=== PATIENT | female | born 1975 | race Caucasian/White ===

== ENCOUNTER 2017-02-05 19:28 | Emergency (ER) | payer MEDICAID ==
[~2017-02-05] VITALS: Ht 175.3 cm; Wt 129.3 kg
[~2017-02-05 19:28] MED LIST: ACET1TAB43; ALPR.25T PO; ALPR1TAB72 PO; AMIT25TA9 PO; ASP325TEC; AZIT250T5 PO; AZTH250C PO; BACL20TA PO; CETI10TA17; CHLO500T4 PO; CLIN150C2 PO; CLN150C PO; CYCL10TA9 PO; DICL75TA2 PO; DOXY100C2 PO; ESTR1TAB24 PO; FLUO20CA25 PO; FLUO40CA PO; FLUO40CA12 PO; FLUT16SP22 NSEACH; FURO-125 PO; FURO20TA4 PO; GBPN600T PO; HCT25T PO; HYDR-757 PO; IPRA4AER IH; KCL10CCR PO; LEVO150T6 PO; LEVO175T2 PO; LEVO200T30 PO; LEVO500T80 PO; MELO-198 PO; MULT1TAB63 PO; NAPR-243 PO; ONDA8TAB13 PO; OSLT75C PO; OXYC-12 PO; OXYC-197 PO; OXYC-309 PO; OXYC1TAB25 PO; POTA10TA10 PO; PRD10T; PRD10T PO; PRD20T PO; PREG50CA2 PO; PREG75CA PO; QTP100T PO; RT-ALBUINH IH; SULF-222 PO; SULF1TAB35 PO; SULF1TAB38 PO; TIZA4TAB3 PO; TIZA4TAB55 PO; TRAZ100T92 PO; TRAZ150T42 PO; VORT10TA PO; [UNRECOGNIZED DRUG - REMARK]; [UNRECOGNIZED DRUG - REMARK]; [UNRECOGNIZED DRUG - REMARK]; vitamin d
--- OUTSIDE RECORDS SUMMARY | 2017-02-05 19:33 | XMS REPORT | Clinical Summary ---
Author Author [facility] Organization [facility] Address Unknown Phone Unavailable Care Team Providers Care Cinder Man Name Role Phone PCP Unavailable Source Comments Some departments are not documenting in the electronic medical record. If you do not see the information that you expected, contact Release of Information in the Health Information Management department at [phone] for further assistance in locating additional records.[facility] Allergies Not on File Current Medications Not on file Active Problems Not on file Social History Tobacco Use Types Packs/Day Years Used Date Never Assessed Sex Assigned at Date Recorded Not on file Last Filed Vital Signs Not on file Plan of Treatment Health Maintenance Due Date Last Done Comments PHYSICAL (COMPREHENSIVE) 12/09/1982 EXAM PERTUSSIS VACCINE 12/09/1986 TETANUS VACCINE 12/09/1992 CERVICAL CANCER SCREENING 12/09/2005 BREAST CANCER SCREENING 2015 INFLUENZA VACCINE 02/09/2017 Results Not on filefrom Last 3 Months
--- OUTSIDE RECORDS SUMMARY | 2017-02-05 19:33 | XMS REPORT ---
Author Author BRENDA WHITEHEAD Organization [employer] Address Unknown Phone Unavailable Care Team Providers Care Bartacker Name Role Phone BRENDA WHITEHEAD CP Unavailable Allergies No Known Allergies Problems Problem Type Condition Code Onset Dates Condition Status Problem Major depressive disorder, single episode, unspecified F32.9 Active Problem Personality disorder, unspecified F60.9 Active Problem Acquired hypothyroidism E03.9 Active Problem History of long-term use of multiple prescription drugs Z92.29 Active Problem Low back pain M54.5 Active Problem Unspecified arthropathy, site unspecified 716.90 Active Problem Anxiety disorder, unspecified F41.9 Active Problem Sinusitis J32.9 Active Problem Edema, unspecified R60.9 Active Medications Medication Code System Code Instructions Start Date End Date Status Dosage Trazodone HCl [facility] [address]-40 100 MG Orally Once a day Dec 23, 2014 1 tablet at bedtime Prozac [facility] [address]-39 40 MG Orally Once a day Apr 03, 2015 2 capsule in the morning Results No Known Results Summary Purpose [employer] Submission
--- OUTSIDE RECORDS SUMMARY | 2017-02-05 19:33 | XMS REPORT ---
Author Author RICARDO ROGERS [facility] Address [address] [place] [address] Care Team Providers Care Tub Mender Name Role Phone RICARDO ROGERS Unavailable PROBLEMS Type Condition ICD9-CM Code LCA20-XE Code Onset Dates Condition Status SNOMED Code Problem Sacral nerve root compression G54.8 Active 054302507 Problem Major depressive disorder F32.9 Active 689608447 Problem Anxiety F41.9 Active 00287449 Problem New daily persistent headache G44.52 Active 510164544 Problem Compression of lumbar nerve root M54.16 Active 837629421 Problem Borderline personality disorder F60.3 Active 45706499 Problem Generalized anxiety disorder F41.1 Active 50308239 Problem Moderate episode of recurrent major depressive disorder F33.1 Active 233309350 Problem Tobacco use disorder F17.200 Active 864675987 Problem Personality disorder, unspecified F60.9 Active 59785824 Problem Mixed hyperlipidemia E78.2 Active 568924535 Problem Controlled type 2 diabetes mellitus without complication, without long -term current use of insulin E11.9 Active 013038647 Problem History of long-term use of multiple prescription drugs Z92.29 Active 214860451 Problem Acquired hypothyroidism E03.9 Active 976318894 Problem Controlled substance agreement terminated Z92.89 Active 948135081 Problem Low back pain M54.5 Active 468593597 Problem Edema, unspecified R60.9 Active 468529485 Problem Bowel incontinence R15.9 Active 87205390 ALLERGIES Substance Reaction Event Type Date Status Robaxin Unknown Drug Allergy Apr, Active Fentanyl Unknown Drug Allergy Apr, Active SOCIAL HISTORY No smoking Hx information available PLAN OF CARE Activity Details Follow Up 3 Months or pending lab Reason:lyrica/thyroid VITAL SIGNS Height 69 in 2016-04-24 Weight 283.0 lbs 2016-04-24 Temperature 98.0 degrees Fahrenheit 2016-04-24 Heart Rate 86 bpm 2016-04-24 Respiratory Rate 20 2016-04-24 BMI 41.79 kg/m2 2016-04-24 Blood pressure systolic 130 mmHg 2016-04-24 Blood pressure diastolic 70 mmHg 2016-04-24 MEDICATIONS Medication Instructions Dosage Frequency Start Date End Date Duration Status Klor-Con M10 10 MEQ Orally Once a day prn 1 tablet Active Trintellix 10 MG Orally Once a day 1 tablet 24h Feb, 30 days Active Levothyroxine Sodium 150 MCG orally daily 1 tablet 24h 30 Active Flonase 50 MCG/ACT Nasally Once a day 1 spray in each nostril 24h Nov, 30 day(s) Active Albuterol Sulfate HFA 108 (90 Base) MCG/ACT Inhalation every 2-4 hrs PRN 2 puffs as needed May, Active Trazodone HCl 100 MG Orally Once a day 1 tablet at bedtime 24h 30 days Active Diclofenac Sodium 75 MG Orally Twice a day 1 tab 12h Active Lyrica 75 MG Orally 2 times a day 1 capsule 12h Active Levaquin 500 MG Orally Once a day 1 tablet 24h Apr, Apr, 10 day(s) Active Xanax 1 MG Orally Three times a day 1.5 tablets 8h Mar, 30 days Active Combivent Respimat 20-100 MCG/ACT Inhalation Four times a day 1 puff 6h Apr, Apr, Active Lasix 20 MG Orally Once a day prn 1 tablet Active RESULTS Name Result Date Reference Range TSH 2016-04-24 TSH 1.380 0.450-4.500 CBC 2016-04-24 WBC 14.5 3.4-10.8 RBC 4.24 3.77-5.28 Hemoglobin 13.3 11.1-15.9 Hematocrit 39.8 34.0-46.6 MCV 94 79-97 MCH 31.4 26.6-33.0 MCHC 33.4 31.5-35.7 RDW 14.2 12.3-15.4 Platelets 456 150-379 Neutrophils 60 Lymphs 30 Monocytes 5 Eos 3 Basos 1 Immature Cells Neutrophils (Absolute) 8.8 1.4-7.0 Lymphs (Absolute) 4.4 0.7-3.1 Monocytes(Absolute) 0.7 0.1-0.9 Eos (Absolute) 0.4 0.0-0.4 Baso (Absolute) 0.1 0.0-0.2 Immature Granulocytes 1 Immature Grans (Abs) 0.1 0.0-0.1 NR Hematology Comments: LIPID PANEL 2016-04-24 Cholesterol, Total 285 100-199 Triglycerides 184 0-149 HDL Cholesterol 52 >39 VLDL Cholesterol James 37 5-40 LDL Cholesterol Calc 196 0-99 Comment: CMP 2016-04-24 Glucose, Serum 141 65-99 BUN 15 6-24 Creatinine, Serum 0.81 0.57-1.00 eGFR If NonAfricn Am 91 >59 eGFR If Africn Am 105 >59 BUN/Creatinine Ratio 19 9-23 Sodium, Serum 141 134-144 Potassium, Serum 3.7 3.5-5.2 Chloride, Serum 99 96-106 Carbon Dioxide, Total 27 18-29 Calcium, Serum 9.1 8.7-10.2 Protein, Total, Serum 6.9 6.0-8.5 Albumin, Serum 4.4 3.5-5.5 Globulin, Total 2.5 1.5-4.5 A/G Ratio 1.8 1.1-2.5 Bilirubin, Total 0.5 0.0-1.2 Alkaline Phosphatase, S 74 39-117 AST (SGOT) 38 0-40 ALT (SGPT) 57 0-32 PROCEDURES Procedure Date Ordered Related Diagnosis Body [facility], 2016 Office Visit, Est Pt., Level 4 Apr 24, 2016 VENIPUNCT, ROUTINE* Apr 24, 2016 IMMUNIZATIONS No Known Immunizations
--- OUTSIDE RECORDS SUMMARY | 2017-02-05 19:33 | XMS REPORT ---
Author Author RICARDO ROGERS [facility] Address [address] [place] [address] Care Team Providers Care Forestry Extension Specialist Name Role Phone RICARDO ROGERS Unavailable PROBLEMS Type Condition ICD9-CM Code MFX20-QF Code Onset Dates Condition Status SNOMED Code Problem Sacral nerve root compression G54.8 Active 904947735 Problem Major depressive disorder F32.9 Active 500097676 Problem Anxiety F41.9 Active 60808525 Problem New daily persistent headache G44.52 Active 145237574 Problem Compression of lumbar nerve root M54.16 Active 642605753 Problem Borderline personality disorder F60.3 Active 20785448 Problem Generalized anxiety disorder F41.1 Active 10737737 Problem Moderate episode of recurrent major depressive disorder F33.1 Active 713465761 Problem Tobacco use disorder F17.200 Active 965660379 Problem Personality disorder, unspecified F60.9 Active 47168867 Problem Mixed hyperlipidemia E78.2 Active 852293196 Problem Controlled type 2 diabetes mellitus without complication, without long -term current use of insulin E11.9 Active 555520725 Problem History of long-term use of multiple prescription drugs Z92.29 Active 348600445 Problem Acquired hypothyroidism E03.9 Active 113396563 Problem Controlled substance agreement terminated Z92.89 Active 501793588 Problem Low back pain M54.5 Active 284443309 Problem Edema, unspecified R60.9 Active 041280986 Problem Bowel incontinence R15.9 Active 58469850 ALLERGIES Unknown Allergies SOCIAL HISTORY No smoking Hx information available PLAN OF CARE VITAL SIGNS MEDICATIONS Unknown Medications RESULTS No Results PROCEDURES No Known procedures IMMUNIZATIONS No Known Immunizations
--- OUTSIDE RECORDS SUMMARY | 2017-02-05 19:34 | XMS REPORT ---
Author Author BRENDA WHITEHEAD [facility] [employer] Address Unknown Phone Unavailable Care Team Providers Care Supervisor Agency Appointments Name Role Phone BRENDA WHITEHEAD CP Unavailable Allergies, Adverse Reactions, Alerts Substance Reaction Event Type Robaxin Info Not Available Drug Allergy Fentanyl Info Not Available Drug Allergy Problems Problem Type Condition Code Onset Dates Condition Status Problem Controlled substance agreement terminated Z92.89 Active Problem History of long-term use of multiple prescription drugs Z92.29 Active Problem Edema, unspecified R60.9 Active Problem Major depressive disorder F32.9 Active Problem Anxiety F41.9 Active Problem Generalized anxiety disorder F41.1 Active Problem Low back pain M54.5 Active Problem Acquired hypothyroidism E03.9 Active Problem Sacral nerve root compression G54.8 Active Problem Bowel incontinence R15.9 Active Assessment Major depressive disorder F32.9 Active Assessment Generalized anxiety disorder F41.1 Active Problem Personality disorder, unspecified F60.9 Active Problem Major depressive disorder, single episode, unspecified F32.9 Active Medications Medication Code System Code Instructions Start Date End Date Status Dosage Lasix [facility] [address]-06 20 MG Orally Once a day prn 1 tablet Klor-Con M10 [facility] [address]-72 10 MEQ Orally Once a day prn 1 tablet Lyrica [facility] [address]-07 75 MG Orally 2 times a day 1 capsule Flonase [facility] [address]-28 50 MCG/ACT Nasally Once a day December 07, 2015 1 spray in each nostril Levothyroxine Sodium [facility] [address]-09 150 MCG TAKE ONE TABLET BY MOUTH ONCE DAILY Trazodone HCl [facility] [address]-38 100 MG Orally Once a day 1 tablet at bedtime Albuterol Sulfate HFA [facility] [address]-11 108 (90 Base) MCG/ACT Inhalation 2 times a day, prn wheezing May 26, 2015 2 puffs as needed Trintellix [facility] [address]-85 10 MG Orally Once a day Feb 21, 2016 1 tablet Diclofenac Sodium [facility] [address]-77 75 MG Orally Twice a day 1 tab Xanax [facility] [address]-76 1 MG Orally three times per day Apr 03, 2015 1 1/2 tablets Procedures Procedure Coding System Code Date Office Visit, Est Pt., Level 3 CPT-4 40553 Feb 21, 2016 Vital Signs Date/Time: Feb 21, 2016 Cardiac Monitoring Heart Rate 80 bpm Weight 283.4 lbs Height 69 in BMI 41.85 Index Blood Pressure Diastolic 81 mmHg Blood Pressure Systolic 127 mmHg Results No Known Results Summary Purpose [employer] Submission
--- OUTSIDE RECORDS SUMMARY | 2017-02-05 19:34 | XMS REPORT ---
Author Author RICARDO ROGERS Organization [employer] Address Unknown Phone Unavailable Care Team Providers Care Sales Applications Engineer Name Role Phone RICARDO ROGERS CP Unavailable Allergies No Known Allergies Problems [...] Instructions Start Date End Date Status Dosage Oxycodone-Acetaminophen [facility] [address]-24 5-325 MG Orally every 6 hrs prn- must last 28 days 1-2 tablet as needed Results No Known Results Summary Purpose [employer] Submission
--- OUTSIDE RECORDS SUMMARY | 2017-02-05 19:34 | XMS REPORT ---
Author Author ASH FREEDMAN Organization [facility] Address [address] [place] [address] Care Team Providers Care Loom Winder Tender Name Role Phone ASH FREEDMAN Unavailable PROBLEMS Type Condition ICD9-CM Code MUH54-YH Code Onset Dates Condition Status SNOMED Code Problem Edema, unspecified R60.9 Active 621238026 Problem Acquired hypothyroidism E03.9 Active 001165677 Problem History of long-term use of multiple prescription drugs Z92.29 Active 956011042 Problem Personality disorder, unspecified F60.9 Active 35675029 Problem Major depressive disorder, single episode, unspecified F32.9 Active 22217375 Problem Controlled substance agreement terminated Z92.89 Active 181921042 Problem Generalized anxiety disorder F41.1 Active 91214207 Problem Major depressive disorder F32.9 Active 213027276 Problem Bowel incontinence R15.9 Active 37998381 Problem Low back pain M54.5 Active 689407944 Problem Anxiety F41.9 Active 08374913 Problem Sacral nerve root compression G54.8 Active 160321268 ALLERGIES Unknown Allergies SOCIAL HISTORY No smoking Hx information available PLAN OF CARE VITAL SIGNS MEDICATIONS Unknown Medications RESULTS No Results PROCEDURES No Known procedures IMMUNIZATIONS No Known Immunizations
--- OUTSIDE RECORDS SUMMARY | 2017-02-05 19:34 | XMS REPORT ---
Author Author BRENDA WHITEHEAD Organization [facility] Address Unknown Care Team Providers Care Dining Room Maid Name Role Phone BRENDA WHITEHEAD Unavailable PROBLEMS Type Condition ICD9-CM Code [id number] Code Onset Dates Condition Status SNOMED Code Problem Edema, unspecified R60.9 Active 665082180 Problem Acquired hypothyroidism E03.9 Active 158986588 Problem History of long-term use of multiple prescription drugs Z92.29 Active 126150339 Problem Personality disorder, unspecified F60.9 Active 77742144 Problem Major depressive disorder, single episode, unspecified F32.9 Active 97827319 Problem Controlled substance agreement terminated Z92.89 Active 639989581 Problem Generalized anxiety disorder F41.1 Active 04499044 Problem Major depressive disorder F32.9 Active 499586942 Problem Bowel incontinence R15.9 Active 53128635 Problem Low back pain M54.5 Active 615206741 Problem Anxiety F41.9 Active 07187482 Problem Sacral nerve root compression G54.8 Active 513087205 ALLERGIES Unknown Allergies SOCIAL HISTORY No smoking Hx information available PLAN OF CARE VITAL SIGNS MEDICATIONS Medication Instructions Dosage Frequency Start Date End Date Duration Status Xanax 1 MG Orally three times per day 1 1/2 tablets Mar, Active RESULTS No Results PROCEDURES No Known procedures IMMUNIZATIONS No Known Immunizations
--- OUTSIDE RECORDS SUMMARY | 2017-02-05 19:34 | XMS REPORT ---
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 Active 525153892 Problem Borderline personality disorder F60.3 Active 75489868 Problem Generalized anxiety disorder F41.1 Active 15896466 Problem Tobacco use disorder F17.200 Active 040109011 Problem Moderate episode of recurrent major depressive disorder F33.1 Active 051014451 Problem Mixed hyperlipidemia E78.2 Active 921708096 Problem Controlled type 2 diabetes mellitus without complication, without long -term current use of insulin E11.9 Active 181924983 Problem Personality disorder, unspecified F60.9 Active 84364951 Problem Edema, unspecified R60.9 Active 939302460 Problem Low back pain M54.5 Active 899531194 Problem Controlled substance agreement terminated Z92.89 Active 226999967 Problem Acquired hypothyroidism E03.9 Active 697341715 Problem History of long-term use of multiple prescription drugs Z92.29 Active 625121968 Problem Anxiety F41.9 Active 21975324 ALLERGIES Substance Reaction Event Type Date Status Robaxin Unknown Drug Allergy Jun, Active Fentanyl Unknown Drug Allergy Jun, Active SOCIAL HISTORY Never Assessed PLAN OF CARE Activity Details Follow Up as needed and 6 months Reason:thyroid VITAL SIGNS Height 69 in 2016-07-02 Weight 289 lbs 2016-07-02 Temperature 98.2 degrees Fahrenheit 2016-07-02 Heart Rate 86 bpm 2016-07-02 Respiratory Rate 2016-07-02 BMI 42.67 kg/m2 2016-07-02 Blood pressure systolic 124 mmHg 2016-07-02 Blood pressure diastolic 86 mmHg 2016-07-02 MEDICATIONS Medication Instructions Dosage Frequency Start Date End Date Duration Status Lovastatin 20 mg Orally Once a day 1 tablet with a meal 24h Apr, 30 day(s) Active Trazodone HCl 100 MG Orally Once a day 1 tablet at bedtime 24h 30 days Active Trintellix 10 MG Orally Once a day 1 tablet 24h 12 Feb, 2016 30 days Active Diclofenac Sodium 75 MG Orally Twice a day 1 tab 12h Active Klor-Con M10 10 MEQ Orally Once a day prn 1 tablet Active Levothyroxine Sodium 150 MCG orally daily 1 tablet 24h 30 Active Albuterol Sulfate HFA 108 (90 Base) MCG/ACT Inhalation every 2-4 hrs PRN 2 puffs as needed May, Active Flonase 50 MCG/ACT Nasally Once a day 1 spray in each nostril 24h Nov, 30 day(s) Active Xanax 1 MG Orally Three times a day 1.5 tablets 8h Mar, 30 days Active Lyrica 25 MG Orally 2 times a day 1 capsule 12h Active Chantix 1 MG Take 1/2 tablet for 3 days; 1/2 tablet twice a day for 3 days ; then 1 tablet twice a day thereafter Jun, Jul, 30 day(s ) Active Lasix 20 MG Orally Once a day prn 1 tablet Active RESULTS Name Result Date Reference Range UA LONG DIP (IN HOUSE) 2016-07-11 Lot # [id number] Exp date 05/2017 Clarity clear Color yellow Odor no GLU neg HIMANSHU neg KET neg SG 1.020 BLO neg pH 5.5 Protein neg URO 0.2 NIT neg GILBERT neg Lot # Exp date PROCEDURES Procedure Date Ordered Result Body Site URINALYSIS, AUTO, W/O SCOPE Jul 02, 2016 IMMUNIZATIONS No Known Immunizations MEDICAL (GENERAL) HISTORY Type Description Date Medical History cardiovascular disease- edema Medical History Hypothyroidism Medical History chronic low back pain Medical History depression Medical History panic disorder Medical History vitamin D deficiency Medical History Right lung biopsy 01/1996 Medical History Unspecified vitamin D deficiency Medical History Controlled substance agreement terminated Medical History spinal stenosis, arthritis, bulging disc's Surgical History wisdom teeth extraction Surgical History hysterectomy 2004 Surgical History orthopedic surgery broken right arm 2003 Surgical History Birthmark removed from left lower leg [address] Head at [facility] 07/2014 Surgical History spinal stimulator - dr. vi [place] mo 2016 Hospitalization History pneumonia Hospitalization History x1 night for observation after spinal stimulator.
--- OUTSIDE RECORDS SUMMARY | 2017-02-05 19:34 | XMS REPORT ---
Author Author RICARDO ROGERS Organization [employer] Address Unknown Phone Unavailable Care Team Providers Care Processing Technician Name Role Phone RICARDO ROGERS CP Unavailable [...] Instructions Start Date End Date Status Dosage Levothyroxine Sodium [facility] [address]-95 175 MCG Orally Once a day Apr 10, 2015 1 tablet Levothyroxine Sodium [facility] [address]-52 150 MCG Orally Once a day TAKE ONE TABLET BY MOUTH DAILY Results No Known Results Summary Purpose [employer] Submission
--- OUTSIDE RECORDS SUMMARY | 2017-02-05 19:34 | XMS REPORT ---
Author Author RICARDO ROGERS [facility] Address [address] [place] [address] Care Team Providers Care Pants Busheler Name Role Phone RICARDO ROGERS Unavailable PROBLEMS Type Condition ICD9-CM Code AVD89-CL Code Onset Dates Condition Status SNOMED Code Problem Sacral nerve root compression G54.8 Active 274376714 Problem Major depressive disorder F32.9 Active 576854738 Problem Anxiety F41.9 Active 84695747 Problem New daily persistent headache G44.52 Active 584337987 Problem Compression of lumbar nerve root M54.16 Active 671837671 Problem Borderline personality disorder F60.3 Active 96633242 Problem Generalized anxiety disorder F41.1 Active 60197212 Problem Moderate episode of recurrent major depressive disorder F33.1 Active 570832702 Problem Tobacco use disorder F17.200 Active 594656846 Problem Personality disorder, unspecified F60.9 Active 48036558 Problem Mixed hyperlipidemia E78.2 Active 710495051 Problem Controlled type 2 diabetes mellitus without complication, without long -term current use of insulin E11.9 Active 785317457 Problem History of long-term use of multiple prescription drugs Z92.29 Active 265195697 Problem Acquired hypothyroidism E03.9 Active 973523820 Problem Controlled substance agreement terminated Z92.89 Active 802226584 Problem Low back pain M54.5 Active 159601978 Problem Edema, unspecified R60.9 Active 818459421 Problem Bowel incontinence R15.9 Active 04284330 ALLERGIES Unknown Allergies SOCIAL HISTORY No smoking Hx information available PLAN OF CARE VITAL SIGNS MEDICATIONS Medication Instructions Dosage Frequency Start Date End Date Duration Status Lovastatin 20 mg Orally Once a day 1 tablet with a meal 24h Apr, 30 day(s) Active RESULTS No Results PROCEDURES No Known procedures IMMUNIZATIONS No Known Immunizations
--- OUTSIDE RECORDS SUMMARY | 2017-02-05 19:34 | XMS REPORT ---
Author Author RICARDO ROGERS [facility] eClinicalWorks Address Unknown Phone Unavailable Care Team Providers Care Director Client Name Role Phone RICARDO ROGERS CP Unavailable Allergies, Adverse Reactions, Alerts Substance Reaction Event Type Tylenol Info Not Available Drug Allergy Fentanyl Info Not Available Drug Allergy Problems Problem Type Condition ICD-9 Code Onset Dates Condition Status Problem Major depressive disorder, recurrent episode, severe, without mention of psychotic behavior 296.33 Active Problem Unspecified arthropathy, site unspecified 716.90 Active Problem Borderline personality disorder 301.83 Active Problem Unspecified personality disorder 301.9 Active Problem Lumbago 724.2 Active Problem Generalized anxiety disorder 300.02 Active Problem Unspecified vitamin D deficiency 268.9 Active Problem Unspecified hypothyroidism 244.9 Active Problem Major depressive disorder, recurrent episode, severe, specified as with psychotic behavior 296.34 Active Problem Panic disorder without agoraphobia 300.01 Active Assessment Bulging lumbar disc 722.10 Active Assessment Spinal cord compression 336.9 Active Assessment Lumbago 724.2 Active Assessment Obesity 278.00 Active Problem Bipolar disorder, unspecified 296.80 Active Medications Medication Code System Code Instructions Start Date End Date Status Dosage tizanidine NDC 0 4 mg 3 times a day May 19, 2014 2 tabs Diclofenac Sodium [facility] [address]-15 75 MG Orally Twice a day May 19, 2014 1 tab Oxycodone-Acetaminophen [facility] [address]-32 5-325 MG Orally every 6 hrs prn 1-2 tablet as needed Xanax [facility] [address]-62 1 MG Orally Twice a day qAM and 1500 and 1 tablet po qHS PRN sleep November 04, 2014 1 1/2 tablets Levothyroxine Sodium [facility] [address]-19 150 MCG Orally Once a day TAKE ONE TABLET BY MOUTH DAILY Diethylpropion HCl ER [facility] [address]-41 75 MG Orally Once a day Feb 01, 2015 Feb 15, 2015 1 tablet Lasix [facility] [address]-68 20 MG Orally Once a day 1 tablet Alprazolam [facility] 39348761109 1 MG TAKE ONE-HALF TABLET BY MOUTH IN THE MORNING, ONE-HALF TABLET AT 3:00PM AND ONE TABLET AT BEDTIME FOR SLEEP NEEDED (MUST KEEP BEHAVIORAL Prozac [facility] [address]-03 20 MG Orally Once a day 3 capsule in the morning Gabapentin [facility] [address]-74 600 MG Orally Three times a day 1 capsule Trazodone HCl [facility] [address]-62 100 MG Orally Once a day Dec 23, 2014 1 tablet at bedtime Klor-Con M10 [facility] [address]-68 10 MEQ Orally Once a day 1 tablet Procedures Procedure Coding System Code Date Office Visit, Est Pt., Level 3 CPT-4 93547 Feb 01, 2015 Vital Signs Date/Time: Feb 01, 2015 Temperature 99.0 F Weight 282.0 lbs Height 69 in BMI 41.64 Index Blood Pressure Diastolic 68 mmHg Blood Pressure Systolic 114 mmHg Cardiac Monitoring Heart Rate 80 bpm Results No Known Results Summary Purpose eClinicalWorks Submission
--- OUTSIDE RECORDS SUMMARY | 2017-02-05 19:35 | XMS REPORT ---
Author Author BRENDA WHITEHEAD Organization eClinical[employer] Address Unknown Phone Unavailable Care Team Providers Care Promotions Manager Name Role Phone BRENDA WHITEHEAD CP Unavailable Allergies No Known Allergies Problems Problem Type Condition Code Onset Dates Condition Status Problem Personality disorder, unspecified F60.9 Active Problem Controlled substance agreement terminated Z92.89 Active Problem Major depressive disorder, single episode, unspecified F32.9 Active Problem Sacral nerve root compression G54.8 Active Problem Bowel incontinence R15.9 Active Problem Anxiety F41.9 Active Problem History of long-term use of multiple prescription drugs Z92.29 Active Problem Edema, unspecified R60.9 Active Problem Low back pain M54.5 Active Problem Acquired hypothyroidism E03.9 Active Medications Medication Code System Code Instructions Start Date End Date Status Dosage Xanax [facility] [address]-90 1 MG Orally three times per day Apr 03, 2015 1 1/2 tablets Results No Known Results Summary Purpose eClinicalWorks Submission
--- OUTSIDE RECORDS SUMMARY | 2017-02-05 19:35 | XMS REPORT ---
Author Author RICARDO ROGERS Organization eClinicalWorks Address Unknown Phone Unavailable Care Team Providers Care Supervisor Electronic Coils Name Role Phone RICARDO ROGERS CP Unavailable Allergies No Known Allergies Problems Problem Type Condition Code Onset Dates Condition Status Problem Personality disorder, unspecified F60.9 Active Problem Anxiety disorder, unspecified F41.9 Active Problem Major depressive disorder, single episode, unspecified F32.9 Active Problem Low back pain M54.5 Active Problem Acquired hypothyroidism E03.9 Active Problem Fatigue R53.83 Active Problem Edema, unspecified R60.9 Active Problem Unspecified arthropathy, site unspecified 716.90 Active Problem History of long-term use of multiple prescription drugs Z92.29 Active Problem Sinusitis J32.9 Active Medications Medication Code System Code Instructions Start Date End Date Status Dosage Oxycodone-Acetaminophen [facility] [address]-81 5-325 MG Orally every 6 hrs prn 1-2 tablet as needed Results No Known Results Summary Purpose eClinicalWorks Submission
--- OUTSIDE RECORDS SUMMARY | 2017-02-05 19:35 | XMS REPORT ---
Author Author ELEUTERIO DUARTE eClinicalWorks Address Unknown Phone Unavailable Care Team Providers Care Banana Handler Name Role Phone ELEUTERIO DUARTE CP Unavailable Allergies, Adverse Reactions, Alerts Substance Reaction Event Type Tylenol Info Not Available Drug Allergy Fentanyl Info Not Available Drug Allergy Problems Problem Type Condition Code Onset Dates Condition Status Assessment Bronchitis J40 Active Problem Major depressive disorder, single episode, [...] Start Date End Date Status Dosage Oxycodone-Acetaminophen [facility] [address]-80 5-325 MG Orally every 6 hrs prn- must last 28 days 1-2 tablet as needed Cough Drops [facility] [address]38 Mouth/Throat not defined Prozac [facility] [address]-91 40 MG Orally Once a day Apr 03, 2015 2 capsule in the morning Klor-Con M10 [facility] [address]-15 10 MEQ Orally Once a day prn 1 tablet Trazodone HCl [facility] [address]-43 100 MG Orally Once a day Dec 23, 2014 1 tablet at bedtime Albuterol Sulfate HFA [facility] [address]-79 108 (90 Base) MCG/ACT Inhalation 2 times a day, prn wheezing May 26, 2015 2 puffs as needed Levothyroxine Sodium [facility] [address]-16 175 MCG Orally Once a day Apr 10, 2015 1 tablet tizanidine [facility] 0 4 mg 3 times a day May 19, 2014 2 tabs Diclofenac Sodium [facility] [address]-11 75 MG Orally Twice a day May 19, 2014 1 tab Gabapentin [facility] [address]-72 600 MG Orally Three times a day 1 capsule PredniSONE [facility] [address]-77 10 MG Orally Once a day May 26, 2015 May 29, 2015 as directed Lasix [facility] [address]-68 20 MG Orally Once a day prn 1 tablet Zyrtec Allergy [facility] [address]-19 10 MG Orally Once a day May 26, 2015 Jun 25, 2015 as directed Mucinex [facility] [address]-96 600 MG Orally every 12 hrs May 26, 2015 May 31, 2015 1 tablet as needed Mucinex Sinus-Max [facility] [address]-13 4-17-981-325 MG Orally not defined Xanax [facility] [address]-78 1 MG Orally 1 1/2 tablets three times per day Apr 03, 2015 as directed Procedures Procedure Coding System Code Date Office Visit, Est Pt., Level 3 CPT-4 98119 May 26, 2015 Vital Signs Date/Time: May 26, 2015 Temperature 98 F Weight 282.4 lbs Height 69 in BMI 41.70 Index Blood Pressure Diastolic 76 mmHg Blood Pressure Systolic 114 mmHg Cardiac Monitoring Heart Rate 84 bpm Results No Known Results Summary Purpose eClinicalWorks Submission
--- OUTSIDE RECORDS SUMMARY | 2017-02-05 19:35 | XMS REPORT ---
Author Author RICARDO ROGERS [employer]ClinicalWorks Address Unknown Phone Unavailable Care Team Providers Care Information Developer Name Role Phone RICARDO ROGERS CP Unavailable [...] Panic disorder without agoraphobia 300.01 Active Assessment Morbid (severe) obesity due to excess calories E66.01 Active Assessment Upper respiratory tract infectious disease J06.9 Active Problem Bipolar disorder, unspecified 296.80 Active Medications Medication Code System Code Instructions Start Date End Date Status Dosage Diethylpropion HCl ER [facility] [address]-18 75 MG Orally Once a day Feb 01, 2015 Feb 15, 2015 1 tablet Klor-Con M10 [facility] [address]-41 10 MEQ Orally Once a day 1 tablet Diclofenac Sodium [facility] [address]-38 75 MG Orally Twice a day May 19, 2014 1 tab PredniSONE [facility] [address]-45 10 MG Orally Once a day Feb 14, 2015 Feb 19, 2015 1 tablet with food or milk Gabapentin [facility] [address]-70 600 MG Orally Three times a day 1 capsule Trazodone HCl [facility] [address]-27 100 MG Orally Once a day Dec 23, 2014 1 tablet at bedtime tizanidine ND 0 4 mg 3 times a day May 19, 2014 2 tabs Lasix [facility] [address]-81 20 MG Orally Once a day 1 tablet Levothyroxine Sodium [facility] [address]-52 150 MCG Orally Once a day TAKE ONE TABLET BY MOUTH DAILY Alprazolam [facility] 88981945657 1 MG TAKE ONE-HALF TABLET BY MOUTH IN THE MORNING, ONE-HALF TABLET AT 3:00PM AND ONE TABLET AT BEDTIME FOR SLEEP NEEDED (MUST KEEP BEHAVIORAL Oxycodone-Acetaminophen [facility] [address]-51 5-325 MG Orally every 6 hrs prn 1-2 tablet as needed Prozac [facility] [address]-06 20 MG Orally Once a day 3 capsule in the morning Procedures Procedure Coding System Code Date Office Visit, Est Pt., Level 3 CPT-4 77951 Feb 14, 2015 Vital Signs Date/Time: Feb 14, 2015 Temperature 97.0 F Weight 282.9 lbs Height 69 in BMI 41.77 Index Blood Pressure Diastolic 72 mmHg Blood Pressure Systolic 122 mmHg Cardiac Monitoring Heart Rate 78 bpm Results No Known Results Summary Purpose eClinicalWorks Submission
--- OUTSIDE RECORDS SUMMARY | 2017-02-05 19:35 | XMS REPORT ---
Author Author RICARDO ROGERS [facility] eClinicalWorks Address Unknown Phone Unavailable Care Team Providers Care Nitric Acid Concentrator Operator Name Role Phone RICARDO ROGERS CP Unavailable Allergies, Adverse Reactions, Alerts Substance Reaction Event Type Robaxin Info Not Available Drug Allergy Fentanyl Info Not Available Drug Allergy Problems Problem Type Condition Code Onset Dates Condition Status Problem Personality disorder, unspecified F60.9 Active Problem Controlled substance agreement terminated Z92.89 Active Problem Major depressive disorder, single episode, unspecified F32.9 Active Assessment Acute non-recurrent maxillary sinusitis J01.00 Active Problem Sacral nerve root compression G54.8 Active Problem Bowel incontinence R15.9 Active Problem Anxiety F41.9 Active Problem History of long-term use of multiple prescription drugs Z92.29 Active Problem Edema, unspecified R60.9 Active Problem Low back pain M54.5 Active Problem Acquired hypothyroidism E03.9 Active Medications Medication Code System Code Instructions Start Date End Date Status Dosage Lyrica [facility] [address]-66 25 MG Orally 2 times a day 1 capsule Flonase [facility] [address]-86 50 MCG/ACT Nasally Once a day December 07, 2015 1 spray in each nostril Chlorzoxazone [facility] [address]-40 500 MG Orally Three times a day 1 tablet as needed Klor-Con M10 [facility] [address]-76 10 MEQ Orally Once a day prn 1 tablet Albuterol Sulfate HFA [facility] [address]-23 108 (90 Base) MCG/ACT Inhalation 2 times a day, prn wheezing May 26, 2015 2 puffs as needed Diclofenac Sodium [facility] [address]-38 75 MG Orally Twice a day 1 tab Xanax [facility] [address]-10 1 MG Orally three times per day Apr 03, 2015 1 1/2 tablets Azithromycin [facility] [address]-61 250 MG Orally Once a day December 07, 2015 Dec 15, 2015 2 tablets on the first day, then 1 tablet daily for 7 days Prozac [facility] [address]-49 40 MG TAKE TWO CAPSULES BY MOUTH IN THE MORNING Lasix [facility] [address]-90 20 MG Orally Once a day prn 1 tablet Levothyroxine Sodium [facility] [address]-27 150 MCG Orally Once a day August 14, 2015 1 tablet Trazodone HCl [facility] [address]-94 100 MG TAKE ONE TABLET BY MOUTH AT BEDTIME Procedures Procedure Coding System Code Date Office Visit, Est Pt., Level 3 CPT-4 97018 December 07, 2015 Vital Signs Date/Time: December 07, 2015 Cardiac Monitoring Heart Rate 80 bpm Weight 273.5 lbs Height 69 in BMI 40.38 Index Blood Pressure Diastolic 82 mmHg Blood Pressure Systolic 124 mmHg Results No Known Results Summary Purpose eClinicalWorks Submission
--- OUTSIDE RECORDS SUMMARY | 2017-02-05 19:35 | XMS REPORT ---
Author Author RICARDO ROGERS [facility] eClinicalWorks Address Unknown Phone Unavailable Care Team Providers Care Screw Remover Name Role Phone RICARDO ROGERS CP Unavailable Allergies, Adverse Reactions, Alerts Substance Reaction Event Type Robaxin Info Not Available Drug Allergy Fentanyl Info Not Available Drug Allergy Problems Problem Type Condition Code Onset Dates Condition Status Problem Personality disorder, unspecified F60.9 Active Problem Controlled substance agreement terminated Z92.89 Active Problem Major depressive disorder, single episode, unspecified F32.9 Active Assessment Lipoma of right lower extremity D17.23 Active Problem Sacral nerve root compression G54.8 Active Problem Bowel incontinence R15.9 Active Problem Anxiety F41.9 Active Problem History of long-term use of multiple prescription drugs Z92.29 Active Problem Edema, unspecified R60.9 Active Problem Low back pain M54.5 Active Problem Acquired hypothyroidism E03.9 Active Medications Medication Code System Code Instructions Start Date End Date Status Dosage Klor-Con M10 [facility] [address]-93 10 MEQ Orally Once a day prn 1 tablet Albuterol Sulfate HFA [facility] [address]-20 108 (90 Base) MCG/ACT Inhalation 2 times a day, prn wheezing May 26, 2015 2 puffs as needed Chlorzoxazone [facility] [address]-55 500 MG Orally Three times a day 1 tablet as needed Diclofenac Sodium [facility] [address]-28 75 MG Orally Twice a day 1 tab Xanax [facility] [address]-24 1 MG Orally three times per day Apr 03, 2015 1 1/2 tablets Lasix [facility] [address]-92 20 MG Orally Once a day prn 1 tablet Lyrica [facility] [address]-03 25 MG Orally 2 times a day 1 capsule Trazodone HCl [facility] [address]-81 100 MG TAKE ONE TABLET BY MOUTH AT BEDTIME Prozac [facility] [address]-17 40 MG TAKE TWO CAPSULES BY MOUTH IN THE MORNING Flonase [facility] [address]-63 50 MCG/ACT Nasally Once a day December 07, 2015 1 spray in each nostril Levothyroxine Sodium [facility] [address]-65 150 MCG TAKE ONE TABLET BY MOUTH ONCE DAILY Procedures Procedure Coding System Code Date Office Visit, Est Pt., Level 3 CPT-4 65657 Dec 20, 2015 Vital Signs Date/Time: Dec 20, 2015 Cardiac Monitoring Heart Rate 74 bpm Weight 282.8 lbs Height 69 in BMI 41.76 Index Blood Pressure Diastolic 80 mmHg Blood Pressure Systolic 110 mmHg Results No Known Results Summary Purpose eClinicalWorks Submission
--- OUTSIDE RECORDS SUMMARY | 2017-02-05 19:36 | XMS REPORT ---
Author Author RICARDO ROGERS Organization eClinicalWorks Address Unknown Phone Unavailable Care Team Providers Care Sales Representative Aircraft Name Role Phone RICARDO ROGERS CP Unavailable Allergies No Known Allergies Problems Problem Type Condition ICD-9 Code Onset Dates Condition Status Problem Major depressive disorder, recurrent episode, severe, without mention of psychotic behavior 296.33 Active Problem Unspecified arthropathy, site unspecified 716.90 Active Problem Borderline personality disorder 301.83 Active Problem Bipolar disorder, unspecified 296.80 Active Problem Unspecified personality disorder 301.9 Active Problem Lumbago 724.2 Active Problem Generalized anxiety disorder 300.02 Active Problem Unspecified vitamin D deficiency 268.9 Active Problem Unspecified hypothyroidism 244.9 Active Problem Major depressive disorder, recurrent episode, severe, specified as with psychotic behavior 296.34 Active Problem Panic disorder without agoraphobia 300.01 Active Medications Medication Code System Code Instructions Start Date End Date Status Dosage Oxycodone-Acetaminophen [facility] [address]-86 5-325 MG Orally every 6 hrs as needed prn must last 30 days. 1-2 tablet as needed Alprazolam [facility] [address]-23 1 MG TAKE ONE-HALF TABLET BY MOUTH IN THE MORNING, ONE-HALF TABLET AT 3:00PM AND ONE TABLET AT BEDTIME FOR SLEEP NEEDED Xanax [facility] [address]-28 1 MG Orally Twice a day qAM and 1500 and 1 tablet po qHS PRN sleep November 04, 2014 1 1/2 tablets Results No Known Results Summary Purpose eClinicalWorks Submission
--- OUTSIDE RECORDS SUMMARY | 2017-02-05 19:36 | XMS REPORT ---
Author Author RICARDO ROGERS [facility] eClinicalWorks Address Unknown Phone Unavailable Care Team Providers Care Wagon Driller Name Role Phone RICARDO ROGERS CP Unavailable Allergies, Adverse Reactions, Alerts Substance Reaction Event Type Tylenol Info Not Available Drug Allergy Fentanyl Info Not Available Drug Allergy Problems Problem Type Condition Code Onset Dates Condition Status Assessment Low back pain M54.5 Active Problem Major depressive disorder, single episode, unspecified F32.9 Active Problem Personality disorder, unspecified F60.9 Active Problem Acquired hypothyroidism E03.9 Active Problem History of long-term use of multiple prescription drugs Z92.29 Active Problem Low back pain M54.5 Active Problem Unspecified arthropathy, site unspecified 716.90 Active Problem Anxiety disorder, unspecified F41.9 Active Problem Sinusitis J32.9 Active Problem Edema, unspecified R60.9 Active Assessment Edema, unspecified R60.9 Active Assessment Sinusitis J32.9 Active Assessment History of long-term use of multiple prescription drugs Z92.29 Active Assessment Acquired hypothyroidism E03.9 Active Medications Medication Code System Code Instructions Start Date End Date Status Dosage tizanidine ND 0 4 mg 3 times a day May 19, 2014 2 tabs Oxycodone-Acetaminophen [facility] [address]-87 5-325 MG Orally every 6 hrs prn- must last 30 days 1-2 tablet as needed Xanax [facility] [address]-50 1 MG Orally 1 1/2 tablets three times per day Apr 03, 2015 as directed Klor-Con M10 [facility] [address]-45 10 MEQ Orally Once a day prn 1 tablet Trazodone HCl [facility] [address]-46 100 MG Orally Once a day Dec 23, 2014 1 tablet at bedtime Diclofenac Sodium [facility] [address]-66 75 MG Orally Twice a day May 19, 2014 1 tab Levothyroxine Sodium [facility] [address]-17 150 MCG Orally Once a day TAKE ONE TABLET BY MOUTH DAILY Prozac [facility] [address]-54 40 MG Orally Once a day Apr 03, 2015 2 capsule in the morning Gabapentin [facility] [address]-90 600 MG Orally Three times a day 1 capsule Azithromycin [facility] [address]-69 250 MG Orally Once a day Apr 04, 2015 Apr 09, 2015 2 tablets on the first day, then 1 tablet daily for 4 days Lasix [facility] [address]-19 20 MG Orally Once a day prn 1 tablet Procedures Procedure Coding System Code Date No Charge CPT-4 73388 Apr 04, 2015 COMPREHEN METABOLIC PANEL CPT-4 14923 Apr 04, 2015 URINALYSIS, AUTO, W/O SCOPE CPT-4 10216 Apr 04, 2015 Comprehensive CPT-4 69039 Apr 04, 2015 ASSAY THYROID STIM HORMONE CPT-4 96925 Apr 04, 2015 VENIPUNCT, ROUTINE* CPT-4 60299 Apr 04, 2015 Vital Signs Date/Time: Apr 04, 2015 Temperature 97.2 F Weight 283.3 lbs Height 69 in BMI 41.83 Index Blood Pressure Diastolic 82 mmHg Blood Pressure Systolic 134 mmHg Cardiac Monitoring Heart Rate 78 bpm Results Name Result Date Reference Range Unit Abnormality Flag UA LONG DIP (IN HOUSE) ----GILBERT negative 20150404 ----BLO negative 20150404 ----SG 1.020 20150404 ----KET negative [id number] ----HIMANSHU negative [id number] ----GLU negative [id number] ----Protein negative 20150404 ----pH 5.5 20150404 ----NIT negative 20150404 ----URO 0.2 20150404 ----Lot # [id number] ----Exp date [id number] ----Clarity cloudy [id number] ----Color dark yellow [id number] ROUTINE VENIPUNCTURE Summary Purpose eClinicalWorks Submission
--- OUTSIDE RECORDS SUMMARY | 2017-02-05 19:36 | XMS REPORT ---
Author Author BRENDA WHITEHEAD Organization eClinicalWorks Address Unknown Phone Unavailable Care Team Providers Care Robotics Systems Engineer Name Role Phone BRENDA WHITEHEAD CP Unavailable [...] Start Date End Date Status Dosage Xanax [facility] [address]-49 1 MG Orally 1 1/2 tablets three times per day Apr 03, 2015 as directed Results No Known Results Summary Purpose eClinicalWorks Submission
--- OUTSIDE RECORDS SUMMARY | 2017-02-05 19:36 | XMS REPORT ---
Author Author BRENDA WHITEHEAD [facility] Address Unknown Care Team Providers Care Playroom Attendant Name Role Phone VENTURABRENDA Unavailable PROBLEMS Type Condition ICD9-CM Code [id number] Code Onset Dates Condition Status SNOMED Code Problem Sacral nerve root compression G54.8 Active 241586165 Problem Major depressive disorder F32.9 Active 493649553 Problem Anxiety F41.9 Active 85324278 Problem New daily persistent headache G44.52 Active 209397151 Problem Compression of lumbar nerve root M54.16 Active 537187069 Problem Borderline personality disorder F60.3 Active 33373967 Problem Generalized anxiety disorder F41.1 Active 40038352 Problem Moderate episode of recurrent major depressive disorder F33.1 Active 212905626 Problem Tobacco use disorder F17.200 Active 583478121 Problem Personality disorder, unspecified F60.9 Active 49568161 Problem Mixed hyperlipidemia E78.2 Active 660908554 Problem Controlled type 2 diabetes mellitus without complication, without long -term current use of insulin E11.9 Active 730048482 Problem History of long-term use of multiple prescription drugs Z92.29 Active 753756778 Problem Acquired hypothyroidism E03.9 Active 016553992 Problem Controlled substance agreement terminated Z92.89 Active 124734549 Problem Low back pain M54.5 Active 316814247 Problem Edema, unspecified R60.9 Active 774455163 Problem Bowel incontinence R15.9 Active 16888712 ALLERGIES Substance Reaction Event Type Date Status Robaxin Unknown Drug Allergy Apr, Active Fentanyl Unknown Drug Allergy Apr, Active SOCIAL HISTORY No smoking Hx information available PLAN OF CARE Activity Details Follow Up 3 Months Reason: VITAL SIGNS Height 69 in 2016-04-22 Weight 283.1 lbs 2016-04-22 Heart Rate 92 bpm 2016-04-22 Respiratory Rate 20 2016-04-22 BMI 41.80 kg/m2 2016-04-22 Blood pressure systolic 138 mmHg 2016-04-22 Blood pressure diastolic 95 mmHg 2016-04-22 MEDICATIONS Medication Instructions Dosage Frequency Start Date End Date Duration Status PredniSONE 10 mg Orally twice a day 1 tablet 12h Apr, 5 days Active Lyrica 75 MG Orally 2 times a day 1 capsule 12h Active Klor-Con M10 10 MEQ Orally Once a day prn 1 tablet Active Diclofenac Sodium 75 MG Orally Twice a day 1 tab 12h Active Lasix 20 MG Orally Once a day prn 1 tablet Active Xanax 1 MG Orally Three times a day 1.5 tablets 8h Mar, 30 days Active Flonase 50 MCG/ACT Nasally Once a day 1 spray in each nostril 24h Nov, 30 day(s) Active Levothyroxine Sodium 150 MCG TAKE ONE TABLET BY MOUTH ONCE DAILY 30 Active Combivent Respimat 20-100 MCG/ACT Inhalation Four times a day 1 puff 6h Apr, Active Trazodone HCl 100 MG Orally Once a day 1 tablet at bedtime 24h 30 days Active Albuterol Sulfate HFA 108 (90 Base) MCG/ACT Inhalation every 2-4 hrs PRN 2 puffs as needed May, Active Levaquin 500 MG Orally Once a day 1 tablet 24h Apr, Apr, 10 day(s) Active Trintellix 10 MG Orally Once a day 1 tablet 24h Feb, 30 days Active RESULTS Name Result Date Reference Range URINE DRUG SCREEN (IN HOUSE) 2016-04-22 Lot # [id number] Exp date Control + COCAINE Negative AMPH Negative MTD Negative THC Negative OPIATE Negative BENZO Positive PCP Negative BAR Negative OXY Negative MAMP Negative TCA Negative BUP Negative MDMA Negative PROCEDURES Procedure Date Ordered Related Diagnosis Body Site MH Office Visit, Est Pt., Level 2 Apr 22, 2016 DRUG SCREEN NON TLC DEVICES Apr 22, 2016 IMMUNIZATIONS No Known Immunizations
--- OUTSIDE RECORDS SUMMARY | 2017-02-05 19:37 | XMS REPORT ---
Author Author BRENDA WHITEHEAD Organization [employer] Address Unknown Phone Unavailable Care Team Providers Care Cryogenics Engineer Name Role Phone BRENDA WHITEHEAD CP [...] Start Date End Date Status Dosage Xanax [facility] [address]-69 1 MG Orally three times per day Apr 03, 2015 1 1/2 tablets Results No Known Results Summary Purpose [employer] Submission
--- OUTSIDE RECORDS SUMMARY | 2017-02-05 19:38 | XMS REPORT ---
Author Author RICARDO ROGERS [facility] e[employer] Address Unknown Phone Unavailable Care Team Providers Care Wool Hat Forming Machine Tender Name Role Phone RICARDO ROGERS CP Unavailable Allergies No Known Allergies Problems Problem Type Condition Code Onset Dates Condition Status Problem Borderline personality disorder 301.83 Active Problem Unspecified hypothyroidism 244.9 Active Problem Unspecified arthropathy, site unspecified 716.90 Active Problem Bipolar disorder, unspecified 296.80 Active Problem Major depressive disorder, recurrent episode, severe, without mention of psychotic behavior 296.33 Active Problem Generalized anxiety disorder 300.02 Active Problem Unspecified personality disorder 301.9 Active Problem Encounter for dental examination Z01.20 Active Problem Panic disorder without agoraphobia 300.01 Active Problem Unspecified vitamin D deficiency 268.9 Active Problem Lumbago 724.2 Active Problem Major depressive disorder, recurrent episode, severe, specified as with psychotic behavior 296.34 Active Medications Medication Code System Code Instructions Start Date End Date Status Dosage Oxycodone-Acetaminophen [facility] [address]-87 5-325 MG Orally every 6 hrs prn- must last 30 days 1-2 tablet as needed Results No Known Results Summary Purpose [employer] Submission
--- OUTSIDE RECORDS SUMMARY | 2017-02-05 19:38 | XMS REPORT ---
Author Author RICARDO ROGERS [facility] Address [address] [place] [address] Care Team Providers Care Zone Manager Name Role Phone RICARDO ROGERS Unavailable PROBLEMS Type Condition ICD9-CM Code LSD88-CG Code Onset Dates Condition Status SNOMED Code Problem Sacral nerve root compression G54.8 Active 682164423 Problem Major depressive disorder F32.9 Active 079530774 Problem Anxiety F41.9 Active 65442038 Problem New daily persistent headache G44.52 Active 058585436 Problem Compression of lumbar nerve root M54.16 Active 195973932 Problem Borderline personality disorder F60.3 Active 31071227 Problem Generalized anxiety disorder F41.1 Active 10449353 Problem Moderate episode of recurrent major depressive disorder F33.1 Active 134070474 Problem Tobacco use disorder F17.200 Active 191102543 Problem Personality disorder, unspecified F60.9 Active 64267387 Problem Mixed hyperlipidemia E78.2 Active 208736044 Problem Controlled type 2 diabetes mellitus without complication, without long -term current use of insulin E11.9 Active 187626131 Problem History of long-term use of multiple prescription drugs Z92.29 Active 446082458 Problem Acquired hypothyroidism E03.9 Active 438608020 Problem Controlled substance agreement terminated Z92.89 Active 862389303 Problem Low back pain M54.5 Active 875517909 Problem Edema, unspecified R60.9 Active 247933417 Problem Bowel incontinence R15.9 Active 97359781 ALLERGIES Unknown Allergies SOCIAL HISTORY No smoking Hx information available PLAN OF CARE VITAL SIGNS MEDICATIONS Unknown Medications RESULTS Name Result Date Reference Range [facility] 2016-05-07 Glucose, Serum 99 65-99 BUN 9 6-24 Creatinine, Serum 0.61 0.57-1.00 eGFR If NonAfricn Am 114 >59 eGFR If Africn Am 131 >59 BUN/Creatinine Ratio 15 9-23 Sodium, Serum 142 134-144 Potassium, Serum 4.3 3.5-5.2 Chloride, Serum 101 96-106 Carbon Dioxide, Total 24 18-29 Calcium, Serum 8.9 8.7-10.2 Protein, Total, Serum 6.5 6.0-8.5 Albumin, Serum 4.1 3.5-5.5 Globulin, Total 2.4 1.5-4.5 A/G Ratio 1.7 1.1-2.5 Bilirubin, Total 0.3 0.0-1.2 Alkaline Phosphatase, S 73 39-117 AST (SGOT) 24 0-40 ALT (SGPT) 35 0-32 PROCEDURES Procedure Date Ordered Related Diagnosis [facility] May 07, [facility] VENIPUNCT, ROUTINE* May 07, 2016 IMMUNIZATIONS No Known Immunizations
--- OUTSIDE RECORDS SUMMARY | 2017-02-05 19:38 | XMS REPORT ---
Author Author CHRISTIANO CARRERA [facility] [employer] Address Unknown Phone Unavailable Care Team Providers Care History Professor Name Role Phone CHRISTIANO CARRERA CP Unavailable Allergies No Known Allergies Problems Problem Type Condition Code Onset Dates Condition Status Problem Personality disorder, unspecified F60.9 Active Problem Controlled substance agreement terminated Z92.89 Active Problem Major depressive disorder, single episode, unspecified F32.9 Active Assessment Borderline personality disorder 301.83 Active Assessment Generalized anxiety disorder 300.02 Active Problem Sacral nerve root compression G54.8 Active Problem Bowel incontinence R15.9 Active Problem Anxiety F41.9 Active Problem History of long-term use of multiple prescription drugs Z92.29 Active Problem Edema, unspecified R60.9 Active Problem Low back pain M54.5 Active Problem Acquired hypothyroidism E03.9 Active Medications No Known Medications Procedures Procedure Coding System Code Date Psychotherapy, patient &/family, 45 minutes, established patient CPT-4 42100 December 06, 2015 Results No Known Results Summary Purpose [employer] Submission
--- OUTSIDE RECORDS SUMMARY | 2017-02-05 19:38 | XMS REPORT ---
Author Author BRENDA WHITEHEAD Organization [employer] Address Unknown Phone Unavailable Care Team Providers Care Fund Director Name Role Phone BRENDA WHITEHEAD CP Unavailable [...] Start Date End Date Status Dosage Xanax [facility] [address]-42 1 MG Orally 1 1/2 tablets three times per day Apr 03, 2015 as directed Results No Known Results Summary Purpose [employer] Submission
--- OUTSIDE RECORDS SUMMARY | 2017-02-05 19:38 | XMS REPORT ---
Author Author BRENDA WHITEHEAD [facility] [employer] Address Unknown Phone Unavailable Care Team Providers Care Bank Clerk Name Role Phone BRENDA WHITEHEAD CP Unavailable Allergies, Adverse Reactions, Alerts Substance Reaction Event Type Tylenol Info Not Available Drug Allergy Fentanyl Info Not Available Drug Allergy Problems Problem Type Condition Code Onset Dates Condition Status Assessment Major depressive disorder F32.9 Active Problem Unspecified arthropathy, site unspecified 716.90 Active Assessment Generalized anxiety disorder F41.1 Active Problem Anxiety disorder, unspecified F41.9 Active Problem Major depressive disorder, single episode, unspecified F32.9 Active Problem Encounter for dental examination Z01.20 Active Problem Unspecified vitamin D deficiency 268.9 Active Problem Unspecified hypothyroidism 244.9 Active Problem Personality disorder, unspecified F60.9 Active Problem Lumbago 724.2 Active Medications Medication Code System Code Instructions Start Date End Date Status Dosage Diclofenac Sodium [facility] [address]-10 75 MG Orally Twice a day May 19, 2014 1 tab Levothyroxine Sodium [facility] [address]-65 150 MCG Orally Once a day TAKE ONE TABLET BY MOUTH DAILY tizanidine [facility] 0 4 mg 3 times a day May 19, 2014 2 tabs Trazodone HCl [facility] [address]-54 100 MG Orally Once a day Dec 23, 2014 1 tablet at bedtime Klor-Con M10 [facility] [address]-01 10 MEQ Orally Once a day 1 tablet Oxycodone-Acetaminophen [facility] [address]-35 5-325 MG Orally every 6 hrs prn- must last 30 days 1-2 tablet as needed Xanax [facility] [address]-17 1 MG Orally 1 1/2 tablets three times per day Apr 03, 2015 as directed Prozac [facility] [address]-05 40 MG Orally Once a day Apr 03, 2015 2 capsule in the morning Gabapentin [facility] [address]-23 600 MG Orally Three times a day 1 capsule Lasix [facility] [address]-25 20 MG Orally Once a day 1 tablet Procedures Procedure Coding System Code Date Office Visit, Est Pt., Level 3 CPT-4 22517 Apr 03, 2015 Vital Signs Date/Time: Apr 03, 2015 Cardiac Monitoring Heart Rate 80 bpm Weight 282.0 lbs Height 69 in BMI 41.64 Index Blood Pressure Diastolic 65 mmHg Blood Pressure Systolic 110 mmHg Results No Known Results Summary Purpose [employer]ClinicalWorks Submission
--- OUTSIDE RECORDS SUMMARY | 2017-02-05 19:39 | XMS REPORT ---
Author Author BRENDA WHITEHEAD Organization [employer] Address Unknown Phone Unavailable Care Team Providers Care Infusion Pharmacist Name Role Phone BRENDA WHITEHEAD CP Unavailable Allergies No Known Allergies Problems Problem Type Condition Code Onset Dates Condition Status Problem Controlled substance agreement terminated Z92.89 Active Problem History of long-term use of multiple prescription drugs Z92.29 Active Problem Edema, unspecified R60.9 Active Problem Personality disorder, unspecified F60.9 Active Problem Major depressive disorder, single episode, unspecified F32.9 Active Problem Major depressive disorder F32.9 Active Problem Anxiety F41.9 Active Problem Generalized anxiety disorder F41.1 Active Problem Low back pain M54.5 Active Problem Acquired hypothyroidism E03.9 Active Problem Sacral nerve root compression G54.8 Active Problem Bowel incontinence R15.9 Active Medications Medication Code System Code Instructions Start Date End Date Status Dosage Xanax [facility] [address]-29 1 MG Orally three times per day Apr 03, 2015 1 1/2 tablets Results No Known Results Summary Purpose [employer] Submission
--- OUTSIDE RECORDS SUMMARY | 2017-02-05 19:39 | XMS REPORT ---
Author Author RICARDO ROGERS Organization [employer] Address Unknown Phone Unavailable Care Team Providers Care Project Specialist Name Role Phone RICARDO ROGERS CP Unavailable [...] Date End Date Status Dosage Oxycodone-Acetaminophen [facility] [address]-53 5-325 MG Orally every 6 hrs prn- must last 28 days- appt needed before due for next refill 1-2 tablet as needed Results No Known Results Summary Purpose [employer]Clinical[employer] Submission
--- OUTSIDE RECORDS SUMMARY | 2017-02-05 19:39 | XMS REPORT ---
Author Author ESTHER PARKER [facility] e[employer] Address Unknown Phone Unavailable Care Team Providers Care Engineering Group Leader Name Role Phone ESTHER PARKER CP Unavailable Allergies, Adverse Reactions, Alerts Substance Reaction Event Type Tylenol Info Not Available Drug Allergy Fentanyl Info Not Available Drug Allergy Problems Problem Type Condition Code Onset Dates Condition Status Problem Borderline personality disorder 301.83 Active Problem Unspecified hypothyroidism 244.9 Active Problem Unspecified arthropathy, site unspecified 716.90 Active Problem Generalized anxiety disorder 300.02 Active Problem Unspecified personality disorder 301.9 Active Problem Encounter for dental examination Z01.20 Active Problem Panic disorder without agoraphobia 300.01 Active Problem Unspecified vitamin D deficiency 268.9 Active Problem Lumbago 724.2 Active Problem Major depressive disorder, recurrent episode, severe, specified as with psychotic behavior 296.34 Active Assessment Encounter for dental examination Z01.20 Active Problem Bipolar disorder, unspecified 296.80 Active Problem Major depressive disorder, recurrent episode, severe, without mention of psychotic behavior 296.33 Active Medications Medication Code System Code Instructions Start Date End Date Status Dosage Prozac [facility] [address]-82 20 MG Orally Once a day 3 capsule in the morning tizanidine NDC 0 4 mg 3 times a day May 19, 2014 2 tabs Trazodone HCl [facility] [address]-90 100 MG Orally Once a day Dec 23, 2014 1 tablet at bedtime Gabapentin [facility] [address]-72 600 MG Orally Three times a day 1 capsule Oxycodone-Acetaminophen [facility] [address]-74 5-325 MG Orally every 6 hrs prn 1-2 tablet as needed Xanax [facility] [address]-61 1 MG Orally Twice a day qAM and 1500 and 1 tablet po qHS PRN sleep November 04, 2014 1 1/2 tablets Procedures Procedure Coding System Code Date PROPHYLAXIS - ADULT CPT-4 D1110 Mar 01, 2015 Vital Signs Date/Time: Mar 01, 2015 Blood Pressure Diastolic 63 mmHg Blood Pressure Systolic 120 mmHg Height 69 in Results No Known Results Summary Purpose [employer]ClinicalWorks Submission
--- OUTSIDE RECORDS SUMMARY | 2017-02-05 19:39 | XMS REPORT ---
Author Author BRENDA WHITEHEAD Organization [employer] Address Unknown Phone Unavailable Care Team Providers Care Industrial Gas Fitter Helper Name Role Phone BRENDA WHITEHEAD CP Unavailable [...] Start Date End Date Status Dosage Xanax [facility] [address]-64 1 MG Orally 1 1/2 tablets three times per day Apr 03, 2015 as directed Results No Known Results Summary Purpose [employer]ClinicalWorks Submission
--- NOTE | 2017-02-05 19:57 | ED Lower Extremity ---
General Chief Complaint: Lower Extremity Stated Complaint: LEFT KNEE Nursing Triage Note: PT AMBULATED TO ROOM WITH LITTLE DIFFICULTY. PT C/O LEFT KNEE PAIN. PT STATES SHE HIT HER LEFT KNEE ON HER CAR GLOVEBOX APPROX. 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 PT TOOK IBUPROFEN APPROX. 30 MINUTES AFTER INCIDENT HAPPENED. Nursing Sepsis Screen: No Definite Risk Source: patient Exam Limitations: no limitations History of Present Illness Time seen by provider: 19:57 Initial Comments 41-year-old female patient presents to the emergency department with complaints of left knee pain after hitting her knee on the glove box 3 hours prior to arrival. Patient does report taking ibuprofen approximately 30 minutes after incident happened without improvement in symptoms. Patient states she does have a history of arthritis in the left knee. 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) Pain/Injury Location: left knee Method of Injury: direct blow Modifying Factors: Worse With Movement Allergies and Home Medications Allergies Coded Allergies: methocarbamol (Unverified Allergy, Unknown, 10/13/15) fentanyl (Verified Adverse Reaction, Unknown, 11/19/13) Home Medications Albuterol/Ipratropium 4 Gm Aero, 1 PUFF IH QID, (Reported) Alprazolam 1 Mg Tab.rapdis, 1.5 MG PO TID, (Reported) TAKE 1 1/2 (1MG) TABLET Diclofenac Sodium 75 Mg Tablet.dr, 75 MG PO BID, (Reported) Fluticasone Propionate 16 Gm [place].susp, 1 SPRAY NSEACH DAILY PRN for CONGESTION , (Reported) Furosemide 20 Mg Tablet, 20 MG PO DAILY PRN for swelling, (Reported) Levofloxacin 500 Mg Tablet, 500 MG PO DAILY, (Reported) last dose 04/26/16 Levothyroxine Sodium 150 Mcg Tablet, 150 MCG PO DAILY, (Reported) Oxycodone HCl/Acetaminophen 1 Each Tablet, 1 EACH PO Q4H PRN for PAIN, #14 Prescribed by: QIANA LEWIS on 12/25/15 7797 Potassium Chloride 10 Meq Tablet.er, 10 MEQ PO DAILY PRN for take with lasix, ( Reported) Prednisone 10 Mg Tab, 10 MG PO BID, (Reported) last dose 04/26/16 Pregabalin 75 Mg Capsule, 75 MG PO BID, (Reported) Tizanidine HCl 4 Mg Tablet, 8 TAB PO TID, (Reported) take 2 (4mg) tabs Trazodone HCl 100 Mg Tablet, 100 MG PO HS, (Reported) Vortioxetine Hydrobromide 10 Mg Tablet, 10 MG PO DAILY, (Reported) Constitutional: no symptoms reported Musculoskeletal: see HPI, No back pain, joint pain (left knee), joint swelling (left knee) Skin: No change in color Psychiatric/Neurological: Denies Numbness, Denies Paresthesia, Denies Tingling , Denies Weakness All Other Systems Reviewed Negative Unless Noted: Yes (Negative excepted noted.) Past Vcovsxy-Crrqap-Uuuozw Hx Patient Social History Alcohol Use: Denies Use Recreational Drug Use: No Smoking Status: Current Everyday Smoker Type Used: Cigarettes 2nd Hand Smoke Exposure: Yes Recent Foreign Travel: No Contact w/Someone Who Travel: No Recent Infectious Disease Expo: No Recent Hopitalizations: No Physical Abuse: No Sexual Abuse: No Immunizations Up To Date Tetanus Booster (TDap): Unknown Seasonal Allergies Seasonal Allergies: No Surgeries History of Surgeries: Yes (dahlia & screws right arm, chest tube, tracheostomy, bx right lung, DENTAL) Surgeries: Gallbladder, Hysterectomy, Orthopedic Respiratory History of Respiratory Disorde: Yes (surgical bx for pneumonia/on ventilator 1995) Respiratory Disorders: Pneumonia, Chronic Bronchitis Currently Using CPAP: No Currently Using BIPAP: No Cardiovascular History of Cardiac Disorders: No Neurological History of Neurological Disord: Yes (lumbar neural foraminal stenosis) Reproductive System Hx Reproductive Disorders: Yes 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 Genitourinary History of Genitourinary Disor: No Gastrointestinal History of Gastrointestinal Di: Yes Gastrointestinal Disorders: Gastroesophageal Reflux Musculoskeletal History of Musculoskeletal Dis: Yes (lumbar neuroforaminal stenosis) Musculoskeletal Disorders: Degenerate Disk Disease, Chronic Back Pain Endocrine History of Endocrine Disorders: Yes Endocrine Disorders: Hypothyroidsim, Diabetes, Non-Insulin dep HEENT History of HEENT Disorders: No Cancer History of Cancer: No Psychosocial History of Psychiatric Problem: Yes Behavioral Health Disorders: Anxiety, Depression Suicide Risk Score: 0 Integumentary History of Skin or Integumenta: Yes (h/o mrsa infection ) Blood Transfusions History of Blood Disorders: No Reviewed Nursing Assessment Reviewed/Agree w Nursing PMH: Yes Family Medical History Significant Family History: No Pertinent Family Hx Physical Exam Vital Signs Vital Sign - Last 12Hours 02/05/17 19:35 Temp 97.2 Pulse 97 Resp 20 B/P (MAP) 122/75 Pulse Ox 93 O2 Delivery Room Air Capillary Refill : Less Than 3 Seconds General Appearance: WD/WN, no apparent distress Cardiovascular: normal peripheral pulses, regular rate, rhythm, no edema, no murmur Respiratory: lungs clear, normal breath sounds, no respiratory distress, no accessory muscle use Back: normal inspection Hips: bilateral hip non-tender, bilateral hip normal inspection, bilateral hip normal range of motion, bilateral hip no evidence of injury Legs: bilateral leg non-tender, bilateral leg normal inspection, bilateral leg normal range of motion, bilateral leg no evidence of injury Knees: right knee non-tender, right knee normal inspection, right knee normal range of motion, bilateral knee no evidence of injury, left knee bone tenderness (generalized bony tenderness left knee), left knee joint effusion, left knee pain, left knee soft tissue tenderness (generalized soft tissue tenderness left knee) Ankles: bilateral ankle non-tender, bilateral ankle normal inspection, bilateral ankle normal range of motion, bilateral ankle no evidence of injury Feet: bilateral foot non-tender, bilateral foot normal inspection, bilateral foot normal range of motion, bilateral foot no evidence of injury Neurologic/Tendon: normal sensation, normal motor functions, normal tendon functions, responds to pain, no evidence tendon injury Neurologic/Psychiatric: no motor/sensory deficits, alert, normal mood/affect, oriented x 3 Skin: normal color, warm/dry, No ecchymosis (no evidence of trauma visualized to the left knee) Progress/Results/Core Measures Results/Orders My Orders Orders - SHAISTA CHACKO Knee, Left, 3 Views (02/05/17 19:57) Hydrocodone/Apap 5/325 Tablet (Lortab 5 (02/05/17 20:55) Vital Signs/I&O Vital Sign - Last 12Hours 02/05/17 19:35 Temp 97.2 Pulse 97 Resp 20 B/P (MAP) 122/75 Pulse Ox 93 O2 Delivery Room Air Blood Pressure Mean: 91 Diagnostic Imaging Diagonstic Imaging: Xray Plain Films/CT/US/NM/MRI: knee Comments FINDINGS: There is no left knee joint effusion. There is no identified acute fracture. The joint spaces are well preserved. There is no radiopaque foreign body. IMPRESSION: No identified acute bony abnormality of the left knee. Dictated on workstation # [id number] Reviewed: Reviewed by Me (radiology report reviewed by me) Departure Communication (Admissions) Progress Notes Diagnostic findings discussed with the patient. Plan for discharge to home. 4 inch Aakash wrap applied to the left knee. Impression Impression: Primary Impression: Contusion of knee Qualified Codes: S80.02XA - Contusion of left knee, initial encounter Disposition: HOME, SELF-CARE Condition: Improved Departure-Patient Inst. Decision time for Depature: 21:22 Referrals: [facility] (PCP/Family) Primary Care Physician Patient Instructions: Carranza's Cyst (DC) Add. Discharge Instructions: All discharge instructions reviewed with patient and/or family. Voiced understanding. Tylenol extra strength [id number] as directed for pain. Ibuprofen 800 mg by mouth every 8 hours as needed for pain. Elevate the left knee on pillows. Ice pack for 20 minute intervals as needed. Aakash wrap as instructed. Activity as tolerated. Follow-up with your family practitioner if no improvement in symptoms in 7-10 days. Return to the emergency department for worsened symptoms or any other concerns. SHAISTA CHACKO Feb 05, 2017 19:57
[2017-02-05] MEDS ORDERED: HYDROcodone/APAP 5 MG/325 MG (LORTAB) TAB PO STA (20:55)
--- NOTE | 2017-02-05 21:08 | Diagnostic Imaging Report ---
EXAMINATION: Left knee radiographs, 3 views. COMPARISON: None. HISTORY: 41-year-old female, knee pain. Injury. FINDINGS: There is no left knee joint effusion. There is no identified acute fracture. The joint spaces are well preserved. There is no radiopaque foreign body. IMPRESSION: No identified acute bony abnormality of the left knee. Dictated by: Dictated on workstation # [id number]
[2017-02-05 22:02] VITALS: BP 138/82
== END 2017-02-05 22:02 | disposition home or self-care (01) ==
LOC: EDUNIT# 19:28 → ER 19:29
DX: S80.02XA Contusion of left knee, initial encounter (principal); M17.12 Unilateral primary osteoarthritis, left knee; J42 Unspecified chronic bronchitis; K21.9 Gastro-esophageal reflux disease without esophagitis; E03.9 Hypothyroidism, unspecified; E11.9 Type 2 diabetes mellitus without complications; F41.9 Anxiety disorder, unspecified; F32.9 Major depressive disorder, single episode, unspecified; F17.210 Nicotine dependence, cigarettes, uncomplicated; Z90.710 Acquired absence of both cervix and uterus; Z93.0 Tracheostomy status; Z87.01 Personal history of pneumonia (recurrent); W22.09XA Striking against other stationary object, initial encounter
CPT/HCPCS: 73562; 99283

== ENCOUNTER 2017-02-24 23:16 | Emergency (ER) | payer MEDICAID ==
--- OUTSIDE RECORDS SUMMARY | 2017-02-25 06:45 | XMS REPORT | Clinical Summary ---
Author Author [facility] Organization [facility] Address Unknown Phone Unavailable Care Team Providers Care Milk Tanker Driver Name Role Phone PCP Unavailable Source Comments Some departments are not documenting in the electronic medical record. If you do not see the information that you expected, contact Release of Information in the Health Information Management department at [phone] for further assistance in locating additional records.[facility] Allergies Not on File Current Medications Not [...] 12/09/2005 BREAST CANCER SCREENING 2015 INFLUENZA VACCINE 2016 Results Not on filefrom Last 3 Months
--- OUTSIDE RECORDS SUMMARY | 2017-02-25 06:45 | XMS REPORT ---
Author Author RICARDO ROGERS [facility] Address [address] [place] [address] Care Team Providers Care Substitute Crossing Guard Name Role Phone RICARDO ROGERS Unavailable PROBLEMS Type Condition ICD9-CM Code [id number] Code Onset Dates Condition Status SNOMED Code Problem Bowel incontinence R15.9 Active 28317204 Problem Generalized anxiety disorder F41.1 Active 05225618 Problem Major depressive disorder F32.9 Active 434930551 Problem Mononeuropathy due to secondary diabetes E13.41 Active 7287437 Problem Compression of lumbar nerve root M54.16 Active 825371001 Problem Tobacco use disorder F17.200 Active 284950829 Problem Borderline personality disorder F60.3 Active 82363242 Problem New daily persistent headache G44.52 Active 379660376 Problem Moderate episode of recurrent major depressive disorder F33.1 Active 501905079 Problem Controlled type 2 diabetes mellitus without complication, without long -term current use of insulin E11.9 Active 978417731 Problem Controlled substance agreement terminated Z92.89 Active 209098007 Problem Personality disorder, unspecified F60.9 Active 09221160 Problem Mixed hyperlipidemia E78.2 Active 863178620 Problem Low back pain M54.5 Active 897097734 Problem Acquired hypothyroidism E03.9 Active 067782935 Problem History of long-term use of multiple prescription drugs Z92.29 Active 115770085 Problem Anxiety F41.9 Active 04289711 Problem Edema, unspecified R60.9 Active 634432201 Problem Sacral nerve root compression G54.8 Active 870864296 ALLERGIES No Information SOCIAL HISTORY Never Assessed PLAN OF CARE VITAL SIGNS MEDICATIONS Unknown Medications RESULTS No Results PROCEDURES No Known procedures IMMUNIZATIONS No Known Immunizations MEDICAL (GENERAL) HISTORY [...] History Birthmark removed from left lower leg [address] Head at [facility] 07/2014 Surgical History spinal stimulator - dr. vi hodge 2016 Hospitalization History pneumonia Hospitalization History x1 night for observation after spinal stimulator.
--- OUTSIDE RECORDS SUMMARY | 2017-02-25 06:48 | XMS REPORT ---
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 Active 145132183 Problem Tobacco use disorder F17.200 Active 589366756 Problem Borderline personality disorder F60.3 Active 34112437 Problem New daily persistent headache G44.52 Active 447193681 Problem Moderate episode of recurrent major depressive disorder F33.1 Active 910349459 Problem Controlled type 2 diabetes mellitus without complication, without long -term current use of insulin E11.9 Active 207203947 Problem Controlled substance agreement terminated Z92.89 Active 945008883 Problem Personality disorder, unspecified F60.9 Active 15979013 Problem Mixed hyperlipidemia E78.2 Active 791581720 Problem Low back pain M54.5 Active 551450115 Problem Acquired hypothyroidism E03.9 Active 751663803 Problem History of long-term use of multiple prescription drugs Z92.29 Active 701561774 Problem Anxiety F41.9 Active 05286488 Problem Edema, unspecified R60.9 Active 201394503 Problem Sacral nerve root compression G54.8 Active 962163413 ALLERGIES Substance Reaction Event Type Date Status Robaxin Unknown Drug Allergy Jul, Active Fentanyl Unknown Drug Allergy Jul, Active SOCIAL HISTORY Never Assessed PLAN OF CARE Activity Details Follow Up 3 Months Reason: VITAL SIGNS Height 69 in 2016-07-17 Weight 281 lbs 2016-07-17 Heart Rate 88 bpm 2016-07-17 Respiratory Rate 18 2016-07-17 BMI 41.49 kg/m2 2016-07-17 Blood pressure systolic 110 mmHg 2016-07-17 Blood pressure diastolic 84 mmHg 2016-07-17 MEDICATIONS Medication Instructions Dosage Frequency Start Date End Date Duration Status Lyrica 25 MG Orally 2 times a day 1 capsule 12h Active Lovastatin 20 mg Orally Once a day 1 tablet with a meal 24h 16 Apr, 2016 30 day(s) Active Albuterol Sulfate HFA 108 (90 Base) MCG/ACT Inhalation every 2-4 hrs PRN 2 puffs as needed May, Active Levothyroxine Sodium 150 MCG orally daily 1 tablet 24h 30 Active Klor-Con M10 10 MEQ Orally Once a day prn 1 tablet Active Diclofenac Sodium 75 MG Orally Twice a day 1 tab 12h Active Chantix 1 MG Take 1/2 tablet for 3 days; 1/2 tablet twice a day for 3 days ; then 1 tablet twice a day thereafter Jun, Jul, 30 day(s ) Active Xanax 1 MG Orally Three times a day 1.5 tablets 8h Mar, 30 days Active Flonase 50 MCG/ACT Nasally Once a day 1 spray in each nostril 24h Nov, 30 day(s) Active Trintellix 10 MG Orally Once a day 1 tablet 24h 12 Feb, 2016 30 days Active Trazodone HCl 150 MG Orally Once a day 1 tablet at bedtime as needed 24h Jul, 30 day(s) Active Lasix 20 MG Orally Once a day prn 1 tablet Active RESULTS No Results PROCEDURES No Known [...] lower leg [address] Adilene hooper [facility] [place] 07/2014 Surgical History spinal stimulator - dr. vi hodge [place] 2016 Hospitalization History pneumonia Hospitalization History x1 night for observation after spinal stimulator.
[2017-02-25] MEDS ORDERED: PRD20T PO (11:42)
== END 2017-02-25 00:02 | disposition left against medical advice (07) ==
LOC: EDUNIT# 23:16 → ER 23:18
DX: J98.9 Respiratory disorder, unspecified (principal)

== ENCOUNTER 2017-02-25 09:03 | Emergency (ER) | payer MEDICAID ==
[~2017-02-25] VITALS: Ht 175.3 cm; Wt 121.6 kg
[2017-02-25] MEDS ORDERED: RT-ALBUTEROL SULF 2.5 MG/3 ML PRE-MIX VIAL INH STA (09:29)
[2017-02-25] MEDS ORDERED: RT-ALBUTEROL/IPRATROPIUM 3 ML (DUONEB) VIAL INH ONE (09:30)
--- NOTE | 2017-02-25 10:17 | ED Respiratory ---
General Chief Complaint: Respiratory Problems Stated Complaint: BREATHING DIFFICULTIES Nursing Triage Note: PT AMBULATED TO ROOM 6 PT CO OF WHEEZING AND SOA Source: patient Exam Limitations: no limitations History of Present Illness Time seen by provider: 09:30 Initial Comments Here with reports of wheezing and shortness of air that has been increasing over the past couple days. Presented last night but did not stay for this. She did do her albuterol inhaler at home and that helped a little bit. States that she's had history of pneumonia before and episodes of bronchitis. Not currently on antibiotics or steroids. Does note that she's had some increased nasal congestion recently. Timing/Duration: getting worse Severity: moderate Prior Episodes/Possible Cause: occasional episodes Associated Symptoms: No chest pain/soreness, cough, No fever/chills, nasal congestion, nasal drainage, shortness of breath, No sore throat, wheezing Allergies and Home Medications Allergies Coded Allergies: methocarbamol (Unverified Allergy, Unknown, 10/13/15) fentanyl (Verified Adverse Reaction, Unknown, 11/19/13) Home Medications Albuterol/Ipratropium 4 Gm Aero, 1 PUFF IH QID, (Reported) Alprazolam 1 Mg Tab.rapdis, 1.5 MG PO TID, (Reported) TAKE 1 1/2 (1MG) TABLET Diclofenac Sodium 75 Mg Tablet.dr, 75 MG PO BID, (Reported) Fluticasone Propionate 16 Gm [place].susp, 1 SPRAY NSEACH DAILY PRN for CONGESTION , (Reported) Furosemide 20 Mg Tablet, 20 MG PO DAILY PRN for swelling, (Reported) Levothyroxine Sodium 150 Mcg Tablet, 150 MCG PO DAILY, (Reported) Potassium Chloride 10 Meq Tablet.er, 10 MEQ PO DAILY PRN for take with lasix, ( Reported) Prednisone 10 Mg Tab, 10 MG PO BID, (Reported) last dose 04/26/16 Pregabalin 75 Mg Capsule, 75 MG PO BID, (Reported) Tizanidine HCl 4 Mg Tablet, 8 TAB PO TID, (Reported) take 2 (4mg) tabs Trazodone HCl 100 Mg Tablet, 100 MG PO HS, (Reported) Vortioxetine Hydrobromide 10 Mg Tablet, 10 MG PO DAILY, (Reported) Constitutional: see HPI, No chills, No fever EENTM: nose congestion, No throat pain Respiratory: see HPI Cardiovascular: no symptoms reported Gastrointestinal: no symptoms reported Genitourinary: no symptoms reported Musculoskeletal: no symptoms reported All Other Systems Reviewed Negative Unless Noted: Yes Past Ahdtvxw-Tfsiej-Nxdeyy Hx Patient Social History Alcohol Use: Denies Use Recreational Drug Use: No Type Used: Cigarettes 2nd Hand Smoke Exposure: Yes Recent Foreign Travel: No Contact w/Someone Who Travel: No Recent Infectious Disease Expo: No Recent Hopitalizations: No Physical Abuse: No Sexual Abuse: No Immunizations Up To Date Tetanus Booster (TDap): Unknown Seasonal Allergies Seasonal Allergies: No Surgeries History of Surgeries: Yes (dahlia & screws right arm, chest tube, tracheostomy, bx right lung, DENTAL) Surgeries: Gallbladder, Hysterectomy, Orthopedic Respiratory History of Respiratory Disorde: Yes (surgical bx for pneumonia/on ventilator 1995) Respiratory Disorders: Pneumonia, Chronic Bronchitis Currently Using CPAP: No Currently Using BIPAP: No Cardiovascular History of Cardiac Disorders: No Neurological History of Neurological Disord: Yes (lumbar neural foraminal stenosis) Reproductive System Hx Reproductive Disorders: Yes 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 Genitourinary History of Genitourinary Disor: No Gastrointestinal History of Gastrointestinal Di: Yes Gastrointestinal Disorders: Gastroesophageal Reflux Musculoskeletal History of Musculoskeletal Dis: Yes (lumbar neuroforaminal stenosis) Musculoskeletal Disorders: Degenerate Disk Disease, Chronic Back Pain Endocrine History of Endocrine Disorders: Yes Endocrine Disorders: Hypothyroidsim, Diabetes, Non-Insulin dep HEENT History of HEENT Disorders: No Cancer History of Cancer: No Psychosocial History of Psychiatric Problem: Yes Behavioral Health Disorders: Anxiety, Depression Suicide Risk Score: 0 Integumentary History of Skin or Integumenta: Yes (h/o mrsa infection ) Blood Transfusions History of Blood Disorders: No Reviewed Nursing Assessment Reviewed/Agree w Nursing PMH: Yes Family Medical History Significant Family History: No Pertinent Family Hx Physical Exam Vital Signs Vital Sign - Last 12Hours 02/25/17 09:20 Temp 97.7 Pulse 99 Resp 18 B/P (MAP) 127/84 Pulse Ox 92 O2 Delivery Room Air Capillary Refill : Less Than 3 Seconds General Appearance: WD/WN, no apparent distress HEENT: PERRL/EOMI, pharynx normal, other (moderate bilateral nasal congestion with erythema and clear rhinorrhea.) Neck: full range of motion, supple Respiratory: no accessory muscle use, wheezing (bilateral), expiration ( expiratory) Cardiovascular: regular rate, rhythm, no murmur Gastrointestinal: non tender, soft Extremities: non-tender, normal inspection Neurologic/Psychiatric: alert, oriented x 3 Skin: normal color, warm/dry Progress/Results/Core Measures Results/Orders My Orders Orders - JEREMIAS HERNANDEZ MD Albuterol Pre-Mix Nebs (Rt) (Proventil P (02/25/17 09:29) Albuterol/Ipra Inhalation Soln (Duoneb I (02/25/17 09:30) Svn Sm Volume Nebulizer Rt-Rfs (02/25/17 09:29) Svn Sm Volume Nebulizer Rt-Rfs (02/25/17 09:29) Chest Pa/Lat (2 View) (02/25/17 09:40) Medications Given in ED Current Medications Medications Dose Ordered Sig/Bridgette Route Start Time Stop Time Status Last Admin Dose Admin Albuterol/ Ipratropium 3 ml ONCE ONCE INH 02/25/17 09:30 02/25/17 09:31 DC 02/25/17 09:49 3 ML Vital Signs/I&O Vital Sign - Last 12Hours 02/25/17 02/25/17 09:20 09:50 Temp 97.7 Pulse 99 Resp 18 B/P (MAP) 127/84 Pulse Ox 92 96 O2 Delivery Room Air Room Air Blood Pressure Mean: 98 Progress Note : Progress Note Seen and evaluated. Albuterol neb and duo neb ordered. Chest x-ray ordered. Monitor patient. 1140: Improved. No acute findings on x-ray. Discharged home with return precautions. Patient verbalize understanding instructions and agreement with plan. Diagnostic Imaging Diagonstic Imaging: Xray Plain Films/CT/US/NM/MRI: chest Comments NAME: CROW GARC[facility] REC#: [id number] PT STATUS: REG ER : 1975 PHYSICIAN: JEREMIAS HERNANDEZ MD ADMIT DATE: 02/25/17/ER Signed Date of Exam: 02/25/17 CHEST PA/LAT (2 VIEW) PA and lateral views of the chest. INDICATION: Difficulty breathing. FINDINGS: The lungs are clear. The heart size is normal. No effusion or pneumothorax The mediastinum and alexei appear unremarkable. There is an epidural thoracic pulse generator seen in the lower thoracic spine. IMPRESSION: No acute process. Dictated by: Dictated on workstation # [id number] Dict: 02/25/17 1037 Trans: 02/25/17 1111 Interpreted by: WILLIAM ASHFORD MD Electronically signed by: WILLIAM ASHFORD MD 02/25/17 1111 Departure Impression Impression: Primary Impression: Acute bronchitis Qualified Codes: J20.9 - Acute bronchitis, unspecified Disposition: 01 HOME, SELF-CARE Condition: Improved Departure-Patient Inst. Decision time for Depature: 11:42 Referrals: [facility] (PCP/Family) Primary Care Physician Patient Instructions: Acute Bronchitis, Adult (DC) Add. Discharge Instructions: All discharge instructions reviewed with patient and/or family. Voiced understanding. Take medications as directed. You may use your albuterol inhaler 2 puffs every 4 hours as needed for wheezing over the next few days. Keep your doctor's appointment as scheduled. Return for worse pain, fever, vomiting, weakness, breathing problems or other concerns as needed. Scripts Prednisone (Prednisone) 20 Mg Tab 40 MG PO DAILY, #10 TAB 0 Refills Prov: JEREMIAS HERNANDEZ MD 02/25/17 JEREMIAS HERNANDEZ MD Feb 25, 2017 10:17
--- NOTE | 2017-02-25 10:50 | Diagnostic Imaging Report ---
PA and lateral views of the chest. INDICATION: Difficulty breathing. FINDINGS: The lungs are clear. The heart size is normal. No effusion or pneumothorax The mediastinum and alexei appear unremarkable. There is an epidural thoracic pulse generator seen in the lower thoracic spine. IMPRESSION: No acute process. Dictated by: Dictated on workstation # [id number]
[2017-02-25] MEDS ORDERED: PRD20T PO (11:42)
[2017-02-25 11:49] VITALS: BP 127/84
== END 2017-02-25 11:48 | disposition home or self-care (01) ==
LOC: EDUNIT# 09:03 → ER 09:05
DX: J20.9 Acute bronchitis, unspecified (principal); F17.210 Nicotine dependence, cigarettes, uncomplicated; K21.9 Gastro-esophageal reflux disease without esophagitis; E03.9 Hypothyroidism, unspecified; E11.9 Type 2 diabetes mellitus without complications; F32.9 Major depressive disorder, single episode, unspecified; F41.9 Anxiety disorder, unspecified
CPT/HCPCS: 71020; 94640; 99282

== ENCOUNTER → 2017-04-10 | Outpatient (CLI) | payer MEDICAID ==
[~2017-04-10] VITALS: Ht 175.3 cm; Wt 121.6 kg
[~2017-04-10] MED LIST changes: +AZIT250T12 PO; -AZIT250T5 PO; +methylPREDNISolone 80 MG/ML (DEPO MEDROL) VIAL ONE
[2017-04-10 14:02] VITALS: BP 116/67
[2017-04-10 14:21] VITALS: BP 119/77
--- NOTE | 2017-04-14 06:30 | OPERATIVE REPORT ---
DATE OF SERVICE: 04/10/2017 DIAGNOSIS: Lumbar radiculopathy. PROCEDURE: Fluoroscopic-guided interlaminar epidural steroid injection. PROCEDURE IN DETAIL: After obtaining informed consent from the patient, the patient's chart was reviewed. The patient was then brought to the procedure room and placed in the prone position. A timeout was performed. The back was prepped with antiseptic solution and under fluoro guidance, the patient's lumbar spine was identified at the level of L5-S1. The L5-S1 vertebra was identified with fluoro guidance and approximately 2 mL of 1.5% lidocaine solution was used to anesthetize the skin directly down to the pedicle of the L5-S1 and under fluoroscopic guidance, the tract was anesthetized up to the interlaminar space and the ligamentum flavum. This needle was withdrawn. Then, a 20-gauge 3.5 inch Tuohy needle was then directed following the same tract that was anesthetized with the spinal needle. Using loss of resistance, the epidural space was identified and then the syringe was switched for contrast solution which was injected, approximately 1 mL. After secondary confirmation of epidural access, another syringe was placed and 80 mg of Depo-Medrol was injected. The Tuohy needle was then flushed out with approximately 2 mL of the normal saline used from the loss of resistance syringe. Band-Aids were applied to all the procedure sites. The patient tolerated the procedure well and was taken to the recovery room in stable condition. COMPLICATIONS: None. Job ID: [id number] DocumentID: [id number] Dictated Date: 04/13/2017 20:34:46 [employer] Date: 04/14/2017 01:10:31 Dictated By: EKATERINA MADSEN DO
== END ==
LOC: CARD 13:32
PROVIDERS: ATTEND Pain Medicine Interventional Pain Medicine
DX: M54.16 Radiculopathy, lumbar region (principal)
CPT/HCPCS: 62323

== ENCOUNTER → 2017-04-23 | Outpatient (CLI) | payer MEDICAID ==
[~2017-04-23] MED LIST changes: -methylPREDNISolone 80 MG/ML (DEPO MEDROL) VIAL ONE
== END ==
LOC: RAD 11:38
PROVIDERS: ATTEND Nurse Practitioner Family
DX: R55 Syncope and collapse (principal)
CPT/HCPCS: 93306

== ENCOUNTER 2017-05-10 20:10 | Emergency (ER) | payer MEDICAID ==
[~2017-05-10] VITALS: Ht 175.3 cm; Wt 118.8 kg
--- OUTSIDE RECORDS SUMMARY | 2017-05-10 20:16 | XMS REPORT | Clinical Summary ---
Author Author [facility] Organization [facility] Address Unknown Phone Unavailable Care Team Providers Care Security Officer Supervisor Name Role Phone PCP Unavailable Source Comments Some departments are not documenting in the electronic medical record. If you do not see the information that you expected, contact Release of Information in the Health Information Management department at [phone] for further assistance in locating additional records.[facility] Allergies Not on File Current [...]
--- OUTSIDE RECORDS SUMMARY | 2017-05-10 20:24 | XMS REPORT | Continuity of Care Document ---
Author Author [facility]ly [facility] Address Unknown Phone Unavailable Allergies Active Description Code Type Severity Reaction Onset Reported/Identified Relationship to Patient Clinical Status Yes acetaminophen [id number] Drug Allergy Unknown N/A 07/17/2006 Yes Tylenol Drug Allergy 09/02/2011 Yes Tylenol Drug Allergy N/A N/A 09/02/2011 Yes fentanyl 50 mcg/hr Patch 72 hr Drug Allergy N/A N/A 10/13/2012 Yes fentanyl [id number] Drug Allergy Unknown N/A 11/19/2013 Yes acetaminophen [id number] Drug Allergy Mild N/V, CAN TAKE P 07/28/2014 Yes methocarbamol [id number] Drug Allergy Unknown N/A 10/13/2015 Medications There is no data. Problems Date Dx Coded Attending Type Code Diagnosis Diagnosed By 10/02/2011 CHRISTIANO CARRERA PSYD 296.33 MO DEPRESSIVE RECURRENT SEVERE W/O PSYCHOTIC BEHAVIOR 10/02/2011 CHRISTIANO CARRERA PSYD 301.83 PD BORDERLINE 10/02/2011 296.33 MO DEPRESSIVE RECURRENT SEVERE W/O PSYCHOTIC BEHAVIOR 10/02/2011 301.83 PD BORDERLINE 10/02/2011 BON PORTER DO 296.33 MO DEPRESSIVE RECURRENT SEVERE W/O PSYCHOTIC BEHAVIOR 10/02/2011 BON PORTER DO 301.83 PD BORDERLINE 10/02/2011 BON PORTER DO 296.33 MO DEPRESSIVE RECURRENT SEVERE W/O PSYCHOTIC BEHAVIOR 10/02/2011 BON PORTER DO 301.83 PD BORDERLINE 10/02/2011 CHRISTIANO CARRERA PSYD 296.33 MO DEPRESSIVE RECURRENT SEVERE W/O PSYCHOTIC BEHAVIOR 10/02/2011 CHRISTIANO CARRERA PSYD 301.83 PD BORDERLINE 10/02/2011 296.33 MO DEPRESSIVE RECURRENT SEVERE W/O PSYCHOTIC BEHAVIOR 10/02/2011 301.83 PD BORDERLINE 10/02/2011 296.33 MO DEPRESSIVE RECURRENT SEVERE W/O PSYCHOTIC BEHAVIOR 10/02/2011 301.83 PD BORDERLINE 10/02/2011 296.33 MO DEPRESSIVE RECURRENT SEVERE W/O PSYCHOTIC BEHAVIOR 10/02/2011 301.83 PD BORDERLINE 10/02/2011 296.33 MO DEPRESSIVE RECURRENT SEVERE W/O PSYCHOTIC BEHAVIOR 10/02/2011 301.83 PD BORDERLINE 10/02/2011 296.33 MO DEPRESSIVE RECURRENT SEVERE W/O PSYCHOTIC BEHAVIOR 10/02/2011 301.83 PD BORDERLINE 10/02/2011 296.33 MO DEPRESSIVE RECURRENT SEVERE W/O PSYCHOTIC BEHAVIOR 10/02/2011 301.83 PD BORDERLINE 10/02/2011 296.33 MO DEPRESSIVE RECURRENT SEVERE W/O PSYCHOTIC BEHAVIOR 10/02/2011 301.83 PD BORDERLINE 10/02/2011 296.33 MO DEPRESSIVE RECURRENT SEVERE W/O PSYCHOTIC BEHAVIOR 10/02/2011 301.83 PD BORDERLINE 10/02/2011 296.33 MO DEPRESSIVE RECURRENT SEVERE W/O PSYCHOTIC BEHAVIOR 10/02/2011 301.83 PD BORDERLINE 10/02/2011 LIZ JOAQUIN RUBEN WILNER 296.33 MO DEPRESSIVE RECURRENT SEVERE W/O PSYCHOTIC BEHAVIOR 10/02/2011 LIZ JOAQUIN RUBEN WILNER 301.83 PD BORDERLINE 10/02/2011 HEMA CUTLER MD 296.33 MO DEPRESSIVE RECURRENT SEVERE W/O PSYCHOTIC BEHAVIOR 10/02/2011 HEMA CUTLER MD 301.83 PD BORDERLINE 10/02/2011 CHRISTIANO CARRERA PSYD 296.33 MO DEPRESSIVE RECURRENT SEVERE W/O PSYCHOTIC BEHAVIOR 10/02/2011 CHRISTIANO CARRERA PSYD 301.83 PD BORDERLINE 10/02/2011 LIZ JOAQUIN RUBEN WILNER 296.33 MO DEPRESSIVE RECURRENT SEVERE W/O PSYCHOTIC BEHAVIOR 10/02/2011 RUBEN HILL APRN 301.83 PD BORDERLINE 10/02/2011 MEGAN MENCHACA APRN 296.33 MO DEPRESSIVE RECURRENT SEVERE W/O PSYCHOTIC BEHAVIOR 10/02/2011 MEGAN MENCHACA APRN 301.83 PD BORDERLINE 10/02/2011 CHRISTIANO CARRERA PSYD 296.33 MO DEPRESSIVE RECURRENT SEVERE W/O PSYCHOTIC BEHAVIOR 10/02/2011 CHRISTIANO CARRERA PSYD 301.83 PD BORDERLINE 10/02/2011 HEMA CUTLER MD 296.33 MO DEPRESSIVE RECURRENT SEVERE W/O PSYCHOTIC BEHAVIOR 10/02/2011 OMAYRA MD, HEMA M 301.83 PD BORDERLINE 10/02/2011 RUBEN HILL APRN 296.33 MO DEPRESSIVE RECURRENT SEVERE W/O PSYCHOTIC BEHAVIOR 10/02/2011 RUBEN HILL APRN 301.83 PD BORDERLINE 10/02/2011 MADL GENERATION ENGINEER, RICARDO L 296.33 MO DEPRESSIVE RECURRENT SEVERE W/O PSYCHOTIC BEHAVIOR 10/02/2011 MADL GENERATION ENGINEER, RICARDO L 301.83 PD BORDERLINE 10/02/2011 MADL GENERATION ENGINEER, RICARDO L 296.33 MO DEPRESSIVE RECURRENT SEVERE W/O PSYCHOTIC BEHAVIOR 10/02/2011 MADL GENERATION ENGINEER, RICARDO L 301.83 PD BORDERLINE 10/02/2011 MADL GENERATION ENGINEER, RICARDO L 296.33 MO DEPRESSIVE RECURRENT SEVERE W/O PSYCHOTIC BEHAVIOR 10/02/2011 MADL GENERATION ENGINEER, RICARDO L 301.83 PD BORDERLINE 10/02/2011 MADL GENERATION ENGINEER, RICARDO L 296.33 MO DEPRESSIVE RECURRENT SEVERE W/O PSYCHOTIC BEHAVIOR 10/02/2011 MADL GENERATION ENGINEER, RICARDO L 301.83 PD BORDERLINE 10/02/2011 MADL GENERATION ENGINEER, RICARDO L 296.33 MO DEPRESSIVE RECURRENT SEVERE W/O PSYCHOTIC BEHAVIOR 10/02/2011 MADL GENERATION ENGINEER, RICARDO L 301.83 PD BORDERLINE 10/02/2011 MADL GENERATION ENGINEER, RICARDO L 296.33 MO DEPRESSIVE RECURRENT SEVERE W/O PSYCHOTIC BEHAVIOR 10/02/2011 MADL GENERATION ENGINEER, RICARDO L 301.83 PD BORDERLINE 10/02/2011 CHRISTIANO CARRERA PSYD L 296.33 MO DEPRESSIVE RECURRENT SEVERE W/O PSYCHOTIC BEHAVIOR 10/02/2011 CHRISTIANO CARRERA PSYD ANN L 301.83 PD BORDERLINE 10/02/2011 MADL GENERATION ENGINEER, RICARDO L 296.33 MO DEPRESSIVE RECURRENT SEVERE W/O PSYCHOTIC BEHAVIOR 10/02/2011 MADL GENERATION ENGINEER, RICARDO L 301.83 PD BORDERLINE 10/02/2011 MADL GENERATION ENGINEER, RICARDO L 296.33 MO DEPRESSIVE RECURRENT SEVERE W/O PSYCHOTIC BEHAVIOR 10/02/2011 MADL GENERATION ENGINEER, RICARDO L 301.83 PD BORDERLINE 10/02/2011 PORTER DO BON K 296.33 MO DEPRESSIVE RECURRENT SEVERE W/O PSYCHOTIC BEHAVIOR 10/02/2011 PORTER DO BON K 301.83 PD BORDERLINE 10/02/2011 CHRISTIANO CARRERA PSYD L 296.33 MO DEPRESSIVE RECURRENT SEVERE W/O PSYCHOTIC BEHAVIOR 10/02/2011 CHRISTIANO CARRERA PSYD L 301.83 PD BORDERLINE 10/02/2011 MADL GENERATION ENGINEER, RICARDO L 296.33 MO DEPRESSIVE RECURRENT SEVERE W/O PSYCHOTIC BEHAVIOR 10/02/2011 MADL GENERATION ENGINEER, RICARDO L 301.83 PD BORDERLINE 10/02/2011 MADL GENERATION ENGINEER, RICARDO L 296.33 MO DEPRESSIVE RECURRENT SEVERE W/O PSYCHOTIC BEHAVIOR 10/02/2011 MADL GENERATION ENGINEER, RICARDO L 301.83 PD BORDERLINE 10/02/2011 MADL GENERATION ENGINEER, RICARDO L 296.33 MO DEPRESSIVE RECURRENT SEVERE W/O PSYCHOTIC BEHAVIOR 10/02/2011 MADL GENERATION ENGINEER, RICARDO L 301.83 PD BORDERLINE 10/02/2011 CHRISTIANO CARRERA PSYD L 296.33 MO DEPRESSIVE RECURRENT SEVERE W/O PSYCHOTIC BEHAVIOR 10/02/2011 CHRISTIANO CARRERA PSYD L 301.83 PD BORDERLINE 10/02/2011 MADL GENERATION ENGINEER, RICARDO L 296.33 MO DEPRESSIVE RECURRENT SEVERE W/O PSYCHOTIC BEHAVIOR 10/02/2011 MADL GENERATION ENGINEER, RICARDO L 301.83 PD BORDERLINE 10/02/2011 MADL GENERATION ENGINEER, RICARDO L 296.33 MO DEPRESSIVE RECURRENT SEVERE W/O PSYCHOTIC BEHAVIOR 10/02/2011 MADL GENERATION ENGINEER, RICARDO L 301.83 PD BORDERLINE 10/02/2011 MADL GENERATION ENGINEER, RICARDO L 296.33 MO DEPRESSIVE RECURRENT SEVERE W/O PSYCHOTIC BEHAVIOR 10/02/2011 MADL GENERATION ENGINEER, RICARDO L 301.83 PD BORDERLINE 10/02/2011 PORTER DO BON K 296.33 MO DEPRESSIVE RECURRENT SEVERE W/O PSYCHOTIC BEHAVIOR 10/02/2011 PORTER DO BON K 301.83 PD BORDERLINE 10/02/2011 MADL GENERATION ENGINEER, RICARDO L 296.33 MO DEPRESSIVE RECURRENT SEVERE W/O PSYCHOTIC BEHAVIOR 10/02/2011 MADL GENERATION ENGINEER, RICARDO L 301.83 PD BORDERLINE 10/02/2011 CHRISTIANO CARRERA PSYD L 296.33 MO DEPRESSIVE RECURRENT SEVERE W/O PSYCHOTIC BEHAVIOR 10/02/2011 CHRISTIANO CARRERA PSYD 301.83 PD BORDERLINE 10/02/2011 CHRISTIANO CARRERA PSYD L 296.33 MO DEPRESSIVE RECURRENT SEVERE W/O PSYCHOTIC BEHAVIOR 10/02/2011 CHRISTIANO CARRERA PSYD L 301.83 PD BORDERLINE 11/14/2011 CHRISTIANO CARRERA PSYD L 296.32 MO DEPRESSIVE RECURRENT MODERATE 11/14/2011 CHRISTIANO CARRERA PSYD L 301.9 PD PERS DIS NOS 11/14/2011 296.32 MO DEPRESSIVE RECURRENT MODERATE 11/14/2011 301.9 PD PERS DIS NOS 11/14/2011 PORTER DO, BON K 296.32 MO DEPRESSIVE RECURRENT MODERATE 11/14/2011 PORTER DO, BON K 301.9 PD PERS DIS NOS 11/14/2011 PORTER DO, BON K 296.32 MO DEPRESSIVE RECURRENT MODERATE 11/14/2011 PORTER DO, BON K 301.9 PD PERS DIS NOS 11/14/2011 CHRISTIANO CARRERA PSYD L 296.32 MO DEPRESSIVE RECURRENT MODERATE 11/14/2011 CHRISTIANO CARRERA PSYD L 301.9 PD PERS DIS NOS 11/14/2011 296.32 MO DEPRESSIVE RECURRENT MODERATE 11/14/2011 301.9 PD PERS DIS NOS 11/14/2011 296.32 MO DEPRESSIVE RECURRENT MODERATE 11/14/2011 301.9 PD PERS DIS NOS 11/14/2011 296.32 MO DEPRESSIVE RECURRENT MODERATE 11/14/2011 301.9 PD PERS DIS NOS 11/14/2011 296.32 MO DEPRESSIVE RECURRENT MODERATE 11/14/2011 301.9 PD PERS DIS NOS 11/14/2011 296.32 MO DEPRESSIVE RECURRENT MODERATE 11/14/2011 301.9 PD PERS DIS NOS 11/14/2011 296.32 MO DEPRESSIVE RECURRENT MODERATE 11/14/2011 301.9 PD PERS DIS NOS 11/14/2011 296.32 MO DEPRESSIVE RECURRENT MODERATE 11/14/2011 301.9 PD PERS DIS NOS 11/14/2011 296.32 MAJOR DEPRESSION RECURRENT MODERATE 11/14/2011 301.9 PD PERS DIS NOS 11/14/2011 296.32 MAJOR DEPRESSION RECURRENT MODERATE 11/14/2011 301.9 PD PERS DIS NOS 11/14/2011 RUBEN HILL APRN 296.32 MAJOR DEPRESSION RECURRENT MODERATE 11/14/2011 RUBEN HILL APRN 301.9 PD PERS DIS NOS 11/14/2011 HEMA CUTLER MD 296.32 MAJOR DEPRESSION RECURRENT MODERATE 11/14/2011 HEMA CUTLER MD 301.9 PD PERS DIS NOS 11/14/2011 CHRISTIANO CARRERA PSYD ANN L 296.32 MAJOR DEPRESSION RECURRENT MODERATE 11/14/2011 CHRISTIANO CARRERA PSYD ANN L 301.9 PD PERS DIS NOS 11/14/2011 LIZ JOAQUIN RUBEN DARBY 296.32 MAJOR DEPRESSION RECURRENT MODERATE 11/14/2011 LIZ JOAQUIN RUBEN DARBY 301.9 PD PERS DIS NOS 11/14/2011 NIKOLAI JOAQUIN MEGAN T 296.32 MAJOR DEPRESSION RECURRENT MODERATE 11/14/2011 NIKOLAI JOAQUIN MEGAN T 301.9 PD PERS DIS NOS 11/14/2011 CHRISTIANO CARRERA PSYD ANN L 296.32 MAJOR DEPRESSION RECURRENT MODERATE 11/14/2011 CHRISTIANO CARRERA PSYD ANN L 301.9 PD PERS DIS NOS 11/14/2011 HEMA CUTLER MD 296.32 MAJOR DEPRESSION RECURRENT MODERATE 11/14/2011 HEMA CUTLER MD 301.9 PD PERS DIS NOS 11/14/2011 LIZ JOAQUIN RUBEN DARBY 296.32 MAJOR DEPRESSION RECURRENT MODERATE 11/14/2011 LIZ JOAQUIN RUBEN DARBY 301.9 PD PERS DIS NOS 11/14/2011 KEN GENERATION ENGINEER, RICARDO L 296.32 MAJOR DEPRESSION RECURRENT MODERATE 11/14/2011 SONYAL GENERATION ENGINEER, RICARDO L 301.9 PD PERS DIS NOS 11/14/2011 KEN GENERATION ENGINEER, RICARDO L 296.32 MAJOR DEPRESSION RECURRENT MODERATE 11/14/2011 MADL GENERATION ENGINEER, RICARDO L 301.9 PD PERS DIS NOS 11/14/2011 MADL GENERATION ENGINEER, RICARDO L 296.32 MAJOR DEPRESSION RECURRENT MODERATE 11/14/2011 MADL GENERATION ENGINEER, RICARDO L 301.9 PD PERS DIS NOS 11/14/2011 MADL GENERATION ENGINEER, RICARDO L 296.32 MAJOR DEPRESSION RECURRENT MODERATE 11/14/2011 MADL GENERATION ENGINEER, RICARDO L 301.9 PD PERS DIS NOS 11/14/2011 MADL GENERATION ENGINEER, RICARDO L 296.32 MAJOR DEPRESSION RECURRENT MODERATE 11/14/2011 MADL GENERATION ENGINEER, RICARDO L 301.9 PD PERS DIS NOS 11/14/2011 MADL GENERATION ENGINEER, RICARDO L 296.32 MAJOR DEPRESSION RECURRENT MODERATE 11/14/2011 MADL GENERATION ENGINEER, RICARDO L 301.9 PD PERS DIS NOS 11/14/2011 CHRISTIANO CARRERA PSYD ANN L 296.32 MAJOR DEPRESSION RECURRENT MODERATE 11/14/2011 CHRISTIANO CARRERA PSYD ANN L 301.9 PD PERS DIS NOS 11/14/2011 MADL GENERATION ENGINEER, RICARDO L 296.32 MAJOR DEPRESSION RECURRENT MODERATE 11/14/2011 MADL GENERATION ENGINEER, RICARDO L 301.9 PD PERS DIS NOS 11/14/2011 MADL GENERATION ENGINEER, RICARDO L 296.32 MAJOR DEPRESSION RECURRENT MODERATE 11/14/2011 MADL GENERATION ENGINEER, RICARDO L 301.9 PD PERS DIS NOS 11/14/2011 PORTER DO, BON K 296.32 MAJOR DEPRESSION RECURRENT MODERATE 11/14/2011 PORTER DO, BON K 301.9 PD PERS DIS NOS 11/14/2011 CHRISTIANO CARRERA PSYD L 296.32 MAJOR DEPRESSION RECURRENT MODERATE 11/14/2011 CHRISTIANO CARRERA PSYD L 301.9 PD PERS DIS NOS 11/14/2011 MADL GENERATION ENGINEER, RICARDO L 296.32 MAJOR DEPRESSION RECURRENT MODERATE 11/14/2011 MADL GENERATION ENGINEER, RICARDO L 301.9 PD PERS DIS NOS 11/14/2011 MADL GENERATION ENGINEER, RICARDO L 296.32 MAJOR DEPRESSION RECURRENT MODERATE 11/14/2011 MADL GENERATION ENGINEER, RICARDO L 301.9 PD PERS DIS NOS 11/14/2011 MADL GENERATION ENGINEER, RICARDO L 296.32 MAJOR DEPRESSION RECURRENT MODERATE 11/14/2011 MADL GENERATION ENGINEER, RICARDO L 301.9 PD PERS DIS NOS 11/14/2011 CHRISTIANO CARRERA PSYD L 296.32 MAJOR DEPRESSION RECURRENT MODERATE 11/14/2011 CHRISTIANO CARRERA PSYD ANN L 301.9 PD PERS DIS NOS 11/14/2011 MADL GENERATION ENGINEER, RICARDO L 296.32 MAJOR DEPRESSION RECURRENT MODERATE 11/14/2011 MADL GENERATION ENGINEER, RICARDO L 301.9 PD PERS DIS NOS 11/14/2011 MADL GENERATION ENGINEER, RICARDO L 296.32 MAJOR DEPRESSION RECURRENT MODERATE 11/14/2011 MADL GENERATION ENGINEER, RICARDO L 301.9 PD PERS DIS NOS 11/14/2011 MADL GENERATION ENGINEER, RICARDO L 296.32 MAJOR DEPRESSION RECURRENT MODERATE 11/14/2011 MADL GENERATION ENGINEER, RICARDO L 301.9 PD PERS DIS NOS 11/14/2011 BON PORTER DO K 296.32 MAJOR DEPRESSION RECURRENT MODERATE 11/14/2011 BON PORTER DO K 301.9 PD PERS DIS NOS 11/14/2011 MADL GENERATION ENGINEER, RICARDO L 296.32 MAJOR DEPRESSION RECURRENT MODERATE 11/14/2011 MADL GENERATION ENGINEER, RICARDO L 301.9 PD PERS DIS NOS 11/14/2011 CHRISTIANO CARRERA PSYD L 296.32 MAJOR DEPRESSION RECURRENT MODERATE 11/14/2011 CHRISTIANO CARRERA PSYD L 301.9 PD PERS DIS NOS 11/14/2011 CHRISTIANO CARRERA PSYD L 296.32 MO DEPRESSIVE RECURRENT MODERATE 11/14/2011 CHRISTIANO ACRRERA PSYD L 301.9 PD PERS DIS NOS 11/21/2011 CHRISTIANO CARRERA PSYD L 300.01 AN PANIC DIS W/O AGORA 11/21/2011 300.01 AN PANIC DIS W/O AGORA 11/21/2011 BON PORTER DO 300.01 AN PANIC DIS W/O AGORA 11/21/2011 BON PORTER DO 300.01 AN PANIC DIS W/O AGORA 11/21/2011 CHRISTIANO CARRERA PSYD L 300.01 AN PANIC DIS W/O AGORA 11/21/2011 300.01 AN PANIC DIS W/O AGORA 11/21/2011 300.01 AN PANIC DIS W/O AGORA 11/21/2011 300.01 AN PANIC DIS W/O AGORA 11/21/2011 300.01 AN PANIC DIS W/O AGORA 11/21/2011 300.01 AN PANIC DIS W/O AGORA 11/21/2011 300.01 AN PANIC DIS W/O AGORA 11/21/2011 300.01 AN PANIC DIS W/O AGORA 11/21/2011 300.01 AN PANIC DIS W/O AGORA 11/21/2011 300.01 AN PANIC DIS W/O AGORA 11/21/2011 LIZ KUMARNRUBEN 300.01 AN PANIC DIS W/O AGORA 11/21/2011 HEMA CUTLER MD 300.01 AN PANIC DIS W/O AGORA 11/21/2011 CHRISTIANO CARRERA PSYD L 300.01 AN PANIC DIS W/O AGORA 11/21/2011 LIZ KUMARNRUBEN 300.01 AN PANIC DIS W/O AGORA 11/21/2011 MEGAN MENCHACA APRN 300.01 AN PANIC DIS W/O AGORA 11/21/2011 CHRISTIANO CARRERA PSYD L 300.01 AN PANIC DIS W/O AGORA 11/21/2011 HEMA CUTLER MD 300.01 AN PANIC DIS W/O AGORA 11/21/2011 LIZ KUMARRen RUBEN DARBY 300.01 AN PANIC DIS W/O AGORA 11/21/2011 MADL GENERATION ENGINEER, RICARDO L 300.01 AN PANIC DIS W/O AGORA 11/21/2011 MADL GENERATION ENGINEER, RICARDO L 300.01 AN PANIC DIS W/O AGORA 11/21/2011 MADL GENERATION ENGINEER, RICARDO L 300.01 AN PANIC DIS W/O AGORA 11/21/2011 MADL GENERATION ENGINEER, RICARDO L 300.01 AN PANIC DIS W/O AGORA 11/21/2011 MADL GENERATION ENGINEER, RICARDO L 300.01 AN PANIC DIS W/O AGORA 11/21/2011 MADL GENERATION ENGINEER, RICARDO L 300.01 AN PANIC DIS W/O AGORA 11/21/2011 CHRISTIANO CARRERA PSYD L 300.01 AN PANIC DIS W/O AGORA 11/21/2011 MADL GENERATION ENGINEER, RICARDO L 300.01 AN PANIC DIS W/O AGORA 11/21/2011 MADL GENERATION ENGINEER, RICARDO L 300.01 AN PANIC DIS W/O AGORA 11/21/2011 BON PORTER DO 300.01 AN PANIC DIS W/O AGORA 11/21/2011 CHRISTIANO CARRERA PSYD L 300.01 AN PANIC DIS W/O AGORA 11/21/2011 MADL GENERATION ENGINEER, RICARDO L 300.01 AN PANIC DIS W/O AGORA 11/21/2011 MADL GENERATION ENGINEER, RICARDO L 300.01 AN PANIC DIS W/O AGORA 11/21/2011 MADL GENERATION ENGINEER, RICARDO L 300.01 AN PANIC DIS W/O AGORA 11/21/2011 CHRISTIANO CARRERA PSYD L 300.01 AN PANIC DIS W/O AGORA 11/21/2011 MADL GENERATION ENGINEER, RICARDO L 300.01 AN PANIC DIS W/O AGORA 11/21/2011 MADL GENERATION ENGINEER, RICARDO L 300.01 AN PANIC DIS W/O AGORA 11/21/2011 MADL GENERATION ENGINEER, RICARDO L 300.01 AN PANIC DIS W/O AGORA 11/21/2011 BON PORTER DO 300.01 AN PANIC DIS W/O AGORA 11/21/2011 MADL GENERATION ENGINEER, RICARDO L 300.01 AN PANIC DIS W/O AGORA 11/21/2011 CHRISTIANO CARRERA PSYD L 300.01 AN PANIC DIS W/O AGORA 11/21/2011 CHRISTIANO CARRERA PSYD 300.01 AN PANIC DIS W/O AGORA 01/13/2012 Ot 719.45 JOINT PAIN- PELVIS 01/13/2012 Ot 720.2 SACROILIITIS NEC 01/13/2012 Ot 724.2 LUMBAGO 01/13/2012 Ot 724.3 SCIATICA 02/10/2012 CHRISTIANO CARRERA PSYD 300.02 AN GEN ANXIETY 02/10/2012 300.02 AN GEN ANXIETY 02/10/2012 BON PORTER DO 300.02 AN GEN ANXIETY 02/10/2012 BON PORTER DO 300.02 AN GEN ANXIETY 02/10/2012 CHRISTIANO CARRERA PSYD 300.02 AN GEN ANXIETY 02/10/2012 300.02 AN GEN ANXIETY 02/10/2012 300.02 AN GEN ANXIETY 02/10/2012 300.02 AN GEN ANXIETY 02/10/2012 300.02 AN GEN ANXIETY 02/10/2012 300.02 AN GEN ANXIETY 02/10/2012 300.02 AN GEN ANXIETY 02/10/2012 300.02 AN GEN ANXIETY 02/10/2012 300.02 AN GEN ANXIETY 02/10/2012 300.02 AN GEN ANXIETY 02/10/2012 RUBEN HILL APRN 300.02 AN GEN ANXIETY 02/10/2012 HEMA CUTLER MD 300.02 AN GEN ANXIETY 02/10/2012 CHRISTIANO CARRERA PSYD L 300.02 AN GEN ANXIETY 02/10/2012 RUBEN HILL APRN 300.02 AN GEN ANXIETY 02/10/2012 MEGAN MENCHACA APRN 300.02 AN GEN ANXIETY 02/10/2012 CHRISTIANO CARRERA PSYD L 300.02 AN GEN ANXIETY 02/10/2012 HEMA CUTLER MD 300.02 AN GEN ANXIETY 02/10/2012 RUBEN HILL APRN 300.02 AN GEN ANXIETY 02/10/2012 MADL GENERATION ENGINEER, RICARDO L 300.02 AN GEN ANXIETY 02/10/2012 MADL GENERATION ENGINEER, RICARDO L 300.02 AN GEN ANXIETY 02/10/2012 MADL GENERATION ENGINEER, RICARDO L 300.02 AN GEN ANXIETY 02/10/2012 MADL GENERATION ENGINEER, RICARDO L 300.02 AN GEN ANXIETY 02/10/2012 MADL GENERATION ENGINEER, RICARDO L 300.02 AN GEN ANXIETY 02/10/2012 MADL GENERATION ENGINEER, RICARDO L 300.02 AN GEN ANXIETY 02/10/2012 CHRISTIANO CARRERA PSYD L 300.02 AN GEN ANXIETY 02/10/2012 MADL GENERATION ENGINEER, RICARDO L 300.02 AN GEN ANXIETY 02/10/2012 MADL GENERATION ENGINEER, RICARDO L 300.02 AN GEN ANXIETY 02/10/2012 BON PORTER DO 300.02 AN GEN ANXIETY 02/10/2012 CHRISTIANO CARRERA PSYD L 300.02 AN GEN ANXIETY 02/10/2012 MADL GENERATION ENGINEER, RICARDO L 300.02 AN GEN ANXIETY 02/10/2012 MADL GENERATION ENGINEER, RICARDO L 300.02 AN GEN ANXIETY 02/10/2012 MADL GENERATION ENGINEER, RICARDO L 300.02 AN GEN ANXIETY 02/10/2012 CHRISTIANO CARRERA PSYD L 300.02 AN GEN ANXIETY 02/10/2012 MADL GENERATION ENGINEER, RICARDO L 300.02 AN GEN ANXIETY 02/10/2012 MADL GENERATION ENGINEER, RICARDO L 300.02 AN GEN ANXIETY 02/10/2012 KEN JOAQUIN, RICARDO L 300.02 AN GEN ANXIETY 02/10/2012 PORTER BON RUSHING K 300.02 AN GEN ANXIETY 02/10/2012 KEN JOAQUIN, RICARDO L 300.02 AN GEN ANXIETY 02/10/2012 CHRISTIANO CARRERA PSYD L 300.02 AN GEN ANXIETY 02/10/2012 CHRISTIANO CARRERA PSYD L 300.02 AN GEN ANXIETY 03/05/2012 CHRISTIANO CARRERA PSYD L 682.6 CELLULITIS AND ABSCESS OF LEG EXCEPT FOOT 03/05/2012 682.6 CELLULITIS AND ABSCESS OF LEG EXCEPT FOOT 03/05/2012 BON PORTER DO 682.6 CELLULITIS AND ABSCESS OF LEG EXCEPT FOOT 03/05/2012 BON PORTER DO 682.6 CELLULITIS AND ABSCESS OF LEG EXCEPT FOOT 03/05/2012 CHRISTIANO CARRERA PSYD L 682.6 CELLULITIS AND ABSCESS OF LEG EXCEPT FOOT 03/05/2012 682.6 CELLULITIS AND ABSCESS OF LEG EXCEPT FOOT 03/05/2012 682.6 CELLULITIS AND ABSCESS OF LEG EXCEPT FOOT 03/05/2012 682.6 CELLULITIS AND ABSCESS OF LEG EXCEPT FOOT 03/05/2012 682.6 CELLULITIS AND ABSCESS OF LEG EXCEPT FOOT 03/05/2012 682.6 CELLULITIS AND ABSCESS OF LEG EXCEPT FOOT 03/05/2012 682.6 CELLULITIS AND ABSCESS OF LEG EXCEPT FOOT 03/05/2012 682.6 CELLULITIS AND ABSCESS OF LEG EXCEPT FOOT 03/05/2012 682.6 CELLULITIS AND ABSCESS OF LEG EXCEPT FOOT 03/05/2012 682.6 CELLULITIS AND ABSCESS OF LEG EXCEPT FOOT 03/05/2012 RUBEN HILL APRN 682.6 CELLULITIS AND ABSCESS OF LEG EXCEPT FOOT 03/05/2012 HEMA CUTLER MD 682.6 CELLULITIS AND ABSCESS OF LEG EXCEPT FOOT 03/05/2012 CHRISTIANO CARREAR PSYD 682.6 CELLULITIS AND ABSCESS OF LEG EXCEPT FOOT 03/05/2012 RUBEN HILL APRN 682.6 CELLULITIS AND ABSCESS OF LEG EXCEPT FOOT 03/05/2012 MEGAN MENCHACA APRN 682.6 CELLULITIS AND ABSCESS OF LEG EXCEPT FOOT 03/05/2012 CHRISTIANO CARRERA PSYD L 682.6 CELLULITIS AND ABSCESS OF LEG EXCEPT FOOT 03/05/2012 HEMA CUTLER MD 682.6 CELLULITIS AND ABSCESS OF LEG EXCEPT FOOT 03/05/2012 RUBEN HILL APRN 682.6 CELLULITIS AND ABSCESS OF LEG EXCEPT FOOT 03/05/2012 MADL GENERATION ENGINEER, RICARDO L 682.6 CELLULITIS AND ABSCESS OF LEG EXCEPT FOOT 03/05/2012 MADL GENERATION ENGINEER, RICARDO L 682.6 CELLULITIS AND ABSCESS OF LEG EXCEPT FOOT 03/05/2012 MADL GENERATION ENGINEER, RICARDO L 682.6 CELLULITIS AND ABSCESS OF LEG EXCEPT FOOT 03/05/2012 MADL GENERATION ENGINEER, RICARDO L 682.6 CELLULITIS AND ABSCESS OF LEG EXCEPT FOOT 03/05/2012 MADL GENERATION ENGINEER, RICARDO L 682.6 CELLULITIS AND ABSCESS OF LEG EXCEPT FOOT 03/05/2012 MADL GENERATION ENGINEER, RICARDO L 682.6 CELLULITIS AND ABSCESS OF LEG EXCEPT FOOT 03/05/2012 CHRISTIANO CARRERA PSYD L 682.6 CELLULITIS AND ABSCESS OF LEG EXCEPT FOOT 03/05/2012 MADL GENERATION ENGINEER, RICARDO L 682.6 CELLULITIS AND ABSCESS OF LEG EXCEPT FOOT 03/05/2012 MADL GENERATION ENGINEER, RICARDO L 682.6 CELLULITIS AND ABSCESS OF LEG EXCEPT FOOT 03/05/2012 BON PORTER DO 682.6 CELLULITIS AND ABSCESS OF LEG EXCEPT FOOT 03/05/2012 CHRISTIANO CARRERA PSYD L 682.6 CELLULITIS AND ABSCESS OF LEG EXCEPT FOOT 03/05/2012 MADL GENERATION ENGINEER, RICARDO L 682.6 CELLULITIS AND ABSCESS OF LEG EXCEPT FOOT 03/05/2012 MADL GENERATION ENGINEER, RICARDO L 682.6 CELLULITIS AND ABSCESS OF LEG EXCEPT FOOT 03/05/2012 MADL GENERATION ENGINEER, RICARDO L 682.6 CELLULITIS AND ABSCESS OF LEG EXCEPT FOOT 03/05/2012 CHRISTIANO CARRERA PSYD L 682.6 CELLULITIS AND ABSCESS OF LEG EXCEPT FOOT 03/05/2012 MADL GENERATION ENGINEER, RICARDO L 682.6 CELLULITIS AND ABSCESS OF LEG EXCEPT FOOT 03/05/2012 MADL GENERATION ENGINEER, RICARDO L 682.6 CELLULITIS AND ABSCESS OF LEG EXCEPT FOOT 03/05/2012 MADL GENERATION ENGINEER, RICARDO L 682.6 CELLULITIS AND ABSCESS OF LEG EXCEPT FOOT 03/05/2012 PORTER DO, BON K 682.6 CELLULITIS AND ABSCESS OF LEG EXCEPT FOOT 03/05/2012 MADL GENERATION ENGINEER, RICARDO L 682.6 CELLULITIS AND ABSCESS OF LEG EXCEPT FOOT 03/05/2012 CHRISITANO CARRERA PSYD L 682.6 CELLULITIS AND ABSCESS OF LEG EXCEPT FOOT 03/05/2012 CHRISTIANO CARRERA PSYD L 682.6 CELLULITIS AND ABSCESS OF LEG EXCEPT FOOT 03/24/2012 CHRISTIANO CARRERA PSYD L 244.9 HYPOTHYROIDISM 03/24/2012 CHRISTIANO CARRERA PSYD L 268.9 VITAMIN D DEFICIENCY 03/24/2012 CHRISTIANO CARRERA PSYD L 716.90 ARTHRITIS/ ARTHROPATHY, UNSPECIFIED 03/24/2012 244.9 HYPOTHYROIDISM 03/24/2012 268.9 VITAMIN D DEFICIENCY 03/24/2012 716.90 ARTHRITIS/ ARTHROPATHY, UNSPECIFIED 03/24/2012 PORTER DO, BON K 244.9 HYPOTHYROIDISM 03/24/2012 PORTER DO, BON K 268.9 VITAMIN D DEFICIENCY 03/24/2012 PORTER DO, BON K 716.90 ARTHRITIS/ ARTHROPATHY, UNSPECIFIED 03/24/2012 PORTER DO, BON K 244.9 HYPOTHYROIDISM 03/24/2012 PORTER DO, BON K 268.9 VITAMIN D DEFICIENCY 03/24/2012 PORTER DO, BON K 716.90 ARTHRITIS/ ARTHROPATHY, UNSPECIFIED 03/24/2012 CHRISTIANO CARRERA PSYD L 244.9 HYPOTHYROIDISM 03/24/2012 CHRISTIANO CARRERA PSYD L 268.9 VITAMIN D DEFICIENCY 03/24/2012 CHRISTIANO CARRERA PSYD L 716.90 ARTHRITIS/ ARTHROPATHY, UNSPECIFIED 03/24/2012 244.9 HYPOTHYROIDISM 03/24/2012 268.9 VITAMIN D DEFICIENCY 03/24/2012 716.90 ARTHRITIS/ ARTHROPATHY, UNSPECIFIED 03/24/2012 244.9 HYPOTHYROIDISM 03/24/2012 268.9 VITAMIN D DEFICIENCY 03/24/2012 716.90 ARTHRITIS/ ARTHROPATHY, UNSPECIFIED 03/24/2012 244.9 HYPOTHYROIDISM 03/24/2012 268.9 VITAMIN D DEFICIENCY 03/24/2012 716.90 ARTHRITIS/ ARTHROPATHY, UNSPECIFIED 03/24/2012 244.9 HYPOTHYROIDISM 03/24/2012 268.9 VITAMIN D DEFICIENCY 03/24/2012 716.90 ARTHRITIS/ ARTHROPATHY, UNSPECIFIED 03/24/2012 244.9 HYPOTHYROIDISM 03/24/2012 268.9 VITAMIN D DEFICIENCY 03/24/2012 716.90 ARTHRITIS/ ARTHROPATHY, UNSPECIFIED 03/24/2012 244.9 HYPOTHYROIDISM 03/24/2012 268.9 VITAMIN D DEFICIENCY 03/24/2012 716.90 ARTHRITIS/ ARTHROPATHY, UNSPECIFIED 03/24/2012 244.9 HYPOTHYROIDISM 03/24/2012 268.9 VITAMIN D DEFICIENCY 03/24/2012 716.90 ARTHRITIS/ ARTHROPATHY, UNSPECIFIED 03/24/2012 244.9 HYPOTHYROIDISM 03/24/2012 268.9 VITAMIN D DEFICIENCY 03/24/2012 716.90 ARTHRITIS/ ARTHROPATHY, UNSPECIFIED 03/24/2012 244.9 HYPOTHYROIDISM 03/24/2012 268.9 VITAMIN D DEFICIENCY 03/24/2012 716.90 ARTHRITIS/ ARTHROPATHY, UNSPECIFIED 03/24/2012 LIZ JOAQUIN RUBEN WILNER 244.9 HYPOTHYROIDISM 03/24/2012 LIZ JOAQUIN RUBEN WILNER 268.9 VITAMIN D DEFICIENCY 03/24/2012 LIZ JOAQUIN RUBEN WILNER 716.90 ARTHRITIS/ ARTHROPATHY, UNSPECIFIED 03/24/2012 HEMA CUTLER MD 244.9 HYPOTHYROIDISM 03/24/2012 HEMA CUTLER MD 268.9 VITAMIN D DEFICIENCY 03/24/2012 HEMA CUTLER MD 716.90 ARTHRITIS/ ARTHROPATHY, UNSPECIFIED 03/24/2012 CHRISTIANO CARRERA PSYD L 244.9 HYPOTHYROIDISM 03/24/2012 CHRISTIANO CARRERA PSYD ANN L 268.9 VITAMIN D DEFICIENCY 03/24/2012 CHRISTIANO CARRERA PSYD ANN L 716.90 ARTHRITIS/ ARTHROPATHY, UNSPECIFIED 03/24/2012 LIZ JOAQUIN RUBEN WILNER 244.9 HYPOTHYROIDISM 03/24/2012 LIZ JOAQUIN RUBEN WILNER 268.9 VITAMIN D DEFICIENCY 03/24/2012 RUBEN HILL APRN 716.90 ARTHRITIS/ ARTHROPATHY, UNSPECIFIED 03/24/2012 MEGAN MENCHACA APRN T 244.9 HYPOTHYROIDISM 03/24/2012 NIKOLAI GENERATION ENGINEERMEGAN Mcclure T 268.9 VITAMIN D DEFICIENCY 03/24/2012 NIKOLAI GENERATION ENGINEER, MEGAN T 716.90 ARTHRITIS/ ARTHROPATHY, UNSPECIFIED 03/24/2012 DEANDRE FRANCO PITO L 244.9 HYPOTHYROIDISM 03/24/2012 DEANDRE FRANCO PITO L 268.9 VITAMIN D DEFICIENCY 03/24/2012 DEANDRE FRANCO PITO L 716.90 ARTHRITIS/ ARTHROPATHY, UNSPECIFIED 03/24/2012 HEMA CUTLER MD 244.9 HYPOTHYROIDISM 03/24/2012 HEMA CUTLER MD M 268.9 VITAMIN D DEFICIENCY 03/24/2012 HEMA CUTLER MD M 716.90 ARTHRITIS/ ARTHROPATHY, UNSPECIFIED 03/24/2012 LIZ KUMARRen RUBEN DARBY 244.9 HYPOTHYROIDISM 03/24/2012 LIZ KUMARRen RUBEN DARBY 268.9 VITAMIN D DEFICIENCY 03/24/2012 LIZ KUMARRen RUBEN DARBY 716.90 ARTHRITIS/ ARTHROPATHY, UNSPECIFIED 03/24/2012 MADL GENERATION ENGINEER, RICARDO L 244.9 HYPOTHYROIDISM 03/24/2012 MADL GENERATION ENGINEER, RICARDO L 268.9 VITAMIN D DEFICIENCY 03/24/2012 MADL GENERATION ENGINEER, RICARDO L 716.90 ARTHRITIS/ ARTHROPATHY, UNSPECIFIED 03/24/2012 MADL GENERATION ENGINEER, RICARDO L 244.9 HYPOTHYROIDISM 03/24/2012 MADL GENERATION ENGINEER, RICARDO L 268.9 VITAMIN D DEFICIENCY 03/24/2012 MADL GENERATION ENGINEER, RICARDO L 716.90 ARTHRITIS/ ARTHROPATHY, UNSPECIFIED 03/24/2012 MADL GENERATION ENGINEER, RICARDO L 244.9 HYPOTHYROIDISM 03/24/2012 MADL GENERATION ENGINEER, RICARDO L 268.9 VITAMIN D DEFICIENCY 03/24/2012 MADL GENERATION ENGINEER, RICARDO L 716.90 ARTHRITIS/ ARTHROPATHY, UNSPECIFIED 03/24/2012 MADL GENERATION ENGINEER, RICARDO L 244.9 HYPOTHYROIDISM 03/24/2012 MADL GENERATION ENGINEER, RICARDO L 268.9 VITAMIN D DEFICIENCY 03/24/2012 MADL GENERATION ENGINEER, RICARDO L 716.90 ARTHRITIS/ ARTHROPATHY, UNSPECIFIED 03/24/2012 MADL GENERATION ENGINEER, RICARDO L 244.9 HYPOTHYROIDISM 03/24/2012 MADL GENERATION ENGINEER, RICARDO L 268.9 VITAMIN D DEFICIENCY 03/24/2012 MADL GENERATION ENGINEER, RICARDO L 716.90 ARTHRITIS/ ARTHROPATHY, UNSPECIFIED 03/24/2012 MADL GENERATION ENGINEER, RICARDO L 244.9 HYPOTHYROIDISM 03/24/2012 MADL GENERATION ENGINEER, RICARDO L 268.9 VITAMIN D DEFICIENCY 03/24/2012 MADL GENERATION ENGINEER, RICARDO L 716.90 ARTHRITIS/ ARTHROPATHY, UNSPECIFIED 03/24/2012 CHRISTIANO CARRERA PSYD ANN L 244.9 HYPOTHYROIDISM 03/24/2012 CHRISTIANO CARRERA PSYD ANN L 268.9 VITAMIN D DEFICIENCY 03/24/2012 CHRISTIANO CARRERA PSYD ANN L 716.90 ARTHRITIS/ ARTHROPATHY, UNSPECIFIED 03/24/2012 MADL GENERATION ENGINEER, RICARDO L 244.9 HYPOTHYROIDISM 03/24/2012 MADL GENERATION ENGINEER, RICARDO L 268.9 VITAMIN D DEFICIENCY 03/24/2012 MADL GENERATION ENGINEER, RICARDO L 716.90 ARTHRITIS/ ARTHROPATHY, UNSPECIFIED 03/24/2012 MADL GENERATION ENGINEER, RICARDO L 244.9 HYPOTHYROIDISM 03/24/2012 MADL GENERATION ENGINEER, RICARDO L 268.9 VITAMIN D DEFICIENCY 03/24/2012 MADL GENERATION ENGINEER, RICARDO L 716.90 ARTHRITIS/ ARTHROPATHY, UNSPECIFIED 03/24/2012 PORTER DO, BON K 244.9 HYPOTHYROIDISM 03/24/2012 PORTER DO, BON K 268.9 VITAMIN D DEFICIENCY 03/24/2012 PORTER DO, BON K 716.90 ARTHRITIS/ ARTHROPATHY, UNSPECIFIED 03/24/2012 CHRISTIANO CARRERA PSYD ANN L 244.9 HYPOTHYROIDISM 03/24/2012 CHRISTIANO CARRERA PSYD ANN L 268.9 VITAMIN D DEFICIENCY 03/24/2012 CHRISTIANO CARRERA PSYD ANN L 716.90 ARTHRITIS/ ARTHROPATHY, UNSPECIFIED 03/24/2012 MADL GENERATION ENGINEER, RICARDO L 244.9 HYPOTHYROIDISM 03/24/2012 MADL GENERATION ENGINEER, RICARDO L 268.9 VITAMIN D DEFICIENCY 03/24/2012 MADL GENERATION ENGINEER, RICARDO L 716.90 ARTHRITIS/ ARTHROPATHY, UNSPECIFIED 03/24/2012 MADL GENERATION ENGINEER, RICARDO L 244.9 HYPOTHYROIDISM 03/24/2012 MADL GENERATION ENGINEER, RICARDO L 268.9 VITAMIN D DEFICIENCY 03/24/2012 MADL GENERATION ENGINEER, RICARDO L 716.90 ARTHRITIS/ ARTHROPATHY, UNSPECIFIED 03/24/2012 MADL GENERATION ENGINEER, RICARDO L 244.9 HYPOTHYROIDISM 03/24/2012 MADL GENERATION ENGINEER, RICARDO L 268.9 VITAMIN D DEFICIENCY 03/24/2012 MADL GENERATION ENGINEER, RICARDO L 716.90 ARTHRITIS/ ARTHROPATHY, UNSPECIFIED 03/24/2012 CHRISTIANO CARRERA PSYD ANN L 244.9 HYPOTHYROIDISM 03/24/2012 CHRISTIANO CARRERA PSYD ANN L 268.9 VITAMIN D DEFICIENCY 03/24/2012 CHRISTIANO CARRERA PSYD ANN L 716.90 ARTHRITIS/ ARTHROPATHY, UNSPECIFIED 03/24/2012 MADL GENERATION ENGINEER, RICARDO L 244.9 HYPOTHYROIDISM 03/24/2012 MADL GENERATION ENGINEER, RICARDO L 268.9 VITAMIN D DEFICIENCY 03/24/2012 MADL GENERATION ENGINEER, RICARDO L 716.90 ARTHRITIS/ ARTHROPATHY, UNSPECIFIED 03/24/2012 MADL GENERATION ENGINEER, RICARDO L 244.9 HYPOTHYROIDISM 03/24/2012 MADL GENERATION ENGINEER, RICARDO L 268.9 VITAMIN D DEFICIENCY 03/24/2012 MADL GENERATION ENGINEER, RICARDO L 716.90 ARTHRITIS/ ARTHROPATHY, UNSPECIFIED 03/24/2012 MADL GENERATION ENGINEER, RICARDO L 244.9 HYPOTHYROIDISM 03/24/2012 MADL GENERATION ENGINEER, RICARDO L 268.9 VITAMIN D DEFICIENCY 03/24/2012 MADL GENERATION ENGINEER, RICARDO L 716.90 ARTHRITIS/ ARTHROPATHY, UNSPECIFIED 03/24/2012 PORTER DO, BON K 244.9 HYPOTHYROIDISM 03/24/2012 PORTER DO, BON K 268.9 VITAMIN D DEFICIENCY 03/24/2012 PORTER DO, BON K 716.90 ARTHRITIS/ ARTHROPATHY, UNSPECIFIED 03/24/2012 MADL GENERATION ENGINEER, RICARDO L 244.9 HYPOTHYROIDISM 03/24/2012 MADL GENERATION ENGINEER, RICARDO L 268.9 VITAMIN D DEFICIENCY 03/24/2012 MADL GENERATION ENGINEER, RICARDO L 716.90 ARTHRITIS/ ARTHROPATHY, UNSPECIFIED 03/24/2012 CHRISTIANO CARRERA PSYD ANN L 244.9 HYPOTHYROIDISM 03/24/2012 CHRISTIANO CARRERA PSYD ANN L 268.9 VITAMIN D DEFICIENCY 03/24/2012 CHRISTIANO CARRERA PSYD ANN L 716.90 ARTHRITIS/ ARTHROPATHY, UNSPECIFIED 03/24/2012 CHRISTIANO CARRERA PSYD ANN L 244.9 HYPOTHYROIDISM 03/24/2012 CHRISTIANO CARRERA PSYD ANN L 268.9 VITAMIN D DEFICIENCY 03/24/2012 CHRISTIANO CARRERA PSYD ANN L 716.90 ARTHRITIS/ ARTHROPATHY, UNSPECIFIED 06/30/2012 GERMAN RUSHING BON K 466.0 BRONCHITIS, ACUTE 06/30/2012 SHANITA PORTER DOA K 786.2 COUGH 06/30/2012 BON PORTER DO K 466.0 BRONCHITIS, ACUTE 06/30/2012 SHANITA PORTER DOA K 786.2 COUGH 06/30/2012 CHRISTIANO CARRERA PSYD ANN L 466.0 BRONCHITIS, ACUTE 06/30/2012 CHRISTIANO CARRERA PSYD ANN L 786.2 COUGH 06/30/2012 466.0 BRONCHITIS, ACUTE 06/30/2012 786.2 COUGH 06/30/2012 466.0 BRONCHITIS, ACUTE 06/30/2012 786.2 COUGH 06/30/2012 466.0 BRONCHITIS, ACUTE 06/30/2012 786.2 COUGH 06/30/2012 466.0 BRONCHITIS, ACUTE 06/30/2012 786.2 COUGH 06/30/2012 466.0 BRONCHITIS, ACUTE 06/30/2012 786.2 COUGH 06/30/2012 466.0 BRONCHITIS, ACUTE 06/30/2012 786.2 COUGH 06/30/2012 466.0 BRONCHITIS, ACUTE 06/30/2012 786.2 COUGH 06/30/2012 466.0 BRONCHITIS, ACUTE 06/30/2012 786.2 COUGH 06/30/2012 466.0 BRONCHITIS, ACUTE 06/30/2012 786.2 COUGH 06/30/2012 HILL GENERATION ENGINEER, RUBEN WILNER 466.0 BRONCHITIS, ACUTE 06/30/2012 HILL GENERATION ENGINEER, RUBEN DARBY 786.2 COUGH 06/30/2012 OMAYRA ANDERSON, HEMA M 466.0 BRONCHITIS, ACUTE 06/30/2012 OMAYRA ANDERSON, HEMA M 786.2 COUGH 06/30/2012 DEANDRE PSOLU, PITO L 466.0 BRONCHITIS, ACUTE 06/30/2012 DEANDRE FRANCO, PITO L 786.2 COUGH 06/30/2012 HILL GENERATION ENGINEER, RUBEN DARBY 466.0 BRONCHITIS, ACUTE 06/30/2012 HILL GENERATION ENGINEER, RUBEN DARBY 786.2 COUGH 06/30/2012 NIKOLAI GENERATION ENGINEER, MEGAN T 466.0 BRONCHITIS, ACUTE 06/30/2012 NIKOLAI GENERATION ENGINEER, MEGAN T 786.2 COUGH 06/30/2012 DEANDRE FRANCO, PITO L 466.0 BRONCHITIS, ACUTE 06/30/2012 DEANDRE FRANCO, PITO L 786.2 COUGH 06/30/2012 HEMA CUTLER MD M 466.0 BRONCHITIS, ACUTE 06/30/2012 HEMA CUTLER MD 786.2 COUGH 06/30/2012 LIZ JOAQUIN, RUBEN DARBY 466.0 BRONCHITIS, ACUTE 06/30/2012 HILL APRN, RUBEN DARBY 786.2 COUGH 06/30/2012 MADL GENERATION ENGINEER, RICARDO L 466.0 BRONCHITIS, ACUTE 06/30/2012 MADL GENERATION ENGINEER, RICARDO L 786.2 COUGH 06/30/2012 MADL GENERATION ENGINEER, RICARDO L 466.0 BRONCHITIS, ACUTE 06/30/2012 MADL GENERATION ENGINEER, RICARDO L 786.2 COUGH 06/30/2012 MADL GENERATION ENGINEER, RICARDO L 466.0 BRONCHITIS, ACUTE 06/30/2012 MADL GENERATION ENGINEER, RICARDO L 786.2 COUGH 06/30/2012 MADL GENERATION ENGINEER, RICARDO L 466.0 BRONCHITIS, ACUTE 06/30/2012 MADL GENERATION ENGINEER, RICARDO L 786.2 COUGH 06/30/2012 MADL GENERATION ENGINEER, RICARDO L 466.0 BRONCHITIS, ACUTE 06/30/2012 MADL GENERATION ENGINEER, RICARDO L 786.2 COUGH 06/30/2012 MADL GENERATION ENGINEER, RICARDO L 466.0 BRONCHITIS, ACUTE 06/30/2012 MADL GENERATION ENGINEER, RICARDO L 786.2 COUGH 06/30/2012 CHRISTIANO CARRERA PSYD ANN L 466.0 BRONCHITIS, ACUTE 06/30/2012 CHRISTIANO CARRERA PSYD ANN L 786.2 COUGH 06/30/2012 MADL GENERATION ENGINEER, RICARDO L 466.0 BRONCHITIS, ACUTE 06/30/2012 MADL GENERATION ENGINEER, RICARDO L 786.2 COUGH 06/30/2012 MADL GENERATION ENGINEER, RICARDO L 466.0 BRONCHITIS, ACUTE 06/30/2012 MADL GENERATION ENGINEER, RICARDO L 786.2 COUGH 06/30/2012 PORTER DO, BON K 466.0 BRONCHITIS, ACUTE 06/30/2012 PORTER DO, BON K 786.2 COUGH 06/30/2012 CHRISTIANO CARRERA PSYD ANN L 466.0 BRONCHITIS, ACUTE 06/30/2012 CHRISTIANO CARRERA PSYD ANN L 786.2 COUGH 06/30/2012 MADL GENERATION ENGINEER, RICARDO L 466.0 BRONCHITIS, ACUTE 06/30/2012 MADL GENERATION ENGINEER, RICARDO L 786.2 COUGH 06/30/2012 MADL GENERATION ENGINEER, RICARDO L 466.0 BRONCHITIS, ACUTE 06/30/2012 MADL GENERATION ENGINEER, RICARDO L 786.2 COUGH 06/30/2012 MADL GENERATION ENGINEER, RICARDO L 466.0 BRONCHITIS, ACUTE 06/30/2012 MADL GENERATION ENGINEER, RICARDO L 786.2 COUGH 06/30/2012 CHRISTIANO CARRERA PSYD ANN L 466.0 BRONCHITIS, ACUTE 06/30/2012 CHRISTIANO CARRERA PSYD ANN L 786.2 COUGH 06/30/2012 MADL GENERATION ENGINEER, RICARDO L 466.0 BRONCHITIS, ACUTE 06/30/2012 MADL GENERATION ENGINEER, RICARDO L 786.2 COUGH 06/30/2012 MADL GENERATION ENGINEER, RICARDO L 466.0 BRONCHITIS, ACUTE 06/30/2012 MADL GENERATION ENGINEER, RICARDO L 786.2 COUGH 06/30/2012 MADL GENERATION ENGINEER, RICARDO L 466.0 BRONCHITIS, ACUTE 06/30/2012 MADL GENERATION ENGINEER, RICARDO L 786.2 COUGH 06/30/2012 PORTER DO, BON K 466.0 BRONCHITIS, ACUTE 06/30/2012 PORTER DO, BON K 786.2 COUGH 06/30/2012 MADL GENERATION ENGINEER, RICARDO L 466.0 BRONCHITIS, ACUTE 06/30/2012 MADL GENERATION ENGINEER, RICARDO L 786.2 COUGH 06/30/2012 CHRISTIANO CARRERA PSYD L 466.0 BRONCHITIS, ACUTE 06/30/2012 DEANDRE FRANCO, CHRISTIANO NASH L 786.2 COUGH 07/16/2012 PORTER DO, BON K 724.2 LUMBAGO/ LOW BACK PAIN 07/16/2012 DEANDRE FRANCO, CHRISTIANO NASH L 724.2 LUMBAGO/ LOW BACK PAIN 07/16/2012 724.2 LUMBAGO/ LOW BACK PAIN 07/16/2012 724.2 lower back pain 07/16/2012 724.2 lower back pain 07/16/2012 724.2 lower back pain 07/16/2012 724.2 lower back pain 07/16/2012 724.2 lower back pain 07/16/2012 724.2 lower back pain 07/16/2012 724.2 lower back pain 07/16/2012 724.2 lower back pain 07/16/2012 RUBEN HILL APRN 724.2 lower back pain 07/16/2012 HEMA CUTLER MD 724.2 lower back pain 07/16/2012 CHRISTIANO CARRERA PSYD L 724.2 lower back pain 07/16/2012 RUBEN HILL APRN 724.2 lower back pain 07/16/2012 MEGAN MENCHACA APRN 724.2 lower back pain 07/16/2012 CHRISTIANO CARRERA PSYD L 724.2 lower back pain 07/16/2012 HEMA CUTLER MD 724.2 lower back pain 07/16/2012 RUBEN HILL APRN 724.2 lower back pain 07/16/2012 KEN GENERATION ENGINEER, RICARDO L 724.2 lower back pain 07/16/2012 MADL GENERATION ENGINEER, RICARDO L 724.2 lower back pain 07/16/2012 MADL GENERATION ENGINEER, RICARDO L 724.2 lower back pain 07/16/2012 MADL GENERATION ENGINEER, RICARDO L 724.2 lower back pain 07/16/2012 MADL GENERATION ENGINEER, RICARDO L 724.2 lower back pain 07/16/2012 MADL GENERATION ENGINEER, RICARDO L 724.2 lower back pain 07/16/2012 CHRISTIANO CARRERA PSYD ANN L 724.2 lower back pain 07/16/2012 MADL GENERATION ENGINEER, RICARDO L 724.2 lower back pain 07/16/2012 MADL GENERATION ENGINEER, RICARDO L 724.2 lower back pain 07/16/2012 PORTER DO, BON K 724.2 lower back pain 07/16/2012 CHRISTIANO CARRERA PSYD ANN L 724.2 lower back pain 07/16/2012 MADL GENERATION ENGINEER, RICARDO L 724.2 lower back pain 07/16/2012 MADL GENERATION ENGINEER, RICARDO L 724.2 lower back pain 07/16/2012 MADL GENERATION ENGINEER, RICARDO L 724.2 lower back pain 07/16/2012 CHRISTIANO CARRERA PSYD ANN L 724.2 lower back pain 07/16/2012 MADL GENERATION ENGINEER, RICARDO L 724.2 lower back pain 07/16/2012 MADL GENERATION ENGINEER, RICARDO L 724.2 lower back pain 07/16/2012 MADL GENERATION ENGINEER, RICARDO L 724.2 lower back pain 07/16/2012 PORTER DO, BON K 724.2 lower back pain 07/16/2012 MADL GENERATION ENGINEER, RICARDO L 724.2 lower back pain 07/16/2012 CHRISTIANO CARRERA PSYD ANN L 724.2 lower back pain 11/03/2012 SHAISTA WILSON Ot 682.6 CELLULITIS OF LEG 11/03/2012 SHAISTA WILSON Ot 787.91 DIARRHEA 11/05/2012 JEREMIAS HERNANDEZ MD Ot 599.0 URIN TRACT INFECTION NOS 11/05/2012 JEREMIAS HERNANDEZ MD Ot 722.52 LUMB/LUMBOSAC DISC DEGEN 11/05/2012 JEREMIAS HERNANDEZ MD Ot 724.2 LUMBAGO 11/05/2012 JEREMIAS HERNANDEZ MD Ot V58.69 OT MED,LT,CURRENT USE 11/06/2012 RITO ANDERSON, EVON Santana Ot 599.0 URIN TRACT INFECTION NOS 11/10/2012 599.0 URINARY TRACT INFECTION 11/10/2012 599.0 URINARY TRACT INFECTION 11/10/2012 599.0 URINARY TRACT INFECTION 11/10/2012 LIZ JOAQUIN, RUBEN DARBY 599.0 URINARY TRACT INFECTION 11/10/2012 OMAYRA ANDERSON, HEMA M 599.0 URINARY TRACT INFECTION 11/10/2012 CHRISTIANO CARRERA PSYD L 599.0 URINARY TRACT INFECTION 11/10/2012 LIZ GENERATION ENGINEER, RUBEN DARBY 599.0 URINARY TRACT INFECTION 11/10/2012 MEGAN MENCHACA APRN 599.0 URINARY TRACT INFECTION 11/10/2012 CHRISTIANO CARRERA PSYD L 599.0 URINARY TRACT INFECTION 11/10/2012 HEMA CUTLER MD M 599.0 URINARY TRACT INFECTION 11/10/2012 LIZ GENERATION ENGINEER, RUBEN DARBY 599.0 URINARY TRACT INFECTION 11/10/2012 MADL GENERATION ENGINEER, RICARDO L 599.0 URINARY TRACT INFECTION 11/10/2012 MADL GENERATION ENGINEER, RICARDO L 599.0 URINARY TRACT INFECTION 11/10/2012 MADL GENERATION ENGINEER, RICARDO L 599.0 URINARY TRACT INFECTION 11/10/2012 MADL GENERATION ENGINEER, RICARDO L 599.0 URINARY TRACT INFECTION 11/10/2012 MADL GENERATION ENGINEER, RICARDO L 599.0 URINARY TRACT INFECTION 11/10/2012 MADL GENERATION ENGINEER, RICARDO L 599.0 URINARY TRACT INFECTION 11/10/2012 CHRISTIANO CARRERA PSYD ANN L 599.0 URINARY TRACT INFECTION 11/10/2012 MADL GENERATION ENGINEER, RICARDO L 599.0 URINARY TRACT INFECTION 11/10/2012 MADL GENERATION ENGINEER, RICARDO L 599.0 URINARY TRACT INFECTION 11/10/2012 BON PORTER DO K 599.0 URINARY TRACT INFECTION 11/10/2012 CHRISTIANO CARRERA PSYD L 599.0 URINARY TRACT INFECTION 11/10/2012 MADL GENERATION ENGINEER, RICARDO L 599.0 URINARY TRACT INFECTION 11/10/2012 MADL GENERATION ENGINEER, RICARDO L 599.0 URINARY TRACT INFECTION 11/10/2012 MADL GENERATION ENGINEER, RICARDO L 599.0 URINARY TRACT INFECTION 11/10/2012 CHRISTIANO CARRERA PSYD L 599.0 URINARY TRACT INFECTION 11/10/2012 MADL GENERATION ENGINEER, RICARDO L 599.0 URINARY TRACT INFECTION 11/10/2012 MADL GENERATION ENGINEER, RICARDO L 599.0 URINARY TRACT INFECTION 11/10/2012 MADL GENERATION ENGINEER, RICARDO L 599.0 URINARY TRACT INFECTION 11/10/2012 GERMAN RUSHING, BON K 599.0 URINARY TRACT INFECTION 11/10/2012 MADL GENERATION ENGINEER, RICARDO L 599.0 URINARY TRACT INFECTION 11/10/2012 CHRISTIANO CARRERA PSYD L 599.0 URINARY TRACT INFECTION 02/07/2013 ARYA ANDERSON, RIANNA A Ot 490 BRONCHITIS NOS 02/07/2013 ARYA ANDERSON, RIANNA A Ot 786.05 SHORTNESS OF BREATH 04/28/2013 MEGAN MENCHACA APRN T 380.10 OTITIS EXTERNA RIGHT 04/28/2013 CHRISTIANO CARRERA PSYD L 380.10 OTITIS EXTERNA RIGHT 04/28/2013 OMAYRA ANDERSON, HEMA Perry 380.10 OTITIS EXTERNA RIGHT 04/28/2013 RUBEN HILL APRN 380.10 OTITIS EXTERNA RIGHT 04/28/2013 KEN GENERATION ENGINEER, RICARDO L 380.10 OTITIS EXTERNA RIGHT 04/28/2013 KEN GENERATION ENGINEER, RICARDO L 380.10 OTITIS EXTERNA RIGHT 04/28/2013 SONYAL GENERATION ENGINEER, RICARDO L 380.10 OTITIS EXTERNA RIGHT 04/28/2013 KEN GENERATION ENGINEER, RICARDO L 380.10 OTITIS EXTERNA RIGHT 04/28/2013 KEN GENERATION ENGINEER, RICARDO L 380.10 OTITIS EXTERNA RIGHT 04/28/2013 KEN GENERATION ENGINEER, RICARDO L 380.10 OTITIS EXTERNA RIGHT 04/28/2013 CHRISTIANO CARRERA PSYD L 380.10 OTITIS EXTERNA RIGHT 04/28/2013 KEN GENERATION ENGINEER, RICARDO L 380.10 OTITIS EXTERNA RIGHT 04/28/2013 SONYAL GENERATION ENGINEER, RICARDO L 380.10 OTITIS EXTERNA RIGHT 04/28/2013 GERMAN RUSHING, BON K 380.10 OTITIS EXTERNA RIGHT 04/28/2013 CHRISTIANO CARRERA PSYD L 380.10 OTITIS EXTERNA RIGHT 04/28/2013 MADL GENERATION ENGINEER, RICARDO L 380.10 OTITIS EXTERNA RIGHT 04/28/2013 MADL GENERATION ENGINEER, RICARDO L 380.10 OTITIS EXTERNA RIGHT 04/28/2013 MADL GENERATION ENGINEER, RICARDO L 380.10 OTITIS EXTERNA RIGHT 04/28/2013 CHRISTIANO CARRERA PSYD L 380.10 OTITIS EXTERNA RIGHT 04/28/2013 MADL GENERATION ENGINEER, RICARDO L 380.10 OTITIS EXTERNA RIGHT 04/28/2013 MADL GENERATION ENGINEER, RICARDO L 380.10 OTITIS EXTERNA RIGHT 04/28/2013 MADL GENERATION ENGINEER, RICARDO L 380.10 OTITIS EXTERNA RIGHT 04/28/2013 GERMAN RUSHING, BON K 380.10 OTITIS EXTERNA RIGHT 04/28/2013 MADL GENERATION ENGINEER, RICARDO L 380.10 OTITIS EXTERNA RIGHT 04/28/2013 CHRISTIANO CARRERA PSYD L 380.10 OTITIS EXTERNA RIGHT 05/22/2013 MARY ANDERSON, JEREMIAS Kemp Ot 079.99 VIRAL INFECTION NOS 05/22/2013 MARY ANDERSON, JEREMIAS Kemp Ot 786.2 COUGH 07/06/2013 HEMA CUTLER MD 296.80 MO BIPOLAR NOS 07/06/2013 HEMA CUTLER MD 382.00 OTITIS MEDIA ACUTE SUPPURATIVE 07/06/2013 RUBEN HILL APRN 296.80 MO BIPOLAR NOS 07/06/2013 RUBEN HILL APRN 382.00 OTITIS MEDIA ACUTE SUPPURATIVE 07/06/2013 MADL GENERATION ENGINEER, RICARDO L 296.80 MO BIPOLAR NOS 07/06/2013 MADL GENERATION ENGINEER, RICARDO L 382.00 OTITIS MEDIA ACUTE SUPPURATIVE 07/06/2013 MADL GENERATION ENGINEER, RICARDO L 296.80 MO BIPOLAR NOS 07/06/2013 MADL GENERATION ENGINEER, RICARDO L 382.00 OTITIS MEDIA ACUTE SUPPURATIVE 07/06/2013 MADL GENERATION ENGINEER, RICARDO L 296.80 MO BIPOLAR NOS 07/06/2013 MADL GENERATION ENGINEER, RICARDO L 382.00 OTITIS MEDIA ACUTE SUPPURATIVE 07/06/2013 MADL GENERATION ENGINEER, RICARDO L 296.80 MO BIPOLAR NOS 07/06/2013 MADL GENERATION ENGINEER, RICARDO L 382.00 OTITIS MEDIA ACUTE SUPPURATIVE 07/06/2013 MADL GENERATION ENGINEER, RICARDO L 296.80 MO BIPOLAR NOS 07/06/2013 MADL GENERATION ENGINEER, RICARDO L 382.00 OTITIS MEDIA ACUTE SUPPURATIVE 07/06/2013 MADL GENERATION ENGINEER, RICARDO L 296.80 MO BIPOLAR NOS 07/06/2013 MADL GENERATION ENGINEER, RICARDO L 382.00 OTITIS MEDIA ACUTE SUPPURATIVE 07/06/2013 CHRISTIANO CARRERA PSYD L 296.80 MO BIPOLAR NOS 07/06/2013 CHRISTIANO CARRERA PSYD ANN L 382.00 OTITIS MEDIA ACUTE SUPPURATIVE 07/06/2013 MADL GENERATION ENGINEER, RICARDO L 296.80 MO BIPOLAR NOS 07/06/2013 MADL GENERATION ENGINEER, RICARDO L 382.00 OTITIS MEDIA ACUTE SUPPURATIVE 07/06/2013 MADL GENERATION ENGINEER, RICARDO L 296.80 MO BIPOLAR NOS 07/06/2013 MADL GENERATION ENGINEER, RICARDO L 382.00 OTITIS MEDIA ACUTE SUPPURATIVE 07/06/2013 PORTER DO, BON K 296.80 MO BIPOLAR NOS 07/06/2013 PORTER DO, BON K 382.00 OTITIS MEDIA ACUTE SUPPURATIVE 07/06/2013 CHRISTIANO CARRERA PSYD L 296.80 MO BIPOLAR NOS 07/06/2013 CHRISTIANO CARRERA PSYD L 382.00 OTITIS MEDIA ACUTE SUPPURATIVE 07/06/2013 MADL GENERATION ENGINEER, RICARDO L 296.80 MO BIPOLAR NOS 07/06/2013 MADL GENERATION ENGINEER, RICARDO L 382.00 OTITIS MEDIA ACUTE SUPPURATIVE 07/06/2013 MADL GENERATION ENGINEER, RICARDO L 296.80 MO BIPOLAR NOS 07/06/2013 MADL GENERATION ENGINEER, RICARDO L 382.00 OTITIS MEDIA ACUTE SUPPURATIVE 07/06/2013 MADL GENERATION ENGINEER, RICARDO L 296.80 MO BIPOLAR NOS 07/06/2013 MADL GENERATION ENGINEER, RICARDO L 382.00 OTITIS MEDIA ACUTE SUPPURATIVE 07/06/2013 CHRISTIANO CARRERA PSYD ANN L 296.80 MO BIPOLAR NOS 07/06/2013 CHRISTIANO CARRERA PSYD ANN L 382.00 OTITIS MEDIA ACUTE SUPPURATIVE 07/06/2013 MADL GENERATION ENGINEER, RICARDO L 296.80 MO BIPOLAR NOS 07/06/2013 MADL GENERATION ENGINEER, RICARDO L 382.00 OTITIS MEDIA ACUTE SUPPURATIVE 07/06/2013 MADL GENERATION ENGINEER, RICARDO L 296.80 MO BIPOLAR NOS 07/06/2013 MADL GENERATION ENGINEER, RICARDO L 382.00 OTITIS MEDIA ACUTE SUPPURATIVE 07/06/2013 MADL GENERATION ENGINEER, RICARDO L 296.80 MO BIPOLAR NOS 07/06/2013 MADL GENERATION ENGINEER, RICARDO L 382.00 OTITIS MEDIA ACUTE SUPPURATIVE 07/06/2013 PORTER DO, BON K 296.80 MO BIPOLAR NOS 07/06/2013 PORTER DO, BON K 382.00 OTITIS MEDIA ACUTE SUPPURATIVE 07/06/2013 MADL GENERATION ENGINEER, RICARDO L 296.80 MO BIPOLAR NOS 07/06/2013 MADL GENERATION ENGINEER, RICARDO L 382.00 OTITIS MEDIA ACUTE SUPPURATIVE 07/06/2013 CHRISTIANO CARRERA PSYD ANN L 296.80 MO BIPOLAR NOS 07/06/2013 CHRISTIANO CARRERA PSYD ANN L 382.00 OTITIS MEDIA ACUTE SUPPURATIVE 07/16/2013 KUSHAL RIOS MD Ot 278.00 OBESITY, NOS 07/16/2013 KUSHAL RIOS MD Ot 721.3 LUMBOSACRAL SPONDYLOSIS 07/16/2013 KUSHAL RIOS MD Ot 722.52 LUMB/LUMBOSAC DISC DEGEN 07/16/2013 KUSHAL RIOS MD Ot 729.1 MYALGIA AND MYOSITIS NOS 07/16/2013 KUSHAL RIOS MD Ot V58.69 OTH MED,LT,CURRENT USE 07/16/2013 KUSHAL RIOS MD Ot V85.39 BODY MASS INDEX 39.0-39.9, ADULT 08/30/2013 KUSHAL RIOS MD Ot 278.00 OBESITY, NOS 08/30/2013 KUSHAL RIOS MD Ot 721.3 LUMBOSACRAL SPONDYLOSIS 08/30/2013 KUSHAL RIOS MD Ot 722.52 LUMB/LUMBOSAC DISC DEGEN 08/30/2013 KUSHAL RIOS MD Ot 729.1 MYALGIA AND MYOSITIS NOS 08/30/2013 KUSHAL RIOS MD Ot V58.69 OTH MED,LT,CURRENT USE 08/30/2013 KUSHAL RIOS MD Ot V85.38 BODY MASS INDEX 38.0-38.9, ADULT 09/27/2013 KUSHAL RIOS MD Ot 278.00 OBESITY, NOS 09/27/2013 KUSHAL RIOS MD Ot 721.3 LUMBOSACRAL SPONDYLOSIS 09/27/2013 KUSHAL RIOS MD, Ot 722.52 LUMB/LUMBOSAC DISC DEGEN 09/27/2013 KUSHAL RIOS MD Ot 724.6 DISORDERS OF SACRUM 09/27/2013 KUSHAL RIOS MD Ot 729.1 MYALGIA AND MYOSITIS NOS 09/27/2013 KUSHAL RIOS MD Ot V85.39 BODY MASS INDEX 39.0-39.9, ADULT 10/06/2013 MADL GENERATION ENGINEER, RICARDO L 461.9 SINUSITIS ACUTE 10/06/2013 MADL GENERATION ENGINEER, RICARDO L 461.9 SINUSITIS ACUTE 10/06/2013 MADL GENERATION ENGINEER, RICARDO L 461.9 SINUSITIS ACUTE 10/06/2013 MADL GENERATION ENGINEER, RICARDO L 461.9 SINUSITIS ACUTE 10/06/2013 MADL GENERATION ENGINEER, RICARDO L 461.9 SINUSITIS ACUTE 10/06/2013 MADL GENERATION ENGINEER, RICARDO L 461.9 SINUSITIS ACUTE 10/06/2013 CHRISTIANO CARRERA PSYD L 461.9 SINUSITIS ACUTE 10/06/2013 MADL GENERATION ENGINEER, RICARDO L 461.9 SINUSITIS ACUTE 10/06/2013 MADL GENERATION ENGINEER, RICARDO L 461.9 SINUSITIS ACUTE 10/06/2013 BON PORTER DO K 461.9 SINUSITIS ACUTE 10/06/2013 CHRISTIANO CARRERA PSYD L 461.9 SINUSITIS ACUTE 10/06/2013 MADL GENERATION ENGINEER, RICARDO L 461.9 SINUSITIS ACUTE 10/06/2013 MADL GENERATION ENGINEER, RICARDO L 461.9 SINUSITIS ACUTE 10/06/2013 MADL GENERATION ENGINEER, RICARDO L 461.9 SINUSITIS ACUTE 10/06/2013 CHRISTIANO CARRERA PSYD L 461.9 SINUSITIS ACUTE 10/06/2013 MADL GENERATION ENGINEER, RICARDO L 461.9 SINUSITIS ACUTE 10/06/2013 MADL GENERATION ENGINEER, RICARDO L 461.9 SINUSITIS ACUTE 10/06/2013 MADL GENERATION ENGINEER, RICARDO L 461.9 SINUSITIS ACUTE 10/06/2013 BON PORTER DO K 461.9 SINUSITIS ACUTE 10/06/2013 MADL GENERATION ENGINEER, RICARDO L 461.9 SINUSITIS ACUTE 10/06/2013 CHRISTIANO CARRERA PSYD L 461.9 SINUSITIS ACUTE 10/12/2013 HECTOR MONSIVAIS GENERATION ENGINEER Ot 682.3 CELLULITIS OF ARM 11/05/2013 MADL GENERATION ENGINEER, RICARDO L 782.3 EDEMA 11/05/2013 MADL GENERATION ENGINEER, RICARDO L 782.3 EDEMA 11/05/2013 MADL GENERATION ENGINEER, RICARDO L 782.3 EDEMA 11/05/2013 MADL GENERATION ENGINEER, RICARDO L 782.3 EDEMA 11/05/2013 MADL GENERATION ENGINEER, RICARDO L 782.3 EDEMA 11/05/2013 CHRISTIANO CARRERA PSYD L 782.3 EDEMA 11/05/2013 MADL GENERATION ENGINEER, RICARDO L 782.3 EDEMA 11/05/2013 MADL GENERATION ENGINEER, RICARDO L 782.3 EDEMA 11/05/2013 BON PORTER DO K 782.3 EDEMA 11/05/2013 CHRISTIANO CARRERA PSYD L 782.3 EDEMA 11/05/2013 MADL GENERATION ENGINEER, RICARDO L 782.3 EDEMA 11/05/2013 MADL GENERATION ENGINEER, RICARDO L 782.3 EDEMA 11/05/2013 MADL GENERATION ENGINEER, RICARDO L 782.3 EDEMA 11/05/2013 CHRISTIANO CARRERA PSYD L 782.3 EDEMA 11/05/2013 MADL GENERATION ENGINEER, RICARDO L 782.3 EDEMA 11/05/2013 MADL GENERATION ENGINEER, RICARDO L 782.3 EDEMA 11/05/2013 MADL GENERATION ENGINEER, RICARDO L 782.3 EDEMA 11/05/2013 PORTER , BON K 782.3 EDEMA 11/05/2013 MADL GENERATION ENGINEER, RICARDO L 782.3 EDEMA 11/05/2013 CHRISTIANO CARRERA PSYD L 782.3 EDEMA 11/20/2013 GERMAN RUSHING, BON K Ot 305.1 TOBACCO USE DISORDER 11/20/2013 GERMAN RUSHING, BON K Ot 682.3 CELLULITIS OF ARM 11/24/2013 MADL GENERATION ENGINEER, RICARDO L 686.8 OTHER SPECIFIED LOCAL INFECTIONS OF SKIN AND SUBCUTANEOUS TISSUE 11/24/2013 MADL GENERATION ENGINEER, RICARDO L 686.8 OTHER SPECIFIED LOCAL INFECTIONS OF SKIN AND SUBCUTANEOUS TISSUE 11/24/2013 CHRISTIANO CARRERA PSYD L 686.8 OTHER SPECIFIED LOCAL INFECTIONS OF SKIN AND SUBCUTANEOUS TISSUE 11/24/2013 MADL GENERATION ENGINEER, RICARDO L 686.8 OTHER SPECIFIED LOCAL INFECTIONS OF SKIN AND SUBCUTANEOUS TISSUE 11/24/2013 MADL GENERATION ENGINEER, RICARDO L 686.8 OTHER SPECIFIED LOCAL INFECTIONS OF SKIN AND SUBCUTANEOUS TISSUE 11/24/2013 PORTER BON K 686.8 OTHER SPECIFIED LOCAL INFECTIONS OF SKIN AND SUBCUTANEOUS TISSUE 11/24/2013 CHRISTIANO CARRERA PSYD L 686.8 OTHER SPECIFIED LOCAL INFECTIONS OF SKIN AND SUBCUTANEOUS TISSUE 11/24/2013 MADL GENERATION ENGINEER, RICARDO L 686.8 OTHER SPECIFIED LOCAL INFECTIONS OF SKIN AND SUBCUTANEOUS TISSUE 11/24/2013 MADL GENERATION ENGINEER, RICARDO L 686.8 OTHER SPECIFIED LOCAL INFECTIONS OF SKIN AND SUBCUTANEOUS TISSUE 11/24/2013 MADL GENERATION ENGINEER, RICARDO L 686.8 OTHER SPECIFIED LOCAL INFECTIONS OF SKIN AND SUBCUTANEOUS TISSUE 11/24/2013 CHRISTIANO CARRERA PSYD L 686.8 OTHER SPECIFIED LOCAL INFECTIONS OF SKIN AND SUBCUTANEOUS TISSUE 11/24/2013 MADL GENERATION ENGINEER, RICARDO L 686.8 OTHER SPECIFIED LOCAL INFECTIONS OF SKIN AND SUBCUTANEOUS TISSUE 11/24/2013 MADL GENERATION ENGINEER, RICARDO L 686.8 OTHER SPECIFIED LOCAL INFECTIONS OF SKIN AND SUBCUTANEOUS TISSUE 11/24/2013 MADL GENERATION ENGINEER, RICARDO L 686.8 OTHER SPECIFIED LOCAL INFECTIONS OF SKIN AND SUBCUTANEOUS TISSUE 11/24/2013 BON PORTER DO 686.8 OTHER SPECIFIED LOCAL INFECTIONS OF SKIN AND SUBCUTANEOUS TISSUE 11/24/2013 MADL GENERATION ENGINEER, RICARDO L 686.8 OTHER SPECIFIED LOCAL INFECTIONS OF SKIN AND SUBCUTANEOUS TISSUE 11/24/2013 CHRISTIANO CARRERA PSYD L 686.8 OTHER SPECIFIED LOCAL INFECTIONS OF SKIN AND SUBCUTANEOUS TISSUE 01/28/2014 KUSHAL RIOS MD Ot 278.00 OBESITY, NOS 01/28/2014 KUSHAL RIOS MD Ot 721.3 LUMBOSACRAL SPONDYLOSIS 01/28/2014 KUSHAL RIOS MD Ot 724.6 DISORDERS OF SACRUM 01/28/2014 KUSHAL RIOS MD Ot 729.1 MYALGIA AND MYOSITIS NOS 01/28/2014 KUSHAL RIOS MD Ot V58.69 OTH MED,LT,CURRENT USE 01/28/2014 KUSHAL RIOS MD Ot V85.41 BODY MASS INDEX 40.0-44.9, ADULT 02/07/2014 MADL GENERATION ENGINEER, RICARDO L 787.02 NAUSEA ALONE 02/07/2014 MADL GENERATION ENGINEER, RICARDO L 787.02 NAUSEA ALONE 02/07/2014 MADL GENERATION ENGINEER, RICARDO L 787.02 NAUSEA ALONE 02/07/2014 CHRISTIANO CARRERA PSYD L 787.02 NAUSEA ALONE 02/07/2014 MADL GENERATION ENGINEER, RICARDO L 787.02 NAUSEA ALONE 02/07/2014 MADL GENERATION ENGINEER, RICARDO L 787.02 NAUSEA ALONE 02/07/2014 MADL GENERATION ENGINEER, RICARDO L 787.02 NAUSEA ALONE 02/07/2014 BON PORTER DO K 787.02 NAUSEA ALONE 02/07/2014 MADL GENERATION ENGINEER, RICARDO L 787.02 NAUSEA ALONE 02/07/2014 CHRISTIANO CARRERA PSYD L 787.02 NAUSEA ALONE 04/18/2014 MADL GENERATION ENGINEER, RICARDO L 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 04/18/2014 MADL GENERATION ENGINEER, RICARDO L 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 04/18/2014 RICARDO ROGERS APRN L 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 04/18/2014 GERMAN RUSHING BON K 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 04/18/2014 ANDREW ROGERS APRNA L 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 04/18/2014 CHRISTIANO CARRERA PSYD L 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 06/01/2014 SHAISTA WILSON Ot 787.02 NAUSEA ALONE 06/01/2014 SHAISTA WILSON L Ot 789.01 ABDOMINAL PAIN, RIGHT UPPER QUADRANT 06/20/2014 ANDREW ROGERS APRNA L 789.01 ABDOMINAL PAIN RIGHT UPPER QUADRANT 06/20/2014 BON PORTER DO K 789.01 ABDOMINAL PAIN RIGHT UPPER QUADRANT 06/20/2014 ANDREW ROGERS APRNA L 789.01 ABDOMINAL PAIN RIGHT UPPER QUADRANT 06/20/2014 CHRISTIANO CARRERA PSYD 789.01 ABDOMINAL PAIN RIGHT UPPER QUADRANT 07/18/2014 BON PORTER DO K 575.8 OTHER SPECIFIED DISORDERS OF GALLBLADDER 07/18/2014 ANDREW ROGERS APRNA L 575.8 OTHER SPECIFIED DISORDERS OF GALLBLADDER 07/18/2014 CHRISTIANO CARRERA PSYD 575.8 OTHER SPECIFIED DISORDERS OF GALLBLADDER 07/28/2014 Ot 575.11 CHRONIC CHOLECYSTITIS 08/08/2014 Ot 575.8 08/08/2014 Ot V72.63 08/08/2014 Ot V74.8 08/23/2014 ANDREW ROGERS APRNA L 460 ACUTE NASOPHARYNGITIS (COMMON COLD) 08/23/2014 CHRISTIANO CARRERA PSYD 460 ACUTE NASOPHARYNGITIS (COMMON COLD) 09/23/2014 Ot 722.52 09/23/2014 OMAYRA ANDERSON, HEMA ePrry Ot 787.60 09/23/2014 KUSHAL RIOS MD Ot 278.00 09/23/2014 KUSHAL RIOS MD Ot 721.3 09/23/2014 KUSHAL RIOS MD Ot 722.52 09/23/2014 KUSHAL RIOS MD Ot 729.1 09/23/2014 KUSHAL RIOS MD Ot V58.69 09/23/2014 KUSHAL RIOS MD Ot V85.36 09/23/2014 KUSHAL RIOS MD Ot 278.00 09/23/2014 KUSHAL RIOS MD Ot 721.3 09/23/2014 KUSHAL RIOS MD Ot 722.52 09/23/2014 KUSHAL RIOS MD Ot 724.6 09/23/2014 KUSHAL RIOS MD Ot 729.1 09/23/2014 KUSHAL RIOS MD Ot V58.69 09/23/2014 KUSHAL RIOS MD Ot V85.38 09/23/2014 KUSHAL RIOS MD Ot 724.6 09/23/2014 KUSHAL RIOS MD Ot V64.1 09/23/2014 Ot 789.01 09/23/2014 Ot 575.8 09/23/2014 Ot V72.63 09/23/2014 Ot V74.8 09/23/2014 KUSHAL RIOS MD Ot 278.00 OBESITY, NOS 09/23/2014 KUSHAL RIOS MD Ot 721.3 LUMBOSACRAL SPONDYLOSIS 09/23/2014 KUSHAL RIOS MD Ot 724.6 DISORDERS OF SACRUM 09/23/2014 KUSHAL RIOS MD Ot V58.69 OTH MED,LT,CURRENT USE 09/23/2014 KUSHAL RIOS MD Ot V85.41 BODY MASS INDEX 40.0-44.9, ADULT 10/13/2014 Ot 722.52 10/13/2014 OMAYRA ANDERSON, HEMA Perry Ot 787.60 10/13/2014 KUSHAL RIOS MD, Ot 278.00 10/13/2014 KUSHAL RIOS MD Ot 721.3 10/13/2014 KUSHAL RIOS MD Ot 722.52 10/13/2014 KUSHAL RIOS MD Ot 729.1 10/13/2014 KUSHAL RIOS MD Ot V58.69 10/13/2014 KUSHAL RIOS MD Ot V85.36 10/13/2014 KUSHAL RIOS MD Ot 278.00 10/13/2014 KUSHAL RIOS MD Ot 721.3 10/13/2014 KUSHAL RIOS MD Ot 722.52 10/13/2014 KUSHAL RIOS MD Ot 724.6 10/13/2014 KUSHAL RIOS MD Ot 729.1 10/13/2014 KUSHAL RIOS MD Ot V58.69 10/13/2014 KUSHAL RIOS MD Ot V85.38 10/13/2014 KUSHAL RIOS MD Ot 724.6 10/13/2014 KUSHAL RIOS MD Ot V64.1 10/13/2014 Ot 789.01 10/13/2014 Ot 575.8 10/13/2014 Ot V72.63 10/13/2014 Ot V74.8 11/09/2014 Ot 722.52 11/09/2014 HEMA CUTLER MD Ot 787.60 11/09/2014 KUSHAL RIOS MD Ot 278.00 11/09/2014 KUSHAL RIOS MD Ot 721.3 11/09/2014 KUSHAL RIOS MD Ot 722.52 11/09/2014 KUSHAL RIOS MD Ot 729.1 11/09/2014 KUSHAL RIOS MD Ot V58.69 11/09/2014 KUSHAL RIOS MD Ot V85.36 11/09/2014 KUSHAL RIOS MD Ot 278.00 11/09/2014 KUSHAL RIOS MD Ot 721.3 11/09/2014 KUSHAL RIOS MD Ot 722.52 11/09/2014 KUSHAL RIOS MD Ot 724.6 11/09/2014 KUSHAL RIOS MD Ot 729.1 11/09/2014 KUSHAL RIOS MD Ot V58.69 11/09/2014 KUSHAL RIOS MD Ot V85.38 11/09/2014 KUSHAL RIOS MD Ot 724.6 11/09/2014 KUSHAL RIOS MD Ot V64.1 11/09/2014 Ot 789.01 11/09/2014 Ot 575.8 11/09/2014 Ot V72.63 11/09/2014 Ot V74.8 11/30/2014 RICARDO ROGERS Ot 724.2 12/14/2014 AURA PEPE APRN Ot 611.71 01/06/2015 AURA PEPE GENERATION ENGINEER Ot 611.71 04/05/2015 Ot 722.52 04/05/2015 HEMA CUTLER MD Ot 787.60 04/05/2015 KUSHAL RIOS MD Ot 278.00 04/05/2015 KUSHAL RIOS MD Ot 721.3 04/05/2015 KUSHAL RIOS MD Ot 722.52 04/05/2015 KUSHAL RIOS MD Ot 729.1 04/05/2015 KUSHAL RIOS MD Ot V58.69 04/05/2015 KUSHAL RIOS MD Ot V85.36 04/05/2015 KUSHAL RIOS MD Ot 278.00 04/05/2015 KUSHAL RIOS MD Ot 721.3 04/05/2015 KUSHAL RIOS MD Ot 722.52 04/05/2015 KUSHAL RIOS MD Ot 724.6 04/05/2015 KUSHAL RIOS MD Ot 729.1 04/05/2015 KUSHAL RIOS MD Ot V58.69 04/05/2015 KUSHAL RIOS MD Ot V85.38 04/05/2015 KUSHAL RIOS MD Ot 724.6 04/05/2015 KUSHAL RIOS MD Ot V64.1 04/05/2015 Ot 789.01 04/05/2015 Ot 575.8 04/05/2015 Ot V72.63 04/05/2015 Ot V74.8 04/05/2015 RICARDO ROGERS Ot 724.2 04/05/2015 AURA PEPE APRN Ot 611.71 05/31/2015 Ot F17.210 NICOTINE DEPENDENCE, CIGARETTES, UNCOMPL 05/31/2015 Ot J40 BRONCHITIS, NOT SPECIFIED ACUTE OR CH 09/06/2015 RIO CASE DO Ot R19.4 CHANGE IN BOWEL HABIT 09/06/2015 RIO CASE DO Ot Z01.818 ENCOUNTER FOR OTHER PREPROCEDURAL EXAMIN 09/07/2015 RIO CASE DO Ot R19.4 CHANGE IN BOWEL HABIT 09/07/2015 RIO CASE DO Ot Z01.818 ENCOUNTER FOR OTHER PREPROCEDURAL EXAMIN 09/14/2015 RIO CASE DO Ot K92.1 MELENA 09/14/2015 RIO CASE DO Ot R19.4 CHANGE IN BOWEL HABIT 09/15/2015 RIO CASE DO Ot K92.1 MELENA 09/15/2015 CASE RIO D Ot R19.4 CHANGE IN BOWEL HABIT 10/13/2015 ARYA ANDERSON, RIANAN Clay Ot F17.210 NICOTINE DEPENDENCE, CIGARETTES, UNCOMPL 10/13/2015 RIANNA KOENIG MD Ot G89.29 OTHER CHRONIC PAIN 10/13/2015 RIANNA KOENIG MD Ot M54.5 LOW BACK PAIN 10/16/2015 RIANNA KOENIG MD Ot F17.210 NICOTINE DEPENDENCE, CIGARETTES, UNCOMPL 10/16/2015 RIANNA KOENIG MD A Ot G89.29 OTHER CHRONIC PAIN 10/16/2015 RIANNA KOENIG MD Ot M54.5 LOW BACK PAIN 10/17/2015 SHAISTA WILSON Ot F17.210 NICOTINE DEPENDENCE, CIGARETTES, UNCOMPL 10/17/2015 SHAISTA WILSON Ot G89.29 OTHER CHRONIC PAIN 10/17/2015 SHAISTA WILSON Ot M54.16 RADICULOPATHY, LUMBAR REGION 10/18/2015 SHAISTA WILSON Ot F17.210 NICOTINE DEPENDENCE, CIGARETTES, UNCOMPL 10/18/2015 SHAISTA WILSON Ot G89.29 OTHER CHRONIC PAIN 10/18/2015 SHAISTA WILSON Ot M54.16 RADICULOPATHY, LUMBAR REGION 10/23/2015 HECTOR MONSIVAIS GENERATION ENGINEER Ot F17.210 NICOTINE DEPENDENCE, CIGARETTES, UNCOMPL 10/23/2015 HECTOR MONSIVAIS GENERATION ENGINEER Ot G89.29 OTHER CHRONIC PAIN 10/23/2015 HECTOR MONSIVAIS GENERATION ENGINEER Ot M54.5 LOW BACK PAIN 10/23/2015 HECTOR MONSIVAIS GENERATION ENGINEER Ot N39.0 URINARY TRACT INFECTION, SITE NOT SPECIF 10/24/2015 HECTOR MONSIVAIS GENERATION ENGINEER Ot G89.29 OTHER CHRONIC PAIN 10/24/2015 HECTOR MONSIVAIS GENERATION ENGINEER Ot M54.5 LOW BACK PAIN 10/24/2015 HECTOR MONSIVAIS GENERATION ENGINEER Ot N39.0 URINARY TRACT INFECTION, SITE NOT SPECIF 10/24/2015 HECTOR MONSIVAIS GENERATION ENGINEER Ot F17.210 NICOTINE DEPENDENCE, CIGARETTES, UNCOMPL 10/24/2015 HECTOR MONSIVAIS GENERATION ENGINEER Ot G89.29 OTHER CHRONIC PAIN 10/24/2015 HECTOR MONSIVAIS GENERATION ENGINEER Ot M54.5 LOW BACK PAIN 10/24/2015 HECTOR MONSIVAIS GENERATION ENGINEER Ot N39.0 URINARY TRACT INFECTION, SITE NOT SPECIF 11/03/2015 SHAISTA WILSON Ot F17.210 NICOTINE DEPENDENCE, CIGARETTES, UNCOMPL 11/03/2015 SHAISTA WILSON Ot G89.29 OTHER CHRONIC PAIN 11/03/2015 SHAISTA WILSON Ot M54.16 RADICULOPATHY, LUMBAR REGION 11/03/2015 SHAISTA WILSON Ot F17.210 NICOTINE DEPENDENCE, CIGARETTES, UNCOMPL 11/03/2015 SHAISTA WILSON Ot S01.01XA LACERATION WITHOUT FOREIGN BODY OF SCALP 11/03/2015 SHAISTA WILSON Ot W22.09XA STRIKING AGAINST OTHER STATIONARY OBJECT 11/03/2015 SHAISTA WILSON Ot Y92.000 [facility] OF [facility] NON-INSTITUT (PRIVATE) R 11/03/2015 SHAISTA WILSON Ot Y93.83 ACTIVITY, ROUGH HOUSING AND HORSEPLAY 11/03/2015 SHAISTA WILSON Ot Y99.8 OTHER EXTERNAL CAUSE STATUS 11/03/2015 SHAISTA WILSON Ot Z23 ENCOUNTER FOR IMMUNIZATION 11/06/2015 SHAISTA WILSON Ot F17.210 NICOTINE DEPENDENCE, CIGARETTES, UNCOMPL 11/06/2015 SHAISTA WILSON Ot S01.01XA LACERATION WITHOUT FOREIGN BODY OF SCALP 11/06/2015 SHAISTA WILSON Ot W22.09XA STRIKING AGAINST OTHER STATIONARY OBJECT 11/06/2015 SHAISTA WILSON Ot Y92.000 [facility] OF [facility] NON-INSTITUT (PRIVATE) R 11/06/2015 SHAISTA WILSON Ot Y93.83 ACTIVITY, ROUGH HOUSING AND HORSEPLAY 11/06/2015 SHAISTA WILSON Ot Y99.8 OTHER EXTERNAL CAUSE STATUS 11/06/2015 SHAISTA WILSON Ot Z23 ENCOUNTER FOR IMMUNIZATION 11/10/2015 MARY ANDERSON, JEREMIAS Kemp Ot S01.01XD LACERATION WITHOUT FOREIGN BODY OF SCALP 11/14/2015 QIANA MARTINEZ MD Ot F17.210 NICOTINE DEPENDENCE, CIGARETTES, UNCOMPL 11/14/2015 BRUEGGEMANN MD, QIANA T Ot G89.29 OTHER CHRONIC PAIN 11/14/2015 JUAN ANDERSON, QIANA T Ot M54.5 LOW BACK PAIN 11/15/2015 MARY ANDERSON, JEREMIAS Kemp Ot S01.01XD LACERATION WITHOUT FOREIGN BODY OF SCALP 11/15/2015 BLANCA ANDERSON, KUSHAL He Ot M54.5 LOW BACK PAIN 11/16/2015 JUAN ANDERSON, QIANA T Ot F17.210 NICOTINE DEPENDENCE, CIGARETTES, UNCOMPL 11/16/2015 JUAN ANDERSON, QIANA T Ot G89.29 OTHER CHRONIC PAIN 11/16/2015 JUAN ANDERSON, QIANA Snell Ot M54.5 LOW BACK PAIN 11/17/2015 KUSHAL RIOS MD Ot M54.5 LOW BACK PAIN 12/04/2015 KUSHAL RIOS MD Ot M54.5 LOW BACK PAIN 12/12/2015 JUAN ANDERSON, QIANA Snell Ot F17.210 NICOTINE DEPENDENCE, CIGARETTES, UNCOMPL 12/12/2015 JUAN ANDERSON, QIANA T Ot G89.29 OTHER CHRONIC PAIN 12/12/2015 JUAN ANDERSON, QIANA T Ot M54.5 LOW BACK PAIN 12/13/2015 JUAN ANDERSON, QIANA T Ot F17.210 NICOTINE DEPENDENCE, CIGARETTES, UNCOMPL 12/13/2015 JUAN ANDERSON, QIANA T Ot G89.29 OTHER CHRONIC PAIN 12/13/2015 JUAN ANDERSON, QIANA Snell Ot M54.5 LOW BACK PAIN 12/25/2015 JUAN ANDERSON, QIANA T Ot F17.210 NICOTINE DEPENDENCE, CIGARETTES, UNCOMPL 12/25/2015 JUAN ANDERSON, QIANA T Ot G89.29 OTHER CHRONIC PAIN 12/25/2015 JUAN ANDERSON, QIANA T Ot M54.5 LOW BACK PAIN 12/27/2015 JUAN ANDERSON, QIANA T Ot F17.210 NICOTINE DEPENDENCE, CIGARETTES, UNCOMPL 12/27/2015 JUAN ANDERSON, QIANA T Ot G89.29 OTHER CHRONIC PAIN 12/27/2015 JUAN ANDERSON, QIANA T Ot M54.5 LOW BACK PAIN 04/16/2016 SHAISTA WILSON Ot F17.210 NICOTINE DEPENDENCE, CIGARETTES, UNCOMPL 04/16/2016 SHAISTA WILSON Ot J20.9 ACUTE BRONCHITIS, UNSPECIFIED 04/16/2016 SHAISTA WILSON Ot R05 COUGH 04/16/2016 Ot 722.52 LUMB/ LUMBOSAC DISC DEGEN 04/16/2016 HEMA CUTLER MD Ot 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 04/16/2016 KUSHAL RIOS MD Ot 278.00 OBESITY, NOS 04/16/2016 KUSHAL RIOS MD Ot 721.3 LUMBOSACRAL SPONDYLOSIS 04/16/2016 KUSHAL RIOS MD, Ot 722.52 LUMB/LUMBOSAC DISC DEGEN 04/16/2016 KUSHAL RIOS MD, Ot 729.1 MYALGIA AND MYOSITIS NOS 04/16/2016 KUSHAL RIOS MD, Ot V58.69 OTH MED,LT,CURRENT USE 04/16/2016 KUSHAL RIOS MD Ot V85.36 BODY MASS INDEX 36.0-36.9, ADULT 04/16/2016 KUSHAL RIOS MD Ot 278.00 OBESITY, NOS 04/16/2016 KUSHAL RIOS MD Ot 721.3 LUMBOSACRAL SPONDYLOSIS 04/16/2016 KUSHAL RIOS MD Ot 722.52 LUMB/LUMBOSAC DISC DEGEN 04/16/2016 KUSHAL RIOS MD Ot 724.6 DISORDERS OF SACRUM 04/16/2016 KUSHAL RIOS MD Ot 729.1 MYALGIA AND MYOSITIS NOS 04/16/2016 KUSHAL RIOS MD, Ot V58.69 OTH MED,LT,CURRENT USE 04/16/2016 KUSHAL RIOS MD Ot V85.38 BODY MASS INDEX 38.0-38.9, ADULT 04/16/2016 KUSHAL RIOS MD Ot 724.6 DISORDERS OF SACRUM 04/16/2016 KUSHAL RIOS MD Ot V64.1 NO PROC/CONTRAINDICATION 04/16/2016 Ot 789.01 ABDOMINAL PAIN, RIGHT UPPER QUADRANT 04/16/2016 Ot 575.8 DIS OF GALLBLADDER NEC 04/16/2016 Ot V72.63 PRE- PROCEDURAL LABORATORY EXAMINATION 04/16/2016 Ot V74.8 SCREEN- BACTERIAL DIS NEC 04/16/2016 RICARDO ROGERS NEEDLE VALVE OPERATOR Ot 724.2 LUMBAGO 04/16/2016 AURA PEPE GENERATION ENGINEER Ot 611.71 MASTODYNIA 04/16/2016 KUSHAL RIOS MD, Ot M54.5 LOW BACK PAIN 04/17/2016 SHAISTA WILSON Ot F17.210 NICOTINE DEPENDENCE, CIGARETTES, UNCOMPL 04/17/2016 SHAISTA WILSON Ot J20.9 ACUTE BRONCHITIS, UNSPECIFIED 04/17/2016 SHAISTA WILSON Ot R05 COUGH 04/23/2016 KUSHAL RIOS MD Ot G89.4 CHRONIC PAIN SYNDROME 04/23/2016 KUSHAL RIOS MD Ot M54.5 LOW BACK PAIN 04/23/2016 KUSHAL RIOS MD Ot Z01.818 ENCOUNTER FOR OTHER PREPROCEDURAL EXAMIN 04/23/2016 KUSHAL RIOS MD Ot Z11.2 ENCOUNTER FOR SCREENING FOR OTHER BACTER 04/24/2016 KUSHAL RIOS MD Ot G89.4 CHRONIC PAIN SYNDROME 04/24/2016 KUSHAL RIOS MD Ot M54.5 LOW BACK PAIN 04/24/2016 KUSHAL RIOS MD Ot Z01.818 ENCOUNTER FOR OTHER PREPROCEDURAL EXAMIN 04/24/2016 KUSHAL RIOS MD Ot Z11.2 ENCOUNTER FOR SCREENING FOR OTHER BACTER 04/26/2016 KUSHAL RIOS MD Ot G89.4 CHRONIC PAIN SYNDROME 04/26/2016 KUSAHL RIOS MD Ot M51.36 OTHER INTERVERTEBRAL DISC DEGENERATION, 04/26/2016 KUSHAL RIOS MD Ot M54.5 LOW BACK PAIN 04/29/2016 KUSHAL RIOS MD Ot G89.4 CHRONIC PAIN SYNDROME 04/29/2016 KUSHAL RIOS MD Ot M51.36 OTHER INTERVERTEBRAL DISC DEGENERATION, 04/29/2016 KUSHAL RIOS MD Ot M54.5 LOW BACK PAIN 05/02/2016 KUSHAL RIOS MD Ot G89.4 CHRONIC PAIN SYNDROME 05/02/2016 KUSHAL RIOS MD Ot M51.36 OTHER INTERVERTEBRAL DISC DEGENERATION, 05/02/2016 KUSHAL RIOS MD Ot M54.5 LOW BACK PAIN 02/05/2017 SHAISTA WILSON Ot E03.9 HYPOTHYROIDISM, UNSPECIFIED 02/05/2017 SHAISTA WILSON Ot E11.9 TYPE 2 DIABETES MELLITUS WITHOUT COMPLIC 02/05/2017 SHAISTA WILSON Ot F17.210 NICOTINE DEPENDENCE, CIGARETTES, UNCOMPL 02/05/2017 SHAISTA WILSON Ot F32.9 MAJOR DEPRESSIVE DISORDER, SINGLE EPISOD 02/05/2017 SHAISTA WILSON Ot F41.9 ANXIETY DISORDER, UNSPECIFIED 02/05/2017 SHAISTA WILSON Ot J42 UNSPECIFIED CHRONIC BRONCHITIS 02/05/2017 SHAISTA WILSON Ot K21.9 GASTRO-ESOPHAGEAL REFLUX DISEASE WITHOUT 02/05/2017 SHAISTA WILSON Ot M17.12 UNILATERAL PRIMARY OSTEOARTHRITIS, LEFT 02/05/2017 SHAISTA WILSON Ot M25.562 PAIN IN LEFT KNEE 02/05/2017 SHAISTA WILSON Ot S80.02XA CONTUSION OF LEFT KNEE, INITIAL ENCOUNTE 02/05/2017 SHAISTA WILSON Ot W22.09XA STRIKING AGAINST OTHER STATIONARY OBJECT 02/05/2017 SHAISTA WILSON Ot Z87.01 PERSONAL HISTORY OF PNEUMONIA (RECURRENT 02/05/2017 SHAISTA WILSON Ot Z90.710 ACQUIRED ABSENCE OF BOTH CERVIX AND UTER 02/05/2017 SHAISTA WILSON Ot Z93.0 TRACHEOSTOMY STATUS 02/25/2017 GILLIAN ANDERSON, RICHAR He Ot J98.9 RESPIRATORY DISORDER, UNSPECIFIED 02/25/2017 JEREMIAS HERNANDEZ MD Ot E03.9 HYPOTHYROIDISM, UNSPECIFIED 02/25/2017 JEREMIAS HERNANDEZ MD Ot E11.9 TYPE 2 DIABETES MELLITUS WITHOUT COMPLIC 02/25/2017 JEREMIAS HERNANDEZ MD Ot F17.210 NICOTINE DEPENDENCE, CIGARETTES, UNCOMPL 02/25/2017 JEREMIAS HERNANDEZ MD Ot F32.9 MAJOR DEPRESSIVE DISORDER, SINGLE EPISOD 02/25/2017 JEREMIAS HERNANDEZ MD Ot F41.9 ANXIETY DISORDER, UNSPECIFIED 02/25/2017 JEREMIAS HERNANDEZ MD Ot J20.9 ACUTE BRONCHITIS, UNSPECIFIED 02/25/2017 JEREMIAS HERNANDEZ MD Ot K21.9 GASTRO-ESOPHAGEAL REFLUX DISEASE WITHOUT 02/25/2017 JEREMIAS HERNANDEZ MD Ot R06.02 SHORTNESS OF BREATH 02/26/2017 RICHAR FRENCH MD Ot J98.9 RESPIRATORY DISORDER, UNSPECIFIED 02/26/2017 JEREMIAS HERNANDEZ MD Ot E03.9 HYPOTHYROIDISM, UNSPECIFIED 02/26/2017 JEREMIAS HERNANDEZ MD Ot E11.9 TYPE 2 DIABETES MELLITUS WITHOUT COMPLIC 02/26/2017 JEREMIAS HERNANDEZ MD Ot F17.210 NICOTINE DEPENDENCE, CIGARETTES, UNCOMPL 02/26/2017 JEREMIAS HERNANDEZ MD Ot F32.9 MAJOR DEPRESSIVE DISORDER, SINGLE EPISOD 02/26/2017 JEREMIAS HERNANDEZ MD Ot F41.9 ANXIETY DISORDER, UNSPECIFIED 02/26/2017 JEREMIAS HERNANDEZ MD, Ot J20.9 ACUTE BRONCHITIS, UNSPECIFIED 02/26/2017 JEREMIAS HERNANDEZ MD, Ot K21.9 GASTRO-ESOPHAGEAL REFLUX DISEASE WITHOUT 02/26/2017 JEREMIAS HERNANDEZ MD Ot R06.02 SHORTNESS OF BREATH 03/12/2017 Ot 722.52 LUMB/ LUMBOSAC DISC DEGEN 03/12/2017 OMAYRA ANDERSON, HEMA Perry Ot 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 03/12/2017 KUSHAL RIOS MD Ot 278.00 OBESITY, NOS 03/12/2017 KUSHAL RIOS MD Ot 721.3 LUMBOSACRAL SPONDYLOSIS 03/12/2017 KUSHAL RIOS MD Ot 722.52 LUMB/LUMBOSAC DISC DEGEN 03/12/2017 KUSHAL RIOS MD Ot 729.1 MYALGIA AND MYOSITIS NOS 03/12/2017 KUSHAL RIOS MD, Ot V58.69 OTH MED,LT,CURRENT USE 03/12/2017 KUSHAL RIOS MD Ot V85.36 BODY MASS INDEX 36.0-36.9, ADULT 03/12/2017 KUSHAL RIOS MD Ot 278.00 OBESITY, NOS 03/12/2017 KUSHAL RIOS MD Ot 721.3 LUMBOSACRAL SPONDYLOSIS 03/12/2017 KUSHAL RIOS MD, Ot 722.52 LUMB/LUMBOSAC DISC DEGEN 03/12/2017 KUSHAL RIOS MD Ot 724.6 DISORDERS OF SACRUM 03/12/2017 KUSHAL RIOS MD Ot 729.1 MYALGIA AND MYOSITIS NOS 03/12/2017 KUSHAL RIOS MD, Ot V58.69 OTH MED,LT,CURRENT USE 03/12/2017 KUSHAL RIOS MD Ot V85.38 BODY MASS INDEX 38.0-38.9, ADULT 03/12/2017 KUSHAL RIOS MD Ot 724.6 DISORDERS OF SACRUM 03/12/2017 KUSHAL RIOS MD Ot V64.1 NO PROC/CONTRAINDICATION 03/12/2017 Ot 789.01 ABDOMINAL PAIN, RIGHT UPPER QUADRANT 03/12/2017 Ot 575.8 DIS OF GALLBLADDER NEC 03/12/2017 Ot V72.63 PRE- PROCEDURAL LABORATORY EXAMINATION 03/12/2017 Ot V74.8 SCREEN- BACTERIAL DIS NEC 03/12/2017 MADL, RICARDO L NEEDLE VALVE OPERATOR Ot 724.2 LUMBAGO 03/12/2017 AURA PEPE APRN Ot 611.71 MASTODYNIA 03/12/2017 KUSHAL RISO MD Ot M54.5 LOW BACK PAIN 03/27/2017 MADL, RICARDO L NEEDLE VALVE OPERATOR Ot J32.8 OTHER CHRONIC SINUSITIS 03/27/2017 MADL, RICARDO L NEEDLE VALVE OPERATOR Ot R42 DIZZINESS AND GIDDINESS 04/08/2017 MADL, RICARDO L NEEDLE VALVE OPERATOR Ot J32.8 OTHER CHRONIC SINUSITIS 04/08/2017 MADL, RICARDO L NEEDLE VALVE OPERATOR Ot R42 DIZZINESS AND GIDDINESS 04/08/2017 EKATERINA MADSEN DO Ot M51.36 OTHER INTERVERTEBRAL DISC DEGENERATION, 04/08/2017 EKATERINA MADSEN DO Ot Z96.89 PRESENCE OF OTHER SPECIFIED FUNCTIONAL I 04/10/2017 Ot 722.52 LUMB/ LUMBOSAC DISC DEGEN 04/10/2017 HEMA CUTLER MD Ot 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 04/10/2017 KUSHAL RIOS MD Ot 278.00 OBESITY, NOS 04/10/2017 KUSHAL RIOS MD Ot 721.3 LUMBOSACRAL SPONDYLOSIS 04/10/2017 KUSHAL RIOS MD Ot 722.52 LUMB/LUMBOSAC DISC DEGEN 04/10/2017 KUSHAL RIOS MD Ot 729.1 MYALGIA AND MYOSITIS NOS 04/10/2017 KUSHAL RIOS MD Ot V58.69 OTH MED,LT,CURRENT USE 04/10/2017 KUSHAL RIOS MD Ot V85.36 BODY MASS INDEX 36.0-36.9, ADULT 04/10/2017 KUSHAL RIOS MD Ot 278.00 OBESITY, NOS 04/10/2017 KUSHAL RIOS MD Ot 721.3 LUMBOSACRAL SPONDYLOSIS 04/10/2017 KUSHAL RIOS MD Ot 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/LUMBOSAC DISC DEGEN 04/10/2017 KUSHAL RIOS MD Ot 724.6 DISORDERS OF SACRUM 04/10/2017 KUSHAL RIOS MD Ot 729.1 MYALGIA AND MYOSITIS NOS 04/10/2017 KUSHAL RIOS MD Ot V58.69 OTH MED,LT,CURRENT USE 04/10/2017 KUSHAL RIOS MD Ot V85.38 BODY MASS INDEX 38.0-38.9, ADULT 04/10/2017 KUSHAL RIOS MD Ot 724.6 DISORDERS OF SACRUM 04/10/2017 KUSHAL RIOS MD Ot V64.1 NO PROC/CONTRAINDICATION 04/10/2017 Ot 789.01 ABDOMINAL PAIN, RIGHT UPPER QUADRANT 04/10/2017 Ot 575.8 DIS OF GALLBLADDER NEC 04/10/2017 Ot V72.63 PRE- PROCEDURAL LABORATORY EXAMINATION 04/10/2017 Ot V74.8 SCREEN- BACTERIAL DIS NEC 04/10/2017 RICARDO ROGERS NEEDLE VALVE OPERATOR Ot 724.2 LUMBAGO 04/10/2017 AURA PEPE APRN Ot 611.71 MASTODYNIA 04/10/2017 KUSHAL RIOS MD Ot M54.5 LOW BACK PAIN 04/10/2017 RICARDO ROGERSP Ot J32.8 OTHER CHRONIC SINUSITIS 04/10/2017 RICARDO ROGERSP Ot R42 DIZZINESS AND GIDDINESS 04/10/2017 EKATERINA MADSEN DO Ot M51.36 OTHER INTERVERTEBRAL DISC DEGENERATION, 04/10/2017 EKATERINA MADSEN DO Ot Z96.89 PRESENCE OF OTHER SPECIFIED FUNCTIONAL I 04/15/2017 EKATERINA MADSEN DO Ot M54.16 RADICULOPATHY, LUMBAR REGION 04/17/2017 EKATERINA MADSEN DO Ot M54.16 RADICULOPATHY, LUMBAR REGION 04/25/2017 EKATERINA MADSEN DO Ot M54.16 RADICULOPATHY, LUMBAR REGION Procedures Code Description [place] [address] INDIV PSYTX 45/50 MIN 03/12/2012 51863 CULTURE WOUND (AEROBIC) 03/12/2012 23360 ROUTINE VENIPUNCTURE 03/25/2012 09760 ESR/SED RATE 03/25/2012 23736 CBC 03/25/2012 93891 CMP 03/25/2012 39009 LIPID PANEL 03/25/2012 1541030 GFR CALC (RESULT ONLY) 03/25/2012 66883 CRP 03/26/2012 44262 VITAMIN D 25-HYDROXY (D2,D3 , TOTAL) 03/26/2012 27451 TSH 03/26/2012 12317 URIC ACID 03/26/2012 56088 ASO 03/26/2012 37760 RA FACTOR 03/26/2012 ANAANA SANFORD ANALYZER (SCREEN) 03/26/2012 06125 INDIV PSYTX 45/50 MIN 03/27/2012 01521 INDIV PSYTX 45/50 MIN 04/08/2012 74218 INDIV PSYTX 45/50 MIN 04/22/2012 87368 XRAY CHEST 2 VIEW 06/30/2012 77714 XRAY LUMBAR SPINE 2 OR 3 VIEWS 07/16/2012 19509 MRI SPINE (LUMBAR) W & W/O CONTRAST 07/16/2012 04737 PSYCH PHARM MGMT 07/17/2012 89143 PSYTX PT&/FAMILY 45 MINUTES 07/28/2012 69764 ROUTINE VENIPUNCTURE 08/26/2012 97405 URINE DRUG SCREEN (IN-HOUSE ) 08/26/2012 46927 LIVER PANEL (LFT) 08/26/2012 41017 T4 FREE 08/27/2012 14426 TSH 08/27/2012 71142 HEPATITIS PROFILE 08/27/2012 29516 ROUTINE VENIPUNCTURE 10/13/2012 52241 URINE DRUG SCREEN (IN-HOUSE ) 10/13/2012 13254 VITAMIN D 25-HYDROXY (D2,D3 , TOTAL) 10/13/2012 74334 TSH 10/13/2012 84723 T4 FREE 10/13/2012 60403 URINE DRUG SCREEN (IN-HOUSE ) 11/10/2012 73516 MRI SPINE (LUMBAR) W/O CONTRAST 11/13/2012 56458 PSYTX PT&/FAMILY 45 MINUTES 12/31/2012 75392 ROUTINE VENIPUNCTURE 02/12/2013 22783 TSH 02/12/2013 86112 T4 FREE 02/12/2013 70999 PSYTX PT&/FAMILY 45 MINUTES 03/16/2013 91839 URINE DRUG SCREEN (IN-HOUSE ) 03/16/2013 75448 PSYTX PT&/FAMILY 45 MINUTES 05/27/2013 35761 ROUTINE VENIPUNCTURE 07/06/2013 60589 URINE DRUG SCREEN (IN-HOUSE ) 07/06/2013 35535 T4 FREE 07/06/2013 61534 TSH 07/06/2013 23866 ROUTINE VENIPUNCTURE 10/06/2013 [id number] GFR CALC (RESULT ONLY) 10/06/2013 02483 CMP 10/06/2013 90334 TSH 10/06/2013 24476 ROUTINE VENIPUNCTURE 11/22/2013 16548 CBC 11/22/2013 57609 I/D SIMPLE ABSCESS 11/24/2013 33173 PSYTX PT&/FAMILY 45 MINUTES 12/02/2013 16742 ROUTINE VENIPUNCTURE 01/05/2014 [id number] GFR CALC (RESULT ONLY) 01/05/2014 40214 BMP 01/05/2014 56301 TSH 01/05/2014 56906 PSYTX PT&/FAMILY 45 MINUTES 02/03/2014 21288 PSYTX PT&/FAMILY 45 MINUTES 04/05/2014 06285 ROUTINE VENIPUNCTURE 06/20/2014 [id number] GFR CALC (RESULT ONLY) 06/20/2014 04510 CMP 06/20/2014 05422 TSH 06/20/2014 79280 HIDA SCAN 06/21/2014 00234 PSYTX PT&/FAMILY 45 MINUTES 09/02/2014 Results Test Result Range Complete blood count (CBC) with automated white blood cell (WBC) differential - 04/16/16 12:20 Blood leukocytes automated count (number/volume) 9.0 10*3/uL 4.3-11.0 Blood erythrocytes automated count (number/volume) 4.26 10*6/uL 4.35-5.85 Venous blood hemoglobin measurement (mass/volume) 13.4 g/dL 11.5-16.0 Blood hematocrit (volume fraction) 40 % 35-52 Automated erythrocyte mean corpuscular volume 94 [foz_us] 80-99 Automated erythrocyte mean corpuscular hemoglobin (mass per erythrocyte) 32 pg 25-34 Automated erythrocyte mean corpuscular hemoglobin concentration measurement ( mass/volume) 34 g/dL 32-36 Automated erythrocyte distribution width ratio 13.7 % 10.0-14.5 Automated blood platelet count (count/volume) 312 10*3/uL 130-400 Automated blood platelet mean volume measurement 9.7 [foz_us] 7.4-10.4 Automated blood neutrophils/100 leukocytes 63 % 42-75 Automated blood lymphocytes/100 leukocytes 21 % 12-44 Blood monocytes/100 leukocytes 9 % 0-12 Automated blood eosinophils/100 leukocytes 6 % 0-10 Automated blood basophils/100 leukocytes 1 % 0-10 Blood neutrophils automated count (number/volume) 5.7 10*3 1.8-7.8 Blood lymphocytes automated count (number/volume) 1.9 10*3 1.0-4.0 Blood monocytes automated count (number/volume) 0.8 10*3 0.0-1.0 Automated eosinophil count 0.5 10*3/uL 0.0-0.3 Automated blood basophil count (count/volume) 0.1 10*3/uL 0.0-0.1 Comprehensive metabolic panel - 04/16/16 12:20 Serum or plasma sodium measurement (moles/volume) 137 mmol/L 135-145 Serum or plasma potassium measurement (moles/volume) 4.3 mmol/L 3.6-5.0 Serum or plasma chloride measurement (moles/volume) 101 mmol/L 98-107 Carbon dioxide 25 mmol/L 21-32 Serum or plasma anion gap determination (moles/volume) 11 mmol/L 5-14 Serum or plasma urea nitrogen measurement (mass/volume) 7 mg/dL 7-18 Serum or plasma creatinine measurement (mass/volume) 0.73 mg/dL 0.60-1.30 Serum or plasma urea nitrogen/creatinine mass ratio 10 NRG Serum or plasma creatinine measurement with calculation of estimated glomerular filtration rate > NRG Serum or plasma glucose measurement (mass/volume) 102 mg/dL 70-105 Serum or plasma calcium measurement (mass/volume) 9.6 mg/dL 8.5-10.1 Serum or plasma total bilirubin measurement (mass/volume) 0.5 mg/dL 0.1-1.0 Serum or plasma alkaline phosphatase measurement (enzymatic activity/volume) 89 U/L 40-136 Serum or plasma aspartate aminotransferase measurement (enzymatic activity/ volume) 65 U/L 5-34 Serum or plasma alanine aminotransferase measurement (enzymatic activity/volume ) 95 U/L 0-55 Serum or plasma protein measurement (mass/volume) 7.3 g/dL 6.4-8.2 Serum or plasma albumin measurement (mass/volume) 4.4 g/dL 3.2-4.5 Serum or plasma C reactive protein measurement (mass/volume) - 04/16/16 12:20 Serum or plasma C reactive protein measurement (mass/volume) 2.24 mg /dL 0.00-0.50 Methicillin resistant Staphylococcus aureus (MRSA) screening culture - 12:45 Methicillin resistant Staphylococcus aureus (MRSA) screening culture NEG NRG Encounters ACCT No. Visit Date/Time Discharge Status Pt. Type Provider Facility Loc./Unit Complaint [id number] 09/02/2014 12:56:00 09/02/2014 23:59:59 CLS Outpatient CHRISTIANO CARRERA PSYD [id number] 08/23/2014 11:03:00 08/23/2014 23:59:59 CLS Outpatient MADL GENERATION ENGINEERNOEMYRICARDO L [id number] 07/18/2014 13:57:00 07/18/2014 23:59:59 CLS Outpatient BON PORTER DO [id number] 06/20/2014 13:39:00 06/20/2014 23:59:59 CLS Outpatient MADL GENERATION ENGINEER, RICARDO L [id number] 05/19/2014 10:54:00 05/19/2014 23:59:59 CLS Outpatient MADL GENERATION ENGINEER, RICARDO L [id number] 04/19/2014 13:18:00 04/19/2014 23:59:59 CLS Outpatient MADL GENERATION ENGINEER, RICARDO L [id number] 04/05/2014 12:43:00 04/05/2014 23:59:59 CLS Outpatient CHRISTIANO CARRERA PSYD [id number] 03/09/2014 10:36:00 03/09/2014 23:59:59 CLS Outpatient MADL GENERATION ENGINEERNOEMY McclureRICARDO L [id number] 02/07/2014 13:08:00 02/07/2014 23:59:59 CLS Outpatient MADL GENERATION ENGINEER, RICARDO L [id number] 02/03/2014 12:38:00 02/03/2014 23:59:59 CLS Outpatient CHRISTIANO CARRERA PSYD [id number] 01/11/2014 17:20:00 01/11/2014 23:59:59 CLS Outpatient BON PORTER DO [id number] 01/05/2014 13:39:00 01/05/2014 23:59:59 CLS Outpatient MADL GENERATION ENGINEER, RICARDO L [id number] 12/08/2013 10:37:00 12/08/2013 23:59:59 CLS Outpatient MADL GENERATION ENGINEER, RICARDO L [id number] 12/02/2013 14:47:00 12/02/2013 23:59:59 CLS Outpatient CHRISTIANO CARRERA PSYD [id number] 11/26/2013 10:08:00 11/26/2013 23:59:59 CLS Outpatient MADL GENERATION ENGINEER, RICARDO L [id number] 11/24/2013 11:20:00 11/24/2013 23:59:59 CLS Outpatient MADL GENERATION ENGINEER, RICARDO L [id number] 11/22/2013 10:08:00 11/22/2013 23:59:59 CLS Outpatient MADL GENERATION ENGINEER, RICARDO L [id number] 11/22/2013 10:08:00 11/22/2013 23:59:59 CLS Outpatient MADL GENERATION ENGINEER, RICARDO L [id number] 11/17/2013 15:27:00 11/17/2013 23:59:59 CLS Outpatient MADL GENERATION ENGINEER, RICARDO L [id number] 11/05/2013 08:48:00 11/05/2013 23:59:59 CLS Outpatient MADL GENERATION ENGINEER, RICARDO L [id number] 10/06/2013 10:59:00 10/06/2013 23:59:59 CLS Outpatient MADL GENERATION ENGINEER, RICARDO L [id number] 09/06/2013 11:01:00 09/06/2013 23:59:59 CLS Outpatient RUBEN HILL APRN [id number] 07/06/2013 10:37:00 07/06/2013 23:59:59 CLS Outpatient HEMA CUTLER MD [id number] 05/24/2013 12:37:00 05/24/2013 23:59:59 CLS Outpatient CHRISTIANO CARRERA PSYD [id number] 04/28/2013 13:39:00 04/28/2013 23:59:59 CLS Outpatient MEGAN MENCHACA APRN [id number] 04/05/2013 08:48:00 04/05/2013 23:59:59 CLS Outpatient RUBEN HILL APRN [id number] 03/15/2013 13:49:00 03/15/2013 23:59:59 CLS Outpatient CHRISTIANO CARRERA PSYD [id number] 02/12/2013 14:55:00 02/12/2013 23:59:59 CLS Outpatient HEMA CUTLER MD [id number] 02/01/2013 10:24:00 02/01/2013 23:59:59 CLS Outpatient RUBEN HILL APRN [id number] 07/27/2012 10:48:00 07/27/2012 23:59:59 CLS Outpatient CHRISTIANO CARRERA PSYD [id number] 07/16/2012 11:37:00 07/16/2012 23:59:59 CLS Outpatient BON PORTER DO [id number] 06/30/2012 15:34:00 06/30/2012 23:59:59 CLS Outpatient BON PORTER DO [id number] 06/16/2012 09:22:00 06/16/2012 23:59:59 CLS Outpatient [id number] 04/22/2012 09:05:00 04/22/2012 23:59:59 CLS Outpatient CHRISTIANO CARRERA PSYD [id number] 03/12/2012 13:41:00 03/12/2012 23:59:59 CLS Outpatient CHRISTIANO CARRERA PSYD [id number] 12/31/2012 12:35:00 Document Registration [id number] 11/19/2012 00:00:00 Document Registration [id number] 11/10/2012 10:04:00 Document Registration [id number] 10/13/2012 14:49:00 Document Registration [id number] 10/05/2012 00:00:00 Document Registration [id number] 09/09/2012 00:00:00 Document Registration [id number] 09/07/2012 00:00:00 Document Registration [id number] 08/26/2012 13:34:00 Document Registration [id number] 08/20/2012 11:06:00 Document Registration [id number] 04/23/2017 11:38:00 04/23/2017 23:59:59 CLS Outpatient RICARDO ROGERS NEEDLE VALVE OPERATOR [facility] RAD NEAR SYNCOPE [id number] 04/10/2017 13:32:00 04/10/2017 23:59:59 CLS Outpatient EKATERINA MADSEN DO [facility] CARD M54.16 LUMBAR RADICULOPATHY [id number] 03/21/2017 10:45:00 03/21/2017 23:59:59 CLS Outpatient EKATERINA MADSEN DO [facility] RAD M54.16 [id number] 03/21/2017 10:41:00 03/21/2017 23:59:59 CLS Outpatient RICARDO ROGERS NEEDLE VALVE OPERATOR [facility] RAD DIZZINESS [id number] 02/25/2017 09:05:00 02/25/2017 11:48:00 DIS Emergency JEREMIAS HERNANDEZ MD [facility] ER BREATHING DIFFICULTIES [id number] 02/24/2017 23:18:00 02/25/2017 00:02:00 DIS Emergency RICHAR FRENCH MD [facility] ER POSS BRONCHITIS [id number] 02/05/2017 19:29:00 02/05/2017 22:02:00 DIS Emergency SHAISTA WILSON [facility] ER LEFT KNEE INJ [id number] 04/26/2016 06:00:00 04/26/2016 11:00:00 DIS Outpatient KUSHAL RIOS MD [facility] SDC CPS [id number] 04/23/2016 12:25:00 04/23/2016 12:58:00 DIS Outpatient KUSHAL RIOS MD [facility] PREOP CPS [id number] 04/16/2016 12:04:00 04/16/2016 15:07:00 DIS Emergency SHAISTA WILSON [facility] ER COUGH/CHEST CONGESTION [id number] 12/25/2015 22:30:00 12/25/2015 22:56:00 DIS Emergency QIANA MARTINEZ MD [facility] ER BACK PAIN,LEG PAIN [id number] 12/12/2015 15:19:00 12/12/2015 16:39:00 DIS Emergency JUAN ANDERSON, QIANA Snell [facility] ER BACK PAIN [id number] 11/14/2015 09:03:00 11/14/2015 23:59:59 CLS Outpatient KUSHAL RIOS MD [facility] RAD LOW BACK PAIN [id number] 11/14/2015 00:13:00 11/14/2015 01:47:00 DIS Emergency QIANA MARTINEZ MD [facility] ER PAIN IN LOWER BACK [id number] 11/10/2015 08:32:00 11/10/2015 08:40:00 DIS Emergency JEREMIAS HERNANDEZ MD [facility] ER STAPLE REMOVAL [id number] 11/03/2015 19:34:00 11/03/2015 22:01:00 DIS Emergency SHAISTA WILSON [facility] ER HEAD INJ/BLEEDING [id number] 10/23/2015 13:49:00 10/23/2015 15:00:00 DIS Emergency HECTOR MONSIVAIS GENERATION ENGINEER [facility] ER BACK PAIN [id number] 10/17/2015 18:58:00 10/17/2015 20:51:00 DIS Emergency SHAISTA WILSON [facility] ER LEG WEAKNESS [id number] 10/13/2015 21:56:00 10/13/2015 23:38:00 DIS Emergency RIANNA KOENIG MD [facility] ER MID-LOWER BACK PAIN,BILAT HIP PAIN [id number] 09/14/2015 11:40:00 09/14/2015 15:50:00 DIS Outpatient RIO CASE DO [facility] SDC CHANGE IN BOWEL MOVEMENTS [id number] 09/06/2015 05:37:00 09/06/2015 10:28:00 DIS Outpatient RIO CASE DO [facility] PREOP CHANGE IN BOWEL MOVEMENTS [id number] 12/12/2014 08:52:00 12/12/2014 23:59:59 CLS Outpatient AURA PEPE GENERATION ENGINEER [facility] RAD BI BREAST PAIN [id number] 11/09/2014 10:08:00 11/09/2014 23:59:59 CLS Outpatient RICARDO ROGERS [facility] RAD LUMBAGO [id number] 09/23/2014 09:17:00 09/23/2014 10:53:00 DIS Outpatient KUSHAL RIOS MD [facility] CARD SIJD [id number] 06/01/2014 12:46:00 06/01/2014 16:52:00 DIS Emergency SHAISTA WILSON [facility] ER RIGHT SIDE PAIN [id number] 05/09/2014 15:45:00 05/09/2014 23:59:59 CLS Preadmit KUSHAL RIOS MD [facility] CARD SIJD [id number] 01/28/2014 09:31:00 01/28/2014 11:23:00 DIS Outpatient KUSHAL RIOS MD [facility] CARD SIJD [id number] 11/19/2013 12:56:00 11/20/2013 12:30:00 DIS Inpatient PORTER BON Santana [facility] 4TH ABSCESS AND CELLULITIS OF LEFT AXILLA [id number] 11/19/2013 09:14:00 11/19/2013 23:59:59 CLS Outpatient KUSHAL RIOS MD [facility] CARD SACROILLIAC JOINT DISFUNCTION [id number] 10/25/2013 12:13:00 10/25/2013 23:59:59 CLS Outpatient KUSHAL RIOS MD [facility] CARD SIJ DSYFUNCTION [id number] 10/12/2013 18:38:00 10/12/2013 19:15:00 DIS Emergency HECTOR MONSIVAIS APRN [facility] ER POSS ABSCESS [id number] 09/27/2013 12:53:00 09/27/2013 14:08:00 DIS Outpatient KUSHAL RIOS MD [facility] CARD SACROILLIAC JOINT DSYFUNCTION [id number] 08/30/2013 13:43:00 08/30/2013 14:54:00 DIS Outpatient KUSHAL RIOS MD [facility] CARD DDD LUMBAR [id number] 07/23/2013 06:47:00 07/23/2013 23:59:59 CLS Outpatient KUSHAL RIOS MD [facility] CARD LUMBAR SPONDYLOSIS [id number] 07/16/2013 08:24:00 07/16/2013 09:16:00 DIS Outpatient KUSHAL RIOS MD [facility] CARD LUMBAR SPONDYLOSIS [id number] 05/22/2013 09:31:00 05/22/2013 11:27:00 DIS Emergency MARY ANDERSON, JEREMIAS Kemp [facility] ER FLU LIKE SYM [id number] 02/07/2013 15:16:00 02/07/2013 18:55:00 DIS Emergency ARYA ANDERSON, RIANNA Clay [facility] ER SOA [id number] 11/17/2012 10:22:00 11/17/2012 23:59:59 CLS Outpatient OMAYRA ANDERSON, HEMA Perry [facility] RAD ACUTE STOOL INCONTINENCE [id number] 11/06/2012 10:09:00 11/06/2012 15:59:00 DIS Emergency EVON VERAS MD [facility] ER UTI SYMPTOMS [id number] 11/05/2012 13:11:00 11/05/2012 15:54:00 DIS Emergency MARY ANDERSON, JEREMIAS Kemp [facility] ER LEAKING STOOL AND URINE BACK PAIN [id number] 11/03/2012 12:35:00 11/03/2012 15:10:00 DIS Emergency SHAISTA WILSON [facility] ER RIGHT LEG SPIDER BITE/ ABSCESS DIARRHEA [id number] 05/31/2015 18:03:00 Document Registration [id number] 09/23/2014 09:18:00 Document Registration [id number] 09/23/2014 09:17:00 Document Registration [id number] 08/01/2014 08:02:00 Document Registration [id number] 07/22/2014 11:24:00 Document Registration [id number] 01/13/2012 19:06:00 Document Registration
[2017-05-10] MEDS ORDERED: HYDR-700 (21:05)
[2017-05-10] MEDS ORDERED: BREX2TAB (21:05)
[2017-05-10] MEDS ORDERED: NABU500T (21:05)
[2017-05-10] MEDS ORDERED: LISI2.5T (21:05)
[2017-05-10] MEDS ORDERED: VORT20TA (21:05)
[2017-05-10] MEDS ORDERED: METF500T8 (21:05)
[2017-05-10] MEDS ORDERED: NS IV 1000 ML 1,000 ML IV ONE (21:42)
[2017-05-10] MEDS ORDERED: FAMOTIDINE 20MG/2ML IV (PEPCID) IVP ONE (21:45)
[2017-05-10] MEDS ORDERED: LIDOCAINE 2% VISCOUS 15 ML UDC PO ONE (21:45)
[2017-05-10] MEDS ORDERED: ANTACID SUSP 30 ML UDC (MYLANTA) PO ONE (21:45)
[2017-05-10] MEDS ORDERED: ONDANSETRON 4 MG/2 ML (SDV) Z0FRAN IVP ONE (21:45)
[2017-05-10 22:03] LABS: BASOPHILS # (AUTO) 0.1 10^3/uL (0.0-0.1); BASOPHILS % (AUTO) 1 % (0-10); BILIRUBIN,URINE NEGATIVE (NEGATIVE); CLARITY,URINE SLIGHTLY CLOUDY; COLOR,URINE YELLOW; EOSINOPHILS # (AUTO) 0.4 10^3/uL (0.0-0.3); EOSINOPHILS % (AUTO) 3 % (0-10); GLUCOSE, URINE (UA) NEGATIVE (NEGATIVE); HEMATOCRIT 38 % (35-52); HEMOGLOBIN 12.9 G/DL (11.5-16.0); KETONES,URINE NEGATIVE (NEGATIVE); LEUKOCYTE ESTERASE ,URINE 1+ (NEGATIVE); LYMPHOCYTES # (AUTO) 3.4 X 10^3 (1.0-4.0); LYMPHOCYTES % (AUTO) 30 % (12-44); MEAN CORPUSCULAR HEMOGLOBIN 31 PG (25-34); MEAN CORPUSCULAR HGB CONC 34 G/DL (32-36); MEAN CORPUSCULAR VOLUME 93 FL (80-99); MEAN PLATELET VOLUME 9.4 FL (7.4-10.4); MONOCYTES % (AUTO) 8 % (0-12); NEUTROPHILS # (AUTO) 6.8 X 10^3 (1.8-7.8); NEUTROPHILS % (AUTO) 58 % (42-75); NITRITE,URINE NEGATIVE (NEGATIVE); PH,URINE 8 (5-9); PLATELET COUNT 330 10^3/uL (130-400); PROTEIN,URINE NEGATIVE (NEGATIVE); RED BLOOD COUNT 4.11 10^6/uL (4.35-5.85); UROBILINOGEN,URINE 4 MG/DL (NORMAL); WHITE BLOOD COUNT 11.6 10^3/uL (4.3-11.0)
[2017-05-10 22:10] LABS: BACTERIA,URINE MODERATE /HPF; WBC,URINE 0-2 /HPF
[2017-05-10 22:23] LABS: ALANINE AMINOTRANSFERASE 31 U/L (0-55); ALBUMIN 4.2 GM/DL (3.2-4.5); ALKALINE PHOSPHATASE 69 U/L (40-136); BILIRUBIN,TOTAL 0.6 MG/DL (0.1-1.0); BUN/CREATININE RATIO 13; CALCIUM 9.5 MG/DL (8.5-10.1); CARBON DIOXIDE 26 MMOL/L (21-32); CHLORIDE 103 MMOL/L (98-107); CREATININE SERUM 0.84 MG/DL (0.60-1.30); GFR ESTIMATED > 60; GLUCOSE 99 MG/DL (70-105); LIPASE 42 U/L (8-78); POTASSIUM 3.6 MMOL/L (3.6-5.0); SODIUM 141 MMOL/L (135-145); TOTAL PROTEIN 7.4 GM/DL (6.4-8.2)
[2017-05-10] MEDS ORDERED: RX-ONDANSETRON 4 MG ODT (ZOFRAN) PPK #4 SL STA (22:42)
[2017-05-10] MEDS ORDERED: KETOROLAC 30 MG/ML VIAL IVP ONE (22:45)
--- NOTE | 2017-05-10 22:46 | ED Abdominal Pain ---
General Chief Complaint: Abdominal/GI Problems Stated Complaint: STOMACH PAIN UPPER RIGHT SIDE Nursing Triage Note: RUQ ABDOMINAL PAIN, NAUSEA, CONSTIPATION, DIARRHEA X1 WEEK Sepsis Screen: No Definite Risk Source of Information: Patient Exam Limitations: No Limitations History of Present Illness Time Seen By Provider: 21:36 Initial Comments This 41-year-old woman presents to the emergency room with right upper quadrant pain. It's been constant in the same location for one week. She has had nausea without vomiting. She alternates between diarrhea and constipation. She is status post cholecystectomy. Pain was more positional before today but now has become more constant. She states her sinuses have been draining and she feels dry. She is afebrile. Allergies and Home Medications Allergies Coded Allergies: methocarbamol (Unverified Allergy, Unknown, 10/13/15) fentanyl (Verified Adverse Reaction, Unknown, 11/19/13) Home Medications Albuterol/Ipratropium 4 Gm Aero, 1 PUFF IH QID, (Reported) Alprazolam 1 Mg Tab.rapdis, 1.5 MG PO TID, (Reported) TAKE 1 1/2 (1MG) TABLET Brexpiprazole 2 Mg Tablet, (Reported) Diclofenac Sodium 75 Mg Tablet.dr, 75 MG PO BID, (Reported) Furosemide 20 Mg Tablet, 20 MG PO DAILY PRN for swelling, (Reported) Hydroxyzine HCl 25 Mg Tablet, (Reported) Levothyroxine Sodium 150 Mcg Tablet, 150 MCG PO DAILY, (Reported) Lisinopril 2.5 Mg Tablet, (Reported) Metformin HCl 500 Mg Tab.er.24h, (Reported) Nabumetone 500 Mg Tablet, (Reported) Potassium Chloride 10 Meq Tablet.er, 10 MEQ PO DAILY PRN for take with lasix, ( Reported) Prednisone 20 Mg Tab, 40 MG PO DAILY, #10 Ref 0 Prescribed by: JEREMIAS HERNANDEZ on 02/25/17 1142 Pregabalin 75 Mg Capsule, 75 MG PO BID, (Reported) Tizanidine HCl 4 Mg Tablet, 8 TAB PO TID, (Reported) take 2 (4mg) tabs Trazodone HCl 100 Mg Tablet, 100 MG PO HS, (Reported) Vortioxetine Hydrobromide 10 Mg Tablet, 10 MG PO DAILY, (Reported) Vortioxetine Hydrobromide 20 Mg Tablet, (Reported) Review of Systems Constitutional: no symptoms reported EENTM: No Symptoms Reported Respiratory: No Symptoms Reported Cardiovascular: No Symptoms Reported Gastrointestinal: See HPI Genitourinary: No Symptoms Reported Musculoskeletal: no symptoms reported Skin: no symptoms reported Psychiatric/Neurological: No Symptoms Reported Endocrine: No Symptoms Reported Hematologic/Lymphatic: No Symptoms Reported Past Vatuunk-Byhttv-Dfussc Hx Patient Social History Alcohol Use: Denies Use Recreational Drug Use: No Smoking Status: Current Everyday Smoker Type Used: Cigarettes 2nd Hand Smoke Exposure: Yes Recent Foreign Travel: No Contact w/Someone Who Travel: No Recent Infectious Disease Expo: No Recent Hopitalizations: No Immunizations Up To Date Tetanus Booster (TDap): Unknown Seasonal Allergies Seasonal Allergies: No Surgeries History of Surgeries: Yes (dahlia & screws right arm, chest tube, tracheostomy, bx right lung, DENTAL) Surgeries: Gallbladder, Hysterectomy, Orthopedic, Tracheostomy (and removal) Respiratory History of Respiratory Disorde: Yes (surgical bx for pneumonia/on ventilator 1995) Respiratory Disorders: Pneumonia, Chronic Bronchitis Currently Using CPAP: No Currently Using BIPAP: No Cardiovascular History of Cardiac Disorders: Yes Cardiac Disorders: High Cholesterol Neurological History of Neurological Disord: Yes (lumbar neural foraminal stenosis) Reproductive System : No Hx Reproductive Disorders: Yes SURGICAL ELASTIC KNITTER History: Hysterectomy Genitourinary History of Genitourinary Disor: No Gastrointestinal History of Gastrointestinal Di: Yes Gastrointestinal Disorders: Gastroesophageal Reflux Musculoskeletal History of Musculoskeletal Dis: Yes (lumbar neuroforaminal stenosis) Musculoskeletal Disorders: Degenerate Disk Disease, Chronic Back Pain Endocrine History of Endocrine Disorders: Yes Endocrine Disorders: Hypothyroidsim, Diabetes, Non-Insulin dep HEENT History of HEENT Disorders: No Cancer History of Cancer: No Psychosocial History of Psychiatric Problem: Yes Behavioral Health Disorders: Anxiety, Depression Integumentary History of Skin or Integumenta: Yes (h/o mrsa infection ) Blood Transfusions History of Blood Disorders: No Family Medical History Significant Family History: No Pertinent Family Hx Physical Exam Vital Signs VS - Last 72 Hours, by Label 05/10/17 05/10/17 21:06 22:53 Temp 97.6 97.6 Pulse 101 69 Resp 18 18 B/P (MAP) 142/70 (94) Pulse Ox 94 96 O2 Delivery Room Air Room Air Capillary Refill : Less Than 3 Seconds General Appearance: WD/WN, no apparent distress HEENT: normal ENT inspection, pharynx normal Neck: normal inspection Respiratory: lungs clear, normal breath sounds, no respiratory distress, no accessory muscle use Cardiovascular: regular rate, rhythm, no edema, no murmur Gastrointestinal: normal bowel sounds, soft, tenderness (right upper quadrant) Extremities: normal inspection, no pedal edema Neurologic/Psychiatric: signals officer II-XII nml as tested, no motor/sensory deficits, alert, normal mood/affect, oriented x 3 Skin: normal color, warm/dry Progress/Results/Core Measures Results/Orders Lab Results Laboratory Tests Test 05/10/17 21:50 Range/Units White Blood Count 11.6 H 4.3-11.0 10^3/uL Red Blood Count 4.11 L 4.35-5.85 10^6/uL Hemoglobin 12.9 11.5-16.0 G/DL Hematocrit 38 35-52 % Mean Corpuscular Volume 93 80-99 FL Mean Corpuscular Hemoglobin 31 25-34 PG Mean Corpuscular Hemoglobin Concent 34 32-36 G/DL Red Cell Distribution Width 14.0 10.0-14.5 % Platelet Count 330 130-400 10^3/uL Mean Platelet Volume 9.4 7.4-10.4 FL Neutrophils (%) (Auto) 58 42-75 % Lymphocytes (%) (Auto) 30 12-44 % Monocytes (%) (Auto) 8 0-12 % Eosinophils (%) (Auto) 3 0-10 % Basophils (%) (Auto) 1 0-10 % Neutrophils # (Auto) 6.8 1.8-7.8 X 10^3 Lymphocytes # (Auto) 3.4 1.0-4.0 X 10^3 Monocytes # (Auto) 1.0 0.0-1.0 X 10^3 Eosinophils # (Auto) 0.4 H 0.0-0.3 10^3/uL Basophils # (Auto) 0.1 0.0-0.1 10^3/uL Urine Color YELLOW Urine Clarity SLIGHTLY CLOUDY Urine pH 8 5-9 Urine Specific [place] 1.010 L 1.016-1.022 Urine Protein NEGATIVE NEGATIVE Urine Glucose (UA) NEGATIVE NEGATIVE Urine Ketones NEGATIVE NEGATIVE Urine Nitrite NEGATIVE NEGATIVE Urine Bilirubin NEGATIVE NEGATIVE Urine Urobilinogen 4 H NORMAL MG/DL Urine Leukocyte Esterase 1+ H NEGATIVE Urine RBC (Auto) NEGATIVE NEGATIVE Urine RBC NONE /HPF Urine WBC 0-2 /HPF Urine Squamous Epithelial Cells 10-25 H /HPF Urine Crystals NONE /LPF Urine Bacteria MODERATE H /HPF Urine Casts NONE /LPF Urine Mucus MODERATE H /LPF Urine Culture Indicated NO Sodium Level 141 135-145 MMOL/L Potassium Level 3.6 3.6-5.0 MMOL/L Chloride Level 103 98-107 MMOL/L Carbon Dioxide Level 26 21-32 MMOL/L Anion Gap 12 5-14 MMOL/L Blood Urea Nitrogen 11 7-18 MG/DL Creatinine 0.84 0.60-1.30 MG/DL Estimat Glomerular Filtration Rate > 60 BUN/Creatinine Ratio 13 Glucose Level 99 70-105 MG/DL Calcium Level 9.5 8.5-10.1 MG/DL Total Bilirubin 0.6 0.1-1.0 MG/DL Aspartate Amino Transf (AST/SGOT) 20 5-34 U/L Alanine Aminotransferase (ALT/SGPT) 31 0-55 U/L Alkaline Phosphatase 69 40-136 U/L Total Protein 7.4 6.4-8.2 GM/DL Albumin 4.2 3.2-4.5 GM/DL Lipase 42 8-78 U/L My Orders Orders - QIANA MARTINEZ MD Ua Culture If Indicated (05/10/17 21:24) Saline Lock/Iv-Start (05/10/17 21:42) Ns Iv 1000 Ml (Sodium Chloride 0.9%) (05/10/17 21:42) Cbc With Automated Diff (05/10/17 21:42) Comprehensive Metabolic Panel (05/10/17 21:42) Lipase (05/10/17 21:42) Ondansetron Injection (Zofran Injectio (05/10/17 21:45) Lidocaine 2% Viscous 15 Ml (Xylocaine Vi (05/10/17 21:45) Antacid Suspension (Mylanta Suspension (05/10/17 21:45) Famotidine Injection (Pepcid Injection) (05/10/17 21:45) Abdomen, Flat & Upright/Decub (05/10/17 21:42) Rx-Ondansetron Po (Rx-Zofran Po) (05/10/17 22:42) Ketorolac Injection (Toradol Injection) (05/10/17 22:45) Medications Given in ED Current Medications Medications Dose Ordered Sig/Bridgette Route Start Time Stop Time Status Last Admin Dose Admin Al Hydrox/Mg Hydrox/Simethicone 30 ml ONCE ONCE PO 05/10/17 21:45 05/10/17 21:46 DC 05/10/17 21:51 30 ML Famotidine 20 mg ONCE ONCE IVP 05/10/17 21:45 05/10/17 21:46 DC 05/10/17 21:51 20 MG Ketorolac Tromethamine 30 mg ONCE ONCE IVP 05/10/17 22:45 05/10/17 22:46 DC 05/10/17 22:51 30 MG Lidocaine HCl 15 ml ONCE ONCE PO 05/10/17 21:45 05/10/17 21:46 DC 05/10/17 21:51 15 ML Ondansetron HCl 8 mg ONCE ONCE IVP 05/10/17 21:45 05/10/17 21:46 DC 05/10/17 21:51 8 MG Sodium Chloride 1,000 ml @ 0 mls/hr Q0M ONCE IV 05/10/17 21:42 05/10/17 21:45 DC 05/10/17 21:52 0 MLS/HR Vital Signs/I&O Vital Sign - Last 12Hours 05/10/17 05/10/17 21:06 22:53 Temp 97.6 97.6 Pulse 101 69 Resp 18 18 B/P (MAP) 142/70 (94) Pulse Ox 94 96 O2 Delivery Room Air Room Air Intake and Output 05/11/17 00:00 Intake Total 1000 ml Balance 1000 ml Blood Pressure Mean: 94 Diagnostic Imaging Diagonstic Imaging: Xray Plain Films/CT/US/NM/MRI: abdomen, pelvis Comments Abdominal x-ray viewed by me. Report not yet available. There is a significant amount of stool in the colon especially in the rectum. This is suggestive of constipation. Departure Impression Impression: Primary Impression: Upper abdominal pain Additional Impressions: Nausea and vomiting Qualified Codes: R11.2 - Nausea with vomiting, unspecified Constipation Qualified Codes: K59.00 - Constipation, unspecified Disposition: 01 HOME, SELF-CARE Condition: Improved Departure-Patient Inst. Decision time for Depature: 22:44 Referrals: BON PORTER DO (PCP) Primary Care Physician RICARDO ROGERS (Family) Primary Care Physician Patient Instructions: Acute Abdomen (Belly Pain), Adult (DC) Add. Discharge Instructions: Drink plenty of clear liquids. Consume primarily a clear liquid diet and telemetry produce a couple of good bowel movements. Try to stick with just Tylenol for pain. For pain uncontrolled by Tylenol, you may add ibuprofen up to 600 mg every 6 hours as needed for additional pain relief. An over-the- counter enema or Dulcolax suppositories may also be helpful and producing a good bowel movement. Your x-ray shows some significant stool in the rectal area. Follow-up with your primary care provider soon as possible. Return to emergency room if symptoms worsen. Use MiraLAX, one capful dissolved in 8-12 ounces of water or juice 2 or 3 times a day until some good bowel movements are produced. All discharge instructions reviewed with patient and/or family. Voiced understanding. QIANA MARTINEZ MD May 10, 2017 22:46
[2017-05-10 22:53] VITALS: BP 123/74
--- NOTE | 2017-05-11 06:50 | Diagnostic Imaging Report ---
EXAMINATION: Abdomen at 1021PM INDICATION: Abdominal pain Supine and erect views were obtained. There is gas in both the large and small bowel in a nonspecific fashion. The bowel gas pattern is similar to the mixing plant dumper film from the CT abdomen/pelvis exam 06/01/2014. There is no evidence for bowel obstruction. There does appear to be a fair amount of fecal material throughout the colon, particularly the rectosigmoid and descending colon. There is no mass, organomegaly or pathological calcification evident. There are surgical coils overlying each superior pubic ramus. Most likely is related to prior hernia repair. There are also surgical clips in the right upper quadrant consistent with a prior cholecystectomy. In addition, there is a dorsal stimulator device in place with the leads overlying the T11-T12 junction. IMPRESSION: The bowel gas pattern is nonspecific. There is no evidence for an acute abnormality. Dictated by: Dictated on workstation # [id number]
== END 2017-05-10 22:53 | disposition home or self-care (01) ==
LOC: EDUNIT# 20:10 → ER 20:12
DX: K59.00 Constipation, unspecified (principal); R11.2 Nausea with vomiting, unspecified; E78.00 Pure hypercholesterolemia, unspecified; K21.9 Gastro-esophageal reflux disease without esophagitis; E03.9 Hypothyroidism, unspecified; E11.9 Type 2 diabetes mellitus without complications; F41.9 Anxiety disorder, unspecified; F32.9 Major depressive disorder, single episode, unspecified; F17.210 Nicotine dependence, cigarettes, uncomplicated; Z87.01 Personal history of pneumonia (recurrent); Z90.49 Acquired absence of other specified parts of digestive tract; Z93.0 Tracheostomy status; Z90.710 Acquired absence of both cervix and uterus; Z79.84 Long term (current) use of oral hypoglycemic drugs; Z86.14 Personal history of Methicillin resistant Staphylococcus aureus infection
CPT/HCPCS: 36415; 74020; 80053; 81000; 83690; 85025

== ENCOUNTER 2017-06-17 10:26 | Outpatient (RCR) | payer MEDICAID ==
[~2017-06-17 10:26] MED LIST changes: +BREX2TAB PO; +HYDR-700; +LISI2.5T PO; +METF500T8 PO; +NABU500T PO; +VORT20TA PO
[2017-07-14] MEDS ORDERED: AZIT500T PO (23:53)
[2017-07-14] MEDS ORDERED: BENZ-13 PO (23:53)
[2017-07-14] MEDS ORDERED: METH4TAB PO (23:53)
[2017-07-14] MEDS ORDERED: GUAI1TBM19 PO (23:53)
[2017-07-14] MEDS ORDERED: BUDE90AE2 IH (23:53)
[2017-07-14] MEDS ORDERED: CEFD300C3 PO (23:53)
[2017-07-16] MEDS ORDERED: OMG1KC PO (08:12)
[2017-07-16] MEDS ORDERED: ASCO-262 PO (08:12)
[2017-07-16] MEDS ORDERED: LOVA20TA2 PO (08:12)
[2017-07-16] MEDS ORDERED: ALPR0.5T7 PO (08:12)
[2017-07-16] MEDS ORDERED: BUSP5TAB59 PO (08:12)
[2017-07-16] MEDS ORDERED: TRAZ150T72 PO (08:12)
[2017-07-17] MEDS ORDERED: PRED10TA22 PO (08:41)
[2017-07-17] MEDS ORDERED: IPRA3AMP IH (09:02)
[2017-07-17] MEDS ORDERED: NEBU1KIT3 MC ×2 (09:02→12:34)
[2017-08-01] MEDS ORDERED: LEVO750T9 PO (04:27)
[2017-08-16] MEDS ORDERED: NITR-65 PO (02:35)
== END 2017-09-15 | disposition home or self-care (01) ==
LOC: CARD 10:26
PROVIDERS: ATTEND Internal Medicine Cardiovascular Disease
DX: G89.4 Chronic pain syndrome (principal); R42 Dizziness and giddiness; R00.2 Palpitations; E13.9 Other specified diabetes mellitus without complications; F32.9 Major depressive disorder, single episode, unspecified; E78.2 Mixed hyperlipidemia; E66.9 Obesity, unspecified
CPT/HCPCS: 93225; 93226

== ENCOUNTER 2017-07-14 22:59 | Emergency (ER) | payer MEDICAID ==
[~2017-07-14] VITALS: Ht 175.3 cm; Wt 122.9 kg
--- OUTSIDE RECORDS SUMMARY | 2017-07-14 23:04 | XMS REPORT | Clinical Summary ---
Author Author [facility] Organization [facility] Address Unknown Phone Unavailable Care Team Providers Care Director Of Supply Chain Name Role Phone ThomasSusy sullivan ARABELLA PCP Source Comments Some departments are not documenting in the electronic medical record. If you do not see the information that you expected, contact Release of Information in the Health Information Management department at [phone] for further assistance in locating additional records.[facility] Allergies Not on File Current [...] 12/09/2005 BREAST CANCER SCREENING 2015 INFLUENZA VACCINE 2017 Results Not on filefrom Last 3 Months
--- OUTSIDE RECORDS SUMMARY | 2017-07-14 23:10 | XMS REPORT | Continuity of Care Document ---
Author Author [facility] Address Unknown Phone Unavailable Allergies Active Description Code Type Severity Reaction Onset Reported/Identified Relationship to Patient Clinical Status Yes acetaminophen [id number] Drug Allergy Unknown N/A 07/17/2006 Yes Tylenol Drug Allergy 09/02/2011 Yes Tylenol Drug Allergy N/A N/A 09/02/2011 Yes fentanyl 50 mcg/hr Patch 72 hr Drug Allergy N/A N/A 10/13/2012 Yes fentanyl [id number] Drug Allergy Unknown N/A 11/19/2013 Yes acetaminophen [id number] Drug Allergy Mild N/V, CAN TAKE P 07/28/2014 Yes methocarbamol [id number] Drug Allergy Unknown N/A 10/13/2015 Medications There [...] DEPRESSIVE RECURRENT SEVERE W/O PSYCHOTIC BEHAVIOR 10/02/2011 OBN PORTER DO 301.83 PD BORDERLINE 10/02/2011 BON [...] HILL APRN 301.83 PD BORDERLINE 10/02/2011 MADL [employer], RICARDO L 296.33 MO DEPRESSIVE RECURRENT SEVERE W/O PSYCHOTIC BEHAVIOR 10/02/2011 MADL [employer] OPERATOR, RICARDO L 301.83 PD BORDERLINE 10/02/2011 MADL [employer] OPERATOR, RICARDO L 296.33 MO DEPRESSIVE RECURRENT SEVERE W/O PSYCHOTIC BEHAVIOR 10/02/2011 MADL [employer] OPERATOR, RICARDO L 301.83 PD BORDERLINE 10/02/2011 MADL [employer] OPERATOR, RICARDO L 296.33 MO DEPRESSIVE RECURRENT SEVERE W/O PSYCHOTIC BEHAVIOR 10/02/2011 MADL [employer] OPERATOR, RICARDO L 301.83 PD BORDERLINE 10/02/2011 MADL [employer] OPERATOR, RICARDO L 296.33 MO DEPRESSIVE RECURRENT SEVERE W/O PSYCHOTIC BEHAVIOR 10/02/2011 MADL [employer] OPERATOR, RICARDO L 301.83 PD BORDERLINE 10/02/2011 MADL [employer] OPERATOR, RICARDO L 296.33 MO DEPRESSIVE RECURRENT SEVERE W/O PSYCHOTIC BEHAVIOR 10/02/2011 MADL [employer] OPERATOR, RICARDO L 301.83 PD BORDERLINE 10/02/2011 MADL [employer] OPERATOR, RICARDO L 296.33 MO DEPRESSIVE RECURRENT SEVERE W/O PSYCHOTIC BEHAVIOR 10/02/2011 MADL [employer] OPERATOR, RICARDO L 301.83 PD BORDERLINE 10/02/2011 CHRISTIANO CARRERA PSYD L 296.33 MO DEPRESSIVE RECURRENT SEVERE W/O PSYCHOTIC BEHAVIOR 10/02/2011 CHRISTIANO CARRERA PSYD ANN L 301.83 PD BORDERLINE 10/02/2011 MADL [employer] OPERATOR, RICARDO L 296.33 MO DEPRESSIVE RECURRENT SEVERE W/O PSYCHOTIC BEHAVIOR 10/02/2011 MADL [employer] OPERATOR, RICARDO L 301.83 PD BORDERLINE 10/02/2011 MADL [employer] OPERATOR, RICARDO L 296.33 MO DEPRESSIVE RECURRENT SEVERE W/O PSYCHOTIC BEHAVIOR 10/02/2011 MADL [employer] OPERATOR, RICARDO L 301.83 PD BORDERLINE 10/02/2011 PORTER DO BON K 296.33 MO DEPRESSIVE RECURRENT SEVERE W/O PSYCHOTIC BEHAVIOR 10/02/2011 PORTER DO BON K 301.83 PD BORDERLINE 10/02/2011 CHRISTIANO CARRERA PSYD L 296.33 MO DEPRESSIVE RECURRENT SEVERE W/O PSYCHOTIC BEHAVIOR 10/02/2011 CHRISTIANO CARRERA PSYD L 301.83 PD BORDERLINE 10/02/2011 MADL [employer]PERATOR, RICARDO L 296.33 MO DEPRESSIVE RECURRENT SEVERE W/O PSYCHOTIC BEHAVIOR 10/02/2011 MADL [employer] OPERATOR, RICARDO L 301.83 PD BORDERLINE 10/02/2011 MADL [employer] OPERATOR, RICARDO L 296.33 MO DEPRESSIVE RECURRENT SEVERE W/O PSYCHOTIC BEHAVIOR 10/02/2011 MADL [employer] OPERATOR, RICARDO L 301.83 PD BORDERLINE 10/02/2011 MADL [employer] OPERATOR, RICARDO L 296.33 MO DEPRESSIVE RECURRENT SEVERE W/O PSYCHOTIC BEHAVIOR 10/02/2011 MADL [employer] OPERATOR, RICARDO L 301.83 PD BORDERLINE 10/02/2011 CHRISTIANO CARRERA PSYD L 296.33 MO DEPRESSIVE RECURRENT SEVERE W/O PSYCHOTIC BEHAVIOR 10/02/2011 CHRISTIANO CARRERA PSYD L 301.83 PD BORDERLINE 10/02/2011 MADL [employer] OPERATOR, RICARDO L 296.33 MO DEPRESSIVE RECURRENT SEVERE W/O PSYCHOTIC BEHAVIOR 10/02/2011 MADL [employer] OPERATOR, RICARDO L 301.83 PD BORDERLINE 10/02/2011 MADL [employer] OPERATOR, RICARDO L 296.33 MO DEPRESSIVE RECURRENT SEVERE W/O PSYCHOTIC BEHAVIOR 10/02/2011 MADL [employer] OPERATOR, RICARDO L 301.83 PD BORDERLINE 10/02/2011 MADL [employer] OPERATOR, RICARDO L 296.33 MO DEPRESSIVE RECURRENT SEVERE W/O PSYCHOTIC BEHAVIOR 10/02/2011 MADL [employer] OPERATOR, RICARDO L 301.83 PD BORDERLINE 10/02/2011 PORTER DO BON K 296.33 MO DEPRESSIVE RECURRENT SEVERE W/O PSYCHOTIC BEHAVIOR 10/02/2011 PORTER DO BON K 301.83 PD BORDERLINE 10/02/2011 MADL [employer] OPERATOR, RICARDO L 296.33 MO DEPRESSIVE RECURRENT SEVERE W/O PSYCHOTIC BEHAVIOR 10/02/2011 MADL [employer] OPERATOR, RICARDO L 301.83 PD BORDERLINE 10/02/2011 CHRISTIANO [...] PD PERS DIS NOS 11/14/2011 LIZ JOAQUIN RUBNE DARBY 296.32 MAJOR DEPRESSION RECURRENT MODERATE 11/14/2011 [...] 301.9 PD PERS DIS NOS 11/14/2011 KEN [employer], RICARDO L 296.32 MAJOR DEPRESSION RECURRENT MODERATE 11/14/2011 SONYAL [employer]ATOR, RICARDO L 301.9 PD PERS DIS NOS 11/14/2011 KEN [employer] OPERATOR, RICARDO L 296.32 MAJOR DEPRESSION RECURRENT MODERATE 11/14/2011 MADL [employer] OPERATOR, RICARDO L 301.9 PD PERS DIS NOS 11/14/2011 MADL [employer] OPERATOR, RICARDO L 296.32 MAJOR DEPRESSION RECURRENT MODERATE 11/14/2011 MADL [employer] OPERATOR, RICARDO L 301.9 PD PERS DIS NOS 11/14/2011 MADL [employer] OPERATOR, RICARDO L 296.32 MAJOR DEPRESSION RECURRENT MODERATE 11/14/2011 MADL [employer] OPERATOR, RICARDO L 301.9 PD PERS DIS NOS 11/14/2011 MADL [employer] OPERATOR, RICARDO L 296.32 MAJOR DEPRESSION RECURRENT MODERATE 11/14/2011 MADL [employer] OPERATOR, RICARDO L 301.9 PD PERS DIS NOS 11/14/2011 MADL [employer] OPERATOR, RICARDO L 296.32 MAJOR DEPRESSION RECURRENT MODERATE 11/14/2011 MADL [employer] OPERATOR, RICARDO L 301.9 PD PERS DIS NOS 11/14/2011 CHRISTIANO CARRERA PSYD ANN L 296.32 MAJOR DEPRESSION RECURRENT MODERATE 11/14/2011 CHRISTIANO CARRERA PSYD ANN L 301.9 PD PERS DIS NOS 11/14/2011 MADL [employer] OPERATOR, RICARDO L 296.32 MAJOR DEPRESSION RECURRENT MODERATE 11/14/2011 MADL [employer] OPERATOR, RICARDO L 301.9 PD PERS DIS NOS 11/14/2011 MADL [employer] OPERATOR, RICARDO L 296.32 MAJOR DEPRESSION RECURRENT MODERATE 11/14/2011 MADL [employer] OPERATOR, RICARDO L 301.9 PD PERS DIS NOS 11/14/2011 PORTER DO, BON K 296.32 MAJOR DEPRESSION RECURRENT MODERATE 11/14/2011 PORTER DO, BON K 301.9 PD PERS DIS NOS 11/14/2011 CHRISTIANO CARRERA PSYD L 296.32 MAJOR DEPRESSION RECURRENT MODERATE 11/14/2011 CHRISTIANO CARRERA PSYD L 301.9 PD PERS DIS NOS 11/14/2011 MADL [employer] OPERATOR, RICARDO L 296.32 MAJOR DEPRESSION RECURRENT MODERATE 11/14/2011 MADL [employer] OPERATOR, RICARDO L 301.9 PD PERS DIS NOS 11/14/2011 MADL [employer] OPERATOR, RICARDO L 296.32 MAJOR DEPRESSION RECURRENT MODERATE 11/14/2011 MADL [employer] OPERATOR, RICARDO L 301.9 PD PERS DIS NOS 11/14/2011 MADL [employer] OPERATOR, RICARDO L 296.32 MAJOR DEPRESSION RECURRENT MODERATE 11/14/2011 MADL [employer] OPERATOR, RICARDO L 301.9 PD PERS DIS NOS 11/14/2011 CHRISTIANO CARRERA PSYD L 296.32 MAJOR DEPRESSION RECURRENT MODERATE 11/14/2011 CHRISTIANO CARRERA PSYD ANN L 301.9 PD PERS DIS NOS 11/14/2011 MADL [employer] OPERATOR, RICARDO L 296.32 MAJOR DEPRESSION RECURRENT MODERATE 11/14/2011 MADL [employer] OPERATOR, RICARDO L 301.9 PD PERS DIS NOS 11/14/2011 MADL [employer] OPERATOR, RICARDO L 296.32 MAJOR DEPRESSION RECURRENT MODERATE 11/14/2011 MADL [employer] OPERATOR, RICARDO L 301.9 PD PERS DIS NOS 11/14/2011 MADL [employer] OPERATOR, RICARDO L 296.32 MAJOR DEPRESSION RECURRENT MODERATE 11/14/2011 MADL [employer] OPERATOR, RICARDO L 301.9 PD PERS DIS NOS 11/14/2011 BON PORTER DO K 296.32 MAJOR DEPRESSION RECURRENT MODERATE 11/14/2011 BON PORTER DO K 301.9 PD PERS DIS NOS 11/14/2011 MADL [employer] OPERATOR, RICARDO L 296.32 MAJOR DEPRESSION RECURRENT MODERATE 11/14/2011 MADL [employer] OPERATOR, RICARDO L 301.9 PD PERS DIS NOS [...] AN PANIC DIS W/O AGORA 11/21/2011 MADL [employer] OPERATOR, RICARDO L 300.01 AN PANIC DIS W/O AGORA 11/21/2011 MADL [employer] OPERATOR, RICARDO L 300.01 AN PANIC DIS W/O AGORA 11/21/2011 MADL [employer] OPERATOR, RICARDO L 300.01 AN PANIC DIS W/O AGORA 11/21/2011 MADL [employer] OPERATOR, RICARDO L 300.01 AN PANIC DIS W/O AGORA 11/21/2011 MADL [employer] OPERATOR, RICARDO L 300.01 AN PANIC DIS W/O AGORA 11/21/2011 MADL [employer] OPERATOR, RICARDO L 300.01 AN PANIC DIS W/O AGORA 11/21/2011 CHRISTIANO CARRERA PSYD L 300.01 AN PANIC DIS W/O AGORA 11/21/2011 MADL [employer] OPERATOR, RICARDO L 300.01 AN PANIC DIS W/O AGORA 11/21/2011 MADL [employer] OPERATOR, RICARDO L 300.01 AN PANIC DIS W/O AGORA 11/21/2011 BON PORTER DO 300.01 AN PANIC DIS W/O AGORA 11/21/2011 CHRISTIANO CARRERA PSYD L 300.01 AN PANIC DIS W/O AGORA 11/21/2011 MADL [employer] OPERATOR, RICARDO L 300.01 AN PANIC DIS W/O AGORA 11/21/2011 MADL [employer] OPERATOR, RICARDO L 300.01 AN PANIC DIS W/O AGORA 11/21/2011 MADL [employer] OPERATOR, RICARDO L 300.01 AN PANIC DIS W/O AGORA 11/21/2011 CHRISTIANO CARRERA PSYD L 300.01 AN PANIC DIS W/O AGORA 11/21/2011 MADL [employer] OPERATOR, RICARDO L 300.01 AN PANIC DIS W/O AGORA 11/21/2011 MADL [employer] OPERATOR, RICARDO L 300.01 AN PANIC DIS W/O AGORA 11/21/2011 MADL [employer] OPERATOR, RICARDO L 300.01 AN PANIC DIS W/O AGORA 11/21/2011 BON PORTER DO 300.01 AN PANIC DIS W/O AGORA 11/21/2011 MADL [employer] OPERATOR, RICARDO L 300.01 AN PANIC DIS W/O [...] APRN 300.02 AN GEN ANXIETY 02/10/2012 MADL [employer] OPERATOR, RICARDO L 300.02 AN GEN ANXIETY 02/10/2012 MADL [employer] OPERATOR, RICARDO L 300.02 AN GEN ANXIETY 02/10/2012 MADL [employer] OPERATOR, RICARDO L 300.02 AN GEN ANXIETY 02/10/2012 MADL [employer] OPERATOR, RICARDO L 300.02 AN GEN ANXIETY 02/10/2012 MADL [employer] OPERATOR, RICARDO L 300.02 AN GEN ANXIETY 02/10/2012 MADL [employer] OPERATOR, RICARDO L 300.02 AN GEN ANXIETY 02/10/2012 CHRISTIANO CARRERA PSYD L 300.02 AN GEN ANXIETY 02/10/2012 MADL [employer] OPERATOR, RICARDO L 300.02 AN GEN ANXIETY 02/10/2012 MADL [employer] OPERATOR, RICARDO L 300.02 AN GEN ANXIETY 02/10/2012 BON PORTER DO 300.02 AN GEN ANXIETY 02/10/2012 CHRISTIANO CARRERA PSYD L 300.02 AN GEN ANXIETY 02/10/2012 MADL [employer] OPERATOR, RICARDO L 300.02 AN GEN ANXIETY 02/10/2012 MADL [employer] OPERATOR, RICARDO L 300.02 AN GEN ANXIETY 02/10/2012 MADL [employer] OPERATOR, RICARDO L 300.02 AN GEN ANXIETY 02/10/2012 CHRISTIANO CARRERA PSYD L 300.02 AN GEN ANXIETY 02/10/2012 MADL [employer] OPERATOR, RICARDO L 300.02 AN GEN ANXIETY 02/10/2012 MADL [employer] OPERATOR, RICARDO L 300.02 AN GEN ANXIETY 02/10/2012 [...] AND ABSCESS OF LEG EXCEPT FOOT 03/05/2012 EHMA CUTLER MD 682.6 CELLULITIS AND ABSCESS OF LEG EXCEPT FOOT 03/05/2012 CHRISTIANO CARRERA PSYD 682.6 CELLULITIS AND ABSCESS OF LEG [...] ABSCESS OF LEG EXCEPT FOOT 03/05/2012 MADL [employer] OPERATOR, RICARDO L 682.6 CELLULITIS AND ABSCESS OF LEG EXCEPT FOOT 03/05/2012 MADL [employer] OPERATOR, RICARDO L 682.6 CELLULITIS AND ABSCESS OF LEG EXCEPT FOOT 03/05/2012 MADL [employer] OPERATOR, RICARDO L 682.6 CELLULITIS AND ABSCESS OF LEG EXCEPT FOOT 03/05/2012 MADL [employer] OPERATOR, RICARDO L 682.6 CELLULITIS AND ABSCESS OF LEG EXCEPT FOOT 03/05/2012 MADL [employer] OPERATOR, RICARDO L 682.6 CELLULITIS AND ABSCESS OF LEG EXCEPT FOOT 03/05/2012 MADL [employer] OPERATOR, RICARDO L 682.6 CELLULITIS AND ABSCESS OF LEG EXCEPT FOOT 03/05/2012 CHRISTIANO CARRERA PSYD L 682.6 CELLULITIS AND ABSCESS OF LEG EXCEPT FOOT 03/05/2012 MADL [employer] OPERATOR, RICARDO L 682.6 CELLULITIS AND ABSCESS OF LEG EXCEPT FOOT 03/05/2012 MADL [employer] OPERATOR, RICARDO L 682.6 CELLULITIS AND ABSCESS OF LEG EXCEPT FOOT 03/05/2012 BON PORTER DO 682.6 CELLULITIS AND ABSCESS OF LEG EXCEPT FOOT 03/05/2012 CHRISTIANO CARRERA PSYD L 682.6 CELLULITIS AND ABSCESS OF LEG EXCEPT FOOT 03/05/2012 MADL [employer] OPERATOR, RICARDO L 682.6 CELLULITIS AND ABSCESS OF LEG EXCEPT FOOT 03/05/2012 MADL [employer] OPERATOR, RICARDO L 682.6 CELLULITIS AND ABSCESS OF LEG EXCEPT FOOT 03/05/2012 MADL [employer] OPERATOR, RICARDO L 682.6 CELLULITIS AND ABSCESS OF LEG EXCEPT FOOT 03/05/2012 CHRISTIANO CARRERA PSYD L 682.6 CELLULITIS AND ABSCESS OF LEG EXCEPT FOOT 03/05/2012 MADL [employer] OPERATOR, RICARDO L 682.6 CELLULITIS AND ABSCESS OF LEG EXCEPT FOOT 03/05/2012 MADL [employer] OPERATOR, RICARDO L 682.6 CELLULITIS AND ABSCESS OF LEG EXCEPT FOOT 03/05/2012 MADL [employer] OPERATOR, RICARDO L 682.6 CELLULITIS AND ABSCESS OF LEG EXCEPT FOOT 03/05/2012 PORTER DO, BON K 682.6 CELLULITIS AND ABSCESS OF LEG EXCEPT FOOT 03/05/2012 MADL [employer] OPERATOR, RICARDO L 682.6 CELLULITIS AND ABSCESS OF [...] MENCHACA APRN T 244.9 HYPOTHYROIDISM 03/24/2012 NIKOLAI [employer] OPERATORMEGAN Mcclure T 268.9 VITAMIN D DEFICIENCY 03/24/2012 NIKOLAI [employer] OPERATOR, MEGAN T 716.90 ARTHRITIS/ ARTHROPATHY, UNSPECIFIED 03/24/2012 [...] DARBY 716.90 ARTHRITIS/ ARTHROPATHY, UNSPECIFIED 03/24/2012 MADL [employer] OPERATOR, RICARDO L 244.9 HYPOTHYROIDISM 03/24/2012 MADL [employer] OPERATOR, RICARDO L 268.9 VITAMIN D DEFICIENCY 03/24/2012 MADL [employer] OPERATOR, RICARDO L 716.90 ARTHRITIS/ ARTHROPATHY, UNSPECIFIED 03/24/2012 MADL [employer] OPERATOR, RICARDO L 244.9 HYPOTHYROIDISM 03/24/2012 MADL [employer] OPERATOR, RICARDO L 268.9 VITAMIN D DEFICIENCY 03/24/2012 MADL [employer] OPERATOR, RICARDO L 716.90 ARTHRITIS/ ARTHROPATHY, UNSPECIFIED 03/24/2012 MADL [employer] OPERATOR, RICARDO L 244.9 HYPOTHYROIDISM 03/24/2012 MADL [employer] OPERATOR, RICARDO L 268.9 VITAMIN D DEFICIENCY 03/24/2012 MADL [employer] OPERATOR, RICARDO L 716.90 ARTHRITIS/ ARTHROPATHY, UNSPECIFIED 03/24/2012 MADL [employer] OPERATOR, RICARDO L 244.9 HYPOTHYROIDISM 03/24/2012 MADL [employer] OPERATOR, RICARDO L 268.9 VITAMIN D DEFICIENCY 03/24/2012 MADL [employer] OPERATOR, RICARDO L 716.90 ARTHRITIS/ ARTHROPATHY, UNSPECIFIED 03/24/2012 MADL [employer] OPERATOR, RICARDO L 244.9 HYPOTHYROIDISM 03/24/2012 MADL [employer] OPERATOR, RICARDO L 268.9 VITAMIN D DEFICIENCY 03/24/2012 MADL [employer] OPERATOR, RICARDO L 716.90 ARTHRITIS/ ARTHROPATHY, UNSPECIFIED 03/24/2012 MADL [employer] OPERATOR, RICARDO L 244.9 HYPOTHYROIDISM 03/24/2012 MADL [employer] OPERATOR, RICARDO L 268.9 VITAMIN D DEFICIENCY 03/24/2012 MADL [employer] OPERATOR, RICARDO L 716.90 ARTHRITIS/ ARTHROPATHY, UNSPECIFIED 03/24/2012 CHRISTIANO CARRERA PSYD ANN L 244.9 HYPOTHYROIDISM 03/24/2012 CHRISTIANO CARRERA PSYD ANN L 268.9 VITAMIN D DEFICIENCY 03/24/2012 CHRISTIANO CARRERA PSYD ANN L 716.90 ARTHRITIS/ ARTHROPATHY, UNSPECIFIED 03/24/2012 MADL [employer] OPERATOR, RICARDO L 244.9 HYPOTHYROIDISM 03/24/2012 MADL [employer] OPERATOR, RICARDO L 268.9 VITAMIN D DEFICIENCY 03/24/2012 MADL [employer] OPERATOR, RICARDO L 716.90 ARTHRITIS/ ARTHROPATHY, UNSPECIFIED 03/24/2012 MADL [employer] OPERATOR, RICARDO L 244.9 HYPOTHYROIDISM 03/24/2012 MADL [employer] OPERATOR, RICARDO L 268.9 VITAMIN D DEFICIENCY 03/24/2012 MADL [employer] OPERATOR, RICARDO L 716.90 ARTHRITIS/ ARTHROPATHY, UNSPECIFIED 03/24/2012 PORTER DO, BON K 244.9 HYPOTHYROIDISM 03/24/2012 PORTER DO, BON K 268.9 VITAMIN D DEFICIENCY 03/24/2012 PORTER DO, BON K 716.90 ARTHRITIS/ ARTHROPATHY, UNSPECIFIED 03/24/2012 CHRISTIANO CARRERA PSYD ANN L 244.9 HYPOTHYROIDISM 03/24/2012 CHRISTIANO CARRERA PSYD ANN L 268.9 VITAMIN D DEFICIENCY 03/24/2012 CHRISTIANO CARRERA PSYD ANN L 716.90 ARTHRITIS/ ARTHROPATHY, UNSPECIFIED 03/24/2012 MADL [employer] OPERATOR, RICARDO L 244.9 HYPOTHYROIDISM 03/24/2012 MADL [employer] OPERATOR, RICARDO L 268.9 VITAMIN D DEFICIENCY 03/24/2012 MADL [employer] OPERATOR, RICARDO L 716.90 ARTHRITIS/ ARTHROPATHY, UNSPECIFIED 03/24/2012 MADL [employer] OPERATOR, RICARDO L 244.9 HYPOTHYROIDISM 03/24/2012 MADL [employer] OPERATOR, RICARDO L 268.9 VITAMIN D DEFICIENCY 03/24/2012 MADL [employer] OPERATOR, RICARDO L 716.90 ARTHRITIS/ ARTHROPATHY, UNSPECIFIED 03/24/2012 MADL [employer] OPERATOR, RICARDO L 244.9 HYPOTHYROIDISM 03/24/2012 MADL [employer] OPERATOR, RICARDO L 268.9 VITAMIN D DEFICIENCY 03/24/2012 MADL [employer] OPERATOR, RICARDO L 716.90 ARTHRITIS/ ARTHROPATHY, UNSPECIFIED 03/24/2012 CHRISTIANO CARRERA PSYD ANN L 244.9 HYPOTHYROIDISM 03/24/2012 CHRISTIANO CARRERA PSYD ANN L 268.9 VITAMIN D DEFICIENCY 03/24/2012 CHRISTIANO CARRERA PSYD ANN L 716.90 ARTHRITIS/ ARTHROPATHY, UNSPECIFIED 03/24/2012 MADL [employer] OPERATOR, RICARDO L 244.9 HYPOTHYROIDISM 03/24/2012 MADL [employer] OPERATOR, RICARDO L 268.9 VITAMIN D DEFICIENCY 03/24/2012 MADL [employer] OPERATOR, RICARDO L 716.90 ARTHRITIS/ ARTHROPATHY, UNSPECIFIED 03/24/2012 MADL [employer] OPERATOR, RICARDO L 244.9 HYPOTHYROIDISM 03/24/2012 MADL [employer] OPERATOR, RICARDO L 268.9 VITAMIN D DEFICIENCY 03/24/2012 MADL [employer] OPERATOR, RICARDO L 716.90 ARTHRITIS/ ARTHROPATHY, UNSPECIFIED 03/24/2012 MADL [employer] OPERATOR, RICARDO L 244.9 HYPOTHYROIDISM 03/24/2012 MADL [employer] OPERATOR, RICARDO L 268.9 VITAMIN D DEFICIENCY 03/24/2012 MADL [employer] OPERATOR, RICARDO L 716.90 ARTHRITIS/ ARTHROPATHY, UNSPECIFIED 03/24/2012 PORTER DO, BON K 244.9 HYPOTHYROIDISM 03/24/2012 PORTER DO, BON K 268.9 VITAMIN D DEFICIENCY 03/24/2012 PORTER DO, BON K 716.90 ARTHRITIS/ ARTHROPATHY, UNSPECIFIED 03/24/2012 MADL [employer] OPERATOR, RICARDO L 244.9 HYPOTHYROIDISM 03/24/2012 MADL [employer] OPERATOR, RICARDO L 268.9 VITAMIN D DEFICIENCY 03/24/2012 MADL [employer] OPERATOR, RICARDO L 716.90 ARTHRITIS/ ARTHROPATHY, UNSPECIFIED 03/24/2012 CHRISTIANO CARRERA PSYD ANN L 244.9 HYPOTHYROIDISM 03/24/2012 CHRISTIANO CARRREA PSYD ANN L 268.9 VITAMIN D DEFICIENCY [...] BRONCHITIS, ACUTE 06/30/2012 786.2 COUGH 06/30/2012 HILL [employer], RUBEN WILNER 466.0 BRONCHITIS, ACUTE 06/30/2012 [employer]ILL [employer], RUBEN DARBY 786.2 COUGH 06/30/2012 OMAYRA ANDERSON, HEMA M 466.0 BRONCHITIS, ACUTE 06/30/2012 OMAYRA ANDERSON, HEMA M 786.2 COUGH 06/30/2012 DEANDRE PSOLU, PITO L 466.0 BRONCHITIS, ACUTE 06/30/2012 DEANDRE FRANCO, PITO L 786.2 COUGH 06/30/2012 HILL [employer], RUBEN DARBY 466.0 BRONCHITIS, ACUTE 06/30/2012 HILL [employer], RUBEN DARBY 786.2 COUGH 06/30/2012 NIKOLAI [employer], MEGAN T 466.0 BRONCHITIS, ACUTE 06/30/2012 NIKOLAI [employer], MEGAN T 786.2 COUGH 06/30/2012 DEANDRE FRANCO, PITO L 466.0 BRONCHITIS, ACUTE 06/30/2012 DEANDRE FRANCO, PITO L 786.2 COUGH 06/30/2012 HEMA CUTLER MD M 466.0 BRONCHITIS, ACUTE 06/30/2012 HEMA CUTLER MD 786.2 COUGH 06/30/2012 LIZ JOAQUIN, RUBEN DARBY 466.0 BRONCHITIS, ACUTE 06/30/2012 HILL APRN, RUBEN DARBY 786.2 COUGH 06/30/2012 [employer], RICARDO L 466.0 BRONCHITIS, ACUTE 06/30/2012 [employer], RICARDO L 786.2 COUGH 06/30/2012 MAD[employer], RICARDO L 466.0 BRONCHITIS, ACUTE 06/30/2012 [employer], RICARDO L 786.2 COUGH 06/30/2012 [employer], RICARDO L 466.0 BRONCHITIS, ACUTE 06/30/2012 [employer], RICARDO L 786.2 COUGH 06/30/2012 [employer], RICARDO L 466.0 BRONCHITIS, ACUTE 06/30/2012 [employer], RICARDO L 786.2 COUGH 06/30/2012 [employer], RICARDO L 466.0 BRONCHITIS, ACUTE 06/30/2012 [employer], RICARDO L 786.2 COUGH 06/30/2012 MAD[employer], RICARDO L 466.0 BRONCHITIS, ACUTE 06/30/2012 [employer], RICARDO L 786.2 COUGH 06/30/2012 CHRISTIANO CARRERA PSYD ANN L 466.0 BRONCHITIS, ACUTE 06/30/2012 CHRISTIANO CARRERA PSYD ANN L 786.2 COUGH 06/30/2012 [employer], RICARDO L 466.0 BRONCHITIS, ACUTE 06/30/2012 M[employer], RICARDO L 786.2 COUGH 06/30/2012 [employer], RICARDO L 466.0 BRONCHITIS, ACUTE 06/30/2012 [employer], RICARDO L 786.2 COUGH 06/30/2012 PORTER DO, BON K 466.0 BRONCHITIS, ACUTE 06/30/2012 PORTER DO, BON K 786.2 COUGH 06/30/2012 CHRISTIANO CARRERA PSYD ANN L 466.0 BRONCHITIS, ACUTE 06/30/2012 CHRISTIANO CARRERA PSYD ANN L 786.2 COUGH 06/30/2012 M[employer], RICARDO L 466.0 BRONCHITIS, ACUTE 06/30/2012 [employer], RICARDO L 786.2 COUGH 06/30/2012 MAD[employer], RICARDO L 466.0 BRONCHITIS, ACUTE 06/30/2012 M[employer], RICARDO L 786.2 COUGH 06/30/2012 MAD[employer], RICARDO L 466.0 BRONCHITIS, ACUTE 06/30/2012 M[employer], RICARDO L 786.2 COUGH 06/30/2012 CHRISTIANO CARRERA PSYD ANN L 466.0 BRONCHITIS, ACUTE 06/30/2012 CHRISTIANO CARRERA PSYD ANN L 786.2 COUGH 06/30/2012 MAD[employer], RICARDO L 466.0 BRONCHITIS, ACUTE 06/30/2012 MAD[employer], RICARDO L 786.2 COUGH 06/30/2012 MAD[employer], RICARDO L 466.0 BRONCHITIS, ACUTE 06/30/2012 [employer], RICARDO L 786.2 COUGH 06/30/2012 MAD[employer], RICARDO L 466.0 BRONCHITIS, ACUTE 06/30/2012 [employer], RICARDO L 786.2 COUGH 06/30/2012 PORTER DO, BON K 466.0 BRONCHITIS, ACUTE 06/30/2012 PORTER DO, BON K 786.2 COUGH 06/30/2012 M[employer], RICARDO L 466.0 BRONCHITIS, ACUTE 06/30/2012 [employer], RICARDO L 786.2 COUGH 06/30/2012 CHRISTIANO CARRERA [...] APRN 724.2 lower back pain 07/16/2012 KEN [employer], RICARDO L 724.2 lower back pain 07/16/2012 [employer], RICARDO L 724.2 lower back pain 07/16/2012 [employer], RICARDO L 724.2 lower back pain 07/16/2012 [employer], RICARDO L 724.2 lower back pain 07/16/2012 [employer], RICARDO L 724.2 lower back pain 07/16/2012 [employer], RICARDO L 724.2 lower back pain 07/16/2012 CHRISTIANO CARRERA PSYD ANN L 724.2 lower back pain 07/16/2012 [employer], RICARDO L 724.2 lower back pain 07/16/2012 [employer], RICARDO L 724.2 lower back pain 07/16/2012 PORTER DO, BON K 724.2 lower back pain 07/16/2012 CHRISTIANO CARRERA PSYD ANN L 724.2 lower back pain 07/16/2012 MADL [employer]ATOR, RICARDO L 724.2 lower back pain 07/16/2012 MADL [employer] OPERATOR, RICARDO L 724.2 lower back pain 07/16/2012 MADL [employer] OPERATOR, RICARDO L 724.2 lower back pain 07/16/2012 CHRISTIANO CARRERA PSYD ANN L 724.2 lower back pain 07/16/2012 MADL [employer] OPERATOR, RICARDO L 724.2 lower back pain 07/16/2012 MADL [employer] OPERATOR, RICARDO L 724.2 lower back pain 07/16/2012 MADL [employer] OPERATOR, RICARDO L 724.2 lower back pain 07/16/2012 PORTER DO, BON K 724.2 lower back pain 07/16/2012 MADL [employer]ATOR, RICARDO L 724.2 lower back pain 07/16/2012 [...] L 599.0 URINARY TRACT INFECTION 11/10/2012 LIZ [employer] O[employer]ATOR, RUBEN DARBY 599.0 URINARY TRACT INFECTION 11/10/2012 MEGAN MENCHACA APRN 599.0 URINARY TRACT INFECTION 11/10/2012 CHRISTIANO CARRERA PSYD L 599.0 URINARY TRACT INFECTION 11/10/2012 HEMA CUTLER MD M 599.0 URINARY TRACT INFECTION 11/10/2012 LIZ [employer]ATOR, RBUEN DARBY 599.0 URINARY TRACT INFECTION 11/10/2012 MADL [employer] OPERATOR, RICARDO L 599.0 URINARY TRACT INFECTION 11/10/2012 MADL [employer] OPERATOR, RICARDO L 599.0 URINARY TRACT INFECTION 11/10/2012 MADL [employer] OPERATOR, RICARDO L 599.0 URINARY TRACT INFECTION 11/10/2012 MADL [employer] OPERATOR, RICARDO L 599.0 URINARY TRACT INFECTION 11/10/2012 MADL [employer] OPERATOR, RICARDO L 599.0 URINARY TRACT INFECTION 11/10/2012 MADL [employer] OPERATOR, RICARDO L 599.0 URINARY TRACT INFECTION 11/10/2012 CHRISTIANO CARRERA PSYD ANN L 599.0 URINARY TRACT INFECTION 11/10/2012 MADL [employer] OPERATOR, RICARDO L 599.0 URINARY TRACT INFECTION 11/10/2012 MADL [employer] OPERATOR, RICARDO L 599.0 URINARY TRACT INFECTION 11/10/2012 BON PORTER DO K 599.0 URINARY TRACT INFECTION 11/10/2012 CHRISTIANO CARRERA PSYD L 599.0 URINARY TRACT INFECTION 11/10/2012 MADL [employer] OPERATOR, RICARDO L 599.0 URINARY TRACT INFECTION 11/10/2012 MADL [employer] OPERATOR, RICARDO L 599.0 URINARY TRACT INFECTION 11/10/2012 MADL [employer] OPERATOR, RICARDO L 599.0 URINARY TRACT INFECTION 11/10/2012 CHRISTIANO CARRERA PSYD L 599.0 URINARY TRACT INFECTION 11/10/2012 MADL [employer] OPERATOR, RICARDO L 599.0 URINARY TRACT INFECTION 11/10/2012 MADL [employer] OPERATOR, RICARDO L 599.0 URINARY TRACT INFECTION 11/10/2012 MADL [employer] OPERATOR, RICARDO L 599.0 URINARY TRACT INFECTION 11/10/2012 GERMAN RUSHING, BON K 599.0 URINARY TRACT INFECTION 11/10/2012 MADL [employer]PERATOR, RICARDO L 599.0 URINARY TRACT INFECTION 11/10/2012 [...] APRN 380.10 OTITIS EXTERNA RIGHT 04/28/2013 KEN [employer]ATOR, RICARDO L 380.10 OTITIS EXTERNA RIGHT 04/28/2013 KEN [employer] OPERATOR, RICARDO L 380.10 OTITIS EXTERNA RIGHT 04/28/2013 SONYAL [employer] O[employer]ATOR, RICARDO L 380.10 OTITIS EXTERNA RIGHT 04/28/2013 KEN [employer] OPERATOR, RICARDO L 380.10 OTITIS EXTERNA RIGHT 04/28/2013 KEN [employer] OPERATOR, RICARDO L 380.10 OTITIS EXTERNA RIGHT 04/28/2013 KEN [employer] OPERATOR, RICARDO L 380.10 OTITIS EXTERNA RIGHT 04/28/2013 CHRISTIANO CARRERA PSYD L 380.10 OTITIS EXTERNA RIGHT 04/28/2013 EKN [employer] O[employer]ATOR, RICARDO L 380.10 OTITIS EXTERNA RIGHT 04/28/2013 SONYAL [employer] OPERATOR, RICARDO L 380.10 OTITIS EXTERNA RIGHT 04/28/2013 GERMAN RUSHING, BON K 380.10 OTITIS EXTERNA RIGHT 04/28/2013 CHRISTIANO CARRERA PSYD L 380.10 OTITIS EXTERNA RIGHT 04/28/2013 MADL [employer] OPERATOR, RICARDO L 380.10 OTITIS EXTERNA RIGHT 04/28/2013 MADL [employer] OPERATOR, RICARDO L 380.10 OTITIS EXTERNA RIGHT 04/28/2013 MADL [employer] OPERATOR, RICARDO L 380.10 OTITIS EXTERNA RIGHT 04/28/2013 CHRISTIANO CARRERA PSYD L 380.10 OTITIS EXTERNA RIGHT 04/28/2013 MADL [employer] OPERATOR, RICARDO L 380.10 OTITIS EXTERNA RIGHT 04/28/2013 MADL [employer] OPERATOR, RICARDO L 380.10 OTITIS EXTERNA RIGHT 04/28/2013 MADL [employer] OPERATOR, RICARDO L 380.10 OTITIS EXTERNA RIGHT 04/28/2013 GERMAN RUSHING, BON K 380.10 OTITIS EXTERNA RIGHT 04/28/2013 MADL [employer] OPERATOR, RICARDO L 380.10 OTITIS EXTERNA RIGHT 04/28/2013 [...] 382.00 OTITIS MEDIA ACUTE SUPPURATIVE 07/06/2013 MADL [employer], RICARDO L 296.80 MO BIPOLAR NOS 07/06/2013 MADL [employer] OPERATOR, RICARDO L 382.00 OTITIS MEDIA ACUTE SUPPURATIVE 07/06/2013 MADL [employer] OPERATOR, RICARDO L 296.80 MO BIPOLAR NOS 07/06/2013 MADL [employer] OPERATOR, RICARDO L 382.00 OTITIS MEDIA ACUTE SUPPURATIVE 07/06/2013 MADL [employer] OPERATOR, RICARDO L 296.80 MO BIPOLAR NOS 07/06/2013 MADL [employer] OPERATOR, RICARDO L 382.00 OTITIS MEDIA ACUTE SUPPURATIVE 07/06/2013 MADL [employer] OPERATOR, RICARDO L 296.80 MO BIPOLAR NOS 07/06/2013 MADL [employer] OPERATOR, RICARDO L 382.00 OTITIS MEDIA ACUTE SUPPURATIVE 07/06/2013 MADL [employer] OPERATOR, RICARDO L 296.80 MO BIPOLAR NOS 07/06/2013 MADL [employer] OPERATOR, RICARDO L 382.00 OTITIS MEDIA ACUTE SUPPURATIVE 07/06/2013 MADL [employer] OPERATOR, RICARDO L 296.80 MO BIPOLAR NOS 07/06/2013 MADL [employer] OPERATOR, RICARDO L 382.00 OTITIS MEDIA ACUTE SUPPURATIVE 07/06/2013 CHRISTIANO CARRERA PSYD L 296.80 MO BIPOLAR NOS 07/06/2013 CHRISTIANO CARRERA PSYD ANN L 382.00 OTITIS MEDIA ACUTE SUPPURATIVE 07/06/2013 MADL [employer] OPERATOR, RICARDO L 296.80 MO BIPOLAR NOS 07/06/2013 MADL [employer] OPERATOR, RICARDO L 382.00 OTITIS MEDIA ACUTE SUPPURATIVE 07/06/2013 MADL [employer] OPERATOR, RICARDO L 296.80 MO BIPOLAR NOS 07/06/2013 MADL [employer] OPERATOR, RICARDO L 382.00 OTITIS MEDIA ACUTE SUPPURATIVE 07/06/2013 PORTER DO, BON K 296.80 MO BIPOLAR NOS 07/06/2013 PORTER DO, BON K 382.00 OTITIS MEDIA ACUTE SUPPURATIVE 07/06/2013 CHRISTIANO CARRERA PSYD L 296.80 MO BIPOLAR NOS 07/06/2013 CHRISTIANO CARRERA PSYD L 382.00 OTITIS MEDIA ACUTE SUPPURATIVE 07/06/2013 MADL [employer] OPERATOR, RICARDO L 296.80 MO BIPOLAR NOS 07/06/2013 MADL [employer] OPERATOR, RICARDO L 382.00 OTITIS MEDIA ACUTE SUPPURATIVE 07/06/2013 MADL [employer] OPERATOR, RICARDO L 296.80 MO BIPOLAR NOS 07/06/2013 MADL [employer] OPERATOR, RICARDO L 382.00 OTITIS MEDIA ACUTE SUPPURATIVE 07/06/2013 MADL [employer] OPERATOR, RICARDO L 296.80 MO BIPOLAR NOS 07/06/2013 MADL [employer] OPERATOR, RICARDO L 382.00 OTITIS MEDIA ACUTE SUPPURATIVE 07/06/2013 CHRISTIANO CARRERA PSYD ANN L 296.80 MO BIPOLAR NOS 07/06/2013 CHRISTIANO CARRERA PSYD ANN L 382.00 OTITIS MEDIA ACUTE SUPPURATIVE 07/06/2013 MADL [employer] OPERATOR, RICARDO L 296.80 MO BIPOLAR NOS 07/06/2013 MADL [employer] OPERATOR, RICARDO L 382.00 OTITIS MEDIA ACUTE SUPPURATIVE 07/06/2013 MADL [employer] OPERATOR, RICARDO L 296.80 MO BIPOLAR NOS 07/06/2013 MADL [employer] OPERATOR, RICARDO L 382.00 OTITIS MEDIA ACUTE SUPPURATIVE 07/06/2013 MADL [employer] OPERATOR, RICARDO L 296.80 MO BIPOLAR NOS 07/06/2013 MADL [employer] OPERATOR, RICARDO L 382.00 OTITIS MEDIA ACUTE SUPPURATIVE 07/06/2013 PORTER DO, BON K 296.80 MO BIPOLAR NOS 07/06/2013 PORTER DO, BON K 382.00 OTITIS MEDIA ACUTE SUPPURATIVE 07/06/2013 MADL [employer] OPERATOR, RICARDO L 296.80 MO BIPOLAR NOS 07/06/2013 MADL [employer] OPERATOR, RICARDO L 382.00 OTITIS MEDIA ACUTE SUPPURATIVE [...] BODY MASS INDEX 39.0-39.9, ADULT 10/06/2013 MADL [employer] OPERATOR, RICARDO L 461.9 SINUSITIS ACUTE 10/06/2013 MADL [employer] OPERATOR, RICARDO L 461.9 SINUSITIS ACUTE 10/06/2013 MADL [employer] OPERATOR, RICARDO L 461.9 SINUSITIS ACUTE 10/06/2013 MADL [employer] OPERATOR, RICARDO L 461.9 SINUSITIS ACUTE 10/06/2013 MADL [employer] OPERATOR, RICARDO L 461.9 SINUSITIS ACUTE 10/06/2013 MADL [employer] OPERATOR, RICARDO L 461.9 SINUSITIS ACUTE 10/06/2013 CHRISTIANO CARRERA PSYD L 461.9 SINUSITIS ACUTE 10/06/2013 MADL [employer] OPERATOR, RICARDO L 461.9 SINUSITIS ACUTE 10/06/2013 MADL [employer] OPERATOR, RICARDO L 461.9 SINUSITIS ACUTE 10/06/2013 BON PORTER DO K 461.9 SINUSITIS ACUTE 10/06/2013 CHRISTIANO CARRERA PSYD L 461.9 SINUSITIS ACUTE 10/06/2013 MADL [employer] OPERATOR, RICARDO L 461.9 SINUSITIS ACUTE 10/06/2013 MADL [employer] OPERATOR, RICARDO L 461.9 SINUSITIS ACUTE 10/06/2013 MADL [employer] OPERATOR, RICARDO L 461.9 SINUSITIS ACUTE 10/06/2013 CHRISTIANO CARRERA PSYD L 461.9 SINUSITIS ACUTE 10/06/2013 MADL [employer] OPERATOR, RICARDO L 461.9 SINUSITIS ACUTE 10/06/2013 MADL [employer] OPERATOR, RICARDO L 461.9 SINUSITIS ACUTE 10/06/2013 MADL [employer] OPERATOR, RICARDO L 461.9 SINUSITIS ACUTE 10/06/2013 BON PORTER DO K 461.9 SINUSITIS ACUTE 10/06/2013 MADL [employer] OPERATOR, RICARDO L 461.9 SINUSITIS ACUTE 10/06/2013 CHRISTIANO CARRERA PSYD L 461.9 SINUSITIS ACUTE 10/12/2013 HECTOR MONSIVAIS [employer] OPERATOR Ot 682.3 CELLULITIS OF ARM 11/05/2013 MADL [employer] OPERATOR, RICARDO L 782.3 EDEMA 11/05/2013 MADL [employer] OPERATOR, RICARDO L 782.3 EDEMA 11/05/2013 MADL [employer] OPERATOR, RICARDO L 782.3 EDEMA 11/05/2013 MADL [employer] OPERATOR, RICARDO L 782.3 EDEMA 11/05/2013 MADL [employer] OPERATOR, RICARDO L 782.3 EDEMA 11/05/2013 CHRISTIANO CARRERA PSYD L 782.3 EDEMA 11/05/2013 MADL [employer] OPERATOR, RICARDO L 782.3 EDEMA 11/05/2013 MADL [employer] OPERATOR, RICARDO L 782.3 EDEMA 11/05/2013 BON PORTER DO K 782.3 EDEMA 11/05/2013 CHRISTIANO CARRERA PSYD L 782.3 EDEMA 11/05/2013 MADL [employer] OPERATOR, IRCARDO L 782.3 EDEMA 11/05/2013 MADL [employer] OPERATOR, RICARDO L 782.3 EDEMA 11/05/2013 MADL [employer] OPERATOR, RICARDO L 782.3 EDEMA 11/05/2013 CHRISTIANO CARRERA PSYD L 782.3 EDEMA 11/05/2013 MADL [employer] OPERATOR, RICARDO L 782.3 EDEMA 11/05/2013 MADL [employer] OPERATOR, RICARDO L 782.3 EDEMA 11/05/2013 MADL [employer] OPERATOR, RICARDO L 782.3 EDEMA 11/05/2013 PORTER , BON K 782.3 EDEMA 11/05/2013 MADL [employer] OPERATOR, RICARDO L 782.3 EDEMA 11/05/2013 CHRISTIANO CARRERA PSYD L 782.3 EDEMA 11/20/2013 GERMAN RUSHING, BON K Ot 305.1 TOBACCO USE DISORDER 11/20/2013 GERMAN RUSHING, BON K Ot 682.3 CELLULITIS OF ARM 11/24/2013 MADL [employer] OPERATOR, RICARDO L 686.8 OTHER SPECIFIED LOCAL INFECTIONS OF SKIN AND SUBCUTANEOUS TISSUE 11/24/2013 MADL [employer] OPERATOR, RICARDO L 686.8 OTHER SPECIFIED LOCAL INFECTIONS OF SKIN AND SUBCUTANEOUS TISSUE 11/24/2013 CHRISTIANO CARRERA PSYD L 686.8 OTHER SPECIFIED LOCAL INFECTIONS OF SKIN AND SUBCUTANEOUS TISSUE 11/24/2013 MADL [employer] OPERATOR, RICARDO L 686.8 OTHER SPECIFIED LOCAL INFECTIONS OF SKIN AND SUBCUTANEOUS TISSUE 11/24/2013 MADL [employer] OPERATOR, RICARDO L 686.8 OTHER SPECIFIED LOCAL INFECTIONS OF SKIN AND SUBCUTANEOUS TISSUE 11/24/2013 PORTER BON K 686.8 OTHER SPECIFIED LOCAL INFECTIONS OF SKIN AND SUBCUTANEOUS TISSUE 11/24/2013 CHRISTIANO CARRERA PSYD L 686.8 OTHER SPECIFIED LOCAL INFECTIONS OF SKIN AND SUBCUTANEOUS TISSUE 11/24/2013 MADL [employer] OPERATOR, RICARDO L 686.8 OTHER SPECIFIED LOCAL INFECTIONS OF SKIN AND SUBCUTANEOUS TISSUE 11/24/2013 MADL [employer] OPERATOR, RICARDO L 686.8 OTHER SPECIFIED LOCAL INFECTIONS OF SKIN AND SUBCUTANEOUS TISSUE 11/24/2013 MADL [employer] OPERATOR, RICARDO L 686.8 OTHER SPECIFIED LOCAL INFECTIONS OF SKIN AND SUBCUTANEOUS TISSUE 11/24/2013 CHRISTIANO CARRERA PSYD L 686.8 OTHER SPECIFIED LOCAL INFECTIONS OF SKIN AND SUBCUTANEOUS TISSUE 11/24/2013 MADL [employer] OPERATOR, RICARDO L 686.8 OTHER SPECIFIED LOCAL INFECTIONS OF SKIN AND SUBCUTANEOUS TISSUE 11/24/2013 MADL [employer] OPERATOR, RICARDO L 686.8 OTHER SPECIFIED LOCAL INFECTIONS OF SKIN AND SUBCUTANEOUS TISSUE 11/24/2013 MADL [employer] OPERATOR, RICARDO L 686.8 OTHER SPECIFIED LOCAL INFECTIONS OF SKIN AND SUBCUTANEOUS TISSUE 11/24/2013 BON PORTER DO 686.8 OTHER SPECIFIED LOCAL INFECTIONS OF SKIN AND SUBCUTANEOUS TISSUE 11/24/2013 MADL [employer] OPERATOR, RICARDO L 686.8 OTHER SPECIFIED LOCAL INFECTIONS [...] BODY MASS INDEX 40.0-44.9, ADULT 02/07/2014 MADL [employer] OPERATOR, RICARDO L 787.02 NAUSEA ALONE 02/07/2014 MADL [employer] OPERATOR, RICARDO L 787.02 NAUSEA ALONE 02/07/2014 MADL [employer] OPERATOR, RICARDO L 787.02 NAUSEA ALONE 02/07/2014 CHRISTIANO CARRERA PSYD L 787.02 NAUSEA ALONE 02/07/2014 MADL [employer] OPERATOR, RICARDO L 787.02 NAUSEA ALONE 02/07/2014 MADL [employer] OPERATOR, RICARDO L 787.02 NAUSEA ALONE 02/07/2014 MADL [employer] OPERATOR, RICARDO L 787.02 NAUSEA ALONE 02/07/2014 BON PORTER DO K 787.02 NAUSEA ALONE 02/07/2014 MADL [employer] OPERATOR, RICARDO L 787.02 NAUSEA ALONE 02/07/2014 CHRISTIANO CARRERA PSYD L 787.02 NAUSEA ALONE 04/18/2014 MADL [employer] OPERATOR, RICARDO L 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 04/18/2014 MADL [employer] OPERATOR, RICARDO L 296.34 MO DEPRESSIVE RECURRENT SEVERE [...] 09/23/2014 Ot 722.52 09/23/2014 OMAYRA ANDERSON, HEMA Perry Ot 787.60 09/23/2014 KUSHAL RIOS MD Ot [...] KUSHAL RIOS MD Ot 722.52 11/09/2014 KUSHAL IROS MD Ot 724.6 11/09/2014 KUSHAL RIOS MD Ot 729.1 11/09/2014 KUSHAL RIOS MD Ot V58.69 11/09/2014 KUSHAL RIOS MD Ot V85.38 11/09/2014 KUSHAL RIOS MD Ot 724.6 11/09/2014 KUSHAL RIOS MD Ot V64.1 11/09/2014 Ot 789.01 11/09/2014 Ot 575.8 11/09/2014 Ot V72.63 11/09/2014 Ot V74.8 11/30/2014 RICARDO ROGERS Ot 724.2 12/14/2014 AURA PEPE APRN Ot 611.71 01/06/2015 AURA PEPE [employer] OPERATOR Ot 611.71 04/05/2015 Ot 722.52 04/05/2015 HEMA [...] R19.4 CHANGE IN BOWEL HABIT 09/15/2015 RIO CAES DO Ot K92.1 MELENA 09/15/2015 CASE RIO D Ot R19.4 CHANGE IN BOWEL HABIT 10/13/2015 ARYA ANDERSON, RIANNA Clay Ot F17.210 NICOTINE DEPENDENCE, CIGARETTES, UNCOMPL [...] M54.16 RADICULOPATHY, LUMBAR REGION 10/23/2015 HECTOR MONSIVAIS [employer] OPERATOR Ot F17.210 NICOTINE DEPENDENCE, CIGARETTES, UNCOMPL 10/23/2015 HECTOR MONSIVAIS [employer] OPERATOR Ot G89.29 OTHER CHRONIC PAIN 10/23/2015 HECTOR MONSIVAIS [employer] OPERATOR Ot M54.5 LOW BACK PAIN 10/23/2015 HECTOR MONSIVAIS [employer] OPERATOR Ot N39.0 URINARY TRACT INFECTION, SITE NOT SPECIF 10/24/2015 HECTOR MONSIVAIS [employer] OPERATOR Ot G89.29 OTHER CHRONIC PAIN 10/24/2015 HECTOR MONSIVAIS [employer] OPERATOR Ot M54.5 LOW BACK PAIN 10/24/2015 HECTOR MONSIVAIS [employer] OPERATOR Ot N39.0 URINARY TRACT INFECTION, SITE NOT SPECIF 10/24/2015 HECTOR MONSIVAIS [employer] OPERATOR Ot F17.210 NICOTINE DEPENDENCE, CIGARETTES, UNCOMPL 10/24/2015 HECTOR MONSIVAIS [employer] OPERATOR Ot G89.29 OTHER CHRONIC PAIN 10/24/2015 HECTOR MONSIVAIS [employer] OPERATOR Ot M54.5 LOW BACK PAIN 10/24/2015 HECTOR MONSIVAIS [employer] OPERATOR Ot N39.0 URINARY TRACT INFECTION, SITE NOT [...] 11/03/2015 SHAISTA WILSON Ot Y92.000 [facility] OF [facility] NON-INSTITUT (PRIVATE) R 11/03/2015 SHAISTA WILSON [...] 11/06/2015 SHAISTA WILSON Ot Y92.000 [facility] OF [facility] NON-INSTITUT (PRIVATE) R 11/06/2015 SHAISTA WILSON [...] SCREEN- BACTERIAL DIS NEC 04/16/2016 RICARDO ROGERS MOUNTAIN GUIDE Ot 724.2 LUMBAGO 04/16/2016 AURA PEPE [employer] OPERATOR Ot 611.71 MASTODYNIA 04/16/2016 KUSHAL RIOS MD, [...] MD Ot G89.4 CHRONIC PAIN SYNDROME 04/26/2016 KUSHAL RIOS MD Ot M51.36 OTHER INTERVERTEBRAL DISC DEGENERATION, 04/26/2016 KUSHAL RIOS MD Ot M54.5 LOW BACK PAIN 04/29/2016 KUSHAL RIOS MD Ot G89.4 CHRONIC PAIN SYNDROME 04/29/2016 KUSHAL RIOS MD Ot M51.36 OTHER INTERVERTEBRAL DISC DEGENERATION, 04/29/2016 KUSHAL RIOS MD Ot M54.5 LOW BACK PAIN 05/02/2016 KUSHAL ROIS MD Ot G89.4 CHRONIC PAIN SYNDROME 05/02/2016 [...] BACTERIAL DIS NEC 03/12/2017 MADL, RICARDO L [employer] GUIDE Ot 724.2 LUMBAGO 03/12/2017 AURA PEPE APRN Ot 611.71 MASTODYNIA 03/12/2017 KUSHAL RIOS MD Ot M54.5 LOW BACK PAIN 03/27/2017 MADL, RICARDO L [employer] GUIDE Ot J32.8 OTHER CHRONIC SINUSITIS 03/27/2017 MADL, RICARDO L MOUNTAIN GUIDE Ot R42 DIZZINESS AND GIDDINESS 04/08/2017 MADL, RICARDO L MOUNTAIN GUIDE Ot J32.8 OTHER CHRONIC SINUSITIS 04/08/2017 MADL, RICARDO L MOUNTAIN GUIDE Ot R42 DIZZINESS AND GIDDINESS 04/08/2017 EKATERINA [...] SCREEN- BACTERIAL DIS NEC 04/10/2017 RICARDO ROGERS MOUNT[employer] GUIDE Ot 724.2 LUMBAGO 04/10/2017 AURA PEPE APRN Ot 611.71 MASTODYNIA 04/10/2017 KUSHAL RIOS MD Ot M54.5 LOW BACK PAIN 04/10/2017 RICARDO ROGERSP Ot J32.8 OTHER CHRONIC SINUSITIS 04/10/2017 RICARDO ROGERS MOUNT[employer] GUIDE Ot R42 DIZZINESS AND GIDDINESS 04/10/2017 EKATERINA MADSEN DO Ot M51.36 OTHER INTERVERTEBRAL DISC DEGENERATION, 04/10/2017 EKATERINA MADSEN DO Ot Z96.89 PRESENCE OF OTHER SPECIFIED FUNCTIONAL I 04/15/2017 EKATERINA MADSEN DO Ot M54.16 RADICULOPATHY, LUMBAR REGION 04/17/2017 EKATERINA MADSEN DO Ot M54.16 RADICULOPATHY, LUMBAR REGION 04/25/2017 EKATERINA MADSEN DO Ot M54.16 RADICULOPATHY, LUMBAR REGION 05/10/2017 QIANA MARTINEZ MD, Ot E03.9 HYPOTHYROIDISM, UNSPECIFIED 05/10/2017 QIANA MARTINEZ MD, Ot E11.9 TYPE 2 DIABETES MELLITUS WITHOUT COMPLIC 05/10/2017 QIANA MARTINEZ MD Ot E78.00 PURE HYPERCHOLESTEROLEMIA, UNSPECIFIED 05/10/2017 QIANA MARTINEZ MD Ot F17.210 NICOTINE DEPENDENCE, CIGARETTES, UNCOMPL 05/10/2017 QIANA MARTINEZ MD, Ot F32.9 MAJOR DEPRESSIVE DISORDER, SINGLE EPISOD 05/10/2017 QIANA MARTINEZ MD, Ot F41.9 ANXIETY DISORDER, UNSPECIFIED 05/10/2017 QIANA MARTINEZ MD, Ot K21.9 GASTRO-ESOPHAGEAL REFLUX DISEASE WITHOUT 05/10/2017 QIANA MARTINEZ MD, Ot K59.00 CONSTIPATION, UNSPECIFIED 05/10/2017 QIANA MARTINEZ MD Ot R10.11 RIGHT UPPER QUADRANT PAIN 05/10/2017 QIANA MARTINEZ MD, Ot R11.2 NAUSEA WITH VOMITING, UNSPECIFIED 05/10/2017 QIANA MARTINEZ MD Ot Z79.84 CORRECTION (CURRENT) USE OF ORAL HYPOGLYC 05/10/2017 QIANA MARTINEZ MD, Ot Z86.14 PERSONAL HISTORY OF METHICILLIN RESIS ST 05/10/2017 QIANA MARTINEZ MD, Ot Z87.01 PERSONAL HISTORY OF PNEUMONIA (RECURRENT 05/10/2017 QIANA MARTINEZ MD, Ot Z90.49 ACQUIRED ABSENCE OF OTHER SPECIFIED PART 05/10/2017 QIANA MARTINEZ MD, Ot Z90.710 ACQUIRED ABSENCE OF BOTH CERVIX AND UTER 05/10/2017 QIANA MARTINEZ MD, Ot Z93.0 TRACHEOSTOMY STATUS 05/13/2017 RICARDO ROGERS Ot R55 SYNCOPE AND COLLAPSE Procedures Code Description [place] [address] INDIV PSYTX 45/50 MIN 03/12/2012 18019 CULTURE WOUND (AEROBIC) 03/12/2012 86985 ROUTINE VENIPUNCTURE 03/25/2012 55918 ESR/SED RATE 03/25/2012 51786 CBC 03/25/2012 55635 CMP 03/25/2012 56749 LIPID PANEL 03/25/2012 1205340 GFR CALC (RESULT ONLY) 03/25/2012 11999 CRP 03/26/2012 26643 VITAMIN D 25-HYDROXY (D2,D3 , TOTAL) 03/26/2012 50352 TSH 03/26/2012 76173 URIC ACID 03/26/2012 38692 ASO 03/26/2012 21990 RA FACTOR 03/26/2012 ANAANA SANFORD ANALYZER (SCREEN) 03/26/2012 06333 INDIV PSYTX 45/50 MIN 03/27/2012 75682 INDIV PSYTX 45/50 MIN 04/08/2012 38648 INDIV PSYTX 45/50 MIN 04/22/2012 18903 XRAY CHEST 2 VIEW 06/30/2012 72229 XRAY LUMBAR SPINE 2 OR 3 VIEWS 07/16/2012 64185 MRI SPINE (LUMBAR) W & W/O CONTRAST 07/16/2012 60799 PSYCH PHARM MGMT 07/17/2012 42115 PSYTX PT&/FAMILY 45 MINUTES 07/28/2012 64359 ROUTINE VENIPUNCTURE 08/26/2012 31686 URINE DRUG SCREEN (IN-HOUSE ) 08/26/2012 77481 LIVER PANEL (LFT) 08/26/2012 35437 T4 FREE 08/27/2012 80197 TSH 08/27/2012 61221 HEPATITIS PROFILE 08/27/2012 88619 ROUTINE VENIPUNCTURE 10/13/2012 79727 URINE DRUG SCREEN (IN-HOUSE ) 10/13/2012 71857 VITAMIN D 25-HYDROXY (D2,D3 , TOTAL) 10/13/2012 60398 TSH 10/13/2012 19032 T4 FREE 10/13/2012 81650 URINE DRUG SCREEN (IN-HOUSE ) 11/10/2012 01423 MRI SPINE (LUMBAR) W/O CONTRAST 11/13/2012 37780 PSYTX PT&/FAMILY 45 MINUTES 12/31/2012 91582 ROUTINE VENIPUNCTURE 02/12/2013 38412 TSH 02/12/2013 52721 T4 FREE 02/12/2013 43814 PSYTX PT&/FAMILY 45 MINUTES 03/16/2013 71450 URINE DRUG SCREEN (IN-HOUSE ) 03/16/2013 95312 PSYTX PT&/FAMILY 45 MINUTES 05/27/2013 90303 ROUTINE VENIPUNCTURE 07/06/2013 61364 URINE DRUG SCREEN (IN-HOUSE ) 07/06/2013 23073 T4 FREE 07/06/2013 22830 TSH 07/06/2013 82463 ROUTINE VENIPUNCTURE 10/06/2013 8863889 GFR CALC (RESULT ONLY) 10/06/2013 06036 CMP 10/06/2013 91664 TSH 10/06/2013 27919 ROUTINE VENIPUNCTURE 11/22/2013 41930 CBC 11/22/2013 02315 I/D SIMPLE ABSCESS 11/24/2013 19766 PSYTX PT&/FAMILY 45 MINUTES 12/02/2013 06920 ROUTINE VENIPUNCTURE 01/05/2014 0372765 GFR CALC (RESULT ONLY) 01/05/2014 66232 BMP 01/05/2014 80965 TSH 01/05/2014 04213 PSYTX PT&/FAMILY 45 MINUTES 02/03/2014 89147 PSYTX PT&/FAMILY 45 MINUTES 04/05/2014 49010 ROUTINE VENIPUNCTURE 06/20/2014 7050082 GFR CALC (RESULT ONLY) 06/20/2014 65462 CMP 06/20/2014 22839 TSH 06/20/2014 85582 HIDA SCAN 06/21/2014 42516 PSYTX PT&/FAMILY 45 MINUTES 09/02/2014 Results Test [...] Staphylococcus aureus (MRSA) screening culture NEG NRG Complete blood count (CBC) with automated white blood cell (WBC) differential - 05/10/17 21:50 Blood leukocytes automated count (number/volume) 11.6 10*3/uL 4.3-11.0 Blood erythrocytes automated count (number/volume) 4.11 10*6/uL 4.35-5.85 Venous blood hemoglobin measurement (mass/volume) 12.9 g/dL 11.5-16.0 Blood hematocrit (volume fraction) 38 % 35-52 Automated erythrocyte mean corpuscular volume 93 [foz_us] 80-99 Automated erythrocyte mean corpuscular hemoglobin (mass per erythrocyte) 31 pg 25-34 Automated erythrocyte mean corpuscular hemoglobin concentration measurement ( mass/volume) 34 g/dL 32-36 Automated erythrocyte distribution width ratio 14.0 % 10.0-14.5 Automated blood platelet count (count/volume) 330 10*3/uL 130-400 Automated blood platelet mean volume measurement 9.4 [foz_us] 7.4-10.4 Automated blood neutrophils/100 leukocytes 58 % 42-75 Automated blood lymphocytes/100 leukocytes 30 % 12-44 Blood monocytes/100 leukocytes 8 % 0-12 Automated blood eosinophils/100 leukocytes 3 % 0-10 Automated blood basophils/100 leukocytes 1 % 0-10 Blood neutrophils automated count (number/volume) 6.8 10*3 1.8-7.8 Blood lymphocytes automated count (number/volume) 3.4 10*3 1.0-4.0 Blood monocytes automated count (number/volume) 1.0 10*3 0.0-1.0 Automated eosinophil count 0.4 10*3/uL 0.0-0.3 Automated blood basophil count (count/volume) 0.1 10*3/uL 0.0-0.1 Complete urinalysis with reflex to culture - 05/10/17 21:50 Urine color determination YELLOW NRG Urine clarity determination SLIGHTLY CLOUDY NRG Urine pH measurement by test strip 8 5-9 Specific gravity of urine by test strip 1.010 1.016- 1.022 Urine protein assay by test strip, semi-quantitative NEGATIVE NEGATIVE Urine glucose detection by automated test strip NEGATIVE NEGATIVE Erythrocytes detection in urine sediment by light microscopy NEGATIVE NEGATIVE Urine ketones detection by automated test strip NEGATIVE NEGATIVE Urine nitrite detection by test strip NEGATIVE NEGATIVE Urine total bilirubin detection by test strip NEGATIVE NEGATIVE Urine urobilinogen measurement by automated test strip (mass/volume) 4 mg/dL NORMAL Urine leukocyte esterase detection by dipstick 1+ NEGATIVE Automated urine sediment erythrocyte count by microscopy (number/high power field) NONE NRG Automated urine sediment leukocyte count by microscopy (number/high power field ) [HPF] NRG Bacteria detection in urine sediment by light microscopy MODERATE NRG Squamous epithelial cells detection in urine sediment by light microscopy 10-25 NRG Crystals detection in urine sediment by light microscopy NONE NRG Casts detection in urine sediment by light microscopy NONE NRG Mucus detection in urine sediment by light microscopy MODERATE NRG Complete urinalysis with reflex to culture NO NRG Comprehensive metabolic panel - 05/10/17 21:50 Serum or plasma sodium measurement (moles/volume) 141 mmol/L 135-145 Serum or plasma potassium measurement (moles/volume) 3.6 mmol/L 3.6-5.0 Serum or plasma chloride measurement (moles/volume) 103 mmol/L 98-107 Carbon dioxide 26 mmol/L 21-32 Serum or plasma anion gap determination (moles/volume) 12 mmol/L 5-14 Serum or plasma urea nitrogen measurement (mass/volume) 11 mg/dL 7-18 Serum or plasma creatinine measurement (mass/volume) 0.84 mg/dL 0.60-1.30 Serum or plasma urea nitrogen/creatinine mass ratio 13 NRG Serum or plasma creatinine measurement with calculation of estimated glomerular filtration rate > NRG Serum or plasma glucose measurement (mass/volume) 99 mg/dL 70-105 Serum or plasma calcium measurement (mass/volume) 9.5 mg/dL 8.5-10.1 Serum or plasma total bilirubin measurement (mass/volume) 0.6 mg/dL 0.1-1.0 Serum or plasma alkaline phosphatase measurement (enzymatic activity/volume) 69 U/L 40-136 Serum or plasma aspartate aminotransferase measurement (enzymatic activity/ volume) 20 U/L 5-34 Serum or plasma alanine aminotransferase measurement (enzymatic activity/volume ) 31 U/L 0-55 Serum or plasma protein measurement (mass/volume) 7.4 g/dL 6.4-8.2 Serum or plasma albumin measurement (mass/volume) 4.2 g/dL 3.2-4.5 Lipase - 05/10/17 21:50 Lipase 42 U/L 8-78 Encounters ACCT No. Visit Date/Time Discharge Status Pt. Type Provider Facility Loc./Unit Complaint [id number] 09/02/2014 12:56:00 09/02/2014 23:59:59 CLS Outpatient CHRISTIANO CARRERA PSYD [id number] 08/23/2014 11:03:00 08/23/2014 23:59:59 CLS Outpatient MADL [employer]RO[employer], RICARDO L [id number] 07/18/2014 13:57:00 07/18/2014 23:59:59 CLS Outpatient BON PORTER DO [id number] 06/20/2014 13:39:00 06/20/2014 23:59:59 CLS Outpatient MADL [employer], RICARDO L [id number] 05/19/2014 10:54:00 05/19/2014 23:59:59 CLS Outpatient MADL [employer], RICARDO L [id number] 04/19/2014 13:18:00 04/19/2014 23:59:59 CLS Outpatient MADL [employer], RICARDO L [id number] 04/05/2014 12:43:00 04/05/2014 23:59:59 CLS Outpatient CHRISTIANO CARRERA PSYD [id number] 03/09/2014 10:36:00 03/09/2014 23:59:59 CLS Outpatient MADL [employer], RICARDO L [id number] 02/07/2014 13:08:00 02/07/2014 23:59:59 CLS Outpatient MADL [employer], RICARDO L [id number] 02/03/2014 12:38:00 02/03/2014 23:59:59 CLS Outpatient CHRISTIANO CARRERA PSYD [id number] 01/11/2014 17:20:00 01/11/2014 23:59:59 CLS Outpatient BON PORTER DO [id number] 01/05/2014 13:39:00 01/05/2014 23:59:59 CLS Outpatient MADL [employer], RICARDO L [id number] 12/08/2013 10:37:00 12/08/2013 23:59:59 CLS Outpatient MADL [employer] OPERATORRICARDO L [id number] 12/02/2013 14:47:00 12/02/2013 23:59:59 CLS Outpatient CHRISTIANO CARRERA PSYD [id number] 11/26/2013 10:08:00 11/26/2013 23:59:59 CLS Outpatient MADL [employer], RICARDO L [id number] 11/24/2013 11:20:00 11/24/2013 23:59:59 CLS Outpatient MADL [employer]PER[employer], RICARDO L [id number] 11/22/2013 10:08:00 11/22/2013 23:59:59 CLS Outpatient MADL [employer]PER[employer], RICARDO L [id number] 11/22/2013 10:08:00 11/22/2013 23:59:59 CLS Outpatient MADL [employer] O[employer], RICARDO L [id number] 11/17/2013 15:27:00 11/17/2013 23:59:59 CLS Outpatient MADL [employer] OPER[employer], RICARDO L [id number] 11/05/2013 08:48:00 11/05/2013 23:59:59 CLS Outpatient MADL [employer] OPERATOR, RICARDO L [id number] 10/06/2013 10:59:00 10/06/2013 23:59:59 CLS Outpatient MADL [employer], RICARDO L [id number] 09/06/2013 11:01:00 09/06/2013 23:59:59 CLS Outpatient LIZ KUMARRen RUBEN DARBY [id number] 07/06/2013 10:37:00 07/06/2013 23:59:59 CLS Outpatient HEMA CUTLER MD [id number] 05/24/2013 12:37:00 05/24/2013 23:59:59 CLS Outpatient CHRISTIANO CARRERA PSYD [id number] 04/28/2013 13:39:00 04/28/2013 23:59:59 CLS Outpatient MEGAN MENCHACA APRN [id number] 04/05/2013 08:48:00 04/05/2013 23:59:59 CLS Outpatient HILL [employer] OPERATORRUBEN [id number] 03/15/2013 13:49:00 03/15/2013 23:59:59 CLS Outpatient CHRISTIANO CARRERA PSYD [id number] 02/12/2013 14:55:00 02/12/2013 23:59:59 CLS Outpatient OMAYRA ANDERSON, HEMA Perry [id number] 02/01/2013 10:24:00 02/01/2013 23:59:59 CLS Outpatient RUBEN HILL APRN [id number] 07/27/2012 10:48:00 07/27/2012 23:59:59 CLS Outpatient CHRISTIANO CARRERA PSYD [id number] 07/16/2012 11:37:00 07/16/2012 23:59:59 CLS Outpatient BON PORTER DO [id number] 06/30/2012 15:34:00 06/30/2012 23:59:59 CLS Outpatient BON PORTER DO [id number] 06/16/2012 09:22:00 06/16/2012 23:59:59 CLS Outpatient [id number] 04/22/2012 09:05:00 04/22/2012 23:59:59 CLS Outpatient CHRISTIANO CARRERA PSYD [id number] 03/12/2012 13:41:00 03/12/2012 23:59:59 CLS Outpatient CHRISTIANO CARRERA PSYD [id number] 12/31/2012 12:35:00 Document Registration [id number] 11/19/2012 00:00:00 Document Registration [id number] 11/10/2012 10:04:00 Document Registration [id number] 10/13/2012 14:49:00 Document Registration [id number] 10/05/2012 00:00:00 Document Registration [id number] 09/09/2012 00:00:00 Document Registration [id number] 09/07/2012 00:00:00 Document Registration [id number] 08/26/2012 13:34:00 Document Registration [id number] 08/20/2012 11:06:00 Document Registration [id number] 06/17/2017 10:26:00 06/17/2017 23:59:59 CLS Outpatient STEFANIE ANDERSON, KINZA He [facility] CARD R00.2 HEART PALPITATIONS [id number] 05/10/2017 20:12:00 05/10/2017 22:53:00 DIS Emergency JUAN ANDERSON, QIANA Snell [facility] ER STOMACH PAIN UPPER RIGHT SIDE [id number] 04/23/2017 11:38:00 04/23/2017 23:59:59 CLS Outpatient RICARDO ORGERS [employer] [facility] RAD NEAR SYNCOPE [id number] 04/10/2017 13:32:00 04/10/2017 23:59:59 CLS Outpatient EKATERINA MADSEN DO [facility] CARD M54.16 LUMBAR RADICULOPATHY [id number] 03/21/2017 10:45:00 03/21/2017 23:59:59 CLS Outpatient EKATERINA MADSEN DO [facility] RAD M54.16 [id number] 03/21/2017 10:41:00 03/21/2017 23:59:59 CLS Outpatient RICARDO ROGERS [employer] [facility] RAD DIZZINESS [id number] 02/25/2017 09:05:00 02/25/2017 11:48:00 DIS Emergency JEREMIAS HERNANDEZ MD [facility] ER BREATHING DIFFICULTIES [id number] 02/24/2017 23:18:00 02/25/2017 00:02:00 DIS Emergency RICHAR FRENCH MD [facility] ER POSS BRONCHITIS [id number] 02/05/2017 19:29:00 02/05/2017 22:02:00 DIS Emergency SHAISTA WILSON [facility] ER LEFT KNEE INJ [id number] 04/26/2016 06:00:00 04/26/2016 11:00:00 DIS Outpatient KUSHAL RIOS MD [facility] SDC CPS [id number] 04/23/2016 12:25:00 04/23/2016 12:58:00 DIS Outpatient KUSHAL RIOS MD [facility] PREOP CPS [id number] 04/16/2016 12:04:00 04/16/2016 15:07:00 DIS Emergency SHAISTA WILSON [facility] ER COUGH/CHEST CONGESTION [id number] 12/25/2015 22:30:00 12/25/2015 22:56:00 DIS Emergency QIANA MARTINEZ MD [facility] ER BACK PAIN,LEG PAIN [id number] 12/12/2015 15:19:00 12/12/2015 16:39:00 DIS Emergency JUAN ANDERSON, QIANA Snell [facility] ER BACK PAIN [id number] 11/14/2015 09:03:00 11/14/2015 23:59:59 CLS Outpatient KUSHAL RIOS MD [facility] RAD LOW BACK PAIN [id number] 11/14/2015 00:13:00 11/14/2015 01:47:00 DIS Emergency JUAN ANDERSON, QIANA Snell [facility] ER PAIN IN LOWER BACK [id number] 11/10/2015 08:32:00 11/10/2015 08:40:00 DIS Emergency JEREMIAS HERNANDEZ MD [facility] ER STAPLE REMOVAL [id number] 11/03/2015 19:34:00 11/03/2015 22:01:00 DIS Emergency SHAISTA WILSON [facility] ER HEAD INJ/BLEEDING [id number] 10/23/2015 13:49:00 10/23/2015 15:00:00 DIS Emergency HECTOR MONSIVAIS [employer] [facility] ER BACK PAIN [id number] 10/17/2015 18:58:00 10/17/2015 20:51:00 DIS Emergency SHAISTA WILSON [facility] ER LEG WEAKNESS [id number] 10/13/2015 21:56:00 10/13/2015 23:38:00 DIS Emergency RIANNA KOENIG MD [facility] ER MID-LOWER BACK PAIN,BILAT HIP PAIN [id number] 09/14/2015 11:40:00 09/14/2015 15:50:00 DIS Outpatient RIO CASE DO [facility] CHANGE IN BOWEL MOVEMENTS [id number] 09/06/2015 05:37:00 09/06/2015 10:28:00 DIS Outpatient RIO CASE DO [facility] PREOP CHANGE IN BOWEL MOVEMENTS [id number] 12/12/2014 08:52:00 12/12/2014 23:59:59 CLS Outpatient AURA PEPE [employer] [facility] RAD BI BREAST PAIN [id number] 11/09/2014 10:08:00 11/09/2014 23:59:59 CLS Outpatient RICARDO ROGERS [employer] [facility] RAD LUMBAGO [id number] 09/23/2014 09:17:00 09/23/2014 10:53:00 DIS Outpatient KUSHAL RIOS MD [facility] CARD SIJD [id number] 06/01/2014 12:46:00 06/01/2014 16:52:00 DIS Emergency SHAISTA WILSON [facility] ER RIGHT SIDE PAIN [id number] 05/09/2014 15:45:00 05/09/2014 23:59:59 CLS Preadmit KUSHAL RIOS MD [facility] CARD SIJD [id number] 01/28/2014 09:31:00 01/28/2014 11:23:00 DIS Outpatient KUSHAL RIOS MD [facility] CARD SIJD [id number] 11/19/2013 12:56:00 11/20/2013 12:30:00 DIS Inpatient GERMAN RUSHING BON K [facility] 4TH ABSCESS AND CELLULITIS OF LEFT AXILLA [id number] 11/19/2013 09:14:00 11/19/2013 23:59:59 CLS Outpatient KUSHAL RIOS MD [facility] CARD SACROILLIAC JOINT DISFUNCTION [id number] 10/25/2013 12:13:00 10/25/2013 23:59:59 CLS Outpatient KUSHAL RIOS MD [facility] CARD SIJ DSYFUNCTION [id number] 10/12/2013 18:38:00 10/12/2013 19:15:00 DIS Emergency HECTOR MONSIVAIS APRN [facility] ER POSS ABSCESS [id number] 09/27/2013 12:53:00 09/27/2013 14:08:00 DIS Outpatient KUSHAL RIOS MD [facility] CARD SACROILLIAC JOINT DSYFUNCTION [id number] 08/30/2013 13:43:00 08/30/2013 14:54:00 DIS Outpatient KUSHAL RIOS MD [facility] CARD DDD LUMBAR [id number] 07/23/2013 06:47:00 07/23/2013 23:59:59 CLS Outpatient KUSHAL RIOS MD [facility] CARD LUMBAR SPONDYLOSIS [id number] 07/16/2013 08:24:00 07/16/2013 09:16:00 DIS Outpatient KUSHAL RIOS MD [facility] CARD LUMBAR SPONDYLOSIS [id number] 05/22/2013 09:31:00 05/22/2013 11:27:00 DIS Emergency JEREMIAS HERNANDEZ MD [facility] ER FLU LIKE SYM [id number] 02/07/2013 15:16:00 02/07/2013 18:55:00 DIS Emergency RIANNA KOENIG MD [facility] ER SOA [id number] 11/17/2012 10:22:00 11/17/2012 23:59:59 CLS Outpatient HEMA CUTLER MD [facility] RAD ACUTE STOOL INCONTINENCE [id number] 11/06/2012 10:09:00 11/06/2012 15:59:00 DIS Emergency EVON VERAS MD [facility] ER UTI SYMPTOMS [id number] 11/05/2012 13:11:00 11/05/2012 15:54:00 DIS Emergency JEREMIAS HERNANDEZ MD [facility] ER LEAKING STOOL AND URINE BACK PAIN [id number] 11/03/2012 12:35:00 11/03/2012 15:10:00 DIS Emergency SHAISTA WILSON [facility] ER RIGHT LEG SPIDER BITE/ ABSCESS DIARRHEA [id number] 07/14/2017 23:00:00 ACT Emergency VIDAL GALEANA DO [facility] ER TROUBLE BREATHING [id number] 05/31/2015 18:03:00 Document Registration [id number] 09/23/2014 09:18:00 Document Registration [id number] 09/23/2014 09:17:00 Document Registration [id number] 08/01/2014 08:02:00 Document Registration [id number] 07/22/2014 11:24:00 Document Registration [id number] 01/13/2012 19:06:00 Document Registration
--- NOTE | 2017-07-14 23:25 | ED Cough/URI ---
General Chief Complaint: Cough/Cold/Flu Symptoms Stated Complaint: TROUBLE BREATHING Source: patient History of Present Illness Date Seen by Provider: Jul 14, 2017 Time Seen by Provider: 22:59 Initial Comments PT ARRIVES VIA POV FROM HOME C/O "FLU SYMPTOMS" X 1 WEEK--STATES SHE HAD NAUSEA/VOMITING/DIARRHEA LAST WEEK, NONE SINCE MALE WITH PT WAS SEEN LAST WEEK AND WAS TOLD HE HAD "THE FLU" BUT NO TESTS WERE DONE PT STATES SHE HAS HAD A PRODUCTIVE COUGH X 1 WEEK--YELLOW/BROWN SPUTUM C/O SHORTNESS OF BREATH SINCE LAST PM--PT HAS ASTHMA/COPD AND HAS COMBIVENT INHALER THAT SHE USES ONCE A DAY EVERY DAY--USED AT 10:30 AM TODAY. C/O NASAL CONGESTION C/O HEADACHE HAD FEVER OF 101.4 LAST WEEK, HAS NOT CHECKED TEMP SINCE THEN BUT STATES SHE IS STILL HAVING MILD SWEATS AND CHILLS AT TIMES HAS NOT SOUGHT CARE UNTIL TODAY HAS NOT TAKEN ANYTHING ELSE FOR SYMPTOMS PT IS DIABETIC, STATES BLOOD SUGARS HAVE BEEN RUNNING IN 110'S TO 120--WAS 119 EARLIER TODAY PCP: DOUG, SARA ROGERS Allergies and Home Medications Allergies Coded Allergies: methocarbamol (Unverified Allergy, Unknown, 10/13/15) fentanyl (Verified Adverse Reaction, Unknown, 11/19/13) Home Medications Albuterol/Ipratropium 4 Gm Aero, 1 PUFF IH QID, (Reported) Alprazolam 1 Mg Tab.rapdis, 1.5 MG PO TID, (Reported) TAKE 1 1/2 (1MG) TABLET Azithromycin 500 Mg Tablet, 500 MG PO DAILY FOR INFECTION Prescribed by: VIDAL GALEANA on 07/14/172352 Benzonatate 100 Mg Capsule, 1-2 TAB PO TID Prescribed by: VIDAL GALEANA on 07/14/172352 Budesonide 90 Mcg Aer.pow.ba, 90 MCG IH BID Prescribed by: VIDAL GALEANA on 07/14/172352 Cefdinir 300 Mg Capsule, 300 MG PO BID Prescribed by: VIDAL GALEANA on 07/14/172352 Diclofenac Sodium 75 Mg Tablet.dr, 75 MG PO BID, (Reported) Furosemide 20 Mg Tablet, 20 MG PO DAILY PRN for swelling, (Reported) Guaifenesin/Dextromethorphan 1 Each Tbmp.12hr, 1 EACH PO BID Prescribed by: VIDAL GALEANA on 07/14/172352 Levothyroxine Sodium 150 Mcg Tablet, 150 MCG PO DAILY, (Reported) Methylprednisolone 4 Mg Tab.ds.pk, 4 MG PO UD Prescribed by: VIDAL GALEANA on 07/14/172352 Potassium Chloride 10 Meq Tablet.er, 10 MEQ PO DAILY PRN for take with lasix, ( Reported) Prednisone 20 Mg Tab, 40 MG PO DAILY Prescribed by: JEREMIAS HERNANDEZ on 02/25/17 114 Pregabalin 75 Mg Capsule, 75 MG PO BID, (Reported) Tizanidine HCl 4 Mg Tablet, 8 TAB PO TID, (Reported) take 2 (4mg) tabs Trazodone HCl 100 Mg Tablet, 100 MG PO HS, (Reported) Vortioxetine Hydrobromide 10 Mg Tablet, 10 MG PO DAILY, (Reported) Patient Home Medication List Home Medication List Reviewed: Yes Constitutional: see HPI EENTM: see HPI, nose congestion Respiratory: see HPI, cough, short of breath Cardiovascular: no symptoms reported Gastrointestinal: no symptoms reported Genitourinary: no symptoms reported Musculoskeletal: no symptoms reported Skin: no symptoms reported Psychiatric/Neurological: No Symptoms Reported Hematologic/Lymphatic: No Symptoms Reported Immunological/Allergic: no symptoms reported Past Dhcsvtn-Tdvkbe-Cdlyzx Hx Patient Social History Alcohol Use: Denies Use Recreational Drug Use: No Smoking Status: Current Everyday Smoker (1 PPD) Type Used: Cigarettes (1 PPD) 2nd Hand Smoke Exposure: Yes Recent Foreign Travel: No Contact w/Someone Who Travel: No Recent Hopitalizations: No Immunizations Up To Date Tetanus Booster (TDap): Unknown Seasonal Allergies Seasonal Allergies: No Surgeries History of Surgeries: Yes (dahlia & screws right arm, chest tube, tracheostomy, bx right lung, DENTAL; [employer]INAL CORD STIMULATOR 2015) Surgeries: Gallbladder, Hysterectomy, Orthopedic, Tracheostomy Respiratory History of Respiratory Disorde: Yes (surgical bx for pneumonia/on ventilator 1995) Respiratory Disorders: Asthma, Pneumonia, Chronic Bronchitis, COPD Currently Using CPAP: No Currently Using BIPAP: No Cardiovascular History of Cardiac Disorders: Yes Cardiac Disorders: High Cholesterol Neurological History of Neurological Disord: Yes (lumbar neural foraminal stenosis) Reproductive System Hx Reproductive Disorders: Yes 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 Genitourinary History of Genitourinary Disor: No Gastrointestinal History of Gastrointestinal Di: Yes Gastrointestinal Disorders: Gastroesophageal Reflux Musculoskeletal History of Musculoskeletal Dis: Yes (lumbar neuroforaminal stenosis;SPINAL CORD STIMULATOR 2016) Musculoskeletal Disorders: Degenerate Disk Disease, Chronic Back Pain, Fractures Endocrine History of Endocrine Disorders: Yes Endocrine Disorders: Hypothyroidsim, Diabetes, Non-Insulin dep HEENT History of HEENT Disorders: No Cancer History of Cancer: No Psychosocial History of Psychiatric Problem: Yes Behavioral Health Disorders: Anxiety, Depression Integumentary History of Skin or Integumenta: Yes (h/o mrsa infection ) Blood Transfusions History of Blood Disorders: No Family Medical History Significant Family History: No Pertinent Family Hx Physical Exam Vital Signs Vital Signs - First Documented Capillary Refill : General Appearance: no apparent distress (SITTING GUATEMALAN-STYLE, CALMLY. DOES NOT APPEAR TO BE IN ANY DISCOMFORT OR DISTRESS WHATSOEVER. ), obese, other ( MALODOROUS, REEKS OF SMOKE) HEENT: PERRL/EOMI Neck: normal inspection Respiratory: no respiratory distress, no accessory muscle use, expiration ( DIFFUSE BILATERAL EXPIRATORY WHEEZING) Cardiovascular: regular rate, rhythm, no edema, no JVD, no murmur Gastrointestinal: normal bowel sounds, non tender, soft Extremities: normal inspection, no pedal edema, no calf tenderness, normal capillary refill Neurologic/Psychiatric: job coach II-XII nml as tested, no motor/sensory deficits, alert, normal mood/affect, oriented x 3 Skin: normal color, warm/dry Progress/Results/Core Measures Suspected Sepsis SIRS Temperature: Pulse: Respiratory Rate: Blood Pressure / Mean: Results/Orders My Orders Orders - VIDAL GALEANA DO Chest Pa/Lat (2 View) (07/14/17 23:06) Albuterol/Ipra Inhalation Soln (Duoneb I (07/14/17 23:30) Rt Request For Service (07/14/17 23:17) Svn Sm Volume Nebulizer Rt-Rfs (07/14/17 23:17) Albuterol/Ipra Inhalation Soln (Duoneb I (07/15/17 00:00) Rt Request For Service (07/14/17 23:49) Svn Sm Volume Nebulizer Rt-Rfs (07/14/17 23:49) Ceftriaxone Injection (Rocephin Injectio (07/15/17 00:00) Methylprednisolone Sod Succ (Solu-Medrol (07/14/17 23:49) Lidocaine 1% Injection (Xylocaine 1% Inj (07/15/17 00:00) Benzonatate Capsule (Tessalon Perles) (07/15/17 00:00) Azithromycin Tablet (Zithromax Tablet) (07/15/17 00:00) Albuterol/Ipra Inhalation Soln (Duoneb I (07/15/17 00:15) Svn Sm Volume Nebulizer Rt-Rfs (07/15/17 00:05) Lidocaine 1% (Xylocaine 1%) (07/15/17 00:03) Ceftriaxone Injection (Rocephin Injectio (07/15/17 00:03) Methylprednisolone Sod Succ (Solu-Medrol (07/15/17 00:02) Methylprednisolone Sod Succ (Solu-Medrol (07/15/17 00:14) Benzonatate Capsule (Tessalon Perles) (07/15/17 00:03) Azithromycin Tablet (Zithromax Tablet) (07/15/17 00:02) Medications Given in ED Current Medications Medications Dose Ordered Sig/Bridgette Route Start Time Stop Time Status Last Admin Dose Admin Albuterol/ Ipratropium 3 ml ONCE ONCE INH 07/14/17 23:30 07/14/17 23:31 DC 07/14/17 23:33 3 ML Albuterol/ Ipratropium 3 ml ONCE ONCE INH 07/15/17 00:00 07/15/17 00:53 DC 07/14/17 23:58 3 ML Albuterol/ Ipratropium 3 ml ONCE ONCE INH 07/15/17 00:15 07/15/17 00:16 DC 07/15/17 00:08 3 ML Ceftriaxone Sodium 1,000 mg ONCE ONCE IM 07/15/17 00:00 07/15/17 00:53 DC 07/15/17 00:11 1,000 MG Lidocaine HCl 2.1 ml ONCE ONCE INJ 07/15/17 00:00 07/15/17 00:53 DC 07/15/17 00:13 2.1 ML Vital Signs/I&O Vital Sign - Last 12Hours 07/14/17 07/14/17 07/14/17 07/14/17 23:00 23:00 23:33 23:58 Temp 97.8 Pulse 84 Resp 20 B/P (MAP) 125/68 (87) Pulse Ox 94 92 93 O2 Delivery Room Air Room Air Room Air Room Air 07/15/17 07/15/17 07/15/17 07/15/17 00:08 00:11 00:11 00:13 Temp 97.8 97.8 97.8 Pulse Ox 92 O2 Delivery Room Air 07/15/17 00:53 Temp 97.2 Pulse 120 Resp 20 B/P (MAP) 91/37 Pulse Ox 98 O2 Delivery Room Air Capillary Refill : Progress Note : Progress Note LUNGS CLEAR AFTER DUO NEB TREATMENTS X3 O2 SATS REMAINED IN MID 90'S ON ROOM THROUGHOUT ER STAY Diagnostic Imaging Comments CXR--? RML INFILTRATE? PENDING RADIOLOGIST REVIEW Reviewed: Reviewed by Me Departure Impression Impression: Primary Impression: COPD (chronic obstructive pulmonary disease) with acute bronchitis Additional Impressions: POSSIBLE PNEUMONIA Smoker Disposition: HOME, SELF-CARE Condition: Improved Departure-Patient Inst. Referrals: BON PORTER DO (PCP) Primary Care Physician RICARDO ROGERS (Family) Primary Care Physician Patient Instructions: Acute Bronchitis, Adult (DC), COPD Including Emphysema ( DC), Pneumonia, Adult (DC), Quitting Smoking, Smoking: Not Just Harmful to Your Lungs and Heart Add. Discharge Instructions: USE YOUR COMBIVENT INHALER WITH SPACER EVERY 4 HOURS NEEDED FOR BREATHING NO SMOKING LOTS OF CLEAR LIQUIDS TYLENOL AND MOTRIN NEEDED FOR PAIN FOLLOW UP WITH [facility] IN 3-4 DAYS FOR FURTHER CARE RETURN TO ER IF SYMPTOMS WORSEN All discharge instructions reviewed with patient and/or family. Voiced understanding. Scripts Budesonide (Pulmicort Flexhaler) 90 Mcg Aer.pow.ba 90 MCG IH BID, #1 GM Prov: VIDAL GALEANA DO 07/14/17 Methylprednisolone (Medrol) 4 Mg Tab.ds.pk 4 MG PO UD, #1 PKG Prov: VIDAL GALEANA DO 07/14/17 Guaifenesin/Dextromethorphan (Mucinex Dm ER 1,200-60 mg Tab) 1 Each Tbmp.12hr 1 EACH PO BID for 10 Days, #20 EA Prov: VIDAL GALEANA DO 07/14/17 Benzonatate (Tessalon Perle) 100 Mg Capsule 1-2 TAB PO TID for Cough, #30 CAP Prov: VIDAL GALEANA DO 07/14/17 Azithromycin (Zithromax) 500 Mg Tablet 500 MG PO DAILY, #5 TAB FOR INFECTION Prov: VIDAL GALEANA DO 07/14/17 Cefdinir (Cefdinir) 300 Mg Capsule 300 MG PO BID for FOR INFECTION, #20 CAP Prov: VIDAL GALEANA DO 07/14/17 VIDAL GALEANA DO Jul 14, 2017 23:24
[2017-07-14] MEDS ORDERED: RT-ALBUTEROL/IPRATROPIUM 3 ML (DUONEB) VIAL INH ONE (23:30)
[2017-07-14] MEDS ORDERED: methylPREDNISolone 125 MG (Solu-MEDROL) VIAL IM STA (23:49)
[2017-07-14] MEDS ORDERED: BUDE90AE2 IH (23:53)
[2017-07-14] MEDS ORDERED: BENZ-13 PO (23:53)
[2017-07-14] MEDS ORDERED: GUAI1TBM19 PO (23:53)
[2017-07-14] MEDS ORDERED: AZIT500T PO (23:53)
[2017-07-14] MEDS ORDERED: CEFD300C3 PO (23:53)
[2017-07-14] MEDS ORDERED: METH4TAB PO (23:53)
[2017-07-15] MEDS ORDERED: cefTRIAXone 1 GM (ROCEPHIN) VIAL IM ONE
[2017-07-15] MEDS ORDERED: LIDOCAINE 1% INJ 20 ML (XYLOCAINE) VIAL INJ ONE
[2017-07-15] MEDS ORDERED: BENZONATATE 100 MG (TESSALON) CAPSULE PO SCH
[2017-07-15] MEDS ORDERED: AZITHROMYCIN 250 MG TAB (ZITHROMAX) PO SCH
[2017-07-15] MEDS ORDERED: methylPREDNISolone 125 MG (Solu-MEDROL) VIAL ONE ×2 (00:02→00:14)
[2017-07-15] MEDS ORDERED: AZITHROMYCIN 250 MG TAB (ZITHROMAX) PO ONE (00:02)
[2017-07-15] MEDS ORDERED: LIDOCAINE 1% INJ 50 ML (XYLOCAINE) VIAL ONE (00:03)
[2017-07-15] MEDS ORDERED: BENZONATATE 100 MG (TESSALON) CAPSULE PO ONE (00:03)
[2017-07-15] MEDS ORDERED: cefTRIAXone 1 GM (ROCEPHIN) VIAL ONE (00:03)
[2017-07-15] MEDS ORDERED: RT-ALBUTEROL/IPRATROPIUM 3 ML (DUONEB) VIAL INH ONE ×2 (00:15)
[2017-07-15 00:53] VITALS: BP 91/37
--- NOTE | 2017-07-15 06:39 | Diagnostic Imaging Report ---
INDICATION: Cough and congestion. FINDINGS: Heart size is normal. The mediastinum is unremarkable. There is no pleural effusion or pneumothorax. Patchy infiltrate in the right middle lobe. IMPRESSION: Patchy infiltrate in the right middle lobe suspect for early pneumonia. Dictated by: Dictated on workstation # [id number]
[2017-07-16] MEDS ORDERED: TRAZ150T72 PO (08:12)
[2017-07-16] MEDS ORDERED: BUSP5TAB59 PO (08:12)
[2017-07-16] MEDS ORDERED: ASCO-262 PO (08:12)
[2017-07-16] MEDS ORDERED: OMG1KC PO (08:12)
[2017-07-16] MEDS ORDERED: ALPR0.5T7 PO (08:12)
[2017-07-16] MEDS ORDERED: LOVA20TA2 PO (08:12)
== END 2017-07-15 00:53 | disposition home or self-care (01) ==
LOC: EDUNIT# 22:59 → ER 23:00
DX: J44.0 Chronic obstructive pulmonary disease with (acute) lower respiratory infection (principal); J20.9 Acute bronchitis, unspecified; F41.9 Anxiety disorder, unspecified; F32.9 Major depressive disorder, single episode, unspecified; E03.9 Hypothyroidism, unspecified; E11.9 Type 2 diabetes mellitus without complications; M47.9 Spondylosis, unspecified; K21.9 Gastro-esophageal reflux disease without esophagitis; E78.00 Pure hypercholesterolemia, unspecified; F17.210 Nicotine dependence, cigarettes, uncomplicated; Z90.89 Acquired absence of other organs; Z90.710 Acquired absence of both cervix and uterus; Z87.01 Personal history of pneumonia (recurrent); Z79.52 Long term (current) use of systemic steroids; Z88.8 Allergy status to other drugs, medicaments and biological substances; Z88.6 Allergy status to analgesic agent
CPT/HCPCS: 71046; 94640; 94664

== ENCOUNTER 2017-07-15 18:13 | Inpatient (IN) | payer MEDICAID ==
[~2017-07-15] VITALS: Ht 175.3 cm; Wt 122.9 kg
[~2017-07-15 18:13] MED LIST changes: +AZIT500T PO; +BENZ-13 PO; +BUDE90AE2 IH; +CEFD300C3 PO; +GUAI1TBM19 PO; +METH4TAB PO
--- OUTSIDE RECORDS SUMMARY | 2017-07-15 18:18 | XMS REPORT | Clinical Summary ---
Author Author [facility] Organization [facility] Address Unknown Phone Unavailable Care Team Providers Care Detacker Name Role Phone ThomasSusy sullivan ARABELLA PCP Source Comments Some departments are not documenting in the electronic medical record. If you do not see the information that you expected, contact Release of Information in the Health Information Management department at [phone] for further assistance in locating additional records.[facility] Allergies Not on File Current Medications [...]
[2017-07-15] MEDS ORDERED: methylPREDNISolone 125 MG (Solu-MEDROL) VIAL IV STA (18:26)
[2017-07-15] MEDS ORDERED: DEXAMETHASONE 4 MG/ML SDV (DECADRON) IH ONE (18:30)
[2017-07-15] MEDS ORDERED: RT-ALBUTEROL/IPRATROPIUM 3 ML (DUONEB) VIAL INH ONE ×2 (18:30→20:15)
[2017-07-15 18:51] LABS: BASOPHILS % (AUTO) 0 % (0-10); EOSINOPHILS % (AUTO) 0 % (0-10); HEMATOCRIT 37 % (35-52); HEMOGLOBIN 12.7 G/DL (11.5-16.0); LYMPHOCYTES # (AUTO) 1.5 X 10^3 (1.0-4.0); LYMPHOCYTES % (AUTO) 7 % (12-44); MEAN CORPUSCULAR HEMOGLOBIN 32 PG (25-34); MEAN CORPUSCULAR HGB CONC 34 G/DL (32-36); MEAN CORPUSCULAR VOLUME 92 FL (80-99); MEAN PLATELET VOLUME 9.4 FL (7.4-10.4); MONOCYTES # (AUTO) 0.9 X 10^3 (0.0-1.0); MONOCYTES % (AUTO) 4 % (0-12); NEUTROPHILS # (AUTO) 19.8 X 10^3 (1.8-7.8); NEUTROPHILS % (AUTO) 89 % (42-75); PLATELET COUNT 371 10^3/uL (130-400); RED BLOOD COUNT 4.03 10^6/uL (4.35-5.85); RED CELL DISTRIBUTION WIDTH 13.9 % (10.0-14.5); WHITE BLOOD COUNT 22.3 10^3/uL (4.3-11.0)
--- NOTE | 2017-07-15 18:57 | ED Respiratory ---
General Chief Complaint: Respiratory Problems Stated Complaint: TROUBLE BREATHING Source: patient, old records History of Present Illness Date Seen by Provider: Jul 15, 2017 Time Seen by Provider: 18:28 Initial Comments PT ARRIVES VIA POV FROM HOME C/O SHORTNESS OF BREATH PT SEEN IN ER LAST PM FOR SAME PT HAS HAD SYMPTOMS X 1 WEEK--HAD NAUSEA/VOMITING/DIARRHEA AND FEVER OF 101.4 LAST WEEK, IN ADDITION TO A PRODUCTIVE COUGH WITH YELLOW/BROWN SPUTUM PT HAS NOT HAD FEVER SINCE SHE WAS HERE LAST PM BEGAN HAVING SHORTNESS OF BREATH 2 NIGHTS AGO. PT HAS COMBIVENT INHALER AT HOME ( HAS COPD/ASHTMA. WAS SENT HOME WITH SPACER LAST PM. PT STATES SHE USED IT ONE TIME, THIS AM. PT STATES SHE USES IT ONCE A DAY EVERY DAY--STATES SHE HAS NEVER BEEN PRESCRIBED A SPACER OR A MAINTENANCE / PREVENTATIVE INHALER SUCH A STEROID INHALER, BEFORE I PRESCRIBED THEM LAST NIGHT) PT WAS INSTRUCTED LAST PM TO USE IT EVERY 4 HOURS, WHICH SHE DID NOT DO-- DID NOT USE IT AT ALL LAST PM PT FILLED RX'S TODAY, BUT PHARMACY WAS OUT OF PULMICORT INHALER, SO WAS NOT ABLE TO PICK THAT MEDICATION UP. PT CONTINUES TO SMOKE 1 PPD DID NOT ATTEMPT TO CONTACT OR FOLLOW UP AT [facility] TODAY PT WITH MULTIPLE VISITS, MANY FOR BRONCHITIS/RESPIRATORY COMPLAINTS. OTHERS FOR VARIOUS PAIN COMPLAINTS. [facility] Allergies and Home Medications Allergies Coded Allergies: methocarbamol (Unverified Allergy, Unknown, 10/13/15) fentanyl (Verified Adverse Reaction, Unknown, 11/19/13) Home Medications Albuterol/Ipratropium 4 Gm Aero, 1 PUFF IH QID, (Reported) Alprazolam 1 Mg Tab.rapdis, 1.5 MG PO TID, (Reported) TAKE 1 1/2 (1MG) TABLET Azithromycin 500 Mg Tablet, 500 MG PO DAILY FOR INFECTION Prescribed by: VIDAL GALEANA on 07/14/172352 Benzonatate 100 Mg Capsule, 1-2 TAB PO TID Prescribed by: VIDAL GALEANA on 07/14/172352 Budesonide 90 Mcg Aer.pow.ba, 90 MCG IH BID Prescribed by: VIDAL GALEANA on 07/14/172352 Cefdinir 300 Mg Capsule, 300 MG PO BID Prescribed by: VIDAL GALEANA on 07/14/172352 Diclofenac Sodium 75 Mg Tablet.dr, 75 MG PO BID, (Reported) Furosemide 20 Mg Tablet, 20 MG PO DAILY PRN for swelling, (Reported) Guaifenesin/Dextromethorphan 1 Each Tbmp.12hr, 1 EACH PO BID Prescribed by: VIDAL GALEANA on 07/14/172352 Levothyroxine Sodium 150 Mcg Tablet, 150 MCG PO DAILY, (Reported) Methylprednisolone 4 Mg Tab.ds.pk, 4 MG PO UD Prescribed by: VIDAL GALEANA on 07/14/172352 Potassium Chloride 10 Meq Tablet.er, 10 MEQ PO DAILY PRN for take with lasix, ( Reported) Prednisone 20 Mg Tab, 40 MG PO DAILY Prescribed by: JEREMIAS HERNANDEZ on 02/25/17 114 Pregabalin 75 Mg Capsule, 75 MG PO BID, (Reported) Tizanidine HCl 4 Mg Tablet, 8 TAB PO TID, (Reported) take 2 (4mg) tabs Trazodone HCl 100 Mg Tablet, 100 MG PO HS, (Reported) Vortioxetine Hydrobromide 10 Mg Tablet, 10 MG PO DAILY, (Reported) Patient Home Medication List Home Medication List Reviewed: Yes Constitutional: no symptoms reported EENTM: see HPI, nose congestion Respiratory: see HPI, cough Cardiovascular: no symptoms reported Gastrointestinal: no symptoms reported Genitourinary: no symptoms reported Musculoskeletal: no symptoms reported Skin: no symptoms reported Psychiatric/Neurological: No Symptoms Reported Hematologic/Lymphatic: No Symptoms Reported Immunological/Allergic: no symptoms reported Past Odyrsst-Zanjxg-Exaplr Hx Patient Social History Alcohol Use: Occasionally Uses Recreational Drug Use: No Smoking Status: Current Everyday Smoker (1 PPD) Type Used: Cigarettes (1 PPD) 2nd Hand Smoke Exposure: Yes Recent Foreign Travel: No Contact w/Someone Who Travel: No Recent Hopitalizations: No Immunizations Up To Date Tetanus Booster (TDap): Unknown Date of Influenza Vaccine: Feb 08, 2017 Seasonal Allergies Seasonal Allergies: Yes Surgeries History of Surgeries: Yes (RIGHT ARM FX/ORIF-RODS/SCREWS; BILATERAL CHEST TUBES AND TRACHESOSTOMY FOR PNEUMONIA; RIGHT LUNG BIOPSY; DENTAL SURGERY; SPINAL CORD STIMULATOR 2015; HYST/LSO) Surgeries: Gallbladder, Hysterectomy, Oophorectomy, Orthopedic, Tracheostomy Respiratory History of Respiratory Disorde: Yes (surgical bx for pneumonia/on ventilator WITH TRACH 1996) Respiratory Disorders: Asthma, Pneumonia, Chronic Bronchitis, COPD Currently Using CPAP: No Currently Using BIPAP: No Cardiovascular History of Cardiac Disorders: Yes Cardiac Disorders: High Cholesterol Neurological History of Neurological Disord: Yes (lumbar neural foraminal stenosis) Reproductive System Hx Reproductive Disorders: Yes 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 Genitourinary History of Genitourinary Disor: No Gastrointestinal History of Gastrointestinal Di: Yes Gastrointestinal Disorders: Gastroesophageal Reflux Musculoskeletal History of Musculoskeletal Dis: Yes (lumbar neuroforaminal stenosis;SPINAL CORD STIMULATOR 2016; RIGHT HIP PAIN ) Musculoskeletal Disorders: Degenerate Disk Disease, Chronic Back Pain, Fractures Endocrine History of Endocrine Disorders: Yes Endocrine Disorders: Hypothyroidsim, Diabetes, Non-Insulin dep HEENT History of HEENT Disorders: No Cancer History of Cancer: No Psychosocial History of Psychiatric Problem: Yes Behavioral Health Disorders: Anxiety, Depression Integumentary History of Skin or Integumenta: Yes (h/o mrsa infection ) Blood Transfusions History of Blood Disorders: No Family Medical History Significant Family History: No Pertinent Family Hx Physical Exam Vital Signs Vital Signs - First Documented 07/15/17 07/15/17 18:20 20:49 Temp 99.6 Pulse 70 Resp 16 B/P (MAP) 131/89 (103) Pulse Ox 88 O2 Delivery Room Air O2 Flow Rate 2.50 Capillary Refill : General Appearance: no apparent distress (PT SITTING GRENADIAN-STYLE. VERY CALM AND DOES NOT APPEAR TO BE IN ANY DISCOMFORT OR DISTRESS WHATSOEVER. MALODOROUS AND REEKS OF CIGARETTES, COVERED IN ANIMAL HAIR. ), obese, other (DOES NOT APPEAR ILL; REEKS OF CIGARETTES, MALODOROUS, COVERED IN ANIMAL HAIR. ) HEENT: PERRL/EOMI, other (NASAL MUCOSAL EDEMA. NO SINUS TENDERNESS, CLEAR POST NASAL DRAINAGE) Neck: normal inspection Respiratory: no respiratory distress, no accessory muscle use, wheezing ( COARSE EXPIRATORY WHEEZING BILATERALLY) Cardiovascular: normal peripheral pulses, regular rate, rhythm, no murmur Gastrointestinal: non tender, soft Extremities: normal inspection, no pedal edema, normal capillary refill Neurologic/Psychiatric: front end architect II-XII nml as tested, no motor/sensory deficits, alert, normal mood/affect, oriented x 3 Skin: normal color, warm/dry, tattoos/piercings (TATTOOS) Focused Exam Evaluation Lactate Level Laboratory Tests 07/15/17 18:40: Lactic Acid Level 3.78*H Lactic Acid Level Laboratory Tests Test 07/15/17 18:40 Lactic Acid Level 3.78 MMOL/L (0.50-2.00) *H Progress/Results/Core Measures Suspected Sepsis SIRS Temperature: Pulse: Respiratory Rate: Laboratory Tests 07/15/17 18:46: White Blood Count 22.3H Blood Pressure / Mean: Laboratory Tests 07/15/17 18:40: Lactic Acid Level 3.78*H Laboratory Tests 07/15/17 18:46: Creatinine 0.69, Platelet Count 371, Total Bilirubin 0.4 Results/Orders Lab Results Laboratory Tests Test 07/15/17 18:40 07/15/17 18:46 Range/Units Lactic Acid Level 3.78 *H 0.50-2.00 MMOL/L White Blood Count 22.3 H 4.3-11.0 10^3/uL Red Blood Count 4.03 L 4.35-5.85 10^6/uL Hemoglobin 12.7 11.5-16.0 G/DL Hematocrit 37 35-52 % Mean Corpuscular Volume 92 80-99 FL Mean Corpuscular Hemoglobin 32 25-34 PG Mean Corpuscular Hemoglobin Concent 34 32-36 G/DL Red Cell Distribution Width 13.9 10.0-14.5 % Platelet Count 371 130-400 10^3/uL Mean Platelet Volume 9.4 7.4-10.4 FL Neutrophils (%) (Auto) 89 H 42-75 % Lymphocytes (%) (Auto) 7 L 12-44 % Monocytes (%) (Auto) 4 0-12 % Eosinophils (%) (Auto) 0 0-10 % Basophils (%) (Auto) 0 0-10 % Neutrophils # (Auto) 19.8 H 1.8-7.8 X 10^3 Lymphocytes # (Auto) 1.5 1.0-4.0 X 10^3 Monocytes # (Auto) 0.9 0.0-1.0 X 10^3 Eosinophils # (Auto) 0.0 0.0-0.3 10^3/uL Basophils # (Auto) 0.0 0.0-0.1 10^3/uL Neutrophils % (Manual) 76 % Lymphocytes % (Manual) 11 % Monocytes % (Manual) 3 % Eosinophils % (Manual) 0 % Basophils % (Manual) 0 % Band Neutrophils 10 % Blood Morphology Comment NORMAL Sodium Level 140 135-145 MMOL/L Potassium Level 4.3 3.6-5.0 MMOL/L Chloride Level 105 98-107 MMOL/L Carbon Dioxide Level 20 L 21-32 MMOL/L Anion Gap 15 H 5-14 MMOL/L Blood Urea Nitrogen 6 L 7-18 MG/DL Creatinine 0.69 0.60-1.30 MG/DL Estimat Glomerular Filtration Rate > 60 BUN/Creatinine Ratio 9 Glucose Level 131 H 70-105 MG/DL Calcium Level 9.6 8.5-10.1 MG/DL Magnesium Level 1.9 1.8-2.4 MG/DL Total Bilirubin 0.4 0.1-1.0 MG/DL Aspartate Amino Transf (AST/SGOT) 15 5-34 U/L Alanine Aminotransferase (ALT/SGPT) 28 0-55 U/L Alkaline Phosphatase 60 40-136 U/L B-Type Natriuretic Peptide 165.5 H <100.0 PG/ML Total Protein 7.5 6.4-8.2 GM/DL Albumin 4.3 3.2-4.5 GM/DL Serum Test, Qualitative NEGATIVE NEGATIVE Micro Results Microbiology 07/15/17 Influenza Types A,B Antigen (ULISES) - Final, Complete My Orders Orders - VIDAL GALEANA DO Saline Lock/Iv-Start (07/15/17 18:) O2 (07/15/17 18:) Monitor-Rhythm Ecg Trace Only (07/15/17 18:) BNP (07/15/17 18:) Cbc With Automated Diff (07/15/17:) Comprehensive Metabolic Panel (07/15/17 18:) Drug Screen Stat (Urine) (07/15/17 18:) Blood Culture (07/15/17 18:) Chest Pa/Lat (2 View) (07/15/17 18:) Albuterol/Ipra Inhalation Soln (Duoneb I (07/15/17 18:30) Dexamethasone Injection (Decadron Inject (07/15/17 18:30) Rt Request For Service (07/15/17 18:) Methylprednisolone Sod Succ (Solu-Medrol (07/15/17 18:) Svn Sm Volume Nebulizer Rt-Rfs (07/15/17 18:26) Hcg,Qualitative Serum (07/15/17 18:26) Magnesium (07/15/17 18:26) Ua Culture If Indicated (07/15/17 18:26) Influenza A And B Antigens (07/15/17 18:26) Manual Differential (07/15/17 18:46) Ceftriaxone Injection (Rocephin Injectio (07/15/17 19:30) Ct Chest W (07/15/17 19:22) Iohexol Injection (Omnipaque 350 Mg/Ml 1 (07/15/17 19:30) Ns (Ivpb) (Sodium Chloride 0.9% Ivpb Bag (07/15/17 19:30) Albuterol/Ipra Inhalation Soln (Duoneb I (07/15/17 20:15) Svn Sm Volume Nebulizer Rt-Rfs (07/15/17 20:02) Lactic Acid Analyzer (07/15/17 20:32) Medications Given in ED Current Medications Medications Dose Ordered Sig/Bridgette Route Start Time Stop Time Status Last Admin Dose Admin Albuterol/ Ipratropium 3 ml ONCE ONCE INH 07/15/17 18:30 07/15/17 18:31 DC 07/15/17 18:43 3 ML Albuterol/ Ipratropium 3 ml ONCE ONCE INH 07/15/17 20:15 07/15/17 20:16 DC 07/15/17 20:41 3 ML Ceftriaxone Sodium 1000 mg/ Sodium Chloride 100 ml @ 200 mls/hr ONCE ONCE IV 07/15/17 19:30 07/15/17 19:59 DC 07/15/17 08:27 200 MLS/HR Dexamethasone Sodium Phosphate 20 mg ONCE ONCE IH 07/15/17 18:30 07/15/17 18:31 DC 07/15/17 18:43 20 MG Iohexol 100 ml ONCE ONCE IV 07/15/17 19:30 07/15/17 19:31 DC 07/15/17 19:48 100 ML Sodium Chloride 100 ml ONCE ONCE IV 07/15/17 19:30 07/15/17 19:31 DC 07/15/17 19:48 100 ML Vital Signs/I&O Vital Sign - Last 12Hours 07/15/17 07/15/17 18:20 20:49 Temp 99.6 Pulse 70 Resp 16 B/P (MAP) 131/89 (103) Pulse Ox 88 O2 Delivery Room Air Nasal Cannula O2 Flow Rate 2.50 Capillary Refill : Progress Note : Progress Note O2 SAT 88% ON ROOM AIR ON ARRIVAL-UP TO MID 90'S ON 2L/NC LUNGS CLEAR AFTER NEB TREATMENT X 2 NO DETERIORATION IN PT'S CONDITION DURING ER STAY Diagnostic Imaging Comments CXR--RML/RIGHT LUNG BASE INFILTRATE, UNCHANGED FROM PREVIOUS--PER RADIOLOGIST REPORT @ 1924 CT HEST--STABLE PATCHY INFILTRATES IN MIDDLE LOBE, MILD PATCHY OPACITIES IN LEFT UPPER LOBE--PER RADIOLOGIST REPORT @ 2024 Reviewed: Reviewed by Me Departure Communication (Admissions) Progress Notes 2032--SPOKE WITH DR. Kimi MANCILLA, ACCEPTS PT FOR ADMIT. Impression Impression: Primary Impression: RLL/RML/[place] PNEUMONIA WITH HYPOXIA, SEPSIS, INFLUENZA B Additional Impression: Smoker Disposition: ADMITTED INPATIENT Condition: Improved Admissions Decision to Admit Reason: Admit from ER (General) Decision to Admit/Date: Jul 15, 2017 Time/Decision to Admit Time: 20:30 Departure-Patient Inst. Referrals: BON PORTER DO (PCP) Primary Care Physician RICARDO ROGERS (Family) Primary Care Physician VIDAL GALEANA DO Jul 15, 2017 18:57
[2017-07-15 19:15] LABS: BAND NEUTROPHILS 10 %; BASOPHILS % (MANUAL) 0 %; EOSINOPHILS % (MANUAL) 0 %; LYMPHOCYTES % (MANUAL) 11 %; MONOCYTES % (MANUAL) 3 %; NEUTROPHILS % (MANUAL) 76 %; RBC MORPH NORMAL
[2017-07-15 19:18] LABS: ALANINE AMINOTRANSFERASE 28 U/L (0-55); ALBUMIN 4.3 GM/DL (3.2-4.5); ALKALINE PHOSPHATASE 60 U/L (40-136); BILIRUBIN,TOTAL 0.4 MG/DL (0.1-1.0); BUN/CREATININE RATIO 9; CALCIUM 9.6 MG/DL (8.5-10.1); CARBON DIOXIDE 20 MMOL/L (21-32); CHLORIDE 105 MMOL/L (98-107); CREATININE SERUM 0.69 MG/DL (0.60-1.30); GFR ESTIMATED > 60; GLUCOSE 131 MG/DL (70-105); MAGNESIUM 1.9 MG/DL (1.8-2.4); POTASSIUM 4.3 MMOL/L (3.6-5.0); SODIUM 140 MMOL/L (135-145); TOTAL PROTEIN 7.5 GM/DL (6.4-8.2)
--- NOTE | 2017-07-15 19:23 | Diagnostic Imaging Report ---
Clinical indication: Patient with progressive shortness of air. The patient was evaluated and treated in the ER last night but states she is worse. Patient has a back stimulator. Exam: Chest x-ray, PA and lateral views. Comparison: Chest x-ray dated 07/14/2017. Findings: There is no significant change to the patchy infiltrate in the middle lobe/right lung base region. The remainder of the lungs are clear. There is no pleural effusion or pneumothorax. Pulmonary vasculature and cardiac silhouette are within normal limits. The remainder of this exam shows no significant interval change compared to the prior study of comparison. Impression: Stable chest x-ray exam with middle lobe/right lung base infiltrate/pneumonia. Dictated by: Dictated on workstation # [id number]
[2017-07-15] MEDS ORDERED: NS 100 ML (IVPB) BAG IV ONE (19:30)
[2017-07-15] MEDS ORDERED: cefTRIAXone INJECTION 1,000 MG in NS (IVPB) 100 ML IV ONE (19:30)
[2017-07-15] MEDS ORDERED: IOHEXOL 350 MG/ML 100 ML (OMNIPAQUE 350) VIAL IV ONE (19:30)
--- NOTE | 2017-07-15 20:18 | Diagnostic Imaging Report ---
Clinical indication: Patient with trouble breathing and shortness of air. Exam: CT scan of the chest performed with 100 cc of Omnipaque 300 IV contrast. Coronal and sagittal reformatted images were created. Comparison: CT scan of the chest with contrast dated 07/17/2006. Findings: There is relatively stable appearing amorphous patchy infiltrates and curvilinear opacities in the middle lobe and is predominantly seen anteriorly with some pleural thickening/pleural reaction seen. There is a small parenchymal band involving the posterior aspect of left lower lobe concerning for atelectasis. There are subtle patchy infiltrates involving the left upper lobe which may represent infiltrate. The remainder of the lungs are clear. There is no pleural effusion pneumothorax. Pulmonary bronchi are unremarkable. Again seen are surgical clips in the low paratracheal region just inferior to the thyroid gland. Mediastinal structures are unremarkable with no lymphadenopathy. Stable bilateral axillary lymph nodes which are a subcentimeter in short axis. Limited visualization of the upper abdominal structures show no significant abnormality. There are degenerative spurs involving the thoracic spine. Impression: 1: There is development of mild patchy opacities in the left upper lobe which may represent infiltrate, infectious or inflammatory process. 2: Stable scarring in the middle lobe. 3: The remainder of the exam shows no other significant interval abnormality. Dictated by: Dictated on workstation # [id number]
[2017-07-15 21:10] VITALS: BP 138/66
[2017-07-15] MEDS ORDERED: RX-OSELTAMIVIR 75 MG (TAMIFLU) BOX OF 10 PO ONE (21:18)
[2017-07-15] MEDS ORDERED: AZITHROMYCIN 500 MG/NS 250 ML IVPB IV ONE ×2 (21:30)
[2017-07-15] MEDS ORDERED: CATHETER FLUSH 10 ML SYR IV PRN (21:30)
[2017-07-15] MEDS ORDERED: BENZONATATE 100 MG (TESSALON) CAPSULE PO PRN (21:30)
[2017-07-15] MEDS: OSELTAMIVIR 75 MG (TAMIFLU) BOX OF 10 PO SCH (21:38)
[2017-07-15] MEDS: CATHETER FLUSH 10 ML SYR IV SCH (21:46)
[2017-07-15] MEDS ORDERED: busPIRone 10 MG (BUSPAR) TAB ONE (22:04)
[2017-07-15] MEDS: traZODone 150 MG (DESYREL) TABLET PO SCH (22:19)
[2017-07-15] MEDS: busPIRone 5 MG (BUSPAR) TAB PO SCH (22:19)
[2017-07-15] MEDS: methylPREDNISolone 125 MG (Solu-MEDROL) VIAL IV SCH (23:10)
[2017-07-16] VITALS (8 sets, daily range): BP systolic 114–138; BP diastolic 56–71
[2017-07-16 05:24] LABS: BASOPHILS % (AUTO) 0 % (0-10); EOSINOPHILS % (AUTO) 0 % (0-10); HEMATOCRIT 36 % (35-52); LYMPHOCYTES # (AUTO) 1.5 X 10^3 (1.0-4.0); LYMPHOCYTES % (AUTO) 7 % (12-44); MEAN CORPUSCULAR HEMOGLOBIN 32 PG (25-34); MEAN CORPUSCULAR HGB CONC 34 G/DL (32-36); MEAN CORPUSCULAR VOLUME 94 FL (80-99); MEAN PLATELET VOLUME 9.5 FL (7.4-10.4); MONOCYTES # (AUTO) 0.6 X 10^3 (0.0-1.0); MONOCYTES % (AUTO) 3 % (0-12); NEUTROPHILS # (AUTO) 21.1 X 10^3 (1.8-7.8); NEUTROPHILS % (AUTO) 91 % (42-75); PLATELET COUNT 333 10^3/uL (130-400); RED BLOOD COUNT 3.81 10^6/uL (4.35-5.85); RED CELL DISTRIBUTION WIDTH 14.1 % (10.0-14.5); WHITE BLOOD COUNT 23.2 10^3/uL (4.3-11.0)
[2017-07-16 05:58] LABS: ALANINE AMINOTRANSFERASE 27 U/L (0-55); ALBUMIN 4.1 GM/DL (3.2-4.5); ALKALINE PHOSPHATASE 57 U/L (40-136); BILIRUBIN,TOTAL 0.3 MG/DL (0.1-1.0); BUN/CREATININE RATIO 11; CALCIUM 9.6 MG/DL (8.5-10.1); CARBON DIOXIDE 25 MMOL/L (21-32); CHLORIDE 106 MMOL/L (98-107); CREATININE SERUM 0.71 MG/DL (0.60-1.30); GFR ESTIMATED > 60; GLUCOSE 178 MG/DL (70-105); POTASSIUM 4.3 MMOL/L (3.6-5.0); SODIUM 140 MMOL/L (135-145); TOTAL PROTEIN 7.1 GM/DL (6.4-8.2)
[2017-07-16] MEDS: inSUlin (REGULAR) HUMAN 1 UNIT/0.01 ML (CHARGE PER UNIT) SC SCH ×4 (06:20→20:41)
[2017-07-16] MEDS: methylPREDNISolone 125 MG (Solu-MEDROL) VIAL IV SCH ×2 (06:38→11:40)
[2017-07-16] MEDS: CATHETER FLUSH 10 ML SYR IV SCH ×3 (06:38→23:01)
[2017-07-16] MEDS: RT-BUDESONIDE NEBS 0.5 MG/2ML (PULMICORT) AMP INH SCH ×2 (06:41→19:00)
[2017-07-16] MEDS: RT-ALBUTEROL/IPRATROPIUM 3 ML (DUONEB) VIAL INH SCH ×5 (06:41→22:07)
[2017-07-16] MEDS ORDERED: guaiFENesin (MUCINEX) 600 MG TAB PO PRN (07:45)
[2017-07-16] MEDS ORDERED: TRAZ150T72 PO (08:12)
[2017-07-16] MEDS ORDERED: BUSP5TAB59 PO (08:12)
[2017-07-16] MEDS ORDERED: ALPR0.5T7 PO (08:12)
[2017-07-16] MEDS ORDERED: OMG1KC PO (08:12)
[2017-07-16] MEDS ORDERED: ASCO-262 PO (08:12)
[2017-07-16] MEDS ORDERED: LOVA20TA2 PO (08:12)
[2017-07-16] MEDS: AZITHROMYCIN 250 MG TAB (ZITHROMAX) PO SCH (08:35)
[2017-07-16] MEDS: busPIRone 5 MG (BUSPAR) TAB PO SCH ×2 (08:35→20:40)
[2017-07-16] MEDS: PATCH REMOVAL TP SCH (08:35)
[2017-07-16] MEDS: NICOTINE 21 MG (NICODERM) PATCH TD SCH (08:35)
--- NOTE | 2017-07-16 14:42 | History & Physicial (CHS) ---
HPI History of Present Illness: Pleasant 41yo woman presented to hospital with complaints of shortness of breath. Patient states her fiance was sick a week ago on Friday, they on Friday, and she has worsened steadily since that time. She believes her fiance has given her the flu. She has been very weak since becoming sick. She has a deep cough which is sometimes productive of sputum. Tactile fevers at home. She has a history of COPD and tobacco use. Source: patient Exam Limitations: no limitations Date seen by provider: Jul 16, 2017 Time Seen by Provider: 09:00 Attending Physician Nando Floyd MD PCP Modesta De Jesus DO Consult Date of Admission Jul 15, 2017 at 20:52 Home Medications Home Medications Reviewed patient Home Medication Reconciliation Form Allergies Coded Allergies: methocarbamol (Unverified Allergy, Unknown, 10/13/15) fentanyl (Verified Adverse Reaction, Unknown, 11/19/13) SHJ-Pvvylh-Khzhuw Hx Patient Social History Marrital Status: Alcohol Use: Occasionally Uses Recreational Drug Use: No Smoking Status: Current Everyday Smoker Type Used: Cigarettes 2nd Hand Smoke Exposure: Yes Recent Foreign Travel: No Contact w/other who traveled: No Recent Hopitalizations: No Recent Infectious Disease Expo: No Physical Abuse Screen: No Sexual Abuse: No Immunizations Up To Date Tetanus Booster (TDap): Unknown Date of Influenza Vaccine: Feb 08, 2017 Family Medical History Significant Family History: No Pertinent Family Hx Family History: Patient reports no known family medical history. Review of Systems (CHC) Constitutional: no symptoms reported All Other Systems Reviewed Negative Unless Noted: Yes Reviewed Test Results Reviewed Test Results Lab Laboratory Tests Test 07/15/17 18:40 07/15/17 18:46 07/15/17 21:00 07/16/17 05:05 Range/Units Lactic Acid Level 3.78 *H 2.22 *H 0.50-2.00 MMOL/L White Blood Count 22.3 H 23.2 H 4.3-11.0 10^3/uL Red Blood Count 4.03 L 3.81 L 4.35-5.85 10^6/uL Hemoglobin 12.7 12.0 11.5-16.0 G/DL Hematocrit 37 36 35-52 % Mean Corpuscular Volume 92 94 80-99 FL Mean Corpuscular Hemoglobin 32 32 25-34 PG Mean Corpuscular Hemoglobin Concent 34 34 32-36 G/DL Red Cell Distribution Width 13.9 14.1 10.0-14.5 % Platelet Count 371 333 130-400 10^3/uL Mean Platelet Volume 9.4 9.5 7.4-10.4 FL Neutrophils (%) (Auto) 89 H 91 H 42-75 % Lymphocytes (%) (Auto) 7 L 7 L 12-44 % Monocytes (%) (Auto) 4 3 0-12 % Eosinophils (%) (Auto) 0 0 0-10 % Basophils (%) (Auto) 0 0 0-10 % Neutrophils # (Auto) 19.8 H 21.1 H 1.8-7.8 X 10^3 Lymphocytes # (Auto) 1.5 1.5 1.0-4.0 X 10^3 Monocytes # (Auto) 0.9 0.6 0.0-1.0 X 10^3 Eosinophils # (Auto) 0.0 0.0 0.0-0.3 10^3/uL Basophils # (Auto) 0.0 0.0 0.0-0.1 10^3/uL Neutrophils % (Manual) 76 % Lymphocytes % (Manual) 11 % Monocytes % (Manual) 3 % Eosinophils % (Manual) 0 % Basophils % (Manual) 0 % Band Neutrophils 10 % Blood Morphology Comment NORMAL Sodium Level 140 140 135-145 MMOL/L Potassium Level 4.3 4.3 3.6-5.0 MMOL/L Chloride Level 105 106 98-107 MMOL/L Carbon Dioxide Level 20 L 25 21-32 MMOL/L Anion Gap 15 H 9 5-14 MMOL/L Blood Urea Nitrogen 6 L 8 7-18 MG/DL Creatinine 0.69 0.71 0.60-1.30 MG/DL Estimat Glomerular Filtration Rate > 60 > 60 BUN/Creatinine Ratio 9 11 Glucose Level 131 H 178 H 70-105 MG/DL Calcium Level 9.6 9.6 8.5-10.1 MG/DL Magnesium Level 1.9 1.8-2.4 MG/DL Total Bilirubin 0.4 0.3 0.1-1.0 MG/DL Aspartate Amino Transf (AST/SGOT) 15 13 5-34 U/L Alanine Aminotransferase (ALT/SGPT) 28 27 0-55 U/L Alkaline Phosphatase 60 57 40-136 U/L B-Type Natriuretic Peptide 165.5 H <100.0 PG/ML Total Protein 7.5 7.1 6.4-8.2 GM/DL Albumin 4.3 4.1 3.2-4.5 GM/DL Serum Test, Qualitative NEGATIVE NEGATIVE Test 07/16/17 05:54 07/16/17 11:08 07/16/17 16:28 07/16/17 20:31 Range/Units Glucometer 209 H 255 H 159 H 248 H 70-110 MG/DL Test 07/17/17 05:35 07/17/17 06:30 07/17/17 12:06 Range/Units Glucometer 167 H 189 H 70-110 MG/DL White Blood Count 22.4 H 4.3-11.0 10^3/uL Red Blood Count 3.83 L 4.35-5.85 10^6/uL Hemoglobin 12.2 11.5-16.0 G/DL Hematocrit 36 35-52 % Mean Corpuscular Volume 94 80-99 FL Mean Corpuscular Hemoglobin 32 25-34 PG Mean Corpuscular Hemoglobin Concent 34 32-36 G/DL Red Cell Distribution Width 14.3 10.0-14.5 % Platelet Count 404 H 130-400 10^3/uL Mean Platelet Volume 9.3 7.4-10.4 FL Neutrophils (%) (Auto) 87 H 42-75 % Lymphocytes (%) (Auto) 8 L 12-44 % Monocytes (%) (Auto) 5 0-12 % Eosinophils (%) (Auto) 0 0-10 % Basophils (%) (Auto) 0 0-10 % Neutrophils # (Auto) 19.4 H 1.8-7.8 X 10^3 Lymphocytes # (Auto) 1.9 1.0-4.0 X 10^3 Monocytes # (Auto) 1.1 H 0.0-1.0 X 10^3 Eosinophils # (Auto) 0.0 0.0-0.3 10^3/uL Basophils # (Auto) 0.0 0.0-0.1 10^3/uL Sodium Level 139 135-145 MMOL/L Potassium Level 4.2 3.6-5.0 MMOL/L Chloride Level 102 98-107 MMOL/L Carbon Dioxide Level 26 21-32 MMOL/L Anion Gap 11 5-14 MMOL/L Blood Urea Nitrogen 10 7-18 MG/DL Creatinine 0.69 0.60-1.30 MG/DL Estimat Glomerular Filtration Rate > 60 BUN/Creatinine Ratio 14 Glucose Level 167 H 70-105 MG/DL Calcium Level 9.5 8.5-10.1 MG/DL Physical Exam-(CHC) Physical Exam Vital Signs VS - Last 72 Hours, by Label 07/15/17 07/15/17 07/15/17 07/15/17 18:20 20:49 21:10 21:30 Temp 99.6 98.2 Pulse 70 77 Resp 16 20 B/P (MAP) 131/89 (103) 138/66 (90) Pulse Ox 88 95 O2 Delivery Room Air Nasal Cannula Room Air Nasal Cannula O2 Flow Rate 2.50 07/15/17 07/15/17 07/16/17 07/16/17 23:05 23:18 00:15 00:23 Temp 98.3 Pulse 73 74 66 Resp 20 18 B/P (MAP) 131/89 114/58 (76) Pulse Ox 95 92 95 O2 Delivery Room Air Nasal Cannula Nasal Cannula O2 Flow Rate 2.50 3.00 07/16/17 07/16/17 07/16/17 07/16/17 02:18 02:38 04:15 06:41 Temp 97.6 97.6 Pulse 80 70 Resp 18 17 B/P (MAP) 126/63 (84) 135/71 (92) Pulse Ox 95 94 93 92 O2 Delivery Nasal Cannula Nasal Cannula Nasal Cannula Nasal Cannula O2 Flow Rate 2.50 3.00 3.00 2.50 07/16/17 07/16/17 07/16/17 07/16/17 06:50 08:00 08:35 10:25 Temp 97.2 Pulse 92 Resp 18 B/P (MAP) 134/56 (82) Pulse Ox 97 93 97 94 O2 Delivery Nasal Cannula Nasal Cannula Nasal Cannula Nasal Cannula O2 Flow Rate 2.50 3.00 2.50 2.50 07/16/17 07/16/17 07/16/17 07/16/17 11:41 12:00 13:50 16:00 Temp 97.2 98.1 99.1 Pulse 72 79 Resp 18 20 B/P (MAP) 128/65 (86) 131/64 (86) Pulse Ox 94 96 94 O2 Delivery Nasal Cannula Nasal Cannula Nasal Cannula O2 Flow Rate 3.00 2.00 3.00 07/16/17 07/16/17 07/16/17 07/16/17 19:01 19:06 20:00 20:40 Temp 97.8 Pulse 92 Resp 20 B/P (MAP) 135/61 (85) Pulse Ox 90 92 92 O2 Delivery Room Air Room Air Nasal Cannula Nasal Cannula O2 Flow Rate 3.00 2.50 07/16/17 07/17/17 07/17/17 07/17/17 22:07 00:00 02:10 04:00 Temp 97.8 98.3 Pulse 76 67 Resp 18 18 B/P (MAP) 116/59 (78) 110/55 (73) Pulse Ox 90 95 90 94 O2 Delivery Room Air Nasal Cannula Nasal Cannula Nasal Cannula O2 Flow Rate 2.00 2.00 2.00 07/17/17 07/17/17 07/17/17 07/17/17 06:16 06:21 08:00 08:20 Temp 97.5 Pulse 80 Resp 22 B/P (MAP) 119/58 (78) Pulse Ox 96 96 94 O2 Delivery Nasal Cannula Room Air Nasal Cannula Room Air O2 Flow Rate 3.00 2.00 07/17/17 07/17/17 07/17/17 12:00 12:06 13:40 Temp 98.1 Pulse 75 Resp 20 B/P (MAP) 132/62 (85) Pulse Ox 94 O2 Delivery Nasal Cannula Room Air O2 Flow Rate 2.00 Capillary Refill : Less Than 3 Seconds General Appearance: WD/WN, no apparent distress HEENT: PERRL/EOMI, normal ENT inspection, pharynx normal Neck: non-tender, full range of motion, supple, normal inspection Respiratory: decreased breath sounds, accessory muscle use, wheezing Cardiovascular: regular rate, rhythm, no edema, no gallop, no JVD, no murmur Gastrointestinal: normal bowel sounds, non tender, soft, no organomegaly, no pulsatile mass Back: normal inspection, no CVA tenderness, no vertebral tenderness Extremities: normal range of motion, non-tender, normal inspection, no pedal edema, no calf tenderness, normal capillary refill Neurologic/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 Assessment & Plan INFLUENZA B LEFT UPPER LOBE PNEUMONIA COPD W EXACERBATION TOBACCO ABUSE MORBID OBESITY ADMISSION: We will treat patient aggressively with steroids, IV antibiotics and supplemental oxgyen. We have started Tamiflu due to the secondary pneumonia and to reduce risk for further complications. DVT PROPH: ambulate TID Clinical Quality Measures DVT/VTE Risk/Contraindication: Risk Factor Score Per Nursin RFS Level Per Nursing on Admit: 3=High Copy Copies To 1: NANDO WALSH APRN, MD Jul 16, 2017 2:42 pm
[2017-07-16] MEDS: methylPREDNISolone 40 MG/ML (Solu-MEDROL) VIAL IV SCH ×2 (15:12→23:01)
[2017-07-16] MEDS ORDERED: cefTRIAXone 1 GM/NS 100 ML IVPB IV SCH ×2 (19:00)
[2017-07-16] MEDS: OSELTAMIVIR 75 MG (TAMIFLU) BOX OF 10 PO SCH (20:40)
[2017-07-16] MEDS: traZODone 150 MG (DESYREL) TABLET PO SCH (20:40)
[2017-07-17] VITALS: BP 116/59
[2017-07-17] MEDS: RT-ALBUTEROL/IPRATROPIUM 3 ML (DUONEB) VIAL INH SCH ×3 (02:10→12:06)
[2017-07-17 04:00] VITALS: BP 110/55
[2017-07-17] MEDS: inSUlin (REGULAR) HUMAN 1 UNIT/0.01 ML (CHARGE PER UNIT) SC SCH ×2 (05:52→12:16)
[2017-07-17] MEDS: methylPREDNISolone 40 MG/ML (Solu-MEDROL) VIAL IV SCH (05:52)
[2017-07-17] MEDS: CATHETER FLUSH 10 ML SYR IV SCH (05:52)
[2017-07-17] MEDS: RT-BUDESONIDE NEBS 0.5 MG/2ML (PULMICORT) AMP INH SCH (06:13)
[2017-07-17 06:39] LABS: BASOPHILS % (AUTO) 0 % (0-10); EOSINOPHILS % (AUTO) 0 % (0-10); HEMATOCRIT 36 % (35-52); HEMOGLOBIN 12.2 G/DL (11.5-16.0); LYMPHOCYTES # (AUTO) 1.9 X 10^3 (1.0-4.0); LYMPHOCYTES % (AUTO) 8 % (12-44); MEAN CORPUSCULAR HEMOGLOBIN 32 PG (25-34); MEAN CORPUSCULAR HGB CONC 34 G/DL (32-36); MEAN CORPUSCULAR VOLUME 94 FL (80-99); MEAN PLATELET VOLUME 9.3 FL (7.4-10.4); MONOCYTES # (AUTO) 1.1 X 10^3 (0.0-1.0); MONOCYTES % (AUTO) 5 % (0-12); NEUTROPHILS # (AUTO) 19.4 X 10^3 (1.8-7.8); NEUTROPHILS % (AUTO) 87 % (42-75); PLATELET COUNT 404 10^3/uL (130-400); RED BLOOD COUNT 3.83 10^6/uL (4.35-5.85); RED CELL DISTRIBUTION WIDTH 14.3 % (10.0-14.5); WHITE BLOOD COUNT 22.4 10^3/uL (4.3-11.0)
[2017-07-17 06:58] LABS: BUN/CREATININE RATIO 14; CALCIUM 9.5 MG/DL (8.5-10.1); CARBON DIOXIDE 26 MMOL/L (21-32); CHLORIDE 102 MMOL/L (98-107); CREATININE SERUM 0.69 MG/DL (0.60-1.30); GFR ESTIMATED > 60; GLUCOSE 167 MG/DL (70-105); POTASSIUM 4.2 MMOL/L (3.6-5.0); SODIUM 139 MMOL/L (135-145)
[2017-07-17 08:00] VITALS: BP 119/58
[2017-07-17] MEDS ORDERED: PRED10TA22 PO (08:41)
--- NOTE | 2017-07-17 08:49 | Discharge Summary ---
Diagnosis/Chief Complaint Date of Admission Jul 15, 2017 at 20:52 Date of Discharge July 17, 2017 Admission Diagnosis Admission Diagnosis KINDLY SEE BELOW Discharge Diagnosis INFLUENZA B LEFT UPPER LOBE PNEUMONIA COPD W EXACERBATION TOBACCO ABUSE MORBID OBESITY ADMISSION: We will treat patient aggressively with steroids, IV antibiotics and supplemental oxgyen. We have started Tamiflu due to the secondary pneumonia and to reduce risk for further complications. DISCHARGE: Patient improved considerably fast while in hospital. She no longer had an oxygen requirement on day of discharge. She will finish the azithromycin, cefpodoxime, and tamiflu at home as well as a prolonged steroid taper as an outpatient. We also discussed the risks that tobacco and obesity pose to her health. She will follow up with her PCP next week and call us sooner if she has any questions. Chief Complaint/HPI Chief Complaint/HPI Pleasant 41yo woman presented to hospital with complaints of shortness of breath. Patient states her fiance was sick a week ago on Friday, they on Friday, and she has worsened steadily since that time. She believes her fiance has given her the flu. She has been very weak since becoming sick. She has a deep cough which is sometimes productive of sputum. Tactile fevers at home. She has a history of COPD and tobacco use. Discharge Summary-Simple/Stand Consultations Discharge Physical Examination Allergies: Coded Allergies: methocarbamol (Unverified Allergy, Unknown, 10/13/15) fentanyl (Verified Adverse Reaction, Unknown, 11/19/13) Vitals & I&Os Vital Sign - Last 12Hours Date Time Temp Pulse Resp B/P (MAP) Pulse Ox O2 Delivery O2 Flow Rate FiO2 07/17/17 08:00 97.5 80 22 119/58 (78) 94 Nasal Cannula 2.00 Intake and Output 07/17/17 00:00 Intake Total 1430 ml Output Total 1350 ml Balance 80 ml General Appearance: Alert, Oriented X3, Cooperative, No Acute Distress Respiratory: Clear to Auscultation, Normal Air Movement Cardiovascular: Regular Rate, Normal S1, Normal S2, No Murmurs, Gallops, Rubs Abdominal: Normal Bowel Sounds, Soft, No Tenderness, No Hepatosplenomegaly, No Masses Extremities: No Clubbing, No Cyanosis, No Edema Neuro: Normal Gait, Normal Speech, Strength at 5/5 X4 Ext, Normal Tone, Sensation Intact, Cranial Nerves 3-12 NL Psych/Mental Status: Mental Status NL, Mood NL Hospital Course See final discharge diagnosis. Labs Laboratory Tests Test 07/15/17 18:40 07/15/17 18:46 07/15/17 21:00 07/16/17 05:05 Range/Units Lactic Acid Level 3.78 *H 2.22 *H 0.50-2.00 MMOL/L White Blood Count 22.3 H 23.2 H 4.3-11.0 10^3/uL Red Blood Count 4.03 L 3.81 L 4.35-5.85 10^6/uL Hemoglobin 12.7 12.0 11.5-16.0 G/DL Hematocrit 37 36 35-52 % Mean Corpuscular Volume 92 94 80-99 FL Mean Corpuscular Hemoglobin 32 32 25-34 PG Mean Corpuscular Hemoglobin Concent 34 34 32-36 G/DL Red Cell Distribution Width 13.9 14.1 10.0-14.5 % Platelet Count 371 333 130-400 10^3/uL Mean Platelet Volume 9.4 9.5 7.4-10.4 FL Neutrophils (%) (Auto) 89 H 91 H 42-75 % Lymphocytes (%) (Auto) 7 L 7 L 12-44 % Monocytes (%) (Auto) 4 3 0-12 % Eosinophils (%) (Auto) 0 0 0-10 % Basophils (%) (Auto) 0 0 0-10 % Neutrophils # (Auto) 19.8 H 21.1 H 1.8-7.8 X 10^3 Lymphocytes # (Auto) 1.5 1.5 1.0-4.0 X 10^3 Monocytes # (Auto) 0.9 0.6 0.0-1.0 X 10^3 Eosinophils # (Auto) 0.0 0.0 0.0-0.3 10^3/uL Basophils # (Auto) 0.0 0.0 0.0-0.1 10^3/uL Neutrophils % (Manual) 76 % Lymphocytes % (Manual) 11 % Monocytes % (Manual) 3 % Eosinophils % (Manual) 0 % Basophils % (Manual) 0 % Band Neutrophils 10 % Blood Morphology Comment NORMAL Sodium Level 140 140 135-145 MMOL/L Potassium Level 4.3 4.3 3.6-5.0 MMOL/L Chloride Level 105 106 98-107 MMOL/L Carbon Dioxide Level 20 L 25 21-32 MMOL/L Anion Gap 15 H 9 5-14 MMOL/L Blood Urea Nitrogen 6 L 8 7-18 MG/DL Creatinine 0.69 0.71 0.60-1.30 MG/DL Estimat Glomerular Filtration Rate > 60 > 60 BUN/Creatinine Ratio 9 11 Glucose Level 131 H 178 H 70-105 MG/DL Calcium Level 9.6 9.6 8.5-10.1 MG/DL Magnesium Level 1.9 1.8-2.4 MG/DL Total Bilirubin 0.4 0.3 0.1-1.0 MG/DL Aspartate Amino Transf (AST/SGOT) 15 13 5-34 U/L Alanine Aminotransferase (ALT/SGPT) 28 27 0-55 U/L Alkaline Phosphatase 60 57 40-136 U/L B-Type Natriuretic Peptide 165.5 H <100.0 PG/ML Total Protein 7.5 7.1 6.4-8.2 GM/DL Albumin 4.3 4.1 3.2-4.5 GM/DL Serum Test, Qualitative NEGATIVE NEGATIVE Test 07/16/17 05:54 07/16/17 11:08 07/16/17 16:28 07/16/17 20:31 Range/Units Glucometer 209 H 255 H 159 H 248 H 70-110 MG/DL Test 07/17/17 05:35 07/17/17 06:30 07/17/17 12:06 Range/Units Glucometer 167 H 189 H 70-110 MG/DL White Blood Count 22.4 H 4.3-11.0 10^3/uL Red Blood Count 3.83 L 4.35-5.85 10^6/uL Hemoglobin 12.2 11.5-16.0 G/DL Hematocrit 36 35-52 % Mean Corpuscular Volume 94 80-99 FL Mean Corpuscular Hemoglobin 32 25-34 PG Mean Corpuscular Hemoglobin Concent 34 32-36 G/DL Red Cell Distribution Width 14.3 10.0-14.5 % Platelet Count 404 H 130-400 10^3/uL Mean Platelet Volume 9.3 7.4-10.4 FL Neutrophils (%) (Auto) 87 H 42-75 % Lymphocytes (%) (Auto) 8 L 12-44 % Monocytes (%) (Auto) 5 0-12 % Eosinophils (%) (Auto) 0 0-10 % Basophils (%) (Auto) 0 0-10 % Neutrophils # (Auto) 19.4 H 1.8-7.8 X 10^3 Lymphocytes # (Auto) 1.9 1.0-4.0 X 10^3 Monocytes # (Auto) 1.1 H 0.0-1.0 X 10^3 Eosinophils # (Auto) 0.0 0.0-0.3 10^3/uL Basophils # (Auto) 0.0 0.0-0.1 10^3/uL Sodium Level 139 135-145 MMOL/L Potassium Level 4.2 3.6-5.0 MMOL/L Chloride Level 102 98-107 MMOL/L Carbon Dioxide Level 26 21-32 MMOL/L Anion Gap 11 5-14 MMOL/L Blood Urea Nitrogen 10 7-18 MG/DL Creatinine 0.69 0.60-1.30 MG/DL Estimat Glomerular Filtration Rate > 60 BUN/Creatinine Ratio 14 Glucose Level 167 H 70-105 MG/DL Calcium Level 9.5 8.5-10.1 MG/DL Discharge Instructions to patient/family Please see electronic discharge instructions given to patient. Discharge Medications Reviewed and agree with Discharge Medication list on patient's Discharge Instruction sheet Clinical Quality Measures DVT/VTE Risk/Contraindication: Risk Factor Score Per Nursin RFS Level Per Nursing on Admit: 3=High Copy Copies To 1: NANDO WALSH APRN, MD Jul 17, 2017 8:49 am
--- NOTE | 2017-07-17 08:57 | Discharge Instructions ---
Discharge [facility] Discharge Medications New, Converted or Re-Newed RX: Transmitted to Pharmacy New Medications: Prednisone (Prednisone) 10 Mg Tab.ds.pk 10 MG PO DAILY, #42 PKG 0 Refills Take 6 tabs(60mg)daily,decrease by 1 tab(10mg)every other day. Continued Medications: Albuterol/Ipratropium (Combivent Respimat Inhal Mars) 4 Gm Aero 1 PUFF IH QID PRN for SHORTNESS OF BREATH, INH Alprazolam (Alprazolam) 0.5 Mg Tablet 0.5 MG PO BID PRN for ANXIETY, TAB Ascorbate Calcium (Vitamin C) 500 Mg Tablet 500 MG PO DAILY, TAB Azithromycin (Zithromax) 500 Mg Tablet 500 MG PO DAILY, #5 TAB FOR INFECTION Benzonatate (Tessalon Perle) 100 Mg Capsule 1-2 TAB PO TID for Cough, #30 CAP Brexpiprazole (Rexulti) 2 Mg Tablet 2 MG PO HS, TAB Budesonide (Pulmicort Flexhaler) 90 Mcg Aer.pow.ba 90 MCG IH BID, #1 GM Buspirone HCl (Buspirone HCl) 5 Mg Tablet 5 MG PO BID, TAB Cefdinir (Cefdinir) 300 Mg Capsule 300 MG PO BID for FOR INFECTION, #20 CAP Furosemide (Lasix) 20 Mg Tablet 20 MG PO DAILY PRN for SWELLING, TAB Levothyroxine Sodium (Levothyroxine Sodium) 150 Mcg Tablet 150 MCG PO DAILY, TAB Lisinopril (Lisinopril) 2.5 Mg Tablet 2.5 MG PO DAILY, TAB Lovastatin (Lovastatin) 20 Mg Tablet 20 MG PO DAILY, TAB Metformin HCl (Metformin HCl ER) 500 Mg Tab.er.24h 500 MG PO BID WITH MEALS, TAB Nabumetone (Nabumetone) 500 Mg Tablet 500 MG PO BID WITH MEALS, TAB [place] 3 Polyunsat Fatty Acids (Fish Oil 1,000 mg Capsule) 1,000 Mg Cap 1000 MG PO DAILY, CAP Potassium Chloride (Potassium Chloride) 10 Meq Tablet.er 10 MEQ PO DAILY PRN for WHEN TAKING FUROSEMIDE, TAB Tizanidine HCl (Tizanidine HCl) 4 Mg Tablet 8 TAB PO TID, TAB TAKES 2 (4MG) TABLETS Trazodone HCl (Trazodone HCl) 150 Mg Tablet 150-300 MG PO HS, TAB Vortioxetine Hydrobromide (Trintellix) 20 Mg Tablet 20 MG PO HS, TAB Discontinued Medications: Methylprednisolone (Medrol) 4 Mg Tab.ds.pk 4 MG PO UD, #1 PKG Patient Instructions Goal/Follow Up Appt: RICARDO ROGERS APRN JULY 23 AT 2PM Patient Instructions: PLEASE TAKE THE CEFDINIR AND AZITHROMYCIN PRESCRIBED. DO NOT TAKE THE MEDROL DOSE PACK; YOU SHOULD TAKE THE PREDNISONE TAPER THAT I HAVE PRESCRIBED TODAY. YOU SHOULD USE THE DUONEBS (INSTEAD OF THE INHALER) WHILE YOU ARE ILL. YOU SHOULD DO THEM 4 TIMES PER DAY AND IF YOU WAKE UP COUGHING. PLEASE FINISH THE BOX OF TAMIFLU (OSELTAMIVIR). Return to The Hospital For: INCREASING SHORTNESS OF BREATH, FEVER Activity & Diet Discharge Diet: No Restrictions Activity as Tolerated: Yes Orders-Post D/C & Referrals Pneu Vac Indicated: Yes Copy Copies To 1: NANDO WALSH APRN, MD Jul 17, 2017 8:46 am
[2017-07-17] MEDS ORDERED: NEBU1KIT3 MC ×2 (09:02→12:34)
[2017-07-17] MEDS ORDERED: IPRA3AMP IH (09:02)
[2017-07-17] MEDS ORDERED: RELABEL FOR HOME USE MC SCH (09:15)
[2017-07-17] MEDS: busPIRone 5 MG (BUSPAR) TAB PO SCH (10:15)
[2017-07-17] MEDS: OSELTAMIVIR 75 MG (TAMIFLU) BOX OF 10 PO SCH (10:15)
[2017-07-17] MEDS: AZITHROMYCIN 250 MG TAB (ZITHROMAX) PO SCH (10:15)
[2017-07-17] MEDS: PATCH REMOVAL TP SCH (10:15)
[2017-07-17] MEDS: NICOTINE 21 MG (NICODERM) PATCH TD SCH (10:15)
[2017-07-17] MEDS ORDERED: OSELTAMIVIR 75 MG (TAMIFLU) BOX OF 10 PO SCH (10:30)
[2017-07-17 12:00] VITALS: BP 132/62
== END 2017-07-17 13:40 | disposition home or self-care (01) | DRG 194 ==
LOC: EDUNIT# 18:13 → ER 18:14 → 4TH 20:52
PROVIDERS: ADMIT Pediatrics; ATTEND Pediatrics
DX: J10.00 Influenza due to other identified influenza virus with unspecified type of pneumonia (principal); J18.9 Pneumonia, unspecified organism; J44.0 Chronic obstructive pulmonary disease with (acute) lower respiratory infection; J44.1 Chronic obstructive pulmonary disease with (acute) exacerbation; F17.210 Nicotine dependence, cigarettes, uncomplicated; E66.01 Morbid (severe) obesity due to excess calories; K21.9 Gastro-esophageal reflux disease without esophagitis; E03.9 Hypothyroidism, unspecified; E11.9 Type 2 diabetes mellitus without complications; E78.00 Pure hypercholesterolemia, unspecified; F41.9 Anxiety disorder, unspecified; F32.9 Major depressive disorder, single episode, unspecified
CPT/HCPCS: 36415; 71046; 71260; 80048; 80053; 82962; 83605; 83735; 83880; 84145; 84703; 85007; 85025; 85027; 87040; 87804; 93041; 94640; 94664; 94760; 96365; 96375

== ENCOUNTER 2017-07-31 22:11 | Emergency (ER) | payer MEDICAID ==
[~2017-07-31] VITALS: Ht 175.3 cm; Wt 121.6 kg
[~2017-07-31 22:11] MED LIST changes: +ALPR0.5T7 PO; +ASCO-262 PO; +BUSP5TAB59 PO; +IPRA3AMP IH; +LOVA20TA2 PO; +NEBU1KIT3 MC; +OMG1KC PO; +PRED10TA22 PO; +TRAZ150T72 PO
--- OUTSIDE RECORDS SUMMARY | 2017-07-31 22:16 | XMS REPORT | Clinical Summary ---
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 If you do not see the information that you expected, contact Release of Information in the Health Information Management department at [phone] for further assistance in locating additional records.[facility] Allergies Not on File Current Medications Not on file Active Problems Not on file Social History Tobacco Use Types Packs/Day Years Used Date Never Assessed Sex Assigned at Date Recorded Not on file Last Filed Vital Signs Not on file Plan of Treatment Health Maintenance Due Date Last Done Comments PHYSICAL (COMPREHENSIVE) 12/09/1982 EXAM PERTUSSIS VACCINE 12/09/1986 HIV SCREENING 12/09/1990 TETANUS VACCINE 12/09/1992 CERVICAL CANCER SCREENING 12/09/2005 BREAST CANCER SCREENING 2015 INFLUENZA VACCINE 02/09/2018 Results Not on filefrom Last 3 Months
[2017-07-31 23:37] LABS: BILIRUBIN,URINE NEGATIVE (NEGATIVE); CLARITY,URINE CLEAR; COLOR,URINE YELLOW; GLUCOSE, URINE (UA) NEGATIVE (NEGATIVE); KETONES,URINE NEGATIVE (NEGATIVE); LEUKOCYTE ESTERASE ,URINE 1+ (NEGATIVE); NITRITE,URINE NEGATIVE (NEGATIVE); PH,URINE 6 (5-9); PROTEIN,URINE NEGATIVE (NEGATIVE); UROBILINOGEN,URINE 1 MG/DL (NORMAL)
[2017-07-31 23:57] LABS: BACTERIA,URINE MODERATE /HPF; WBC,URINE 0-2 /HPF
[2017-08-01] MEDS ORDERED: CEPHALEXIN 250 MG (KEFLEX) CAP PO ONE (02:45)
[2017-08-01] MEDS ORDERED: HYDROcodone/APAP 10 MG/325 MG (LORTAB) TAB PO ONE (02:45)
--- NOTE | 2017-08-01 02:50 | ED GU-Female ---
General Chief Complaint: Abdominal/GI Problems Stated Complaint: FEVER;COUGH Nursing Triage Note: pt c/o vomiting starting today. runny nose et cough since being treated for pneumonia 2 weeks ago. she c/o increased low back pain et abd cramping x 2 days, concerned for UTI. Nursing Sepsis Screen: Possible Sepsis Risk Source: patient, family Exam Limitations: no limitations History of Present Illness Date Seen by Provider: Jul 31, 2017 Time Seen by Provider: 23:30 Initial Comments Patient presents with a chief complaint of burning urination times one day and bilateral back pain. She has no history of kidney stones and she has not seen blood in her urine. Her pain is dissimilar from her typical back pain in her left is a little bit worse than the right. She's not had any fevers or chills that she did have some nausea and almost vomited times one. She is not having any problems with her bowels. She has taken ibuprofen at home with minimal effect. No fevers or chills. Allergies and Home Medications Allergies Coded Allergies: methocarbamol (Unverified Allergy, Unknown, 10/13/15) fentanyl (Verified Adverse Reaction, Unknown, 11/19/13) Home Medications Albuterol/Ipratropium 4 Gm Aero, 1 PUFF IH QID PRN for SHORTNESS OF BREATH, ( Reported) Alprazolam 0.5 Mg Tablet, 0.5 MG PO BID PRN for ANXIETY, (Reported) Ascorbate Calcium 500 Mg Tablet, 500 MG PO DAILY, (Reported) Azithromycin 500 Mg Tablet, 500 MG PO DAILY FOR INFECTION Prescribed by: VIDAL GALEANA on 07/14/172352 Benzonatate 100 Mg Capsule, 1-2 TAB PO TID Prescribed by: VIDAL GALEANA on 07/14/172352 Brexpiprazole 2 Mg Tablet, 2 MG PO HS, (Reported) Budesonide 90 Mcg Aer.pow.ba, 90 MCG IH BID Prescribed by: VIDAL GALEANA on 07/14/172352 Buspirone HCl 5 Mg Tablet, 5 MG PO BID, (Reported) Cefdinir 300 Mg Capsule, 300 MG PO BID Prescribed by: VIDAL GALEANA on 07/14/172352 Furosemide 20 Mg Tablet, 20 MG PO DAILY PRN for SWELLING, (Reported) Ipratropium/Albuterol Sulfate 3 Ml Ampul.neb, 3 ML IH Q4H PRN for SHORTNESS OF BREATH Prescribed by: NANDO MANCILLA on 07/17/17 0902 Levothyroxine Sodium 150 Mcg Tablet, 150 MCG PO DAILY, (Reported) Lisinopril 2.5 Mg Tablet, 2.5 MG PO DAILY, (Reported) Lovastatin 20 Mg Tablet, 20 MG PO DAILY, (Reported) Metformin HCl 500 Mg Tab.er.24h, 500 MG PO BID WITH MEALS, (Reported) Nabumetone 500 Mg Tablet, 500 MG PO BID WITH MEALS, (Reported) [place] 3 Polyunsat Fatty Acids 1,000 Mg Cap, 1,000 MG PO DAILY, (Reported) Potassium Chloride 10 Meq Tablet.er, 10 MEQ PO DAILY PRN for WHEN TAKING FUROSEMIDE, (Reported) Prednisone 10 Mg Tab.ds.pk, 10 MG PO DAILY Take 6 tabs(60mg)daily,decrease by 1 tab(10mg)every other day. Prescribed by: NANDO MANCILLA on 07/17/17 0841 Tizanidine HCl 4 Mg Tablet, 8 TAB PO TID, (Reported) TAKES 2 (4MG) TABLETS Trazodone HCl 150 Mg Tablet, 150-300 MG PO HS, (Reported) Vortioxetine Hydrobromide 20 Mg Tablet, 20 MG PO HS, (Reported) Patient Home Medication List Home Medication List Reviewed: Yes Constitutional: No chills, No diaphoresis EENTM: No ear discharge, No ear pain Respiratory: cough, phlegm, No short of breath, wheezing (occ) Cardiovascular: No chest pain, No palpitations Gastrointestinal: No abdominal pain, No constipation, No diarrhea, No nausea, No vomiting Genitourinary: burning, dysuria : No (hyst) Musculoskeletal: No back pain, No joint pain, No joint swelling Skin: No pruritus, No rash Psychiatric/Neurological: Denies Headache, Denies Numbness Past Fyunwji-Natiul-Ukxnad Hx Patient Social History Alcohol Use: Denies Use Recreational Drug Use: No Smoking Status: Current Everyday Smoker Type Used: Cigarettes 2nd Hand Smoke Exposure: Yes Recent Foreign Travel: No Contact w/Someone Who Travel: No Recent Infectious Disease Expo: No Recent Hopitalizations: No Immunizations Up To Date Tetanus Booster (TDap): Unknown Date of Influenza Vaccine: Feb 08, 2017 Seasonal Allergies Seasonal Allergies: Yes Surgeries History of Surgeries: Yes Surgeries: Gallbladder, Hysterectomy, Oophorectomy, Orthopedic, Tracheostomy Respiratory History of Respiratory Disorde: Yes (surgical bx for pneumonia/on ventilator WITH TRACH 1996) Respiratory Disorders: Asthma, Pneumonia, Chronic Bronchitis, COPD Currently Using CPAP: No Currently Using BIPAP: No Cardiovascular History of Cardiac Disorders: Yes Cardiac Disorders: High Cholesterol Neurological History of Neurological Disord: Yes (lumbar neural foraminal stenosis) Reproductive System Hx Reproductive Disorders: Yes 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 Genitourinary History of Genitourinary Disor: No Gastrointestinal History of Gastrointestinal Di: Yes Gastrointestinal Disorders: Gastroesophageal Reflux Musculoskeletal History of Musculoskeletal Dis: Yes (lumbar neuroforaminal stenosis;SPINAL CORD STIMULATOR 2016; RIGHT HIP PAIN ) Musculoskeletal Disorders: Degenerate Disk Disease, Chronic Back Pain, Fractures Endocrine History of Endocrine Disorders: Yes Endocrine Disorders: Hypothyroidsim, Diabetes, Non-Insulin dep HEENT History of HEENT Disorders: No Cancer History of Cancer: No Psychosocial History of Psychiatric Problem: Yes Behavioral Health Disorders: Anxiety, Depression Integumentary History of Skin or Integumenta: Yes (h/o mrsa infection -CANNOT REMEMBER WHERE LOCATED) Blood Transfusions History of Blood Disorders: No Family Medical History Significant Family History: No Pertinent Family Hx Family Medial History: Patient reports no known family medical history. Physical Exam Vital Signs Vital Signs - First Documented 07/31/17 23:15 Temp 99.1 Pulse 104 Resp 16 B/P (MAP) 121/76 (91) Pulse Ox 96 O2 Delivery Room Air Capillary Refill : Less Than 3 Seconds General Appearance: WD/WN, no apparent distress HEENT: PERRL/EOMI, pharynx normal Neck: non-tender, supple, normal inspection Cardiovascular: normal peripheral pulses, regular rate, rhythm Respiratory: chest non-tender, lungs clear, normal breath sounds, no respiratory distress, no accessory muscle use Gastrointestinal: normal bowel sounds, non tender, soft Back: normal inspection, no vertebral tenderness, CVA tenderness (R), CVA tenderness (L) Extremities: normal range of motion, non-tender, no pedal edema, no calf tenderness, normal capillary refill Neurologic/Psychiatric: alert, normal mood/affect, oriented x 3 Skin: normal color, warm/dry Progress/Results/Core Measures Suspected Sepsis Recent Fever Within 48 Hours: Yes Infection Criteria Present: Suspected New Infection New/Unexplained Altered Menta: No Sepsis Screen: Possible Sepsis Risk Sepsis Diagnosis: SIRS Temperature:99.1 Pulse: 104 Respiratory Rate: 16 Blood Pressure 121 /76 Mean: 91 Results/Orders Lab Results Laboratory Tests Test 07/31/17 23:20 Range/Units Urine Color YELLOW Urine Clarity CLEAR Urine pH 6 5-9 Urine Specific [place] 1.020 1.016-1.022 Urine Protein NEGATIVE NEGATIVE Urine Glucose (UA) NEGATIVE NEGATIVE Urine Ketones NEGATIVE NEGATIVE Urine Nitrite NEGATIVE NEGATIVE Urine Bilirubin NEGATIVE NEGATIVE Urine Urobilinogen 1 NORMAL MG/DL Urine Leukocyte Esterase 1+ H NEGATIVE Urine RBC (Auto) NEGATIVE NEGATIVE Urine RBC NONE /HPF Urine WBC 0-2 /HPF Urine Squamous Epithelial Cells 2-5 /HPF Urine Crystals NONE /LPF Urine Bacteria MODERATE H /HPF Urine Casts NONE /LPF Urine Mucus LARGE H /LPF Urine Culture Indicated YES My Orders Orders - RICHAR FRENCH Ua Culture If Indicated (07/31/17 23:32) Urine Culture (07/31/17 23:20) Hydrocodone/Apap 10/325 Tablet (Lortab 1 (08/01/17 02:45) Ct Abd/Pelvis Wo(Kidney Stone) (08/01/17 02:45) Cephalexin Capsule (Keflex Capsule) (08/01/17 02:45) Medications Given in ED Current Medications Medications Dose Ordered Sig/Bridgette Route Start Time Stop Time Status Last Admin Dose Admin Acetaminophen/ Hydrocodone Bitart 1 ea ONCE ONCE PO 08/01/17 02:45 08/01/17 02:46 DC 08/01/17 02:51 1 EA Cephalexin HCl 500 mg ONCE ONCE PO 08/01/17 02:45 08/01/17 02:47 DC 08/01/17 02:50 500 MG Vital Signs/I&O Vital Sign - Last 12Hours 07/31/17 23:15 Temp 99.1 Pulse 104 Resp 16 B/P (MAP) 121/76 (91) Pulse Ox 96 O2 Delivery Room Air Capillary Refill : Less Than 3 Seconds Blood Pressure Mean: 91 Progress Note #1: Time: 02:49 Progress Note Concern for kidney stone is normal white blood cells are that there is some bacteria. We'll go ahead and get a CT scan after discussing it with the patient and start her on some Keflex and pain medicine. Progress Note #2: Time: 04:22 Progress Note It's possible that the right lower basal infiltrate is a remnant of her ammonia that she had treated 2 weeks ago however we can give her Levaquin which would cover her urinary tract infection as well so we'll just do unit coverage and have her follow up next week with her primary care physician. She says she does have an increased amount of cough. No fevers or chills. Diagnostic Imaging Diagonstic Imaging: CT (without contrast) Plain Films/CT/US/NM/MRI: abdomen, pelvis Comments Right lower lung mild infiltrates. No hydronephrosis or ureteral calculus. Reviewed: Reviewed by Me Departure Impression Impression: Primary Impression: Urinary tract infection Qualified Codes: N30.00 - Acute cystitis without hematuria Additional Impression: Pneumonia Qualified Codes: J18.1 - Lobar pneumonia, unspecified organism Disposition: HOME, SELF-CARE Condition: Stable Departure-Patient Inst. Decision time for Depature: 04:24 Referrals: BON PORTER DO (PCP/Family) Primary Care Physician Patient Instructions: Acute Cystitis (DC) Add. Discharge Instructions: If you're having shortness of breath, wheezing, coughing fits take when he her breathing treatments. Use the Levaquin one capsule every day for 5 days. Plan to follow up with your primary care physician within a week. Return to the ER if you have worsening shortness of breath fevers or other worrisome symptoms. All discharge instructions reviewed with patient and/or family. Voiced understanding. Scripts Levofloxacin (Levaquin) 750 Mg Tablet 750 MG PO DAILY for 5 Days, #5 TAB 0 Refills Prov: RICHAR FRENCH 08/01/17 Work/School Note: Work Release Form Date Seen in the Emergency Department: Aug 01, 2017 Return to Work: Aug 02, 2017 Restrictions: No Restrictions Copy Copies To 1: BON PORTER TITUS J Aug 01, 2017 02:50
[2017-08-01] MEDS ORDERED: LEVO750T9 PO (04:27)
[2017-08-01 04:35] VITALS: BP 121/76
--- NOTE | 2017-08-01 07:03 | Diagnostic Imaging Report ---
PROCEDURE: CT urinary tract, rule out kidney stone. TECHNIQUE: Multiple contiguous axial images were obtained through the abdomen and pelvis without the use of intravenous contrast. INDICATION: Lower back pain. History of kidney stones. COMPARISON: 06/01/2014. FINDINGS: There is some chronic interstitial and fibrotic changes in the right lung base. There is some new minimal nodular infiltrate within the right lower lobe, however. The left lung base is clear. The liver appears unremarkable. The gallbladder is absent. There is no biliary dilatation. The pancreas, spleen and adrenal glands appear unremarkable. The kidneys, ureters and bladder appear unremarkable. No urinary tract stone or obstructive changes are seen. The appendix appears normal. The uterus appears absent. There is a 2.7 cm cystic lesion in the right adnexa. There is no evidence of diverticulitis other focal inflammatory process. There is no free air, free fluid or adenopathy. Abdominal aorta appears normal in caliber. No acute osseous abnormality is seen. IMPRESSION: 1. No evidence of an acute abnormality in the abdomen and pelvis. 2. Mild right lower lobe infiltrate. 3. 2 cm right adnexal cyst. Agree with [facility] interpretation. Dictated by: Dictated on workstation # [id number]
== END 2017-08-01 04:35 | disposition home or self-care (01) ==
LOC: EDUNIT# 22:11 → ER 22:12
DX: N39.0 Urinary tract infection, site not specified (principal); J18.9 Pneumonia, unspecified organism; J44.9 Chronic obstructive pulmonary disease, unspecified; E78.00 Pure hypercholesterolemia, unspecified; K21.9 Gastro-esophageal reflux disease without esophagitis; E03.9 Hypothyroidism, unspecified; E11.9 Type 2 diabetes mellitus without complications; F41.9 Anxiety disorder, unspecified; F32.9 Major depressive disorder, single episode, unspecified; F17.210 Nicotine dependence, cigarettes, uncomplicated; Z88.8 Allergy status to other drugs, medicaments and biological substances; Z87.01 Personal history of pneumonia (recurrent); Z86.14 Personal history of Methicillin resistant Staphylococcus aureus infection; Z99.11 Dependence on respirator [ventilator] status; Z88.6 Allergy status to analgesic agent; Z79.52 Long term (current) use of systemic steroids; Z90.710 Acquired absence of both cervix and uterus; Z93.0 Tracheostomy status; Z79.84 Long term (current) use of oral hypoglycemic drugs
CPT/HCPCS: 74176; 81000; 87077; 87088; 87186

== ENCOUNTER → 2017-08-04 | Outpatient (CLI) | payer MEDICAID ==
[~2017-08-04] MED LIST changes: +LEVO750T9 PO
== END ==
LOC: PREOP 05:38
PROVIDERS: ATTEND Orthopaedic Surgery Orthopaedic Surgery of the Spine
DX: Z01.818 Encounter for other preprocedural examination (principal); T85.112A Breakdown (mechanical) of implanted electronic neurostimulator of spinal cord electrode (lead), initial encounter; I10 Essential (primary) hypertension

== ENCOUNTER 2017-08-16 00:32 | Emergency (ER) | payer MEDICAID ==
[~2017-08-16] VITALS: Ht 175.3 cm; Wt 114.8 kg
--- OUTSIDE RECORDS SUMMARY | 2017-08-16 00:39 | XMS REPORT | Clinical Summary ---
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 If you do not see the information that you expected, contact Release of Information in the Health Information Management department at [phone] for further assistance in locating additional records.[facility] Allergies Not on File Current Medications [...]
[2017-08-16] MEDS ORDERED: NS IV 1000 ML 1,000 ML IV ONE (00:42)
[2017-08-16] MEDS ORDERED: ONDANSETRON 4 MG/2 ML (SDV) Z0FRAN IVP ONE (00:45)
[2017-08-16 00:52] LABS: BASOPHILS # (AUTO) 0.1 10^3/uL (0.0-0.1); BASOPHILS % (AUTO) 1 % (0-10); EOSINOPHILS # (AUTO) 0.3 10^3/uL (0.0-0.3); EOSINOPHILS % (AUTO) 4 % (0-10); HEMATOCRIT 35 % (35-52); HEMOGLOBIN 12.2 G/DL (11.5-16.0); LYMPHOCYTES # (AUTO) 3.6 X 10^3 (1.0-4.0); LYMPHOCYTES % (AUTO) 40 % (12-44); MEAN CORPUSCULAR HEMOGLOBIN 32 PG (25-34); MEAN CORPUSCULAR HGB CONC 35 G/DL (32-36); MEAN CORPUSCULAR VOLUME 92 FL (80-99); MEAN PLATELET VOLUME 9.5 FL (7.4-10.4); MONOCYTES # (AUTO) 0.7 X 10^3 (0.0-1.0); MONOCYTES % (AUTO) 8 % (0-12); NEUTROPHILS # (AUTO) 4.1 X 10^3 (1.8-7.8); NEUTROPHILS % (AUTO) 47 % (42-75); PLATELET COUNT 339 10^3/uL (130-400); RED BLOOD COUNT 3.82 10^6/uL (4.35-5.85); RED CELL DISTRIBUTION WIDTH 14.6 % (10.0-14.5); WHITE BLOOD COUNT 8.8 10^3/uL (4.3-11.0)
[2017-08-16 01:02] LABS: PROTHROMBIN TIME PATIENT 13.4 SEC (12.2-14.7)
--- NOTE | 2017-08-16 01:06 | ED General ---
General Chief Complaint: Dizziness/Syncope Stated Complaint: SYNCOPE Nursing Triage Note: syncopal episode Nursing Sepsis Screen: No Definite Risk Source of Information: Patient, EMS History of Present Illness Date Seen by Provider: Aug 16, 2017 Time Seen by Provider: 00:32 Initial Comments PT ARRIVES VIA EMS FROM HOME PT WAS LAYING IN BED, BUT WAS NOT ASLEEP, AND HAD A SYNCOPAL EPISODE VS QUESTIONABLE SEIZURE ACTIVITY WAS LAYING BESIDE HER, AND HE REPORTED TO EMS THAT SHE POSSIBLY WAS SHAKING A LITTLE, AND WOULD NOT RESPOND. ARRIVES SHORTLY AFTER PT ARRIVES, AND HE REPORTS THAT HE THOUGHT PT HAD GONE TO SLEEP, BECAUSE SHE WAS SNORING, BUT STATES IT WAS NOT LIKE NORMAL SNORING-- AND HE COULD NOT WAKE HER UP. EPISODE LASTED 3-5 MINUTES. HE WAS ABLE TO WAKE HER UP WITH A COLD RAG ON HER FACE. HE REPORTS SHE HAD SLIGHTLY SLURRED SPEECH SOON SHE WOKE UP BUT ONLY LASTED A FEW SECONDS. NO SIGNIFICANT POST ICTAL SYMPTOMS NO INCONTINENCE PT REMEMBERS EVERYTHING IMMEDIATELY BEFORE AND AFTER THE EPISODE FEELS SLIGHTLY NAUSEATED NOW, AND AFTER ARRIVAL TO ER STATES SHE THINKS SHE MIGHT HAVE A SLIGHT HEADACHE STATES OTHER THAN FEELING "VERY AGITATED AND IRRITABLE" ALL DAY, SHE HAS OTHERWISE FELT FINE DENIES ANY MISSED OR EXTRA DOSES OF MEDICATIONS DENIES ANY UNUSUAL STRESSORS, FIGHTING, ETC. PT WAS ADMITTED 07/15-07/17 FOR COPD/PNEUMONIA PT SEEN IN ER 07/31 FOR UTI HAS FINISHED ALL ANTIBIOTICS AND ALL THOSE SYMPTOMS HAVE RESOLVED PT WITH MULTIPLE VISITS--VARIOUS COMPLAINTS, BUT MANY FOR RESPIRATORY ILLNESSES. PCP: DOUG ROGERS Allergies and Home Medications Allergies Coded Allergies: methocarbamol (Unverified Allergy, Unknown, 10/13/15) fentanyl (Verified Adverse Reaction, Unknown, 11/19/13) Home Medications Albuterol/Ipratropium 4 Gm Aero, 1 PUFF IH QID PRN for SHORTNESS OF BREATH, ( Reported) Alprazolam 0.5 Mg Tablet, 0.5 MG PO BID PRN for ANXIETY, (Reported) Ascorbate Calcium 500 Mg Tablet, 500 MG PO DAILY, (Reported) Azithromycin 500 Mg Tablet, 500 MG PO DAILY FOR INFECTION Prescribed by: VIDAL GALEANA on 07/14/172352 Benzonatate 100 Mg Capsule, 1-2 TAB PO TID Prescribed by: VIDAL GALEANA on 07/14/172352 Brexpiprazole 2 Mg Tablet, 2 MG PO HS, (Reported) Budesonide 90 Mcg Aer.pow.ba, 90 MCG IH BID Prescribed by: VIDAL GALEANA on 07/14/172352 Buspirone HCl 5 Mg Tablet, 5 MG PO BID, (Reported) Cefdinir 300 Mg Capsule, 300 MG PO BID Prescribed by: VIDAL GALEANA on 07/14/172352 Furosemide 20 Mg Tablet, 20 MG PO DAILY PRN for SWELLING, (Reported) Ipratropium/Albuterol Sulfate 3 Ml Ampul.neb, 3 ML IH Q4H PRN for SHORTNESS OF BREATH Prescribed by: NANDO MANCILLA on 07/17/17 09 Levofloxacin 750 Mg Tablet, 750 MG PO DAILY Prescribed by: RICHAR FRENCH on 08/01/17426 Levothyroxine Sodium 150 Mcg Tablet, 150 MCG PO DAILY, (Reported) Lisinopril 2.5 Mg Tablet, 2.5 MG PO DAILY, (Reported) Lovastatin 20 Mg Tablet, 20 MG PO DAILY, (Reported) Metformin HCl 500 Mg Tab.er.24h, 500 MG PO BID WITH MEALS, (Reported) Nabumetone 500 Mg Tablet, 500 MG PO BID WITH MEALS, (Reported) Nitrofurantoin Monohyd/M-Cryst 100 Mg Capsule, 100 MG PO BID Prescribed by: VIDAL GALEANA on 08/16/17234 [place] 3 Polyunsat Fatty Acids 1,000 Mg Cap, 1,000 MG PO DAILY, (Reported) Potassium Chloride 10 Meq Tablet.er, 10 MEQ PO DAILY PRN for WHEN TAKING FUROSEMIDE, (Reported) Prednisone 10 Mg Tab.ds.pk, 10 MG PO DAILY Take 6 tabs(60mg)daily,decrease by 1 tab(10mg)every other day. Prescribed by: NANDO MANCILLA on 07/17/17 0841 Tizanidine HCl 4 Mg Tablet, 8 TAB PO TID, (Reported) TAKES 2 (4MG) TABLETS Trazodone HCl 150 Mg Tablet, 150-300 MG PO HS, (Reported) Vortioxetine Hydrobromide 20 Mg Tablet, 20 MG PO HS, (Reported) Patient Home Medication List Home Medication List Reviewed: Yes Review of Systems Constitutional: no symptoms reported EENTM: no symptoms reported Respiratory: no symptoms reported Cardiovascular: No chest pain, No edema, No palpitations, syncope, No vascular heart diseas Gastrointestinal: see HPI, No abdominal pain, nausea Genitourinary: no symptoms reported Musculoskeletal: no symptoms reported Skin: no symptoms reported Psychiatric/Neurological: See HPI Hematologic/Lymphatic: No Symptoms Reported Immunological/Allergic: no symptoms reported Past Cumxaje-Ygoroe-Qklofg Hx Patient Social History Alcohol Use: Occasionally Uses Recreational Drug Use: No Smoking Status: Current Everyday Smoker (1 PPD) Type Used: Cigarettes (1 PPD) 2nd Hand Smoke Exposure: Yes Recent Foreign Travel: No Contact w/Someone Who Travel: No Recent Infectious Disease Expo: No Recent Hopitalizations: No Immunizations Up To Date Tetanus Booster (TDap): Unknown Date of Influenza Vaccine: Feb 08, 2017 Seasonal Allergies Seasonal Allergies: Yes Past Medical History Surgeries: Yes (RIGHT ARM FX/ORIF-RODS/SCREWS; BILATERAL CHEST TUBES AND TRACHEOSTOMY FOR PNEUMONIA; RIGHT LUNG BIOPSY; DENTAL SURGERY; SPINAL CORD STIMULATOR 2015; HYST/LSO) Gallbladder, Hysterectomy, Oophorectomy, Orthopedic, Tracheostomy Respiratory: Yes (surgical bx for pneumonia/on ventilator WITH TRACH 1996) Asthma, Pneumonia, Chronic Bronchitis, COPD Currently Using CPAP: No Currently Using BIPAP: No Cardiac: Yes High Cholesterol, Hypertension Neurological: Yes (lumbar neural foraminal stenosis) Headaches /Migraines : No Reproductive Disorders: Yes WELDER PLASTIC History: Hysterectomy Genitourinary: No Gastrointestinal: Yes Gastroesophageal Reflux Musculoskeletal: Yes (lumbar neuroforaminal stenosis;SPINAL CORD STIMULATOR 2015; RIGHT HIP PAIN ) Degenerate Disk Disease, Chronic Back Pain, Fractures Endocrine: Yes Hypothyroidsim, Diabetes, Non-Insulin dep HEENT: No Cancer: No Psychosocial: Yes Anxiety, Depression Integumentary: Yes (MRSA) Blood Disorders: No Family Medical History Patient reports no known family medical history. No Pertinent Family Hx Physical Exam Vital Signs Vital Signs - First Documented 08/16/17 00:32 Temp 97.8 Pulse 59 Resp 21 B/P (MAP) 101/60 (74) Pulse Ox 93 O2 Delivery Room Air Capillary Refill : Less Than 3 Seconds General Appearance: No Apparent Distress, WD/WN, Other (REEKS OF CIGARETTES; PT SMILING AND TALKATIVE. ) HEENT: PERRL/EOMI, Normal ENT Inspection Neck: Full Range of Motion, Normal Inspection, Non Tender, Supple, No Carotid Bruit Respiratory: Normal Breath Sounds, No Accessory Muscle Use, No Respiratory Distress Cardiovascular: Regular Rate, Rhythm, No Edema, No JVD, No Murmur, Normal Peripheral Pulses Gastrointestinal: Normal Bowel Sounds, No Organomegaly, No Pulsatile Mass, Non Tender, Soft Back: Normal Inspection Extremity: Normal Capillary Refill, Normal Inspection, No Pedal Edema Neurologic/Psychiatric: Alert, Oriented x3, No Motor/Sensory Deficits, Normal Mood/Affect, loading inspector II-XII Norm as Tested, No Abnormal Cerebellar Tests Skin: Normal Color, Warm/Dry Progress/Results/Core Measures Suspected Sepsis Recent Fever Within 48 Hours: No Infection Criteria Present: None New/Unexplained Altered Menta: No Sepsis Screen: No Definite Risk Sepsis Diagnosis: SIRS Temperature:97.8 Pulse: 59 Respiratory Rate: 21 Laboratory Tests 08/16/17 00:40: White Blood Count 8.8 Blood Pressure 101 /60 Mean: 74 Laboratory Tests 08/16/17 00:40: Creatinine 0.70, INR Comment 1.0, Platelet Count 339, Total Bilirubin 0.4 Results/Orders Lab Results Laboratory Tests Test 08/16/17 00:40 08/16/17 02:05 Range/Units White Blood Count 8.8 4.3-11.0 10^3/uL Red Blood Count 3.82 L 4.35-5.85 10^6/uL Hemoglobin 12.2 11.5-16.0 G/DL Hematocrit 35 35-52 % Mean Corpuscular Volume 92 80-99 FL Mean Corpuscular Hemoglobin 32 25-34 PG Mean Corpuscular Hemoglobin Concent 35 32-36 G/DL Red Cell Distribution Width 14.6 H 10.0-14.5 % Platelet Count 339 130-400 10^3/uL Mean Platelet Volume 9.5 7.4-10.4 FL Neutrophils (%) (Auto) 47 42-75 % Lymphocytes (%) (Auto) 40 12-44 % Monocytes (%) (Auto) 8 0-12 % Eosinophils (%) (Auto) 4 0-10 % Basophils (%) (Auto) 1 0-10 % Neutrophils # (Auto) 4.1 1.8-7.8 X 10^3 Lymphocytes # (Auto) 3.6 1.0-4.0 X 10^3 Monocytes # (Auto) 0.7 0.0-1.0 X 10^3 Eosinophils # (Auto) 0.3 0.0-0.3 10^3/uL Basophils # (Auto) 0.1 0.0-0.1 10^3/uL Prothrombin Time 13.4 12.2-14.7 SEC INR Comment 1.0 0.8-1.4 Activated Partial Thromboplast Time 27 24-35 SEC Sodium Level 140 135-145 MMOL/L Potassium Level 3.0 L 3.6-5.0 MMOL/L Chloride Level 105 98-107 MMOL/L Carbon Dioxide Level 22 21-32 MMOL/L Anion Gap 13 5-14 MMOL/L Blood Urea Nitrogen 9 7-18 MG/DL Creatinine 0.70 0.60-1.30 MG/DL Estimat Glomerular Filtration Rate > 60 BUN/Creatinine Ratio 13 Glucose Level 123 H 70-105 MG/DL Calcium Level 9.1 8.5-10.1 MG/DL Magnesium Level 1.9 1.8-2.4 MG/DL Total Bilirubin 0.4 0.1-1.0 MG/DL Aspartate Amino Transf (AST/SGOT) 42 H 5-34 U/L Alanine Aminotransferase (ALT/SGPT) 40 0-55 U/L Alkaline Phosphatase 61 40-136 U/L Total Creatine Kinase 52 29-168 U/L Creatine Kinase MB 0.2 <6.6 NG/ML Troponin I < 0.30 <0.30 NG/ML B-Type Natriuretic Peptide 86.6 <100.0 PG/ML Total Protein 6.3 L 6.4-8.2 GM/DL Albumin 3.9 3.2-4.5 GM/DL TSH [place] Testing 1.44 0.35-4.94 UIU/ML Acetaminophen Level < 10 L 10-30 UG/ML Serum Alcohol < 10 <10 MG/DL Urine Color YELLOW Urine Clarity CLEAR Urine pH 5 5-9 Urine Specific [place] 1.025 H 1.016-1.022 Urine Protein 4+ NEGATIVE Urine Glucose (UA) NEGATIVE NEGATIVE Urine Ketones 1+ H NEGATIVE Urine Nitrite NEGATIVE NEGATIVE Urine Bilirubin NEGATIVE NEGATIVE Urine Urobilinogen 1 NORMAL MG/DL Urine Leukocyte Esterase 1+ H NEGATIVE Urine RBC (Auto) NEGATIVE NEGATIVE Urine RBC 0-2 /HPF Urine WBC 5-10 H /HPF Urine Squamous Epithelial Cells 5-10 /HPF Urine Crystals PRESENT H /LPF Urine Calcium Oxalate Crystals FEW H /LPF Urine Amorphous Sediment FEW JIN URATES H /LPF Urine Bacteria MODERATE H /HPF Urine Casts PRESENT /LPF Urine Hyaline Casts 25-50 H /LPF Urine Granular Casts 10-25 H /LPF Urine Mucus NEGATIVE /LPF Urine Yeast FEW H /HPF Urine Culture Indicated YES Urine Opiates Screen NEGATIVE NEGATIVE Urine Oxycodone Screen NEGATIVE NEGATIVE Urine Methadone Screen NEGATIVE NEGATIVE Urine Propoxyphene Screen NEGATIVE NEGATIVE Urine Barbiturates Screen NEGATIVE NEGATIVE Ur Tricyclic Antidepressants Screen NEGATIVE NEGATIVE Urine Phencyclidine Screen NEGATIVE NEGATIVE Urine Amphetamines Screen NEGATIVE NEGATIVE Urine Methamphetamines Screen NEGATIVE NEGATIVE Urine Benzodiazepines Screen NEGATIVE NEGATIVE Urine Cocaine Screen NEGATIVE NEGATIVE Urine Cannabinoids Screen NEGATIVE NEGATIVE My Orders Orders - VIDAL GALEANA DO Saline Lock/Iv-Start (08/16/17 00:42) Ekg Tracing (08/16/17 00:42) O2 (08/16/17 00:42) Monitor-Rhythm Ecg Trace Only (08/16/17 00:42) Ct Head Wo-R/O Stroke (08/16/17 00:42) Acetaminophen (08/16/17 00:42) Alcohol (08/16/17 00:42) BNP (08/16/17 00:42) Cbc With Automated Diff (08/16/17 00:42) Comprehensive Metabolic Panel (08/16/17 00:42) Creatine Kinase (08/16/17 00:42) Creatine Kinase Mb (08/16/17 00:42) Drug Screen Stat (Urine) (08/16/17 00:42) Magnesium (08/16/17 00:42) Protime With Inr (08/16/17 00:42) Partial Thromboplastin Time (08/16/17 00:42) Thyroid Analyzer (08/16/17 00:42) Troponin I (08/16/17 00:42) Ua Culture If Indicated (08/16/17 00:42) Chest 1 View, Ap/Pa Only (08/16/17 00:42) Saline Lock/Iv-Start (08/16/17 00:42) Ns Iv 1000 Ml (Sodium Chloride 0.9%) (08/16/17 00:42) Ondansetron Injection (Zofran Injectio (08/16/17 00:45) Potassium Chloride (Tablet) (Klor Con Ta (08/16/17 02:00) Urine Culture (08/16/17 02:05) Rx-Nitrofurantoin [place] (Rx-Macrobid) (08/16/17 02:35) Potassium Chloride (Tablet) (Klor Con Ta (08/16/17 02:04) Rx-Nitrofurantoin [place] (Rx-Macrobid) (08/16/17 02:36) Medications Given in ED Current Medications Medications Dose Ordered Sig/Bridgette Route Start Time Stop Time Status Last Admin Dose Admin Ondansetron HCl 4 mg ONCE ONCE IVP 08/16/17 00:45 08/16/17 00:46 DC 08/16/17 01:03 4 MG Potassium Chloride 40 meq ONCE ONCE PO 08/16/17 02:00 08/16/17 02:40 DC 08/16/17 02:09 40 MEQ Sodium Chloride 1,000 ml @ 0 mls/hr Q0M ONCE IV 08/16/17 00:42 08/16/17 00:44 DC 08/16/17 01:03 0 MLS/HR Vital Signs/I&O 08/16/17 08/16/17 08/16/17 00:32 00:35 02:43 Temp 97.8 98.2 Pulse 59 68 Resp 21 20 B/P (MAP) 101/60 (74) 97/62 (74) Pulse Ox 93 93 97 O2 Delivery Room Air Room Air Room Air Capillary Refill : Less Than 3 Seconds Blood Pressure Mean: 74 Progress Note : Progress Note UNEVENTFUL ER STAY ECG Initial ECG Impression Date: Aug 16, 2017 Initial ECG Impression Time: 01:06 Initial ECG Rate: 58 Initial ECG Rhythm: Normal Sinus Initial ECG Impression: Nonspecific Changes Initial ECG Comparisson: Unchanged Diagnostic Imaging Comments CT HEAD--NO ACUTE PROCESS, MILD PARANASAL SINUS DISEASE, PER RADIOLOGIST VIA PHONE AT [phone], AND VIA FAX AT 0105 CXR--CHRONIC CHANGES RIGHT BASE, OTHERWISE NO ACUTE PROCESS, PENDING RADIOLOGIST REVIEW Reviewed: Reviewed by Me Departure Communication (Admissions) 0205--SPOKE WITH DR. PORTER, ADVISES THAT PT CAN BE FURTHER EVALUATED AN OUTPATIENT AND DOES NOT NEED TO BE ADMITTED AT THIS TIME Impression Primary Impression: Episode of syncope Additional Impressions: QUESTIONABLE SEIZURE Hypokalemia Urinary tract infection Disposition: 01 HOME, SELF-CARE Condition: Stable Departure-Patient Inst. Referrals: BON PORTER DO (PCP) Primary Care Physician RICARDO ROGERS (Family) Primary Care Physician Patient Instructions: Hypokalemia (DC), Syncope (Fainting) (DC), Urinary Tract Infection, Adult (DC) Add. Discharge Instructions: LOTS OF CLEAR LIQUIDS--NO COFFEE, POP OR TEA CONTINUE YOUR REGULAR MEDICATIONS PRESCRIBED NO DRIVING UNTIL CLEARED BY DR. RETURN TO ER IF SYMPTOMS WORSEN OR ANY INJURIES FOLLOW UP WITH [facility] IN 2-3 DAYS FOR FURTHER CARE All discharge instructions reviewed with patient and/or family. Voiced understanding. Scripts Nitrofurantoin Monohyd/M-Cryst (Macrobid 100 mg Capsule) 100 Mg Capsule 100 MG PO BID, #30 CAP Prov: VIDAL GALEANA DO 08/16/17 Work/School Note: Family Work Note Patient Received Medical Care In the Emergency Department On: Aug 16, 2017 Patient Restrictions: PT NEEDS CONSTANT SUPERVISION UNTIL RE-EVALUATED BY VIDAL MCGRATH DO Aug 16, 2017 01:06
[2017-08-16 01:13] LABS: ALANINE AMINOTRANSFERASE 40 U/L (0-55); ALBUMIN 3.9 GM/DL (3.2-4.5); ALKALINE PHOSPHATASE 61 U/L (40-136); BILIRUBIN,TOTAL 0.4 MG/DL (0.1-1.0); BUN/CREATININE RATIO 13; CALCIUM 9.1 MG/DL (8.5-10.1); CARBON DIOXIDE 22 MMOL/L (21-32); CHLORIDE 105 MMOL/L (98-107); CREATINE KINASE 52 U/L (29-168); GFR ESTIMATED > 60; GLUCOSE 123 MG/DL (70-105); MAGNESIUM 1.9 MG/DL (1.8-2.4); SODIUM 140 MMOL/L (135-145); TOTAL PROTEIN 6.3 GM/DL (6.4-8.2)
[2017-08-16 01:14] LABS: ACETAMINOPHEN < 10 UG/ML (10-30)
[2017-08-16 01:39] LABS: CREATINE KINASE MB 0.2 NG/ML (<6.6); TSH (THYROID ANALYZER) 1.44 UIU/ML (0.35-4.94)
[2017-08-16] MEDS ORDERED: KCL 10 MEQ TAB (MICRO K) PO ONE ×2 (02:00→02:04)
[2017-08-16 02:17] LABS: BILIRUBIN,URINE NEGATIVE (NEGATIVE); CLARITY,URINE CLEAR; COLOR,URINE YELLOW; GLUCOSE, URINE (UA) NEGATIVE (NEGATIVE); KETONES,URINE 1+ (NEGATIVE); LEUKOCYTE ESTERASE ,URINE 1+ (NEGATIVE); NITRITE,URINE NEGATIVE (NEGATIVE); PH,URINE 5 (5-9); PROTEIN,URINE 4+ (NEGATIVE); UROBILINOGEN,URINE 1 MG/DL (NORMAL)
[2017-08-16 02:29] LABS: AMORPHOUS SEDIMENT,UR FEW AMOR URATES /LPF; BACTERIA,URINE MODERATE /HPF; CALCIUM OXALATE CRYSTALS,UR FEW /LPF; RBC,URINE 0-2 /HPF
[2017-08-16 02:30] LABS: AMPHETAMINE SCREEN, URINE NEGATIVE (NEGATIVE); BARBITURATE SCREEN URINE NEGATIVE (NEGATIVE); BENZODIAZEPINES SCREEN URINE NEGATIVE (NEGATIVE); CANNABINOID SCREEN, URINE NEGATIVE (NEGATIVE); COCAINE SCREEN URINE NEGATIVE (NEGATIVE); HYALINE CASTS, URINE 25-50 /LPF; METHADONE STAT NEGATIVE (NEGATIVE); METHAMPHETAMINE SCREEN URINE S NEGATIVE (NEGATIVE); OPIATE SCREEN URINE NEGATIVE (NEGATIVE); OXYCODONE STAT NEGATIVE (NEGATIVE); PROPOXYPHENE STAT NEGATIVE (NEGATIVE); TRICYCLIC ANTIDEPRESSANTS SCRE NEGATIVE (NEGATIVE); YEAST,URINE FEW /HPF
[2017-08-16] MEDS ORDERED: RX-NITROFURANTOIN 100 MG (MACROBID) CAP PPK#2 PO STA (02:35)
[2017-08-16] MEDS ORDERED: NITR-65 PO (02:35)
[2017-08-16] MEDS ORDERED: RX-NITROFURANTOIN 100 MG (MACROBID) CAP PPK#2 PO ONE (02:36)
[2017-08-16 02:43] VITALS: BP 97/62
--- NOTE | 2017-08-16 06:47 | Diagnostic Imaging Report ---
Indication: Syncope. TECHNIQUE: Multiple noncontrast CT axial images were obtained from the base of the skull through the vertex. COMPARISON: None FINDINGS: There is no midline shift or mass effect. The ventricles and sulci are unremarkable. No evidence for acute intracranial hemorrhage, abnormal extra-axial fluid collections or cerebral edema is present. The basilar cisterns are unremarkable. The bony calvarium is intact. Scattered areas of mucosal thickening as well as air-fluid levels are present. IMPRESSION: Negative appearing noncontrast CT of the head. Sinusitis. A preliminary report was provided by [facility]. Dictated by: Dictated on workstation # [id number]
--- NOTE | 2017-08-16 07:05 | Diagnostic Imaging Report ---
INDICATION: Syncope. TECHNIQUE: Single view chest 1:25 AM. CORRELATION STUDY: 07/15/2017 FINDINGS: There is continued opacity of the right lung base. Likely generally stable given differences in the technique. Remaining lung cowart are clear. Heart size and mediastinum are stable. Thoracic stimulator lead present. IMPRESSION: 1. Continued density of the right lung base corresponding to scarring noted on prior imaging. No new infiltrate. Dictated by: Dictated on workstation # [id number]
== END 2017-08-16 02:39 | disposition home or self-care (01) ==
LOC: EDUNIT# 00:32 → ER 00:36
DX: R55 Syncope and collapse (principal); E87.6 Hypokalemia; N39.0 Urinary tract infection, site not specified; F41.9 Anxiety disorder, unspecified; F32.9 Major depressive disorder, single episode, unspecified; E03.9 Hypothyroidism, unspecified; J45.909 Unspecified asthma, uncomplicated; E78.00 Pure hypercholesterolemia, unspecified; I10 Essential (primary) hypertension; G43.909 Migraine, unspecified, not intractable, without status migrainosus; J44.9 Chronic obstructive pulmonary disease, unspecified; K21.9 Gastro-esophageal reflux disease without esophagitis; E11.9 Type 2 diabetes mellitus without complications; F17.210 Nicotine dependence, cigarettes, uncomplicated; Z90.710 Acquired absence of both cervix and uterus; Z87.81 Personal history of (healed) traumatic fracture; Z86.14 Personal history of Methicillin resistant Staphylococcus aureus infection; Z87.01 Personal history of pneumonia (recurrent); Z87.39 Personal history of other diseases of the musculoskeletal system and connective tissue; Z93.0 Tracheostomy status; Z98.890 Other specified postprocedural states; Z79.52 Long term (current) use of systemic steroids; Z79.84 Long term (current) use of oral hypoglycemic drugs; Z88.8 Allergy status to other drugs, medicaments and biological substances; Z88.6 Allergy status to analgesic agent
CPT/HCPCS: 36415; 70450; 71045; 80053; 80306; 80320; 80329; 81000; 82550; 82553; 83735; 83880; 84443; 84484; 85025; 85610; 85730; 87077; 87088; 93005; 93041; 96361; 96374

== ENCOUNTER 2017-12-27 22:42 | Emergency (ER) | payer MEDICAID ==
[~2017-12-27] VITALS: Ht 175.3 cm; Wt 117.5 kg
[~2017-12-27 22:42] MED LIST changes: -IPRA3AMP IH; +IPRA3AMP31 IH; +NITR-65 PO; +TRAZ-190 PO; -TRAZ100T92 PO
--- OUTSIDE RECORDS SUMMARY | 2017-12-27 22:46 | XMS REPORT | Clinical Summary ---
Author Author [facility] Organization [facility] Address Unknown Phone Unavailable Care Team Providers Care [employer]able [employer] Broker Name Role Phone ThomasSusy sullivan ARABELLA PCP Source Comments Some departments are not documenting in the electronic medical record. If you do not see the information that you expected, contact Release of Information in the Health Information Management department at [phone] for further assistance in locating additional records.[facility] Allergies Not on File Current [...]
--- NOTE | 2017-12-27 23:37 | ED General ---
General Chief Complaint: Dizziness/Syncope Stated Complaint: DIZZY SPELLS ALL DAY Source of Information: Patient, Spouse Exam Limitations: No Limitations History of Present Illness Date Seen by Provider: Dec 27, 2017 Time Seen by Provider: 23:22 Initial Comments The patient presents to the ER by private conveyance with a chief complaint that since August she's been feeling dizzy. Dizziness to her means that the room is spinning and she being pulled and multiple different directions. She has not followed up with her primary care doctor because she says Mee Rogers who was her PCP, is no longer available at the clinic. She has not followed up with anyone else yet. There is nothing about her symptoms tonight that is different. She says she since August has been experiencing these dizzy spells upwards of for even 5 times a day. She's had no fevers chills or vomiting. She's had no sweats or chest pain. She is not short of breath. She says for the past week she has had a sore throat. She's never been to a specialist or been told she might have Mnire's disease. She says she does hear a buzzing tinnitus tone like after going to the [employer] [place] and hearing loud motors. 2 weeks ago she was diagnosed with an otitis externa on one of her ears and was given eardrops by urgent care. She took them and her symptoms resolved. Allergies and Home Medications Allergies Coded Allergies: methocarbamol (Unverified Allergy, Unknown, 10/13/15) fentanyl (Verified Adverse Reaction, Unknown, 11/19/13) Home Medications Albuterol/Ipratropium 4 Gm Aero, 1 PUFF IH QID PRN for SHORTNESS OF BREATH, ( Reported) Alprazolam 0.5 Mg Tablet, 0.5 MG PO BID PRN for ANXIETY, (Reported) Ascorbate Calcium 500 Mg Tablet, 500 MG PO DAILY, (Reported) Azithromycin 500 Mg Tablet, 500 MG PO DAILY FOR INFECTION Prescribed by: VIDAL GALEANA on 07/14/172352 Benzonatate 100 Mg Capsule, 1-2 TAB PO TID Prescribed by: VIDAL GALEANA on 07/14/172352 Brexpiprazole 2 Mg Tablet, 2 MG PO HS, (Reported) Budesonide 90 Mcg Aer.pow.ba, 90 MCG IH BID Prescribed by: VIDAL GALEANA on 07/14/172352 Buspirone HCl 5 Mg Tablet, 5 MG PO BID, (Reported) Cefdinir 300 Mg Capsule, 300 MG PO BID Prescribed by: VIDAL GALEANA on 07/14/172352 Furosemide 20 Mg Tablet, 20 MG PO DAILY PRN for SWELLING, (Reported) Ipratropium/Albuterol Sulfate 3 Ml Ampul.neb, 3 ML IH Q4H PRN for SHORTNESS OF BREATH Prescribed by: NANDO MANCILLA on 07/17/17 09 Levofloxacin 750 Mg Tablet, 750 MG PO DAILY Prescribed by: RICHAR FRENCH on 08/01/17 042 Levothyroxine Sodium 150 Mcg Tablet, 150 MCG PO DAILY, (Reported) Lisinopril 2.5 Mg Tablet, 2.5 MG PO DAILY, (Reported) Lovastatin 20 Mg Tablet, 20 MG PO DAILY, (Reported) Metformin HCl 500 Mg Tab.er.24h, 500 MG PO BID WITH MEALS, (Reported) Nabumetone 500 Mg Tablet, 500 MG PO BID WITH MEALS, (Reported) Nitrofurantoin Monohyd/M-Cryst 100 Mg Capsule, 100 MG PO BID Prescribed by: VIDAL GALEANA on 08/16/17 0235 [place] 3 Polyunsat Fatty Acids 1,000 Mg Cap, 1,000 MG PO DAILY, (Reported) Potassium Chloride 10 Meq Tablet.er, 10 MEQ PO DAILY PRN for WHEN TAKING FUROSEMIDE, (Reported) Prednisone 10 Mg Tab.ds.pk, 10 MG PO DAILY Take 6 tabs(60mg)daily,decrease by 1 tab(10mg)every other day. Prescribed by: NANDO MANCILLA on 07/17/17 0841 Tizanidine HCl 4 Mg Tablet, 8 TAB PO TID, (Reported) TAKES 2 (4MG) TABLETS Trazodone HCl 150 Mg Tablet, 150-300 MG PO HS, (Reported) Vortioxetine Hydrobromide 20 Mg Tablet, 20 MG PO HS, (Reported) Patient Home Medication List Home Medication List Reviewed: Yes Review of Systems Constitutional: No chills, No diaphoresis EENTM: No hearing loss, No ear pain Respiratory: No cough, No short of breath Cardiovascular: No chest pain, No edema Gastrointestinal: No abdominal pain, No constipation, No diarrhea, No nausea Genitourinary: No discharge, No dysuria : No (status post hysterectomy) Musculoskeletal: No back pain, No joint pain Past Jkweuch-Vxcaaf-Eyjzmk Hx Patient Social History Alcohol Use: Denies Use Recreational Drug Use: No Smoking Status: Current Everyday Smoker Type Used: Cigarettes 2nd Hand Smoke Exposure: Yes Recent Foreign Travel: No Contact w/Someone Who Travel: No Recent Hopitalizations: No Immunizations Up To Date Tetanus Booster (TDap): Unknown Date of Influenza Vaccine: Feb 08, 2017 Seasonal Allergies Seasonal Allergies: Yes Past Medical History Surgeries: Yes Gallbladder, Hysterectomy, Oophorectomy, Orthopedic, Tracheostomy Respiratory: Yes (surgical bx for pneumonia/on ventilator WITH TRACH 1996) Asthma, Pneumonia, Chronic Bronchitis, COPD Currently Using CPAP: No Currently Using BIPAP: No Cardiac: Yes High Cholesterol, Hypertension Neurological: Yes (lumbar neural foraminal stenosis) Headaches /Migraines 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 No Pertinent Family Hx Physical Exam Vital Signs Vital Signs - First Documented 12/28/17 00:01 Pulse 69 76 B/P (MAP) 108/70 (83) 117/77 (90) Capillary Refill : Height, Weight, BMI Height: 5'9.00" Weight: 253lbs. 0.0oz. 114.289272js; 40.0 BMI Method:Stated General Appearance: No Apparent Distress, WD/WN Eyes: Bilateral Eye Normal Inspection, Bilateral Eye PERRL, Bilateral Eye EOMI HEENT: PERRL/EOMI, TMs Normal, Normal ENT Inspection, Pharynx Normal, Moist Mucous Membranes, Other (bilateral canals are clear.) Neck: Full Range of Motion, Normal Inspection, Non Tender, Supple Respiratory: Chest Non Tender, Lungs Clear, Normal Breath Sounds, No Accessory Muscle Use, No Respiratory Distress Cardiovascular: Regular Rate, Rhythm, No Edema, Normal Peripheral Pulses Gastrointestinal: Normal Bowel Sounds, Non Tender, Soft Neurologic/Psychiatric: Alert, Oriented x3, No Motor/Sensory Deficits, Normal Mood/Affect, personal assistant II-XII Norm as Tested Progress/Results/Core Measures Suspected Sepsis SIRS Temperature: Pulse: Respiratory Rate: Laboratory Tests 12/27/17 23:56: White Blood Count 9.5 Blood Pressure / Mean: Laboratory Tests 12/27/17 23:56: Creatinine 0.68, Platelet Count 352, Total Bilirubin 0.4 Results/Orders Lab Results Laboratory Tests Test 12/27/17 23:56 Range/Units White Blood Count 9.5 4.3-11.0 10^3/uL Red Blood Count 3.85 L 4.35-5.85 10^6/uL Hemoglobin 12.2 11.5-16.0 G/DL Hematocrit 36 35-52 % Mean Corpuscular Volume 93 80-99 FL Mean Corpuscular Hemoglobin 32 25-34 PG Mean Corpuscular Hemoglobin Concent 34 32-36 G/DL Red Cell Distribution Width 14.1 10.0-14.5 % Platelet Count 352 130-400 10^3/uL Mean Platelet Volume 9.7 7.4-10.4 FL Neutrophils (%) (Auto) 54 42-75 % Lymphocytes (%) (Auto) 33 12-44 % Monocytes (%) (Auto) 9 0-12 % Eosinophils (%) (Auto) 4 0-10 % Basophils (%) (Auto) 1 0-10 % Neutrophils # (Auto) 5.2 1.8-7.8 X 10^3 Lymphocytes # (Auto) 3.1 1.0-4.0 X 10^3 Monocytes # (Auto) 0.9 0.0-1.0 X 10^3 Eosinophils # (Auto) 0.3 0.0-0.3 10^3/uL Basophils # (Auto) 0.1 0.0-0.1 10^3/uL Sodium Level 138 135-145 MMOL/L Potassium Level 3.4 L 3.6-5.0 MMOL/L Chloride Level 105 98-107 MMOL/L Carbon Dioxide Level 23 21-32 MMOL/L Anion Gap 10 5-14 MMOL/L Blood Urea Nitrogen 8 7-18 MG/DL Creatinine 0.68 0.60-1.30 MG/DL Estimat Glomerular Filtration Rate > 60 BUN/Creatinine Ratio 12 Glucose Level 116 H 70-105 MG/DL Calcium Level 9.0 8.5-10.1 MG/DL Corrected Calcium 8.8 8.5-10.1 MG/DL Total Bilirubin 0.4 0.1-1.0 MG/DL Aspartate Amino Transf (AST/SGOT) 19 5-34 U/L Alanine Aminotransferase (ALT/SGPT) 27 0-55 U/L Alkaline Phosphatase 69 40-136 U/L Troponin I < 0.30 <0.30 NG/ML Total Protein 6.8 6.4-8.2 GM/DL Albumin 4.3 3.2-4.5 GM/DL Thyroid Stimulating Hormone (TSH) 0.37 0.35-4.94 UIU/ML Group A Streptococcus Screen NEGATIVE NEGATIVE My Orders Orders - RICHAR FRENCH Orthostatic Vital Signs (Adult (12/27/17 23:30) Ekg Tracing (12/27/17 23:30) Continuous Ekg Monitoring (12/27/17 23:30) Cbc With Automated Diff (12/27/17 23:30) Comprehensive Metabolic Panel (12/27/17 23:30) Rapid Strep A Screen (12/27/17 23:30) Thyroid Stimulating Hormone (12/27/17 23:30) Troponin I (12/27/17 23:30) Chest Pa/Lat (2 View) (12/28/17 00:01) Ondansetron Injection (Zofran Injectio (12/28/17 01:00) Ondansetron Oral Dissolve Tab (Zofran (12/28/17 01:00) Medications Given in ED Current Medications Medications Dose Ordered Sig/Bridgette Route Start Time Stop Time Status Last Admin Dose Admin Ondansetron HCl 4 mg STK-MED ONCE .ROUTE 12/28/17 01:00 12/28/17 01:03 DC 12/28/17 01:10 4 MG Vital Signs/I&O 12/28/17 00:01 Pulse 69 76 B/P (MAP) 108/70 (83) 117/77 (90) Capillary Refill : Progress Note #1: Time: 23:39 Progress Note Sounds like Mnire's disease with a tinnitus, being pulled to the side and vertigo. We will check a set of orthostatics EKG basic labs and if all these things are unremarkable to include a TSH and will refer her back to her primary care doctor or ENT. As far as her sore throat and difficulty swallowing goes for the past week. It is similar timing to her outer ear infection so we'll just check a strep swab and basic chest x-ray. Progress Note #2: Time: 01:59 Progress Note Will make recommendations she follow up with her primary care doctor or refer to ENT for what could possibly be Mnire's disease. ECG Initial ECG Impression Date: Dec 27, 2017 Initial ECG Impression Time: 23:42 Initial ECG Rate: 70 Initial ECG Rhythm: Normal Sinus Initial ECG Intervals: QT (514) Initial ECG Impression: Normal, Nonspecific Changes Comment No ST elevation or depression. Diagnostic Imaging Diagonstic Imaging: Xray Plain Films/CT/US/NM/MRI: chest (2v) Comments Spinal stimulator noted. No acute cardiopulmonary processes. Reviewed: Reviewed by Me Departure Impression Primary Impression: Vertigo Disposition: HOME, SELF-CARE Condition: Stable Departure-Patient Inst. Decision time for Depature: 02:00 Referrals: BON PORTER DO (PCP) Primary Care Physician RICARDO ROGERS (Family) Primary Care Physician EKATERINA CARRANZA MD Patient Instructions: Vertigo (a Type of Dizziness) (DC) Add. Discharge Instructions: Follow-up with either your primary care doctor or you can call Dr. Carranza for an appointment for evaluation for your vertigo. If you have nausea you can take one tablet of Zofran every 6 hours. You May also try the meclizine 1 tablet every 6 hours. All discharge instructions reviewed with patient and/or family. Voiced understanding. Scripts Ondansetron (Ondansetron Odt) 4 Mg Tab.rapdis 4 MG PO Q6H PRN for NAUSEA/VOMITING, #8 TAB 0 Refills Prov: RICHAR FRENCH 12/28/17 Meclizine HCl (Meclizine HCl) 12.5 Mg Tablet 12.5 MG PO Q6H PRN for DIZZINESS for 14 Days, #20 TAB 0 Refills Prov: RICHAR FRENCH 12/28/17 Copy Copies To 1: EKATERINA CARRANZA MD, TITUS J Dec 27, 2017 23:37
[2017-12-28 00:01] VITALS: BP_SYST 108; BP_SYST 117; BP_DIAS 70; BP_DIAS 77
[2017-12-28 00:16] LABS: BASOPHILS # (AUTO) 0.1 10^3/uL (0.0-0.1); BASOPHILS % (AUTO) 1 % (0-10); EOSINOPHILS # (AUTO) 0.3 10^3/uL (0.0-0.3); EOSINOPHILS % (AUTO) 4 % (0-10); HEMATOCRIT 36 % (35-52); HEMOGLOBIN 12.2 G/DL (11.5-16.0); LYMPHOCYTES # (AUTO) 3.1 X 10^3 (1.0-4.0); LYMPHOCYTES % (AUTO) 33 % (12-44); MEAN CORPUSCULAR HEMOGLOBIN 32 PG (25-34); MEAN CORPUSCULAR HGB CONC 34 G/DL (32-36); MEAN CORPUSCULAR VOLUME 93 FL (80-99); MEAN PLATELET VOLUME 9.7 FL (7.4-10.4); MONOCYTES # (AUTO) 0.9 X 10^3 (0.0-1.0); MONOCYTES % (AUTO) 9 % (0-12); NEUTROPHILS # (AUTO) 5.2 X 10^3 (1.8-7.8); NEUTROPHILS % (AUTO) 54 % (42-75); PLATELET COUNT 352 10^3/uL (130-400); RED BLOOD COUNT 3.85 10^6/uL (4.35-5.85); RED CELL DISTRIBUTION WIDTH 14.1 % (10.0-14.5); WHITE BLOOD COUNT 9.5 10^3/uL (4.3-11.0)
[2017-12-28 00:31] LABS: ALANINE AMINOTRANSFERASE 27 U/L (0-55); ALBUMIN 4.3 GM/DL (3.2-4.5); ALKALINE PHOSPHATASE 69 U/L (40-136); BILIRUBIN,TOTAL 0.4 MG/DL (0.1-1.0); BUN/CREATININE RATIO 12; CARBON DIOXIDE 23 MMOL/L (21-32); CHLORIDE 105 MMOL/L (98-107); CREATININE SERUM 0.68 MG/DL (0.60-1.30); GFR ESTIMATED > 60; GLUCOSE 116 MG/DL (70-105); POTASSIUM 3.4 MMOL/L (3.6-5.0); SODIUM 138 MMOL/L (135-145); TOTAL PROTEIN 6.8 GM/DL (6.4-8.2)
[2017-12-28] MEDS ORDERED: ONDANSETRON 4 MG (ZOFRAN) ORAL DISSOLVE TAB ONE (01:00)
[2017-12-28] MEDS ORDERED: ONDANSETRON 4 MG/2 ML (SDV) Z0FRAN IVP ONE (01:00)
[2017-12-28] MEDS ORDERED: ONDA4TAB11 PO (02:02)
[2017-12-28] MEDS ORDERED: MECL12.579 PO (02:02)
[2017-12-28 02:29] VITALS: BP 112/70
--- NOTE | 2017-12-28 07:48 | Diagnostic Imaging Report ---
INDICATION: Dizziness and tremor PA and lateral views of the chest are obtained with comparison made to study of 08/16/2017. FINDINGS: Heart size and pulmonary vascularity are within normal limits, and the lungs are clear, bilaterally. No significant change is identified. IMPRESSION: Unremarkable chest. Dictated by: Dictated on workstation # [id number]
== END 2017-12-28 02:29 | disposition home or self-care (01) ==
LOC: EDUNIT# 22:42 → ER 22:43
DX: R42 Dizziness and giddiness (principal); J44.9 Chronic obstructive pulmonary disease, unspecified; I10 Essential (primary) hypertension; E78.00 Pure hypercholesterolemia, unspecified; G43.909 Migraine, unspecified, not intractable, without status migrainosus; K21.9 Gastro-esophageal reflux disease without esophagitis; E03.9 Hypothyroidism, unspecified; E11.9 Type 2 diabetes mellitus without complications; F41.9 Anxiety disorder, unspecified; F32.9 Major depressive disorder, single episode, unspecified; F17.210 Nicotine dependence, cigarettes, uncomplicated; Z90.710 Acquired absence of both cervix and uterus; Z93.0 Tracheostomy status; Z88.8 Allergy status to other drugs, medicaments and biological substances; Z88.5 Allergy status to narcotic agent; Z79.84 Long term (current) use of oral hypoglycemic drugs
CPT/HCPCS: 36415; 71046; 80053; 84443; 84484; 85025; 87430; 93005

== ENCOUNTER 2018-02-12 21:12 | Emergency (ER) | payer MEDICAID ==
[~2018-02-12] VITALS: Ht 175.3 cm; Wt 114.8 kg
[~2018-02-12 21:12] MED LIST changes: -BENZ-13 PO; +BENZ100C18 PO; +MECL12.579 PO; +ONDA4TAB11 PO; -OXYC-197 PO; +OXYC1TAB87 PO
--- OUTSIDE RECORDS SUMMARY | 2018-02-12 21:19 | XMS REPORT | Clinical Summary ---
Author Author [facility] Organization [facility] Address Unknown Phone Unavailable Care Team Providers Care Title Assistant Name Role Phone ThomasSusy sullivan ARABELLA PCP Source Comments Some departments are not documenting in the electronic medical record. If you do not see the information that you expected, contact Release of Information in the Health Information Management department at [phone] for further assistance in locating additional records.[facility] Allergies Not on File Current Medications [...]
[2018-02-12] MEDS ORDERED: KETOROLAC 60 MG/2 ML VIAL IM ONE (21:45)
[2018-02-12] MEDS ORDERED: morphine INJ 10 MG/ML 1ML (SYR OR VIAL) IJ ONE (21:45)
--- NOTE | 2018-02-12 21:49 | ED Lower Extremity ---
General Chief Complaint: Lower Extremity Stated Complaint: LEGS GOING NUMB COUPLE OF WEEKS,WORSE TODAY Nursing Triage Note: BILATERAL INTERMITTANT LOWER EXT NUMBNESS. WORSE TODAY. Nursing Sepsis Screen: No Definite Risk Source: patient Exam Limitations: no limitations History of Present Illness Date Seen by Provider: Feb 12, 2018 Time Seen by Provider: 21:50 Initial Comments To ER with midline low back pain. This radiates down the posterior right thigh to the mid thigh. This radiates down the posterior and lateral left thigh terminating at the knee. She's had this issue for several months has been getting progressively worse. She does report intermittent numbness between her legs and intermittent urinary incontinence. She denies any fevers or chills. Denies any history of IV drug use. Denies any history of cancer. She does report a history of spinal stenosis. She states that she has a spinal stimulator that was placed by Dr. Bacon about 2 years ago in [place]. At present, she does not have any numbness between her legs. Severity: moderate Pain/Injury Location: bilateral other (midline low back) Method of Injury: unknown Allergies and Home Medications Allergies Coded Allergies: methocarbamol (Unverified Allergy, Unknown, 10/13/15) fentanyl (Verified Adverse Reaction, Unknown, 11/19/13) Home Medications Albuterol/Ipratropium 4 Gm Aero, 1 PUFF IH QID PRN for SHORTNESS OF BREATH, ( Reported) Alprazolam 0.5 Mg Tablet, 0.5 MG PO BID PRN for ANXIETY, (Reported) Brexpiprazole 2 Mg Tablet, 2 MG PO HS, (Reported) Budesonide 90 Mcg Aer.pow.ba, 90 MCG IH BID Prescribed by: VIDAL GALEANA on 07/14/17 8123 Buspirone HCl 5 Mg Tablet, 5 MG PO BID, (Reported) Ipratropium/Albuterol Sulfate 3 Ml Ampul.neb, 3 ML IH Q4H PRN for SHORTNESS OF BREATH Prescribed by: NANDO MANCILLA on 07/17/17 0902 Levothyroxine Sodium 150 Mcg Tablet, 150 MCG PO DAILY, (Reported) Lisinopril 2.5 Mg Tablet, 2.5 MG PO DAILY, (Reported) Lovastatin 20 Mg Tablet, 20 MG PO DAILY, (Reported) Meclizine HCl 12.5 Mg Tablet, 12.5 MG PO Q6H PRN for DIZZINESS Prescribed by: RICHAR FRENCH on 12/28/17201 Metformin HCl 500 Mg Tab.er.24h, 500 MG PO BID WITH MEALS, (Reported) Nabumetone 500 Mg Tablet, 500 MG PO BID WITH MEALS, (Reported) Ondansetron 4 Mg Tab.rapdis, 4 MG PO Q6H PRN for NAUSEA/VOMITING Prescribed by: RICHAR FRENCH on 12/28/17201 Pantoprazole Sodium 40 Mg Tablet.dr, 40 MG PO DAILY Prescribed by: HECTOR MONSIVAIS on 02/12/182221 Prednisone 20 Mg Tab, 40 MG PO DAILY Prescribed by: HECTOR MONSIVAIS on 02/12/182221 Tizanidine HCl 4 Mg Tablet, 8 TAB PO TID, (Reported) TAKES 2 (4MG) TABLETS Trazodone HCl 150 Mg Tablet, 150-300 MG PO HS, (Reported) Vortioxetine Hydrobromide 20 Mg Tablet, 20 MG PO HS, (Reported) Patient Home Medication List Home Medication List Reviewed: Yes Review of Systems Constitutional: see HPI; No chills, No fever EENTM: see HPI Respiratory: no symptoms reported Cardiovascular: no symptoms reported Genitourinary: no symptoms reported Musculoskeletal: see HPI, back pain Skin: no symptoms reported Psychiatric/Neurological: No Symptoms Reported Past Lwcxdta-Uiujmj-Yeiacs Hx Patient Social History Alcohol Use: Denies Use Recreational Drug Use: Yes Drug of Choice: CANNIBUS Smoking Status: Current Everyday Smoker Type Used: Cigarettes 2nd Hand Smoke Exposure: Yes Recent Foreign Travel: No Contact w/Someone Who Travel: No Recent Infectious Disease Expo: No Recent Hopitalizations: No Immunizations Up To Date Tetanus Booster (TDap): Unknown Date of Influenza Vaccine: Feb 08, 2017 Seasonal Allergies Seasonal Allergies: No Past Medical History Surgeries: Yes Gallbladder, Hysterectomy, Oophorectomy, Orthopedic, Tracheostomy Respiratory: Yes (surgical bx for pneumonia/on ventilator WITH TRACH 1996) Asthma, Pneumonia, Chronic Bronchitis, COPD Currently Using CPAP: No Currently Using BIPAP: No Cardiac: Yes High Cholesterol, Hypertension Neurological: Yes (lumbar neural foraminal stenosis) Headaches /Migraines : No 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 No Pertinent Family Hx Physical Exam Vital Signs Vital Signs - First Documented 02/12/18 21:25 Temp 98.4 Pulse 78 Resp 18 B/P (MAP) 108/49 (68) Pulse Ox 96 O2 Delivery Room Air Capillary Refill : Less Than 3 Seconds Height, Weight, BMI Height: 5'9.00" Weight: 253lbs. 0.0oz. 114.543646ba; 40.0 BMI Method:Stated General Appearance: WD/WN, no apparent distress HEENT: PERRL/EOMI, normal ENT inspection Neck: non-tender, full range of motion Gastrointestinal: non tender, soft Hips: bilateral hip non-tender, bilateral hip normal inspection, bilateral hip normal range of motion Legs: bilateral leg non-tender, bilateral leg normal inspection, bilateral leg normal range of motion Knees: bilateral knee non-tender, bilateral knee normal inspection, bilateral knee normal range of motion Ankles: bilateral ankle non-tender, bilateral ankle normal inspection, bilateral ankle normal range of motion Feet: bilateral foot non-tender, bilateral foot normal inspection, bilateral foot normal range of motion Neurologic/Psychiatric: alert, normal mood/affect, oriented x 3 Skin: normal color, warm/dry Progress/Results/Core Measures Results/Orders My Orders Orders - HECTOR MONSIVAIS APRN Ketorolac Injection (Toradol Injection) (02/12/18 21:45) Morphine Injection (Morphine Injection (02/12/18 21:45) Ct Lumbar Spine Wo (02/12/18 21:40) Bladder Scan (02/12/18 21:40) Medications Given in ED Current Medications Medications Dose Ordered Sig/Bridgette Route Start Time Stop Time Status Last Admin Dose Admin Ketorolac Tromethamine 60 mg ONCE ONCE IM 02/12/18 21:45 02/12/18 21:46 DC 02/12/18 22:08 60 MG Morphine Sulfate 10 mg ONCE ONCE IJ 02/12/18 21:45 02/12/18 21:46 DC 02/12/18 22:08 10 MG Vital Signs/I&O 02/12/18 21:25 Temp 98.4 Pulse 78 Resp 18 B/P (MAP) 108/49 (68) Pulse Ox 96 O2 Delivery Room Air Blood Pressure Mean: 68 Departure Communication (Admissions) 2220- postvoid residual bladder scan reveals 53ml urine, 2247- ET report per stat read shows lumbar spondylosis no fracture or subluxation. There is severe spinal stenosis at L4-L5 and severe foraminal stenosis at L5-S1. Findings do not appear significantly changed from prior study of 03/21/2017 Impression Primary Impression: Acute exacerbation of chronic low back pain Disposition: HOME, SELF-CARE Condition: Stable Departure-Patient Inst. Decision time for Depature: 22:20 Referrals: ASH FREEDMAN MD (PCP/Family) Primary Care Physician Patient Instructions: Low Back Pain (DC) Add. Discharge Instructions: 1. Follow-up with [facility] within 1 week. Steroids as directed. Return to ER for any concerns such as complete loss of sensation of your genitals, unable to control bowel or bladder, fevers or chills.. All discharge instructions reviewed with patient and/or family. Voiced understanding. Scripts Pantoprazole Sodium (Protonix) 40 Mg Tablet.dr 40 MG PO DAILY, #10 TAB Prov: HECTOR MONSIVAIS APRN 02/12/18 Prednisone (Prednisone) 20 Mg Tab 40 MG PO DAILY, #8 TAB Prov: HECTOR MONSIVAIS APRN 02/12/18 HECTOR MONSIVAIS APRN Feb 12, 2018 21:49
[2018-02-12] MEDS ORDERED: PANT40TA2 PO (22:22)
[2018-02-12] MEDS ORDERED: PRD20T PO (22:22)
[2018-02-12 22:59] VITALS: BP 108/49
--- NOTE | 2018-02-13 06:00 | Diagnostic Imaging Report ---
PROCEDURE: CT lumbar spine without contrast. TECHNIQUE: Multiple contiguous axial images were obtained through the lumbar spine without the use of intravenous contrast. Sagittal and coronal reformations were then performed. INDICATION: Chronic lower back pain. Bilateral leg numbness. FINDINGS: For the purposes of this exam, last well-formed disc space is noted the L5-S1 level. Static alignment is maintained. There is no significant anterolisthesis or retrolisthesis. There is no evidence of jumped facets. Vertebral body heights are maintained. There is no evidence of acute fracture. No bony fragments are seen within the spinal canal. There are mild multilevel degenerative changes consisting of mild intervertebral disc height loss with multilevel facet arthropathy. Indwelling neurostimulator device is noted with the lead projecting within the posterior epidural space at the T10 and T11 levels. Pre-and paravertebral soft tissue structures are unremarkable. There is mild scattered calcified aortic atherosclerosis. Evaluation of spinal canal contents is suboptimal given CT modality and lack of intrathecal contrast. There does appear to be moderate narrowing of the spinal canal at the L4-L5 level secondary to broad-based posterior disc bulge, ligamentum flavum laxity, and facet arthropathy. IMPRESSION: 1. No CT evidence of acute fracture or dislocation lumbar spine. 2. Multilevel degenerative changes, which appear greatest at the L4-L5 level. If further evaluation of spinal canal or neural foraminal stenosis is desired, correlation with CT myelogram is recommended. 3. Indwelling neurostimulator device as described above. Dictated by: Dictated on workstation # [id number]
== END 2018-02-12 22:59 | disposition home or self-care (01) ==
LOC: EDUNIT# 21:12 → ER 21:13
DX: M54.5 Low back pain (principal); G89.29 Other chronic pain; J44.9 Chronic obstructive pulmonary disease, unspecified; E78.00 Pure hypercholesterolemia, unspecified; I10 Essential (primary) hypertension; E03.9 Hypothyroidism, unspecified; E11.9 Type 2 diabetes mellitus without complications; F41.9 Anxiety disorder, unspecified; F32.9 Major depressive disorder, single episode, unspecified; G43.909 Migraine, unspecified, not intractable, without status migrainosus; K21.9 Gastro-esophageal reflux disease without esophagitis; F12.10 Cannabis abuse, uncomplicated; F17.210 Nicotine dependence, cigarettes, uncomplicated; Z90.710 Acquired absence of both cervix and uterus; Z87.19 Personal history of other diseases of the digestive system; Z86.14 Personal history of Methicillin resistant Staphylococcus aureus infection; Z93.0 Tracheostomy status; Z87.01 Personal history of pneumonia (recurrent); Z88.8 Allergy status to other drugs, medicaments and biological substances; Z79.51 Long term (current) use of inhaled steroids; Z79.52 Long term (current) use of systemic steroids; Z79.84 Long term (current) use of oral hypoglycemic drugs
CPT/HCPCS: 72131

== ENCOUNTER → 2018-04-28 | Outpatient (CLI) | payer MEDICAID ==
[~2018-04-28] MED LIST changes: +GADOBUTROL 15 MMOL/15 ML (GADAVIST) VIAL IV ONE; +PANT40TA2 PO
--- NOTE | 2018-04-28 14:23 | Diagnostic Imaging Report ---
PROCEDURE: MR imaging of the brain with and without contrast. TECHNIQUE: Multiplanar, multisequence MR imaging of the brain was performed with and without contrast. INDICATION: Seizures and dizziness. No prior MRI brain studies are available for comparison. The ventricles and sulci are within normal limits. No diffusion restriction is identified. Normal expected flow-voids within the carotid siphons are seen. No acute intra-axial or extra-axial hemorrhage is detected. There is no abnormal enhancement following contrast administration. Corpus callosum is unremarkable. The sella and parasellar structures are unremarkable. Hippocampal formations demonstrate normal signal and normal volume. IMPRESSION: Unremarkable MRI of the brain with and without contrast. Dictated by: Dictated on workstation # [id number]
== END ==
LOC: RAD 11:50
PROVIDERS: ATTEND Psychiatry & Neurology Neurology
DX: R56.9 Unspecified convulsions (principal); R42 Dizziness and giddiness
CPT/HCPCS: 70553

== ENCOUNTER 2018-06-16 20:21 | Outpatient (CLI) | payer MEDICAID ==
[~2018-06-16 20:21] MED LIST changes: -GADOBUTROL 15 MMOL/15 ML (GADAVIST) VIAL IV ONE
== END 2018-06-17 06:40 | disposition home or self-care (01) ==
LOC: SLEEP 20:21
PROVIDERS: ATTEND Psychiatry & Neurology Neurology
DX: G47.33 Obstructive sleep apnea (adult) (pediatric) (principal); R06.83 Snoring; G47.10 Hypersomnia, unspecified; R55 Syncope and collapse; G40.909 Epilepsy, unspecified, not intractable, without status epilepticus
CPT/HCPCS: 95810

== ENCOUNTER 2018-07-13 11:49 | Emergency (ER) | payer MEDICAID ==
[~2018-07-13] VITALS: Ht 175.3 cm; Wt 112.0 kg
--- OUTSIDE RECORDS SUMMARY | 2018-07-13 11:56 | XMS REPORT | Clinical Summary ---
Author Author [facility] Organization [facility] Address Unknown Phone Unavailable Care Team Providers Care Shrimp Peeling Machine Tender Name Role Phone Susy Butler BACK TENDER FOURDRINIER PCP Source Comments Some departments are not documenting in the electronic medical record. If you do not see the information that you expected, contact Release of Information in the Health Information Management department at [phone] for further assistance in locating additional records.[facility] Allergies Not on File Medications Not on file Active Problems Not on file Social History Date Tobacco Use Types Packs/Day Years Used Never Assessed Sex Assigned at Date Recorded Not on file Industry Job Start Date Occupation Not on file Not on file Not on file Travel End Travel History Travel Start No recent travel history available. Last Filed Vital Signs Not on file Plan of Treatment Health Maintenance Due Date Last Done Comments PHYSICAL (COMPREHENSIVE) 12/09/1982 EXAM HIV SCREENING 12/09/1990 DTAP/TDAP VACCINES ( - 12/09/1993 Tdap) CERVICAL CANCER SCREENING 12/09/2005 BREAST CANCER SCREENING 2015 INFLUENZA VACCINE 2018 Results Not on filefrom Last 3 Months Insurance Payer Benefit Subscriber ID Type Phone Address Plan / Group [facility] MEDICAID [facility] xxxxxxxxxxx Medicaid [employer] [place] Advance Directives Patient has advance care planning documents on file. For more information, please contact: [facility] [address] [place] [address]
[2018-07-13] MEDS ORDERED: RT-ALBUTEROL/IPRATROPIUM 3 ML (DUONEB) VIAL INH ONE (12:15)
--- NOTE | 2018-07-13 12:44 | ED Cough/URI ---
General Chief Complaint: Cough/Cold/Flu Symptoms Stated Complaint: COUGH Nursing Triage Note: PATIENT AMBULATORY TO FT 1 WITH COMPLAINT OF COUGH THAT STARTED FRIDAY. PATIENT STATES SHE BEGAN WITH HEAD CONGESTION AND NOW HAS CHEST CONGESTION. SHE STATES COUGH INITIALLY WAS PRODUCTIVE WITH YELLOW BROWN SPUTUM BUT IS NO LONGER PRODUCTIVE TODAY. SHE STATES SHE IS SHORT OF BREATH TODAY. SHE NORMALLY ONLY WEARS OXYGEN AY NIGHT AT 2 LITERS BUT HAS HAD TO WEAR OXYGEN DURING THE DAY DUE TO THE SHORTNESS OF BREATH. Sepsis Screen: No Definite Risk Source: patient Exam Limitations: no limitations History of Present Illness Date Seen by Provider: Jul 13, 2018 Time Seen by Provider: 11:58 Initial Comments 42-year-old female who presents to the emergency room with complaints of productive cough, shortness of breath, and yellow-brown sputum. She denies fevers but reports that she has had body aches. She has history of COPD and wears oxygen at night but has increasing shortness of breath has been wearing her oxygen today. She was 90% on room air on arrival to the emergency room and martinez has this recurrent expiratory wheezes. No respiratory distress. Reports smoking half pack per day. She does not use inhalers or nebulizer treatments at home. Timing/Duration: other (3 days) Severity/Quality: productive cough, sputum (yellow brown) Associated Symptoms: cough, muscle aches, nasal congestion, shortness of breath Allergies and Home Medications Allergies Coded Allergies: methocarbamol (Unverified Allergy, Unknown, 10/13/15) fentanyl (Verified Adverse Reaction, Unknown, 11/19/13) Home Medications Albuterol/Ipratropium 4 Gm Aero, 1 PUFF IH QID PRN for SHORTNESS OF BREATH, ( Reported) Alprazolam 0.5 Mg Tablet, 0.5 MG PO BID PRN for ANXIETY, (Reported) Azithromycin 250 Mg Tablet, 250 MG PO UD TAKE 2 TABLETS TODAY, THEN TAKE 1 TABLET DAILY FOR 4 MORE DAYS Prescribed by: JONNY SÁNCHEZ on 07/13/18 1311 Brexpiprazole 2 Mg Tablet, 2 MG PO HS, (Reported) Budesonide 90 Mcg Aer.pow.ba, 90 MCG IH BID Prescribed by: VIDAL GALEANA on 07/14/17 2353 Buspirone HCl 5 Mg Tablet, 5 MG PO BID, (Reported) Ipratropium/Albuterol Sulfate 3 Ml Ampul.neb, 3 ML IH Q4H PRN for SHORTNESS OF BREATH Prescribed by: NANDO MANCILLA on 07/17/17 0902 Ipratropium/Albuterol Sulfate 3 Ml Ampul.neb, 3 ML IH Q4H PRN for SHORTNESS OF BREATH Prescribed by: JONNY SÁNCHEZ on 07/13/18 131 Levothyroxine Sodium 150 Mcg Tablet, 150 MCG PO DAILY, (Reported) Lisinopril 2.5 Mg Tablet, 2.5 MG PO DAILY, (Reported) Lovastatin 20 Mg Tablet, 20 MG PO DAILY, (Reported) Meclizine HCl 12.5 Mg Tablet, 12.5 MG PO Q6H PRN for DIZZINESS Prescribed by: RICHRA FRENCH on 12/28/17 020 Metformin HCl 500 Mg Tab.er.24h, 500 MG PO BID WITH MEALS, (Reported) Nabumetone 500 Mg Tablet, 500 MG PO BID WITH MEALS, (Reported) Ondansetron 4 Mg Tab.rapdis, 4 MG PO Q6H PRN for NAUSEA/VOMITING Prescribed by: RICHAR FRENCH on 12/28/17201 Pantoprazole Sodium 40 Mg Tablet.dr, 40 MG PO DAILY Prescribed by: HECTOR MONSIVAIS on 02/12/182221 Prednisone 20 Mg Tab, 40 MG PO DAILY Prescribed by: HECTOR MONSIVAIS on 02/12/182221 Prednisone 20 Mg Tab, 40 MG PO DAILY Prescribed by: JONNY SÁNCHEZ on 07/13/181310 Promethazine/Dextromethorphan 473 Ml Syrup, 5 ML PO Q4H Prescribed by: JONNY SÁNCHEZ on 07/13/18 131 Tizanidine HCl 4 Mg Tablet, 8 TAB PO TID, (Reported) TAKES 2 (4MG) TABLETS Trazodone HCl 150 Mg Tablet, 150-300 MG PO HS, (Reported) Vortioxetine Hydrobromide 20 Mg Tablet, 20 MG PO HS, (Reported) Patient Home Medication List Home Medication List Reviewed: Yes Review of Systems Review of Systems Constitutional: see HPI, malaise Respiratory: see HPI, cough, phlegm, short of breath All Other Systems Reviewed Negative Unless Noted: Yes Past Idhzshp-Ikohpr-Wctnwy Hx Past Med/Social Hx: Reviewed Nursing Past Med/Soc Hx Patient Social History Alcohol Use: Denies Use Recreational Drug Use: No Drug of Choice: CANNIBUS Smoking Status: Current Everyday Smoker Type Used: Cigarettes 2nd Hand Smoke Exposure: Yes Recent Foreign Travel: No Contact w/Someone Who Travel: No Recent Infectious Disease Expo: No Recent Hopitalizations: No Physical Abuse: No Sexual Abuse: No Mistreated: No Fear: No Immunizations Up To Date Tetanus Booster (TDap): Unknown Date of Influenza Vaccine: Feb 08, 2017 Seasonal Allergies Seasonal Allergies: No Past Medical History Surgeries: Yes (RIGHT LUNG BIOPSY) Gallbladder, Hysterectomy, Oophorectomy, Orthopedic, Tracheostomy Respiratory: Yes (surgical bx for pneumonia/on ventilator WITH TRACH 1996, WEARS OXYGEN AT 2 ) Asthma, Pneumonia, Chronic Bronchitis, Sleep Apnea, COPD Currently Using CPAP: No Currently Using BIPAP: No Cardiac: Yes High Cholesterol, Hypertension Neurological: Yes (lumbar neural foraminal stenosis) Headaches /Migraines 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 No Pertinent Family Hx Physical Exam Vital Signs - First Documented 07/13/18 07/13/18 11:55 12:40 Temp 98.4 Pulse 80 Resp 20 B/P (MAP) 105/56 (72) Pulse Ox 90 O2 Delivery Room Air Capillary Refill : Less Than 3 Seconds Height: 5'9.00" Weight: 247lbs. 0.0oz. 112.663258eb; 40.0 BMI Method:Stated General Appearance: WD/WN, no apparent distress Eyes: Bilateral Eye Normal Inspection, Bilateral Eye PERRL, Bilateral Eye EOMI Respiratory: no respiratory distress, no accessory muscle use, wheezing, expiration, inspiration Cardiovascular: normal peripheral pulses, regular rate, rhythm, no edema, no gallop, no JVD, no murmur Extremities: normal capillary refill Neurologic/Psychiatric: alert, normal mood/affect, oriented x 3 Skin: normal color, warm/dry Progress/Results/Core Measures Suspected Sepsis Recent Fever Within 48 Hours: No Infection Criteria Present: None New/Unexplained Altered Menta: No Sepsis Screen: No Definite Risk SIRS Temperature:98.4 Pulse: 80 Respiratory Rate: 20 Blood Pressure 105 /56 Mean: 72 Results/Orders Micro Results Microbiology 07/13/18 Influenza Types A,B Antigen (ULISES) - Final, Complete My Orders Orders - JONNY SÁNCHEZ Influenza A And B Antigens (07/13/18 11:54) Albuterol/Ipra Inhalation Soln (Duoneb I (07/13/18 12:15) Svn Small Volume Nebulizer (07/13/18 12:07) Chest Pa/Lat (2 View) (07/13/18 12:07) Medications Given in ED Current Medications Medications Dose Ordered Sig/Bridgette Route Start Time Stop Time Status Last Admin Dose Admin Albuterol/ Ipratropium 3 ml ONCE ONCE INH 07/13/18 12:15 07/13/18 12:16 DC 07/13/18 12:38 3 ML Vital Signs/I&O 07/13/18 07/13/18 07/13/18 11:55 12:40 13:56 Temp 98.4 98.4 Pulse 80 84 Resp 20 18 B/P (MAP) 105/56 (72) 119/59 (79) Pulse Ox 90 95 92 O2 Delivery Room Air Room Air Capillary Refill : Less Than 3 Seconds Blood Pressure Mean: 72 Progress Note : Time: 13:00 Progress Note I have seen and evaluated the patient. I have informed her of her laboratory and imaging studies. Her lungs have cleared and she has no longer wheezing after a breathing treatment. She will be sent home with a nebulizer treatment as she has a nebulizer machine from one of her children and is familiar how to use the machine. She agrees with plan of care, plans for discharge, return precautions were given. Diagnostic Imaging Diagonstic Imaging: Xray Plain Films/CT/US/NM/MRI: chest Comments [facility]. [place], [place] NAME: CROW HOPKINS Yaneth [facility] REC#: [id number] PT STATUS: REG ER : 1975 PHYSICIAN: JONNY SÁNCHEZ ADMIT DATE: 07/13/18/ER Draft Date of Exam:07/13/18 CHEST PA/LAT (2 VIEW) Indication: Shortness of breath. Comparison made with prior examination from 12/28/2017. Findings: There is a patchy right base infiltrate. Heart size normal. There is no pleural effusion or pneumothorax. The mediastinum is unremarkable. Impression: Patchy right base infiltrate suspect for early pneumonia. Dictated on workstation # [id number] Dict: 07/13/18 1254 Trans: 07/13/18 1258 [facility] [id number] Interpreted by: JASVIR ROMANO MD Electronically signed by: Reviewed: Reviewed by Me Departure Impression Primary Impression: Influenza Additional Impressions: Pneumonia Bronchitis Disposition: HOME, SELF-CARE Condition: Stable/Unchanged Departure-Patient Inst. Decision time for Depature: 13:03 Referrals: [facility]/DARRYN (PCP) Primary Care Physician MILAGROS DIAS APRN (Family) Primary Care Physician Patient Instructions: Pneumonia, Adult (DC), Acute Bronchitis, Adult (DC), Flu , Adult (DC) Add. Discharge Instructions: Take medications as directed. Tylenol and Motrin as directed by the bottle for pain and fever relief. Follow-up with your primary care provider on or Friday of this week call today for an appointment time. Return back to the emergency room for worsening symptoms, shortness of breath, requiring higher level of home O2, or any other concerns as needed. All discharge instructions reviewed with patient and/or family. Voiced understanding. Scripts Promethazine/Dextromethorphan (Promethazine-Dm Syrup) 473 Ml Syrup 5 ML PO Q4H, #60 ML Prov: JONNY SÁNCHEZ 07/13/18 Ipratropium/Albuterol Sulfate (Iprat-Albut 0.5-3(2.5) mg/3 ml) 3 Ml Ampul.neb 3 ML IH Q4H PRN for SHORTNESS OF BREATH, #20 EACH Prov: JONNY SÁNCHEZ 07/13/18 Azithromycin (Zithromax) 250 Mg Tablet 250 MG PO UD, #6 TAB TAKE 2 TABLETS TODAY, THEN TAKE 1 TABLET DAILY FOR 4 MORE DAYS Prov: JONNY SÁNCHEZ 07/13/18 Prednisone (Prednisone) 20 Mg Tab 40 MG PO DAILY for 5 Days, #10 TAB Prov: JONNY SÁNCHEZ 07/13/18 JONNY SÁNCHEZ Jul 13, 2018 12:44
--- NOTE | 2018-07-13 12:58 | Diagnostic Imaging Report ---
Indication: Shortness of breath. Comparison made with prior examination from 12/28/2017. Findings: There is a patchy right base infiltrate. Heart size normal. There is no pleural effusion or pneumothorax. The mediastinum is unremarkable. Impression: Patchy right base infiltrate suspect for early pneumonia. Dictated by: Dictated on workstation # [id number]
--- NOTE | 2018-07-13 13:06 | NUR ---
PATIENT STATES SHE IS FEELING BETTER AFTER BREATHING TREATMENT AND IS NOT SHORT OF BREATH. OXYGEN SATURATION IS NOW 92%. PATIENT STATES THIS LEVEL IS NORMAL FOR HER.
[2018-07-13] MEDS ORDERED: IPRA3AMP31 IH (13:11)
[2018-07-13] MEDS ORDERED: AZIT250T PO (13:11)
[2018-07-13] MEDS ORDERED: D-ME473S38 PO (13:11)
[2018-07-13] MEDS ORDERED: PRD20T PO (13:11)
[2018-07-13 13:56] VITALS: BP 119/59
--- NOTE | 2018-07-13 13:59 | NUR ---
PATIENT DISCHARGED FROM ER. SHE IS CONSCIOUS, ALERT AND ORIENTED X 4 AT TIME OF DISCHARGE WITH STABLE VITAL SIGNS. PATIENT STATES HER SHORTNESS OF BREATH IS IMPROVED AT TIME OF DISCHARGE.
== END 2018-07-13 14:00 | disposition home or self-care (01) ==
LOC: EDUNIT# 11:49 → ER 11:50
DX: J11.1 Influenza due to unidentified influenza virus with other respiratory manifestations (principal); J18.9 Pneumonia, unspecified organism; J44.9 Chronic obstructive pulmonary disease, unspecified; G47.30 Sleep apnea, unspecified; I10 Essential (primary) hypertension; E78.00 Pure hypercholesterolemia, unspecified; G43.909 Migraine, unspecified, not intractable, without status migrainosus; K21.9 Gastro-esophageal reflux disease without esophagitis; E03.9 Hypothyroidism, unspecified; F41.9 Anxiety disorder, unspecified; F32.9 Major depressive disorder, single episode, unspecified; F17.210 Nicotine dependence, cigarettes, uncomplicated; Z90.710 Acquired absence of both cervix and uterus; Z86.14 Personal history of Methicillin resistant Staphylococcus aureus infection; Z96.9 Presence of functional implant, unspecified; Z93.0 Tracheostomy status; Z98.890 Other specified postprocedural states; Z87.01 Personal history of pneumonia (recurrent); Z99.81 Dependence on supplemental oxygen; Z88.8 Allergy status to other drugs, medicaments and biological substances; Z79.51 Long term (current) use of inhaled steroids; Z79.52 Long term (current) use of systemic steroids; Z79.84 Long term (current) use of oral hypoglycemic drugs
CPT/HCPCS: 71046; 87804; 94640

== ENCOUNTER 2018-09-27 19:46 | Emergency (ER) | payer MEDICAID ==
[~2018-09-27] VITALS: Ht 175.3 cm; Wt 112.0 kg
[~2018-09-27 19:46] MED LIST changes: +AZIT250T PO; +D-ME473S38 PO
--- NOTE | 2018-09-27 19:58 | ED Lower Extremity ---
General Chief Complaint: Lower Extremity Stated Complaint: RIGHT KNEE PAIN Source: patient Exam Limitations: no limitations History of Present Illness Date Seen by Provider: September 27, 2018 Time Seen by Provider: 19:56 Initial Comments To ER with right knee pain. This began 2 days ago while she was at a social event, she tripped over an object in the ground landing on her right side. She has right lateral and posterior knee pain. She has been able to bear weight since then, however pain around the entire joint line has persisted since Friday night despite attempting a knee brace at home. Onset: other (48 hours) Severity: moderate Pain/Injury Location: right knee Method of Injury: fell Modifying Factors: Worse With Movement Allergies and Home Medications Allergies Coded Allergies: methocarbamol (Unverified Allergy, Unknown, 10/13/15) fentanyl (Verified Adverse Reaction, Unknown, 11/19/13) Home Medications Albuterol/Ipratropium 4 Gm Aero, 1 PUFF IH QID PRN for SHORTNESS OF BREATH, (Reported) Alprazolam 0.5 Mg Tablet, 0.5 MG PO BID PRN for ANXIETY, (Reported) Azithromycin 250 Mg Tablet, 250 MG PO UD TAKE 2 TABLETS TODAY, THEN TAKE 1 TABLET DAILY FOR 4 MORE DAYS Prescribed by: JONNY SÁNCHEZ on 07/13/18 1311 Brexpiprazole 2 Mg Tablet, 2 MG PO HS, (Reported) Budesonide 90 Mcg Aer.pow.ba, 90 MCG IH BID Prescribed by: VIDAL GALEANA on 07/14/17 2353 Buspirone HCl 5 Mg Tablet, 5 MG PO BID, (Reported) Ipratropium/Albuterol Sulfate 3 Ml Ampul.neb, 3 ML IH Q4H PRN for SHORTNESS OF BREATH Prescribed by: NANDO MANCILLA on 07/17/17 0902 Ipratropium/Albuterol Sulfate 3 Ml Ampul.neb, 3 ML IH Q4H PRN for SHORTNESS OF BREATH Prescribed by: JONNY SÁNCHEZ on 07/13/18 1311 Levothyroxine Sodium 150 Mcg Tablet, 150 MCG PO DAILY, (Reported) Lisinopril 2.5 Mg Tablet, 2.5 MG PO DAILY, (Reported) Lovastatin 20 Mg Tablet, 20 MG PO DAILY, (Reported) Meclizine HCl 12.5 Mg Tablet, 12.5 MG PO Q6H PRN for DIZZINESS Prescribed by: RICHAR FRENCH on 12/28/17201 Metformin HCl 500 Mg Tab.er.24h, 500 MG PO BID WITH MEALS, (Reported) Nabumetone 500 Mg Tablet, 500 MG PO BID WITH MEALS, (Reported) Ondansetron 4 Mg Tab.rapdis, 4 MG PO Q6H PRN for NAUSEA/VOMITING Prescribed by: RICHAR FRENCH on 12/28/17201 Pantoprazole Sodium 40 Mg Tablet.dr, 40 MG PO DAILY Prescribed by: HECTOR MONSIVAIS on 02/12/182221 Prednisone 20 Mg Tab, 40 MG PO DAILY Prescribed by: HECTOR MONSIVAIS on 02/12/182221 Prednisone 20 Mg Tab, 40 MG PO DAILY Prescribed by: JONNY SÁNCHEZ on 07/13/18 131 Promethazine/Dextromethorphan 473 Ml Syrup, 5 ML PO Q4H Prescribed by: JONNY SÁNCHEZ on 07/13/18 131 Tizanidine HCl 4 Mg Tablet, 8 TAB PO TID, (Reported) TAKES 2 (4MG) TABLETS Trazodone HCl 150 Mg Tablet, 150-300 MG PO HS, (Reported) Vortioxetine Hydrobromide 20 Mg Tablet, 20 MG PO HS, (Reported) Patient Home Medication List Home Medication List Reviewed: Yes Review of Systems Constitutional: see HPI EENTM: see HPI Respiratory: no symptoms reported Cardiovascular: no symptoms reported Genitourinary: no symptoms reported Musculoskeletal: see HPI Skin: no symptoms reported Psychiatric/Neurological: No Symptoms Reported Past Nodhxgp-Gxetpx-Cpkbtq Hx Patient Social History Drug of Choice: CANNIBUS Type Used: Cigarettes 2nd Hand Smoke Exposure: Yes Recent Foreign Travel: No Contact w/Someone Who Travel: No Recent Hopitalizations: No Immunizations Up To Date Tetanus Booster (TDap): Unknown Date of Influenza Vaccine: Feb 08, 2017 Seasonal Allergies Seasonal Allergies: No Past Medical History Surgeries: Yes (RIGHT LUNG BIOPSY) Gallbladder, Hysterectomy, Oophorectomy, Orthopedic, Tracheostomy Respiratory: Yes (surgical bx for pneumonia/on ventilator WITH TRACH 1996, WEARS OXYGEN AT 2 ) Asthma, Pneumonia, Chronic Bronchitis, Sleep Apnea, COPD Currently Using CPAP: No Currently Using BIPAP: No Cardiac: Yes High Cholesterol, Hypertension Neurological: Yes (lumbar neural foraminal stenosis) Headaches /Migraines 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 No Pertinent Family Hx Physical Exam Vital Signs Vital Signs - First Documented 09/27/18 19:52 Temp 98.1 Pulse 76 Resp 16 B/P (MAP) 108/73 (85) Capillary Refill : Height, Weight, BMI Height: 5'9.00" Weight: 247lbs. 0.0oz. 112.612427mh; 40.0 BMI Method:Stated General Appearance: WD/WN, no apparent distress Respiratory: no respiratory distress, no accessory muscle use Hips: bilateral hip non-tender, bilateral hip normal inspection, bilateral hip normal range of motion Legs: bilateral leg non-tender, bilateral leg normal inspection, bilateral leg normal range of motion Knees: right knee pain, right knee soft tissue tenderness (around the joint line. No palpable effusion. Og's test is negative. Posterior drawer test is negative. There is no gross knee instability. Lower extremity is warm with intact sensation.) Ankles: bilateral ankle non-tender, bilateral ankle normal inspection, bilateral ankle normal range of motion Feet: bilateral foot non-tender, bilateral foot normal inspection, bilateral foot normal range of motion Neurologic/Psychiatric: alert, normal mood/affect, oriented x 3 Skin: normal color, warm/dry Progress/Results/Core Measures Results/Orders My Orders Orders - HECTOR MONSIVAIS APRN Knee, Right, 3 Views (09/27/18 19:54) Ketorolac Injection (Toradol Injection) (09/27/18 20:00) Medications Given in ED Current Medications Medications Dose Ordered Sig/Bridgette Route Start Time Stop Time Status Last Admin Dose Admin Ketorolac Tromethamine 30 mg ONCE ONCE IM 09/27/18 20:00 09/27/18 20:01 DC 09/27/18 19:59 30 MG Vital Signs/I&O 09/27/18 19:52 Temp 98.1 Pulse 76 Resp 16 B/P (MAP) 108/73 (85) Departure Impression Primary Impression: Internal derangement of right knee Disposition: HOME, SELF-CARE Condition: Stable Departure-Patient Inst. Decision time for Depature: 19:59 Referrals: [facility]/DARRYN (PCP) Primary Care Physician MILAGROS DIAS APRN (Family) Primary Care Physician Patient Instructions: Internal Derangement of the Knee Add. Discharge Instructions: 1. Follow-up with your doctor next week 2. Return to ER for any concerns 3. All discharge instructions reviewed with patient and/or family. Voiced understanding. Scripts Naproxen (Naprosyn) 500 Mg Tablet 500 MG PO BID PRN for PAIN-MODERATE TO SEVERE, #30 TAB 0 Refills Prov: HECTOR MONSIVAIS APRN 09/27/18 HECTOR MONSIVAIS APRN September 27, 2018 19:58
[2018-09-27] MEDS ORDERED: KETOROLAC 30 MG/ML VIAL IM ONE (20:00)
[2018-09-27] MEDS ORDERED: NAPR-1071 PO (20:18)
--- NOTE | 2018-09-27 20:18 | Diagnostic Imaging Report ---
INDICATION: Pain. EXAMINATION: Three views of the right knee were obtained. FINDINGS: The alignment is normal. There is no fracture or dislocation. There are minimal degenerative changes. Soft tissues are unremarkable. IMPRESSION: Minimal degenerative changes, otherwise unremarkable. Dictated by: Dictated on workstation # [id number]
[2018-09-27 20:27] VITALS: BP 110/75
--- OUTSIDE RECORDS SUMMARY | 2018-09-27 20:54 | XMS REPORT | Clinical Summary ---
Author Author [facility] Organization [facility] Address Unknown Phone Unavailable Care Team Providers Care Assembler Brazer Name Role Phone Susy Butler ARABELLA PCP Source Comments Some departments are not documenting in the electronic medical record. If you d o not see the information that you expected, contact Release of Information in [facility] Information Management department at [phone] for further assistan ce in locating additional records.[facility] Allergies Not on File Medications Not [...] 12/09/2005 BREAST CANCER SCREENING 2015 INFLUENZA VACCINE 02/09/2019 Results Not on filefrom Last 3 Months Insurance Type Payer Benefit Subscriber ID Effective Phone Address Plan / Dates Group Medicaid [facility] MEDICAID [facility] xxxxxxxxxxx [id number] COMMUNITY resent PLAN [place] Advance Directives Patient has advance care planning documents on file. For more information, kun garza contact: [address] [address]
== END 2018-09-27 20:27 | disposition home or self-care (01) ==
LOC: EDUNIT# 19:46 → ER 19:48
DX: M23.91 Unspecified internal derangement of right knee (principal); J44.9 Chronic obstructive pulmonary disease, unspecified; E78.00 Pure hypercholesterolemia, unspecified; I10 Essential (primary) hypertension; G43.909 Migraine, unspecified, not intractable, without status migrainosus; E03.9 Hypothyroidism, unspecified; E11.9 Type 2 diabetes mellitus without complications; F41.9 Anxiety disorder, unspecified; F32.9 Major depressive disorder, single episode, unspecified; K21.9 Gastro-esophageal reflux disease without esophagitis; M48.061 Spinal stenosis, lumbar region without neurogenic claudication; Z87.01 Personal history of pneumonia (recurrent); Z88.8 Allergy status to other drugs, medicaments and biological substances; Z99.81 Dependence on supplemental oxygen; Z79.52 Long term (current) use of systemic steroids; Z79.84 Long term (current) use of oral hypoglycemic drugs; Z86.14 Personal history of Methicillin resistant Staphylococcus aureus infection; Z77.22 Contact with and (suspected) exposure to environmental tobacco smoke (acute) (chronic); Z90.710 Acquired absence of both cervix and uterus; Z93.0 Tracheostomy status; Z98.890 Other specified postprocedural states
CPT/HCPCS: 73562

== ENCOUNTER → 2018-11-10 | Emergency (ER) | payer MEDICAID ==
[~2018-11-10] VITALS: Ht 175.3 cm; Wt 112.0 kg
[~2018-11-10] MED LIST changes: +AMOX-358 PO; +NAPR-1071 PO
[2018-11-10 15:34] VITALS: BP 111/71
--- OUTSIDE RECORDS SUMMARY | 2018-11-10 15:35 | XMS REPORT | Clinical Summary ---
Author Author [facility] Organization [facility] Address Unknown Phone Unavailable Care Team Providers Care Fish Checker Name Role Phone Susy Butler SEAL EXTRUSION OPERATOR PCP Source Comments Some departments are not documenting in the electronic medical record. If you d o not see the information that you expected, contact Release of Information in [facility] Information Management department at [phone] for further assistan ce in locating additional records.[facility] Allergies Not on File Medications Not [...] Phone Address Plan / Dates Group Medicaid [facility] MEDICAID [place] [facility] xxxxxxxxxxx 2014-P COMM[place]ITY [place]AN [place] Advance Directives Patient Casing Grader Explanation Type Date Recorded Advance 12/02/2014 12:46 PM Directive/DPOA
--- OUTSIDE RECORDS SUMMARY | 2018-11-10 15:38 | XMS REPORT | Continuity of Care Document ---
Author Organization Unknown Address Unknown Allergies Active Description Code Type Severity Reaction Onset Reported/Identified Relationship to Patient Clinical Status Yes Tylenol Drug Allergy 09/02/2011 Yes Tylenol Drug Allergy N/A N/A 09/02/2011 Yes fentanyl 50 mcg/hr Patch 72 hr Drug Allergy N/A N/A 10/13/2012 Medications There is no data. Problems Date [...] 301.83 PD BORDERLINE 10/02/2011 LIZ JOAQUIN RUBEN DARBY 296.33 MO DEPRESSIVE RECURRENT SEVERE W/O PSYCHOTIC BEHAVIOR 10/02/2011 LIZ JOAQUIN RUBEN WILNER 301.83 PD BORDERLINE 10/02/2011 HEMA CUTLER MD 296.33 MO DEPRESSIVE RECURRENT SEVERE W/O PSYCHOTIC BEHAVIOR 10/02/2011 HEMA CUTLER MD 301.83 PD BORDERLINE 10/02/2011 CHRISTIANO CARRERA PSYD L 296.33 MO DEPRESSIVE RECURRENT SEVERE W/O PSYCHOTIC BEHAVIOR 10/02/2011 CHRISTIANO CARRERA PSYD L 301.83 PD BORDERLINE 10/02/2011 LIZ JOAQUIN RUBEN WILNER 296.33 MO DEPRESSIVE RECURRENT SEVERE W/O PSYCHOTIC BEHAVIOR 10/02/2011 LIZ JOAQUIN RUBEN WILNER 301.83 PD BORDERLINE 10/02/2011 MEGAN MENCHACA APRN T 296.33 MO DEPRESSIVE RECURRENT SEVERE W/O PSYCHOTIC BEHAVIOR 10/02/2011 NIKOLAI JOAQUIN MEGAN T 301.83 PD BORDERLINE 10/02/2011 CHRISTIANO CARRERA PSYD L 296.33 MO DEPRESSIVE RECURRENT SEVERE W/O PSYCHOTIC BEHAVIOR 10/02/2011 CHRISTIANO CARRERA PSYD L 301.83 PD BORDERLINE 10/02/2011 HEMA CUTLER MD 296.33 MO DEPRESSIVE RECURRENT SEVERE W/O PSYCHOTIC BEHAVIOR 10/02/2011 HEMA CUTLER MD 301.83 PD BORDERLINE 10/02/2011 LIZ JOAQUIN RUBEN WILNER 296.33 MO DEPRESSIVE RECURRENT SEVERE W/O PSYCHOTIC BEHAVIOR 10/02/2011 LIZ JOAQUIN RUBEN WILNER 301.83 PD BORDERLINE 10/02/2011 RICARDO ROGERS APRN 296.33 MO DEPRESSIVE RECURRENT SEVERE W/O PSYCHOTIC BEHAVIOR 10/02/2011 MADL CRIMINAL INTELLIGENCE SPECIALIST, RICARDO L 301.83 PD BORDERLINE 10/02/2011 MADL CRIMINAL INTELLIGENCE SPECIALIST, RICARDO L 296.33 MO DEPRESSIVE RECURRENT SEVERE W/O PSYCHOTIC BEHAVIOR 10/02/2011 MADL CRIMINAL INTELLIGENCE SPECIALIST, RICARDO L 301.83 PD BORDERLINE 10/02/2011 MADL CRIMINAL INTELLIGENCE SPECIALIST, RICARDO L 296.33 MO DEPRESSIVE RECURRENT SEVERE W/O PSYCHOTIC BEHAVIOR 10/02/2011 MADL CRIMINAL INTELLIGENCE SPECIALIST, RICARDO L 301.83 PD BORDERLINE 10/02/2011 MADL CRIMINAL INTELLIGENCE SPECIALIST, RICARDO L 296.33 MO DEPRESSIVE RECURRENT SEVERE W/O PSYCHOTIC BEHAVIOR 10/02/2011 MADL CRIMINAL INTELLIGENCE SPECIALIST, RICARDO L 301.83 PD BORDERLINE 10/02/2011 MADL CRIMINAL INTELLIGENCE SPECIALIST, RICARDO L 296.33 MO DEPRESSIVE RECURRENT SEVERE W/O PSYCHOTIC BEHAVIOR 10/02/2011 MADL CRIMINAL INTELLIGENCE SPECIALIST, RICARDO L 301.83 PD BORDERLINE 10/02/2011 MADL CRIMINAL INTELLIGENCE SPECIALIST, RICARDO L 296.33 MO DEPRESSIVE RECURRENT SEVERE W/O PSYCHOTIC BEHAVIOR 10/02/2011 MADL CRIMINAL INTELLIGENCE SPECIALIST, RICARDO L 301.83 PD BORDERLINE 10/02/2011 CHRISTIANO CARRERA PSYD L 296.33 MO DEPRESSIVE RECURRENT SEVERE W/O PSYCHOTIC BEHAVIOR 10/02/2011 CHRISTIANO CARRERA PSYD L 301.83 PD BORDERLINE 10/02/2011 MADL CRIMINAL INTELLIGENCE SPECIALIST, RICARDO L 296.33 MO DEPRESSIVE RECURRENT SEVERE W/O PSYCHOTIC BEHAVIOR 10/02/2011 MADL CRIMINAL INTELLIGENCE SPECIALIST, RICARDO L 301.83 PD BORDERLINE 10/02/2011 MADL CRIMINAL INTELLIGENCE SPECIALIST, RICARDO L 296.33 MO DEPRESSIVE RECURRENT SEVERE W/O PSYCHOTIC BEHAVIOR 10/02/2011 MADL CRIMINAL INTELLIGENCE SPECIALIST, RICARDO L 301.83 PD BORDERLINE 10/02/2011 PORTER DO, BON K 296.33 MO DEPRESSIVE RECURRENT SEVERE W/O PSYCHOTIC BEHAVIOR 10/02/2011 PORTER DO, BON K 301.83 PD BORDERLINE 10/02/2011 CHRISTIANO CARRERA PSYD ANN L 296.33 MO DEPRESSIVE RECURRENT SEVERE W/O PSYCHOTIC BEHAVIOR 10/02/2011 CHRISTIANO CARRERA PSYD ANN L 301.83 PD BORDERLINE 10/02/2011 MADL CRIMINAL INTELLIGENCE SPECIALIST, RICARDO L 296.33 MO DEPRESSIVE RECURRENT SEVERE W/O PSYCHOTIC BEHAVIOR 10/02/2011 MADL CRIMINAL INTELLIGENCE SPECIALIST, RICARDO L 301.83 PD BORDERLINE 10/02/2011 MADL CRIMINAL INTELLIGENCE SPECIALIST, RICARDO L 296.33 MO DEPRESSIVE RECURRENT SEVERE W/O PSYCHOTIC BEHAVIOR 10/02/2011 MADL CRIMINAL INTELLIGENCE SPECIALIST, RICARDO L 301.83 PD BORDERLINE 10/02/2011 MADL CRIMINAL INTELLIGENCE SPECIALIST, RICARDO L 296.33 MO DEPRESSIVE RECURRENT SEVERE W/O PSYCHOTIC BEHAVIOR 10/02/2011 MADL CRIMINAL INTELLIGENCE SPECIALIST, RICARDO L 301.83 PD BORDERLINE 10/02/2011 CHRISTIANO CARRERA PSYD ANN L 296.33 MO DEPRESSIVE RECURRENT SEVERE W/O PSYCHOTIC BEHAVIOR 10/02/2011 CHRISTIANO CARRERA PSYD ANN L 301.83 PD BORDERLINE 10/02/2011 MADL CRIMINAL INTELLIGENCE SPECIALIST, RICARDO L 296.33 MO DEPRESSIVE RECURRENT SEVERE W/O PSYCHOTIC BEHAVIOR 10/02/2011 MADL CRIMINAL INTELLIGENCE SPECIALIST, RICARDO L 301.83 PD BORDERLINE 10/02/2011 MADL CRIMINAL INTELLIGENCE SPECIALIST, RICARDO L 296.33 MO DEPRESSIVE RECURRENT SEVERE W/O PSYCHOTIC BEHAVIOR 10/02/2011 MADL CRIMINAL INTELLIGENCE SPECIALIST, RICARDO L 301.83 PD BORDERLINE 10/02/2011 MADL CRIMINAL INTELLIGENCE SPECIALIST, RICARDO L 296.33 MO DEPRESSIVE RECURRENT SEVERE W/O PSYCHOTIC BEHAVIOR 10/02/2011 MADL CRIMINAL INTELLIGENCE SPECIALIST, RICARDO L 301.83 PD BORDERLINE 10/02/2011 PORTER DO, BON K 296.33 MO DEPRESSIVE RECURRENT SEVERE W/O PSYCHOTIC BEHAVIOR 10/02/2011 PORTER DO, BON K 301.83 PD BORDERLINE 10/02/2011 MADL CRIMINAL INTELLIGENCE SPECIALIST, RICARDO L 296.33 MO DEPRESSIVE RECURRENT SEVERE W/O PSYCHOTIC BEHAVIOR 10/02/2011 MADL CRIMINAL INTELLIGENCE SPECIALIST, RICARDO L 301.83 PD BORDERLINE 10/02/2011 CHRISTIANO CARRERA PSYD ANN L 296.33 MO DEPRESSIVE RECURRENT SEVERE W/O PSYCHOTIC BEHAVIOR 10/02/2011 CHRISTIANO CARRERA PSYD ANN L 301.83 PD BORDERLINE 10/02/2011 CHRISTIANO CARRERA PSYD ANN L 296.33 MO DEPRESSIVE RECURRENT SEVERE W/O PSYCHOTIC BEHAVIOR 10/02/2011 CHRISTIANO CARRERA PSYD ANN L 301.83 PD BORDERLINE 11/14/2011 CHRISTIANO CARRERA PSYD ANN L 296.32 MO DEPRESSIVE RECURRENT MODERATE 11/14/2011 [...] L 301.9 PD PERS DIS NOS 11/14/2011 RUBEN HILL APRN 296.32 MAJOR DEPRESSION RECURRENT MODERATE 11/14/2011 RUBEN HILL APRN 301.9 PD PERS DIS NOS 11/14/2011 MEGAN MENCHACA APRN T 296.32 MAJOR DEPRESSION RECURRENT MODERATE 11/14/2011 MEGAN MENCHACA APRN T 301.9 PD PERS DIS NOS 11/14/2011 CHRISTIANO CARRERA PSYD L 296.32 MAJOR DEPRESSION RECURRENT MODERATE 11/14/2011 CHRISTIANO CARRERA PSYD L 301.9 PD PERS DIS NOS 11/14/2011 HEMA CUTLER MD 296.32 MAJOR DEPRESSION RECURRENT MODERATE 11/14/2011 HEMA CUTLER MD 301.9 PD PERS DIS NOS 11/14/2011 RUBEN HILL APRN 296.32 MAJOR DEPRESSION RECURRENT MODERATE 11/14/2011 RUBEN HILL APRN 301.9 PD PERS DIS NOS 11/14/2011 KEN CRIMINAL INTELLIGENCE SPECIALIST, RICARDO L 296.32 MAJOR DEPRESSION RECURRENT MODERATE 11/14/2011 MADL CRIMINAL INTELLIGENCE SPECIALIST, RICARDO L 301.9 PD PERS DIS NOS 11/14/2011 MADL CRIMINAL INTELLIGENCE SPECIALIST, RICARDO L 296.32 MAJOR DEPRESSION RECURRENT MODERATE 11/14/2011 MADL CRIMINAL INTELLIGENCE SPECIALIST, RICARDO L 301.9 PD PERS DIS NOS 11/14/2011 MADL CRIMINAL INTELLIGENCE SPECIALIST, RICARDO L 296.32 MAJOR DEPRESSION RECURRENT MODERATE 11/14/2011 MADL CRIMINAL INTELLIGENCE SPECIALIST, RICARDO L 301.9 PD PERS DIS NOS 11/14/2011 MADL CRIMINAL INTELLIGENCE SPECIALIST, RICARDO L 296.32 MAJOR DEPRESSION RECURRENT MODERATE 11/14/2011 MADL CRIMINAL INTELLIGENCE SPECIALIST, RICARDO L 301.9 PD PERS DIS NOS 11/14/2011 MADL CRIMINAL INTELLIGENCE SPECIALIST, RICARDO L 296.32 MAJOR DEPRESSION RECURRENT MODERATE 11/14/2011 MADL CRIMINAL INTELLIGENCE SPECIALIST, RICARDO L 301.9 PD PERS DIS NOS 11/14/2011 MADL CRIMINAL INTELLIGENCE SPECIALIST, RICARDO L 296.32 MAJOR DEPRESSION RECURRENT MODERATE 11/14/2011 MADL CRIMINAL INTELLIGENCE SPECIALIST, RICARDO L 301.9 PD PERS DIS NOS 11/14/2011 CHRISTIANO CARRERA PSYD L 296.32 MAJOR DEPRESSION RECURRENT MODERATE 11/14/2011 CHRISTIANO CARRERA PSYD L 301.9 PD PERS DIS NOS 11/14/2011 MADL CRIMINAL INTELLIGENCE SPECIALIST, RICARDO L 296.32 MAJOR DEPRESSION RECURRENT MODERATE 11/14/2011 MADL CRIMINAL INTELLIGENCE SPECIALIST, RICARDO L 301.9 PD PERS DIS NOS 11/14/2011 MADL CRIMINAL INTELLIGENCE SPECIALIST, RICARDO L 296.32 MAJOR DEPRESSION RECURRENT MODERATE 11/14/2011 MADL CRIMINAL INTELLIGENCE SPECIALIST, RICARDO L 301.9 PD PERS DIS NOS 11/14/2011 PORTER DO, BON K 296.32 MAJOR DEPRESSION RECURRENT MODERATE 11/14/2011 PORTER DO, BON K 301.9 PD PERS DIS NOS 11/14/2011 CHRISTIANO CARRERA PSYD L 296.32 MAJOR DEPRESSION RECURRENT MODERATE 11/14/2011 CHRISTIANO CARRERA PSYD L 301.9 PD PERS DIS NOS 11/14/2011 MADL CRIMINAL INTELLIGENCE SPECIALIST, RICARDO L 296.32 MAJOR DEPRESSION RECURRENT MODERATE 11/14/2011 MADL CRIMINAL INTELLIGENCE SPECIALIST, RICARDO L 301.9 PD PERS DIS NOS 11/14/2011 MADL CRIMINAL INTELLIGENCE SPECIALIST, RICARDO L 296.32 MAJOR DEPRESSION RECURRENT MODERATE 11/14/2011 MADL CRIMINAL INTELLIGENCE SPECIALIST, RICARDO L 301.9 PD PERS DIS NOS 11/14/2011 MADL CRIMINAL INTELLIGENCE SPECIALIST, RICARDO L 296.32 MAJOR DEPRESSION RECURRENT MODERATE 11/14/2011 MADL CRIMINAL INTELLIGENCE SPECIALIST, RICARDO L 301.9 PD PERS DIS NOS 11/14/2011 CHRISTIANO CARRERA PSYD L 296.32 MAJOR DEPRESSION RECURRENT MODERATE 11/14/2011 CHRISTIANO CARRERA PSYD L 301.9 PD PERS DIS NOS 11/14/2011 MADL CRIMINAL INTELLIGENCE SPECIALIST, RICARDO L 296.32 MAJOR DEPRESSION RECURRENT MODERATE 11/14/2011 MADL CRIMINAL INTELLIGENCE SPECIALIST, RICARDO L 301.9 PD PERS DIS NOS 11/14/2011 MADL CRIMINAL INTELLIGENCE SPECIALIST, RICARDO L 296.32 MAJOR DEPRESSION RECURRENT MODERATE 11/14/2011 MADL CRIMINAL INTELLIGENCE SPECIALIST, RICARDO L 301.9 PD PERS DIS NOS 11/14/2011 MADL CRIMINAL INTELLIGENCE SPECIALIST, RICARDO L 296.32 MAJOR DEPRESSION RECURRENT MODERATE 11/14/2011 MADL CRIMINAL INTELLIGENCE SPECIALIST, RICARDO L 301.9 PD PERS DIS NOS 11/14/2011 PORTER DO, BON K 296.32 MAJOR DEPRESSION RECURRENT MODERATE 11/14/2011 BON PORTER DO K 301.9 PD PERS DIS NOS 11/14/2011 MADL CRIMINAL INTELLIGENCE SPECIALIST, RICARDO L 296.32 MAJOR DEPRESSION RECURRENT MODERATE 11/14/2011 MADL CRIMINAL INTELLIGENCE SPECIALIST, RICARDO L 301.9 PD PERS DIS NOS 11/14/2011 CHRISTIANO CARRERA PSYD ANN L 296.32 MAJOR DEPRESSION RECURRENT MODERATE 11/14/2011 CHRISTIANO CARRERA PSYD ANN L 301.9 PD PERS DIS NOS 11/14/2011 CHRISTIANO CARRERA PSYD ANN L 296.32 MO DEPRESSIVE RECURRENT MODERATE 11/14/2011 CHRISTIANO CARRERA PSYD ANN L 301.9 PD PERS DIS NOS 11/21/2011 CHRISTIANO CARRERA PSYD L 300.01 AN PANIC DIS W/O AGORA 11/21/2011 300.01 AN PANIC DIS W/O AGORA 11/21/2011 GERMAN RUSHINGBON 300.01 AN PANIC DIS W/O AGORA 11/21/2011 GERMAN RUSHINGBON 300.01 AN PANIC DIS W/O AGORA 11/21/2011 [...] 300.01 AN PANIC DIS W/O AGORA 11/21/2011 RUBEN HILL APRN 300.01 AN PANIC DIS W/O AGORA 11/21/2011 HEMA CUTLER MD 300.01 AN PANIC DIS W/O AGORA 11/21/2011 CHRISTIANO CARRERA PSYD L 300.01 AN PANIC DIS W/O AGORA 11/21/2011 RUBEN HILL APRN 300.01 AN PANIC DIS W/O AGORA 11/21/2011 MEGAN MENCHACA APRN T 300.01 AN PANIC DIS W/O AGORA 11/21/2011 CHRISTIANO CARRERA PSYD 300.01 AN PANIC DIS W/O AGORA 11/21/2011 HEMA CUTLER MD 300.01 AN PANIC DIS W/O AGORA 11/21/2011 RUBEN HILL APRN 300.01 AN PANIC DIS W/O AGORA 11/21/2011 MADL CRIMINAL INTELLIGENCE SPECIALIST, RICARDO L 300.01 AN PANIC DIS W/O AGORA 11/21/2011 MADL CRIMINAL INTELLIGENCE SPECIALIST, RICARDO L 300.01 AN PANIC DIS W/O AGORA 11/21/2011 MADL CRIMINAL INTELLIGENCE SPECIALIST, RICARDO L 300.01 AN PANIC DIS W/O AGORA 11/21/2011 MADL CRIMINAL INTELLIGENCE SPECIALIST, RICARDO L 300.01 AN PANIC DIS W/O AGORA 11/21/2011 MADL CRIMINAL INTELLIGENCE SPECIALIST, RICARDO L 300.01 AN PANIC DIS W/O AGORA 11/21/2011 MADL CRIMINAL INTELLIGENCE SPECIALIST, RICARDO L 300.01 AN PANIC DIS W/O AGORA 11/21/2011 CHRISTIANO CARRERA PSYD L 300.01 AN PANIC DIS W/O AGORA 11/21/2011 MADL CRIMINAL INTELLIGENCE SPECIALIST, RICARDO L 300.01 AN PANIC DIS W/O AGORA 11/21/2011 MADL CRIMINAL INTELLIGENCE SPECIALIST, RICARDO L 300.01 AN PANIC DIS W/O AGORA 11/21/2011 BON PORTER DO 300.01 AN PANIC DIS W/O AGORA 11/21/2011 CHRISTIANO CARRERA PSYD L 300.01 AN PANIC DIS W/O AGORA 11/21/2011 MADL CRIMINAL INTELLIGENCE SPECIALIST, RICARDO L 300.01 AN PANIC DIS W/O AGORA 11/21/2011 MADL CRIMINAL INTELLIGENCE SPECIALIST, RICARDO L 300.01 AN PANIC DIS W/O AGORA 11/21/2011 MADL CRIMINAL INTELLIGENCE SPECIALIST, RICARDO L 300.01 AN PANIC DIS W/O AGORA 11/21/2011 CHRISTIANO CARRERA PSYD L 300.01 AN PANIC DIS W/O AGORA 11/21/2011 MADL CRIMINAL INTELLIGENCE SPECIALIST, RICARDO L 300.01 AN PANIC DIS W/O AGORA 11/21/2011 MADL CRIMINAL INTELLIGENCE SPECIALIST, RICARDO L 300.01 AN PANIC DIS W/O AGORA 11/21/2011 MADL CRIMINAL INTELLIGENCE SPECIALIST, RICARDO L 300.01 AN PANIC DIS W/O AGORA 11/21/2011 PORTER DOBON K 300.01 AN PANIC DIS W/O AGORA 11/21/2011 KEN CRIMINAL INTELLIGENCE SPECIALIST, RICARDO L 300.01 AN PANIC DIS W/O AGORA 11/21/2011 CHRISTIANO CARRERA PSYD L 300.01 AN PANIC DIS W/O AGORA 11/21/2011 CHRISTIANO CARRERA PSYD 300.01 AN PANIC DIS W/O AGORA 02/10/2012 CHRISTIANO CARRERA PSYD 300.02 AN GEN ANXIETY 02/10/2012 300.02 AN GEN ANXIETY 02/10/2012 PORTER BON K 300.02 AN GEN ANXIETY 02/10/2012 GERMAN RUSHING BON K 300.02 AN GEN ANXIETY 02/10/2012 CHRISTIANO CARRERA [...] CARRERA PSYD 300.02 AN GEN ANXIETY 02/10/2012 RUBEN HILL APRN 300.02 AN GEN ANXIETY 02/10/2012 MEGAN MENCHACA APRN 300.02 AN GEN ANXIETY 02/10/2012 CHRISTIANO CARRERA PSYD 300.02 AN GEN ANXIETY 02/10/2012 HEMA CUTLER MD 300.02 AN GEN ANXIETY 02/10/2012 RUBEN HILL APRN 300.02 AN GEN ANXIETY 02/10/2012 MADL CRIMINAL INTELLIGENCE SPECIALIST, RICARDO L 300.02 AN GEN ANXIETY 02/10/2012 MADL CRIMINAL INTELLIGENCE SPECIALIST, RICARDO L 300.02 AN GEN ANXIETY 02/10/2012 MADL CRIMINAL INTELLIGENCE SPECIALIST, RICARDO L 300.02 AN GEN ANXIETY 02/10/2012 MADL CRIMINAL INTELLIGENCE SPECIALIST, RICARDO L 300.02 AN GEN ANXIETY 02/10/2012 MADL CRIMINAL INTELLIGENCE SPECIALIST, RICARDO L 300.02 AN GEN ANXIETY 02/10/2012 MADL CRIMINAL INTELLIGENCE SPECIALIST, RICARDO L 300.02 AN GEN ANXIETY 02/10/2012 CHRISTIANO CARRERA PSYD L 300.02 AN GEN ANXIETY 02/10/2012 MADL CRIMINAL INTELLIGENCE SPECIALIST, RICARDO L 300.02 AN GEN ANXIETY 02/10/2012 MADL CRIMINAL INTELLIGENCE SPECIALIST, RICARDO L 300.02 AN GEN ANXIETY 02/10/2012 PORTER DOSHANITAA K 300.02 AN GEN ANXIETY 02/10/2012 CHRISTIANO CARRERA PSYD L 300.02 AN GEN ANXIETY 02/10/2012 MADL CRIMINAL INTELLIGENCE SPECIALIST, RICARDO L 300.02 AN GEN ANXIETY 02/10/2012 MADL CRIMINAL INTELLIGENCE SPECIALIST, RICARDO L 300.02 AN GEN ANXIETY 02/10/2012 MADL CRIMINAL INTELLIGENCE SPECIALIST, RIACRDO L 300.02 AN GEN ANXIETY 02/10/2012 CHRISTIANO CARRERA PSYD L 300.02 AN GEN ANXIETY 02/10/2012 MADL CRIMINAL INTELLIGENCE SPECIALIST, RICARDO L 300.02 AN GEN ANXIETY 02/10/2012 MADL CRIMINAL INTELLIGENCE SPECIALIST, RICARDO L 300.02 AN GEN ANXIETY 02/10/2012 MADL CRIMINAL INTELLIGENCE SPECIALIST, RICARDO L 300.02 AN GEN ANXIETY 02/10/2012 PORTER DO, BON K 300.02 AN GEN ANXIETY 02/10/2012 MADL CRIMINAL INTELLIGENCE SPECIALIST, RICARDO L 300.02 AN GEN ANXIETY 02/10/2012 CHRISTIANO CARRERA PSYD L 300.02 AN GEN ANXIETY 02/10/2012 CHRISTIANO CARRERA PSYD ANN L 300.02 AN GEN ANXIETY 03/05/2012 CHRISTIANO [...] AND ABSCESS OF LEG EXCEPT FOOT 03/05/2012 RICARDO ROGERS APRN L 682.6 CELLULITIS AND ABSCESS OF LEG EXCEPT FOOT 03/05/2012 ANDREW ROGERS APRNA L 682.6 CELLULITIS AND ABSCESS OF LEG EXCEPT FOOT 03/05/2012 MADL CRIMINAL INTELLIGENCE SPECIALIST, RICARDO L 682.6 CELLULITIS AND ABSCESS OF LEG EXCEPT FOOT 03/05/2012 MADL CRIMINAL INTELLIGENCE SPECIALIST, RICARDO L 682.6 CELLULITIS AND ABSCESS OF LEG EXCEPT FOOT 03/05/2012 MADL CRIMINAL INTELLIGENCE SPECIALIST, RICARDO L 682.6 CELLULITIS AND ABSCESS OF LEG EXCEPT FOOT 03/05/2012 MADL CRIMINAL INTELLIGENCE SPECIALIST, RICARDO L 682.6 CELLULITIS AND ABSCESS OF LEG EXCEPT FOOT 03/05/2012 CHRISTIANO CARRERA PSYD ANN L 682.6 CELLULITIS AND ABSCESS OF LEG EXCEPT FOOT 03/05/2012 MADL CRIMINAL INTELLIGENCE SPECIALIST, RICARDO L 682.6 CELLULITIS AND ABSCESS OF LEG EXCEPT FOOT 03/05/2012 MADL CRIMINAL INTELLIGENCE SPECIALIST, RICARDO L 682.6 CELLULITIS AND ABSCESS OF LEG EXCEPT FOOT 03/05/2012 PORTER DO, BON K 682.6 CELLULITIS AND ABSCESS OF LEG EXCEPT FOOT 03/05/2012 CHRISTIANO CARRERA PSYD ANN L 682.6 CELLULITIS AND ABSCESS OF LEG EXCEPT FOOT 03/05/2012 MADL CRIMINAL INTELLIGENCE SPECIALIST, RICARDO L 682.6 CELLULITIS AND ABSCESS OF LEG EXCEPT FOOT 03/05/2012 MADL CRIMINAL INTELLIGENCE SPECIALIST, RICARDO L 682.6 CELLULITIS AND ABSCESS OF LEG EXCEPT FOOT 03/05/2012 MADL CRIMINAL INTELLIGENCE SPECIALIST, RICARDO L 682.6 CELLULITIS AND ABSCESS OF LEG EXCEPT FOOT 03/05/2012 CHRISTIANO CARRERA PSYD ANN L 682.6 CELLULITIS AND ABSCESS OF LEG EXCEPT FOOT 03/05/2012 MADL CRIMINAL INTELLIGENCE SPECIALIST, RICARDO L 682.6 CELLULITIS AND ABSCESS OF LEG EXCEPT FOOT 03/05/2012 MADL CRIMINAL INTELLIGENCE SPECIALIST, RICARDO L 682.6 CELLULITIS AND ABSCESS OF LEG EXCEPT FOOT 03/05/2012 MADL CRIMINAL INTELLIGENCE SPECIALIST, RICARDO L 682.6 CELLULITIS AND ABSCESS OF LEG EXCEPT FOOT 03/05/2012 PORTER DO, BON K 682.6 CELLULITIS AND ABSCESS OF LEG EXCEPT FOOT 03/05/2012 MADL CRIMINAL INTELLIGENCE SPECIALIST, RICARDO L 682.6 CELLULITIS AND ABSCESS OF LEG EXCEPT FOOT 03/05/2012 CHRISTIANO CARRERA PSYD ANN L 682.6 CELLULITIS AND ABSCESS OF LEG EXCEPT FOOT 03/05/2012 CHRISTIANO CARRERA PSYD L 682.6 CELLULITIS AND ABSCESS OF LEG EXCEPT FOOT 03/24/2012 CHRISTIANO CARRERA PSYD L 244.9 HYPOTHYROIDISM 03/24/2012 CHRISTIANO CARRERA PSYD ANN L 268.9 VITAMIN D DEFICIENCY 03/24/2012 CHRISTIANO CARRERA PSYD ANN L 716.90 ARTHRITIS/ ARTHROPATHY, UNSPECIFIED 03/24/2012 244.9 [...] DEFICIENCY 03/24/2012 716.90 ARTHRITIS/ ARTHROPATHY, UNSPECIFIED 03/24/2012 HILL APRN, RUBEN DARBY 244.9 HYPOTHYROIDISM 03/24/2012 HILLERIKA JOAQUIN RUBEN DARBY 268.9 VITAMIN D DEFICIENCY 03/24/2012 LIZ JOAQUIN RUBEN DARBY 716.90 ARTHRITIS/ ARTHROPATHY, UNSPECIFIED 03/24/2012 HEMA CUTLER MD 244.9 HYPOTHYROIDISM 03/24/2012 HEMA CUTLER MD 268.9 VITAMIN D DEFICIENCY 03/24/2012 HEMA CUTLER MD 716.90 ARTHRITIS/ ARTHROPATHY, UNSPECIFIED 03/24/2012 CHRISTIANO CARRERA PSYD ANN L 244.9 HYPOTHYROIDISM 03/24/2012 CHRISTIANO CARRERA PSYD ANN L 268.9 VITAMIN D DEFICIENCY 03/24/2012 CHRISTIANO CARRERA PSYD ANN L 716.90 ARTHRITIS/ ARTHROPATHY, UNSPECIFIED 03/24/2012 HILL JEMAL RUBEN DARBY 244.9 HYPOTHYROIDISM 03/24/2012 HILL JEMAL RUBEN DARBY 268.9 VITAMIN D DEFICIENCY 03/24/2012 LIZ JOAQUIN RUBEN DARBY 716.90 ARTHRITIS/ ARTHROPATHY, UNSPECIFIED 03/24/2012 MEGAN MENCHACA APRN T 244.9 HYPOTHYROIDISM 03/24/2012 MEGAN MENCHACA APRN T 268.9 VITAMIN D DEFICIENCY 03/24/2012 MEGAN MENCHACA APRN T 716.90 ARTHRITIS/ ARTHROPATHY, UNSPECIFIED 03/24/2012 CHRISTIANO CARRERA PSYD ANN L 244.9 HYPOTHYROIDISM 03/24/2012 CHRISTIANO CARRERA PSYD ANN L 268.9 VITAMIN D DEFICIENCY 03/24/2012 CHRISTIANO CARRERA PSYD ANN L 716.90 ARTHRITIS/ ARTHROPATHY, UNSPECIFIED 03/24/2012 HEMA CUTLER MD 244.9 HYPOTHYROIDISM 03/24/2012 HEMA CUTLER MD 268.9 VITAMIN D DEFICIENCY 03/24/2012 HEMA CUTLER MD 716.90 ARTHRITIS/ ARTHROPATHY, UNSPECIFIED 03/24/2012 HILL CRIMINAL INTELLIGENCE SPECIALIST, RUBEN DARBY 244.9 HYPOTHYROIDISM 03/24/2012 HILL CRIMINAL INTELLIGENCE SPECIALIST, RUBEN DARBY 268.9 VITAMIN D DEFICIENCY 03/24/2012 HILL CRIMINAL INTELLIGENCE SPECIALIST, RUBEN DARBY 716.90 ARTHRITIS/ ARTHROPATHY, UNSPECIFIED 03/24/2012 MADL CRIMINAL INTELLIGENCE SPECIALIST, RICARDO L 244.9 HYPOTHYROIDISM 03/24/2012 MADL CRIMINAL INTELLIGENCE SPECIALIST, RICARDO L 268.9 VITAMIN D DEFICIENCY 03/24/2012 MADL CRIMINAL INTELLIGENCE SPECIALIST, RICARDO L 716.90 ARTHRITIS/ ARTHROPATHY, UNSPECIFIED 03/24/2012 MADL CRIMINAL INTELLIGENCE SPECIALIST, RICARDO L 244.9 HYPOTHYROIDISM 03/24/2012 MADL CRIMINAL INTELL[employer] SPECIALIST, RICARDO L 268.9 VITAMIN D DEFICIENCY 03/24/2012 M[employer] CR[employer] INTELLIGENCE SPECIALIST, RICARDO L 716.90 ARTHRITIS/ ARTHROPATHY, UNSPECIFIED 03/24/2012 [employer] CR[employer] INTELL[employer] SPECIALIST, RICARDO L 244.9 HYPOTHYROIDISM 03/24/2012 M[employer] CR[employer] INTELLIGENCE SPECIALIST, RICARDO L 268.9 VITAMIN D DEFICIENCY 03/24/2012 M[employer] CR[employer] INTELLIGENCE SPECIALIST, RICARDO L 716.90 ARTHRITIS/ ARTHROPATHY, UNSPECIFIED 03/24/2012 M[employer] CR[employer] INTELLIGENCE SPECIALIST, RICARDO L 244.9 HYPOTHYROIDISM 03/24/2012 M[employer] CR[employer] INTELLIGENCE SPECIALIST, RICARDO L 268.9 VITAMIN D DEFICIENCY 03/24/2012 M[employer] CR[employer] INTELLIGENCE SPECIALIST, RICARDO L 716.90 ARTHRITIS/ ARTHROPATHY, UNSPECIFIED 03/24/2012 M[employer] CR[employer] INTELLIGENCE SPECIALIST, RICARDO L 244.9 HYPOTHYROIDISM 03/24/2012 M[employer] CR[employer] INTELLIGENCE SPECIALIST, RICARDO L 268.9 VITAMIN D DEFICIENCY 03/24/2012 M[employer] CR[employer] INTELLIGENCE SPECIALIST, RICARDO L 716.90 ARTHRITIS/ ARTHROPATHY, UNSPECIFIED 03/24/2012 M[employer] CR[employer] INTELLIGENCE SPECIALIST, RICARDO L 244.9 HYPOTHYROIDISM 03/24/2012 M[employer] CR[employer] INTELLIGENCE SPECIALIST, RICARDO L 268.9 VITAMIN D DEFICIENCY 03/24/2012 M[employer] CR[employer] INTELLIGENCE SPECIALIST, RICARDO L 716.90 ARTHRITIS/ ARTHROPATHY, UNSPECIFIED 03/24/2012 CHRISTIANO CARRERA PSYD ANN L 244.9 HYPOTHYROIDISM 03/24/2012 CHRISTIANO CARRERA PSYD ANN L 268.9 VITAMIN D DEFICIENCY 03/24/2012 CHRISTIANO CARRERA PSYD ANN L 716.90 ARTHRITIS/ ARTHROPATHY, UNSPECIFIED 03/24/2012 M[employer] INTELL[employer] SPECIALIST, RICARDO L 244.9 HYPOTHYROIDISM 03/24/2012 M[employer] INTELLIGENCE SPECIALIST, RICARDO L 268.9 VITAMIN D DEFICIENCY 03/24/2012 M[employer] CR[employer] INTELLIGENCE SPECIALIST, RICARDO L 716.90 ARTHRITIS/ ARTHROPATHY, UNSPECIFIED 03/24/2012 M[employer] INTELLIGENCE SPECIALIST, RICARDO L 244.9 HYPOTHYROIDISM 03/24/2012 M[employer] CR[employer] INTELLIGENCE SPECIALIST, RICARDO L 268.9 VITAMIN D DEFICIENCY 03/24/2012 M[employer] CR[employer] INTELLIGENCE SPECIALIST, RICARDO L 716.90 ARTHRITIS/ ARTHROPATHY, UNSPECIFIED 03/24/2012 PORTER DO, BON K 244.9 HYPOTHYROIDISM 03/24/2012 PORTER DO, BON K 268.9 VITAMIN D DEFICIENCY 03/24/2012 PORTER DO, BON K 716.90 ARTHRITIS/ ARTHROPATHY, UNSPECIFIED 03/24/2012 CHRISTIANO CARRERA PSYD ANN L 244.9 HYPOTHYROIDISM 03/24/2012 CHRISTIANO CARRERA PSYD ANN L 268.9 VITAMIN D DEFICIENCY 03/24/2012 CHRISTIANO CARRERA PSYD ANN L 716.90 ARTHRITIS/ ARTHROPATHY, UNSPECIFIED 03/24/2012 M[employer] INTELL[employer] SPECIALIST, RICARDO L 244.9 HYPOTHYROIDISM 03/24/2012 M[employer] CR[employer] INTELLIGENCE SPECIALIST, RICARDO L 268.9 VITAMIN D DEFICIENCY 03/24/2012 M[employer] CR[employer] INTELLIGENCE SPECIALIST, RICARDO L 716.90 ARTHRITIS/ ARTHROPATHY, UNSPECIFIED 03/24/2012 M[employer] CR[employer] INTELLIGENCE SPECIALIST, RICARDO L 244.9 HYPOTHYROIDISM 03/24/2012 M[employer] CR[employer] INTELLIGENCE SPECIALIST, RICARDO L 268.9 VITAMIN D DEFICIENCY 03/24/2012 M[employer] CR[employer] INTELLIGENCE SPECIALIST, RICARDO L 716.90 ARTHRITIS/ ARTHROPATHY, UNSPECIFIED 03/24/2012 M[employer] CR[employer] INTELLIGENCE SPECIALIST, RICARDO L 244.9 HYPOTHYROIDISM 03/24/2012 M[employer] CR[employer] INTELLIGENCE SPECIALIST, RICARDO L 268.9 VITAMIN D DEFICIENCY 03/24/2012 MAD[employer] CR[employer] INTELLIGENCE SPECIALIST, RICARDO L 716.90 ARTHRITIS/ ARTHROPATHY, UNSPECIFIED 03/24/2012 CHRISTIANO CARRERA PSYD ANN L 244.9 HYPOTHYROIDISM 03/24/2012 CHRISTIANO CARRERA PSYD ANN L 268.9 VITAMIN D DEFICIENCY 03/24/2012 CHRISTIANO CARRERA PSYD ANN L 716.90 ARTHRITIS/ ARTHROPATHY, UNSPECIFIED 03/24/2012 M[employer] CR[employer] INTELLIGENCE SPECIALIST, RICARDO L 244.9 HYPOTHYROIDISM 03/24/2012 M[employer] CR[employer] INTELLIGENCE SPECIALIST, RICARDO L 268.9 VITAMIN D DEFICIENCY 03/24/2012 M[employer] CR[employer] INTELLIGENCE SPECIALIST, RICARDO L 716.90 ARTHRITIS/ ARTHROPATHY, UNSPECIFIED 03/24/2012 M[employer] CR[employer] INTELLIGENCE SPECIALIST, RICARDO L 244.9 HYPOTHYROIDISM 03/24/2012 M[employer] CR[employer] INTELLIGENCE SPECIALIST, RICARDO L 268.9 VITAMIN D DEFICIENCY 03/24/2012 M[employer] CR[employer] INTELLIGENCE SPECIALIST, RICARDO L 716.90 ARTHRITIS/ ARTHROPATHY, UNSPECIFIED 03/24/2012 M[employer] CR[employer] INTELLIGENCE SPECIALIST, RICARDO L 244.9 HYPOTHYROIDISM 03/24/2012 M[employer] CR[employer] INTELLIGENCE SPECIALIST, RICARDO L 268.9 VITAMIN D DEFICIENCY 03/24/2012 M[employer] CR[employer] INTELLIGENCE SPECIALIST, RICARDO L 716.90 ARTHRITIS/ ARTHROPATHY, UNSPECIFIED 03/24/2012 PORTER DO, BON K 244.9 HYPOTHYROIDISM 03/24/2012 PORTER DO, BON K 268.9 VITAMIN D DEFICIENCY 03/24/2012 PORTER DO, BON K 716.90 ARTHRITIS/ ARTHROPATHY, UNSPECIFIED 03/24/2012 M[employer] CR[employer] INTELLIGENCE SPECIALIST, RICARDO L 244.9 HYPOTHYROIDISM 03/24/2012 M[employer] CR[employer] INTELLIGENCE SPECIALIST, RICARDO L 268.9 VITAMIN D DEFICIENCY 03/24/2012 MADL CRIMINAL INTELLIGENCE SPECIALIST, RICARDO L 716.90 ARTHRITIS/ ARTHROPATHY, UNSPECIFIED 03/24/2012 CHRISTIANO CARRERA PSYD ANN L 244.9 HYPOTHYROIDISM 03/24/2012 CHRISTIANO CARRERA PSYD ANN L 268.9 VITAMIN D DEFICIENCY 03/24/2012 CHRISTIANO CARRERA PSYD ANN L 716.90 ARTHRITIS/ ARTHROPATHY, UNSPECIFIED 03/24/2012 CHRISTIANO CARRERA PSYD L 244.9 HYPOTHYROIDISM 03/24/2012 CHRISTIANO CARRERA PSYD L 268.9 VITAMIN D DEFICIENCY 03/24/2012 CHRISTIANO CARRERA PSYD L 716.90 ARTHRITIS/ ARTHROPATHY, UNSPECIFIED 06/30/2012 PROTER DO, BON K 466.0 BRONCHITIS, ACUTE 06/30/2012 PORTER DO, BON K 786.2 COUGH 06/30/2012 PORTER DO, BON K 466.0 BRONCHITIS, ACUTE 06/30/2012 PORTER DO, BON K 786.2 COUGH 06/30/2012 CHRISTIANO CARRERA PSYD L 466.0 BRONCHITIS, ACUTE 06/30/2012 CHRISTIANO CARRERA [...] 466.0 BRONCHITIS, ACUTE 06/30/2012 786.2 COUGH 06/30/2012 RUBEN HILL APRN 466.0 BRONCHITIS, ACUTE 06/30/2012 RUBEN HILL APRN 786.2 COUGH 06/30/2012 HEMA CUTLER MD 466.0 BRONCHITIS, ACUTE 06/30/2012 HEMA CUTLER MD 786.2 COUGH 06/30/2012 CHRISTIANO CARRERA PSYD L 466.0 BRONCHITIS, ACUTE 06/30/2012 CHRISTIANO CARRERA PSYD ANN L 786.2 COUGH 06/30/2012 RUBEN HILL APRN 466.0 BRONCHITIS, ACUTE 06/30/2012 RUBEN HILL APRN 786.2 COUGH 06/30/2012 NIKOLAI CRIMINAL INTELLIGENCE SPECIALIST, MEGAN T 466.0 BRONCHITIS, ACUTE 06/30/2012 NIKOLAI CRIMINAL INTELLIGENCE SPECIALIST, MEGAN T 786.2 COUGH 06/30/2012 CHRISTIANO CARRERA PSYD ANN L 466.0 BRONCHITIS, ACUTE 06/30/2012 DEANDRE FRANCO, PITO L 786.2 COUGH 06/30/2012 OMAYRA ANDERSON, HEMA M 466.0 BRONCHITIS, ACUTE 06/30/2012 HEMA CUTLER MD M 786.2 COUGH 06/30/2012 HILL CRIMINAL INTELLIGENCE SPECIALIST, RUBEN DARBY 466.0 BRONCHITIS, ACUTE 06/30/2012 HILL CRIMINAL INTELLIGENCE SPECIALIST, RUBEN DARBY 786.2 COUGH 06/30/2012 MADL CRIMINAL INTELLIGENCE SPECIALIST, RICARDO L 466.0 BRONCHITIS, ACUTE 06/30/2012 MADL CRIMINAL INTELLIGENCE SPECIALIST, RICARDO L 786.2 COUGH 06/30/2012 MADL CRIMINAL INTELLIGENCE SPECIALIST, RICARDO L 466.0 BRONCHITIS, ACUTE 06/30/2012 MADL CRIMINAL INTELLIGENCE SPECIALIST, RICARDO L 786.2 COUGH 06/30/2012 MADL CRIMINAL INTELLIGENCE SPECIALIST, RICARDO L 466.0 BRONCHITIS, ACUTE 06/30/2012 MADL CRIMINAL INTELLIGENCE SPECIALIST, RICARDO L 786.2 COUGH 06/30/2012 MADL CRIMINAL INTELLIGENCE SPECIALIST, RICARDO L 466.0 BRONCHITIS, ACUTE 06/30/2012 MADL CRIMINAL INTELLIGENCE SPECIALIST, RICARDO L 786.2 COUGH 06/30/2012 MADL CRIMINAL INTELLIGENCE SPECIALIST, RICARDO L 466.0 BRONCHITIS, ACUTE 06/30/2012 MADL CRIMINAL INTELLIGENCE SPECIALIST, RICARDO L 786.2 COUGH 06/30/2012 MADL CRIMINAL INTELLIGENCE SPECIALIST, RICARDO L 466.0 BRONCHITIS, ACUTE 06/30/2012 MADL CRIMINAL INTELLIGENCE SPECIALIST, RICARDO L 786.2 COUGH 06/30/2012 CHRISTIANO CARRERA PSYD ANN L 466.0 BRONCHITIS, ACUTE 06/30/2012 CHRISTIANO CARRERA PSYD ANN L 786.2 COUGH 06/30/2012 MADL CRIMINAL INTELLIGENCE SPECIALIST, RICARDO L 466.0 BRONCHITIS, ACUTE 06/30/2012 MADL CRIMINAL INTELLIGENCE SPECIALIST, RICARDO L 786.2 COUGH 06/30/2012 MADL CRIMINAL INTELLIGENCE SPECIALIST, RICARDO L 466.0 BRONCHITIS, ACUTE 06/30/2012 MADL CRIMINAL INTELLIGENCE SPECIALIST, RICARDO L 786.2 COUGH 06/30/2012 PORTER DO, BON K 466.0 BRONCHITIS, ACUTE 06/30/2012 PORTER DO, BON K 786.2 COUGH 06/30/2012 CHRISTIANO CARRERA PSYD ANN L 466.0 BRONCHITIS, ACUTE 06/30/2012 CHRISTIANO CARRERA PSYD ANN L 786.2 COUGH 06/30/2012 MADL CRIMINAL INTELLIGENCE SPECIALIST, RICARDO L 466.0 BRONCHITIS, ACUTE 06/30/2012 MADL CRIMINAL INTELLIGENCE SPECIALIST, RICARDO L 786.2 COUGH 06/30/2012 MADL CRIMINAL INTELLIGENCE SPECIALIST, RICARDO L 466.0 BRONCHITIS, ACUTE 06/30/2012 MADL CRIMINAL INTELLIGENCE SPECIALIST, RICARDO L 786.2 COUGH 06/30/2012 MADL CRIMINAL INTELLIGENCE SPECIALIST, RICARDO L 466.0 BRONCHITIS, ACUTE 06/30/2012 MADL CRIMINAL INTELLIGENCE SPECIALIST, RICARDO L 786.2 COUGH 06/30/2012 CHRISTIANO CARRERA PSYD ANN L 466.0 BRONCHITIS, ACUTE 06/30/2012 CHRISTIAON CARRERA PSYD ANN L 786.2 COUGH 06/30/2012 MADL CRIMINAL INTELLIGENCE SPECIALIST, RICARDO L 466.0 BRONCHITIS, ACUTE 06/30/2012 MADL CRIMINAL INTELLIGENCE SPECIALIST, RICARDO L 786.2 COUGH 06/30/2012 MADL CRIMINAL INTELLIGENCE SPECIALIST, RICARDO L 466.0 BRONCHITIS, ACUTE 06/30/2012 MADL CRIMINAL INTELLIGENCE SPECIALIST, RICARDO L 786.2 COUGH 06/30/2012 MADL CRIMINAL INTELLIGENCE SPECIALIST, RICARDO L 466.0 BRONCHITIS, ACUTE 06/30/2012 MADL CRIMINAL INTELLIGENCE SPECIALIST, RICARDO L 786.2 COUGH 06/30/2012 PORTER DO, BON K 466.0 BRONCHITIS, ACUTE 06/30/2012 PORTER DO, BON K 786.2 COUGH 06/30/2012 MADL CRIMINAL INTELLIGENCE SPECIALIST, RICARDO L 466.0 BRONCHITIS, ACUTE 06/30/2012 MADL CRIMINAL INTELLIGENCE SPECIALIST, RICARDO L 786.2 COUGH 06/30/2012 CHRISTIANO CARRERA PSYD ANN L 466.0 BRONCHITIS, ACUTE 06/30/2012 CHRISTIANO CARRERA PSYD ANN L 786.2 COUGH 07/16/2012 PORTER DO, BON K 724.2 LUMBAGO/ LOW BACK PAIN 07/16/2012 CHRISTIANO CARRERA PSYD L 724.2 LUMBAGO/ LOW BACK PAIN 07/16/2012 724.2 LUMBAGO/ LOW BACK PAIN 07/16/2012 724.2 lower back pain 07/16/2012 724.2 lower back pain 07/16/2012 724.2 lower back pain 07/16/2012 724.2 lower back pain 07/16/2012 724.2 lower back pain 07/16/2012 724.2 lower back pain 07/16/2012 724.2 lower back pain 07/16/2012 724.2 lower back pain 07/16/2012 HILL CRIMINAL INTELLIGENCE SPECIALIST, RUBEN DARBY 724.2 lower back pain 07/16/2012 OMAYRA ANDERSON, HEMA Perry 724.2 lower back pain 07/16/2012 DEANDRE FRANCO, CHRISTIANO NASH L 724.2 lower back pain 07/16/2012 HILL CRIMINAL INTELLIGENCE SPECIALIST, RUBEN LAH 724.2 lower back pain 07/16/2012 MEGAN MENCHACA APRN 724.2 lower back pain 07/16/2012 DEANDRE FRANCO, CHRISTIANO NASH L 724.2 lower back pain 07/16/2012 HEMA CUTLER MD 724.2 lower back pain 07/16/2012 HILL CRIMINAL INTELLIGENCE SPECIALIST, RUBEN DARBY 724.2 lower back pain 07/16/2012 MADL CRIMINAL INTELLIGENCE SPECIALIST, RICARDO L 724.2 lower back pain 07/16/2012 MADL CRIMINAL INTELLIGENCE SPECIALIST, RICARDO L 724.2 lower back pain 07/16/2012 MADL CRIMINAL INTELLIGENCE SPECIALIST, RICARDO L 724.2 lower back pain 07/16/2012 MADL CRIMINAL INTELLIGENCE SPECIALIST, RICARDO L 724.2 lower back pain 07/16/2012 MADL CRIMINAL INTELLIGENCE SPECIALIST, RICARDO L 724.2 lower back pain 07/16/2012 MADL CRIMINAL INTELLIGENCE SPECIALIST, RICARDO L 724.2 lower back pain 07/16/2012 CHRISTIANO CARRERA PSYD L 724.2 lower back pain 07/16/2012 MADL CRIMINAL INTELLIGENCE SPECIALIST, RICARDO L 724.2 lower back pain 07/16/2012 MADL CRIMINAL INTELLIGENCE SPECIALIST, RICARDO L 724.2 lower back pain 07/16/2012 PORTER DO, BON K 724.2 lower back pain 07/16/2012 CHRISTIANO CARRERA PSYD L 724.2 lower back pain 07/16/2012 MADL CRIMINAL INTELLIGENCE SPECIALIST, RICARDO L 724.2 lower back pain 07/16/2012 MADL CRIMINAL INTELLIGENCE SPECIALIST, RICARDO L 724.2 lower back pain 07/16/2012 MADL CRIMINAL INTELLIGENCE SPECIALIST, RICARDO L 724.2 lower back pain 07/16/2012 CHRISTIANO CARRERA PSYD L 724.2 lower back pain 07/16/2012 MADL CRIMINAL INTELLIGENCE SPECIALIST, RICARDO L 724.2 lower back pain 07/16/2012 MADL CRIMINAL INTELLIGENCE SPECIALIST, RICARDO L 724.2 lower back pain 07/16/2012 MADL CRIMINAL INTELLIGENCE SPECIALIST, RICARDO L 724.2 lower back pain 07/16/2012 BON PORTER DO K 724.2 lower back pain 07/16/2012 MADL CRIMINAL INTELLIGENCE SPECIALIST, RICARDO L 724.2 lower back pain 07/16/2012 CHRISTIANO CARRERA PSYD L 724.2 lower back pain 11/10/2012 599.0 URINARY TRACT INFECTION 11/10/2012 599.0 URINARY TRACT INFECTION 11/10/2012 599.0 URINARY TRACT INFECTION 11/10/2012 RUBEN HILL APRN 599.0 URINARY TRACT INFECTION 11/10/2012 HEMA CUTLER MD 599.0 URINARY TRACT INFECTION 11/10/2012 CHRISTIANO CARRERA PSYD L 599.0 URINARY TRACT INFECTION 11/10/2012 RUBEN HILL APRN 599.0 URINARY TRACT INFECTION 11/10/2012 MEGAN MENCHACA APRN 599.0 URINARY TRACT INFECTION 11/10/2012 CHRISTIANO CARRERA PSYD L 599.0 URINARY TRACT INFECTION 11/10/2012 HEMA CUTLER MD 599.0 URINARY TRACT INFECTION 11/10/2012 RUBEN HILL APRN 599.0 URINARY TRACT INFECTION 11/10/2012 MADL CRIMINAL INTELLIGENCE SPECIALIST, RICARDO L 599.0 URINARY TRACT INFECTION 11/10/2012 MADL CRIMINAL INTELLIGENCE SPECIALIST, RICARDO L 599.0 URINARY TRACT INFECTION 11/10/2012 MADL CRIMINAL INTELLIGENCE SPECIALIST, RICARDO L 599.0 URINARY TRACT INFECTION 11/10/2012 MADL CRIMINAL INTELLIGENCE SPECIALIST, RICARDO L 599.0 URINARY TRACT INFECTION 11/10/2012 MADL CRIMINAL INTELLIGENCE SPECIALIST, RICARDO L 599.0 URINARY TRACT INFECTION 11/10/2012 MADL CRIMINAL INTELLIGENCE SPECIALIST, RICARDO L 599.0 URINARY TRACT INFECTION 11/10/2012 CHRISTIANO CARRERA PSYD L 599.0 URINARY TRACT INFECTION 11/10/2012 MADL CRIMINAL INTELLIGENCE SPECIALIST, RICARDO L 599.0 URINARY TRACT INFECTION 11/10/2012 MADL CRIMINAL INTELLIGENCE SPECIALIST, RICARDO L 599.0 URINARY TRACT INFECTION 11/10/2012 PORTER DO, BON K 599.0 URINARY TRACT INFECTION 11/10/2012 CHRISTIANO CARRERA PSYD L 599.0 URINARY TRACT INFECTION 11/10/2012 MADL CRIMINAL INTELLIGENCE SPECIALIST, RICARDO L 599.0 URINARY TRACT INFECTION 11/10/2012 MADL CRIMINAL INTELLIGENCE SPECIALIST, RICARDO L 599.0 URINARY TRACT INFECTION 11/10/2012 MADL CRIMINAL INTELLIGENCE SPECIALIST, RICARDO L 599.0 URINARY TRACT INFECTION 11/10/2012 CHRISTIANO CARRERA PSYD L 599.0 URINARY TRACT INFECTION 11/10/2012 MADL CRIMINAL INTELLIGENCE SPECIALIST, RICARDO L 599.0 URINARY TRACT INFECTION 11/10/2012 MADL CRIMINAL INTELLIGENCE SPECIALIST, RICARDO L 599.0 URINARY TRACT INFECTION 11/10/2012 MADL CRIMINAL INTELLIGENCE SPECIALIST, RICARDO L 599.0 URINARY TRACT INFECTION 11/10/2012 PORTER DO, BON K 599.0 URINARY TRACT INFECTION 11/10/2012 MADL CRIMINAL INTELLIGENCE SPECIALIST, RICARDO L 599.0 URINARY TRACT INFECTION 11/10/2012 CHRISTIANO CARRERA PSYD L 599.0 URINARY TRACT INFECTION 04/28/2013 MEGAN MENCHACA APRN 380.10 OTITIS EXTERNA RIGHT 04/28/2013 CHRISTIANO CARRERA PSYD L 380.10 OTITIS EXTERNA RIGHT 04/28/2013 OMAYRA ANDERSON, HEMA Perry 380.10 OTITIS EXTERNA RIGHT 04/28/2013 RUBEN HILL APRN 380.10 OTITIS EXTERNA RIGHT 04/28/2013 MADL CRIMINAL INTELLIGENCE SPECIALIST, RICARDO L 380.10 OTITIS EXTERNA RIGHT 04/28/2013 MADL CRIMINAL INTELLIGENCE SPECIALIST, RICARDO L 380.10 OTITIS EXTERNA RIGHT 04/28/2013 MADL CRIMINAL INTELLIGENCE SPECIALIST, RICARDO L 380.10 OTITIS EXTERNA RIGHT 04/28/2013 MADL CRIMINAL INTELLIGENCE SPECIALIST, RICARDO L 380.10 OTITIS EXTERNA RIGHT 04/28/2013 MADL CRIMINAL INTELLIGENCE SPECIALIST, RICARDO L 380.10 OTITIS EXTERNA RIGHT 04/28/2013 MADL CRIMINAL INTELLIGENCE SPECIALIST, RICARDO L 380.10 OTITIS EXTERNA RIGHT 04/28/2013 CHRISTIANO CARRERA PSYD L 380.10 OTITIS EXTERNA RIGHT 04/28/2013 MADL CRIMINAL INTELLIGENCE SPECIALIST, RICARDO L 380.10 OTITIS EXTERNA RIGHT 04/28/2013 MADL CRIMINAL INTELLIGENCE SPECIALIST, RICARDO L 380.10 OTITIS EXTERNA RIGHT 04/28/2013 SHANITA PORTER DOA K 380.10 OTITIS EXTERNA RIGHT 04/28/2013 CHRISTIANO CARRERA PSYD L 380.10 OTITIS EXTERNA RIGHT 04/28/2013 MAD CRIMINAL INTELLIGENCE SPECIALIST, RICARDO L 380.10 OTITIS EXTERNA RIGHT 04/28/2013 MAD CRIMINAL INTELLIGENCE SPECIALIST, RICARDO L 380.10 OTITIS EXTERNA RIGHT 04/28/2013 MADL CRIMINAL INTELLIGENCE SPECIALIST, RICARDO L 380.10 OTITIS EXTERNA RIGHT 04/28/2013 CHRISTIANO CARRERA PSYD L 380.10 OTITIS EXTERNA RIGHT 04/28/2013 MADL CRIMINAL INTELLIGENCE SPECIALIST, RICARDO L 380.10 OTITIS EXTERNA RIGHT 04/28/2013 MAD CRIMINAL INTELLIGENCE SPECIALIST, RICARDO L 380.10 OTITIS EXTERNA RIGHT 04/28/2013 MAD CRIMINAL INTELLIGENCE SPECIALIST, RICARDO L 380.10 OTITIS EXTERNA RIGHT 04/28/2013 SHANITA PORTER DOA K 380.10 OTITIS EXTERNA RIGHT 04/28/2013 MAD CRIMINAL INTELLIGENCE SPECIALIST, RICARDO L 380.10 OTITIS EXTERNA RIGHT 04/28/2013 CHRISTIANO CARRERA PSYD L 380.10 OTITIS EXTERNA RIGHT 07/06/2013 HEMA CUTLER MD 296.80 MO BIPOLAR NOS 07/06/2013 HEMA CUTLER MD 382.00 OTITIS MEDIA ACUTE SUPPURATIVE 07/06/2013 RUBEN HILL APRN 296.80 MO BIPOLAR NOS 07/06/2013 RUBEN HILL APRN 382.00 OTITIS MEDIA ACUTE SUPPURATIVE 07/06/2013 MADL CRIMINAL INTELLIGENCE SPECIALIST, RICARDO L 296.80 MO BIPOLAR NOS 07/06/2013 MADL CRIMINAL INTELLIGENCE SPECIALIST, RICARDO L 382.00 OTITIS MEDIA ACUTE SUPPURATIVE 07/06/2013 MADL CRIMINAL INTELLIGENCE SPECIALIST, RICARDO L 296.80 MO BIPOLAR NOS 07/06/2013 MADL CRIMINAL INTELLIGENCE SPECIALIST, RICARDO L 382.00 OTITIS MEDIA ACUTE SUPPURATIVE 07/06/2013 MADL CRIMINAL INTELLIGENCE SPECIALIST, RICARDO L 296.80 MO BIPOLAR NOS 07/06/2013 MADL CRIMINAL INTELLIGENCE SPECIALIST, RICARDO L 382.00 OTITIS MEDIA ACUTE SUPPURATIVE 07/06/2013 MADL CRIMINAL INTELLIGENCE SPECIALIST, RICARDO L 296.80 MO BIPOLAR NOS 07/06/2013 MADL CRIMINAL INTELLIGENCE SPECIALIST, RICARDO L 382.00 OTITIS MEDIA ACUTE SUPPURATIVE 07/06/2013 MADL CRIMINAL INTELLIGENCE SPECIALIST, RICARDO L 296.80 MO BIPOLAR NOS 07/06/2013 MAD CRIMINAL INTELLIGENCE SPECIALIST, RICARDO L 382.00 OTITIS MEDIA ACUTE SUPPURATIVE 07/06/2013 MADL CRIMINAL INTELLIGENCE SPECIALIST, RICARDO L 296.80 MO BIPOLAR NOS 07/06/2013 MADL CRIMINAL INTELLIGENCE SPECIALIST, RICARDO L 382.00 OTITIS MEDIA ACUTE SUPPURATIVE 07/06/2013 CHRISTIANO CARRERA PSYD L 296.80 MO BIPOLAR NOS 07/06/2013 CHRISTIANO CARRERA PSYD ANN L 382.00 OTITIS MEDIA ACUTE SUPPURATIVE 07/06/2013 MAD CRIMINAL INTELLIGENCE SPECIALIST, RCIARDO L 296.80 MO BIPOLAR NOS 07/06/2013 MAD CRIMINAL INTELLIGENCE SPECIALIST, RICARDO L 382.00 OTITIS MEDIA ACUTE SUPPURATIVE 07/06/2013 MADL CRIMINAL INTELLIGENCE SPECIALIST, RICARDO L 296.80 MO BIPOLAR NOS 07/06/2013 MADL CRIMINAL INTELLIGENCE SPECIALIST, RICARDO L 382.00 OTITIS MEDIA ACUTE SUPPURATIVE 07/06/2013 PORTER DO BON K 296.80 MO BIPOLAR NOS 07/06/2013 PORTER DO BON K 382.00 OTITIS MEDIA ACUTE SUPPURATIVE 07/06/2013 CHRISTIANO CARRERA PSYD ANN L 296.80 MO BIPOLAR NOS 07/06/2013 CHRISTIANO CARRERA PSYD ANN L 382.00 OTITIS MEDIA ACUTE SUPPURATIVE 07/06/2013 MADL CRIMINAL INTELLIGENCE SPECIALIST, RICARDO L 296.80 MO BIPOLAR NOS 07/06/2013 MADL CRIMINAL INTELLIGENCE SPECIALIST, RICARDO L 382.00 OTITIS MEDIA ACUTE SUPPURATIVE 07/06/2013 MADL CRIMINAL INTELLIGENCE SPECIALIST, RICARDO L 296.80 MO BIPOLAR NOS 07/06/2013 MADL CRIMINAL INTELLIGENCE SPECIALIST, RICARDO L 382.00 OTITIS MEDIA ACUTE SUPPURATIVE 07/06/2013 MADL CRIMINAL INTELLIGENCE SPECIALIST, RICARDO L 296.80 MO BIPOLAR NOS 07/06/2013 MADL CRIMINAL INTELLIGENCE SPECIALIST, RICARDO L 382.00 OTITIS MEDIA ACUTE SUPPURATIVE 07/06/2013 CHRISTIANO CARRERA PSYD ANN L 296.80 MO BIPOLAR NOS 07/06/2013 CHRISTIANO CARRERA PSYD ANN L 382.00 OTITIS MEDIA ACUTE SUPPURATIVE 07/06/2013 MADL CRIMINAL INTELLIGENCE SPECIALIST, RICARDO L 296.80 MO BIPOLAR NOS 07/06/2013 MADL CRIMINAL INTELLIGENCE SPECIALIST, RICARDO L 382.00 OTITIS MEDIA ACUTE SUPPURATIVE 07/06/2013 MADL CRIMINAL INTELLIGENCE SPECIALIST, RICARDO L 296.80 MO BIPOLAR NOS 07/06/2013 MADL CRIMINAL INTELLIGENCE SPECIALIST, RICARDO L 382.00 OTITIS MEDIA ACUTE SUPPURATIVE 07/06/2013 MADL CRIMINAL INTELLIGENCE SPECIALIST, RICARDO L 296.80 MO BIPOLAR NOS 07/06/2013 MADL CRIMINAL INTELLIGENCE SPECIALIST, RICARDO L 382.00 OTITIS MEDIA ACUTE SUPPURATIVE 07/06/2013 PORTER DO, BON K 296.80 MO BIPOLAR NOS 07/06/2013 PORTER DO, BON K 382.00 OTITIS MEDIA ACUTE SUPPURATIVE 07/06/2013 MADL CRIMINAL INTELLIGENCE SPECIALIST, RICARDO L 296.80 MO BIPOLAR NOS 07/06/2013 MADL CRIMINAL INTELLIGENCE SPECIALIST, RICARDO L 382.00 OTITIS MEDIA ACUTE SUPPURATIVE 07/06/2013 CHRISTIANO CARRERA PSYD ANN L 296.80 MO BIPOLAR NOS 07/06/2013 CHRISTIANO CARRERA PSYD ANN L 382.00 OTITIS MEDIA ACUTE SUPPURATIVE 10/06/2013 MADL CRIMINAL INTELLIGENCE SPECIALIST, RICARDO L 461.9 SINUSITIS ACUTE 10/06/2013 MADL CRIMINAL INTELLIGENCE SPECIALIST, RICARDO L 461.9 SINUSITIS ACUTE 10/06/2013 MADL CRIMINAL INTELLIGENCE SPECIALIST, RICARDO L 461.9 SINUSITIS ACUTE 10/06/2013 MADL CRIMINAL INTELLIGENCE SPECIALIST, RICARDO L 461.9 SINUSITIS ACUTE 10/06/2013 MADL CRIMINAL INTELLIGENCE SPECIALIST, RICARDO L 461.9 SINUSITIS ACUTE 10/06/2013 MADL CRIMINAL INTELLIGENCE SPECIALIST, RICARDO L 461.9 SINUSITIS ACUTE 10/06/2013 CHRISTIANO CARRERA PSYD ANN L 461.9 SINUSITIS ACUTE 10/06/2013 MADL CRIMINAL INTELLIGENCE SPECIALIST, RICARDO L 461.9 SINUSITIS ACUTE 10/06/2013 MADL CRIMINAL INTELLIGENCE SPECIALIST, RICARDO L 461.9 SINUSITIS ACUTE 10/06/2013 PORTER DO, BON K 461.9 SINUSITIS ACUTE 10/06/2013 CHRISTIANO CARRERA PSYD L 461.9 SINUSITIS ACUTE 10/06/2013 MADL CRIMINAL INTELLIGENCE SPECIALIST, RICARDO L 461.9 SINUSITIS ACUTE 10/06/2013 MADL CRIMINAL INTELLIGENCE SPECIALIST, RICARDO L 461.9 SINUSITIS ACUTE 10/06/2013 MADL CRIMINAL INTELLIGENCE SPECIALIST, RICARDO L 461.9 SINUSITIS ACUTE 10/06/2013 CHRISTIANO CARRERA PSYD ANN L 461.9 SINUSITIS ACUTE 10/06/2013 MADL CRIMINAL INTELLIGENCE SPECIALIST, RICARDO L 461.9 SINUSITIS ACUTE 10/06/2013 MADL CRIMINAL INTELLIGENCE SPECIALIST, RICARDO L 461.9 SINUSITIS ACUTE 10/06/2013 MADL CRIMINAL INTELLIGENCE SPECIALIST, RICARDO L 461.9 SINUSITIS ACUTE 10/06/2013 PORTER DO, BON K 461.9 SINUSITIS ACUTE 10/06/2013 MADL CRIMINAL INTELLIGENCE SPECIALIST, RICARDO L 461.9 SINUSITIS ACUTE 10/06/2013 CHRISTIANO CARRERA PSYD ANN L 461.9 SINUSITIS ACUTE 11/05/2013 MADL CRIMINAL INTELLIGENCE SPECIALIST, RICARDO L 782.3 EDEMA 11/05/2013 MADL CRIMINAL INTELLIGENCE SPECIALIST, RICARDO L 782.3 EDEMA 11/05/2013 MADL CRIMINAL INTELLIGENCE SPECIALIST, RICARDO L 782.3 EDEMA 11/05/2013 MADL CRIMINAL INTELLIGENCE SPECIALIST, RICARDO L 782.3 EDEMA 11/05/2013 MADL CRIMINAL INTELLIGENCE SPECIALIST, RICARDO L 782.3 EDEMA 11/05/2013 CHRISTIANO CARRERA PSYD L 782.3 EDEMA 11/05/2013 MADL CRIMINAL INTELLIGENCE SPECIALIST, RICARDO L 782.3 EDEMA 11/05/2013 MADL CRIMINAL INTELLIGENCE SPECIALIST, RICARDO L 782.3 EDEMA 11/05/2013 PORTER DO, BON K 782.3 EDEMA 11/05/2013 CHRISTIANO CARRERA PSYD L 782.3 EDEMA 11/05/2013 MADL CRIMINAL INTELLIGENCE SPECIALIST, RICARDO L 782.3 EDEMA 11/05/2013 MADL CRIMINAL INTELLIGENCE SPECIALIST, RICARDO L 782.3 EDEMA 11/05/2013 MADL CRIMINAL INTELLIGENCE SPECIALIST, RICARDO L 782.3 EDEMA 11/05/2013 CHRISTIANO CARRERA PSYD L 782.3 EDEMA 11/05/2013 MADL CRIMINAL INTELLIGENCE SPECIALIST, RICARDO L 782.3 EDEMA 11/05/2013 MADL CRIMINAL INTELLIGENCE SPECIALIST, RICARDO L 782.3 EDEMA 11/05/2013 MADL CRIMINAL INTELLIGENCE SPECIALIST, RICARDO L 782.3 EDEMA 11/05/2013 PORTER DO, BON K 782.3 EDEMA 11/05/2013 MADL CRIMINAL INTELLIGENCE SPECIALIST, RICARDO L 782.3 EDEMA 11/05/2013 CHRISTIANO CARRERA PSYD L 782.3 EDEMA 11/24/2013 MADL CRIMINAL INTELLIGENCE SPECIALIST, RICARDO L 686.8 OTHER SPECIFIED LOCAL INFECTIONS OF SKIN AND SUBCUTANEOUS TISSUE 11/24/2013 MADL CRIMINAL INTELLIGENCE SPECIALIST, RICARDO L 686.8 OTHER SPECIFIED LOCAL INFECTIONS OF SKIN AND SUBCUTANEOUS TISSUE 11/24/2013 CHRISTIANO CARRERA PSYD L 686.8 OTHER SPECIFIED LOCAL INFECTIONS OF SKIN AND SUBCUTANEOUS TISSUE 11/24/2013 MADL CRIMINAL INTELLIGENCE SPECIALIST, RICARDO L 686.8 OTHER SPECIFIED LOCAL INFECTIONS OF SKIN AND SUBCUTANEOUS TISSUE 11/24/2013 MADL CRIMINAL INTELLIGENCE SPECIALIST, RICARDO L 686.8 OTHER SPECIFIED LOCAL INFECTIONS OF SKIN AND SUBCUTANEOUS TISSUE 11/24/2013 PORTER DOBON K 686.8 OTHER SPECIFIED LOCAL INFECTIONS OF SKIN AND SUBCUTANEOUS TISSUE 11/24/2013 CHRISTIANO CARRERA PSYD L 686.8 OTHER SPECIFIED LOCAL INFECTIONS OF SKIN AND SUBCUTANEOUS TISSUE 11/24/2013 MADL CRIMINAL INTELLIGENCE SPECIALIST, RICARDO L 686.8 OTHER SPECIFIED LOCAL INFECTIONS OF SKIN AND SUBCUTANEOUS TISSUE 11/24/2013 MADL CRIMINAL INTELLIGENCE SPECIALIST, RICARDO L 686.8 OTHER SPECIFIED LOCAL INFECTIONS OF SKIN AND SUBCUTANEOUS TISSUE 11/24/2013 MADL CRIMINAL INTELLIGENCE SPECIALIST, RICARDO L 686.8 OTHER SPECIFIED LOCAL INFECTIONS OF SKIN AND SUBCUTANEOUS TISSUE 11/24/2013 CHRISTIANO CARRERA PSYD L 686.8 OTHER SPECIFIED LOCAL INFECTIONS OF SKIN AND SUBCUTANEOUS TISSUE 11/24/2013 MADL CRIMINAL INTELLIGENCE SPECIALIST, RICARDO L 686.8 OTHER SPECIFIED LOCAL INFECTIONS OF SKIN AND SUBCUTANEOUS TISSUE 11/24/2013 MADL CRIMINAL INTELLIGENCE SPECIALIST, RICARDO L 686.8 OTHER SPECIFIED LOCAL INFECTIONS OF SKIN AND SUBCUTANEOUS TISSUE 11/24/2013 MADL CRIMINAL INTELLIGENCE SPECIALIST, RICARDO L 686.8 OTHER SPECIFIED LOCAL INFECTIONS OF SKIN AND SUBCUTANEOUS TISSUE 11/24/2013 BON PORTER DO 686.8 OTHER SPECIFIED LOCAL INFECTIONS OF SKIN AND SUBCUTANEOUS TISSUE 11/24/2013 MADL CRIMINAL INTELLIGENCE SPECIALIST, RICARDO L 686.8 OTHER SPECIFIED LOCAL INFECTIONS OF SKIN AND SUBCUTANEOUS TISSUE 11/24/2013 CHRISTIANO CARRERA PSYD L 686.8 OTHER SPECIFIED LOCAL INFECTIONS OF SKIN AND SUBCUTANEOUS TISSUE 02/07/2014 MADL CRIMINAL INTELLIGENCE SPECIALIST, RICARDO L 787.02 NAUSEA ALONE 02/07/2014 MADL CRIMINAL INTELLIGENCE SPECIALIST, RICARDO L 787.02 NAUSEA ALONE 02/07/2014 MADL CRIMINAL INTELLIGENCE SPECIALIST, RICARDO L 787.02 NAUSEA ALONE 02/07/2014 CHRISTIANO CARRERA PSYD L 787.02 NAUSEA ALONE 02/07/2014 MADL CRIMINAL INTELLIGENCE SPECIALIST, RICARDO L 787.02 NAUSEA ALONE 02/07/2014 MADL CRIMINAL INTELLIGENCE SPECIALIST, RICARDO L 787.02 NAUSEA ALONE 02/07/2014 MADL CRIMINAL INTELLIGENCE SPECIALIST, RICARDO L 787.02 NAUSEA ALONE 02/07/2014 PORTER SHANITA RUSHINGA K 787.02 NAUSEA ALONE 02/07/2014 MADL CRIMINAL INTELLIGENCE SPECIALIST, RICARDO L 787.02 NAUSEA ALONE 02/07/2014 CHRISTIANO CARRERA PSYD L 787.02 NAUSEA ALONE 04/18/2014 MADL CRIMINAL INTELLIGENCE SPECIALIST, RICARDO L 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 04/18/2014 MADL CRIMINAL INTELLIGENCE SPECIALIST, RICARDO L 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 04/18/2014 ANDREW ROGERS APRNA L 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 04/18/2014 PORTER DO BON K 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 04/18/2014 ANDREW ROGERS APRNA L 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 04/18/2014 CHRISTIANO CARRERA PSYD 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 06/20/2014 KEN KUMARNLYNNRICARDO L 789.01 ABDOMINAL PAIN RIGHT UPPER QUADRANT 06/20/2014 PORTER DOSHANITAA K 789.01 ABDOMINAL PAIN RIGHT UPPER QUADRANT 06/20/2014 LYNN ROGERS APRNNYA L 789.01 ABDOMINAL PAIN RIGHT UPPER QUADRANT 06/20/2014 CHRISTIANO CARRERA PSYD 789.01 ABDOMINAL PAIN RIGHT UPPER QUADRANT 07/18/2014 PORTER SHANITA RUSHINGA K 575.8 OTHER SPECIFIED DISORDERS OF GALLBLADDER 07/18/2014 RICARDO ROGERS APRN L 575.8 OTHER SPECIFIED DISORDERS OF GALLBLADDER 07/18/2014 CHRISTIANO CARRERA PSYD 575.8 OTHER SPECIFIED DISORDERS OF GALLBLADDER 08/23/2014 KEN CRIMINAL INTELLIGENCE SPECIALISTRICARDO Mcclure L 460 ACUTE NASOPHARYNGITIS (COMMON COLD) 08/23/2014 CHRISTIANO CARRERA PSYD 460 ACUTE NASOPHARYNGITIS (COMMON COLD) Procedures Code Description [place] [address] INDIV PSYTX 45/50 MIN 03/12/2012 21106 CULTURE WOUND (AEROBIC) 03/12/2012 03494 ROUTINE VENIPUNCTURE 03/25/2012 01643 ESR/SED RATE 03/25/2012 77574 CBC 03/25/2012 33747 CMP 03/25/2012 16411 LIPID PANEL 03/25/2012 6558749 GFR CALC (RESULT ONLY) 03/25/2012 73985 CRP 03/26/2012 20144 VITAMIN D 25-HYDROXY (D2,D3, TOTAL) 03/26/2012 72433 TSH 03/26/2012 41109 URIC ACID 03/26/2012 58981 ASO 03/26/2012 11549 RA FACTOR 03/26/2012 ANAANA [place] ANALYZER (SCREEN) 03/26/2012 18642 INDIV PSYTX 45/50 MIN 03/27/2012 80189 INDIV PSYTX 45/50 MIN 04/08/2012 47434 INDIV PSYTX 45/50 MIN 04/22/2012 58582 XRAY CHEST 2 VIEW 06/30/2012 07528 XRAY LUMBAR SPINE 2 OR 3 VIEWS 07/16/2012 47885 MRI SPINE (LUMBAR) W & W/O CONTRAST 07/16/2012 48267 PSYCH PHARM MGMT 07/17/2012 62592 PSYTX PT&/FAMILY 45 MINUTES 07/28/2012 89235 ROUTINE VENIPUNCTURE 08/26/2012 70771 URINE DRUG SCREEN (IN-HOUSE) 08/26/2012 91704 LIVER PANEL (LFT) 08/26/2012 13132 T4 FREE 08/27/2012 42359 TSH 08/27/2012 92320 HEPATITIS PROFILE 08/27/2012 41636 ROUTINE VENIPUNCTURE 10/13/2012 35545 URINE DRUG SCREEN (IN-HOUSE) 10/13/2012 33227 VITAMIN D 25-HYDROXY (D2,D3, TOTAL) 10/13/2012 78875 TSH 10/13/2012 40171 T4 FREE 10/13/2012 26234 URINE DRUG SCREEN (IN-HOUSE) 11/10/2012 13560 MRI SPINE (LUMBAR) W/O CONTRAST 11/13/2012 79889 PSYTX PT&/FAMILY 45 MINUTES 12/31/2012 79841 ROUTINE VENIPUNCTURE 02/12/2013 71402 TSH 02/12/2013 60619 T4 FREE 02/12/2013 52084 PSYTX PT&/FAMILY 45 MINUTES 03/16/2013 90685 URINE DRUG SCREEN (IN-HOUSE) 03/16/2013 20774 PSYTX PT&/FAMILY 45 MINUTES 05/27/2013 19116 ROUTINE VENIPUNCTURE 07/06/2013 92793 URINE DRUG SCREEN (IN-HOUSE) 07/06/2013 74928 T4 FREE 07/06/2013 85642 TSH 07/06/2013 56513 ROUTINE VENIPUNCTURE 10/06/2013 [id number] GFR CALC (RESULT ONLY) 10/06/2013 03580 CMP 10/06/2013 78124 TSH 10/06/2013 61105 ROUTINE VENIPUNCTURE 11/22/2013 55207 CBC 11/22/2013 68543 I/D SIMPLE ABSCESS 11/24/2013 21041 PSYTX PT&/FAMILY 45 MINUTES 12/02/2013 03756 ROUTINE VENIPUNCTURE 01/05/2014 [id number] GFR CALC (RESULT ONLY) 01/05/2014 59707 BMP 01/05/2014 78495 TSH 01/05/2014 34544 PSYTX PT&/FAMILY 45 MINUTES 02/03/2014 18830 PSYTX PT&/FAMILY 45 MINUTES 04/05/2014 38901 ROUTINE VENIPUNCTURE 06/20/2014 [id number] GFR CALC (RESULT ONLY) 06/20/2014 80672 CMP 06/20/2014 08255 TSH 06/20/2014 43820 HIDA SCAN 06/21/2014 71701 PSYTX PT&/FAMILY 45 MINUTES 09/02/2014 Results There is no data. Encounters ACCT No. Visit Date/Time Discharge Status Pt. Type Provider Facility Loc./Unit Complaint [id number] 09/02/2014 12:56:00 09/02/2014 23:59:59 CLS Outpatient CHRISTIANO CARRERA PSYD [id number] 08/23/2014 11:03:00 08/23/2014 23:59:59 CLS Outpatient MADL [facility]TELL[facility] SPECIALIST, RICARDO L [id number] 07/18/2014 13:57:00 07/18/2014 23:59:59 CLS Outpatient BON PORTER DO [id number] 06/20/2014 13:39:00 06/20/2014 23:59:59 CLS Outpatient MADL CR[employer]IN[facility] INTELLIGENCE SPECIALIST, RICARDO L [id number] 05/19/2014 10:54:00 05/19/2014 23:59:59 CLS Outpatient MADL CR[facility] INTELLIGENCE SPECIALIST, RICARDO L [id number] 04/19/2014 13:18:00 04/19/2014 23:59:59 CLS Outpatient MADL CR[facility]IN[facility] INTELLIGENCE SPECIALIST, RICARDO L [id number] 04/05/2014 12:43:00 04/05/2014 23:59:59 CLS Outpatient CHRISTIANO CARRERA PSYD [id number] 03/09/2014 10:36:00 03/09/2014 23:59:59 CLS Outpatient MADL CR[facility] INTELLIGENCE SPECIALIST, RICARDO L [id number] 02/07/2014 13:08:00 02/07/2014 23:59:59 CLS Outpatient MADL CRIMIN[facility] INTELLIGENCE SPECIALIST, RICARDO L [id number] 02/03/2014 12:38:00 02/03/2014 23:59:59 CLS Outpatient CHRISTIANO CARRERA PSYD L [id number] 01/11/2014 17:20:00 01/11/2014 23:59:59 CLS Outpatient BON PORTER DO [id number] 01/05/2014 13:39:00 01/05/2014 23:59:59 CLS Outpatient MADL CR[facility]IN[facility] INTELLIGENCE SPECIALIST, RICARDO L [id number] 12/08/2013 10:37:00 12/08/2013 23:59:59 CLS Outpatient MADL CRIMIN[facility] INTELLIGENCE SPECIALIST, RICARDO L [id number] 12/02/2013 14:47:00 12/02/2013 23:59:59 CLS Outpatient CHRISTIANO CARRERA PSYD L [id number] 11/26/2013 10:08:00 11/26/2013 23:59:59 CLS Outpatient MAD[facility] CR[facility] INTELLIGENCE SPECIALIST, RICARDO L [id number] 11/24/2013 11:20:00 11/24/2013 23:59:59 CLS Outpatient MADL CR[facility] INTELLIGENCE SPECIALIST, RICARDO L [id number] 11/22/2013 10:08:00 11/22/2013 23:59:59 CLS Outpatient MADL CRIMIN[facility] INTELLIGENCE SPECIALIST, RICARDO L [id number] 11/22/2013 10:08:00 11/22/2013 23:59:59 CLS Outpatient MADL CRIMIN[facility] INTELLIGENCE SPECIALIST, RICARDO L [id number] 11/17/2013 15:27:00 11/17/2013 23:59:59 CLS Outpatient MADL CR[facility]IN[facility] INTELLIGENCE SPECIALIST, RICARDO L [id number] 11/05/2013 08:48:00 11/05/2013 23:59:59 CLS Outpatient MADL CR[facility] INTELLIGENCE SPECIALIST, RICARDO L [id number] 10/06/2013 10:59:00 10/06/2013 23:59:59 CLS Outpatient MADL CRIMIN[facility] INTELLIGENCE SPECIALIST, RICARDO L [id number] 09/06/2013 11:01:00 09/06/2013 23:59:59 CLS Outpatient HILL [facility]TELLIGENCE SPECIALISTRUBEN Mcclure [id number] 07/06/2013 10:37:00 07/06/2013 23:59:59 CLS Outpatient HEMA CUTLER MD [id number] 05/24/2013 12:37:00 05/24/2013 23:59:59 CLS Outpatient MCCLEEARY PSYD, PITO L [id number] 04/28/2013 13:39:00 04/28/2013 23:59:59 CLS Outpatient MEGAN MENCHACA APRN [id number] 04/05/2013 08:48:00 04/05/2013 23:59:59 CLS Outpatient RUBEN HILL APRN [id number] 03/15/2013 13:49:00 03/15/2013 23:59:59 CLS Outpatient CHRISTIANO CARRERA PSYD [id number] 02/12/2013 14:55:00 02/12/2013 23:59:59 CLS Outpatient HEMA CUTLER MD [id number] 02/01/2013 10:24:00 02/01/2013 23:59:59 CLS Outpatient RUBEN HILL APRN [id number] 07/27/2012 10:48:00 07/27/2012 23:59:59 CLS Outpatient CHRISTIANO CARRERA PSYD [id number] 07/16/2012 11:37:00 07/16/2012 23:59:59 CLS Outpatient GERMAN RUSHING BON Max [id number] 06/30/2012 15:34:00 06/30/2012 23:59:59 CLS Outpatient GERMAN RUSHING BON Max [id number] 06/16/2012 09:22:00 06/16/2012 23:59:59 CLS Outpatient [id number] 04/22/2012 09:05:00 04/22/2012 23:59:59 CLS Outpatient CHRISTIANO CARRERA PSYD [id number] 03/12/2012 13:41:00 03/12/2012 23:59:59 CLS Outpatient CHRISTIANO CARRERA PSYD [id number] 12/31/2012 12:35:00 Document Registration [id number] 11/19/2012 00:00:00 Document Registration [id number] 11/10/2012 10:04:00 Document Registration [id number] 10/13/2012 14:49:00 Document Registration [id number] 10/05/2012 00:00:00 Document Registration [id number] 09/09/2012 00:00:00 Document Registration [id number] 09/07/2012 00:00:00 Document Registration [id number] 08/26/2012 13:34:00 Document Registration [id number] 08/20/2012 11:06:00 Document Registration
--- NOTE | 2018-11-10 16:18 | ED Integumentary General ---
General Chief Complaint: Skin/Wound Problems Stated Complaint: BOTTOM LIP SWELLING Nursing Triage Note: PATIENT STATES THAT SHE HAS BEEN HAVING TROUBLE WITH HER LIP PIERCING SINCE FRIDAY. Source: patient Exam Limitations: no limitations History of Present Illness Date Seen by Provider: Nov 10, 2018 Time Seen by Provider: 16:14 Initial Comments To ER with reports of swelling to the bottom lip the past 2 days. She had a friend Hilton this for her at home on of last week. No fevers or chills. Timing/Duration: constant Severity: moderate Location: face Associated Symptoms: denies symptoms Allergies and Home Medications Allergies Coded Allergies: methocarbamol (Unverified Allergy, Unknown, 10/13/15) fentanyl (Verified Adverse Reaction, Unknown, 11/19/13) Home Medications Albuterol/Ipratropium 4 Gm Aero, 1 PUFF IH QID PRN for SHORTNESS OF BREATH, (Reported) Brexpiprazole 2 Mg Tablet, 2 MG PO HS, (Reported) Buspirone HCl 5 Mg Tablet, 5 MG PO BID, (Reported) Levothyroxine Sodium 150 Mcg Tablet, 150 MCG PO DAILY, (Reported) Lisinopril 2.5 Mg Tablet, 2.5 MG PO DAILY, (Reported) Lovastatin 20 Mg Tablet, 20 MG PO DAILY, (Reported) Metformin HCl 500 Mg Tab.er.24h, 500 MG PO BID WITH MEALS, (Reported) Nabumetone 500 Mg Tablet, 500 MG PO BID WITH MEALS, (Reported) Tizanidine HCl 4 Mg Tablet, 8 TAB PO TID, (Reported) TAKES 2 (4MG) TABLETS Trazodone HCl 150 Mg Tablet, 150-300 MG PO HS, (Reported) Vortioxetine Hydrobromide 20 Mg Tablet, 20 MG PO HS, (Reported) Patient Home Medication List Home Medication List Reviewed: Yes Review of Systems Review of Systems Constitutional: see HPI EENTM: see HPI Respiratory: no symptoms reported Cardiovascular: no symptoms reported Genitourinary: no symptoms reported Musculoskeletal: no symptoms reported Skin: no symptoms reported Psychiatric/Neurological: No Symptoms Reported Endocrine: No Symptoms Reported Past Kmnfolg-Ocxbiq-Trmimn Hx Patient Social History Alcohol Use: Denies Use Recreational Drug Use: Yes Drug of Choice: CANNABIS Smoking Status: Current Everyday Smoker Type Used: Cigarettes 2nd Hand Smoke Exposure: Yes Recent Foreign Travel: No Contact w/Someone Who Travel: No Recent Infectious Disease Expo: No Recent Hopitalizations: No Physical Abuse: No Sexual Abuse: No Immunizations Up To Date Tetanus Booster (TDap): Unknown Date of Influenza Vaccine: Feb 08, 2017 Seasonal Allergies Seasonal Allergies: No Past Medical History Surgeries: Yes (RIGHT LUNG BIOPSY) Gallbladder, Hysterectomy, Oophorectomy, Orthopedic, Tracheostomy Respiratory: Yes (surgical bx for pneumonia/on ventilator WITH TRACH 1996, WEARS OXYGEN AT 2 ) Asthma, Pneumonia, Chronic Bronchitis, Sleep Apnea, COPD Currently Using CPAP: No Currently Using BIPAP: No Cardiac: Yes High Cholesterol, Hypertension Neurological: Yes (lumbar neural foraminal stenosis) Headaches /Migraines 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 No Pertinent Family Hx Physical Exam Vital Signs Vital Signs - First Documented 11/10/18 15:34 Temp 98.4 Pulse 86 Resp 20 B/P (MAP) 111/71 (84) Pulse Ox 97 Capillary Refill : Less Than 3 Seconds General Appearance: WD/WN, no apparent distress HEENT: PERRL/EOMI, normal ENT inspection, other (There is a piercing through the middle of the bottom lip. There is no drainage currently but she reports that she has had some drainage at home. There is about 1/2 cm of swelling and erythema around this) Respiratory: no respiratory distress, no accessory muscle use Extremities: normal range of motion, non-tender Neurologic/Psychiatric: alert, normal mood/affect, oriented x 3 Skin: normal color, warm/dry Skin Problem Character: erythema Progress/Results/Core Measures Results/Orders Vital Signs/I&O 11/10/18 15:34 Temp 98.4 Pulse 86 Resp 20 B/P (MAP) 111/71 (84) Pulse Ox 97 Blood Pressure Mean: 84 Departure Impression Primary Impression: infected piercing bottom lip Disposition: 01 HOME, SELF-CARE Condition: Stable Departure-Patient Inst. Decision time for Depature: 16:16 Referrals: [facility] (PCP) Primary Care Physician PHILIPPE GOINS APRN (Family) Primary Care Physician Patient Instructions: Cellulitis (Skin Infection), Adult (DC) Add. Discharge Instructions: 1. Antibiotics as directed 2. Return to ER for any concerns 3. You should remove the piercing. All discharge instructions reviewed with p atient and/or family. Voiced understanding. Scripts Amoxicillin/Potassium Clav (Augmentin 875-125 Tablet) 1 Each Tablet 1 EACH PO BID, #14 TAB 0 Refills Prov: HECTOR MONSIVAIS APRN 11/10/18 HECTOR MONSIVAIS APRN Nov 10, 2018 16:18
== END | disposition home or self-care (01) ==
LOC: EDUNIT# 15:29 → ER 15:31
DX: S01.531A Puncture wound without foreign body of lip, initial encounter (principal); L08.9 Local infection of the skin and subcutaneous tissue, unspecified; J44.9 Chronic obstructive pulmonary disease, unspecified; G47.30 Sleep apnea, unspecified; I10 Essential (primary) hypertension; E78.00 Pure hypercholesterolemia, unspecified; G43.909 Migraine, unspecified, not intractable, without status migrainosus; K21.9 Gastro-esophageal reflux disease without esophagitis; E03.9 Hypothyroidism, unspecified; E11.9 Type 2 diabetes mellitus without complications; F41.9 Anxiety disorder, unspecified; F32.9 Major depressive disorder, single episode, unspecified; F12.10 Cannabis abuse, uncomplicated; F17.210 Nicotine dependence, cigarettes, uncomplicated; Z87.01 Personal history of pneumonia (recurrent); Z90.710 Acquired absence of both cervix and uterus; Z88.5 Allergy status to narcotic agent; Z79.84 Long term (current) use of oral hypoglycemic drugs; Z93.0 Tracheostomy status; Z99.81 Dependence on supplemental oxygen; X58.XXXA Exposure to other specified factors, initial encounter
CPT/HCPCS: 99282

== ENCOUNTER 2019-04-14 00:46 | Emergency (ER) | payer MEDICAID ==
[~2019-04-14] VITALS: Ht 175 cm; Wt 105.0 kg
[~2019-04-14 00:46] MED LIST changes: +D-ME473S11 PO; -D-ME473S38 PO; +METF500T19 PO; -METF500T8 PO; -TIZA4TAB3 PO; +TIZA4TAB4 PO
[2019-04-14] MEDS ORDERED: RX-ALBUTEROL INHALER (PROAIR) 8.5 GM IH STA (01:44)
--- NOTE | 2019-04-14 02:33 | ED General ---
General Chief Complaint: Cough/Cold/Flu Symptoms Stated Complaint: COUGH/CONGESTION/SOA Nursing Triage Note: Pt ambulates to Rm 5 with c/o SOB, fever/chills, congestion, and productive cough x 1 wk, N/V x 1 day. Pt states she had bronchitis x 2 wks ago, was on doxycycline and prednisone. Pt denies any chest pain at this time. Nursing Sepsis Screen: No Definite Risk Source of Information: Patient Exam Limitations: No Limitations History of Present Illness Date Seen by Provider: Apr 14, 2019 Time Seen by Provider: 01:39 Initial Comments This 43-year-old presents to the emergency room with complaints of cough productive of green sputum. She also vomited once yesterday. She reports being diagnosed with bronchitis about 2 weeks ago. She completed a course of doxycycline for 10 days and prednisone for 5 days. Shortness of breath as rebounded since then. Patient continues to smoke. She is afebrile. She does not use any inhaled medications. Allergies and Home Medications Allergies Coded Allergies: methocarbamol (Unverified Allergy, Unknown, 10/13/15) fentanyl (Verified Adverse Reaction, Unknown, 11/19/13) Home Medications Albuterol/Ipratropium 4 Gm Aero, 1 PUFF IH QID PRN for SHORTNESS OF BREATH, (Reported) Amoxicillin/Potassium Clav 1 Each Tablet, 1 EACH PO BID Prescribed by: HECTOR MONSIVAIS on 11/10/18 1617 Brexpiprazole 2 Mg Tablet, 2 MG PO HS, (Reported) Buspirone HCl 5 Mg Tablet, 5 MG PO BID, (Reported) Levothyroxine Sodium 150 Mcg Tablet, 150 MCG PO DAILY, (Reported) Lisinopril 2.5 Mg Tablet, 2.5 MG PO DAILY, (Reported) Lovastatin 20 Mg Tablet, 20 MG PO DAILY, (Reported) Metformin HCl 500 Mg Tab.er.24h, 500 MG PO BID WITH MEALS, (Reported) Nabumetone 500 Mg Tablet, 500 MG PO BID WITH MEALS, (Reported) Tizanidine HCl 4 Mg Tablet, 8 TAB PO TID, (Reported) TAKES 2 (4MG) TABLETS Trazodone HCl 150 Mg Tablet, 150-300 MG PO HS, (Reported) Vortioxetine Hydrobromide 20 Mg Tablet, 20 MG PO HS, (Reported) Patient Home Medication List Home Medication List Reviewed: Yes Review of Systems Review of Systems Constitutional: no symptoms reported EENTM: no symptoms reported Respiratory: see HPI Cardiovascular: no symptoms reported Gastrointestinal: no symptoms reported Genitourinary: no symptoms reported : No Musculoskeletal: no symptoms reported Skin: no symptoms reported Psychiatric/Neurological: No Symptoms Reported Hematologic/Lymphatic: No Symptoms Reported Past Wrpojml-Vmfdng-Wttjhs Hx Past Med/Social Hx: Reviewed Nursing Past Med/Soc Hx Patient Social History Alcohol Use: Denies Use Recreational Drug Use: Yes Drug of Choice: CANNABIS Smoking Status: Current Everyday Smoker Type Used: Cigarettes 2nd Hand Smoke Exposure: Yes Recent Foreign Travel: No Contact w/Someone Who Travel: No Recent Infectious Disease Expo: No Recent Hopitalizations: No Physical Abuse: No Sexual Abuse: No Mistreated: No Fear: No Immunizations Up To Date Tetanus Booster (TDap): Unknown Date of Influenza Vaccine: Feb 08, 2017 Seasonal Allergies Seasonal Allergies: No Past Medical History Surgeries: Yes (RIGHT LUNG BIOPSY) Gallbladder, Hysterectomy, Oophorectomy, Orthopedic, Tracheostomy Respiratory: Yes (surgical bx for pneumonia/on ventilator WITH TRACH 1996, WEARS OXYGEN AT 2 ) Asthma, Pneumonia, Chronic Bronchitis, Sleep Apnea, COPD Currently Using CPAP: No Currently Using BIPAP: No Cardiac: Yes High Cholesterol, Hypertension Neurological: Yes (lumbar neural foraminal stenosis) Headaches /Migraines 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 No Pertinent Family Hx Physical Exam Vital Signs Vital Signs - First Documented 04/14/19 01:29 Temp 36.6 Pulse 71 Resp 17 B/P (MAP) 113/63 (80) Pulse Ox 96 O2 Delivery Room Air Capillary Refill : Less Than 3 Seconds Height, Weight, BMI Height: 5'9.00" Weight: 247lbs. 0.0oz. 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 Norm as Tested Skin: Normal Color, Warm/Dry Progress/Results/Core Measures Suspected Sepsis Recent Fever Within 48 Hours: No Infection Criteria Present: None New/Unexplained Altered Menta: No Sepsis Screen: No Definite Risk SIRS Temperature: Pulse: 71 Respiratory Rate: 17 Blood Pressure 113 /63 Mean: 80 Results/Orders My Orders Orders - QIANA MARTINEZ MD Chest Pa/Lat (2 View) (04/14/19 01:44) Rx-Albuterol Inhaler (Rx-Proair) (04/14/19 01:44) Vital Signs/I&O 04/14/19 04/14/19 04/14/19 01:29 01:44 02:37 Temp 36.6 36.6 Pulse 71 71 Resp 17 17 B/P (MAP) 113/63 (80) 113/63 (80) Pulse Ox 96 98 O2 Delivery Room Air Room Air Room Air Capillary Refill : Less Than 3 Seconds Blood Pressure Mean: 80 POS Progress Note : Progress Note Vital signs were unremarkable. Chest x-ray was also unremarkable. Albuterol inhaler was dispensed. Patient reports she has another kind of inhaler that she cannot figure out how to use, so she has not been using any inhaled treatments at home. The importance of smoking cessation was stressed. Diagnostic Imaging Diagonstic Imaging: Xray Plain Films/CT/US/NM/MRI: chest Comments Chest x-ray viewed by me. Report not yet available. No acute abnormalities appreciated. Departure Impression Primary Impression: COPD exacerbation Disposition: HOME, SELF-CARE Condition: Improved Departure-Patient Inst. Decision time for Depature: 02:29 Referrals: [facility] (PCP/Family) Primary Care Physician Patient Instructions: Exacerbation of COPD, Quitting Smoking Add. Discharge Instructions: Use your inhaler as prescribed for shortness of breath and wheezing. You may use the nebulizer for more robust treatment at home. Work on quitting smoking quickly and completely. This is the best thing you can do for your overall health and to reduce respiratory symptoms. Please follow-up with your primary care provider as soon as possible. Discuss smoking cessation with your doctor. Bring your previously prescribed inhaler with you to your appointment for instructions on usage. Return to the ER if you have worsening symptoms despite use of your inhaler/nebulizer and smoking reduction. All discharge instructions reviewed with patient and/or family. Voiced understanding. Copy Copies To 1: BON PORTER JOSHUA T MD Apr 14, 2019 02:32 POS
[2019-04-14 02:37] VITALS: BP 113/63
--- NOTE | 2019-04-14 07:04 | Diagnostic Imaging Report ---
INDICATION: Cough x1 month with shortness of breath. Comparison with 07/13/2018. FINDINGS: PA and lateral views. The lungs are well aerated. Patchy infiltrate noted right lung base on the PA view is unchanged. This probably was in the right middle lobe. The lungs are otherwise clear. There is no air-trapping. The heart is not enlarged. There is no pulmonary edema. No hilar adenopathy. No pneumothorax. No bony abnormalities. IMPRESSION: Persistent patchy infiltrate within the right middle lobe. Dictated by: Dictated on workstation # [id number]
== END 2019-04-14 02:37 | disposition home or self-care (01) ==
LOC: EDUNIT# 00:46 → ER 00:48
DX: J44.1 Chronic obstructive pulmonary disease with (acute) exacerbation (principal); I10 Essential (primary) hypertension; E11.9 Type 2 diabetes mellitus without complications; E78.00 Pure hypercholesterolemia, unspecified; J45.909 Unspecified asthma, uncomplicated; F41.9 Anxiety disorder, unspecified; F32.9 Major depressive disorder, single episode, unspecified; G43.909 Migraine, unspecified, not intractable, without status migrainosus; E03.9 Hypothyroidism, unspecified; K21.9 Gastro-esophageal reflux disease without esophagitis; F17.210 Nicotine dependence, cigarettes, uncomplicated; Z93.0 Tracheostomy status; Z90.710 Acquired absence of both cervix and uterus; Z88.5 Allergy status to narcotic agent; Z88.8 Allergy status to other drugs, medicaments and biological substances; Z79.84 Long term (current) use of oral hypoglycemic drugs
CPT/HCPCS: 71046

== ENCOUNTER 2019-09-07 15:12 | Emergency (ER) | payer SELFPAY ==
[~2019-09-07] VITALS: Ht 175 cm; Wt 105.0 kg
[~2019-09-07 15:12] MED LIST changes: +MECL-172 PO; -MECL12.579 PO; -TRAZ-190 PO; +TRAZ-227 PO
--- OUTSIDE RECORDS SUMMARY | 2019-09-07 15:17 | XMS REPORT | Clinical Summary ---
Author Author [facility] Address Unknown Phone Unavailable Care Team Providers Care Personal Banking Advisor Name Role Phone Susy Butler [employer] PCP Source Comments Some departments are not documenting in the electronic medical record. If you d o not see the information that you expected, contact Release of Information in [facility] Health Information Management department at [phone] for further assistan ce in locating additional records.[facility] Allergies Not on File Medications Not [...] Health Maintenance Due Date Last Done Comments HIV SCREENING 12/09/1990 DTAP/TDAP VACCINES ( - 12/09/1993 Tdap) HEPATITIS C SCREENING 12/09/1993 PHYSICAL (COMPREHENSIVE) 12/09/1993 EXAM CERVICAL CANCER SCREENING 12/09/1996 BREAST CANCER SCREENING 2015 INFLUENZA VACCINE 02/10/2020 Results Not on filefrom Last 3 Months Insurance Type Payer Benefit Subscriber ID Effective Phone Address Plan / Dates Group Medicaid [facility] [place]ICAID [place] 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
--- OUTSIDE RECORDS SUMMARY | 2019-09-07 15:19 | XMS REPORT ---
Author Author [employer]. Organization [employer] Address [address] [address] Care Team Providers Care Insulation Supervisor Name Role Phone BRENDA WHITEHEAD Unavailable Unavailable MADL, RICARDO Unavailable Unavailable CHRISTIANO CARRERA Unavailable Unavailable BON PORTER Unavailable [facility] Unavailable [phone] ASH FREEDMAN Unavailable ELEUTERIO DUARTE Unavailable Unavailable ESTHER PARKER Unavailable Unavailable HEMA CUTLER Unavailable [facility] Unavailable BON PORTER Unavailable MADL, RICARDO Unavailable MADL, RICARDO Unavailable MADL, RICARDO Unavailable MADL, RICARDO Unavailable BRENDA Galindo Unavailable [facility] Unavailable [phone] MADL, RICARDO Unavailable MADL, RICARDO Unavailable MADL, RICARDO Unavailable MADL, RICARDO Unavailable MADL, RICARDO Unavailable BON PORTER Unavailable NICKY BRAVO Unavailable MADL, RICARDO Unavailable ANGLETON, HARISH Unavailable SY PÉREZ Unavailable MADL, RICARDO Unavailable ANGLETON, HARISH Unavailable ANGLETON, HARISH Unavailable ANGLETON, HARISH Unavailable ANGLETON, HARISH Unavailable MADL, RICARDO Unavailable MADL, RICARDO Unavailable MADL, RICARDO Unavailable ANGLETON, HARISH Unavailable MADL, RICARDO Unavailable ANGLETON, HARISH Unavailable ANGLETON, HARISH Unavailable NANDO MANCILLA Unavailable NANDO MANCILLA Unavailable MADL, RICARDO Unavailable ANGLETON, HARISH Unavailable MADL, RICARDO Unavailable DIAS, JAIMA Unavailable DIAS, JAIMA Unavailable ANGLETON, HARISH Unavailable MADL, RICARDO Unavailable TACOS WALTERS, SHAISTA Wolfe Unavailable Unavailable EKATERINA MADSEN DO Unavailable Unavailable BLANCA ANDERSON, KUSHAL He Unavailable Unavailable RITO ANDERSON, EVON Santana Unavailable Unavailable MAREN HUDSON INFRASTRUCTURE TECH Unavailable Unavailable ARYA ANDERSON, RIANNA Clay Unavailable Unavailable HECTOR MONSIVAIS INFRASTRUCTURE TECH Unavailable Unavailable MARY ANDERSON, JEREMIAS Kemp Unavailable Unavailable MANPREET RUSHING, RIO Kemp Unavailable Unavailable DIAS, JAIMA Unavailable MICHELLE RUIZ Unavailable ASH FREEDMAN Unavailable LEIDY GALEANA DO Unavailable Unavailable DIAS, JAIMA Unavailable MADL, RICARDO Unavailable ANGLETON, HARISH Unavailable ASH FREEDMAN Unavailable DIAS, JAIMA Unavailable DIAS, JAIMA Unavailable DIAS, JAIMA Unavailable DIAS, JAIMA Unavailable GABRIELA DIASIMA Unavailable [facility] [phone] Migration, Doctor Unavailable Unavailable Migration, Doctor Unavailable Unavailable Migration, Doctor Unavailable Unavailable Migration, Doctor Unavailable Unavailable Migration, Doctor Unavailable Unavailable Migration, Doctor Unavailable Unavailable Migration, Doctor Unavailable Unavailable Migration, Doctor Unavailable Unavailable Migration, Doctor Unavailable Unavailable Migration, Doctor Unavailable Unavailable Migration, Doctor Unavailable Unavailable Migration, Doctor Unavailable Unavailable Migration, Doctor Unavailable Unavailable Migration, Doctor Unavailable Unavailable Migration, Doctor Unavailable Unavailable Migration, Doctor Unavailable Unavailable JUAN ANDERSON, QIANA Snell Unavailable Unavailable HECTOR MONSIVAIS APRN Unavailable Unavailable PHILIPPE GOINS Unavailable Unavailable Migration, Doctor Unavailable Unavailable GERMAN BON Unavailable BRENDA Galindo Unavailable MADL, RICARDO Unavailable MADL, RICARDO Unavailable MADL, RICARDO Unavailable BRENDA Galindo Unavailable CHRISTIANO CARRERA Unavailable CHRISTIANO CARRERA ANN Unavailable CHRISTIANO CARRERA ANN Unavailable CHRISTIANO CARRERA ANN Unavailable MADL, RICARDO Unavailable MADL, RICARDO Unavailable MADL, RICARDO Unavailable MADL, RICARDO Unavailable MADL, RICARDO Unavailable MADL, RICARDO Unavailable CHRISTIANO CARRERA ANN Unavailable MADL, RICARDO Unavailable ANTONIO MIRAMONTES MD Unavailable Unavailable CHRISTIANO CARRERA Unavailable BRENDA Galindo Unavailable MADL, RICARDO Unavailable MADL, RICARDO Unavailable MADL, RICARDO Unavailable MADL, RICARDO Unavailable MADL, RICARDO Unavailable MADL, RICARDO Unavailable MADL, RICARDO Unavailable MADL, RICARDO Unavailable MADL, RICARDO Unavailable MADL, RICARDO Unavailable MADL, RICARDO Unavailable [facility] MADL, RICARDO Unavailable MADL, RICARDO Unavailable MADL, RICARDO Unavailable MADL, RICARDO Unavailable Migration, Doctor Unavailable Unavailable MADL, RICARDO Unavailable MADL, RICARDO Unavailable CHRISTIANO CARRERA Unavailable ROHARISH MADRIGAL Unavailable Migration, Doctor Unavailable Unavailable Migration, Doctor Unavailable Unavailable Migration, Doctor Unavailable Unavailable Migration, Doctor Unavailable Unavailable Migration, Doctor Unavailable Unavailable Migration, Doctor Unavailable Unavailable MADL, RICARDO Unavailable CHRISTIANO CARRERA Unavailable ALAYNA LOZANO Unavailable CHRISTIANO CARRERA Unavailable Migration, Doctor Unavailable Unavailable Migration, Doctor Unavailable Unavailable Migration, Doctor Unavailable Unavailable Migration, Doctor Unavailable Unavailable ALAYNA LOZANO Unavailable Migration, Doctor Unavailable Unavailable Migration, Doctor Unavailable Unavailable MADL, RICARDO Unavailable CHRISTIANO CARRERA Unavailable MADL, RICARDO Unavailable MADL, RICARDO Unavailable Allergies The data below is from unstructured sourcesNo Known Allergies No Known Allergies No Known Allergies No Known Allergies No Known Allergies No Known Allergies No Known Allergies Unknown Allergies Unknown AllergiesNo Known Allergies No Known Allergies No Known Allergies No Known Allergies No Known Allergies No Known Allergies No Known Allergies No Known Allergies No Known Allergies No Known Allergies No Known Allergies No Known Allergies No Known Allergies No Known Allergies No Known Allergies No Known Allergies No Known Allergies No Known Allergies No Known Allergies No Known Allergies No Known Allergies No Known Allergies Unknown Allergies Unknown Allergies Unknown Allergies Unknown Allergies No Information No Information No Information No Information No Information No Information No Information No Information No Information No Information No Information No Information No Information No Information No Information No Information No Information No Information No Information No Information No Information No Information No Information No Information No Information No Information No Information No Information No Information No Information No Information No Information No Information No Information No Information No Information No Information No Information No Information No Information No Information No Information No Information No Information No Information No Information No Information No Information No Information No Information No Information No Information No Information No Information No Information No Information No Information No Information No Information No Information No Information No Information No Information No Information No Information No Information No Information No Information No Information No Information No Information No Information No Information No Information No Information No Information No Information No Information No Information No Information No Information No Information No Information No Information No Information No Information No Information No Information No Information No Information No Information No Information No Information No Information No Information No Information No Information No Information No Information No Information No Information No Information No Information No Information No Information No Information No Information No Information No Information No Information No Information No Information No Information No Information No Information No Information No Information No Information No Information No Information No Information No Information No Information No Information No Information No Information No Information No Information No Information No Information No Information No Information No Information No Information No Information No Information No Information No Information No Information No Information No Information No Information No Information No Information No Information No Information No Information No Information No Information No Information No Information No Information No Information No Information No Information No Information No Information No Information No Information No Information No Information No Information No Information No Information No Information No Information No Information No Information No Information No Information No Information No Information No Information No Information No Information No Information No Information No Information No Information No Information No Information No Information No Information No Information No Information No Information No Information No Information Medications Current Medications Medication Ingredient Drug Dose Dates Status Sig Sig Care Class(es) (Normalized) (Original) Provid er no Blood no 01-09-20 Active no Blood no information Glucose information 17 information Glucose name (1 source.) Monitor Monitor (no System System phone) w/Device w/Device DX- Translation E11.9 s: [ Blood fasting and Glucose 2 hrs after Monitor 1 meal 2-3 System times w/Device] weekly. test blood sugar Dec, Active carbamide carbamide no 5 01-08-20 Active no Debrox 6.5 % no peroxide 65 peroxide information drop(s 18 - information Otic T wice a name mg/ml otic Translation ) 01-12-20 day 5 drops (no solution (1 s: [ Debrox 18 into phone) source.) 6.5 %] affected ear 12h Dec, 2 Jan, 2018 4 day(s) Active hydrocortis hydrocortis Aminoglycos 4 Active no Neomycin -Lucho no one 10 one / aysha drop(s information ymyxin-HC name mg/ml / neomycin / Antibacteri ) [id number] (no neomycin polymyxin b al, Otic Three phone) 3.5 mg/ml / Translation Polymyxin-c times a day polymyxin b s: [ lass 4 drops into [address] Neomycin-Po Antibacteri affected ear unt/ml otic lymyxin-HC al, 8h 10 days suspension [id number] Corticoster Active (1 source.) ] oid levETIRAcet levETIRAcet no 750 mg Active take 1 Keppra 750 no am 750 mg am information tablet by MG Orally name oral tablet Translation mouth twice Twice a day (no (1 source.) s: [ Keppra daily 1 tablet 12h phone) 750 MG] 30 day(s) Active no Nebulizer - no 07-18-19 Active no Nebulizer - no information Translation information 18 information as dir ected name (1 source.) s: [ Jul, (no Nebulizer Active phone) -] no Oxygen no Active no Oxygen no information information information Active name (1 source.) (no phone) Completed/Discontinued Medications Medication Ingredient Drug Dose Dates Status Sig Sig Care Class(es) (Normalized) (Original) Provid er no ?Arthritis no 07-23-19 Complete no ?Arthritis no information Med information 15 d information Med name (1 source.) Discontinued (no NOT phone) APPLICABLE Twice A Day July 22, 2014 no ?Muscle no 07-23-19 Complete no ?Muscle no information Relaxant information 15 d information Relax ant name (1 source.) Discontinued (no NOT phone) APPLICABLE Three Times A Day July 22, 2014 no Albuterol no 6.7 g 04-16-20 Complete take 6.7 g Albu terol Gretch information Sulfate information 16 - d by Sulfate en L (6 (Proventil 04-17-20 inhalation (Proventil [place] sources.) Hfa) 6.7 Gm 16 every four Hfa) 6.7 Gm (no Hfa.aer.ad, hours as Hfa.aer.ad, phone) 2 Puff needed 2 Puff Respiratory Respiratory (Inhalation (Inhalation) ) Every 4HRS as needed for Shortness Of Breath 04/16/16 Discontinued 6.7 g 04-23-2016 Completed take Albutero (no 6.7 g l phone) by Sulfate inhala (Provent tion il Hfa) every 6.7 Gm four Hfa.aer. hours ad, 2 Puff Respirat ory (Inhalat ion) Every 4HRS Disconti nued amoxicillin Amoxicillin Penicillin- 11-11-19 Complete no Alesha xicillin/ no 875 mg / / class 19 - d information Potassium name clavulanate Clavulanate Antibacteri 11-11-19 Clav (no 125 mg oral al 19 - Discontinued phone) tablet (1 11-11-19 1 ORAL Twice source.) 19 A Day 14 November 10, 2018 4:17pm (One-Time) no Ascorbate no 02-13-20 Complete no Ascorbate no information Calcium information 18 d information Calciu m name (1 source.) Discontinued (no 500 ORAL phone) Daily February 12, 2018 no Ascorbate no 500 mg 02-13-20 Complete take 1 Ascorbat e (no information Calcium information 18 d tablet by Calcium phone) (4 (Vitamin C) mouth once (Vitamin C) sources.) 500 Mg daily 500 Mg Tablet, 500 Tablet, 500 Mg Oral Mg Oral Daily Discontinued 12 hr dextrometho Uncompetiti 07-15-19 Complete no Guaifene sin/ no dextrometho rphan / ve 18 - d information Dextromethor name rphan guaiFENesin N-methyl-D- 07-17-19 kimble (no hydrobromid aspartate 18 Discontinued phone) e 60 mg / Receptor 1 ORAL Twice guaiFENesin Antagonist, A Day 20 10 1200 mg Sigma-1 July 14, extended Agonist 2017 11:53pm release July 16, oral tablet 2018 (5 sources.) dextrometho Dextrometho Phenothiazi 3 07-14-19 Complete no Promethazine no rphan rphan / ne, mg/mL 19 - d information /Dextrome tho name hydrobromid Promethazin Uncompetiti 11-11-19 rphan (no e 3 mg/ml / e ve 19 Discontinued phone) promethazin N-methyl-D- 5 ORAL Every e aspartate 4HRS 60 hydrochlori Receptor July 13, de 1.25 Antagonist, 2019 1:11pm mg/ml oral Sigma-1 November 10, solution (3 Agonist 2019 sources.) meclizine meclizine Antiemetic 12.5 12-29-19 Complete take 1 M eclizine Rashid hydrochlori Translation mg 18 - d tablet by Hcl 12.5 Mg J de 12.5 mg s: [ 11-11-19 mouth every Tablet 12.5 Nimisha oral tablet Meclizine 19 six hours as Mg ORAL (no (9 HCl 12.5 needed for Every 6 phone) sources.) MG, dizziness Hours as Meclizine needed for HCl 12.5 Dizziness 14 MG] Days 20 Tab 12/28/17 12.5 mg Suspended take 1 Meclizin no name tablet e HCl (no by 12.5 MG phone) mouth Orally 2 twice times a daily day 1 tablet 12h 30 days Not-Taki ng Methylpredn methylpredn Corticoster 07-16-19 Complete no Met hylpredni no isolone (5 isoLONE oid 18 - d information solone name sources.) 07-18-19 Discontinued (no 18 4 ORAL As phone) Directed 1 July 14, 2017 11:53pm July 17, 2017 4 mg 07-14-2017 Completed no Methylpr Leidy K - inform ross Galeana (no 07-17-2017 ation ne phone) (Medrol) 4 Mg Tab.ds.p k, 4 Mg Oral As Directed 07/14/17 Disconti nued nitrofurant NITROFURANT Nitrofuran 25 mg 08-17-19 Complete no Nitrofuranto Leidy K oin, OIN, Antibacteri 18 - d information in [place] macrocrysta MACROCRYSTA al 02-13-20 Monohyd/M-Cr (no ls 25 mg / LS / 18 yst phone) nitrofurant Nitrofurant (Macrobid oin, oin, 100 Mg monohydrate Monohydrate Capsule) 100 75 mg oral Mg Capsule, capsule (4 100 Mg Oral sources.) Twice A Day 08/16/17 Discontinued no Thompson 3 no 02-13-20 Complete no Thompson 3 no information Polyunsat information 18 d information Poly unsat name (1 source.) Fatty Acids Fatty Acids (no Discontinued phone) 1000 ORAL Daily February 12, 2018 no Thompson 3 no 02-13-20 Complete take 3 Thompson 3 (no information Polyunsat information 18 d capsules by Poly unsat phone) (4 Fatty Acids mouth once Fatty Acids sources.) (Fish Oil daily (Fish Oil 1,000 Mg 1,000 Mg Capsule) Capsule) 1,000 Mg 1,000 Mg Cap, 1000 Cap, 1000 Mg Mg Oral Oral Daily Discontinued no Oxycodone no 12-25-19 Complete take 5-325 Oxycodone J oshua information Hcl/Acetami information 16 - d tablets by Hcl /Acetamin T (4 nophen 02-26-20 mouth every ophen Bruegg sources.) (Percocet 17 four hours (Percocet emann 5-325 Mg as needed 5-325 Mg (no Tablet) 1 for pain, Tablet) 1 phone) Each then take 1 Each Tablet, Tablet, 1 tablet by 1 Each Oral Each Oral mouth as Every 4HRS needed for as needed pain for Pain 12/25/15 Discontinued pantoprazol pantoprazol Proton Pump 40 mg 02-13-20 Complete no Pantoprazole no e 40 mg e Inhibitor 18 - d information Sodium name delayed 11-11-19 Discontinued (no release 19 40 ORAL phone) oral tablet Daily 10 (February 12, sources.) 2017 10:22pm November 10, 2018 Problems Active Problems Problem Normalized Date of Normalized Normalized Provider Fac ility Classification Problem(s) Problem Problem Problem Sta tus Onset/Resoluti Duration on Residual Acquired Episodic Active QIANA Not Available codes; absence of JUAN , (93095) unclassified both cervix MD (12 sources.) and uterus Residual Acquired Episodic Active LEIDY KERVIN , DO Not Avai lable codes; absence of (83502) unclassified other organs (2 sources.) Allergic Allergy status Episodic Active LEIDY KERVIN , DO No t Available reactions (20 to other (02624) sources.) drugs, medicaments and biological substances status Translations: [ ALLERGY STATUS TO ANALGESIC AGENT STATUS, ALLERGY STATUS TO NARCOTIC AGENT STATUS, DIARRHEA, ALLERGY STATUS TO OTH DRUG/MEDS/BIOL SUB] Other Body Mass Chronic Active KUSHAL RIOS , Not Елена ilable nutritional; Index MD (79925) endocrine; and 36.0-36.9, metabolic adult disorders (3 sources.) Other Body Mass Chronic Active KUSHAL RIOS , Not Елена ilable nutritional; Index MD (01484) endocrine; and 38.0-38.9, metabolic adult disorders (5 sources.) Other Body Mass Chronic Active KUSHAL RIOS , Not Елена ilable nutritional; Index MD (02123) endocrine; and 39.0-39.9, metabolic adult disorders (6 sources.) Other Body Mass Chronic Active KUSHAL RIOS , Not Елена ilable nutritional; Index MD (86664) endocrine; and 40.0-44.9, metabolic adult disorders (6 sources.) NEGATED Body Mass Chronic Active no name no informati on no Index information (4 40.0-44.9, sources.) adult Complication Breakdown Episodic Active RASHAUN BORGESDIO , Not A vailable of device; (mechanical) (52092) implant or of implanted graft (4 electronic sources.) neurostimulato r of spinal cord electrode (lead), initial encounter Other Change in Episodic Active RIO CASE , Not Елена ilable gastrointestin bowel habit DO (40704) al disorders Translations: (20 sources.) [ - Change in bowel habits R19.4, - Change in bowel habits R19.4] Biliary tract Chronic Episodic Active RIO CASE , Not Available disease (18 cholecystitis DO (86379) sources.) Translations: [ DIS OF GALLBLADDER NEC] Other nervous Chronic pain Chronic Active KUSHAL RIOS , Not Available system syndrome (15726) disorders (26 sources.) Other Constipation Episodic Active ASH GAULT Via Chr isti gastrointestin Translations: [address] [facility] al disorders [ [place] (6 sources.) Constipation] (30742) Other Constipation, Episodic Active QIANA Not Avai lable gastrointestin unspecified JUAN , (81605) al disorders (7 sources.) Other lower Cough Episodic Active SHAISTA Not Availab le respiratory SELENA CHACKO (50389) disease (14 sources.) Other lower Cough Episodic Active JEREMIAS Not Availab le respiratory MARY , MD (46770) disease (8 sources.) 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 RASHID MARXER Not Available failure; respirator (12750) insufficiency; [ventilator] arrest (12 status sources.) Translations: [ DEPENDENCE ON SUPPLEMENTAL OXYGEN] Joint Derangement of Chronic Active [facility] disorders and right knee [facility] dislocations; [address] Hospital trauma-related (27687) (1 source.) Epilepsy; Epilepsy, Chronic Active ANTONIO FE Not Avai lable convulsions (6 unspecified, , (43778) sources.) not intractable, without status epilepticus Essential Essential Chronic Active RASHAUN PHILLIPS , Not Avai lable hypertension (primary) (21111) (20 sources.) hypertension Esophageal Gastro-esophag Chronic Active LEIDY KERVIN , DO N ot Available disorders (31 eal reflux (11160) sources.) disease without esophagitis Fluid and Hypokalemia Episodic Active LEIDY KERVIN , DO Not A vailable electrolyte Translations: (92615) disorders (10 [ Hypokalemia] sources.) Open wounds of Laceration Episodic Active SHAISTA Not Av ailable head; neck; without SELENA CHACKO (77825) and trunk (24 foreign body sources.) of scalp, initial encounter Translations: [ LACERATION WITHOUT FOREIGN BODY OF SCALP, PUNCTURE WOUND WITHOUT FOREIGN BODY OF L, Laceration of scalp] Other USP Episodic Active HECTOR MONSIVAIS Not Availa ble aftercare (7 (current) use (32029) sources.) of inhaled steroids 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 Episodic Active HECTOR MONSIVAIS [facility] Via aftercare (3 (current) use Traci sources.) of oral Hospital - hypoglycemic [place] drugs (46804) 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 Episodic Active LEIDY DELGADOO , DO Not Елена ilable aftercare (23 (current) use (56172) sources.) of systemic steroids Other Long-term Episodic Active KUSHAL RIOS , Not Елена ilable aftercare (24 (current) use (72234) sources.) of other medications Gastrointestin Melena Episodic Active RIO CASE , Not Available al hemorrhage DO (01955) (9 sources.) Other Morbid Chronic Active NANDO MANCILLA Not Avail able nutritional; (severe) , (10356) endocrine; and obesity due to metabolic excess disorders (20 calories sources.) Translations: [ - Morbid (severe) obesity due to excess calories E66.01, - Morbid (severe) obesity due to excess calories E66.01] Other Myalgia and Episodic Active KUSHAL RIOS , Not A vailable connective myositis, (51898) tissue disease unspecified (24 sources.) Substance-rela Nicotine Chronic Active LEIDY GALEANA , DO Not Available yoselin disorders dependence, (04618) (24 sources.) cigarettes, uncomplicated Translations: [ - Tobacco use disorder F17.200, TOBACCO USE DISORDER, - Tobacco use disorder F17.200, CANNABIS ABUSE, UNCOMPLICATED, CANNABIS ABUSE, UNCOMPLICATED, Current smoker] Other Obesity, Chronic Active KINZA AWTTS , Not Avai lable nutritional; unspecified (26136) endocrine; and metabolic disorders (12 sources.) Residual Obstructive Chronic Active ANTONIOPRISCILLA MIRAMONTES Not Av ailable codes; sleep apnea , (20028) unclassified (adult) (6 sources.) (pediatric) Other nervous Other chronic Chronic Active RIANNA KOENIG , Not Available system pain (56639) disorders (26 sources.) Spondylosis; Other no information Active KUSHAL RIOS , Not Available intervertebral intervertebral (93000) disc disc disorders; degeneration, other back lumbar region problems (31 Translations: sources.) [ LOW BACK PAIN, DISORDERS OF SACRUM, LUMBOSACRAL SPONDYLOSIS, LUMB/LUMBOSAC DISC DEGEN, LUMBAGO, SCIATICA, SACROILIITIS NEC] Other upper Other seasonal Chronic Active [facility] respiratory allergic [facility] disease (20 rhinitis of [place] sources.) Translations: [place] (37511) [ - Acute seasonal allergic rhinitis, unspecified trigger J30.2, - Acute seasonal allergic rhinitis, unspecified trigger J30.2, - Seasonal allergies J30.2] Other Pain in left Episodic Active SHAISTA Not Avail able non-traumatic knee SELENA CHACKO (25320) joint disorders (9 sources.) Other injuries Personal Episodic Active LEIDY GALEANA , DO Not Available and conditions history of (07217) due to (healed) external traumatic causes (3 fracture sources.) Bacterial Personal Episodic Active QIANA Not Available infection (21 history of BRUEGGEMANN , (10045) sources.) Methicillin MD resistant Staphylococcus aureus infection Other Personal Episodic Active HECTOR MONSIVAIS Not Availab le gastrointestin history of (00478) al disorders other diseases (3 sources.) of the digestive system Other Personal Episodic Active LEIDY KERVIN , DO Not Avai lable connective history of (32527) tissue disease other diseases (10 sources.) of the musculoskeleta l system and connective tissue Translations: [ MYALGIA AND MYOSITIS NOS] Pneumonia (5 Pneumonia no information Active ASH FREEDMAN Vi a Traci sources.) [address] [place] [address] (69054) Pneumonia (23 Pneumonia, Episodic Active NANDO MANCILLA Not Available sources.) unspecified , (47333) organism Translations: [ Pneumonia, Right upper lobe pneumonia] Residual Presence of Chronic Active JONNY BERNOT Not Av ailable codes; functional (47135) unclassified implant, (4 sources.) unspecified Other lower Respiratory Episodic Active RASHID NIMISHA Not A vailable respiratory disorder, (38819) disease (14 unspecified sources.) Septicemia (5 Septicemia no information Active ASH FREEDMAN Via Traci sources.) [address] [place] [address] (92066) Other lower Shortness of Episodic Active JEREMIAS Not Елена ilable respiratory breath MD MARY (43909) disease (18 sources.) Other lower Shortness of Episodic Active RIANNAHEIDI KOENIG No t Available respiratory breath (02621) disease (8 sources.) Other lower Snoring Episodic Active ANTONIO FE Not Елена ilable respiratory , (63112) disease (6 sources.) Other Synovial cyst Episodic Active [facility]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 department no information no name (no sameera ne) no organization name - patient visit (no phone) 11-10-2018 09-27-2018 Emergency department no information HECTOR He APRN BA SHUN no organization name - patient visit Work Phone: (no phone) 09-27-2018 07-13-2018 Emergency department no information JONNY SÁNCHEZ ( no no organization name - patient visit phone) (no phone) 07-13-2018 02-12-2018 Emergency department no information HECTOR He APRN BA SHUN no organization name - patient visit Work Phone: (no phone) 02-12-2018 12-27-2017 Emergency department no information no name (no sameera ne) no organization name - patient visit (no phone) 12-28-2017 08-16-2017 Emergency department no information no name (no sameera ne) no organization name - patient visit (no phone) 08-16-2017 07-31-2017 Emergency department no information no name (no sameera ne) no organization name - patient visit (no phone) 08-01-2017 07-14-2017 Emergency department no information no name (no sameera ne) no organization name - patient visit (no phone) 07-15-2017 05-10-2017 Emergency department no information no name (no sameera ne) no organization name - patient visit (no phone) 05-10-2017 10-12-2013 Emergency department no information no name (no sameera ne) no organization name - patient visit (no phone) 10-12-2013 05-22-2013 Emergency department no information no name (no sameera ne) no organization name - patient visit (no phone) 05-22-2013 01-13-2012 Emergency department no information no name (no sameera ne) no organization name - patient visit (no phone) 01-13-2012 07-15-2017 Evaluation and no information no name (no phone) n o organization name - management of (no phone) 07-17-2017 inpatient 11-19-2013 Evaluation and no information no name (no phone) n o organization name - management of (no phone) 11-20-2013 inpatient 12-27-2017 Patient encounter no information no name (no phone) no organization name (no phone) 12-08-2017 Patient encounter no information no name (no phone) no organization name (no phone) 10-29-2017 Patient encounter no information no name (no phone) no organization name (no phone) 10-14-2017 Patient encounter no information no name (no phone) no organization name (no phone) 09-16-2017 Patient encounter no information no name (no phone) no organization name (no phone) 08-18-2017 Patient encounter no information no name (no phone) no organization name (no phone) 08-16-2017 Patient encounter no information no name (no phone) no organization name (no phone) 08-04-2017 Patient encounter no information no name (no phone) no organization name (no phone) 07-31-2017 Patient encounter no information no name (no phone) no organization name (no phone) 07-22-2017 Patient encounter no information no name (no phone) no organization name (no phone) 07-15-2017 Patient encounter no information no name (no phone) no organization name - (no phone) 07-17-2017 07-14-2017 Patient encounter no information no name (no phone) no organization name (no phone) 07-14-2017 Patient encounter no information no name (no phone) no organization name (no phone) 06-17-2017 Patient encounter no information no name (no phone) no organization name - (no phone) 09-15-2017 06-12-2017 Patient encounter no information no name (no phone) no organization name (no phone) 04-23-2017 Patient encounter no information no name (no phone) no organization name (no phone) 04-10-2017 Patient encounter no information no name (no phone) no organization name (no phone) 03-21-2017 Patient encounter no information no name (no phone) no organization name (no phone) 03-11-2017 Patient encounter no information no name (no phone) no organization name (no phone) 02-25-2017 Patient encounter no information no name (no phone) no organization name (no phone) 04-26-2016 Patient encounter no information no name (no phone) no organization name - (no phone) 04-26-2016 09-14-2015 Patient encounter no information no name (no phone) no organization name - (no phone) 09-14-2015 12-12-2014 Patient encounter no information no name (no phone) no organization name (no phone) 11-09-2014 Patient encounter no information no name (no phone) no organization name (no phone) 07-28-2014 Patient encounter no information no name (no phone) no organization name - (no phone) 07-28-2014 11-19-2013 Patient encounter no information no name (no phone) no organization name (no phone) 10-25-2013 Patient encounter no information no name (no phone) no organization name (no phone) 09-27-2013 Patient encounter no information no name (no phone) no organization name - (no phone) 09-27-2013 08-30-2013 Patient encounter no information no name (no phone) no organization name - (no phone) 08-30-2013 07-23-2013 Patient encounter no information no name (no phone) no organization name (no phone) 07-16-2013 Patient encounter no information no name (no phone) no organization name - (no phone) 07-16-2013 11-17-2012 Patient encounter no information no name (no phone) no organization name (no phone) 07-20-2012 Patient encounter no information no name (no phone) no organization name (no phone) Patient encounter no information no name (no phone) no organ ization name (no phone) 08-04-2019 Patient encounter no information [facility] D BRISE[facility] (no [facility] phone) [facility] (no phone) 07-22-2019 Patient encounter no information PHILIPPE D BRISEIDA (no [facility] procedure phone) [facility] (no phone) 05-10-2019 Patient encounter no information no name (no phone) no organization name procedure (no phone) 04-16-2019 Patient encounter no information no name (no phone) no organization name procedure (no phone) 04-13-2019 Patient encounter no information no name (no phone) no organization name procedure (no phone) 03-29-2019 Patient encounter no information no name (no phone) no organization name procedure (no phone) 02-23-2019 Patient encounter no information no name (no phone) no organization name - procedure (no phone) 02-24-2019 02-16-2019 Patient encounter no information no name (no phone) no organization name procedure (no phone) 01-26-2019 Patient encounter no information no name (no phone) no organization name procedure (no phone) 01-26-2019 Patient encounter no information no name (no phone) no organization name procedure (no phone) 12-24-2018 Patient encounter no information no name (no phone) no organization name procedure (no phone) 11-19-2018 Patient encounter no information no name (no phone) no organization name procedure (no phone) 11-10-2018 Patient encounter no information no name (no phone) no organization name procedure (no phone) 11-09-2018 Patient encounter no information no name (no phone) no organization name procedure (no phone) 10-22-2018 Patient encounter no information no name (no phone) no organization name - procedure (no phone) 10-23-2018 10-20-2018 Patient encounter no information no name (no phone) no organization name procedure (no phone) 10-14-2018 Patient encounter no information no name (no phone) no organization name procedure (no phone) 09-30-2018 Patient encounter no information no name (no phone) no organization name procedure (no phone) 08-26-2018 Patient encounter no information no name (no phone) no organization name procedure (no phone) 07-29-2018 Patient encounter no information no name (no phone) no organization name procedure (no phone) 07-23-2018 Patient encounter no information no name (no phone) no organization name - procedure (no phone) 07-24-2018 07-13-2018 Patient encounter no information no name (no phone) no organization name procedure (no phone) 06-16-2018 Patient encounter no information ANTONIO MIRAMONTES Wo rk no organization name - procedure (no phone ) 06-17-2018 ANTONIO MIRAMONTES 04-28-2018 Patient encounter no information no name (no phone) no organization name procedure (no phone) 04-22-2018 Patient encounter no information no name (no phone) no organization name - procedure (no phone) 04-22-2018 03-31-2018 Patient encounter no information no name (no phone) no organization name - procedure (no phone) 04-01-2018 03-21-2017 Patient encounter no information no name (no phone) no organization name procedure (no phone) 02-25-2017 Patient encounter no information no name (no phone) no organization name procedure (no phone) no information Encounter for dental no name (no phone) no or ganization name examination and (no phone) cleaning without abnormal findings no information Encounter for other no name (no phone) no org anization name preprocedural (no phone) examination no information Pre-procedural no name (no phone) no organiza tion name laboratory examination (no phone) Medical Equipment The data below is from unstructured sourcesNo Medical Equipment Information available Payers Normalized Payer Value Unknown no information ([id number]) Private Health Insurance no information Evaluation note Note Type Note Facility Evaluation No Assessments Information Available A [facility] note [facility] ([id number]) History general Narrative - Reported Note Type Note Facility History general Narrative - Reported Type Medical cardiovascular disease- liseth ma History Medical Hypothyroidism History Medical chronic low back pain History Medical depression History Medical panic disorder History Medical vitamin D deficiency History Medical Right lung biopsy 01/1996 History Medical Unspecified vitamin D defic iency History Medical Controlled substance agreem ent terminated History Medical spinal stenosis, arthritis, bulging disc's History Medical COPD History Medical sleep as History Medical Seizures History Surgical wisdom teeth extraction History Surgical hysterectomy 2004 History Surgical orthopedic surgery broken right arm 29 08 History Surgical Birthmark removed from left lower leg [address] Case at [facility] 07/2014 History Surgical spinal stimulator - dr. vi vasquez 2016 History Surgical spinal stimulator removal 1 05/2017 History Hospitaliz pneumonia ation History Hospitaliz x1 night for observation af ter spinal stimulator. ation History Hospitaliz Pneumonia 07/2017 ation History [facility] ([id number]) Summary Purpose eClinicalWorks SubmissioneClinicalWorks SubmissioneClinicalWorks SubmissioneClinicalWorks SubmissioneClinicalWorks SubmissioneClinicalWorks SubmissioneClinicalWorks SubmissioneClinicalWorks SubmissioneClinicalWorks SubmissioneClinicalWorks SubmissioneClinicalWorks SubmissioneClinicalWorks SubmissioneClinicalWorks SubmissioneClinicalWorks SubmissioneClinicalWorks SubmissioneClinicalWorks SubmissioneClinicalWorks SubmissioneClinicalWorks SubmissioneClinicalWorks SubmissioneClinicalWorks SubmissioneClinicalWorks SubmissioneClinicalWorks Submission Advance Directives Directive Response Recor ded Date/Time Advance Directives No 3:36pm Health Care Power of Fagot Maker No 12/12/15 3:36pm Organ Donor Yes 12/12/15 3:36pm Resuscitation Status Full Code 12/12/15 3:36pm Directive Response Recor ded Date/Time Advance Directives No 10:47pm Health Care Power of Fagot Maker No 12/25/15 10:47pm Organ Donor Yes 12/25/15 10:47pm Resuscitation Status Full Code 12/25/15 10:47pm Directive Response Recor ded Date/Time Advance Directives No 12:07pm Health Care Power of Fagot Maker No 04/16/16 12:07pm Organ Donor Yes 04/16/16 12:07pm Resuscitation Status Full Code 04/16/16 12:07pm Directive Response Recor ded Date/Time Advance Directives No 6:15am Health Care Power of Fagot Maker No 04/26/16 6:15am Organ Donor Yes 04/26/16 6:15am Resuscitation Status Full Code 04/26/16 6:15am Directive Response Recor ded Date/Time Advance Directives No 2:11pm Health Care Power of Fagot Maker No 10/23/15 2:11pm Organ Donor Yes 10/23/15 2:11pm Resuscitation Status Full Code 10/23/15 2:11pm Directive Response Recor ded Date/Time Advance Directives No 6:11pm Health Care Power of Fagot Maker No 05/31/15 6:11pm Organ Donor Yes 05/31/15 6:11pm Resuscitation Status Full Code 05/31/15 6:11pm Directive Response Recor ded Date/Time Advance Directives No 10:12pm Health Care Power of Fagot Maker No 10/13/15 10:12pm Organ Donor Yes 10/13/15 10:12pm Resuscitation Status Full Code 10/13/15 10:12pm Directive Response Recor ded Date/Time Advance Directives No 7:47pm Health Care Power of Fagot Maker No 11/03/15 7:47pm Organ Donor Yes 11/03/15 7:47pm Directive Response Recor ded Date/Time Advance Directives No 7:16pm Health Care Power of Fagot Maker No 10/17/15 7:16pm Organ Donor Yes 10/17/15 7:16pm Resuscitation Status Full Code 10/17/15 7:16pm Directive Response Recor ded Date/Time Advance Directives No 10:14am Health Care Power of Fagot Maker No 09/06/15 10:14am Organ Donor Yes 09/06/15 10:14am Resuscitation Status Full Code 09/06/15 10:14am Directive Response Recor ded Date/Time Advance Directives No 12:59am Health Care Power of Fagot Maker No 11/14/15 12:59am Organ Donor Yes 11/14/15 12:59am Resuscitation Status Full Code 11/14/15 12:59am Directive Response Recor ded Date/Time Advance Directives No 12:06pm Health Care Power of Fagot Maker No 09/14/15 12:06pm Organ Donor Yes 09/14/15 12:06pm Resuscitation Status Full Code 09/14/15 12:06pm Directive Response Recor ded Date/Time Advance Directives No 7:47pm Health Care Power of Fagot Maker No 11/03/15 7:47pm Organ Donor Yes 11/03/15 7:47pm Resuscitation Status Full Code 11/03/15 7:47pm Directive Response Recor ded Date Advance Directives N 3:48pm Health Care Power of Fagot Maker N 02/07/13 3:48pm Organ Donor N 02/07/13 3 :48pm Directive Response Recor ded Date/Time Advance Directives No 12:59pm Health Care Power of Fagot Maker No 06/01/14 12:59pm Organ Donor No 06/01/14 12:59pm Resuscitation Status Full Code 06/01/14 12:59pm Directive Response Recor ded Date/Time Advance Directives No 8:04am Health Care Power of Fagot Maker No 07/28/14 8:04am Organ Donor Yes 07/28/14 8:04am Resuscitation Status Full Code 07/28/14 8:04am Directive Response Recor ded Date Advance Directives N 10:15am Health Care Power of Fagot Maker N 11/06/12 10:15am Organ Donor N 11/06/12 1 0:15am Directive Response Recor ded Date Advance Directives N 12:43pm Directive Response Recor ded Date/Time Advance Directives No 9:56am Health Care Power of Fagot Maker No 09/23/14 9:56am Organ Donor Yes 09/23/14 9:56am Resuscitation Status Full Code 09/23/14 9:56am Directive Response Recor ded Date/Time Advance Directives No 10:45am Health Care Power of Fagot Maker No 01/28/14 10:45am Organ Donor No 01/28/14 10:45am Resuscitation Status Full Code 01/28/14 10:45am Directive Response Recor ded Date Advance Directives N 1:25pm Health Care Power of Fagot Maker N 11/05/12 1:25pm Organ Donor N 11/05/12 1 :25pm Directive Response Recor ded Date/Time Advance Directives No 9:35am Health Care Power of Fagot Maker No 02/25/17 9:35am Organ Donor Yes 02/25/17 9:35am Resuscitation Status Full Code 02/25/17 9:35am Directive Response Recor ded Date/Time Advance Directives No 9:25pm Health Care Power of Fagot Maker No 02/12/18 9:25pm Organ Donor Yes 02/12/18 9:25pm Resuscitation Status Full Code 02/12/18 9:25pm Directive Response Recor ded Date/Time Advance Directives No 9:25pm Health Care Power of Fagot Maker No 02/12/18 9:25pm Organ Donor Yes 02/12/18 9:25pm Directive Response Recor ded Date/Time Advance Directives No 11:55am Health Care Power of Fagot Maker No 07/13/18 11:55am Organ Donor Yes 07/13/18 11:55am Resuscitation Status Full Code 07/13/18 11:55am Directive Response Recor ded Date/Time Advance Directives No 7:52pm Health Care Power of Fagot Maker No 09/27/18 7:52pm Organ Donor Yes 09/27/18 7:52pm Resuscitation Status Full Code 09/27/18 7:52pm Directive Response Recor ded Date/Time Advance Directives No 3:37pm Health Care Power of Fagot Maker No 11/10/18 3:37pm Organ Donor Yes 11/10/18 3:37pm Advance Directive Response Recorded Date/Time Advance Directives No 2018 1:44am Health Care Power of Fagot Maker No April 14, 2019 1:44am Organ Donor Yes April 14, 2019 1:44am Resuscitation Status Full Code April 14, 2019 1:44am Discharge Instructions No hospital discharge instructions.No hospital discharge instructions.No hospital discharge instructions. Patient Instructions Physician Instructions Plan of Care/Instructions/FU: Call clinic for any fevers, chills or bleeding/drainage from surgical site. Do not remove the dressings. No showers or bathing for 7 days. Turn off the spinal cord stimulator when driving. Follow up in clinic on 04/29/16 at 10:00 am Call the spinal cord st/imulator bottling equipment sales representative or pain clinic for any questions or concerns. Activity as Tolerated: Yes Discharge Diet: No Restrictions Care Plan Patient Instructions:: Call clinic for any fevers, chills or bleeding/drainage from surgical site.Do not remove the dressings.No showers or bathing for 7 days. Turn off the spinal cord stimulator when driving.Follow up in clinic on 04/29/16 at 10:[address]/imulator bottling equipment sales representative or pain clinic for anyquestions or concerns. No hospital discharge instructions.No hospital discharge instructions.No hospital discharge instructions.No hospital discharge instructions.No hospital discharge instructions.No hospital discharge instructions.No hospital discharge instructions. Patient Instructions Physician Instructions Plan of Care/Instructions/FU: Follow up with Dr. Case as needed. Also follow up with PCP. High fiber diet. Activity as Tolerated: Yes Discharge Diet: No Restrictions Care Plan Patient Instructions:: Follow up with Dr. Case as needed. Also follow up with PCP.High fiber diet. No hospital discharge instructions.No hospital discharge instructions.No hospital discharge instructions.No hospital discharge instructions.No hospital discharge instructions.No hospital discharge instructions.No hospital discharge instruction information available.No hospital discharge instruction information available.No hospital discharge instruction information available.No hospital discharge instruction information available.No hospital discharge instruction information available.No hospital discharge instruction information available. Chief Complaint and Reason for Visit Chief Complaint Lower Extremity Reason for Visit Acute exacerbation of chronic low back pain Chief Complaint Cough/Cold/Flu Sympt oms Reason for Visit Bronchitis Influenza Pneumonia Chief Complaint Lower Extremity Reason for Visit Internal derangemen t of right knee Chief Complaint Cough/Cold/Flu Sympt oms Reason for Visit [id number] Additional Source Comments This clinical document has been generated using [employer] software that has been certified by the Office of the National Coordinator for Health Information Technology (ONC 15.99.04.3023.Diam.31.00.0.308436) and the National Committee for Sales Activity Manager (NCQA, as an eMeasure certified technology). FOR RECORDS PERTAINING TO PATIENTS WHO ARE OR HAVE BEEN ENROLLED IN A CHEMICAL D EPENDENCY/SUBSTANCE ABUSE PROGRAM, SOME INFORMATION MAY BE OMITTED. This clinica l summary was aggregated from multiple sources. Caution should be exercised in using it in the provision of clinical care. This summary normalizes information from multiple sources, and as a consequence, information in this document may ma terially change the coding, format and clinical context of patient data. In juliano tion, data may be omitted in some cases. CLINICAL DECISIONS SHOULD BE BASED ON T HE PRIMARY CLINICAL RECORDS. [employer] provides no warranty or guara ntee of the accuracy or completeness of information in this document.The followi ng information is based on time limited clinical information UNRECOGNIZED CONTENT PROVIDED BELOW FOR UNRECOGNIZED SECTION MEDICAL (GENERAL) HISTORY Type Description Date Medical History cardiovascular disea se- edema Medical History Hypothyroidism Medical History chronic low back pain Medical History depression Medical History panic disorder Medical History vitamin D deficiency Medical History Right lung biopsy 01/1996 Medical History Unspecified vitamin D deficiency Medical History Controlled substance agreement terminated Medical History spinal stenosis, art hritis, bulging disc's Surgical History wisdom teeth extraction Surgical History hysterectomy 2004 Surgical History orthopedic surgery broken right arm 2003 Surgical History [employer] removed f rom left lower leg [address] Case at [facility] 07/2014 Surgical History spinal stimulator - dr. vi vasquez 2017 Hospitalization History pneumonia Hospitalization History x1 night for observation after spinal stimulator. Type Description Date Medical History cardiovascular disea se- edema Medical History Hypothyroidism Medical History chronic low back pain Medical History depression Medical History panic disorder Medical History vitamin D deficiency Medical History Right lung biopsy 01/1996 Medical History Unspecified vitamin D deficiency Medical History Controlled substance agreement terminated Medical History spinal stenosis, art hritis, bulging disc's Surgical History wisdom teeth extraction Surgical History hysterectomy 2005 Surgical History orthopedic surgery broken right arm 2003 Surgical History [employer] removed f rom left lower leg [address] Case at [facility] 07/2014 Surgical History spinal stimulator - dr. vi vasquez 2017 Hospitalization History pneumonia Hospitalization History x1 night for observation after spinal stimulator. Hospitalization History Pneumonia 07/2017 Type Description Date Medical History cardiovascular disea se- edema Medical History Hypothyroidism Medical History chronic low back pain Medical History depression Medical History panic disorder Medical History vitamin D deficiency Medical History Right lung biopsy 01/1996 Medical History Unspecified vitamin D deficiency Medical History Controlled substance agreement terminated Medical History spinal stenosis, art hritis, bulging disc's Medical History COPD Medical History sleep as Surgical History wisdom teeth extraction Surgical History hysterectomy 2005 Surgical History orthopedic surgery broken right arm 2003 Surgical History [employer] removed f rom left lower leg [address] [facility]2014 Surgical History spinal stimulator - dr. vi vasquez 2016 Surgical History spinal stimulator r emoval 03/2018 Hospitalization History pneumonia Hospitalization History x1 night for observation after spinal stimulator. Hospitalization History Pneumonia 07/2017 Type Description Date Medical History cardiovascular disea se- edema Medical History Hypothyroidism Medical History chronic low back pain Medical History depression Medical History panic disorder Medical History vitamin D deficiency Medical History Right lung biopsy 01/1996 Medical History Unspecified vitamin D deficiency Medical History Controlled substance agreement terminated Medical History spinal stenosis, art hritis, bulging disc's Medical History COPD Medical History sleep as Medical History Seizures Surgical History wisdom teeth extraction Surgical History hysterectomy 2005 Surgical History orthopedic surgery broken right arm 2003 Surgical History [employer] removed f rom left lower leg [address] Case [facility]2014 Surgical History spinal stimulator - dr. vi vasquez 2017 Surgical History spinal stimulator r emoval 03/2018 Hospitalization History pneumonia Hospitalization History x1 night for observation after spinal stimulator. Hospitalization History Pneumonia 07/2017 UNRECOGNIZED CONTENT PROVIDED BELOW FOR UNRECOGNIZED SECTION REASON FOR VISIT Refill requestBilat ear pain started about 3 days ago JStrasserRKATHERINE symptoms--t cuppettRN, --cramping and pain with urination and increased frequency x 1 weekVi danna Aviles f/u on 12/27/17 for dizzy spells. Pt states that she is still having di zzy spells. She states that she is having them more now. She also states she fee ls shaky, her vision gets blurry and feels like she can not talk when these spel ls come on. Sangeetha Gonsalez requestBH f/uFollow up on ER visit for dizziness a nd seizure like activity. Pt states that she is "feeling a little bit better but not much" JUHI Gonsalez, needs some meds refilled. Sangeetha Gonsalez requestscriptRefill re lepitFXC-IqbSUE-BotLSG-MshCFE-PuaKWU-ZeyNHV-KvsMXN-XjzQFZ-AckLAG-PnxBGB-HazKSG-Q vlXEI-KjjTIG-VslPDC-YucZPB-RkyUKB-NkeHOK-MigBH f/u Naresh
--- OUTSIDE RECORDS SUMMARY | 2019-09-07 15:20 | XMS REPORT | Continuity of Care Document ---
Demographics Preferred Language Unknown Marital Status Unknown Tenriism Affiliation Unknown Race Unknown Ethnic Group Unknown Author Organization Unknown Address Unknown Phone Unavailable Allergies Active Description [...] RUBEN HILL APRN 301.83 PD BORDERLINE 10/02/2011 NIKOLAI JOAQUIN MEGAN T 296.33 MO DEPRESSIVE RECURRENT SEVERE W/O PSYCHOTIC BEHAVIOR 10/02/2011 NIKOLAI JOAQUIN MEGAN T 301.83 PD BORDERLINE 10/02/2011 CHRISTIANO CARRERA PSYD L 296.33 MO DEPRESSIVE RECURRENT SEVERE W/O PSYCHOTIC BEHAVIOR 10/02/2011 CHRISTIANO CARRERA PSYD ANN L 301.83 PD BORDERLINE 10/02/2011 HEMA CUTLER MD 296.33 MO DEPRESSIVE RECURRENT SEVERE W/O PSYCHOTIC BEHAVIOR 10/02/2011 HEMA CUTLER MD 301.83 PD BORDERLINE 10/02/2011 LIZ JOAQUIN RUBEN WILNER 296.33 MO DEPRESSIVE RECURRENT SEVERE W/O PSYCHOTIC BEHAVIOR 10/02/2011 LIZ JOAQUIN RUBEN WILNER 301.83 PD BORDERLINE 10/02/2011 RICARDO ROGERS APRN L 296 .33 MO DEPRESSIVE RECURRENT SEVERE W/O PSYCHOTIC BEHAVIOR 10/02/2011 ANDREW ROGERS APRNA L 301 .83 PD BORDERLINE 10/02/2011 MADL DOUBLE END PRODUCTION GRINDER, RICARDO L 296 .33 MO DEPRESSIVE RECURRENT SEVERE W/O PSYCHOTIC BEHAVIOR 10/02/2011 MADL DOUBLE END PRODUCTION GRINDER, RICARDO L 301 .83 PD BORDERLINE 10/02/2011 MADL DOUBLE END PRODUCTION GRINDER, RICARDO L 296 .33 MO DEPRESSIVE RECURRENT SEVERE W/O PSYCHOTIC BEHAVIOR 10/02/2011 MADL DOUBLE END PRODUCTION GRINDER, RICARDO L 301 .83 PD BORDERLINE 10/02/2011 MADL DOUBLE END PRODUCTION GRINDER, RICARDO L 296 .33 MO DEPRESSIVE RECURRENT SEVERE W/O PSYCHOTIC BEHAVIOR 10/02/2011 MADL DOUBLE END PRODUCTION GRINDER, RICARDO L 301 .83 PD BORDERLINE 10/02/2011 MADL DOUBLE END PRODUCTION GRINDER, RICARDO L 296 .33 MO DEPRESSIVE RECURRENT SEVERE W/O PSYCHOTIC BEHAVIOR 10/02/2011 MADL DOUBLE END PRODUCTION GRINDER, RICARDO L 301 .83 PD BORDERLINE 10/02/2011 MADL DOUBLE END PRODUCTION GRINDER, RICARDO L 296 .33 MO DEPRESSIVE RECURRENT SEVERE W/O PSYCHOTIC BEHAVIOR 10/02/2011 MADL DOUBLE END PRODUCTION GRINDER, RICARDO L 301 .83 PD BORDERLINE 10/02/2011 CHRISTIANO CARRERA PSYD ANN L 296.33 MO DEPRESSIVE RECURRENT SEVERE W/O PSYCHOTIC BEHAVIOR 10/02/2011 CHRISTIANO CARRERA PSYD ANN L 301.83 PD BORDERLINE 10/02/2011 MADL DOUBLE END PRODUCTION GRINDER, RICARDO L 296 .33 MO DEPRESSIVE RECURRENT SEVERE W/O PSYCHOTIC BEHAVIOR 10/02/2011 MADL DOUBLE END PRODUCTION GRINDER, RICARDO L 301 .83 PD BORDERLINE 10/02/2011 MADL DOUBLE END PRODUCTION GRINDER, RICARDO L 296 .33 MO DEPRESSIVE RECURRENT SEVERE W/O PSYCHOTIC BEHAVIOR 10/02/2011 MADL DOUBLE END PRODUCTION GRINDER, RICARDO L 301 .83 PD BORDERLINE 10/02/2011 PORTER DO, BON K 296.33 MO DEPRESSIVE RECURRENT SEVERE W/O PSYCHOTIC BEHAVIOR 10/02/2011 PORTER DO, BON K 301.83 PD BORDERLINE 10/02/2011 CHRISTIANO CARRERA PSYD ANN L 296.33 MO DEPRESSIVE RECURRENT SEVERE W/O PSYCHOTIC BEHAVIOR 10/02/2011 CHRISTIANO CARRERA PSYD ANN L 301.83 PD BORDERLINE 10/02/2011 MADL DOUBLE END PRODUCTION GRINDER, RICARDO L 296 .33 MO DEPRESSIVE RECURRENT SEVERE W/O PSYCHOTIC BEHAVIOR 10/02/2011 MADL DOUBLE END PRODUCTION GRINDER, RICARDO L 301 .83 PD BORDERLINE 10/02/2011 MADL DOUBLE END PRODUCTION GRINDER, RICARDO L 296 .33 MO DEPRESSIVE RECURRENT SEVERE W/O PSYCHOTIC BEHAVIOR 10/02/2011 MADYaneth JOAQUIN, RICARDO L 301 .83 PD BORDERLINE 10/02/2011 MADL DOUBLE END PRODUCTION GRINDER, RICARDO L 296 .33 MO DEPRESSIVE RECURRENT SEVERE W/O PSYCHOTIC BEHAVIOR 10/02/2011 MADL JEMAL, RICARDO L 301 .83 PD BORDERLINE 10/02/2011 CHRISTIANO CARRERA PSYD ANN L 296.33 MO DEPRESSIVE RECURRENT SEVERE W/O PSYCHOTIC BEHAVIOR 10/02/2011 CHRISTIANO CARRERA PSYD ANN L 301.83 PD BORDERLINE 10/02/2011 MADYaneth DOUBLE END PRODUCTION GRINDER, RICARDO L 296 .33 MO DEPRESSIVE RECURRENT SEVERE W/O PSYCHOTIC BEHAVIOR 10/02/2011 MADYaneth JOAQUIN, RICARDO L 301 .83 PD BORDERLINE 10/02/2011 MADYaneth JOAQUIN, RICARDO L 296 .33 MO DEPRESSIVE RECURRENT SEVERE W/O PSYCHOTIC BEHAVIOR 10/02/2011 KEN JOAQUIN, RICARDO L 301 .83 PD BORDERLINE 10/02/2011 MADYaneth JOAQUIN, RICARDO L 296 .33 MO DEPRESSIVE RECURRENT SEVERE W/O PSYCHOTIC BEHAVIOR 10/02/2011 KEN JOAQUIN, RICARDO L 301 .83 PD BORDERLINE 10/02/2011 PORTER DO BON K 296.33 MO DEPRESSIVE RECURRENT SEVERE W/O PSYCHOTIC BEHAVIOR 10/02/2011 PORTER DO, BON K 301.83 PD BORDERLINE 10/02/2011 KEN JOAQUIN, RICARDO L 296 .33 MO DEPRESSIVE RECURRENT SEVERE W/O PSYCHOTIC BEHAVIOR 10/02/2011 KEN JOAQUIN, RICARDO L 301 .83 PD BORDERLINE 10/02/2011 CHRISTIANO CARRERA PSYD ANN [...] MO DEPRESSIVE RECURRENT MODERATE 11/14/2011 301.9 PD P ERS DIS NOS 11/14/2011 PORTER DO, BON K 296.32 MO DEPRESSIVE RECURRENT MODERATE 11/14/2011 PORTER DO, BON K 301.9 PD PERS DIS NOS 11/14/2011 PORTER DO, BON K 296.32 MO DEPRESSIVE RECURRENT MODERATE 11/14/2011 PORETR DO, BON K 301.9 PD PERS DIS NOS 11/14/2011 CHRISTIANO CARRERA PSYD ANN L 296.32 MO DEPRESSIVE RECURRENT MODERATE 11/14/2011 CHRISTIANO CARRERA PSYD L 301.9 PD PERS DIS NOS 11/14/2011 296.32 MO DEPRESSIVE RECURRENT MODERATE 11/14/2011 301.9 PD P ERS DIS NOS 11/14/2011 296.32 MO DEPRESSIVE RECURRENT MODERATE 11/14/2011 301.9 PD P ERS DIS NOS 11/14/2011 296.32 MO DEPRESSIVE RECURRENT MODERATE 11/14/2011 301.9 PD P ERS DIS NOS 11/14/2011 296.32 MO DEPRESSIVE RECURRENT MODERATE 11/14/2011 301.9 PD P ERS DIS NOS 11/14/2011 296.32 MO DEPRESSIVE RECURRENT MODERATE 11/14/2011 301.9 PD P ERS DIS NOS 11/14/2011 296.32 MO DEPRESSIVE RECURRENT MODERATE 11/14/2011 301.9 PD P ERS DIS NOS 11/14/2011 296.32 MO DEPRESSIVE RECURRENT MODERATE 11/14/2011 301.9 PD P ERS DIS NOS 11/14/2011 296.32 LU OR DEPRESSION RECURRENT MODERATE 11/14/2011 301.9 PD P ERS DIS NOS 11/14/2011 296.32 LU OR DEPRESSION RECURRENT MODERATE 11/14/2011 301.9 PD P ERS DIS NOS 11/14/2011 RUBEN HILL APRN 296.32 [...] RECURRENT MODERATE 11/14/2011 MEGAN MENCHACA APRN T 30 1.9 PD PERS DIS NOS 11/14/2011 CHRISTIANO CARRERA PSYD ANN L 296.32 MAJOR DEPRESSION RECURRENT MODERATE 11/14/2011 CHRISTIANO CARRERA PSYD ANN L 301.9 PD PERS DIS NOS 11/14/2011 HEMA CUTLER MD 296.32 MAJOR DEPRESSION RECURRENT MODERATE 11/14/2011 HEMA CUTLER MD 301.9 PD PERS DIS NOS 11/14/2011 RUBEN HILL APRN 296.32 MAJOR DEPRESSION RECURRENT MODERATE 11/14/2011 RUBEN HILL APRN 301.9 PD PERS DIS NOS 11/14/2011 SONYAL DOUBLE END PRODUCTION GRINDER, RICARDO L 296 .32 MAJOR DEPRESSION RECURRENT MODERATE 11/14/2011 MADL DOUBLE END PRODUCTION GRINDER, RICARDO L 301 .9 PD PERS DIS NOS 11/14/2011 MADL DOUBLE END PRODUCTION GRINDER, RICARDO L 296 .32 MAJOR DEPRESSION RECURRENT MODERATE 11/14/2011 MADL DOUBLE END PRODUCTION GRINDER, RICARDO L 301 .9 PD PERS DIS NOS 11/14/2011 MADL DOUBLE END PRODUCTION GRINDER, RICARDO L 296 .32 MAJOR DEPRESSION RECURRENT MODERATE 11/14/2011 MADL DOUBLE END PRODUCTION GRINDER, RICARDO L 301 .9 PD PERS DIS NOS 11/14/2011 MADL DOUBLE END PRODUCTION GRINDER, RICARDO L 296 .32 MAJOR DEPRESSION RECURRENT MODERATE 11/14/2011 MADL DOUBLE END PRODUCTION GRINDER, RICARDO L 301 .9 PD PERS DIS NOS 11/14/2011 MADL DOUBLE END PRODUCTION GRINDER, RICARDO L 296 .32 MAJOR DEPRESSION RECURRENT MODERATE 11/14/2011 MADL DOUBLE END PRODUCTION GRINDER, RICARDO L 301 .9 PD PERS DIS NOS 11/14/2011 MADL DOUBLE END PRODUCTION GRINDER, RICARDO L 296 .32 MAJOR DEPRESSION RECURRENT MODERATE 11/14/2011 MADL DOUBLE END PRODUCTION GRINDER, RICARDO L 301 .9 PD PERS DIS NOS 11/14/2011 CHRISTIANO CARRERA PSYD ANN L 296.32 MAJOR DEPRESSION RECURRENT MODERATE 11/14/2011 CHRISTIANO CARRERA PSYD ANN L 301.9 PD PERS DIS NOS 11/14/2011 MADL DOUBLE END PRODUCTION GRINDER, RICARDO L 296 .32 MAJOR DEPRESSION RECURRENT MODERATE 11/14/2011 MADL DOUBLE END PRODUCTION GRINDER, RICARDO L 301 .9 PD PERS DIS NOS 11/14/2011 MADL DOUBLE END PRODUCTION GRINDER, RICARDO L 296 .32 MAJOR DEPRESSION RECURRENT MODERATE 11/14/2011 MADL DOUBLE END PRODUCTION GRINDER, RICARDO L 301 .9 PD PERS DIS NOS 11/14/2011 PORTER DO, BON K 296.32 MAJOR DEPRESSION RECURRENT MODERATE 11/14/2011 PORTER DO, BON K 301.9 PD PERS DIS NOS 11/14/2011 CHRISTIANO CARRERA PSYD ANN L 296.32 MAJOR DEPRESSION RECURRENT MODERATE 11/14/2011 CHRISTIANO CARRERA PSYD ANN L 301.9 PD PERS DIS NOS 11/14/2011 MADL DOUBLE END PRODUCTION GRINDER, RICARDO L 296 .32 MAJOR DEPRESSION RECURRENT MODERATE 11/14/2011 MADL DOUBLE END PRODUCTION GRINDER, RICARDO L 301 .9 PD PERS DIS NOS 11/14/2011 MADL DOUBLE END PRODUCTION GRINDER, RICARDO L 296 .32 MAJOR DEPRESSION RECURRENT MODERATE 11/14/2011 MADL DOUBLE END PRODUCTION GRINDER, RICARDO L 301 .9 PD PERS DIS NOS 11/14/2011 MADL DOUBLE END PRODUCTION GRINDER, RICARDO L 296 .32 MAJOR DEPRESSION RECURRENT MODERATE 11/14/2011 MADL DOUBLE END PRODUCTION GRINDER, RICARDO L 301 .9 PD PERS DIS NOS 11/14/2011 CHRISTIANO CRARERA PSYD ANN L 296.32 MAJOR DEPRESSION RECURRENT MODERATE 11/14/2011 CHRISTIANO CARRERA PSYD ANN L 301.9 PD PERS DIS NOS 11/14/2011 MADL DOUBLE END PRODUCTION GRINDER, RICARDO L 296 .32 MAJOR DEPRESSION RECURRENT MODERATE 11/14/2011 MADL DOUBLE END PRODUCTION GRINDER, RICARDO L 301 .9 PD PERS DIS NOS 11/14/2011 MADL DOUBLE END PRODUCTION GRINDER, RICARDO L 296 .32 MAJOR DEPRESSION RECURRENT MODERATE 11/14/2011 MADL DOUBLE END PRODUCTION GRINDER, RICARDO L 301 .9 PD PERS DIS NOS 11/14/2011 MADL DOUBLE END PRODUCTION GRINDER, RICARDO L 296 .32 MAJOR DEPRESSION RECURRENT MODERATE 11/14/2011 MADL DOUBLE END PRODUCTION GRINDER, RICARDO L 301 .9 PD PERS DIS NOS 11/14/2011 PORTER DO, BON K 296.32 MAJOR DEPRESSION RECURRENT MODERATE 11/14/2011 BON PORTER DO K 301.9 PD PERS DIS NOS 11/14/2011 MADL DOUBLE END PRODUCTION GRINDER, RICARDO L 296 .32 MAJOR DEPRESSION RECURRENT MODERATE 11/14/2011 MADL DOUBLE END PRODUCTION GRINDER, RICARDO L 301 .9 PD PERS DIS NOS 11/14/2011 CHRISTIANO CARRERA PSYD ANN L 296.32 MAJOR DEPRESSION RECURRENT MODERATE 11/14/2011 CHRISTIANO CARRERA PSYD ANN L 301.9 PD PERS DIS NOS 11/14/2011 CHRISTIANO CRARERA PSYD ANN L 296.32 MO DEPRESSIVE RECURRENT MODERATE 11/14/2011 CHRISTIANO CARRERA PSYD ANN L 301.9 PD PERS DIS NOS 11/21/2011 CHRISTIANO CARRERA PSYD L 300.01 AN PANIC DIS W/O AGORA 11/21/2011 300.01 AN PANIC DIS W/O AGORA 11/21/2011 GERMAN RUSHINGBON K 300.01 AN PANIC DIS W/O AGORA [...] 300.01 AN PANIC DIS W/O AGORA 11/21/2011 NIKOLAI DOUBLE END PRODUCTION GRINDER, MEGAN T 300.01 AN PANIC DIS W/O AGORA 11/21/2011 CHRISTIANO CARRERA PSYD 300.01 AN PANIC DIS W/O AGORA 11/21/2011 HEMA CUTLER MD 300.01 AN PANIC DIS W/O AGORA 11/21/2011 HILL JEMAL RUBEN DARBY 300.01 AN PANIC DIS W/O AGORA 11/21/2011 MADL DOUBLE END PRODUCTION GRINDER, RICARDO L 300 .01 AN PANIC DIS W/O AGORA 11/21/2011 MADL DOUBLE END PRODUCTION GRINDER, RICARDO L 300 .01 AN PANIC DIS W/O AGORA 11/21/2011 MADL DOUBLE END PRODUCTION GRINDER, RICARDO L 300 .01 AN PANIC DIS W/O AGORA 11/21/2011 MADL DOUBLE END PRODUCTION GRINDER, RICARDO L 300 .01 AN PANIC DIS W/O AGORA 11/21/2011 MADL DOUBLE END PRODUCTION GRINDER, RICARDO L 300 .01 AN PANIC DIS W/O AGORA 11/21/2011 MADL DOUBLE END PRODUCTION GRINDER, RICARDO L 300 .01 AN PANIC DIS W/O AGORA 11/21/2011 CHRISTIANO CARRERA PSYD L 300.01 AN PANIC DIS W/O AGORA 11/21/2011 MADL DOUBLE END PRODUCTION GRINDER, RICARDO L 300 .01 AN PANIC DIS W/O AGORA 11/21/2011 MADL DOUBLE END PRODUCTION GRINDER, RICARDO L 300 .01 AN PANIC DIS W/O AGORA 11/21/2011 BON PORTER DO K 300.01 AN PANIC DIS W/O AGORA 11/21/2011 CHRISTIANO CARRERA PSYD L 300.01 AN PANIC DIS W/O AGORA 11/21/2011 MADL DOUBLE END PRODUCTION GRINDER, RICARDO L 300 .01 AN PANIC DIS W/O AGORA 11/21/2011 MADL DOUBLE END PRODUCTION GRINDER, RICARDO L 300 .01 AN PANIC DIS W/O AGORA 11/21/2011 MADL DOUBLE END PRODUCTION GRINDER, RICARDO L 300 .01 AN PANIC DIS W/O AGORA 11/21/2011 CHRISTIANO CARRERA PSYD L 300.01 AN PANIC DIS W/O AGORA 11/21/2011 MADL DOUBLE END PRODUCTION GRINDER, RICARDO L 300 .01 AN PANIC DIS W/O AGORA 11/21/2011 SONYAL DOUBLE END PRODUCTION GRINDER, RICARDO L 300 .01 AN PANIC DIS W/O AGORA 11/21/2011 SONYAL DOUBLE END PRODUCTION GRINDER, RICARDO L 300 .01 AN PANIC DIS W/O AGORA 11/21/2011 BON PORTER DO K 300.01 AN PANIC DIS W/O AGORA 11/21/2011 KEN KUMARANDREW McclureA L 300 .01 AN PANIC DIS W/O AGORA 11/21/2011 CHRISTIANO CARRERA PSYD 300.01 AN PANIC DIS W/O AGORA 11/21/2011 CHRISTIANO CARRERA PSYD 300.01 AN PANIC DIS W/O AGORA 02/10/2012 CHRISTIANO CARRERA PSYD 300.02 AN GEN ANXIETY 02/10/2012 300.02 AN GEN ANXIETY 02/10/2012 GERMAN RUSHINGBON K 300.02 AN GEN ANXIETY 02/10/2012 GERMAN [...] APRN 300.02 AN GEN ANXIETY 02/10/2012 MADL DOUBLE END PRODUCTION GRINDER, RICARDO L 300 .02 AN GEN ANXIETY 02/10/2012 MADL DOUBLE END PRODUCTION GRINDER, RICARDO L 300 .02 AN GEN ANXIETY 02/10/2012 MADL DOUBLE END PRODUCTION GRINDER, RICARDO L 300 .02 AN GEN ANXIETY 02/10/2012 MADL DOUBLE END PRODUCTION GRINDER, RICARDO L 300 .02 AN GEN ANXIETY 02/10/2012 MADL DOUBLE END PRODUCTION GRINDER, RICARDO L 300 .02 AN GEN ANXIETY 02/10/2012 MADL DOUBLE END PRODUCTION GRINDER, RICARDO L 300 .02 AN GEN ANXIETY 02/10/2012 CHRISTIANO CARRERA PSYD L 300.02 AN GEN ANXIETY 02/10/2012 MADL DOUBLE END PRODUCTION GRINDER, RICARDO L 300 .02 AN GEN ANXIETY 02/10/2012 MADL DOUBLE END PRODUCTION GRINDER, RICARDO L 300 .02 AN GEN ANXIETY 02/10/2012 PORTER DOSHANITAA K 300.02 AN GEN ANXIETY 02/10/2012 CHRISTIANO CARRERA PSYD L 300.02 AN GEN ANXIETY 02/10/2012 MADL DOUBLE END PRODUCTION GRINDER, RICARDO L 300 .02 AN GEN ANXIETY 02/10/2012 MADL DOUBLE END PRODUCTION GRINDER, RICARDO L 300 .02 AN GEN ANXIETY 02/10/2012 SONYAL DOUBLE END PRODUCTION GRINDER, RICARDO L 300 .02 AN GEN ANXIETY 02/10/2012 CHRISTIANO CARRERA PSYD L 300.02 AN GEN ANXIETY 02/10/2012 MADL DOUBLE END PRODUCTION GRINDER, RICARDO L 300 .02 AN GEN ANXIETY 02/10/2012 MADL DOUBLE END PRODUCTION GRINDER, RICARDO L 300 .02 AN GEN ANXIETY 02/10/2012 MADL DOUBLE END PRODUCTION GRINDER, RICARDO L 300 .02 AN GEN ANXIETY 02/10/2012 PORTER DO BON K 300.02 AN GEN ANXIETY 02/10/2012 MADL DOUBLE END PRODUCTION GRINDER, RICARDO L 300 .02 AN GEN ANXIETY 02/10/2012 CHRISTIANO CARRERA PSYD L 300.02 AN GEN ANXIETY 02/10/2012 CHRISTIANO CARRERA PSYD L 300.02 AN GEN ANXIETY 03/05/2012 CHRISTIANO CARRERA PSYD L 682.6 CELLULITIS AND ABSCESS OF LEG EXCEPT FOOT 03/05/2012 682.6 CELL ULITIS AND ABSCESS OF LEG EXCEPT FOOT 03/05/2012 OBN PORTER DO K 682.6 CELLULITIS AND ABSCESS OF LEG EXCEPT FOOT 03/05/2012 BON PORTER DO K 682.6 CELLULITIS AND ABSCESS OF LEG EXCEPT FOOT 03/05/2012 CHRISTIANO CARRERA PSYD 682.6 CELLULITIS AND ABSCESS OF LEG EXCEPT FOOT 03/05/2012 682.6 CELL ULITIS AND ABSCESS OF LEG EXCEPT FOOT 03/05/2012 682.6 CELL ULITIS AND ABSCESS OF LEG EXCEPT FOOT 03/05/2012 682.6 CELL ULITIS AND ABSCESS OF LEG EXCEPT FOOT 03/05/2012 682.6 CELL ULITIS AND ABSCESS OF LEG EXCEPT FOOT 03/05/2012 682.6 CELL ULITIS AND ABSCESS OF LEG EXCEPT FOOT 03/05/2012 682.6 CELL ULITIS AND ABSCESS OF LEG EXCEPT FOOT 03/05/2012 682.6 CELL ULITIS AND ABSCESS OF LEG EXCEPT FOOT 03/05/2012 682.6 CELL ULITIS AND ABSCESS OF LEG EXCEPT FOOT 03/05/2012 682.6 CELL ULITIS AND ABSCESS OF LEG EXCEPT FOOT 03/05/2012 RUBEN HILL APRN 682.6 CELLULITIS AND ABSCESS OF LEG EXCEPT FOOT 03/05/2012 HEMA CUTLER MD 682.6 CELLULITIS AND ABSCESS OF LEG EXCEPT FOOT 03/05/2012 CHRISTIANO CARRERA PSYD 682.6 CELLULITIS AND ABSCESS OF LEG EXCEPT FOOT 03/05/2012 RUBEN HILL APRN 682.6 CELLULITIS AND ABSCESS OF LEG EXCEPT FOOT 03/05/2012 MEGAN MENCHACA APRN 68 2.6 CELLULITIS AND ABSCESS OF LEG EXCEPT FOOT 03/05/2012 CHRISTIANO CARRERA PSYD 682.6 CELLULITIS AND ABSCESS OF LEG EXCEPT FOOT 03/05/2012 HEMA CUTLER MD 682.6 CELLULITIS AND ABSCESS OF LEG EXCEPT FOOT 03/05/2012 RUBEN HILL APRN 682.6 CELLULITIS AND ABSCESS OF LEG EXCEPT FOOT 03/05/2012 RICARDO ROGERS APRN L 682 .6 CELLULITIS AND ABSCESS OF LEG EXCEPT FOOT 03/05/2012 ANDREW ROGERS APRNA L 682 .6 CELLULITIS AND ABSCESS OF LEG EXCEPT FOOT 03/05/2012 MADL DOUBLE END PRODUCTION GRINDER, RICARDO L 682 .6 CELLULITIS AND ABSCESS OF LEG EXCEPT FOOT 03/05/2012 MADL DOUBLE END PRODUCTION GRINDER, RICARDO L 682 .6 CELLULITIS AND ABSCESS OF LEG EXCEPT FOOT 03/05/2012 MADL DOUBLE END PRODUCTION GRINDER, RICARDO L 682 .6 CELLULITIS AND ABSCESS OF LEG EXCEPT FOOT 03/05/2012 MADL DOUBLE END PRODUCTION GRINDER, RICARDO L 682 .6 CELLULITIS AND ABSCESS OF LEG EXCEPT FOOT 03/05/2012 CHRISTIANO CARRERA PSYD ANN L 682.6 CELLULITIS AND ABSCESS OF LEG EXCEPT FOOT 03/05/2012 MADL DOUBLE END PRODUCTION GRINDER, RICARDO L 682 .6 CELLULITIS AND ABSCESS OF LEG EXCEPT FOOT 03/05/2012 MADL DOUBLE END PRODUCTION GRINDER, RICARDO L 682 .6 CELLULITIS AND ABSCESS OF LEG EXCEPT FOOT 03/05/2012 PORTER DO BON K 682.6 CELLULITIS AND ABSCESS OF LEG EXCEPT FOOT 03/05/2012 CHRISTIANO CARRERA PSYD ANN L 682.6 CELLULITIS AND ABSCESS OF LEG EXCEPT FOOT 03/05/2012 MADL DOUBLE END PRODUCTION GRINDER, RICARDO L 682 .6 CELLULITIS AND ABSCESS OF LEG EXCEPT FOOT 03/05/2012 MADL DOUBLE END PRODUCTION GRINDER, RICARDO L 682 .6 CELLULITIS AND ABSCESS OF LEG EXCEPT FOOT 03/05/2012 MADL DOUBLE END PRODUCTION GRINDER, RICARDO L 682 .6 CELLULITIS AND ABSCESS OF LEG EXCEPT FOOT 03/05/2012 CHRISTIANO CARRERA PSYD ANN L 682.6 CELLULITIS AND ABSCESS OF LEG EXCEPT FOOT 03/05/2012 MADL DOUBLE END PRODUCTION GRINDER, RICARDO L 682 .6 CELLULITIS AND ABSCESS OF LEG EXCEPT FOOT 03/05/2012 MADL DOUBLE END PRODUCTION GRINDER, RICARDO L 682 .6 CELLULITIS AND ABSCESS OF LEG EXCEPT FOOT 03/05/2012 MADL DOUBLE END PRODUCTION GRINDER, RICARDO L 682 .6 CELLULITIS AND ABSCESS OF LEG EXCEPT FOOT 03/05/2012 PORTER DO, BON K 682.6 CELLULITIS AND ABSCESS OF LEG EXCEPT FOOT 03/05/2012 MADL DOUBLE END PRODUCTION GRINDER, RICARDO L 682 .6 CELLULITIS AND ABSCESS OF LEG EXCEPT FOOT 03/05/2012 CHRISTIANO CARRERA PSYD ANN L 682.6 CELLULITIS AND ABSCESS OF LEG EXCEPT FOOT 03/05/2012 CHRISTIANO CARRERA PSYD L 682.6 CELLULITIS AND ABSCESS OF LEG EXCEPT FOOT 03/24/2012 CHRISTIANO CARRERA PSYD L 244.9 HYPOTHYROIDISM 03/24/2012 CHRISTIANO CARRERA PSYD L 268.9 VITAMIN D DEFICIENCY 03/24/2012 CHRISTIANO CARRERA PSYD L 716.90 ARTHRITIS/ ARTHROPATHY, UNSPECIFIED 03/24/2012 244.9 HYPO THYROIDISM 03/24/2012 268.9 WILLOW MIN D DEFICIENCY 03/24/2012 716.90 ART HRITIS/ ARTHROPATHY, UNSPECIFIED 03/24/2012 PORTER DO BON K 244.9 HYPOTHYROIDISM 03/24/2012 PORTER DO BON K 268.9 VITAMIN D DEFICIENCY 03/24/2012 PORTER DO BON K 716.90 ARTHRITIS/ ARTHROPATHY, UNSPECIFIED 03/24/2012 PORTER DO BON K 244.9 HYPOTHYROIDISM 03/24/2012 PORTER DO BON K 268.9 VITAMIN D DEFICIENCY 03/24/2012 PORTER DO BON K 716.90 ARTHRITIS/ ARTHROPATHY, UNSPECIFIED 03/24/2012 CHRISTIANO CARRERA PSYD L 244.9 HYPOTHYROIDISM 03/24/2012 CHRISTIANO CARRERA PSYD L 268.9 VITAMIN D DEFICIENCY 03/24/2012 CHRISTIANO CARRERA PSYD L 716.90 ARTHRITIS/ ARTHROPATHY, UNSPECIFIED 03/24/2012 244.9 HYPO THYROIDISM 03/24/2012 268.9 WILLOW MIN D DEFICIENCY 03/24/2012 716.90 ART HRITIS/ ARTHROPATHY, UNSPECIFIED 03/24/2012 244.9 HYPO THYROIDISM 03/24/2012 268.9 WILLOW MIN D DEFICIENCY 03/24/2012 716.90 ART HRITIS/ ARTHROPATHY, UNSPECIFIED 03/24/2012 244.9 HYPO THYROIDISM 03/24/2012 268.9 WILLOW MIN D DEFICIENCY 03/24/2012 716.90 ART HRITIS/ ARTHROPATHY, UNSPECIFIED 03/24/2012 244.9 HYPO THYROIDISM 03/24/2012 268.9 WILLOW MIN D DEFICIENCY 03/24/2012 716.90 ART HRITIS/ ARTHROPATHY, UNSPECIFIED 03/24/2012 244.9 HYPO THYROIDISM 03/24/2012 268.9 WILLOW MIN D DEFICIENCY 03/24/2012 716.90 ART HRITIS/ ARTHROPATHY, UNSPECIFIED 03/24/2012 244.9 HYPO THYROIDISM 03/24/2012 268.9 WILLOW MIN D DEFICIENCY 03/24/2012 716.90 ART HRITIS/ ARTHROPATHY, UNSPECIFIED 03/24/2012 244.9 HYPO THYROIDISM 03/24/2012 268.9 WILLOW MIN D DEFICIENCY 03/24/2012 716.90 ART HRITIS/ ARTHROPATHY, UNSPECIFIED 03/24/2012 244.9 HYPO THYROIDISM 03/24/2012 268.9 WILLOW MIN D DEFICIENCY 03/24/2012 716.90 ART HRITIS/ ARTHROPATHY, UNSPECIFIED 03/24/2012 244.9 HYPO THYROIDISM 03/24/2012 268.9 WILLOW MIN D DEFICIENCY 03/24/2012 716.90 ART HRITIS/ ARTHROPATHY, UNSPECIFIED 03/24/2012 LIZ JOAQUIN RUBEN WILNER [...] PSYD L 716.90 ARTHRITIS/ ARTHROPATHY, UNSPECIFIED 03/24/2012 LIZ JOAQUIN RUBEN LAH 244.9 HYPOTHYROIDISM 03/24/2012 LIZ JOAQUIN RUBEN DARBY 268.9 VITAMIN D DEFICIENCY 03/24/2012 LIZ JOAQUIN RUBEN WILNER 716.90 ARTHRITIS/ ARTHROPATHY, UNSPECIFIED 03/24/2012 MEGAN MENCHACA APRN 24 4.9 HYPOTHYROIDISM 03/24/2012 MEGAN MENCHACA APRN 26 8.9 VITAMIN D DEFICIENCY 03/24/2012 MEGAN MENCHACA APRN 716.90 ARTHRITIS/ ARTHROPATHY, UNSPECIFIED 03/24/2012 DEANDRE FRANCO, PITO L 244.9 HYPOTHYROIDISM 03/24/2012 DEANDRE FRANCO, PITO L 268.9 VITAMIN D DEFICIENCY 03/24/2012 DEANDRE FRANCO, PITO L 716.90 ARTHRITIS/ ARTHROPATHY, UNSPECIFIED 03/24/2012 HEMA CUTLER MD M 244.9 HYPOTHYROIDISM 03/24/2012 HEMA CUTLER MD 268.9 VITAMIN D DEFICIENCY 03/24/2012 HEMA CUTLER MD 716.90 ARTHRITIS/ ARTHROPATHY, UNSPECIFIED 03/24/2012 [employer], RUBEN WILNER 244.9 HYPOTHYROIDISM 03/24/2012 [employer], RUBEN WILNER 268.9 VITAMIN D DEFICIENCY 03/24/2012 [employer], RUBEN DARBY 716.90 ARTHRITIS/ ARTHROPATHY, UNSPECIFIED 03/24/2012 [employer], RICARDO L 244 .9 HYPOTHYROIDISM 03/24/2012 [employer]AD[employer]ER, RICARDO L 268 .9 VITAMIN D DEFICIENCY 03/24/2012 MAD[employer]INDER, RICARDO L 716 .90 ARTHRITIS/ ARTHROPATHY, UNSPECIFIED 03/24/2012 MAD[employer], RICARDO L 244 .9 HYPOTHYROIDISM 03/24/2012 MAD[employer], RICARDO L 268 .9 VITAMIN D DEFICIENCY 03/24/2012 MAD[employer]ER, RICARDO L 716 .90 ARTHRITIS/ ARTHROPATHY, UNSPECIFIED 03/24/2012 MAD[employer], RICARDO L 244 .9 HYPOTHYROIDISM 03/24/2012 MAD[employer], RICARDO L 268 .9 VITAMIN D DEFICIENCY 03/24/2012 MAD[employer], RICARDO L 716 .90 ARTHRITIS/ ARTHROPATHY, UNSPECIFIED 03/24/2012 MAD[employer], RICARDO L 244 .9 HYPOTHYROIDISM 03/24/2012 [employer]AD[employer], RICARDO L 268 .9 VITAMIN D DEFICIENCY 03/24/2012 MAD[employer], RICARDO L 716 .90 ARTHRITIS/ ARTHROPATHY, UNSPECIFIED 03/24/2012 MAD[employer], RICARDO L 244 .9 HYPOTHYROIDISM 03/24/2012 MAD[employer], RICARDO L 268 .9 VITAMIN D DEFICIENCY 03/24/2012 MADL [employer], RICARDO L 716 .90 ARTHRITIS/ ARTHROPATHY, UNSPECIFIED 03/24/2012 MAD[employer], RICARDO L 244 .9 HYPOTHYROIDISM 03/24/2012 MAD[employer], RICARDO L 268 .9 VITAMIN D DEFICIENCY 03/24/2012 [employer], RICARDO L 716 .90 ARTHRITIS/ ARTHROPATHY, UNSPECIFIED 03/24/2012 CHRISTIANO CARRERA PSYD ANN L 244.9 HYPOTHYROIDISM 03/24/2012 CHRISTIANO CARRERA PSYD ANN L 268.9 VITAMIN D DEFICIENCY 03/24/2012 CHRISTIANO CARRERA PSYD ANN L 716.90 ARTHRITIS/ ARTHROPATHY, UNSPECIFIED 03/24/2012 [employer], RICARDO L 244 .9 HYPOTHYROIDISM 03/24/2012 MAD[employer], RICARDO L 268 .9 VITAMIN D DEFICIENCY 03/24/2012 MAD[employer], RICARDO L 716 .90 ARTHRITIS/ ARTHROPATHY, UNSPECIFIED 03/24/2012 MAD[employer], RICARDO L 244 .9 HYPOTHYROIDISM 03/24/2012 MAD[employer], RICARDO L 268 .9 VITAMIN D DEFICIENCY 03/24/2012 MAD[employer], RICARDO L 716 .90 ARTHRITIS/ ARTHROPATHY, UNSPECIFIED 03/24/2012 PORTER DO, BON K 244.9 HYPOTHYROIDISM 03/24/2012 PORTER DO, BON K 268.9 VITAMIN D DEFICIENCY 03/24/2012 PORTER DO, BON K 716.90 ARTHRITIS/ ARTHROPATHY, UNSPECIFIED 03/24/2012 CHRISTIANO CARRERA PSYD ANN L 244.9 HYPOTHYROIDISM 03/24/2012 CHRISTIANO CARRERA PSYD ANN L 268.9 VITAMIN D DEFICIENCY 03/24/2012 CHRISTIANO CARRERA PSYD ANN L 716.90 ARTHRITIS/ ARTHROPATHY, UNSPECIFIED 03/24/2012 [employer], RICARDO L 244 .9 HYPOTHYROIDISM 03/24/2012 MAD[employer], RICARDO L 268 .9 VITAMIN D DEFICIENCY 03/24/2012 MAD[employer], RICARDO L 716 .90 ARTHRITIS/ ARTHROPATHY, UNSPECIFIED 03/24/2012 MAD[employer], RICARDO L 244 .9 HYPOTHYROIDISM 03/24/2012 MAD[employer], RICARDO L 268 .9 VITAMIN D DEFICIENCY 03/24/2012 MAD[employer], RICARDO L 716 .90 ARTHRITIS/ ARTHROPATHY, UNSPECIFIED 03/24/2012 MADL DOUBLE END PRODUCTION GRINDER, RICARDO L 244 .9 HYPOTHYROIDISM 03/24/2012 MADL DOUBLE END PRODUCTION GRINDER, RICARDO L 268 .9 VITAMIN D DEFICIENCY 03/24/2012 MADL DOUBLE END PRODUCTION GRINDER, RICARDO L 716 .90 ARTHRITIS/ ARTHROPATHY, UNSPECIFIED 03/24/2012 CHRISTIANO CARRERA PSYD ANN L 244.9 HYPOTHYROIDISM 03/24/2012 CHRISTIANO CARRERA PSYD ANN L 268.9 VITAMIN D DEFICIENCY 03/24/2012 CHRISTIANO CARRERA PSYD ANN L 716.90 ARTHRITIS/ ARTHROPATHY, UNSPECIFIED 03/24/2012 MADL DOUBLE END PRODUCTION GRINDER, RICARDO L 244 .9 HYPOTHYROIDISM 03/24/2012 MADL DOUBLE END PRODUCTION GRINDER, RICARDO L 268 .9 VITAMIN D DEFICIENCY 03/24/2012 MADL DOUBLE END PRODUCTION GRINDER, RICARDO L 716 .90 ARTHRITIS/ ARTHROPATHY, UNSPECIFIED 03/24/2012 MADL DOUBLE END PRODUCTION GRINDER, RICARDO L 244 .9 HYPOTHYROIDISM 03/24/2012 MADL DOUBLE END PRODUCTION GRINDER, RICARDO L 268 .9 VITAMIN D DEFICIENCY 03/24/2012 MADL DOUBLE END PRODUCTION GRINDER, RICARDO L 716 .90 ARTHRITIS/ ARTHROPATHY, UNSPECIFIED 03/24/2012 MADL DOUBLE END PRODUCTION GRINDER, RICARDO L 244 .9 HYPOTHYROIDISM 03/24/2012 MADL DOUBLE END PRODUCTION GRINDER, RICARDO L 268 .9 VITAMIN D DEFICIENCY 03/24/2012 MADL DOUBLE END PRODUCTION GRINDER, RICARDO L 716 .90 ARTHRITIS/ ARTHROPATHY, UNSPECIFIED 03/24/2012 PORTER DO, BON K 244.9 HYPOTHYROIDISM 03/24/2012 PORTER DO, BON K 268.9 VITAMIN D DEFICIENCY 03/24/2012 PORTER DO, BON K 716.90 ARTHRITIS/ ARTHROPATHY, UNSPECIFIED 03/24/2012 MADL DOUBLE END PRODUCTION GRINDER, RICARDO L 244 .9 HYPOTHYROIDISM 03/24/2012 MADL DOUBLE END PRODUCTION GRINDER, RICARDO L 268 .9 VITAMIN D DEFICIENCY 03/24/2012 MADL DOUBLE END PRODUCTION GRINDER, RICARDO L 716 .90 ARTHRITIS/ ARTHROPATHY, UNSPECIFIED 03/24/2012 CHRISTIANO CARRERA PSYD ANN L 244.9 HYPOTHYROIDISM 03/24/2012 CHRISTIANO CARRERA PSYD ANN L 268.9 VITAMIN D DEFICIENCY 03/24/2012 CHRISTIANO CARRERA PSYD ANN L 716.90 ARTHRITIS/ ARTHROPATHY, UNSPECIFIED 03/24/2012 CHRISTIANO CARRERA PSYD ANN L 244.9 HYPOTHYROIDISM 03/24/2012 CHRISTIANO CARRERA PSYD ANN L 268.9 VITAMIN D DEFICIENCY 03/24/2012 CHRISTIANO CARRERA PSYD ANN L 716.90 ARTHRITIS/ ARTHROPATHY, UNSPECIFIED 06/30/2012 PORTER DO, BON K 466.0 BRONCHITIS, ACUTE 06/30/2012 PORTER DO, BON K 786.2 COUGH 06/30/2012 PORTER DO, BON K 466.0 BRONCHITIS, ACUTE 06/30/2012 PORTER DO, BON K 786.2 COUGH 06/30/2012 CHRISTIANO CARRERA PSYD ANN L 466.0 BRONCHITIS, ACUTE 06/30/2012 CHRISTIANO CARRERA PSYD ANN L 786.2 COUGH 06/30/2012 466.0 BRON CHITIS, ACUTE 06/30/2012 786.2 COUGH 06/30/2012 466.0 BRON CHITIS, ACUTE 06/30/2012 786.2 COUGH 06/30/2012 466.0 BRON CHITIS, ACUTE 06/30/2012 786.2 COUGH 06/30/2012 466.0 BRON CHITIS, ACUTE 06/30/2012 786.2 COUGH 06/30/2012 466.0 BRON CHITIS, ACUTE 06/30/2012 786.2 COUGH 06/30/2012 466.0 BRON CHITIS, ACUTE 06/30/2012 786.2 COUGH 06/30/2012 466.0 BRON CHITIS, ACUTE 06/30/2012 786.2 COUGH 06/30/2012 466.0 BRON CHITIS, ACUTE 06/30/2012 786.2 COUGH 06/30/2012 466.0 BRON CHITIS, ACUTE 06/30/2012 786.2 COUGH 06/30/2012 URBEN HILL APRN 466.0 BRONCHITIS, ACUTE 06/30/2012 RUBEN HILL APRN 786.2 COUGH 06/30/2012 HEMA CUTLER MD 466.0 BRONCHITIS, ACUTE 06/30/2012 HEMA CUTLER MD 786.2 COUGH 06/30/2012 DEANDRE FRANCO, PITO L 466.0 BRONCHITIS, ACUTE 06/30/2012 DEANDRE FRANCO, PITO L 786.2 COUGH 06/30/2012 LIZ JOAQUIN, RUBEN DARBY 466.0 BRONCHITIS, ACUTE 06/30/2012 LIZ DOUBLE END PRODUCTION GRINDER, RUBEN DARBY 786.2 COUGH 06/30/2012 NIKOLAI DOUBLE END PRODUCTION GRINDER, MEGAN T 46 6.0 BRONCHITIS, ACUTE 06/30/2012 NIKOALI DOUBLE END PRODUCTION GRINDER, MEGAN T 78 6.2 COUGH 06/30/2012 DEANDRE FRANCO, PITO L 466.0 BRONCHITIS, ACUTE 06/30/2012 DEANDRE FRANCO, PITO L 786.2 COUGH 06/30/2012 OMAYRA ANDERSON, HEMA M 466.0 BRONCHITIS, ACUTE 06/30/2012 OMAYRA ANDERSON, HEMA M 786.2 COUGH 06/30/2012 LIZ JOAQUIN, RUBEN DARBY 466.0 BRONCHITIS, ACUTE 06/30/2012 LZI DOUBLE END PRODUCTION GRINDER, RUBEN DARBY 786.2 COUGH 06/30/2012 MADL DOUBLE END PRODUCTION GRINDER, RICARDO L 466 .0 BRONCHITIS, ACUTE 06/30/2012 MADL DOUBLE END PRODUCTION GRINDER, RICARDO L 786 .2 COUGH 06/30/2012 MADL DOUBLE END PRODUCTION GRINDER, RICARDO L 466 .0 BRONCHITIS, ACUTE 06/30/2012 MADL DOUBLE END PRODUCTION GRINDER, RICARDO L 786 .2 COUGH 06/30/2012 MADL DOUBLE END PRODUCTION GRINDER, RICARDO L 466 .0 BRONCHITIS, ACUTE 06/30/2012 MADL DOUBLE END PRODUCTION GRINDER, RICARDO L 786 .2 COUGH 06/30/2012 MADL DOUBLE END PRODUCTION GRINDER, RICARDO L 466 .0 BRONCHITIS, ACUTE 06/30/2012 MADL DOUBLE END PRODUCTION GRINDER, RICARDO L 786 .2 COUGH 06/30/2012 MADL DOUBLE END PRODUCTION GRINDER, RICARDO L 466 .0 BRONCHITIS, ACUTE 06/30/2012 MADL DOUBLE END PRODUCTION GRINDER, RICARDO L 786 .2 COUGH 06/30/2012 MADL DOUBLE END PRODUCTION GRINDER, RICARDO L 466 .0 BRONCHITIS, ACUTE 06/30/2012 MADL DOUBLE END PRODUCTION GRINDER, RICARDO L 786 .2 COUGH 06/30/2012 CHRISTIANO CARRERA PSYD ANN L 466.0 BRONCHITIS, ACUTE 06/30/2012 DEANDRE FRANCO PITO L 786.2 COUGH 06/30/2012 MADL DOUBLE END PRODUCTION GRINDER, RICARDO L 466 .0 BRONCHITIS, ACUTE 06/30/2012 MADL DOUBLE END PRODUCTION GRINDER, RICARDO L 786 .2 COUGH 06/30/2012 MADL DOUBLE END PRODUCTION GRINDER, RICARDO L 466 .0 BRONCHITIS, ACUTE 06/30/2012 MADL DOUBLE END PRODUCTION GRINDER, RICARDO L 786 .2 COUGH 06/30/2012 PORTER DO, BON K 466.0 BRONCHITIS, ACUTE 06/30/2012 PORTER DO, BON K 786.2 COUGH 06/30/2012 CHRISTIANO CARRERA PSYD ANN L 466.0 BRONCHITIS, ACUTE 06/30/2012 CHRISTIANO CARRERA PSYD ANN L 786.2 COUGH 06/30/2012 MADL DOUBLE END PRODUCTION GRINDER, RICARDO L 466 .0 BRONCHITIS, ACUTE 06/30/2012 MADL DOUBLE END PRODUCTION GRINDER, RICARDO L 786 .2 COUGH 06/30/2012 MADL DOUBLE END PRODUCTION GRINDER, RICARDO L 466 .0 BRONCHITIS, ACUTE 06/30/2012 MADL DOUBLE END PRODUCTION GRINDER, RICARDO L 786 .2 COUGH 06/30/2012 MADL DOUBLE END PRODUCTION GRINDER, RICARDO L 466 .0 BRONCHITIS, ACUTE 06/30/2012 MADL DOUBLE END PRODUCTION GRINDER, RICARDO L 786 .2 COUGH 06/30/2012 CHRISTIANO CARRERA PSYD L 466.0 BRONCHITIS, ACUTE 06/30/2012 CHRISTIANO CARRERA PSYD ANN L 786.2 COUGH 06/30/2012 MADL DOUBLE END PRODUCTION GRINDER, RICARDO L 466 .0 BRONCHITIS, ACUTE 06/30/2012 MADL DOUBLE END PRODUCTION GRINDER, RICARDO L 786 .2 COUGH 06/30/2012 MADL DOUBLE END PRODUCTION GRINDER, RICARDO L 466 .0 BRONCHITIS, ACUTE 06/30/2012 MADL DOUBLE END PRODUCTION GRINDER, RICARDO L 786 .2 COUGH 06/30/2012 MADL DOUBLE END PRODUCTION GRINDER, RICARDO L 466 .0 BRONCHITIS, ACUTE 06/30/2012 MADL DOUBLE END PRODUCTION GRINDER, RICARDO L 786 .2 COUGH 06/30/2012 PORTER DO, BON K 466.0 BRONCHITIS, ACUTE 06/30/2012 PORTER DO, BON K 786.2 COUGH 06/30/2012 MADL DOUBLE END PRODUCTION GRINDER, RICARDO L 466 .0 BRONCHITIS, ACUTE 06/30/2012 MADL DOUBLE END PRODUCTION GRINDER, RICARDO L 786 .2 COUGH 06/30/2012 CHRISTIANO CARRERA PSYD L 466.0 BRONCHITIS, ACUTE 06/30/2012 CHRISTIANO CARRERA PSYD L 786.2 COUGH 07/16/2012 PORTER BON RUSHING K 724.2 LUMBAGO/ LOW BACK PAIN 07/16/2012 CHRISTIANO CARRERA PSYD L 724.2 LUMBAGO/ LOW BACK PAIN 07/16/2012 724.2 LUMB AGO/ LOW BACK PAIN 07/16/2012 724.2 lowe r back pain 07/16/2012 724.2 lowe r back pain 07/16/2012 724.2 lowe r back pain 07/16/2012 724.2 lowe r back pain 07/16/2012 724.2 lowe r back pain 07/16/2012 724.2 lowe r back pain 07/16/2012 724.2 lowe r back pain 07/16/2012 724.2 lowe r back pain 07/16/2012 RUBEN HILL APRN 724.2 lower back pain 07/16/2012 HEMA CUTLER MD 724.2 lower back pain 07/16/2012 CHRISTIANO CARRERA PSYD 724.2 lower back pain 07/16/2012 RUBEN HILL APRN 724.2 lower back pain 07/16/2012 MEGAN MENCHACA APRN 72 4.2 lower back pain 07/16/2012 CHRISTIANO CARRERA PSYD 724.2 lower back pain 07/16/2012 HEMA CUTLER MD 724.2 lower back pain 07/16/2012 RUBEN HILL APRN 724.2 lower back pain 07/16/2012 KEN DOUBLE END PRODUCTION GRINDER, RICARDO L 724 .2 lower back pain 07/16/2012 MADL DOUBLE END PRODUCTION GRINDER, RICARDO L 724 .2 lower back pain 07/16/2012 MADL DOUBLE END PRODUCTION GRINDER, RICARDO L 724 .2 lower back pain 07/16/2012 MADL DOUBLE END PRODUCTION GRINDER, RICARDO L 724 .2 lower back pain 07/16/2012 MADL DOUBLE END PRODUCTION GRINDER, RICARDO L 724 .2 lower back pain 07/16/2012 MADL DOUBLE END PRODUCTION GRINDER, RICARDO L 724 .2 lower back pain 07/16/2012 CHRISTIANO CARRERA PSYD L 724.2 lower back pain 07/16/2012 MADL DOUBLE END PRODUCTION GRINDER, RICARDO L 724 .2 lower back pain 07/16/2012 MADL DOUBLE END PRODUCTION GRINDER, RICARDO L 724 .2 lower back pain 07/16/2012 PORTER DO, BON K 724.2 lower back pain 07/16/2012 CHRISTIANO CARRERA PSYD ANN L 724.2 lower back pain 07/16/2012 MADL DOUBLE END PRODUCTION GRINDER, RICARDO L 724 .2 lower back pain 07/16/2012 MADL DOUBLE END PRODUCTION GRINDER, RICARDO L 724 .2 lower back pain 07/16/2012 MADL DOUBLE END PRODUCTION GRINDER, RICARDO L 724 .2 lower back pain 07/16/2012 CHRISTIANO CARRERA PSYD L 724.2 lower back pain 07/16/2012 MADL DOUBLE END PRODUCTION GRINDER, RICARDO L 724 .2 lower back pain 07/16/2012 MADL DOUBLE END PRODUCTION GRINDER, RICARDO L 724 .2 lower back pain 07/16/2012 MADL DOUBLE END PRODUCTION GRINDER, RICARDO L 724 .2 lower back pain 07/16/2012 PORTER DO, BON K 724.2 lower back pain 07/16/2012 MADL DOUBLE END PRODUCTION GRINDER, RICARDO L 724 .2 lower back pain 07/16/2012 CHRISTIANO CARRERA PSYD L 724.2 lower back pain 11/10/2012 599.0 URIN DAMIEN TRACT INFECTION 11/10/2012 599.0 URIN DAMIEN TRACT INFECTION 11/10/2012 599.0 URIN DAMIEN TRACT INFECTION 11/10/2012 RUBEN HILL APRN 599.0 URINARY TRACT INFECTION 11/10/2012 OMAYRA ANDERSON, HEMA Perry 599.0 URINARY TRACT INFECTION 11/10/2012 CHRISTIANO CARRERA PSYD L 599.0 URINARY TRACT INFECTION 11/10/2012 RUBEN HILL APRN 599.0 URINARY TRACT INFECTION 11/10/2012 MEGAN MENCHACA APRN 59 9.0 URINARY TRACT INFECTION 11/10/2012 CHRISTIANO CARRERA PSYD L 599.0 URINARY TRACT INFECTION 11/10/2012 OMAYRA ANDERSON, HEMA M 599.0 URINARY TRACT INFECTION 11/10/2012 RUBEN HILL APRN 599.0 URINARY TRACT INFECTION 11/10/2012 MADL DOUBLE END PRODUCTION GRINDER, RICARDO L 599 .0 URINARY TRACT INFECTION 11/10/2012 MADL DOUBLE END PRODUCTION GRINDER, RICARDO L 599 .0 URINARY TRACT INFECTION 11/10/2012 MADL DOUBLE END PRODUCTION GRINDER, RICARDO L 599 .0 URINARY TRACT INFECTION 11/10/2012 MADL DOUBLE END PRODUCTION GRINDER, RICARDO L 599 .0 URINARY TRACT INFECTION 11/10/2012 MADL DOUBLE END PRODUCTION GRINDER, RICARDO L 599 .0 URINARY TRACT INFECTION 11/10/2012 MADL DOUBLE END PRODUCTION GRINDER, RICARDO L 599 .0 URINARY TRACT INFECTION 11/10/2012 CHRISTIANO CARRERA PSYD L 599.0 URINARY TRACT INFECTION 11/10/2012 MADL DOUBLE END PRODUCTION GRINDER, RICARDO L 599 .0 URINARY TRACT INFECTION 11/10/2012 MADL DOUBLE END PRODUCTION GRINDER, RICARDO L 599 .0 URINARY TRACT INFECTION 11/10/2012 PORTER DO, BON K 599.0 URINARY TRACT INFECTION 11/10/2012 CHRISTIANO CARRERA PSYD L 599.0 URINARY TRACT INFECTION 11/10/2012 MADL DOUBLE END PRODUCTION GRINDER, RICARDO L 599 .0 URINARY TRACT INFECTION 11/10/2012 MADL DOUBLE END PRODUCTION GRINDER, RICARDO L 599 .0 URINARY TRACT INFECTION 11/10/2012 MADL DOUBLE END PRODUCTION GRINDER, RICARDO L 599 .0 URINARY TRACT INFECTION 11/10/2012 CHRISTIANO CARRERA PSYD L 599.0 URINARY TRACT INFECTION 11/10/2012 MADL DOUBLE END PRODUCTION GRINDER, RICARDO L 599 .0 URINARY TRACT INFECTION 11/10/2012 MADL DOUBLE END PRODUCTION GRINDER, RICARDO L 599 .0 URINARY TRACT INFECTION 11/10/2012 MADL DOUBLE END PRODUCTION GRINDER, RICARDO L 599 .0 URINARY TRACT INFECTION 11/10/2012 PORTER DO, BON K 599.0 URINARY TRACT INFECTION 11/10/2012 MADL DOUBLE END PRODUCTION GRINDER, RICARDO L 599 .0 URINARY TRACT INFECTION 11/10/2012 CHRISTIANO CARRERA PSYD L 599.0 URINARY TRACT INFECTION 04/28/2013 NIKOLAI DOUBLE END PRODUCTION GRINDER, MEGAN T 380.10 OTITIS EXTERNA RIGHT 04/28/2013 CHRISTIANO CARRERA PSYD L 380.10 OTITIS EXTERNA RIGHT 04/28/2013 OMAYRA ANDERSON, HEMA Perry 380.10 OTITIS EXTERNA RIGHT 04/28/2013 LIZ DOUBLE END PRODUCTION GRINDER, RUBEN DARBY 380.10 OTITIS EXTERNA RIGHT 04/28/2013 MADL DOUBLE END PRODUCTION GRINDER, RICARDO L 380 .10 OTITIS EXTERNA RIGHT 04/28/2013 MADL DOUBLE END PRODUCTION GRINDER, RICARDO L 380 .10 OTITIS EXTERNA RIGHT 04/28/2013 MADL DOUBLE END PRODUCTION GRINDER, RICARDO L 380 .10 OTITIS EXTERNA RIGHT 04/28/2013 MADL DOUBLE END PRODUCTION GRINDER, RICARDO L 380 .10 OTITIS EXTERNA RIGHT 04/28/2013 MADL DOUBLE END PRODUCTION GRINDER, RICARDO L 380 .10 OTITIS EXTERNA RIGHT 04/28/2013 MADL DOUBLE END PRODUCTION GRINDER, RICARDO L 380 .10 OTITIS EXTERNA RIGHT 04/28/2013 CHRISTIANO CARRERA PSYD L 380.10 OTITIS EXTERNA RIGHT 04/28/2013 MADL DOUBLE END PRODUCTION GRINDER, RICARDO L 380 .10 OTITIS EXTERNA RIGHT 04/28/2013 MADL DOUBLE END PRODUCTION GRINDER, RICARDO L 380 .10 OTITIS EXTERNA RIGHT 04/28/2013 BON PORTER DO 380.10 OTITIS EXTERNA RIGHT 04/28/2013 CHRISTIANO CARRERA PSYD L 380.10 OTITIS EXTERNA RIGHT 04/28/2013 MADL DOUBLE END PRODUCTION GRINDER, RICARDO L 380 .10 OTITIS EXTERNA RIGHT 04/28/2013 MADL DOUBLE END PRODUCTION GRINDER, RICARDO L 380 .10 OTITIS EXTERNA RIGHT 04/28/2013 MADL DOUBLE END PRODUCTION GRINDER, RICARDO L 380 .10 OTITIS EXTERNA RIGHT 04/28/2013 CHRISTIANO CARRERA PSYD L 380.10 OTITIS EXTERNA RIGHT 04/28/2013 MADL DOUBLE END PRODUCTION GRINDER, RICARDO L 380 .10 OTITIS EXTERNA RIGHT 04/28/2013 MADL DOUBLE END PRODUCTION GRINDER, RICARDO L 380 .10 OTITIS EXTERNA RIGHT 04/28/2013 MADL DOUBLE END PRODUCTION GRINDER, RICARDO L 380 .10 OTITIS EXTERNA RIGHT 04/28/2013 BON PORTER DO K 380.10 OTITIS EXTERNA RIGHT 04/28/2013 MADL DOUBLE END PRODUCTION GRINDER, RICARDO L 380 .10 OTITIS EXTERNA RIGHT 04/28/2013 CHRISTIANO CARRERA PSYD L 380.10 OTITIS EXTERNA RIGHT 07/06/2013 HEMA CUTLER MD 296.80 MO BIPOLAR NOS 07/06/2013 HEMA CUTLER MD 382.00 OTITIS MEDIA ACUTE SUPPURATIVE 07/06/2013 HILL DOUBLE END PRODUCTION GRINDERRUBEN 296.80 MO BIPOLAR NOS 07/06/2013 HILL DOUBLE END PRODUCTION GRINDER, RUBEN DARBY 382.00 OTITIS MEDIA ACUTE SUPPURATIVE 07/06/2013 MADL DOUBLE END PRODUCTION GRINDER, RICARDO L 296 .80 MO BIPOLAR NOS 07/06/2013 MADL DOUBLE END PRODUCTION GRINDER, RICARDO L 382 .00 OTITIS MEDIA ACUTE SUPPURATIVE 07/06/2013 MADL DOUBLE END PRODUCTION GRINDER, RICARDO L 296 .80 MO BIPOLAR NOS 07/06/2013 MADL DOUBLE END PRODUCTION GRINDER, RICARDO L 382 .00 OTITIS MEDIA ACUTE SUPPURATIVE 07/06/2013 MADL DOUBLE END PRODUCTION GRINDER, RICARDO L 296 .80 MO BIPOLAR NOS 07/06/2013 MADL DOUBLE END PRODUCTION GRINDER, RICARDO L 382 .00 OTITIS MEDIA ACUTE SUPPURATIVE 07/06/2013 MADL DOUBLE END PRODUCTION GRINDER, RICARDO L 296 .80 MO BIPOLAR NOS 07/06/2013 MADL DOUBLE END PRODUCTION GRINDER, RICARDO L 382 .00 OTITIS MEDIA ACUTE SUPPURATIVE 07/06/2013 MADL DOUBLE END PRODUCTION GRINDER, RICARDO L 296 .80 MO BIPOLAR NOS 07/06/2013 MADL DOUBLE END PRODUCTION GRINDER, RICARDO L 382 .00 OTITIS MEDIA ACUTE SUPPURATIVE 07/06/2013 MADL DOUBLE END PRODUCTION GRINDER, RICARDO L 296 .80 MO BIPOLAR NOS 07/06/2013 MADL DOUBLE END PRODUCTION GRINDER, RICARDO L 382 .00 OTITIS MEDIA ACUTE SUPPURATIVE 07/06/2013 CHRISTIANO CARRERA PSYD ANN L 296.80 MO BIPOLAR NOS 07/06/2013 CHRISTIANO CARRERA PSYD ANN L 382.00 OTITIS MEDIA ACUTE SUPPURATIVE 07/06/2013 MADL DOUBLE END PRODUCTION GRINDER, RICARDO L 296 .80 MO BIPOLAR NOS 07/06/2013 MADL DOUBLE END PRODUCTION GRINDER, RICARDO L 382 .00 OTITIS MEDIA ACUTE SUPPURATIVE 07/06/2013 MADL DOUBLE END PRODUCTION GRINDER, RICARDO L 296 .80 MO BIPOLAR NOS 07/06/2013 MADL DOUBLE END PRODUCTION GRINDER, RICARDO L 382 .00 OTITIS MEDIA ACUTE SUPPURATIVE 07/06/2013 PORTER DO, BON K 296.80 MO BIPOLAR NOS 07/06/2013 PORTER DO, BON K 382.00 OTITIS MEDIA ACUTE SUPPURATIVE 07/06/2013 CHRISTIANO CARRERA PSYD ANN L 296.80 MO BIPOLAR NOS 07/06/2013 CHRISTIANO CARRERA PSYD ANN L 382.00 OTITIS MEDIA ACUTE SUPPURATIVE 07/06/2013 MADL DOUBLE END PRODUCTION GRINDER, RICARDO L 296 .80 MO BIPOLAR NOS 07/06/2013 MADL DOUBLE END PRODUCTION GRINDER, RICARDO L 382 .00 OTITIS MEDIA ACUTE SUPPURATIVE 07/06/2013 MADL DOUBLE END PRODUCTION GRINDER, RICARDO L 296 .80 MO BIPOLAR NOS 07/06/2013 MADL DOUBLE END PRODUCTION GRINDER, RICARDO L 382 .00 OTITIS MEDIA ACUTE SUPPURATIVE 07/06/2013 MADL DOUBLE END PRODUCTION GRINDER, RICARDO L 296 .80 MO BIPOLAR NOS 07/06/2013 MADL DOUBLE END PRODUCTION GRINDER, RICARDO L 382 .00 OTITIS MEDIA ACUTE SUPPURATIVE 07/06/2013 CHRISTIANO CARRERA PSYD ANN L 296.80 MO BIPOLAR NOS 07/06/2013 CHRISTIANO CARRERA PSYD ANN L 382.00 OTITIS MEDIA ACUTE SUPPURATIVE 07/06/2013 MADL DOUBLE END PRODUCTION GRINDER, RICARDO L 296 .80 MO BIPOLAR NOS 07/06/2013 MADL DOUBLE END PRODUCTION GRINDER, RICARDO L 382 .00 OTITIS MEDIA ACUTE SUPPURATIVE 07/06/2013 MADL DOUBLE END PRODUCTION GRINDER, RICARDO L 296 .80 MO BIPOLAR NOS 07/06/2013 MADL DOUBLE END PRODUCTION GRINDER, RICARDO L 382 .00 OTITIS MEDIA ACUTE SUPPURATIVE 07/06/2013 MADL DOUBLE END PRODUCTION GRINDER, RICARDO L 296 .80 MO BIPOLAR NOS 07/06/2013 MADL DOUBLE END PRODUCTION GRINDER, RICARDO L 382 .00 OTITIS MEDIA ACUTE SUPPURATIVE 07/06/2013 PORTER DO, BNO K 296.80 MO BIPOLAR NOS 07/06/2013 PORTER DO, BON K 382.00 OTITIS MEDIA ACUTE SUPPURATIVE 07/06/2013 MADL DOUBLE END PRODUCTION GRINDER, RICARDO L 296 .80 MO BIPOLAR NOS 07/06/2013 MADL DOUBLE END PRODUCTION GRINDER, RICARDO L 382 .00 OTITIS MEDIA ACUTE SUPPURATIVE 07/06/2013 CHRISTIANO CARRERA PSYD L 296.80 MO BIPOLAR NOS 07/06/2013 CHRISTIANO CARRERA PSYD L 382.00 OTITIS MEDIA ACUTE SUPPURATIVE 10/06/2013 MADL DOUBLE END PRODUCTION GRINDER, RICARDO L 461 .9 SINUSITIS ACUTE 10/06/2013 MADL DOUBLE END PRODUCTION GRINDER, RICARDO L 461 .9 SINUSITIS ACUTE 10/06/2013 MADL DOUBLE END PRODUCTION GRINDER, RICARDO L 461 .9 SINUSITIS ACUTE 10/06/2013 MADL DOUBLE END PRODUCTION GRINDER, RICARDO L 461 .9 SINUSITIS ACUTE 10/06/2013 MADL DOUBLE END PRODUCTION GRINDER, RICARDO L 461 .9 SINUSITIS ACUTE 10/06/2013 MADL DOUBLE END PRODUCTION GRINDER, RICARDO L 461 .9 SINUSITIS ACUTE 10/06/2013 CHRISTIANO CARRERA PSYD L 461.9 SINUSITIS ACUTE 10/06/2013 MADL DOUBLE END PRODUCTION GRINDER, RICARDO L 461 .9 SINUSITIS ACUTE 10/06/2013 MADL DOUBLE END PRODUCTION GRINDER, RICARDO L 461 .9 SINUSITIS ACUTE 10/06/2013 PORTER DO, BON K 461.9 SINUSITIS ACUTE 10/06/2013 CHRISTIANO CARRERA PSYD L 461.9 SINUSITIS ACUTE 10/06/2013 MADL DOUBLE END PRODUCTION GRINDER, RICARDO L 461 .9 SINUSITIS ACUTE 10/06/2013 MADL DOUBLE END PRODUCTION GRINDER, RICARDO L 461 .9 SINUSITIS ACUTE 10/06/2013 MADL DOUBLE END PRODUCTION GRINDER, RICARDO L 461 .9 SINUSITIS ACUTE 10/06/2013 CHRISTIANO CARRERA PSYD L 461.9 SINUSITIS ACUTE 10/06/2013 MADL DOUBLE END PRODUCTION GRINDER, RICARDO L 461 .9 SINUSITIS ACUTE 10/06/2013 MADL DOUBLE END PRODUCTION GRINDER, RICARDO L 461 .9 SINUSITIS ACUTE 10/06/2013 MADL DOUBLE END PRODUCTION GRINDER, RICARDO L 461 .9 SINUSITIS ACUTE 10/06/2013 PORTER DO, BON K 461.9 SINUSITIS ACUTE 10/06/2013 MADL DOUBLE END PRODUCTION GRINDER, RICARDO L 461 .9 SINUSITIS ACUTE 10/06/2013 CHRISTIANO CARRERA PSYD L 461.9 SINUSITIS ACUTE 11/05/2013 MADL DOUBLE END PRODUCTION GRINDER, RICARDO L 782 .3 EDEMA 11/05/2013 MADL DOUBLE END PRODUCTION GRINDER, RICARDO L 782 .3 EDEMA 11/05/2013 MADL DOUBLE END PRODUCTION GRINDER, RICARDO L 782 .3 EDEMA 11/05/2013 MADL DOUBLE END PRODUCTION GRINDER, RICARDO L 782 .3 EDEMA 11/05/2013 MADL DOUBLE END PRODUCTION GRINDER, RICARDO L 782 .3 EDEMA 11/05/2013 CHRISTIANO CARRERA PSYD L 782.3 EDEMA 11/05/2013 MADL DOUBLE END PRODUCTION GRINDER, RICARDO L 782 .3 EDEMA 11/05/2013 MADL DOUBLE END PRODUCTION GRINDER, RICARDO L 782 .3 EDEMA 11/05/2013 PORTER DO BON K 782.3 EDEMA 11/05/2013 CHRISTIANO CARRERA PSYD L 782.3 EDEMA 11/05/2013 MADL DOUBLE END PRODUCTION GRINDER, RICARDO L 782 .3 EDEMA 11/05/2013 MADL DOUBLE END PRODUCTION GRINDER, RICARDO L 782 .3 EDEMA 11/05/2013 MADL DOUBLE END PRODUCTION GRINDER, RICARDO L 782 .3 EDEMA 11/05/2013 CHRISTIANO CARRERA PSYD L 782.3 EDEMA 11/05/2013 MADL DOUBLE END PRODUCTION GRINDER, RICARDO L 782 .3 EDEMA 11/05/2013 MADL DOUBLE END PRODUCTION GRINDER, RICARDO L 782 .3 EDEMA 11/05/2013 MADL DOUBLE END PRODUCTION GRINDER, RICARDO L 782 .3 EDEMA 11/05/2013 PORTER DO BON K 782.3 EDEMA 11/05/2013 MADL DOUBLE END PRODUCTION GRINDER, RICARDO L 782 .3 EDEMA 11/05/2013 CHRISTIANO CARRERA PSYD L 782.3 EDEMA 11/24/2013 MADL DOUBLE END PRODUCTION GRINDER, RICARDO L 686 .8 OTHER SPECIFIED LOCAL INFECTIONS OF SKIN AND SUBCUTANEOUS TISSUE 11/24/2013 MADL DOUBLE END PRODUCTION GRINDER, RICARDO L 686 .8 OTHER SPECIFIED LOCAL INFECTIONS OF SKIN AND SUBCUTANEOUS TISSUE 11/24/2013 CHRISTIANO CARRERA PSYD L 686.8 OTHER SPECIFIED LOCAL INFECTIONS OF SKIN AND SUBCUTANE OUS TISSUE 11/24/2013 MADL DOUBLE END PRODUCTION GRINDER, RICARDO L 686 .8 OTHER SPECIFIED LOCAL INFECTIONS OF SKIN AND SUBCUTANEOUS TISSUE 11/24/2013 MADL DOUBLE END PRODUCTION GRINDER, RICARDO L 686 .8 OTHER SPECIFIED LOCAL INFECTIONS OF SKIN AND SUBCUTANEOUS TISSUE 11/24/2013 BON PORTER DO K 686.8 OTHER SPECIFIED LOCAL INFECTIONS OF SKIN AND SUBCUTANEOUS TISSUE 11/24/2013 CHRISTIANO CARRERA PSYD L 686.8 OTHER SPECIFIED LOCAL INFECTIONS OF SKIN AND SUBCUTANE OUS TISSUE 11/24/2013 MADL DOUBLE END PRODUCTION GRINDER, RICARDO L 686 .8 OTHER SPECIFIED LOCAL INFECTIONS OF SKIN AND SUBCUTANEOUS TISSUE 11/24/2013 MADL DOUBLE END PRODUCTION GRINDER, RICARDO L 686 .8 OTHER SPECIFIED LOCAL INFECTIONS OF SKIN AND SUBCUTANEOUS TISSUE 11/24/2013 MADL DOUBLE END PRODUCTION GRINDER, RICARDO L 686 .8 OTHER SPECIFIED LOCAL INFECTIONS OF SKIN AND SUBCUTANEOUS TISSUE 11/24/2013 CHRISTIANO CARRERA PSYD L 686.8 OTHER SPECIFIED LOCAL INFECTIONS OF SKIN AND SUBCUTANE OUS TISSUE 11/24/2013 MADL DOUBLE END PRODUCTION GRINDER, RICARDO L 686 .8 OTHER SPECIFIED LOCAL INFECTIONS OF SKIN AND SUBCUTANEOUS TISSUE 11/24/2013 MADL DOUBLE END PRODUCTION GRINDER, RICARDO L 686 .8 OTHER SPECIFIED LOCAL INFECTIONS OF SKIN AND SUBCUTANEOUS TISSUE 11/24/2013 MADL DOUBLE END PRODUCTION GRINDER, RICARDO L 686 .8 OTHER SPECIFIED LOCAL INFECTIONS OF SKIN AND SUBCUTANEOUS TISSUE 11/24/2013 BON PORTER DO K 686.8 OTHER SPECIFIED LOCAL INFECTIONS OF SKIN AND SUBCUTANEOUS TISSUE 11/24/2013 MADL DOUBLE END PRODUCTION GRINDER, RICARDO L 686 .8 OTHER SPECIFIED LOCAL INFECTIONS OF SKIN AND SUBCUTANEOUS TISSUE 11/24/2013 CHRISTIANO CARRERA PSYD L 686.8 OTHER SPECIFIED LOCAL INFECTIONS OF SKIN AND SUBCUTANE OUS TISSUE 02/07/2014 MADL DOUBLE END PRODUCTION GRINDER, RICARDO L 787 .02 NAUSEA ALONE 02/07/2014 MADL DOUBLE END PRODUCTION GRINDER, RICARDO L 787 .02 NAUSEA ALONE 02/07/2014 MADL DOUBLE END PRODUCTION GRINDER, RICARDO L 787 .02 NAUSEA ALONE 02/07/2014 CHRISTIANO CARRERA PSYD L 787.02 NAUSEA ALONE 02/07/2014 MADL DOUBLE END PRODUCTION GRINDER, RICARDO L 787 .02 NAUSEA ALONE 02/07/2014 MADL DOUBLE END PRODUCTION GRINDER, RICARDO L 787 .02 NAUSEA ALONE 02/07/2014 KEN JOAQUIN, RICARDO L 787 .02 NAUSEA ALONE 02/07/2014 BON PORTER DO K 787.02 NAUSEA ALONE 02/07/2014 KEN JOAQUIN, RICARDO L 787 .02 NAUSEA ALONE 02/07/2014 CHRISTIANO CARRERA PSYD 787.02 NAUSEA ALONE 04/18/2014 LYNN ROGERS APRNNYA L 296 .34 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 04/18/2014 MADL JEMAL, RICARDO L 296 .34 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 04/18/2014 LYNN ROGERS APRNNYA L 296 .34 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 04/18/2014 BON PORTER DO K 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 04/18/2014 LYNN ROGERS APRNNYA L 296 .34 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 04/18/2014 CHRISTIANO CARRERA PSYD 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 06/20/2014 KEN KUMARNANDREWA L 789 .01 ABDOMINAL PAIN RIGHT UPPER QUADRANT 06/20/2014 BON PORTER DO K 789.01 ABDOMINAL PAIN RIGHT UPPER QUADRANT 06/20/2014 KEN KUMARRen RICARDO L 789 .01 ABDOMINAL PAIN RIGHT UPPER QUADRANT 06/20/2014 CHRISTIANO CARRERA PSYD 789.01 ABDOMINAL PAIN RIGHT UPPER QUADRANT 07/18/2014 BON PORTER DO K 575.8 OTHER SPECIFIED DISORDERS OF GALLBLADDER 07/18/2014 RICARDO ROGERS APRN 575 .8 OTHER SPECIFIED DISORDERS OF GALLBLADDER 07/18/2014 CHRISTIANO CARRERA PSYD 575.8 OTHER SPECIFIED DISORDERS OF GALLBLADDER 08/23/2014 RICARDO ROGERS APRN 460 ACUTE NASOPHARYNGITIS (COMMON COLD) 08/23/2014 CHRISTIANO CARRERA PSYD 460 ACUTE NASOPHARYNGITIS (COMMON COLD) Procedures Code Description Performed By [place] [id number] HARRY V PSYTX 45/50 MIN 03/12/2012 39239 CULT URE WOUND (AEROBIC) 03/12/2012 61858 ROUT INE VENIPUNCTURE 03/25/2012 12412 ESR/ SED RATE 03/25/2012 71924 CBC 03/25/2012 89962 CMP 03/25/2012 26268 LIPI D PANEL 03/25/2012 [id number] GF R CALC (RESULT ONLY) 03/25/2012 30541 CRP 03/26/2012 67401 WILLOW MIN D 25-HYDROXY (D2,D3, TOTAL) 03/26/2012 43854 TSH 03/26/2012 75526 URIC ACID 03/26/2012 94925 ASO 03/26/2012 31819 RA FACTOR 03/26/2012 ANAANA [place] ANALYZER (SCREEN) 03/26/2012 34390 HARRY V PSYTX 45/50 MIN 03/27/2012 54141 HARRY V PSYTX 45/50 MIN 04/08/2012 61106 HARRY V PSYTX 45/50 MIN 04/22/2012 88669 XRAY CHEST 2 VIEW 06/30/2012 05398 XRAY LUMBAR SPINE 2 OR 3 VIEWS 07/16/2012 62059 MRI SPINE (LUMBAR) W & W/O CONTRAST 07/16/2012 01174 PSYC H PHARM MGMT 07/17/2012 15767 PSYT X PT&/FAMILY 45 MINUTES 07/28/2012 15736 ROUT INE VENIPUNCTURE 08/26/2012 83318 URIN E DRUG SCREEN (IN-HOUSE) 08/26/2012 97355 LIVE R PANEL (LFT) 08/26/2012 69351 T4 FREE 08/27/2012 50794 TSH 08/27/2012 31098 HEPA TITIS PROFILE 08/27/2012 73203 ROUT INE VENIPUNCTURE 10/13/2012 09113 URIN E DRUG SCREEN (IN-HOUSE) 10/13/2012 92601 WILLOW MIN D 25-HYDROXY (D2,D3, TOTAL) 10/13/2012 62057 TSH 10/13/2012 80077 T4 FREE 10/13/2012 65414 URIN E DRUG SCREEN (IN-HOUSE) 11/10/2012 49485 MRI SPINE (LUMBAR) W/O CONTRAST 11/13/2012 43197 PSYT X PT&/FAMILY 45 MINUTES 12/31/2012 89878 ROUT INE VENIPUNCTURE 02/12/2013 13929 TSH 02/12/2013 34713 T4 FREE 02/12/2013 99555 PSYT X PT&/FAMILY 45 MINUTES 03/16/2013 05893 URIN E DRUG SCREEN (IN-HOUSE) 03/16/2013 87192 PSYT X PT&/FAMILY 45 MINUTES 05/27/2013 17879 ROUT INE VENIPUNCTURE 07/06/2013 40856 URIN E DRUG SCREEN (IN-HOUSE) 07/06/2013 03733 T4 FREE 07/06/2013 92417 TSH 07/06/2013 07645 ROUT INE VENIPUNCTURE 10/06/2013 1205174 GF R CALC (RESULT ONLY) 10/06/2013 68548 CMP 10/06/2013 51124 TSH 10/06/2013 69061 ROUT INE VENIPUNCTURE 11/22/2013 73052 CBC 11/22/2013 59562 I/D SIMPLE ABSCESS 11/24/2013 16772 PSYT X PT&/FAMILY 45 MINUTES 12/02/2013 91510 ROUT INE VENIPUNCTURE 01/05/2014 [id number] GF R CALC (RESULT ONLY) 01/05/2014 54095 BMP 01/05/2014 10461 TSH 01/05/2014 25690 PSYT X PT&/FAMILY 45 MINUTES 02/03/2014 37731 PSYT X PT&/FAMILY 45 MINUTES 04/05/2014 39408 ROUT INE VENIPUNCTURE 06/20/2014 [id number] GF R CALC (RESULT ONLY) 06/20/2014 01203 CMP 06/20/2014 74071 TSH 06/20/2014 54307 HIDA SCAN 06/21/2014 06954 PSYT X PT&/FAMILY 45 MINUTES 09/02/2014 Results Test Result Range CBC With Differential/Platelet - 6 10:54 WBC 14.5 x10E3/uL 3.4-10.8 RBC 4.24 x10E6/uL 3.77-5.28 Hemoglobin 13.3 g/dL 11.1-15.9 Hematocrit 39.8 % 34.0-46.6 MCV 94 fL 79-97 MCH 31.4 pg 26.6-33.0 MCHC 33.4 g/dL 31.5-35.7 RDW 14.2 % 12.3-15.4 Platelets 456 x10E3/uL 150-379 Neutrophils 60 % Lymphs 30 % Monocytes 5 % Eos 3 % Basos 1 % Neutrophils (Absolute) 8.8 x10E3/uL 1.4- 7.0 Lymphs (Absolute) 4.4 x10E3/uL 0.7-3.1 Monocytes(Absolute) 0.7 x10E3/uL 0.1-0.9 Eos (Absolute) 0.4 x10E3/uL 0.0-0.4 Baso (Absolute) 0.1 x10E3/uL 0.0-0.2 Immature Granulocytes 1 % Immature Grans (Abs) 0.1 x10E3/uL 0.0-0. 1 Comp. Metabolic Panel () - 04/24/16 10 :54 Glucose, Serum 141 mg/dL 65-99 BUN 15 mg/dL 6-24 Creatinine, Serum 0.81 mg/dL 0.57-1.00 eGFR If NonAfricn Am 91 mL/min/1.73 >59 eGFR If Africn Am 105 mL/min/1.73 >5 9 BUN/Creatinine Ratio 19 9-23 Sodium, Serum 141 mmol/L 134-144 Potassium, Serum 3.7 mmol/L 3.5-5.2 Chloride, Serum 99 mmol/L 96-106 Carbon Dioxide, Total 27 mmol/L 18-29 Calcium, Serum 9.1 mg/dL 8.7-10.2 Protein, Total, Serum 6.9 g/dL 6.0-8.5 Albumin, Serum 4.4 g/dL 3.5-5.5 Globulin, Total 2.5 g/dL 1.5-4.5 A/G Ratio 1.8 1.1-2.5 Bilirubin, Total 0.5 mg/dL 0.0-1.2 Alkaline Phosphatase, S 74 IU/L 39-117 AST (SGOT) 38 IU/L 0-40 ALT (SGPT) 57 IU/L 0-32 Lipid Panel - 04/24/16 10:54 Cholesterol, Total 285 mg/dL 100-199 Triglycerides 184 mg/dL 0-149 HDL Cholesterol 52 mg/dL >39 VLDL Cholesterol James 37 mg/dL 5-40 LDL Cholesterol Calc 196 mg/dL 0-99 Comment: Comment TSH - 04/24/16 10:54 TSH 1.380 uIU/mL 0.450-4.500 Comp. Metabolic Panel () - 05/07/16 09 :41 Glucose, Serum 99 mg/dL 65-99 BUN 9 mg/dL 6-24 Creatinine, Serum 0.61 mg/dL 0.57-1.00 eGFR If NonAfricn Am 114 mL/min/1.73 >59 eGFR If Africn Am 131 mL/min/1.73 >5 9 BUN/Creatinine Ratio 15 9-23 Sodium, Serum 142 mmol/L 134-144 Potassium, Serum 4.3 mmol/L 3.5-5.2 Chloride, Serum 101 mmol/L 96-106 Carbon Dioxide, Total 24 mmol/L 18-29 Calcium, Serum 8.9 mg/dL 8.7-10.2 Protein, Total, Serum 6.5 g/dL 6.0-8.5 Albumin, Serum 4.1 g/dL 3.5-5.5 Globulin, Total 2.4 g/dL 1.5-4.5 A/G Ratio 1.7 1.1-2.5 Bilirubin, Total 0.3 mg/dL 0.0-1.2 Alkaline Phosphatase, S 73 IU/L 39-117 AST (SGOT) 24 IU/L 0-40 ALT (SGPT) 35 IU/L 0-32 CBC With Differential/Platelet - 7 12:56 WBC 11.6 x10E3/uL 3.4-10.8 RBC 4.48 x10E6/uL 3.77-5.28 Hemoglobin 13.9 g/dL 11.1-15.9 Hematocrit 41.1 % 34.0-46.6 MCV 92 fL 79-97 MCH 31.0 pg 26.6-33.0 MCHC 33.8 g/dL 31.5-35.7 RDW 14.5 % 12.3-15.4 Platelets 441 x10E3/uL 150-379 Neutrophils 73 % Lymphs 17 % Monocytes 6 % Eos 3 % Basos 1 % Neutrophils (Absolute) 8.4 x10E3/uL 1.4- 7.0 Lymphs (Absolute) 2.0 x10E3/uL 0.7-3.1 Monocytes(Absolute) 0.7 x10E3/uL 0.1-0.9 Eos (Absolute) 0.4 x10E3/uL 0.0-0.4 Baso (Absolute) 0.1 x10E3/uL 0.0-0.2 Immature Granulocytes 0 % Immature Grans (Abs) 0.0 x10E3/uL 0.0-0. 1 Comp. Metabolic Panel (14) - 12/11/16 12 :56 Glucose, Serum 110 mg/dL 65-99 BUN 5 mg/dL 6-24 Creatinine, Serum 0.78 mg/dL 0.57-1.00 eGFR If NonAfricn Am 95 mL/min/1.73 >59 eGFR If Africn Am 109 mL/min/1.73 >5 9 BUN/Creatinine Ratio 6 9-23 Sodium, Serum 141 mmol/L 134-144 Potassium, Serum 4.1 mmol/L 3.5-5.2 Chloride, Serum 97 mmol/L 96-106 Carbon Dioxide, Total 23 mmol/L 18-29 Calcium, Serum 9.7 mg/dL 8.7-10.2 Protein, Total, Serum 7.7 g/dL 6.0-8.5 Albumin, Serum 4.4 g/dL 3.5-5.5 Globulin, Total 3.3 g/dL 1.5-4.5 A/G Ratio 1.3 1.2-2.2 Bilirubin, Total 0.6 mg/dL 0.0-1.2 Alkaline Phosphatase, S 82 IU/L 39-117 AST (SGOT) 35 IU/L 0-40 ALT (SGPT) 39 IU/L 0-32 Lipid Panel - 12/11/16 12:56 Cholesterol, Total 302 mg/dL 100-199 Triglycerides 195 mg/dL 0-149 HDL Cholesterol 36 mg/dL >39 VLDL Cholesterol James 39 mg/dL 5-40 LDL Cholesterol Calc 227 mg/dL 0-99 TSH - 12/11/16 12:56 TSH 0.948 uIU/mL 0.450-4.500 Hemoglobin A1c - 12/17/16 15:00 Hemoglobin A1c 6.5 % 4.8-5.6 Comp. Metabolic Panel (14) - 01/09/17 12 :02 Glucose, Serum 100 mg/dL 65-99 BUN 11 mg/dL 6-24 Creatinine, Serum 0.77 mg/dL 0.57-1.00 eGFR If NonAfricn Am 96 mL/min/1.73 >59 eGFR If Africn Am 111 mL/min/1.73 >5 9 BUN/Creatinine Ratio 14 9-23 Sodium, Serum 139 mmol/L 134-144 Potassium, Serum 4.2 mmol/L 3.5-5.2 Chloride, Serum 98 mmol/L 96-106 Carbon Dioxide, Total 25 mmol/L 18-29 Calcium, Serum 9.7 mg/dL 8.7-10.2 Protein, Total, Serum 7.2 g/dL 6.0-8.5 Albumin, Serum 4.5 g/dL 3.5-5.5 Globulin, Total 2.7 g/dL 1.5-4.5 A/G Ratio 1.7 1.2-2.2 Bilirubin, Total 0.4 mg/dL 0.0-1.2 Alkaline Phosphatase, S 66 IU/L 39-117 AST (SGOT) 37 IU/L 0-40 ALT (SGPT) 34 IU/L 0-32 Encounters ACCT No. Visit Date/Time Discharge Status Pt. Type Provider Facility Loc./Unit Complaint [id number] 12/12/2016 08:06:00 Document Registration [id number] 05/08/2016 08:06:00 Document Registration [id number] 12/18/2016 12:08:00 Document Registration [id number] 04/25/2016 10:05:00 Document Registration [id number] 09/02/2014 12:56:00 09/02/2014 23:59: 59 CLS Outpatient CHRISTIANO CARRERA PSYD [id number] 08/23/2014 11:03:00 08/23/2014 23:59: 59 CLS Outpatient SONYAL RICARDO JOAQUIN [id number] 07/18/2014 13:57:00 07/18/2014 23:59: 59 CLS Outpatient BON PORTER DO Max [id number] 06/20/2014 13:39:00 06/20/2014 23:59: 59 CLS Outpatient MADL RICARDO JOAQUIN L [id number] 05/19/2014 10:54:00 05/19/2014 23:59: 59 CLS Outpatient MADL LYNN JOAQUINNYA L [id number] 04/19/2014 13:18:00 04/19/2014 23:59: 59 CLS Outpatient MADL ANDREW JOAQUINA L [id number] 04/05/2014 12:43:00 04/05/2014 23:59: 59 CLS Outpatient CHRITSIANO CARRERA PSYD [id number] 03/09/2014 10:36:00 03/09/2014 23:59: 59 CLS Outpatient MADL ANDREW JOAQUINA L [id number] 02/07/2014 13:08:00 02/07/2014 23:59: 59 CLS Outpatient MADL DOUBLE END PRODUCTION GRINDER, RICARDO L [id number] 02/03/2014 12:38:00 02/03/2014 23:59: 59 CLS Outpatient DEANDRE FRANCOCHRISTIANO [id number] 01/11/2014 17:20:00 01/11/2014 23:59: 59 CLS Outpatient BON PORTER DO [id number] 01/05/2014 13:39:00 01/05/2014 23:59: 59 CLS Outpatient MADL D[employer] PRODUCTION GRINDER, RICARDO L [id number] 12/08/2013 10:37:00 12/08/2013 23:59: 59 CLS Outpatient MADL D[employer] PRODUCTION GRINDER, RICARDO L [id number] 12/02/2013 14:47:00 12/02/2013 23:59: 59 CLS Outpatient ANN MARIEMUSTAPHAHAYLEEAlisa FRANCOCHRISTIANO L [id number] 11/26/2013 10:08:00 11/26/2013 23:59: 59 CLS Outpatient MADL D[employer] PRODUCTION GRINDER, RICARDO L [id number] 11/24/2013 11:20:00 11/24/2013 23:59: 59 CLS Outpatient MADL D[employer]ODUCTION GRINDER, RICARDO L [id number] 11/22/2013 10:08:00 11/22/2013 23:59: 59 CLS Outpatient MADL D[employer]ODUCTION GRINDER, RICARDO L [id number] 11/22/2013 10:08:00 11/22/2013 23:59: 59 CLS Outpatient MADL D[employer]ODUCTION GRINDER, RICARDO L [id number] 11/17/2013 15:27:00 11/17/2013 23:59: 59 CLS Outpatient MADL D[employer]ODUCTION GRINDER, RICARDO L [id number] 11/05/2013 08:48:00 11/05/2013 23:59: 59 CLS Outpatient MADL D[employer]ODUCTION GRINDER, RICARDO L [id number] 10/06/2013 10:59:00 10/06/2013 23:59: 59 CLS Outpatient MADL D[employer]ODUCTION GRINDER, RICARDO L [id number] 09/06/2013 11:01:00 09/06/2013 23:59: 59 CLS Outpatient HILL DOUBLE END PRODUCTION GRINDERRUBEN [id number] 07/06/2013 10:37:00 07/06/2013 23:59: 59 CLS Outpatient HEMA CUTLER MD [id number] 05/24/2013 12:37:00 05/24/2013 23:59: 59 CLS Outpatient CHRISTIANO CARRERA PSYD [id number] 04/28/2013 13:39:00 04/28/2013 23:59: 59 CLS Outpatient MEGAN MENCHACA APRN [id number] 04/05/2013 08:48:00 04/05/2013 23:59: 59 CLS Outpatient RUBEN HILL APRN [id number] 03/15/2013 13:49:00 03/15/2013 23:59: 59 CLS Outpatient CHRISTIANO CARRERA PSYD [id number] 02/12/2013 14:55:00 02/12/2013 23:59: 59 CLS Outpatient HEMA CUTLER MD [id number] 02/01/2013 10:24:00 02/01/2013 23:59: 59 CLS Outpatient RUBEN HILL APRN [id number] 07/27/2012 10:48:00 07/27/2012 23:59: 59 CLS Outpatient CHRISTIANO CARRERA PSYD [id number] 07/16/2012 11:37:00 07/16/2012 23:59: 59 CLS Outpatient BON PORTER DO [id number] 06/30/2012 15:34:00 06/30/2012 23:59: 59 CLS Outpatient GERMAN RUSHING BON Max [id number] 06/16/2012 09:22:00 06/16/2012 23:59: 59 CLS Outpatient [id number] 04/22/2012 09:05:00 04/22/2012 23:59: 59 CLS Outpatient CHRISTIANO CARRERA PSYD [id number] 03/12/2012 13:41:00 03/12/2012 23:59:5 9 CLS Outpatient CHRISTIANO CARRERA PSYD [id number] 12/31/2012 12:35:00 Document Registration [id number] 11/19/2012 00:00:00 Document Registration [id number] 11/10/2012 10:04:00 Document Registration [id number] 10/13/2012 14:49:00 Document Registration [id number] 10/05/2012 00:00:00 Document Registration [id number] 09/09/2012 00:00:00 Document Registration [id number] 09/07/2012 00:00:00 Document Registration [id number] 08/26/2012 13:34:00 Document Registration [id number] 08/20/2012 11:06:00 Document Registration [id number] 01/10/2017 10:09:00 Document Registration
[2019-09-07 16:09] LABS: BASOPHILS # (AUTO) 0.1 10^3/uL (0.0-0.1); BASOPHILS % (AUTO) 1 % (0-10); EOSINOPHILS # (AUTO) 0.3 10^3/uL (0.0-0.3); EOSINOPHILS % (AUTO) 4 % (0-10); HEMATOCRIT 36 % (35-52); HEMOGLOBIN 11.8 G/DL (11.5-16.0); LYMPHOCYTES % (AUTO) 25 % (12-44); MEAN CORPUSCULAR HEMOGLOBIN 30 PG (25-34); MEAN CORPUSCULAR HGB CONC 33 G/DL (32-36); MEAN CORPUSCULAR VOLUME 92 FL (80-99); MEAN PLATELET VOLUME 9.4 FL (7.4-10.4); MONOCYTES # (AUTO) 0.4 X 10^3 (0.0-1.0); MONOCYTES % (AUTO) 5 % (0-12); NEUTROPHILS # (AUTO) 5.4 X 10^3 (1.8-7.8); NEUTROPHILS % (AUTO) 66 % (42-75); PLATELET COUNT 363 10^3/uL (130-400); RED CELL DISTRIBUTION WIDTH 14.1 % (10.0-14.5); WHITE BLOOD COUNT 8.2 10^3/uL (4.3-11.0)
[2019-09-07 16:15] LABS: CLARITY,URINE CLOUDY; COLOR,URINE BROWN; GLUCOSE, URINE (UA) NEGATIVE (NEGATIVE); KETONES,URINE NEGATIVE (NEGATIVE); LEUKOCYTE ESTERASE ,URINE NEGATIVE (NEGATIVE); NITRITE,URINE NEGATIVE (NEGATIVE); PROTEIN,URINE TRACE (NEGATIVE)
[2019-09-07] MEDS ORDERED: TETANUS,DIPTH,PERTUSS P/F (BOOSTRIX) 0.5 ML VIAL IM ONE (16:15)
[2019-09-07 16:23] LABS: PROTHROMBIN TIME PATIENT 13.1 SEC (12.2-14.7)
[2019-09-07 16:28] LABS: BACTERIA,URINE MODERATE /HPF; BILIRUBIN,URINE 1+ (NEGATIVE); SQUAMOUS EPITHELIAL CELL,UR 25-50 /HPF
--- NOTE | 2019-09-07 16:28 | Diagnostic Imaging Report ---
INDICATION: Stepped on foreign object with puncture wound to the foot. Patient complains of swelling and fever. TIME OF EXAM: 4:13 PM. TECHNIQUE: Three views of the right foot were obtained. FINDINGS: The metatarsals appear to be intact. The phalanges are intact. No fractures are seen. No definite radiopaque soft tissue foreign body is seen. The midfoot and hindfoot are unremarkable apart from a large plantar calcaneal spur. IMPRESSION: No acute abnormality is detected. Dictated by: Dictated on workstation # [id number]
--- NOTE | 2019-09-07 16:28 | Diagnostic Imaging Report ---
INDICATION: Fever. TIME OF EXAM: 4:12 PM. COMPARISON: 04/14/2019. FINDINGS: The heart size is normal. The pulmonary vascularity is unremarkable. The lungs are clear. No infiltrate, effusion, or pneumothorax is detected. IMPRESSION: No acute cardiopulmonary process is detected. Dictated by: Dictated on workstation # [id number]
[2019-09-07 16:31] LABS: ALANINE AMINOTRANSFERASE 11 U/L (0-55); ALBUMIN 3.9 GM/DL (3.2-4.5); ALKALINE PHOSPHATASE 66 U/L (40-136); BILIRUBIN,TOTAL 0.4 MG/DL (0.1-1.0); BUN/CREATININE RATIO 9; CALCIUM 8.8 MG/DL (8.5-10.1); CARBON DIOXIDE 24 MMOL/L (21-32); CHLORIDE 106 MMOL/L (98-107); CREATINE KINASE 49 U/L (29-168); GFR ESTIMATED > 60; GLUCOSE 104 MG/DL (70-105); MAGNESIUM 1.8 MG/DL (1.6-2.4); POTASSIUM 3.3 MMOL/L (3.6-5.0); SODIUM 141 MMOL/L (135-145); TOTAL PROTEIN 6.7 GM/DL (6.4-8.2)
[2019-09-07 16:39] LABS: CREATINE KINASE MB 0.3 NG/ML (<6.6)
--- NOTE | 2019-09-07 16:44 | ED General ---
General Chief Complaint: Respiratory Problems Stated Complaint: FOOT PAIN,SWOLLEN,SOA,COUGH Nursing Triage Note: TO COVID WITH COMPLAINTS OF DRY COUGH, SOA, BEING TIRED, CHILLS, AND WEAKNESS X1 WEEK. ALSO STATES YESTERDAY SHE STEPPED ON A FURNITURE TACK AND NOW HER RIGHT FOOT IS SWOLLEN AND RED. Nursing Sepsis Screen: No Definite Risk Source of Information: Patient History of Present Illness Date Seen by Provider: Sep 07, 2019 Time Seen by Provider: 15:30 Initial Comments PT ARRIVES VIA POV FROM HOME C/O BEING SICK FOR A WEEK WITH NON-PRODUCTIVE COUGH, SHORTNESS OF BREATH, MUCH FATIGUE AND GENERALIZED WEAKNESS PT UNAWARE OF FEVER--TEMP IS 99.3 ON ARRIVAL HERE, BUT HAS HAD SOME CHILLS NO CHEST PAIN OR PAIN WITH BREATHING PT ALSO C/O RIGHT FOOT PAIN, SWELLING AND REDNESS, AFTER STEPPING ON A CARPET TACK LAST NIGHT PT IS DIABETIC TOOK IBUPROFEN AT NOON WITHOUT RELIEF. 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 PT DENIES TRAVEL AND ONLY LEAVING HOUSE TO GO TO [facility] PCP: [facility] [place] Allergies and Home Medications Allergies Coded Allergies: methocarbamol (Unverified Allergy, Unknown, 10/13/15) fentanyl (Verified Adverse Reaction, Unknown, 11/19/13) Home Medications Albuterol/Ipratropium 4 Gm Aero, 1 PUFF IH QID PRN for SHORTNESS OF BREATH, (Reported) Amoxicillin/Potassium Clav 1 Each Tablet, 1 EACH PO BID Prescribed by: HECTOR MONSIVAIS on 11/10/18 1617 Brexpiprazole 2 Mg Tablet, 2 MG PO HS, (Reported) Buspirone HCl 5 Mg Tablet, 5 MG PO BID, (Reported) Levothyroxine Sodium 150 Mcg Tablet, 150 MCG PO DAILY, (Reported) Lisinopril 2.5 Mg Tablet, 2.5 MG PO DAILY, (Reported) Lovastatin 20 Mg Tablet, 20 MG PO DAILY, (Reported) Metformin HCl 500 Mg Tab.er.24h, 500 MG PO BID WITH MEALS, (Reported) Nabumetone 500 Mg Tablet, 500 MG PO BID WITH MEALS, (Reported) Permethrin 60 Gm Cream..g., 60 GM TP UD REPEAT TREATMENT IN 1 WEEK Prescribed by: VIDAL GALEANA on 09/07/191644 Sulfamethoxazole/Trimethoprim 1 Each Tablet, 1 EACH PO BID Prescribed by: VIDAL GALEANA on 09/07/191644 Tizanidine HCl 4 Mg Tablet, 8 TAB PO TID, (Reported) TAKES 2 (4MG) TABLETS Trazodone HCl 150 Mg Tablet, 150-300 MG PO HS, (Reported) Vortioxetine Hydrobromide 20 Mg Tablet, 20 MG PO HS, (Reported) Review of Systems Review of Systems Constitutional: see HPI, chills, fever, malaise EENTM: no symptoms reported Respiratory: see HPI, cough; No phlegm; short of breath; No wheezing Cardiovascular: no symptoms reported; No chest pain, No edema, No palpitations, No syncope Gastrointestinal: no symptoms reported Genitourinary: no symptoms reported : No (S/P HYST) Musculoskeletal: see HPI Skin: see HPI, pruritus, rash, other (ITCHY RASH OVER ENTIRE BODY FOR SEVERAL MONTHS--THOUGHT IT WAS FLEAS OR BED BUGS. ) Psychiatric/Neurological: No Symptoms Reported Hematologic/Lymphatic: No Symptoms Reported Immunological/Allergic: no symptoms reported Past Gfszehq-Ztltre-Ebswcl Hx Patient Social History Alcohol Use: Denies Use Recreational Drug Use: Yes Drug of Choice: POT Smoking Status: Current Everyday Smoker Type Used: Cigarettes 2nd Hand Smoke Exposure: Yes Recent Foreign Travel: No Contact w/Someone Who Travel: No Recent Infectious Disease Expo: No Recent Hopitalizations: No Immunizations Up To Date Tetanus Booster (TDap): Unknown Date of Influenza Vaccine: Feb 08, 2017 Seasonal Allergies Seasonal Allergies: No Past Medical History Surgeries: Yes (RIGHT LUNG BIOPSY) Gallbladder, Hysterectomy, Oophorectomy, Orthopedic, Tracheostomy Respiratory: Yes (surgical bx for pneumonia/on ventilator WITH TRACH 1996, WEARS OXYGEN AT 2 ) Asthma, Pneumonia, Chronic Bronchitis, Sleep Apnea, COPD Currently Using CPAP: No Currently Using BIPAP: No Cardiac: Yes High Cholesterol, Hypertension Neurological: Yes (lumbar neural foraminal stenosis) Headaches /Migraines : No 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 No Pertinent Family Hx Physical Exam Vital Signs Vital Signs - First Documented 09/07/19 15:12 Temp 37.2 Pulse 83 Resp 18 B/P (MAP) 121/59 (79) Pulse Ox 97 O2 Delivery Room Air Capillary Refill : Less Than 3 Seconds Height, Weight, BMI Height: 5'9.00" Weight: 247lbs. 0.0oz. [id number]; 34.00 BMI Method:Actual Focused Exam Lactate Level 09/07/19 16:20: Lactic Acid Level Laboratory Tests Test 09/07/19 16:20 Progress/Results/Core Measures Suspected Sepsis Recent Fever Within 48 Hours: Yes Infection Criteria Present: Suspected New Infection New/Unexplained Altered Menta: No Sepsis Screen: No Definite Risk SIRS Temperature: Pulse: 83 Respiratory Rate: 18 Laboratory Tests 09/07/19 15:56: White Blood Count 8.2 Blood Pressure 121 /59 Mean: 79 09/07/19 16:20: Laboratory Tests 09/07/19 15:56: Creatinine 0.70, INR Comment 1.0, Platelet Count 363, Total Bilirubin 0.4 Results/Orders Lab Results Laboratory Tests Test 09/07/19 15:56 09/07/19 16:20 09/07/19 16:34 Range/Units White Blood Count 8.2 4.3-11.0 10^3/uL Red Blood Count 3.92 L 4.35-5.85 10^6/uL Hemoglobin 11.8 11.5-16.0 G/DL Hematocrit 36 35-52 % Mean Corpuscular Volume 92 80-99 FL Mean Corpuscular Hemoglobin 30 25-34 PG Mean Corpuscular Hemoglobin Concent 33 32-36 G/DL Red Cell Distribution Width 14.1 10.0-14.5 % Platelet Count 363 130-400 10^3/uL Mean Platelet Volume 9.4 7.4-10.4 FL Neutrophils (%) (Auto) 66 42-75 % Lymphocytes (%) (Auto) 25 12-44 % Monocytes (%) (Auto) 5 0-12 % Eosinophils (%) (Auto) 4 0-10 % Basophils (%) (Auto) 1 0-10 % Neutrophils # (Auto) 5.4 1.8-7.8 X 10^3 Lymphocytes # (Auto) 2.0 1.0-4.0 X 10^3 Monocytes # (Auto) 0.4 0.0-1.0 X 10^3 Eosinophils # (Auto) 0.3 0.0-0.3 10^3/uL Basophils # (Auto) 0.1 0.0-0.1 10^3/uL Erythrocyte Sedimentation Rate 41 H 0-20 MM/HR Prothrombin Time 13.1 12.2-14.7 SEC INR Comment 1.0 0.8-1.4 Activated Partial Thromboplast Time 29 24-35 SEC D-Dimer 0.34 0.00-0.49 UG/ML Urine Color BROWN H Urine Clarity CLOUDY Urine pH 6.0 5-9 Urine Specific [place] >=1.030 1.016-1.022 Urine Protein TRACE H NEGATIVE Urine Glucose (UA) NEGATIVE NEGATIVE Urine Ketones NEGATIVE NEGATIVE Urine Nitrite NEGATIVE NEGATIVE Urine Bilirubin 1+ H NEGATIVE Urine Urobilinogen 1.0 < = 1.0 MG/DL Urine Leukocyte Esterase NEGATIVE NEGATIVE Urine RBC (Auto) NEGATIVE NEGATIVE Urine RBC NONE /HPF Urine WBC 2-5 /HPF Urine Squamous Epithelial Cells 25-50 H /HPF Urine Crystals NONE /LPF Urine Bacteria MODERATE H /HPF Urine Casts NONE /LPF Urine Mucus NEGATIVE /LPF Urine Culture Indicated YES Sodium Level 141 135-145 MMOL/L Potassium Level 3.3 L 3.6-5.0 MMOL/L Chloride Level 106 98-107 MMOL/L Carbon Dioxide Level 24 21-32 MMOL/L Anion Gap 11 5-14 MMOL/L Blood Urea Nitrogen 6 L 7-18 MG/DL Creatinine 0.70 0.60-1.30 MG/DL Estimat Glomerular Filtration Rate > 60 BUN/Creatinine Ratio 9 Glucose Level 104 70-105 MG/DL Calcium Level 8.8 8.5-10.1 MG/DL Corrected Calcium 8.9 8.5-10.1 MG/DL Magnesium Level 1.8 1.6-2.4 MG/DL Total Bilirubin 0.4 0.1-1.0 MG/DL Aspartate Amino Transf (AST/SGOT) 15 5-34 U/L Alanine Aminotransferase (ALT/SGPT) 11 0-55 U/L Alkaline Phosphatase 66 40-136 U/L Lactate Dehydrogenase 198 125-220 U/L Total Creatine Kinase 49 29-168 U/L Creatine Kinase MB 0.3 <6.6 NG/ML Myoglobin 19.1 10.0-92.0 NG/ML Troponin I < 0.028 <0.028 NG/ML C-Reactive Protein High Sensitivity 0.65 H 0.00-0.50 MG/DL B-Type Natriuretic Peptide 66.5 <100.0 PG/ML Total Protein 6.7 6.4-8.2 GM/DL Albumin 3.9 3.2-4.5 GM/DL Serum Test, Qualitative NEGATIVE NEGATIVE My Orders Orders - VIDAL GALEANA DO Ed Iv/Invasive Line Start (09/07/19 15:28) Ekg Tracing (09/07/19 15:) Monitor-Rhythm Ecg Trace Only (09/07/19 15:28) Chest 1 View, Ap/Pa Only (09/07/19 15:28) BNP (09/07/19 15:28) Cbc With Automated Diff (09/07/19 15:28) Comprehensive Metabolic Panel (09/07/19 15:28) Creatine Kinase (09/07/19 15:28) Creatine Kinase Mb (09/07/19 15:28) Hcg,Qualitative Serum (09/07/19 15:28) Magnesium (09/07/19 15:28) Protime With Inr (09/07/19 15:28) Partial Thromboplastin Time (09/07/19 15:28) Ua Culture If Indicated (09/07/19 15:28) Myoglobin Serum (09/07/19 15:28) Troponin I (09/07/19 15:28) Foot, Right, 3 View (09/07/19 16:06) Lactic Acid Analyzer (09/07/19 16:06) Procalcitonin (Pct) (09/07/19 16:06) Rapid Strep A Screen (09/07/19 16:06) Blood Culture (09/07/19 16:06) Influenza A And B Antigens (09/07/19 16:06) Fibrin Degradation Products (09/07/19 16:06) Hs C Reactive Protein (09/07/19 16:06) Erythrocyte Sedimentation Rate (09/07/19 16:06) LDH (09/07/19 16:06) Coronavirus Sars-Cov-2 So 2018 (09/07/19 16:06) Adenovirus Detection By Pcr (09/07/19 16:06) Parainfluenza Virus 1,2,3 Pcr (09/07/19 16:06) Dipht,Pertuss(Acell),Tet Adult (Boostrix (09/07/19 16:15) Urine Culture (09/07/19 15:56) Drug Screen Stat (Urine) (09/07/19 16:32) Piperacillin Sodium/Tazobactam (Zosyn Vi (09/07/19 16:45) Vancomycin Injection (Vancomycin Injecti (09/07/19 16:45) Ketorolac Injection (Toradol Injection) (09/07/19 16:45) Vital Signs/I&O 09/07/19 15:12 Temp 37.2 Pulse 83 Resp 18 B/P (MAP) 121/59 (79) Pulse Ox 97 O2 Delivery Room Air Capillary Refill : Less Than 3 Seconds Blood Pressure Mean: 79 Progress Note : Progress Note PT SEEN IN COVID UNIT--PPE WORN AT ALL TIMES PT HAD NO COUGH OR COMPLAINTS OF DYSPNEA AT ANY TIME ONLY COMPLAINT WAS OF RIGHT FOOT PAIN--GIVEN TORADOL FOR THIS GIVEN IV ANTIBIOTICS AND DPT VACCINATION. ECG Initial ECG Impression Date: Sep 07, 2019 Initial ECG Impression Time: 15:50 Initial ECG Rate: 82 Initial ECG Rhythm: Normal Sinus Initial ECG Impression: Nonspecific Changes (PROLONGED QT INTERVAL) Diagnostic Imaging Comments CXR--NO ACUTE PROCESS, PER RADIOLOGIST REPORT AT 1631 XRAYS RIGHT FOOT--NO ACUTE PROCESS, PER RADIOLOGIST REPORT AT 1631 Reviewed: Reviewed by Me Departure Impression Primary Impression: Puncture wound of plantar aspect of right foot with infection Additional Impressions: Upper respiratory infection COVID P.U.I Diabetes Scabies Dtwnmclikj-rhgdbexmx-dgekadb (DPT) vaccination administered at current visit Disposition: 01 HOME, SELF-CARE Condition: Stable Departure-Patient Inst. Referrals: [facility] (PCP/Family) Primary Care Physician Patient Instructions: Bacterial Upper Respiratory Infection, Adult (DC), Cellulitis (Skin Infection), Adult (DC), Coronavirus Disease 2019 (COVID-19) (DC), Cough, Runny Nose, and the Common Cold, Diphtheria and Tetanus Toxoids, and Acellular Pertussis Vaccine, Foot Care for Diabetics, Scabies (DC), Viral Upper Respiratory Infection, Adult (DC), Wound Care (DC) Add. Discharge Instructions: SOAK FOOT IN WARM SOAPY WATER 2-3 TIMES A DAY KEEP FOOT CLEAN AND DRY TYLENOL NEEDED FOR PAIN FOLLOW UP WITH [facility] IN 1-2 DAYS FOR RECHECK OF FOOT WOUND QUARANTINE YOURSELF AND ALL HOUSEHOLD MEMBERS FOR A MINIMUM OF 2 WEEKS OR UNTIL CLEARED BY HEALTH DEPT. RETURN TO ER IF SYMPTOMS WORSEN All discharge instructions reviewed with patient and/or family. Voiced understanding. Scripts Permethrin (Elimite) 60 Gm Cream..g. 60 GM TP UD, #1 TUBE REPEAT TREATMENT IN 1 WEEK Prov: VIDAL GALEANA DO 09/07/19 Sulfamethoxazole/Trimethoprim (Bactrim Ds Tablet) 1 Each Tablet 1 EACH PO BID, #20 TAB Prov: VIDAL GALEANA DO 09/07/19 Work/School Note: Family Work Note Patient Received Medical Care In the Emergency Department On: Sep 07, 2019 Patient Will Be Able to Return to Work/School On: September 21, 2019 VIDAL GALEANA DO Sep 07, 2019 16:44
[2019-09-07] MEDS ORDERED: PERM60CR17 TP (16:45)
[2019-09-07] MEDS ORDERED: SULF1TAB35 PO (16:45)
[2019-09-07] MEDS ORDERED: KETOROLAC 30 MG/ML VIAL IVP ONE (16:45)
[2019-09-07] MEDS ORDERED: PIPERACILLIN SODIUM/TAZOBACTAM 4.5 GM in NS (IVPB) 100 ML IV ONE (16:45)
[2019-09-07] MEDS ORDERED: VANCOMYCIN INJECTION 1,000 MG in NS (IVPB) 250 ML IV ONE (16:45)
[2019-09-07 16:52] LABS: AMPHETAMINE SCREEN, URINE NEGATIVE (NEGATIVE); BARBITURATE SCREEN URINE NEGATIVE (NEGATIVE); BENZODIAZEPINES SCREEN URINE NEGATIVE (NEGATIVE); CANNABINOID SCREEN, URINE POSITIVE (NEGATIVE); COCAINE SCREEN URINE NEGATIVE (NEGATIVE); METHADONE STAT NEGATIVE (NEGATIVE); METHAMPHETAMINE SCREEN URINE S NEGATIVE (NEGATIVE); OPIATE SCREEN URINE NEGATIVE (NEGATIVE); OXYCODONE STAT NEGATIVE (NEGATIVE); PROPOXYPHENE STAT NEGATIVE (NEGATIVE); TRICYCLIC ANTIDEPRESSANTS SCRE NEGATIVE (NEGATIVE)
[2019-09-07 18:35] VITALS: BP 104/67
[2019-09-10 12:55] LABS: PARAINFLU 1 PCR Not Detected (Not Detected); PARAINFLU 2 PCR Not Detected (Not Detected)
== END 2019-09-07 18:35 | disposition home or self-care (01) ==
LOC: EDUNIT# 15:12 → ER 15:13
DX: S91.331A Puncture wound without foreign body, right foot, initial encounter (principal); L08.9 Local infection of the skin and subcutaneous tissue, unspecified; J06.9 Acute upper respiratory infection, unspecified; E11.9 Type 2 diabetes mellitus without complications; B86 Scabies; J44.9 Chronic obstructive pulmonary disease, unspecified; I10 Essential (primary) hypertension; E78.00 Pure hypercholesterolemia, unspecified; G43.909 Migraine, unspecified, not intractable, without status migrainosus; K21.9 Gastro-esophageal reflux disease without esophagitis; E03.9 Hypothyroidism, unspecified; F41.9 Anxiety disorder, unspecified; F32.9 Major depressive disorder, single episode, unspecified; F17.210 Nicotine dependence, cigarettes, uncomplicated; Z20.828 Contact with and (suspected) exposure to other viral communicable diseases; Z23 Encounter for immunization; Z93.0 Tracheostomy status; Z90.710 Acquired absence of both cervix and uterus; Z99.81 Dependence on supplemental oxygen; Z88.8 Allergy status to other drugs, medicaments and biological substances; Z79.84 Long term (current) use of oral hypoglycemic drugs; Z88.5 Allergy status to narcotic agent; W22.8XXA Striking against or struck by other objects, initial encounter
CPT/HCPCS: 36415; 71045; 73630; 80053; 80306; 81000; 82550; 82553; 83605; 83615; 83735; 83874; 83880; 84145; 84484; 84703; 85025; 85379; 85610; 85652; 85730; 86141; 87040; 87077; 87088; 87631; 87635; 87798; 87804; 90715; 93005; 93041

== ENCOUNTER 2020-03-02 00:50 | Emergency (ER) | payer SELFPAY ==
[~2020-03-02] VITALS: Ht 175.2 cm; Wt 106.5 kg
[~2020-03-02 00:50] MED LIST changes: +METF-865 PO; -METF500T19 PO; +PERM60CR17 TP
[2020-03-02] MEDS ORDERED: MELO15TA14 PO (02:11)
--- NOTE | 2020-03-02 02:11 | ED Lower Extremity ---
General Chief Complaint: Lower Extremity Stated Complaint: YS @ 11:45,FALL,RT ANKLE & KNEE PAIN Nursing Triage Note: HAD A SEIZURE AROUND 2344 AND BLACKED OUT TWISTED HER RIGHT ANKLE AND KNEE STATES SHE HEARD IT SNAP ON HER WAY DOWN. Nursing Sepsis Screen: No Definite Risk Source: patient History of Present Illness Date Seen by Provider: Mar 02, 2020 Time Seen by Provider: 01:17 Initial Comments PT ARRIVES VIA POV FROM HOME STATES AROUND 2344, SHE HAD A SEIZURE AND TWISTED HER RIGHT KNEE AND ANKLE SHE WENT DOWN PT HAS LONGSTANDING SEIZURE DISORDER, HAS BEEN OUT OF HER MEDICATION "FOR A COUPLE OF MONTHS" --TAKES KEPPRA--PER MED RECONCILIATION, PT FILLED A 90 DAY SUPPLY ON 05/25/19 AND NONE SINCE. PT HAS NOT SEEN HER NEUROLOGIST IN A LONG TIME PT CAN GIVE DETAILS OF THE INCIDENT--STATES " I WAS GOING DOWN, MY KNEE TWISTED AND IT "SNAPPED"--I HEARD IT--AND I TWISTED BY ANKLE I WENT DOWN" DID NOT HIT HEAD NO OTHER INJURIES HAS NOT TAKEN ANYTHING FOR PAIN STATES MOST OF HER PAIN IS IN HER RIGHT KNEE HAS HAD MULTIPLE ANKLE SPRAINS, NO ANKLE FRACTURES OR SURGERIES HAS SPRAINED HER KNEE BEFORE BUT NEVER HAD SURGERY. NO FEVER OR RECENT ILLNESS PCP: [facility] NEUROLOGIST: DR. MIRAMONTES--SEES HIM AT [facility] Allergies and Home Medications Allergies Coded Allergies: methocarbamol (Unverified Allergy, Unknown, 03/02/20) fentanyl (Verified Adverse Reaction, Unknown, 03/02/20) Home Medications Albuterol/Ipratropium 4 Gm Aero, 1 PUFF IH QID PRN for SHORTNESS OF BREATH, (Reported) Amoxicillin/Potassium Clav 1 Each Tablet, 1 EACH PO BID Prescribed by: HECTOR MONSIVAIS on 11/10/18 1617 Brexpiprazole 2 Mg Tablet, 2 MG PO HS, (Reported) Buspirone HCl 5 Mg Tablet, 5 MG PO BID, (Reported) Levothyroxine Sodium 150 Mcg Tablet, 150 MCG PO DAILY, (Reported) Lisinopril 2.5 Mg Tablet, 2.5 MG PO DAILY, (Reported) Lovastatin 20 Mg Tablet, 20 MG PO DAILY, (Reported) Meloxicam 15 Mg Tablet, 15 MG PO DAILY Prescribed by: VIDAL GALEANA on 03/02/20 0211 Metformin HCl 500 Mg Tab.er.24h, 500 MG PO BID WITH MEALS, (Reported) Nabumetone 500 Mg Tablet, 500 MG PO BID WITH MEALS, (Reported) Permethrin 60 Gm Cream..g., 60 GM TP UD REPEAT TREATMENT IN 1 WEEK Prescribed by: VIDAL GALEANA on 09/07/191644 Sulfamethoxazole/Trimethoprim 1 Each Tablet, 1 EACH PO BID Prescribed by: VIDAL GALEANA on 09/07/191644 Tizanidine HCl 4 Mg Tablet, 8 TAB PO TID, (Reported) TAKES 2 (4MG) TABLETS Trazodone HCl 150 Mg Tablet, 150-300 MG PO HS, (Reported) Vortioxetine Hydrobromide 20 Mg Tablet, 20 MG PO HS, (Reported) Patient Home Medication List Home Medication List Reviewed: Yes Review of Systems Constitutional: no symptoms reported Respiratory: no symptoms reported Cardiovascular: no symptoms reported Gastrointestinal: no symptoms reported Genitourinary: no symptoms reported Musculoskeletal: see HPI; No back pain, No neck pain Skin: no symptoms reported Psychiatric/Neurological: See HPI; Denies Headache, Denies Numbness, Denies Paresthesia, Denies Tingling, Denies Weakness Past [id number]-[id number]-Wxojdx Hx Past Med/Social Hx: Reviewed and Corrections made Patient Social History Alcohol Use: Occasionally Uses Recreational Drug Use: Yes (THC) Drug of Choice: THC Smoking Status: Current Everyday Smoker Type Used: Cigarettes 2nd Hand Smoke Exposure: Yes Recent Foreign Travel: No Contact w/Someone Who Travel: No Recent Infectious Disease Expo: No Recent Hopitalizations: No Physical Abuse: No Sexual Abuse: No Mistreated: No Fear: No Immunizations Up To Date Tetanus Booster (TDap): Unknown Date of Influenza Vaccine: Feb 08, 2017 Seasonal Allergies Seasonal Allergies: No Past Medical History Surgeries: Yes (SEE BELOW) Gallbladder, Hysterectomy, Oophorectomy, Orthopedic, Tracheostomy Respiratory: Yes (R LUNG BX;BILAT CHEST TUBES-PNEUMONIA W/VENT W/ TRACH 1995;O2 AT 2L/NC ) Asthma, Pneumonia, Chronic Bronchitis, Sleep Apnea, COPD Currently Using CPAP: No Currently Using BIPAP: No Cardiac: Yes High Cholesterol, Hypertension Neurological: Yes (lumbar neural foraminal stenosis) Headaches /Migraines, Seizure Disorder 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 No Pertinent Family Hx PSH: -RIGHT ARM FX/ORIF--RODS/SCREWS -BILATERAL CHEST TUBES AND TRACHEOSTOMY FOR PNEUMONIA -RIGHT LUNG BIOPSY -DENTAL SURGERY -SPINAL CORD STIMULATOR 2015 -HYSTERECTOMY/LEFT SALPINGO-OOPHORECTOMY -CHOLECYSTECTOMY -COLONOSCOPY 09/2015-NORMAL Physical Exam Vital Signs Vital Signs - First Documented 03/02/20 01:00 Temp 35.5 Pulse 69 Resp 18 B/P (MAP) 104/92 (96) Pulse Ox 94 Capillary Refill : Less Than 3 Seconds Height, Weight, BMI Height: 5'9.00" Weight: 247lbs. 0.0oz. 112.188500co; 34.00 BMI Method:Actual General Appearance: WD/WN, no apparent distress, obese, other (MALODOROUS) Neck: normal inspection Cardiovascular: normal peripheral pulses, regular rate, rhythm Respiratory: chest non-tender, normal breath sounds Gastrointestinal: non tender Back: no vertebral tenderness Hips: bilateral hip non-tender Legs: left leg normal inspection; right leg other (TENDERNESS TO RIGHT KNEE, TIB-FIB AND ANKLE. 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, no motor/sensory deficits, alert, normal mood/affect, oriented x 3 Skin: normal color, warm/dry; No ecchymosis Progress/Results/Core Measures Results/Orders My Orders Orders - BOLIVAR GALEANAA K DO Tibia/Fibula, Right, 2 Views (03/02/20 01:22) Knee, Right, 3 Views (03/02/20 01:22) Ankle, Right, 3 Views (03/02/20 01:22) Aakash Bandage (03/02/20 02:04) Knee Immobilizer (03/02/20 02:04) Rx-Hydrocodone/Apap 5-325 Mg (Rx-Vicodin (03/02/20 02:15) Vital Signs/I&O 03/02/20 03/02/20 01:00 02:23 Temp 35.5 Pulse 69 56 Resp 18 20 B/P (MAP) 104/92 (96) 90/58 Pulse Ox 94 95 Blood Pressure Mean: 96 Progress Progress Note : Progress Note UNEVENTFUL ER STAY PT STATES HER BLOOD PRESSURE IS ALWAYS VERY LOW AFTER SHE HAS A SEIZURE Diagnostic Imaging Comments XRAYS--ALL PENDING RADIOLOGIST REVIEW RIGHT KNEE--NO ACUTE PROCESS RIGHT TIB-FIB--NO ACUTE PROCESS RIGHT ANKLE--NO ACUTE PROCESS Reviewed: Reviewed by Me Departure Impression Primary Impression: Right knee sprain Additional Impression: Right ankle sprain Disposition: HOME, SELF-CARE Condition: Stable Departure-Patient Inst. Referrals: [facility] [place] (PCP/Family) Primary Care Physician EVERETTE BOURNE MD Patient Instructions: Ankle Sprain (DC), How to Use an Elastic Bandage, Knee Immobilizer (DC), Knee Sprain (DC) Add. Discharge Instructions: AAKASH WRAP TO KNEE AND ANKLE KNEE IMMOBILIZER TO KNEE ICE TO SORE AREAS AT 20 MINUTE INTERVALS ELEVATE LEG MUCH POSSIBLE FOLLOW UP WITH DR. BOURNE, ORTHOPEDIC SURGEON, THIS WEEK FOR FURTHER CARE FOLLOW UP WITH YOUR NEUROLOGIST FOR REFILLS ON YOUR SEIZURE MEDICATION--CALL IN THE MORNING TO DO THIS All discharge instructions reviewed with patient and/or family. Voiced understanding. Scripts Meloxicam (Mobic) 15 Mg Tablet 15 MG PO DAILY, #10 TAB Prov: VIDAL GALEANA DO 03/02/20 VIDAL GALEANA DO Mar 02, 2020 02:11
[2020-03-02] MEDS ORDERED: RX-HYDROCODONE/APAP 5/325 MG #4 TAB PK PO PRN (02:15)
[2020-03-02 02:23] VITALS: BP 90/58
--- NOTE | 2020-03-02 07:27 | Diagnostic Imaging Report ---
INDICATION: Pain following fall. FINDINGS: 3 view right knee show no fracture, dislocation or acute appearing articular incongruity. IMPRESSION: No acute appearing abnormality. Dictated by: Dictated on workstation # [id number]
--- NOTE | 2020-03-02 07:28 | Diagnostic Imaging Report ---
INDICATION: Pain following fall FINDINGS: No fracture, dislocation or acute appearing articular incongruity. IMPRESSION: Negative Dictated by: Dictated on workstation # [id number]
--- NOTE | 2020-03-02 07:29 | Diagnostic Imaging Report ---
INDICATION: Pain following fall FINDINGS: Two-view right tibia-fibula showed no fracture or dislocation. IMPRESSION: No acute appearing abnormality. Dictated by: Dictated on workstation # [id number]
== END 2020-03-02 02:23 | disposition home or self-care (01) ==
LOC: EDUNIT# 00:50 → ER 00:56
DX: S93.491A Sprain of other ligament of right ankle, initial encounter (principal); S83.8X1A Sprain of other specified parts of right knee, initial encounter; E66.9 Obesity, unspecified; J44.9 Chronic obstructive pulmonary disease, unspecified; I10 Essential (primary) hypertension; E78.00 Pure hypercholesterolemia, unspecified; F41.9 Anxiety disorder, unspecified; E03.9 Hypothyroidism, unspecified; E11.9 Type 2 diabetes mellitus without complications; F32.9 Major depressive disorder, single episode, unspecified; Z20.828 Contact with and (suspected) exposure to other viral communicable diseases; Z68.34 Body mass index [BMI] 34.0-34.9, adult; Z88.8 Allergy status to other drugs, medicaments and biological substances; F17.210 Nicotine dependence, cigarettes, uncomplicated; Z79.890 Hormone replacement therapy; Z79.84 Long term (current) use of oral hypoglycemic drugs; X50.1XXA Overexertion from prolonged static or awkward postures, initial encounter
CPT/HCPCS: 73562; 73590; 73610

== ENCOUNTER 2020-08-21 12:52 | Emergency (ER) | payer SELFPAY ==
[~2020-08-21] VITALS: Ht 175.3 cm; Wt 108.9 kg
[~2020-08-21 12:52] MED LIST changes: -MECL-172 PO; +MECL-215 PO; +MELO15TA14 PO; +NABU-88 PO; -NABU500T PO
[2020-08-21] MEDS ORDERED: RT-ALBUTEROL INHALER HFA (VENTOLIN HFA) 18 GM IH ONE (13:10)
--- NOTE | 2020-08-21 13:30 | ED Cough/URI ---
General Chief Complaint: Cough/Cold/Flu Symptoms Stated Complaint: SOB,COVID + Source: patient Exam Limitations: no limitations History of Present Illness Date Seen by Provider: Aug 21, 2020 Time Seen by Provider: 13:08 Initial Comments Here with report of being Covid positive as of testing this morning complaining of shortness of air. Patient states she has COPD and she is out of her inhaler. She has not felt well for the last week and lives with her who has the same symptoms for the same timeframe. She went to [facility] drive-through testing and was tested positive today. Reports fever, cough, sore throat, runny nose, body aches and just not feeling well. States she is also had some diarrhea. She was worried about her oxygen saturations and breathing. Timing/Duration: week, getting worse Severity/Quality: moderate, dry cough Prior Episodes/Possible Cause: occasional episodes Modifying Factors: Improves With Albuterol Inhaler; Worse With Coughing, Worse With Rest Associated Symptoms: cough, fever/chills, muscle aches, nasal congestion, nasal drainage, shortness of breath, sore throat Allergies and Home Medications Allergies Coded Allergies: methocarbamol (Unverified Allergy, Unknown, 03/02/20) fentanyl (Verified Adverse Reaction, Unknown, 03/02/20) Home Medications Albuterol/Ipratropium 4 Gm Aero, 1 PUFF IH QID PRN for SHORTNESS OF BREATH, (Reported) Amoxicillin/Potassium Clav 1 Each Tablet, 1 EACH PO BID Prescribed by: HECTOR MONSIVAIS on 11/10/18 1617 Brexpiprazole 2 Mg Tablet, 2 MG PO HS, (Reported) Buspirone HCl 5 Mg Tablet, 5 MG PO BID, (Reported) Levothyroxine Sodium 150 Mcg Tablet, 150 MCG PO DAILY, (Reported) Lisinopril 2.5 Mg Tablet, 2.5 MG PO DAILY, (Reported) Lovastatin 20 Mg Tablet, 20 MG PO DAILY, (Reported) Meloxicam 15 Mg Tablet, 15 MG PO DAILY Prescribed by: VIDAL GALEANA on 03/02/20 0211 Metformin HCl 500 Mg Tab.er.24h, 500 MG PO BID WITH MEALS, (Reported) Nabumetone 500 Mg Tablet, 500 MG PO BID WITH MEALS, (Reported) Permethrin 60 Gm Cream..g., 60 GM TP UD REPEAT TREATMENT IN 1 WEEK Prescribed by: VIDAL GALEANA on 09/07/191644 Sulfamethoxazole/Trimethoprim 1 Each Tablet, 1 EACH PO BID Prescribed by: VIDAL GALEANA on 09/07/191644 Tizanidine HCl 4 Mg Tablet, 8 TAB PO TID, (Reported) TAKES 2 (4MG) TABLETS Trazodone HCl 150 Mg Tablet, 150-300 MG PO HS, (Reported) Vortioxetine Hydrobromide 20 Mg Tablet, 20 MG PO HS, (Reported) Patient Home Medication List Home Medication List Reviewed: Yes Review of Systems Review of Systems Constitutional: see HPI, chills, fever EENTM: see HPI Respiratory: see HPI Cardiovascular: No chest pain, No edema Gastrointestinal: No abdominal pain; diarrhea Genitourinary: no symptoms reported Musculoskeletal: see HPI, muscle pain; No muscle weakness Skin: no symptoms reported Psychiatric/Neurological: No Symptoms Reported Past Ysqjvhf-Ryfkvz-Eobiox Hx Past Med/Social Hx: Reviewed Nursing Past Med/Soc Hx Patient Social History Alcohol Use: Denies Use Drug of Choice: THC Type Used: Cigarettes 2nd Hand Smoke Exposure: Yes Recent Hopitalizations: No Immunizations Up To Date Tetanus Booster (TDap): Unknown Date of Influenza Vaccine: Feb 08, 2017 Seasonal Allergies Seasonal Allergies: No Past Medical History Surgeries: Yes (SEE BELOW) Gallbladder, Hysterectomy, Oophorectomy, Orthopedic, Tracheostomy Respiratory: Yes (R LUNG BX;BILAT CHEST TUBES-PNEUMONIA W/VENT W/ TRACH 1995;O2 AT 2L/NC ) Asthma, Pneumonia, Chronic Bronchitis, Sleep Apnea, COPD Currently Using CPAP: No Currently Using BIPAP: No Cardiac: Yes High Cholesterol, Hypertension Neurological: Yes (lumbar neural foraminal stenosis) Headaches /Migraines, Seizure Disorder 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 No Pertinent Family Hx PSH: -RIGHT ARM FX/ORIF--RODS/SCREWS -BILATERAL CHEST TUBES AND TRACHEOSTOMY FOR PNEUMONIA -RIGHT LUNG BIOPSY -DENTAL SURGERY -SPINAL CORD STIMULATOR 2015 -HYSTERECTOMY/LEFT SALPINGO-OOPHORECTOMY -CHOLECYSTECTOMY -COLONOSCOPY 09/2015-NORMAL Physical Exam Vital Signs - First Documented 08/21/20 13:04 O2 Delivery Room Air Capillary Refill : Height: 5'9.00" Weight: 247lbs. 0.0oz. 112.507195ob; 34.00 BMI Method:Actual General Appearance: WD/WN, no apparent distress HEENT: PERRL/EOMI, pharyngeal erythema Neck: full range of motion, supple Respiratory: lungs clear, normal breath sounds Cardiovascular: regular rate, rhythm, no murmur Gastrointestinal: non tender, soft Neurologic/Psychiatric: alert, oriented x 3 Skin: normal color, warm/dry Progress/Results/Core Measures Suspected Sepsis SIRS Temperature: Pulse: Respiratory Rate: Blood Pressure / Mean: Results/Orders My Orders Orders - JEREMIAS HERNANDEZ MD Albuterol Inhaler (Ventolin Hfa) (08/21/20 13:10) Vital Signs/I&O 08/21/20 13:04 O2 Delivery Room Air Capillary Refill : Progress Note : Progress Note Seen and evaluated. Initial O2 sat 96 to 100% on room air. Lungs are rather clear with few trace wheezes. Albuterol MDI with spacer given. This did help. Patient does qualify for Bamlanivimab therapy due to BMI 35+. She is also diabetic with COPD. I did discuss the risk and benefits of using this emergency use authorization medication and patient has excepted and would like to be scheduled. Orders written and sent to pharmacy. Fact sheet given to the krysta nt. Discharged home with return precautions. Patient verbalized understanding of instructions and agreement with plan. Departure Impression Primary Impression: COVID-19 virus infection Disposition: HOME, SELF-CARE Condition: Stable Departure-Patient Inst. Decision time for Depature: 13:30 Referrals: [facility] (PCP/Family) Primary Care Physician Add. Discharge Instructions: All discharge instructions reviewed with patient and/or family. Voiced understanding. Drink plenty of fluids and get plenty of rest. The health department will call you and direct isolation timeframe. You may take ibuprofen 600 mg every 8 hours as needed for fever or pain. You may take Tylenol/acetaminophen 1000 mg every 8 hours as needed for fever or pain. Monitor your oxygen saturations and return for O2 sats that are persistently at or below 90% on room air after resting. return for worse pain, fever, vomiting, weakness, breathing problems or other concerns as needed. You will be called regarding the infusion therapy for treatment for Covid with likely infusion tomorrow or Friday. They will call the phone number that you gave while in the emergency department. JEREMIAS HERNANDEZ MD Aug 21, 2020 13:30
[2020-08-21] MEDS ORDERED: ONDANSETRON 4 MG (ZOFRAN) ORAL DISSOLVE TAB SL STA (13:35)
[2020-08-21 13:54] VITALS: BP 140/73
[2020-08-21] MEDS ORDERED: RT-ALBUTEROL INHALER HFA (VENTOLIN HFA) 18 GM IH SCH (14:00)
== END 2020-08-21 13:55 | disposition home or self-care (01) ==
LOC: EDUNIT# 12:52 → ER 12:55
DX: U07.1 COVID-19 (principal); I10 Essential (primary) hypertension; J44.9 Chronic obstructive pulmonary disease, unspecified; E78.00 Pure hypercholesterolemia, unspecified; E11.9 Type 2 diabetes mellitus without complications; E03.9 Hypothyroidism, unspecified; F32.9 Major depressive disorder, single episode, unspecified; F41.9 Anxiety disorder, unspecified; E66.9 Obesity, unspecified; Z68.34 Body mass index [BMI] 34.0-34.9, adult; Z77.22 Contact with and (suspected) exposure to environmental tobacco smoke (acute) (chronic); Z88.8 Allergy status to other drugs, medicaments and biological substances; Z79.890 Hormone replacement therapy; Z79.84 Long term (current) use of oral hypoglycemic drugs
CPT/HCPCS: 94640

== ENCOUNTER 2020-08-23 13:21 | Outpatient (CLI) | payer SELFPAY ==
[~2020-08-23] VITALS: Ht 175.3 cm; Wt 109.1 kg
[2020-08-23 13:20] VITALS: BP 140/80
[~2020-08-23 13:21] MED LIST changes: -NABU-88 PO; +NABU500T8 PO
[2020-08-23] MEDS ORDERED: EPINEPHrine INJECTION 1 MG/ML AMP IM PRN (13:30)
[2020-08-23] MEDS ORDERED: BAMLANIVIMAB (NON FORM) 700 MG in NS (IVPB) 100 ML IV ONE (13:30)
[2020-08-23] MEDS ORDERED: diphenhydrAMINE 50 MG/ML INJ (BENADRYL) IV PRN (13:30)
[2020-08-23 14:51] VITALS: BP 116/76
== END 2020-08-23 14:52 | disposition home or self-care (01) ==
LOC: INFUSION 13:21
PROVIDERS: ATTEND Emergency Medicine
DX: Z23 Encounter for immunization (principal); U07.1 COVID-19

== ENCOUNTER 2021-01-28 17:30 | Emergency (ER) | payer SELFPAY ==
[~2021-01-28] VITALS: Ht 175 cm; Wt 112.5 kg
[2021-01-28] MEDS ORDERED: NS IV 1000 ML 1,000 ML ONE (17:47)
[2021-01-28] MEDS ORDERED: NS IV 1000 ML 1,000 ML IV SCH (18:00)
--- NOTE | 2021-01-28 18:02 | ED Lower Extremity ---
General Stated Complaint: FEVER,COUGH,N/V,HEADACHE History of Present Illness Date Seen by Provider: Jan 28, 2021 Time Seen by Provider: 17:40 Initial Comments 45-year-old female presents for erythema to the anterior right lower leg that she noticed this morning. She has had no injury to her right lower extremity she is a type II diabetic managed on Metformin. She denies any trauma, abrasions or lacerations to her right lower leg. She does have a small blister on her right heel. She has been taking ibuprofen every 6-8 hours, she has not taken her temp today. She has not checked her blood sugar today. Patient reports myalgias, fevers, but no cough or congestion. She had Covid infection in spring 2020, she has not received the vaccines. She is interested in getting the vaccine, explained that our pharmacy is gone but she can get it tomorrow at the health dept or [facility]. Her friend has "flu" she is not sure whether it is influenza or COVID. Onset: this morning Pain/Injury Location: right leg (lower leg, anterior tibia) Method of Injury: unknown (MARKUS VARGAS) Allergies and Home Medications Allergies Coded Allergies: methocarbamol (Unverified Allergy, Unknown, 03/02/20) fentanyl (Verified Adverse Reaction, Unknown, 03/02/20) Patient Home Medication List Home Medication List Reviewed: Yes (MARKUS VARGAS) Albuterol/Ipratropium (Combivent Respimat Inhal Hay) 4 Gm Aero, 1 PUFF IH QID PRN for SHORTNESS OF BREATH, (Reported) Entered as Reported by: ISABELLA BARRETO on 04/23/16 1255 Amoxicillin/Potassium Clav (Augmentin 875-125 Tablet) 1 Each Tablet, 1 EACH PO BID Prescribed by: HECTOR MONSIVAIS on 11/10/18 1617 Brexpiprazole (Rexulti) 2 Mg Tablet, 2 MG PO HS, (Reported) Entered as Reported by: JOSE R JAMES on 05/10/17 2105 Buspirone HCl (Buspirone HCl) 5 Mg Tablet, 5 MG PO BID, (Reported) Entered as Reported by: EMBER ROJAS on 07/16/17 0812 Cefdinir (Cefdinir) 300 Mg Capsule, 300 MG PO BID Prescribed by: MARKUS VARGAS on 01/28/211909 Levothyroxine Sodium (Levothyroxine Sodium) 150 Mcg Tablet, 150 MCG PO DAILY, (Reported) Entered as Reported by: SHIRA ALVAREZ on 04/26/16 0726 Lisinopril (Lisinopril) 2.5 Mg Tablet, 2.5 MG PO DAILY, (Reported) Entered as Reported by: JOSE R JAMES on 05/10/172104 Lovastatin (Lovastatin) 20 Mg Tablet, 20 MG PO DAILY, (Reported) Entered as Reported by: EMBER ROJAS on 07/16/17 08 Meloxicam (Mobic) 15 Mg Tablet, 15 MG PO DAILY Prescribed by: VIDAL GALEANA on 03/02/20 021 Metformin HCl (Metformin HCl ER) 500 Mg Tab.er.24h, 500 MG PO BID WITH MEALS, (Reported) Entered as Reported by: JOSE R JAMES on 05/10/172104 Nabumetone (Nabumetone) 500 Mg Tablet, 500 MG PO BID WITH MEALS, (Reported) Entered as Reported by: JOSE R JAMES on 05/10/172104 Nebulizer (Compact Compressor Nebulizer) 1 Each Each, EACH MC UD, (DME) Prescribed by: NANDO MANCILLA on 07/17/17 09 Permethrin (Elimite) 60 Gm Cream..g., 60 GM TP UD Prescribed by: VIDAL GALEANA on 09/07/19 164 Sulfamethoxazole/Trimethoprim (Bactrim Ds Tablet) 1 Each Tablet, 1 EACH PO BID Prescribed by: VIDAL GALEANA on 09/07/19 164 Tizanidine HCl (Tizanidine HCl) 4 Mg Tablet, 8 TAB PO TID, (Reported) Entered as Reported by: JOSE R JAMES on 12/25/15 2247 Trazodone HCl (Trazodone HCl) 150 Mg Tablet, 150-300 MG PO HS, (Reported) Entered as Reported by: EMBER ROJAS on 07/16/17 08 Vortioxetine Hydrobromide (Trintellix) 20 Mg Tablet, 20 MG PO HS, (Reported) Entered as Reported by: JOSE R JAMES on 05/10/172104 Review of Systems Constitutional: see HPI, malaise EENTM: see HPI, no symptoms reported Respiratory: no symptoms reported, see HPI; No cough Cardiovascular: no symptoms reported, see HPI; No chest pain Gastrointestinal: no symptoms reported, see HPI Genitourinary: no symptoms reported, see HPI Musculoskeletal: see HPI, muscle cramps Skin: see HPI, change in color (errythema right lower leg) (MARKUS VARGAS) All Other Systems Reviewed Negative Unless Noted: Yes (MARKUS VARGAS) Past Pqoowkh-Ktoxrw-Zelozr Hx Immunizations Up To Date Tetanus Booster (TDap): Unknown (MARKUS VARGAS) Seasonal Allergies Seasonal Allergies: No (MARKUS VARGAS) Past Medical History Surgeries: Yes (SEE BELOW) Gallbladder, Hysterectomy, Oophorectomy, Orthopedic, Tracheostomy Respiratory: Yes (R LUNG BX;BILAT CHEST TUBES-PNEUMONIA W/VENT W/ TRACH 1995;O2 AT 2L/NC ) Asthma, Pneumonia, Chronic Bronchitis, Sleep Apnea, COPD Currently Using CPAP: No Currently Using BIPAP: No Cardiac: Yes High Cholesterol, Hypertension Neurological: Yes (lumbar neural foraminal stenosis) Headaches /Migraines, Seizure Disorder 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 No Pertinent Family Hx PSH: -RIGHT ARM FX/ORIF--RODS/SCREWS -BILATERAL CHEST TUBES AND TRACHEOSTOMY FOR PNEUMONIA -RIGHT LUNG BIOPSY -DENTAL SURGERY -SPINAL CORD STIMULATOR 2015 -HYSTERECTOMY/LEFT SALPINGO-OOPHORECTOMY -CHOLECYSTECTOMY -COLONOSCOPY 09/2015-NORMAL (MARKUS VARGAS) Physical Exam Vital Signs Vital Signs - First Documented 01/28/21 01/28/21 17:38 19:32 Temp 36.8 Pulse 80 Resp 18 B/P (MAP) 106/66 Pulse Ox 98 O2 Delivery Room Air (KERVINVIDAL K DO) Vital Signs Capillary Refill : (MARKUS VARGAS) Height, Weight, BMI Height: 5'9.00" Weight: 247lbs. 0.0oz. [id number]; 35.00 BMI Method:Actual General Appearance: WD/WN, no apparent distress HEENT: PERRL/EOMI, normal ENT inspection, TMs normal, pharynx normal Neck: non-tender, full range of motion, supple, normal inspection Cardiovascular: normal peripheral pulses, regular rate, rhythm Respiratory: chest non-tender, lungs clear, normal breath sounds Gastrointestinal: normal bowel sounds, non tender, soft Legs: bilateral leg non-tender; left leg normal inspection; bilateral leg normal range of motion, bilateral leg no evidence of injury; right leg abrasions (superficial), right leg soft tissue tenderness, right leg other (errythema, right lower leg, anterior, 8 cm x 14 cm. Warmth, no fluctuance or induration. No drainage. ) (MARKUS VARGAS) Progress/Results/Core Measures Results/Orders Lab Results Laboratory Tests Test 01/28/21 17:55 01/28/21 18:05 Range/Units White Blood Count 13.8 H 4.3-11.0 10^3/uL Red Blood Count 3.88 3.80-5.11 10^6/uL Hemoglobin 11.5 11.5-16.0 g/dL Hematocrit 34 L 35-52 % Mean Corpuscular Volume 88 80-99 fL Mean Corpuscular Hemoglobin 30 25-34 pg Mean Corpuscular Hemoglobin Concent 34 32-36 g/dL Red Cell Distribution Width 15.9 H 10.0-14.5 % Platelet Count 372 130-400 10^3/uL Mean Platelet Volume 9.3 9.0-12.2 fL Immature Granulocyte % (Auto) 0 % Neutrophils (%) (Auto) 84 H 42-75 % Lymphocytes (%) (Auto) 10 L 12-44 % Monocytes (%) (Auto) 6 0-12 % Eosinophils (%) (Auto) 0 0-10 % Basophils (%) (Auto) 1 0-10 % Neutrophils # (Auto) 11.6 H 1.8-7.8 10^3/uL Lymphocytes # (Auto) 1.3 1.0-4.0 10^3/uL Monocytes # (Auto) 0.8 0.0-1.0 10^3/uL Eosinophils # (Auto) 0.0 0.0-0.3 10^3/uL Basophils # (Auto) 0.1 0.0-0.1 10^3/uL Immature Granulocyte # (Auto) 0.1 0.0-0.1 10^3/uL Urine Color YELLOW Urine Clarity CLEAR Urine pH 6.0 5-9 Urine Specific Dent 1.015 L 1.016-1.022 Urine Protein NEGATIVE NEGATIVE Urine Glucose (UA) NEGATIVE NEGATIVE Urine Ketones NEGATIVE NEGATIVE Urine Nitrite NEGATIVE NEGATIVE Urine Bilirubin NEGATIVE NEGATIVE Urine Urobilinogen 1.0 < = 1.0 MG/DL Urine Leukocyte Esterase NEGATIVE NEGATIVE Urine RBC (Auto) NEGATIVE NEGATIVE Urine RBC NONE /HPF Urine WBC 2-5 /HPF Urine Squamous Epithelial Cells 2-5 /HPF Urine Crystals NONE /LPF Urine Bacteria FEW H /HPF Urine Casts NONE /LPF Urine Mucus SMALL H /LPF Urine Culture Indicated YES Sodium Level 137 135-145 MMOL/L Potassium Level 3.5 L 3.6-5.0 MMOL/L Chloride Level 101 98-107 MMOL/L Carbon Dioxide Level 21 21-32 MMOL/L Anion Gap 15 H 5-14 MMOL/L Blood Urea Nitrogen 9 7-18 MG/DL Creatinine 0.80 0.60-1.30 MG/DL Estimat Glomerular Filtration Rate 78 BUN/Creatinine Ratio 11 Glucose Level 101 70-105 MG/DL Calcium Level 9.4 8.5-10.1 MG/DL Corrected Calcium 9.2 8.5-10.1 MG/DL Total Bilirubin 0.7 0.1-1.0 MG/DL Aspartate Amino Transf (AST/SGOT) 12 5-34 U/L Alanine Aminotransferase (ALT/SGPT) 16 0-55 U/L Alkaline Phosphatase 72 40-136 U/L Total Protein 7.9 6.4-8.2 GM/DL Albumin 4.2 3.2-4.5 GM/DL Urine Opiates Screen NEGATIVE NEGATIVE Urine Oxycodone Screen NEGATIVE NEGATIVE Urine Methadone Screen NEGATIVE NEGATIVE Urine Propoxyphene Screen NEGATIVE NEGATIVE Urine Barbiturates Screen NEGATIVE NEGATIVE Ur Tricyclic Antidepressants Screen NEGATIVE NEGATIVE Urine Phencyclidine Screen NEGATIVE NEGATIVE Urine Amphetamines Screen NEGATIVE NEGATIVE Urine Methamphetamines Screen NEGATIVE NEGATIVE Urine Benzodiazepines Screen NEGATIVE NEGATIVE Urine Cocaine Screen NEGATIVE NEGATIVE Urine Cannabinoids Screen POSITIVE H NEGATIVE Influenza Type A (RT-PCR) Not Detected Not Detecte Influenza Type B (RT-PCR) Not Detected Not Detecte SARS-CoV-2 RNA (RT-PCR) Not Detected Not Detecte (VIDAL GALEANA DO) Medications Given in ED Current Medications Medications Dose Ordered Sig/Bridgette Route Start Time Stop Time Status Last Admin Dose Admin Diphtheria/ Tetanus/Acell Pertussis 0.5 ml ONCE ONCE IM 01/28/21 19:15 01/28/21 19:34 DC 01/28/21 19:27 0.5 ML (VIDAL GALEANA DO) Vital Signs/I&O 01/28/21 01/28/21 17:38 19:32 Temp 36.8 Pulse 80 74 Resp 18 18 B/P (MAP) 106/66 Pulse Ox 98 97 O2 Delivery Room Air Room Air (VIDAL GALEANA DO) Progress Progress Note : Time: 17:40 Progress Note Patient seen and evaluated, does not meet sepsis criteria. Symptoms are not compatible with Covid. Will obtain labs, give normal saline 1 L per IV. She is not febrile at this time. 1815 labs are essentially normal, with WBC elevated to 13,400. Patient declines any new problems. 1830 Covid and influenza negative. Will give Rocephin 1 g IV. 1850 discharge instructions and return precautions reviewed with the patient. All questions answered. (MARKUS VARGAS) Departure Impression Primary Impression: Cellulitis of leg without foot, right Disposition: 01 HOME, SELF-CARE Condition: Improved Departure-Patient Inst. Decision time for Depature: 18:50 (MARKUS VARGAS) Referrals: [facility] (PCP/Family) Primary Care Physician Patient Instructions: Cellulitis (Skin Infection), Adult (DC) Add. Discharge Instructions: Take antibiotics as prescribed. Alternate between Tylenol 650 mg with ibuprofen 600 mg every 4 hours for pain or fever. Follow-up with your primary care provider if symptoms are not improving or worsen. Obtain your Covid vaccine from [facility] or the health department. Track your blood sugars. Return to the emergency department for new, urgent healthcare needs. Scripts Cefdinir (Cefdinir) 300 Mg Capsule 300 MG PO BID, #20 CAP 0 Refills Prov: MARKUS VARGAS 01/28/21 ATTENDING PHYSICIAN NOTE: I WAS PHYSICALLY PRESENT ER PHYSICIAN WHEN THIS PATIENT WAS IN ER, BUT WAS NOT INVOLVED IN DECISION MAKING OR ANY CARE OF THIS PATIENT. (KERVINVIDAL Vaca AMY ARNP Jan 28, 2021 18:02 VIDAL GALEANA DO Jan 29, 2021 07:01
[2021-01-28 18:03] LABS: BASOPHILS # (AUTO) 0.1 10^3/uL (0.0-0.1); BASOPHILS % (AUTO) 1 % (0-10); EOSINOPHILS % (AUTO) 0 % (0-10); HEMATOCRIT 34 % (35-52); HEMOGLOBIN 11.5 g/dL (11.5-16.0); LYMPHOCYTES # (AUTO) 1.3 10^3/uL (1.0-4.0); LYMPHOCYTES % (AUTO) 10 % (12-44); MEAN CORPUSCULAR HEMOGLOBIN 30 pg (25-34); MEAN CORPUSCULAR HGB CONC 34 g/dL (32-36); MEAN CORPUSCULAR VOLUME 88 fL (80-99); MEAN PLATELET VOLUME 9.3 fL (9.0-12.2); MONOCYTES # (AUTO) 0.8 10^3/uL (0.0-1.0); MONOCYTES % (AUTO) 6 % (0-12); NEUTROPHILS # (AUTO) 11.6 10^3/uL (1.8-7.8); NEUTROPHILS % (AUTO) 84 % (42-75); PLATELET COUNT 372 10^3/uL (130-400); WHITE BLOOD COUNT 13.8 10^3/uL (4.3-11.0)
[2021-01-28 18:04] LABS: BILIRUBIN,URINE NEGATIVE (NEGATIVE); CLARITY,URINE CLEAR; COLOR,URINE YELLOW; GLUCOSE, URINE (UA) NEGATIVE (NEGATIVE); KETONES,URINE NEGATIVE (NEGATIVE); LEUKOCYTE ESTERASE ,URINE NEGATIVE (NEGATIVE); NITRITE,URINE NEGATIVE (NEGATIVE); PROTEIN,URINE NEGATIVE (NEGATIVE)
[2021-01-28 18:11] LABS: BACTERIA,URINE FEW /HPF
[2021-01-28 18:14] LABS: ALBUMIN 4.2 GM/DL (3.2-4.5); POTASSIUM 3.5 MMOL/L (3.6-5.0)
[2021-01-28 18:15] LABS: CALCIUM 9.4 MG/DL (8.5-10.1)
[2021-01-28 18:17] LABS: TOTAL PROTEIN 7.9 GM/DL (6.4-8.2)
[2021-01-28 18:18] LABS: BILIRUBIN,TOTAL 0.7 MG/DL (0.1-1.0)
[2021-01-28 18:20] LABS: CREATININE SERUM 0.8 MG/DL (0.60-1.30)
[2021-01-28 18:32] LABS: AMPHETAMINE SCREEN, URINE NEGATIVE (NEGATIVE); BARBITURATE SCREEN URINE NEGATIVE (NEGATIVE); BENZODIAZEPINES SCREEN URINE NEGATIVE (NEGATIVE); CANNABINOID SCREEN, URINE POSITIVE (NEGATIVE); COCAINE SCREEN URINE NEGATIVE (NEGATIVE); METHADONE STAT NEGATIVE (NEGATIVE); METHAMPHETAMINE SCREEN URINE S NEGATIVE (NEGATIVE); OPIATE SCREEN URINE NEGATIVE (NEGATIVE); OXYCODONE STAT NEGATIVE (NEGATIVE); PROPOXYPHENE STAT NEGATIVE (NEGATIVE); TRICYCLIC ANTIDEPRESSANTS SCRE NEGATIVE (NEGATIVE)
[2021-01-28] MEDS ORDERED: ceFAZolin INJECTION 1,000 MG ONE (18:58)
[2021-01-28] MEDS ORDERED: WATER (STERILE) FOR INJECTION 10 ML ONE (18:59)
[2021-01-28] MEDS ORDERED: ceFAZolin INJECTION 1,000 MG in WATER (STERILE) FOR INJECTION 10 ML IV ONE (19:00)
[2021-01-28] MEDS ORDERED: CEFD300C3 PO (19:10)
[2021-01-28] MEDS ORDERED: TETANUS,DIPTH,PERTUSS P/F (BOOSTRIX) 0.5 ML VIAL IM ONE ×2 (19:15→19:25)
[2021-01-28 19:32] VITALS: BP 106/66
[2021-01-31] MEDS ORDERED: LISI2.5T PO (13:25)
== END 2021-01-28 19:32 | disposition home or self-care (01) ==
LOC: EDUNIT# 17:30 → ER 17:32
DX: L03.115 Cellulitis of right lower limb (principal); G47.30 Sleep apnea, unspecified; J44.9 Chronic obstructive pulmonary disease, unspecified; I10 Essential (primary) hypertension; E78.00 Pure hypercholesterolemia, unspecified; F41.9 Anxiety disorder, unspecified; F32.9 Major depressive disorder, single episode, unspecified; E66.9 Obesity, unspecified; E03.9 Hypothyroidism, unspecified; E11.9 Type 2 diabetes mellitus without complications; Z86.14 Personal history of Methicillin resistant Staphylococcus aureus infection; Z20.822 Contact with and (suspected) exposure to COVID-19; Z68.35 Body mass index [BMI] 35.0-35.9, adult; Z23 Encounter for immunization; Z79.84 Long term (current) use of oral hypoglycemic drugs; Z79.899 Other long term (current) drug therapy; Z79.890 Hormone replacement therapy
CPT/HCPCS: 36415; 80053; 80306; 81000; 85025; 87088; 87636; 90715

== ENCOUNTER 2021-01-30 16:34 | Inpatient (IN) | payer SELFPAY ==
[~2021-01-30] VITALS: Ht 175.3 cm; Wt 113.3 kg
[~2021-01-30 16:34] MED LIST changes: -DOXY100C2 PO; +DOXY100C5 PO; -LISI2.5T PO; +LISI2.5T13 PO
--- NOTE | 2021-01-30 16:48 | ED Lower Extremity ---
General Stated Complaint: CELLULITIS OF R LEG / WELTS Source: patient, old records History of Present Illness Date Seen by Provider: Jan 30, 2021 Time Seen by Provider: 16:39 Initial Comments PT ARRIVES VIA POV FROM HOME C/O RIGHT LOWER LEG PAIN, SWELLING AND REDNESS SINCE FRIDAY MORNING 01/28/21 PT HAD FEVER OF 101.2 ON FRIDAY NIGHT, NO FEVER SINCE THEN NO KNOWN INJURY, BUT PT HAS MANY SORES TO LOWER LEGS AND A RECENT BLISTER ON RIGHT ACHILLES AREA. 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 PT IS DIABETIC PT WAS SEEN HERE ON FRIDAY NIGHT FOR THIS PROBLEM AND WAS GIVEN DOSE OF IV ANTIBIOTICS ( CEFAZOLIN ) AND GIVEN RX FOR ANTIBIOTICS (CEFDINIR) PT DID NOT FILL RX, STATING THEY WERE TOO EXPENSIVE HAS NOT ATTEMPTED TO FOLLOW UP WITH [facility] FOR THIS PROBLEM PT STATES PAIN AND SWELLING IS WORSE, BUT THINKS REDNESS IS SLIGHTLY BETTER NO PARESTHESIAS OR MOTOR DEFICITS PCP: [facility] Allergies and Home Medications Allergies Coded Allergies: methocarbamol (Unverified Allergy, Unknown, 03/02/20) fentanyl (Verified Adverse Reaction, Unknown, 03/02/20) Patient Home Medication List Home Medication List Reviewed: Yes Albuterol/Ipratropium (Combivent Respimat Inhal [place]) 4 Gm Aero, 1 PUFF IH QID PRN for SHORTNESS OF BREATH, (Reported) Entered as Reported by: ISABELLA BARRETO on 04/23/16 1255 Amoxicillin/Potassium Clav (Augmentin 875-125 Tablet) 1 Each Tablet, 1 EACH PO BID Prescribed by: HECTOR MONSIVAIS on 11/10/18 1617 Brexpiprazole (Rexulti) 2 Mg Tablet, 2 MG PO HS, (Reported) Entered as Reported by: JOSE R JAMES on 05/10/17 2105 Buspirone HCl (Buspirone HCl) 5 Mg Tablet, 5 MG PO BID, (Reported) Entered as Reported by: EMBER ROJAS on 07/16/17 0812 Cefdinir (Cefdinir) 300 Mg Capsule, 300 MG PO BID Prescribed by: MARKUS VARGAS on 01/28/21 191 Levothyroxine Sodium (Levothyroxine Sodium) 150 Mcg Tablet, 150 MCG PO DAILY, (Reported) Entered as Reported by: SHIRA ALVAREZ on 04/26/16 0726 Lisinopril (Lisinopril) 2.5 Mg Tablet, 2.5 MG PO DAILY, (Reported) Entered as Reported by: JOSE R JAMES on 05/10/172104 Lovastatin (Lovastatin) 20 Mg Tablet, 20 MG PO DAILY, (Reported) Entered as Reported by: EMBER ROJAS on 07/16/17 08 Meloxicam (Mobic) 15 Mg Tablet, 15 MG PO DAILY Prescribed by: VIDAL GALEANA on 03/02/20 0211 Metformin HCl (Metformin HCl ER) 500 Mg Tab.er.24h, 500 MG PO BID WITH MEALS, (Reported) Entered as Reported by: JOSE R JAMES on 05/10/172104 Nabumetone (Nabumetone) 500 Mg Tablet, 500 MG PO BID WITH MEALS, (Reported) Entered as Reported by: JOSE R JAMES on 05/10/172104 Nebulizer (Compact Compressor Nebulizer) 1 Each Each, EACH MC UD, (DME) Prescribed by: NANDO MANCILLA on 07/17/17 09 Permethrin (Elimite) 60 Gm Cream..g., 60 GM TP UD Prescribed by: VIDAL GALEANA on 09/07/19 164 Sulfamethoxazole/Trimethoprim (Bactrim Ds Tablet) 1 Each Tablet, 1 EACH PO BID Prescribed by: VIDAL GALEANA on 09/07/19 164 Tizanidine HCl (Tizanidine HCl) 4 Mg Tablet, 8 TAB PO TID, (Reported) Entered as Reported by: JOSE R JAMES on 12/25/15 2247 Trazodone HCl (Trazodone HCl) 150 Mg Tablet, 150-300 MG PO HS, (Reported) Entered as Reported by: EMBER ROJAS on 07/16/17 08 Vortioxetine Hydrobromide (Trintellix) 20 Mg Tablet, 20 MG PO HS, (Reported) Entered as Reported by: JOSE R JAMES on 05/10/172104 Review of Systems Constitutional: see HPI EENTM: no symptoms reported Respiratory: no symptoms reported Cardiovascular: no symptoms reported Gastrointestinal: no symptoms reported Genitourinary: no symptoms reported Musculoskeletal: see HPI Skin: see HPI Psychiatric/Neurological: No Symptoms Reported Past Tuvhyhr-Ddrlwy-Hipolc Hx Patient Social History Tobacco Use?: Yes Tobacco type used: Cigarettes Substance use?: Yes Substance type: Marijuana Substance frequency: Daily Alcohol Use?: Yes Alcohol Frequency: Several times a month Immunizations Up To Date Tetanus Booster (TDap): Unknown First/Initial COVID19 Vaccinat: NONE Second COVID19 Vaccination Joshua: NONE Seasonal Allergies Seasonal Allergies: No Past Medical History Surgery/Hospitalization HX: COVID-19 INFECTION 08/2020 NO COVID-19 VACCINE OF 01/30/21 Surgeries: Yes (SEE BELOW) Gallbladder, Hysterectomy, Oophorectomy, Orthopedic, Tracheostomy Respiratory: Yes (R LUNG BX;BILAT CHEST TUBES-PNEUMONIA W/VENT W/ TRACH 1995;O2 AT 2L/NC ) Asthma, Pneumonia, Chronic Bronchitis, Sleep Apnea, COPD Currently Using CPAP: No Currently Using BIPAP: No Cardiac: Yes High Cholesterol, Hypertension Neurological: Yes (lumbar neural foraminal stenosis) Headaches /Migraines, Seizure Disorder 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 No Pertinent Family Hx SOCIAL HISTORY: -SMOKES 1 PPD -ETOH--OCCASIONAL USE -DRUGS-DAILY MARIJUANA USE PSH: -RIGHT ARM FX/ORIF--RODS/SCREWS -BILATERAL CHEST TUBES AND TRACHEOSTOMY FOR PNEUMONIA -RIGHT LUNG BIOPSY -DENTAL SURGERY -SPINAL CORD STIMULATOR 2015 -HYSTERECTOMY/LEFT SALPINGO-OOPHORECTOMY -CHOLECYSTECTOMY -COLONOSCOPY 09/2015-NORMAL Physical Exam Vital Signs Vital Signs - First Documented 01/30/21 16:38 Temp 36.4 Pulse 73 Resp 16 B/P (MAP) 124/71 (88) Pulse Ox 97 O2 Delivery Room Air Capillary Refill : Height, Weight, BMI Height: 5'9.00" Weight: 247lbs. 0.0oz. 112.075187tx; 36.00 BMI Method:Actual General Appearance: WD/WN, no apparent distress, other (DIRTY, FEET FILTHY, ARE FINGERNAILS AND TOENAILS, MALODOROUS) HEENT: other (POOR DENTITION) Neck: normal inspection Cardiovascular: regular rate, rhythm, no murmur Respiratory: normal breath sounds, no respiratory distress Gastrointestinal: non tender, soft Hips: bilateral hip normal inspection Legs: left leg normal inspection; right leg other (RIGHT LOWER LEG--FROM KNEE TO ANKLE WITH MODERATE EDEMA, DIFFUSE TENDERNESS, ERYTHEMA TO ANTERIOR ASPECT FROM ANKLE TO PATELLA, AND POSTERIORLY FROM ACHILLES AREA TO MID CALF. VERY FIRM, NO FLUCTUANCE. NO DRAINAGE. NO STREAKS. MOTOR/SENSORY/VASCULAR INTACT. 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 NO PURULENT DRAINAGE. EXTENSIVE SORES/SCABS/SCARS TO LEGS, ARMS, FACE. DORSAL ASPECT OF RIGHT ARM WITH EXTENSIVE ERYTHEMA AND WARMTH FROM HAND TO SHOULDER, SOME DIFFUSE SKIN THICKENING OF THIS AREA, POSSIBLY HAS ECZEMATOUS TYPE APPEARANCE ?? --PT STATES HER ARM ALWAYS LOOKS LIKE THIS) Progress/Results/Core Measures Results/Orders Lab Results Laboratory Tests Test 01/30/21 16:50 01/30/21 16:58 Range/Units White Blood Count 7.4 4.3-11.0 10^3/uL Red Blood Count 3.85 3.80-5.11 10^6/uL Hemoglobin 11.3 L 11.5-16.0 g/dL Hematocrit 34 L 35-52 % Mean Corpuscular Volume 89 80-99 fL Mean Corpuscular Hemoglobin 29 25-34 pg Mean Corpuscular Hemoglobin Concent 33 32-36 g/dL Red Cell Distribution Width 15.9 H 10.0-14.5 % Platelet Count 402 H 130-400 10^3/uL Mean Platelet Volume 9.4 9.0-12.2 fL Immature Granulocyte % (Auto) 0 % Neutrophils (%) (Auto) 60 42-75 % Lymphocytes (%) (Auto) 24 12-44 % Monocytes (%) (Auto) 10 0-12 % Eosinophils (%) (Auto) 4 0-10 % Basophils (%) (Auto) 1 0-10 % Neutrophils # (Auto) 4.5 1.8-7.8 10^3/uL Lymphocytes # (Auto) 1.8 1.0-4.0 10^3/uL Monocytes # (Auto) 0.8 0.0-1.0 10^3/uL Eosinophils # (Auto) 0.3 0.0-0.3 10^3/uL Basophils # (Auto) 0.1 0.0-0.1 10^3/uL Immature Granulocyte # (Auto) 0.0 0.0-0.1 10^3/uL Erythrocyte Sedimentation Rate 76 H 0-20 MM/HR Prothrombin Time 13.6 12.2-14.7 SEC INR Comment 1.0 0.8-1.4 Activated Partial Thromboplast Time 38 H 24-35 SEC D-Dimer 0.65 H 0.00-0.49 UG/ML Sodium Level 139 135-145 MMOL/L Potassium Level 3.7 3.6-5.0 MMOL/L Chloride Level 100 98-107 MMOL/L Carbon Dioxide Level 25 21-32 MMOL/L Anion Gap 14 5-14 MMOL/L Blood Urea Nitrogen 3 L 7-18 MG/DL Creatinine 0.72 0.60-1.30 MG/DL Estimat Glomerular Filtration Rate 88 BUN/Creatinine Ratio 4 Glucose Level 87 70-105 MG/DL Lactic Acid Level 1.30 0.50-2.00 MMOL/L Calcium Level 9.7 8.5-10.1 MG/DL Corrected Calcium 9.6 8.5-10.1 MG/DL Magnesium Level 2.0 1.6-2.4 MG/DL Total Bilirubin 0.4 0.1-1.0 MG/DL Aspartate Amino Transf (AST/SGOT) 21 5-34 U/L Alanine Aminotransferase (ALT/SGPT) 26 0-55 U/L Alkaline Phosphatase 76 40-136 U/L C-Reactive Protein High Sensitivity 8.15 H 0.00-0.50 MG/DL Total Protein 7.8 6.4-8.2 GM/DL Albumin 4.1 3.2-4.5 GM/DL Procalcitonin 0.06 <0.10 NG/ML Serum Test, Qualitative NEGATIVE NEGATIVE Urine Color YELLOW Urine Clarity CLEAR Urine pH 6.5 5-9 Urine Specific [place] <=1.005 1.016-1.022 Urine Protein NEGATIVE NEGATIVE Urine Glucose (UA) NEGATIVE NEGATIVE Urine Ketones NEGATIVE NEGATIVE Urine Nitrite NEGATIVE NEGATIVE Urine Bilirubin NEGATIVE NEGATIVE Urine Urobilinogen 0.2 < = 1.0 MG/DL Urine Leukocyte Esterase NEGATIVE NEGATIVE Urine RBC (Auto) NEGATIVE NEGATIVE Urine RBC NONE /HPF Urine WBC NONE /HPF Urine Squamous Epithelial Cells 2-5 /HPF Urine Crystals NONE /LPF Urine Bacteria NEGATIVE /HPF Urine Casts NONE /LPF Urine Mucus NEGATIVE /LPF Urine Culture Indicated NO Urine Opiates Screen NEGATIVE NEGATIVE Urine Oxycodone Screen NEGATIVE NEGATIVE Urine Methadone Screen NEGATIVE NEGATIVE Urine Propoxyphene Screen NEGATIVE NEGATIVE Urine Barbiturates Screen NEGATIVE NEGATIVE Ur Tricyclic Antidepressants Screen NEGATIVE NEGATIVE Urine Phencyclidine Screen NEGATIVE NEGATIVE Urine Amphetamines Screen NEGATIVE NEGATIVE Urine Methamphetamines Screen NEGATIVE NEGATIVE Urine Benzodiazepines Screen NEGATIVE NEGATIVE Urine Cocaine Screen NEGATIVE NEGATIVE Urine Cannabinoids Screen POSITIVE H NEGATIVE My Orders Orders - VIDAL GALEANA DO Us Venous Lower Ext Rt (01/30/21 16:43) Cbc With Automated Diff (01/30/21 16:43) Comprehensive Metabolic Panel (01/30/21 16:43) Hs C Reactive Protein (01/30/21 16:43) Fibrin Degradation Products (01/30/21 16:43) Drug Screen Stat (Urine) (01/30/21 16:43) Hcg,Qualitative Serum (01/30/21 16:43) Lactic Acid Analyzer (01/30/21 16:43) Magnesium (01/30/21 16:43) Procalcitonin (Pct) (01/30/21 16:43) Protime With Inr (01/30/21 16:43) Partial Thromboplastin Time (01/30/21 16:43) Ua Culture If Indicated (01/30/21 16:43) Blood Culture (01/30/21 16:43) Erythrocyte Sedimentation Rate (01/30/21 16:43) Monitor-Rhythm Ecg Trace Only (01/30/21 16:43) Ed Iv/Invasive Line Start (01/30/21 16:43) Vital Signs Adult Sepsis Patie Q15M (01/30/21 16:43) Piperacillin Sodium/Tazobactam (Zosyn Vi (01/30/21 17:45) Vancomycin Injection (Vancomycin Injecti (01/30/21 17:45) Ketorolac Injection (Toradol Injection) (01/30/21 17:45) Medications Given in ED Vital Signs/I&O 01/30/21 16:38 Temp 36.4 Pulse 73 Resp 16 B/P (MAP) 124/71 (88) Pulse Ox 97 O2 Delivery Room Air Progress Progress Note : Progress Note UNEVENTFUL ER STAY GIVEN IV ANTIBIOTICS AND TORADOL VITALS STABLE NO FEVER NO TACHYCARDIA NO HYPOTENSION NO HYPOXIA PT ADVISES THAT SHE WISHES TO BE A FULL CODE Diagnostic Imaging Comments ULTRASOUND/VENOUS DOPPLER RIGHT LEG--PER RADIOLOGIST REPORT AT 1800 FINDINGS: Continuous venous flow is present. No intraluminal filling defect is identified. There is normal compressibility and response to augmentation. No abnormal perivascular fluid collection is identified. Prominent lymph nodes in right inguinal region measures 3.8 cm long axis. IMPRESSION: No ultrasound evidence of right lower extremity deep venous thrombosis although there are prominent probable reactive lymph nodes in the right inguinal region. Reviewed: Reviewed by [place] Departure Communication (Admissions) 1738--ATTEMPTING TO CONTACT DR. CHRISTOPHER, HOSPITALIST FOR [facility] [place], MESSAGE LEFT ON CELL 1755--SPOKE WITH DR. CHRISTOPHER, ACCEPTS PT FOR ADMIT. WOULD LIKE SURGERY CONSULTED 1757--SPOKE WITH DR. CASE, SURGEON EVAPORATOR HELPER, AND INFORMED HIM OF CONSULT Impression Primary Impression: Cellulitis of right lower extremity without foot Additional Impressions: Non-insulin dependent diabetes mellitus POSSIBLE CELLULTIS OF RIGHT ARM Disposition: ADMITTED INPATIENT Condition: Stable Admissions Decision to Admit Reason: Admit from ER (General) Decision to Admit/Date: Jan 30, 2021 Time/Decision to Admit Time: 17:40 Departure-Patient Inst. Referrals: [facility] (PCP/Family) Primary Care Physician VIDAL GALEANA DO Jan 30, 2021 16:48
[2021-01-30 17:00] LABS: BASOPHILS # (AUTO) 0.1 10^3/uL (0.0-0.1); BASOPHILS % (AUTO) 1 % (0-10); EOSINOPHILS # (AUTO) 0.3 10^3/uL (0.0-0.3); EOSINOPHILS % (AUTO) 4 % (0-10); HEMATOCRIT 34 % (35-52); HEMOGLOBIN 11.3 g/dL (11.5-16.0); LYMPHOCYTES # (AUTO) 1.8 10^3/uL (1.0-4.0); LYMPHOCYTES % (AUTO) 24 % (12-44); MEAN CORPUSCULAR HEMOGLOBIN 29 pg (25-34); MEAN CORPUSCULAR HGB CONC 33 g/dL (32-36); MEAN CORPUSCULAR VOLUME 89 fL (80-99); MEAN PLATELET VOLUME 9.4 fL (9.0-12.2); MONOCYTES # (AUTO) 0.8 10^3/uL (0.0-1.0); MONOCYTES % (AUTO) 10 % (0-12); NEUTROPHILS # (AUTO) 4.5 10^3/uL (1.8-7.8); NEUTROPHILS % (AUTO) 60 % (42-75); PLATELET COUNT 402 10^3/uL (130-400); WHITE BLOOD COUNT 7.4 10^3/uL (4.3-11.0)
[2021-01-30 17:02] LABS: BILIRUBIN,URINE NEGATIVE (NEGATIVE); CLARITY,URINE CLEAR; COLOR,URINE YELLOW; GLUCOSE, URINE (UA) NEGATIVE (NEGATIVE); KETONES,URINE NEGATIVE (NEGATIVE); LEUKOCYTE ESTERASE ,URINE NEGATIVE (NEGATIVE); NITRITE,URINE NEGATIVE (NEGATIVE); PH,URINE 6.5 (5-9); PROTEIN,URINE NEGATIVE (NEGATIVE)
[2021-01-30 17:09] LABS: BACTERIA,URINE NEGATIVE /HPF
[2021-01-30 17:12] LABS: ALBUMIN 4.1 GM/DL (3.2-4.5); POTASSIUM 3.7 MMOL/L (3.6-5.0)
[2021-01-30 17:13] LABS: CALCIUM 9.7 MG/DL (8.5-10.1)
[2021-01-30 17:14] LABS: TOTAL PROTEIN 7.8 GM/DL (6.4-8.2)
[2021-01-30 17:15] LABS: FIBRIN DEGRADATION PRODUCTS 0.65 UG/ML (0.00-0.49); PROTHROMBIN TIME PATIENT 13.6 SEC (12.2-14.7)
[2021-01-30 17:16] LABS: BILIRUBIN,TOTAL 0.4 MG/DL (0.1-1.0)
[2021-01-30 17:18] LABS: CREATININE SERUM 0.72 MG/DL (0.60-1.30)
[2021-01-30 17:19] LABS: AMPHETAMINE SCREEN, URINE NEGATIVE (NEGATIVE); BARBITURATE SCREEN URINE NEGATIVE (NEGATIVE); BENZODIAZEPINES SCREEN URINE NEGATIVE (NEGATIVE); CANNABINOID SCREEN, URINE POSITIVE (NEGATIVE); COCAINE SCREEN URINE NEGATIVE (NEGATIVE); METHADONE STAT NEGATIVE (NEGATIVE); METHAMPHETAMINE SCREEN URINE S NEGATIVE (NEGATIVE); OPIATE SCREEN URINE NEGATIVE (NEGATIVE); OXYCODONE STAT NEGATIVE (NEGATIVE); PROPOXYPHENE STAT NEGATIVE (NEGATIVE); TRICYCLIC ANTIDEPRESSANTS SCRE NEGATIVE (NEGATIVE)
[2021-01-30 17:21] LABS: ERYTHROCYTE SEDIMENTATION RATE 76 MM/HR (0-20)
--- NOTE | 2021-01-30 17:44 | Diagnostic Imaging Report ---
PROCEDURE: US right lower extremity venous. TECHNIQUE: Multiple real-time grayscale images were obtained over the right lower extremity in various projections. Additional spectral analysis and color Doppler duplex images were also obtained. INDICATION: Right lower extremity pain and swelling EXAMINATION: Grayscale and color Doppler evaluation of the deep veins of the right lower extremity were performed with waveform analysis. FINDINGS: Continuous venous flow is present. No intraluminal filling defect is identified. There is normal compressibility and response to augmentation. No abnormal perivascular fluid collection is identified. Prominent lymph nodes in right inguinal region measures 3.8 cm long axis. IMPRESSION: No ultrasound evidence of right lower extremity deep venous thrombosis although there are prominent probable reactive lymph nodes in the right inguinal region. Dictated by: Dictated on workstation # [id number]
[2021-01-30] MEDS ORDERED: KETOROLAC 30 MG/ML VIAL IVP ONE (17:45)
[2021-01-30] MEDS ORDERED: PIPERACILLIN SODIUM/TAZOBACTAM 4.5 GM in NS (IVPB) 100 ML IV ONE (17:45)
[2021-01-30] MEDS ORDERED: VANCOMYCIN INJECTION 1,000 MG in NS (IVPB) 250 ML IV SCH (17:45)
[2021-01-30] MEDS ORDERED: PIPERACILLIN/TAZO 4.5 GM VIAL (ZOSYN) IV ONE (17:53)
[2021-01-30] MEDS ORDERED: VANCOMYCIN INJECTION 2,000 MG in NS IV 500 ML 500 ML IV NR (18:00)
[2021-01-30 20:00] VITALS: BP 120/68
[2021-01-30] MEDS ORDERED: ONDANSETRON 4 MG (ZOFRAN) ORAL DISSOLVE TAB PO PRN (20:30)
[2021-01-30] MEDS ORDERED: DOCUSATE SODIUM 100 MG (COLACE) CAP PO PRN (20:30)
[2021-01-30] MEDS ORDERED: diphenhydrAMINE 25 MG TAB (BENADRYL) PO PRN (20:30)
[2021-01-30] MEDS ORDERED: ONDANSETRON 4 MG/2 ML (SDV) Z0FRAN IVP PRN (20:30)
[2021-01-30] MEDS ORDERED: ACETAMINOPHEN 500 MG TAB (TYLENOL) PO PRN (20:30)
[2021-01-30] MEDS ORDERED: LOPERAMIDE 2 MG (IMODIUM) TABLET PO PRN (20:30)
[2021-01-30] MEDS ORDERED: MELATONIN 3 MG TABLET PO PRN (20:30)
[2021-01-30] MEDS ORDERED: CALCIUM CARBONATE 500 MG (TUMS) TAB.CHEW PO PRN (20:30)
[2021-01-30] MEDS ORDERED: morphine INJ 4 MG/ML 1 ML (VIAL/SYRINGE) IV PRN (21:30)
[2021-01-30] MEDS: SENNA W/DOCUSATE (SENOKOT S) TABLET PO SCH (21:47)
[2021-01-30] MEDS: polyethylene glycoL POWDER 17 GM (MIRALAX) PACK PO SCH (21:49)
[2021-01-30] MEDS: ENOXAPARIN 40 MG/0.4 ML (LOVENOX) SYR SC SCH (21:58)
[2021-01-30] MEDS: HYDROcodone/APAP 5 MG/325 MG (LORTAB) TAB PO PRN (21:58)
[2021-01-30] MEDS: CATHETER FLUSH 10 ML SYR IV SCH (22:00)
[2021-01-30] MEDS ORDERED: KETOROLAC 30 MG/ML VIAL IV PRN (22:00)
[2021-01-30] MEDS ORDERED: CATHETER FLUSH 10 ML SYR IV PRN (22:00)
[2021-01-31] VITALS (7 sets, daily range): BP systolic 104–125; BP diastolic 53–80
[2021-01-31] MEDS: PIPERACILLIN/TAZO 4.5 GM/NS 100 ML IV SCH ×8 (00:52→23:30)
[2021-01-31] MEDS: HYDROcodone/APAP 5 MG/325 MG (LORTAB) TAB PO PRN ×4 (05:17→20:18)
[2021-01-31] MEDS: CATHETER FLUSH 10 ML SYR IV SCH ×3 (05:24→21:58)
[2021-01-31] MEDS: inSUlin ASPART (NovoLOG) 1 UNIT/0.01 ML (CHARGE PER UNIT) SC SCH ×4 (05:40→21:03)
[2021-01-31 05:52] LABS: BASOPHILS # (AUTO) 0.1 10^3/uL (0.0-0.1); BASOPHILS % (AUTO) 1 % (0-10); EOSINOPHILS # (AUTO) 0.3 10^3/uL (0.0-0.3); EOSINOPHILS % (AUTO) 4 % (0-10); HEMATOCRIT 30 % (35-52); HEMOGLOBIN 9.8 g/dL (11.5-16.0); LYMPHOCYTES # (AUTO) 1.6 10^3/uL (1.0-4.0); LYMPHOCYTES % (AUTO) 21 % (12-44); MEAN CORPUSCULAR HEMOGLOBIN 29 pg (25-34); MEAN CORPUSCULAR HGB CONC 33 g/dL (32-36); MEAN CORPUSCULAR VOLUME 90 fL (80-99); MEAN PLATELET VOLUME 9.4 fL (9.0-12.2); MONOCYTES # (AUTO) 0.8 10^3/uL (0.0-1.0); MONOCYTES % (AUTO) 11 % (0-12); NEUTROPHILS # (AUTO) 4.5 10^3/uL (1.8-7.8); NEUTROPHILS % (AUTO) 62 % (42-75); PLATELET COUNT 342 10^3/uL (130-400); WHITE BLOOD COUNT 7.3 10^3/uL (4.3-11.0)
[2021-01-31 06:03] LABS: ALBUMIN 3.5 GM/DL (3.2-4.5); POTASSIUM 3.7 MMOL/L (3.6-5.0)
[2021-01-31 06:05] LABS: CALCIUM 9.1 MG/DL (8.5-10.1)
[2021-01-31 06:06] LABS: TOTAL PROTEIN 6.5 GM/DL (6.4-8.2)
[2021-01-31 06:08] LABS: BILIRUBIN,TOTAL 0.4 MG/DL (0.1-1.0)
[2021-01-31 06:09] LABS: CREATININE SERUM 0.73 MG/DL (0.60-1.30)
[2021-01-31] MEDS ORDERED: ACETAMINOPHEN 325 MG TABLET PO PRN (08:00)
[2021-01-31] MEDS: VANCOMYCIN INJECTION 1,750 MG in NS IV 500 ML 500 ML IV SCH ×2 (08:10→18:40)
--- NOTE | 2021-01-31 08:52 | Consultation - Surgery ---
JESS SYKESOR 01/31/21 0851: History of Present Illness History of Present Illness Patient Consulted On(marty/time) 01/31/21 08:45 Date Seen by Provider: Jan 31, 2021 Time Seen by Provider: 08:40 History of Present Illness Patient is a 45yo female with complaint of RLE pain/swelling. She was in the hospital on friday for this problem and was treated with ancef. She was d/c with rx for Cefdinir which she was unable to afford. The pain started worsening on friday and she returned to hospital friday. She first noticed a blister on her achilles on friday morning, and then noticed the swelling/redness on the leg later that day. She reportedly had a temp of 101.2 sat night. Pain is currently 5/10. Denies any current nausea/vomiting but did vomit on friday morning. She had sweats/chills all friday night and last night as well. Denies any chest pain, palpitations, headache. Allergies and Home Medications Allergies Coded Allergies: methocarbamol (Unverified Allergy, Unknown, 03/02/20) fentanyl (Verified Adverse Reaction, Unknown, 03/02/20) Patient Home Medication List Albuterol Sulfate (Proair Hfa) 1 Puff Puff, 2 PUFF IH Q4H PRN for SHORTNESS OF BREATH, (Reported) Entered as Reported by: SUHA OLIVER on 01/31/211324 Last Action: Reviewed Brexpiprazole (Rexulti) 2 Mg Tablet, 2 MG PO HS, (Reported) Entered as Reported by: JOSE R JAMES on 05/10/172104 Last Action: Reviewed Buspirone HCl (Buspirone HCl) 30 Mg Tablet, 30 MG PO BID, (Reported) Entered as Reported by: SUHA OLIVER on 01/31/21 1334 Last Action: Reviewed Escitalopram Oxalate (Escitalopram Oxalate) 20 Mg Tablet, 20 MG PO HS, (Reported) Entered as Reported by: SUHA OLIVER on 01/31/211324 Last Action: Reviewed Eszopiclone (Lunesta) 2 Mg Tablet, 2 MG PO HS, (Reported) Entered as Reported by: SUHA OLIVER on 01/31/211324 Last Action: Reviewed Ibuprofen (Ibuprofen) 200 Mg Tablet, 400-600 MG PO Q8H PRN for PAIN-MILD (1-4), (Reported) Entered as Reported by: SUHA OLIVER on 01/31/211324 Last Action: Reviewed Levothyroxine Sodium (Levothyroxine Sodium) 125 Mcg Tablet, 125 MCG PO HS, (Reported) Entered as Reported by: SUHA OLIVER on 01/31/211324 Last Action: Reviewed Lisinopril (Lisinopril) 2.5 Mg Tablet, 2.5 MG PO HS, (Reported) Entered as Reported by: SUHA OLIVER on 01/31/211324 Last Action: Reviewed Lovastatin (Lovastatin) 20 Mg Tablet, 20 MG PO HS, (Reported) Entered as Reported by: SUHA OLIVER on 01/31/211324 Last Action: Reviewed Metformin HCl (Metformin HCl ER) 500 Mg Tab.er.24h, 500 MG PO BID, (Reported) Entered as Reported by: JOSE R JAMES on 05/10/172104 Last Action: Reviewed Nabumetone (Nabumetone) 500 Mg Tablet, 500 MG PO BID, (Reported) Entered as Reported by: SUHA OLIVER on 01/31/211324 Last Action: Reviewed Tizanidine HCl (Tizanidine HCl) 4 Mg Tablet, 4 TAB PO TID, (Reported) Entered as Reported by: JOSE R JAMES on 12/25/157 Last Action: Reviewed Discontinued Medications Albuterol/Ipratropium (Combivent Respimat Inhal [place]) 4 Gm Aero, 1 PUFF IH QID PRN for SHORTNESS OF BREATH, (Reported) Discontinued Reason: No Longer Taking Entered as Reported by: ISABELLA BARRETO on 04/23/16 1255 Last Action: Discontinued Amoxicillin/Potassium Clav (Augmentin 875-125 Tablet) 1 Each Tablet, 1 EACH PO BID Discontinued Reason: No Longer Taking Prescribed by: HECTOR MONSIVAIS on 11/10/18 1617 Last Action: Discontinued Buspirone HCl (Buspirone HCl) 5 Mg Tablet, 5 MG PO BID, (Reported) Discontinued Reason: Prescription changed Entered as Reported by: EMBER ROJAS on 07/16/17 0812 Last Action: Last Taken Edited Cefdinir (Cefdinir) 300 Mg Capsule, 300 MG PO BID Discontinued Reason: No Longer Taking Prescribed by: MARKUS VARGAS on 01/28/211909 Last Action: Discontinued Levothyroxine Sodium (Levothyroxine Sodium) 150 Mcg Tablet, 150 MCG PO DAILY, (Reported) Discontinued Reason: No Longer Taking Entered as Reported by: SHIRA ALVAREZ on 04/26/16 07 Last Action: Discontinued Lisinopril (Lisinopril) 2.5 Mg Tablet, 2.5 MG PO DAILY, (Reported) Discontinued Reason: No Longer Taking Entered as Reported by: JOSE R JAMES on 05/10/172104 Last Action: Discontinued Lovastatin (Lovastatin) 20 Mg Tablet, 20 MG PO DAILY, (Reported) Discontinued Reason: No Longer Taking Entered as Reported by: EMBER ROJAS on 07/16/17811 Last Action: Discontinued Meloxicam (Mobic) 15 Mg Tablet, 15 MG PO DAILY Discontinued Reason: No Longer Taking Prescribed by: VIDAL GALEANA on 03/02/20 021 Last Action: Discontinued Nabumetone (Nabumetone) 500 Mg Tablet, 500 MG PO BID WITH MEALS, (Reported) Discontinued Reason: No Longer Taking Entered as Reported by: JOSE R JAMES on 05/10/172104 Last Action: Discontinued Nebulizer (Compact Compressor Nebulizer) 1 Each Each, EACH MC UD, (DME) Discontinued Reason: No Longer Taking Prescribed by: NANDO MANCILLA on 07/17/17 0902 Last Action: Discontinued Permethrin (Elimite) 60 Gm Cream..g., 60 GM TP UD Discontinued Reason: No Longer Taking Prescribed by: VIDAL GALEANA on 09/07/191644 Last Action: Discontinued Sulfamethoxazole/Trimethoprim (Bactrim Ds Tablet) 1 Each Tablet, 1 EACH PO BID Discontinued Reason: No Longer Taking Prescribed by: VIDAL GALEANA on 09/07/191644 Last Action: Discontinued Trazodone HCl (Trazodone HCl) 150 Mg Tablet, 150-300 MG PO HS, (Reported) Discontinued Reason: No Longer Taking Entered as Reported by: EMBER ROJAS on 07/16/17811 Last Action: Discontinued Vortioxetine Hydrobromide (Trintellix) 20 Mg Tablet, 20 MG PO HS, (Reported) Discontinued Reason: No Longer Taking Entered as Reported by: JOSE R JAMES on 12/30/17 2105 Last Action: Discontinued Past Gwrvxym-Monkpp-Qvrxls Hx Patient Social History Drug of Choice: THC Smoking Status: Current Everyday Smoker Type Used: Cigarettes 2nd Hand Smoke Exposure: Yes Recent Hopitalizations: No Alcohol Use?: No Substance type: Marijuana Have you traveled recently?: No Immunizations Up To Date Tetanus Booster (TDap): Unknown Date of Influenza Vaccine: Feb 08, 2017 Seasonal Allergies Seasonal Allergies: No Surgeries History of Surgeries: Yes (SEE BELOW) Surgeries: Gallbladder, Hysterectomy, Oophorectomy, Orthopedic, Tracheostomy Respiratory History of Respiratory Disorde: Yes (R LUNG BX;BILAT CHEST TUBES-PNEUMONIA W/VENT W/ TRACH 1995;O2 AT 2L/NC ) Respiratory Disorders: Asthma, Pneumonia, Chronic Bronchitis, Sleep Apnea, COPD Cardiovascular History of Cardiac Disorders: Yes Cardiac Disorders: High Cholesterol, Hypertension Neurological History of Neurological Disord: Yes (lumbar neural foraminal stenosis) Neurological Disorders: Headaches /Migraines, Seizure Disorder Reproductive System Hx Reproductive Disorders: Yes [employer]ENT History: Hysterectomy, Menopausal Genitourinary History of Genitourinary Disor: No Gastrointestinal History of Gastrointestinal Di: Yes Gastrointestinal Disorders: Gastroesophageal Reflux Musculoskeletal History of Musculoskeletal Dis: Yes (lumbar neuroforaminal stenosis;[employer]IN[employer] STIMULATOR 2015; RIGHT HIP PAIN ) Musculoskeletal Disorders: Degenerate Disk Disease, Chronic Back Pain, Fractures Endocrine History of Endocrine Disorders: Yes (OBESITY) Endocrine Disorders: Hypothyroidsim, Diabetes, Non-Insulin dep HEENT History of HEENT Disorders: No Cancer History of Cancer: No Psychosocial History of Psychiatric Problem: Yes Behavioral Health Disorders: Anxiety, Depression Integumentary History of Skin or Integumenta: Yes (MRSA) Blood Transfusions History of Blood Disorders: No Family Medical History Significant Family History: No Pertinent Family Hx Family Medial History: Patient reports no known family medical history. Review of Systems-General Constitutional: No dizziness EENTM: No blurred vision Respiratory: No hemoptysis, No short of breath Cardiovascular: No chest pain, No palpitations Gastrointestinal: No abdominal pain, No constipation Skin: rash (RLE) Psychiatric/Neurological: Tingling (b/l LE) Physical Exam-General Problems Physical Exam Vital Signs Vital Signs - First Documented 01/30/21 16:38 Temp 36.4 Pulse 73 Resp 16 B/P (MAP) 124/71 (88) Pulse Ox 97 O2 Delivery Room Air Capillary Refill : Less Than 3 Seconds General Appearance: WD/WN, no apparent distress HEENT: PERRL/EOMI, pharynx normal Neck: non-tender, supple Respiratory: chest non-tender, normal breath sounds, no respiratory distress, no accessory muscle use Cardiovascular: regular rate, rhythm, no JVD Gastrointestinal: non tender, soft Back: normal inspection Extremities: calf tenderness (R calf tenderness in area of cellulitis), other (mild Cellulitis/erythema RLE extending just below knee. Ruptured vesicle over R achilles tendon) Neurologic/Psychiatric: no motor/sensory deficits, normal mood/affect, oriented x 3 Skin: warm/dry, other (mild Cellulitis/erythema RLE extending just below knee. Ruptured vesicle over R achilles tendon) Data Review Labs Laboratory Tests 01/30/21 16:50: White Blood Count 7.4, Red Blood Count 3.85, Hemoglobin 11.3L, Hematocrit 34L, Mean Corpuscular Volume 89, Mean Corpuscular Hemoglobin 29, Mean Corpuscular Hemoglobin Concent 33, Red Cell Distribution Width 15.9H, Platelet Count 402H, Mean Platelet Volume 9.4, Immature Granulocyte % (Auto) 0, Neutrophils (%) (Auto) 60, Lymphocytes (%) (Auto) 24, Monocytes (%) (Auto) 10, Eosinophils (%) (Auto) 4, Basophils (%) (Auto) 1, Neutrophils # (Auto) 4.5, Lymphocytes # (Auto) 1.8, Monocytes # (Auto) 0.8, Eosinophils # (Auto) 0.3, Basophils # (Auto) 0.1, Immature Granulocyte # (Auto) 0.0, Erythrocyte Sedimentation Rate 76H, Prothrombin Time 13.6, INR Comment 1.0, Activated Partial Thromboplast Time 38H, D-Dimer 0.65H, Sodium Level 139, Potassium Level 3.7, Chloride Level 100, Carbon Dioxide Level 25, Anion Gap 14, Blood Urea Nitrogen 3L, Creatinine 0.72, Estimat Glomerular Filtration Rate 88, BUN/Creatinine Ratio 4, Glucose Level 87, Lactic Acid Level 1.30, Calcium Level 9.7, Corrected Calcium 9.6, Magnesium Level 2.0, Total Bilirubin 0.4, Aspartate Amino Transf (AST/SGOT) 21, Alanine Aminotransferase (ALT/SGPT) 26, Alkaline Phosphatase 76, C-Reactive Protein High Sensitivity 8.15H, Total Protein 7.8, Albumin 4.1, Procalcitonin 0.06, Serum Test, Qualitative NEGATIVE 01/30/21 16:58: Urine Color YELLOW, Urine Clarity CLEAR, Urine pH 6.5, Urine Specific [place] <=1.005, Urine Protein NEGATIVE, Urine Glucose (UA) NEGATIVE, Urine Ketones NE GATIVE, Urine Nitrite NEGATIVE, Urine Bilirubin NEGATIVE, Urine Urobilinogen 0.2, Urine Leukocyte Esterase NEGATIVE, Urine RBC (Auto) NEGATIVE, Urine RBC NONE, Urine WBC NONE, Urine Squamous Epithelial Cells 2-5, Urine Crystals NONE, Urine Bacteria NEGATIVE, Urine Casts NONE, Urine Mucus NEGATIVE, Urine Culture Indicated NO, Urine Opiates Screen NEGATIVE, Urine Oxycodone Screen NEGATIVE, Urine Methadone Screen NEGATIVE, Urine Propoxyphene Screen NEGATIVE, Urine Barbiturates Screen NEGATIVE, Ur Tricyclic Antidepressants Screen NEGATIVE, Urine Phencyclidine Screen NEGATIVE, Urine Amphetamines Screen NEGATIVE, Urine Methamphetamines Screen NEGATIVE, Urine Benzodiazepines Screen NEGATIVE, Urine Cocaine Screen NEGATIVE, Urine Cannabinoids Screen POSITIVEH 01/30/21 21:32: Glucometer 103 01/31/21 05:22: Glucometer 110 01/31/21 05:30: White Blood Count 7.3, Red Blood Count 3.33L, Hemoglobin 9.8L, Hematocrit 30L, Mean Corpuscular Volume 90, Mean Corpuscular Hemoglobin 29, Mean Corpuscular Hemoglobin Concent 33, Red Cell Distribution Width 15.9H, Platelet Count 342, Mean Platelet Volume 9.4, Immature Granulocyte % (Auto) 0, Neutrophils (%) (Auto) 62, Lymphocytes (%) (Auto) 21, Monocytes (%) (Auto) 11, Eosinophils (%) (Auto) 4, Basophils (%) (Auto) 1, Neutrophils # (Auto) 4.5, Lymphocytes # (Auto) 1.6, Monocytes # (Auto) 0.8, Eosinophils # (Auto) 0.3, Basophils # (Auto) 0.1, Immature Granulocyte # (Auto) 0.0, Sodium Level 140, Potassium Level 3.7, Chloride Level 105, Carbon Dioxide Level 22, Anion Gap 13, Blood Urea Nitrogen 7, Creatinine 0.73, Estimat Glomerular Filtration Rate 86, BUN/Creatinine Ratio 10, Glucose Level 101, Calcium Level 9.1, Corrected Calcium 9.5, Total Bilirubin 0.4, Aspartate Amino Transf (AST/SGOT) 16, Alanine Aminotransferase (ALT/SGPT) 23, Alkaline Phosphatase 70, Total Protein 6.5, Albumin 3.5 Assessment/Plan Assessment/Plan Assessment/Plan RLE Cellulitis - mild. continue IV vanc, zosyn. US revealed no signs of DVT. nothing to do surgically at this time, will continue to monitor for changes. Diabetes T2 Chronic low back pain RIO CASE DO 01/31/212148: History of Present Illness History of Present Illness History of Present Illness Consult requested by Dr. Owens for right lower extremity cellulitis. Patient is a 45-year-old female who states she started having a blister on her Achilles on Friday. Patient started having more swelling and tenderness to the area. She went to the emergency department and started having more erythema to the area. She was given some antibiotics however they were too expensive to start. Patient started having worsening of her erythema going up into the calf and has had episodes of nausea and vomiting. Patient pain is sharp and is moderate. No radiation of pain. The leg is tender to touch. Patient states that nothing was seems to make it better or worse. Patient had to return last night to the emergency department due to worsening pain. Patient was admitted she states that since being admitted the erythema has gone down significantly. The leg is wharf tender head. Otherwise she is doing pretty good. She denies any nausea vomiting fever sweats chills shortness of breath or chest pain currently. Allergies and Home Medications Allergies Coded Allergies: methocarbamol (Unverified Allergy, Unknown, 03/02/20) fentanyl (Verified Adverse Reaction, Unknown, 03/02/20) Patient Home Medication List Home Medication List Reviewed: Yes Albuterol Sulfate (Proair Hfa) 1 Puff Puff, 2 PUFF IH Q4H PRN for SHORTNESS OF BREATH, (Reported) Entered as Reported by: SUHA OLIVER on 01/31/21 1325 Last Action: Reviewed Brexpiprazole (Rexulti) 2 Mg Tablet, 2 MG PO HS, (Reported) Entered as Reported by: JOSE R JAMES on 05/10/17 2105 Last Action: Reviewed Buspirone HCl (Buspirone HCl) 30 Mg Tablet, 30 MG PO BID, (Reported) Entered as Reported by: SUHA OLIVER on 01/31/21 1334 Last Action: Reviewed Escitalopram Oxalate (Escitalopram Oxalate) 20 Mg Tablet, 20 MG PO HS, (Reported) Entered as Reported by: SUHA OLIVER on 01/31/211324 Last Action: Reviewed Eszopiclone (Lunesta) 2 Mg Tablet, 2 MG PO HS, (Reported) Entered as Reported by: SUHA OLIVER on 01/31/211324 Last Action: Reviewed Ibuprofen (Ibuprofen) 200 Mg Tablet, 400-600 MG PO Q8H PRN for PAIN-MILD (1-4), (Reported) Entered as Reported by: SUHA OLIVER on 01/31/211324 Last Action: Reviewed Levothyroxine Sodium (Levothyroxine Sodium) 125 Mcg Tablet, 125 MCG PO HS, (Reported) Entered as Reported by: SUHA OLIVER on 01/31/211324 Last Action: Reviewed Lisinopril (Lisinopril) 2.5 Mg Tablet, 2.5 MG PO HS, (Reported) Entered as Reported by: SUHA OLIVER on 01/31/211324 Last Action: Reviewed Lovastatin (Lovastatin) 20 Mg Tablet, 20 MG PO HS, (Reported) Entered as Reported by: SUHA OLIVER on 01/31/211324 Last Action: Reviewed Metformin HCl (Metformin HCl ER) 500 Mg Tab.er.24h, 500 MG PO BID, (Reported) Entered as Reported by: JOSE R JAMES on 05/10/172104 Last Action: Reviewed Nabumetone (Nabumetone) 500 Mg Tablet, 500 MG PO BID, (Reported) Entered as Reported by: SUHA OLIVER on 01/31/211324 Last Action: Reviewed Tizanidine HCl (Tizanidine HCl) 4 Mg Tablet, 4 TAB PO TID, (Reported) Entered as Reported by: JOSE R JAMES on 12/25/15 4019 Last Action: Reviewed Discontinued Medications Albuterol/Ipratropium (Combivent Respimat Inhal [place]) 4 Gm Aero, 1 PUFF IH QID PRN for SHORTNESS OF BREATH, (Reported) Discontinued Reason: No Longer Taking Entered as Reported by: ISABELLA BARRETO on 04/23/16 1255 Last Action: Discontinued Amoxicillin/Potassium Clav (Augmentin 875-125 Tablet) 1 Each Tablet, 1 EACH PO BID Discontinued Reason: No Longer Taking Prescribed by: HECTOR MONSIVAIS on 11/10/18 1617 Last Action: Discontinued Buspirone HCl (Buspirone HCl) 5 Mg Tablet, 5 MG PO BID, (Reported) Discontinued Reason: Prescription changed Entered as Reported by: EMBER ROJAS on 07/16/17811 Last Action: Last Taken Edited Cefdinir (Cefdinir) 300 Mg Capsule, 300 MG PO BID Discontinued Reason: No Longer Taking Prescribed by: MARKUS VARGAS on 01/28/21 191 Last Action: Discontinued Levothyroxine Sodium (Levothyroxine Sodium) 150 Mcg Tablet, 150 MCG PO DAILY, (Reported) Discontinued Reason: No Longer Taking Entered as Reported by: SHIRA ALVAREZ on 04/26/16 07 Last Action: Discontinued Lisinopril (Lisinopril) 2.5 Mg Tablet, 2.5 MG PO DAILY, (Reported) Discontinued Reason: No Longer Taking Entered as Reported by: JOSE R JAMES on 05/10/172104 Last Action: Discontinued Lovastatin (Lovastatin) 20 Mg Tablet, 20 MG PO DAILY, (Reported) Discontinued Reason: No Longer Taking Entered as Reported by: EMBER ROJAS on 07/16/17811 Last Action: Discontinued Meloxicam (Mobic) 15 Mg Tablet, 15 MG PO DAILY Discontinued Reason: No Longer Taking Prescribed by: VIDAL GALEANA on 03/02/20 021 Last Action: Discontinued Nabumetone (Nabumetone) 500 Mg Tablet, 500 MG PO BID WITH MEALS, (Reported) Discontinued Reason: No Longer Taking Entered as Reported by: JOSE R JAMES on 05/10/172104 Last Action: Discontinued Nebulizer (Compact Compressor Nebulizer) 1 Each Each, EACH MC UD, (DME) Discontinued Reason: No Longer Taking Prescribed by: NANDO MANCILLA on 07/17/17 0902 Last Action: Discontinued Permethrin (Elimite) 60 Gm Cream..g., 60 GM TP UD Discontinued Reason: No Longer Taking Prescribed by: VIDAL GALEANA on 09/07/191644 Last Action: Discontinued Sulfamethoxazole/Trimethoprim (Bactrim Ds Tablet) 1 Each Tablet, 1 EACH PO BID Discontinued Reason: No Longer Taking Prescribed by: VIDAL GALEANA on 09/07/191644 Last Action: Discontinued Trazodone HCl (Trazodone HCl) 150 Mg Tablet, 150-300 MG PO HS, (Reported) Discontinued Reason: No Longer Taking Entered as Reported by: EMBER ROJAS on 07/16/17 0812 Last Action: Discontinued Vortioxetine Hydrobromide (Trintellix) 20 Mg Tablet, 20 MG PO HS, (Reported) Discontinued Reason: No Longer Taking Entered as Reported by: JOSE R JAMES on 05/10/172104 Last Action: Discontinued Past Pjpmikp-Tjzwqi-Vhalrw Hx Reviewed Nursing Assessment Reviewed/Agree w Nursing PMH: Yes Family Medical History Significant Family History: No Pertinent Family Hx Family Medial History: Patient reports no known family medical history. Review of Systems-General Constitutional: No dizziness; fever EENTM: No blurred vision, No double vision Respiratory: No cough, No hemoptysis, No short of breath Cardiovascular: No chest pain, No palpitations Gastrointestinal: No abdominal pain, No constipation Genitourinary: No decreased output, No discharge Musculoskeletal: No back pain; other (Right leg pain) Skin: change in color; No change in hair/nails; rash (RLE, erythema below the knee down to foot.) Psychiatric/Neurological: Denies Anxiety, Denies Depressed, Denies Emotional Problems; Tingling (b/l LE) Physical Exam-General Problems Physical Exam General Appearance: WD/WN, no apparent distress HEENT: PERRL/EOMI, normal ENT inspection Neck: non-tender, supple Respiratory: chest non-tender, no respiratory distress, no accessory muscle use Cardiovascular: regular rate, rhythm Gastrointestinal: non tender, soft Rectal: deferred Back: normal inspection, no CVA tenderness Extremities: calf tenderness (R calf tenderness in area of cellulitis), other (mild Cellulitis/erythema RLE extending just below knee. Ruptured vesicle over R achilles tendon) Neurologic/Psychiatric: no motor/sensory deficits, normal mood/affect, oriented x 3 Skin: warm/dry, other (mild Cellulitis/erythema RLE extending just below knee. Ruptured vesicle over R achilles tendon) Lymphatic: no adenopathy Assessment/Plan Assessment/Plan Assessment/Plan RLE Cellulitis - mild, felt outpatient therapy due to noncompliancepatient unable to afford antibiotics prescribed upon initial evaluation in the emergency department . continue antibiotics. US revealed no signs of DVT. nothing to do surgically at this time, will continue to monitor for changes. Diabetes T2 Chronic low back pain continue IV vanc, zosyn. US revealed no signs of DVT. nothing to do surgically at this time, will continue to monitor for changes. Supervisory-Addendum Brief Verification & Attestation Participated in pt care: history, MDM, physical Personally performed: exam, history, MDM, supervision of care Care discussed with: Medical Student Procedures: n/a Results interpretation: Verified all documentation Verification and Attestation of Medical Student E/M Service A medical student performed and documented this service in my presence. I reviewed and verified all information documented by the medical student and made modifications to such information, when appropriate. I personally performed the physical exam and medical decision making. Rio Case, Jan 31, 2021,21:49 DANISH SYKES Jan 31, 2021 08:51 RIO CASE DO Jan 31, 2021 21:49
[2021-01-31] MEDS: polyethylene glycoL POWDER 17 GM (MIRALAX) PACK PO SCH ×2 (10:37→21:03)
[2021-01-31] MEDS: SENNA W/DOCUSATE (SENOKOT S) TABLET PO SCH ×2 (10:37→21:03)
[2021-01-31] MEDS: NICOTINE 21 MG (NICODERM) PATCH TD SCH (10:51)
[2021-01-31] MEDS ORDERED: ESZO2TAB4 PO (13:25)
[2021-01-31] MEDS ORDERED: LISI2.5T13 PO (13:25)
[2021-01-31] MEDS ORDERED: LEVO125T6 PO (13:25)
[2021-01-31] MEDS ORDERED: ESCI20TA39 PO (13:25)
[2021-01-31] MEDS ORDERED: IBUP-2473 PO (13:25)
[2021-01-31] MEDS ORDERED: NABU500T8 PO (13:25)
[2021-01-31] MEDS ORDERED: LOVA20TA2 PO (13:25)
[2021-01-31] MEDS ORDERED: RT-ALBUINH IH (13:25)
[2021-01-31] MEDS ORDERED: BUSP30TA2 PO (13:34)
--- NOTE | 2021-01-31 13:43 | History & Physical-Hospitalist ---
BOB SEYMOUR 01/31/21 1343: History of Present Illness HPI/Chief Complaint Mee Freeman is a 45yo female with a past medical history of diabetesm asthma, COPD, ALIS, HTN, who was admitted 01/31 for right leg cellulitis. Pt reports onsets of fevers, chills, nausea and vomiting on 01/27. Tmax was 101.2. On 01/28 pt reported onset of diffuse erythema, swelling, and pain of lower right leg. she subsequently went to the ER. At the ER she was given cefazolin and discharged on omnicef. However, following discharge pt was unable to fill antibiotics order due to the li. Pt reports pain 8/10 on 01/29 and 01/30.During this time pt reports decreased swelling and erythema despite increased pain. Because of the pain, pt returned to the ER 01/31, and was subsequently admitted to [facility] for management. Admission labs were significant for elevated ESR 76, CRP 8, D-dimer 0.65. No SIRS criteria were met. Doppler US was negative for DVT. Today pt reported decreased pain, swelling and redness. Pt showed the author of this note a picture of her leg from 01/28, and drastic improvement has been made. Denies fevers, chills, SOB. Denies chest pain, palpitations. Endorses mild diarrhea. Incidentally, pt reports history of "seizures" associated with light headedness and w/out incontinence and post-ictal confusion. 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 Pt believes that everything was normal. Date Seen 01/31/21 Attending Physician Asha Christopher DO [facility] Referring Physician Date of Admission Jan 30, 2021 at 17:40 Home Medications & Allergies Home Medications Reviewed patient Home Medication Reconciliation performed by pharmacy medication reconciliations ekg technician and/or nursing. Patients Allergies have been reviewed. Allergies Allergies Coded Allergies methocarbamol (Unverified Allergy, Unknown, 03/02/20) fentanyl (Verified Adverse Reaction, Unknown, 03/02/20) Past Oizhqeo-Rvgkxp-Ibkfoo Hx Patient Social History Tobacco Use?: Yes Tobacco type used: Cigarettes Smoking Status: Current Everyday Smoker Use of E-Cig and/or Vaping dev: No Substance use?: Yes Substance type: Marijuana Substance frequency: Daily Alcohol Use?: No Alcohol Frequency: Several times a month Pt feels they are or have been: No Immunizations Up To Date Date of Influenza Vaccine: Feb 08, 2017 First/Initial COVID19 Vaccinat: NONE Second COVID19 Vaccination Joshua: NONE Tetanus Booster (TDap): Less Than 5 Years Hepatitis A: Yes Hepatitis B: Yes Seasonal Allergies Seasonal Allergies: No Current Status status: No status: No Advance Directives: No Communicates: Verbally Primary Language: Danish Preferred Spoken Language: Danish Is interpretation needed?: No Past Medical History Surgeries: Gallbladder, Hysterectomy, Oophorectomy, Orthopedic, Tracheostomy Asthma, Pneumonia, Chronic Bronchitis, Sleep Apnea, COPD Currently Using CPAP: No Currently Using BIPAP: No High Cholesterol, Hypertension Headaches /Migraines, Seizure Disorder 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 No Pertinent Family Hx SOCIAL HISTORY: -SMOKES 1 PPD -ETOH--OCCASIONAL USE -DRUGS-DAILY MARIJUANA USE PSH: -RIGHT ARM FX/ORIF--RODS/SCREWS -BILATERAL CHEST TUBES AND TRACHEOSTOMY FOR PNEUMONIA -RIGHT LUNG BIOPSY -DENTAL SURGERY -SPINAL CORD STIMULATOR 2015 -HYSTERECTOMY/LEFT SALPINGO-OOPHORECTOMY -CHOLECYSTECTOMY -COLONOSCOPY 09/2015-NORMAL Physical Exam Physical Exam Vital Signs Vital Signs - First Documented 01/30/21 16:38 Temp 36.4 Pulse 73 Resp 16 B/P (MAP) 124/71 (88) Pulse Ox 97 O2 Delivery Room Air Capillary Refill : Less Than 3 Seconds Height, Weight, BMI Height: 5'9.00" Weight: 247lbs. 0.0oz. [id number]; 36.60 BMI Method:Actual General Appearance: No Apparent Distress, WD/WN Neck: Limited Range of Motion Respiratory: Chest Non Tender, Lungs Clear, Normal Breath Sounds, No Accessory Muscle Use, No Respiratory Distress Cardiovascular: Regular Rate, Rhythm, No Edema, No Murmur, Normal Peripheral Pulses Gastrointestinal: Normal Bowel Sounds Extremity: Normal Capillary Refill, Calf Tenderness, Inflammation, Other (Erythema of anterior part of lower right leg) Neurologic/Psychiatric: Alert, Oriented x3 Results Results/Procedures Labs Laboratory Tests 01/30/21 16:50 01/31/21 05:30 Patient resulted labs reviewed. Assessment/Plan Admission Diagnosis R. leg cellulitis Admission Status: Inpatient Order (span 2 midnights) Reason for Inpatient Admission: Management of infection Assessment and Plan Mee Freeman is a 45yo female with a past medical history of diabetesm asthma, COPD, ALIS, HTN, who was admitted 01/31 for right leg cellulitis Current medical problems include the following: R. Leg cellulitis -01/30: Admission labs significant for ESR 76, CRP 8 -Doppler US unremarkable -Surgery consulted: no intervention indicated at this time -01/31: Significant improvement in pain and erythema Plan: -Continue Vanc and Zosyn Day 2 -Tentative discharge 02/01 Diabetes -CORRUGATOR HELPER metformin held -Continue insulin sliding scale COPD -No CORRUGATOR HELPER meds or supp oxygen at baseline -Continue to follow ASHA CHRISTOPHER DO 02/01/21 0501: History of Present Illness HPI/Chief Complaint CC: Right leg cellulitis HPI: This is a 45yoWF clinic Pt of [facility] who presented with right leg edema and swelling. Ultrasound showed no DVT but consistent with cellulitis. She had been diagnosed with cellulitis two days before, she did not get her prescription filled and she worsened. We will heplock her fluid, DC her telemetry and maintain Vanc and Zosyn and restart all of her home meds. Source: patient Exam Limitations: no limitations Time Seen by a Provider: 11:00 Past Seaeczh-Swrrhz-Ipwtph Hx Patient Social History Marrital Status: single Employed/Student: unemployed Tobacco Use?: Yes Family Medical History Patient reports no known family medical history. Review of Systems Constitutional: see HPI, fever, malaise, weakness EENTM: no symptoms reported Respiratory: no symptoms reported Cardiovascular: no symptoms reported Gastrointestinal: no symptoms reported Musculoskeletal: no symptoms reported Skin: rash Psychiatric/Neurological: No Symptoms Reported Physical Exam Physical Exam General Appearance: No Apparent Distress Eyes: Right Eye Normal Inspection, Right Eye PERRL HEENT: PERRL/EOMI, TMs Normal, Normal ENT Inspection, Pharynx Normal, Moist Mucous Membranes Neck: Full Range of Motion, Normal Inspection, Non Tender Respiratory: Chest Non Tender, Lungs Clear, Normal Breath Sounds, No Accessory Muscle Use, No Respiratory Distress Cardiovascular: Regular Rate, Rhythm, No Edema, No Gallop, No JVD, No Murmur, Normal Peripheral Pulses Gastrointestinal: Normal Bowel Sounds, No Organomegaly, No Pulsatile Mass, Non Tender, Soft Back: Normal Inspection, No CVA Tenderness, No Vertebral Tenderness Extremity: Normal Capillary Refill, Normal Inspection, Normal Range of Motion, Non Tender, No Calf Tenderness, Calf Tenderness, Inflammation, Other (Erythema of anterior part of lower right leg) Neurologic/Psychiatric: Alert, Oriented x3, No Motor/Sensory Deficits, Normal Mood/Affect Skin: Normal Color, Warm/Dry Lymphatic: No Adenopathy Assessment/Plan Admission Diagnosis Assessment: Right leg cellulitis failed p.o. medication Obesity Seizure disorder Hypertension Plan: Antibiotics Lovenox Admission Status: Inpatient Order (span 2 midnights) Reason for Inpatient Admission: Oh my Godailed po abx I tell you what lids lips bring them in f Diagnosis/Problems Diagnosis/Problems (1) Cellulitis of right lower extremity without foot Status: Acute (2) Non-insulin dependent diabetes mellitus Status: Acute Supervisory-Addendum Brief Verification & Attestation Participated in pt care: history, MDM, physical Personally performed: exam, history, MDM, supervision of care Care discussed with: Medical Student Procedures: n/a Results interpretation: Verified all documentation Verification and Attestation of Medical Student E/M Service A medical student performed and documented this service in my presence. I reviewed and verified all information documented by the medical student and made modifications to such information, when appropriate. I personally performed the physical exam and medical decision making. Asha Christopher, Feb 01, 2021,05:01 BOB SEYMOUR Jan 31, 2021 13:43 ASHA CHRISTOPHER DO Feb 01, 2021 05:01
[2021-01-31] MEDS: ALPRAZolam 0.25 MG (XANAX) TAB PO PRN ×2 (17:02→21:56)
[2021-01-31] MEDS: ENOXAPARIN 40 MG/0.4 ML (LOVENOX) SYR SC SCH (20:10)
[2021-02-01 04:00] VITALS: BP 112/66
[2021-02-01] MEDS ORDERED: IBUPROFEN TABLET 200 MG TAB PO PRN (05:00)
[2021-02-01] MEDS ORDERED: RT-ALBUTEROL SULF 2.5 MG/3 ML PRE-MIX VIAL IH PRN (05:00)
[2021-02-01] MEDS: CATHETER FLUSH 10 ML SYR IV SCH ×3 (05:43→22:46)
[2021-02-01] MEDS: inSUlin ASPART (NovoLOG) 1 UNIT/0.01 ML (CHARGE PER UNIT) SC SCH ×4 (05:43→21:10)
[2021-02-01] MEDS ORDERED: TROUGH ORDER-PHARMACY XX NR (06:00)
[2021-02-01 06:12] LABS: BASOPHILS # (AUTO) 0.1 10^3/uL (0.0-0.1); BASOPHILS % (AUTO) 1 % (0-10); EOSINOPHILS # (AUTO) 0.3 10^3/uL (0.0-0.3); EOSINOPHILS % (AUTO) 4 % (0-10); HEMATOCRIT 29 % (35-52); HEMOGLOBIN 9.4 g/dL (11.5-16.0); LYMPHOCYTES # (AUTO) 1.7 10^3/uL (1.0-4.0); LYMPHOCYTES % (AUTO) 24 % (12-44); MEAN CORPUSCULAR HEMOGLOBIN 29 pg (25-34); MEAN CORPUSCULAR HGB CONC 32 g/dL (32-36); MEAN CORPUSCULAR VOLUME 90 fL (80-99); MONOCYTES # (AUTO) 0.7 10^3/uL (0.0-1.0); MONOCYTES % (AUTO) 10 % (0-12); NEUTROPHILS # (AUTO) 4.2 10^3/uL (1.8-7.8); NEUTROPHILS % (AUTO) 61 % (42-75); PLATELET COUNT 321 10^3/uL (130-400)
[2021-02-01 06:26] LABS: ALBUMIN 3.4 GM/DL (3.2-4.5); POTASSIUM 4.2 MMOL/L (3.6-5.0)
[2021-02-01 06:28] LABS: TOTAL PROTEIN 6.5 GM/DL (6.4-8.2)
[2021-02-01 06:30] LABS: BILIRUBIN,TOTAL 0.3 MG/DL (0.1-1.0)
[2021-02-01 06:32] LABS: CREATININE SERUM 0.75 MG/DL (0.60-1.30)
[2021-02-01 06:44] LABS: VANCOMYCIN,TROUGH 14.6 UG/ML (10.0-20.0)
--- NOTE | 2021-02-01 07:00 | Progress Note - Surgery ---
DANISH SYKES 02/01/21 0700: Subjective Date Seen by a Provider: Feb 01, 2021 Time Seen by a Provider: 06:30 Subjective/Events-last exam Patient reports feeling well this morning. Her leg pain has improved. She denies any sweats/chills, nausea/vomiting, SOA or palpitations Focused Exam Lactate Level 01/30/21 16:50: Lactic Acid Level 1.30 Objective Exam Vital Signs Date Time Temp Pulse Resp B/P (MAP) Pulse Ox O2 Delivery O2 Flow Rate FiO2 02/01/21 04:00 36.4 52 18 112/66 (81) 95 Room Air 01/31/21 23:30 36.0 53 18 117/63 (81) 94 Room Air 01/31/21 20:10 Room Air 01/31/21 19:46 36.5 62 18 125/80 (95) 98 Room Air 01/31/21 16:00 36.0 63 18 122/80 (94) 95 Room Air 01/31/21 12:00 36.6 56 20 104/68 (80) 96 Room Air 01/31/21 08:00 35.9 62 20 107/70 (82) 97 Room Air 01/31/21 08:00 Room Air 01/31/21 07:00 59 I & O 02/01/21 06:59 Intake Total 2575.0 ml Output Total 1350 ml Balance 1225.0 ml Capillary Refill : Less Than 3 Seconds General Appearance: No Apparent Distress, WD/WN HEENT: PERRL/EOMI, Pharynx Normal, Moist Mucous Membranes Neck: Full Range of Motion, Normal Inspection, Non Tender Respiratory: Chest Non Tender, Lungs Clear, Normal Breath Sounds, No Accessory Muscle Use, No Respiratory Distress Cardiovascular: Regular Rate, Rhythm, No JVD, Normal Peripheral Pulses Gastrointestinal: non tender, soft Extremity: Normal Inspection, Non Tender, No Calf Tenderness, Calf Tenderness, Inflammation, Other (Erythema of anterior part of lower right leg - improving) Neurologic/Psychiatric: Alert, Oriented x3, Normal Mood/Affect Skin: Normal Color, Warm/Dry Lymphatic: No Adenopathy Results Lab Laboratory Tests 01/31/21 11:09: Glucometer 94 01/31/21 16:03: Glucometer 102 01/31/21 20:08: Glucometer 93 02/01/21 05:30: White Blood Count 7.0, Red Blood Count 3.21L, Hemoglobin 9.4L, Hematocrit 29L, Mean Corpuscular Volume 90, Mean Corpuscular Hemoglobin 29, Mean Corpuscular Hemoglobin Concent 32, Red Cell Distribution Width 15.7H, Platelet Count 321, Mean Platelet Volume 10.0, Immature Granulocyte % (Auto) 0, Neutrophils (%) (Auto) 61, Lymphocytes (%) (Auto) 24, Monocytes (%) (Auto) 10, Eosinophils (%) (Auto) 4, Basophils (%) (Auto) 1, Neutrophils # (Auto) 4.2, Lymphocytes # (Auto) 1.7, Monocytes # (Auto) 0.7, Eosinophils # (Auto) 0.3, Basophils # (Auto) 0.1, Immature Granulocyte # (Auto) 0.0, Sodium Level 139, Potassium Level 4.2, Chloride Level 104, Carbon Dioxide Level 25, Anion Gap 10, Blood Urea Nitrogen 7, Creatinine 0.75, Estimat Glomerular Filtration Rate 84, BUN/Creatinine Ratio 9, Glucose Level 97, Calcium Level 9.0, Corrected Calcium 9.5, Total Bilirubin 0.3, Aspartate Amino Transf (AST/SGOT) 16, Alanine Aminotransferase (ALT/SGPT) 22, Alkaline Phosphatase 65, Total Protein 6.5, Albumin 3.4, Vancomycin Level Trough 14.6 02/01/21 05:33: Glucometer 108 Microbiology 01/30/21 Blood Culture - Preliminary, Resulted No growth Assessment/Plan Assessment/Plan Assessment/Plan RLE Cellulitis - mild and improving, failed outpatient therapy due to noncompliancepatient unable to afford antibiotics prescribed upon initial evaluation in the emergency department . continue antibiotics. US revealed no signs of DVT. nothing to do surgically at this time, will continue to monitor for changes. Diabetes T2 Chronic low back pain RIO HEAD DO 02/01/21 2142: Subjective Subjective/Events-last exam Erythema less. right lower extremity leg pain improving. Minimal at this time even when touched. Denies any new complaints at this time. Denies n/v fever sweats chills shortness of breath or chest pain. Objective Exam General Appearance: No Apparent Distress, WD/WN HEENT: PERRL/EOMI Neck: Full Range of Motion, Non Tender Respiratory: Chest Non Tender, No Accessory Muscle Use, No Respiratory Distress Cardiovascular: Regular Rate, Rhythm, No JVD Gastrointestinal: non tender, soft Extremity: Calf Tenderness (less), Inflammation (less), Other (Erythema of anterior part of lower right leg - improving) Neurologic/Psychiatric: Alert, Oriented x3, Normal Mood/Affect Skin: Normal Color, Warm/Dry Lymphatic: No Adenopathy Assessment/Plan Assessment/Plan Assessment/Plan RLE Cellulitis - mild and improving, failed outpatient therapy (due to inability to afford abx) Diabetes T2 Chronic low back pain continue antibiotics, right lower ext continues to improve. US revealed no signs of DVT. nothing to do surgically at this time likely home soon Supervisory-Addendum Brief Verification & Attestation Participated in pt care: history, MDM, physical Personally performed: exam, history, MDM, supervision of care Care discussed with: Medical Student Procedures: n/a Results interpretation: Verified all documentation Verification and Attestation of Medical Student E/M Service A medical student performed and documented this service in my presence. I reviewed and verified all information documented by the medical student and made modifications to such information, when appropriate. I personally performed the physical exam and medical decision making. Rio Head, Feb 01, 2021,21:45 DANISH SYKES Feb 01, 2021 07:00 RIO HEAD DO Feb 01, 2021 21:42
[2021-02-01] MEDS: VANCOMYCIN INJECTION 1,750 MG in NS IV 500 ML 500 ML IV SCH ×2 (07:17→20:24)
[2021-02-01 08:00] VITALS: BP 122/77
[2021-02-01] MEDS: NICOTINE 21 MG (NICODERM) PATCH TD SCH (08:56)
[2021-02-01] MEDS: PIPERACILLIN/TAZO 4.5 GM/NS 100 ML IV SCH ×4 (08:56→17:34)
[2021-02-01] MEDS: metFORMIN XR 500 MG (GLUCOPHAGE XR) TAB PO SCH ×2 (08:57→20:25)
[2021-02-01] MEDS: NICOTINE PATCH REMOVAL TP SCH (08:57)
[2021-02-01] MEDS: busPIRone 15 MG (BUSPAR) TABLET PO SCH ×2 (08:57→20:25)
[2021-02-01] MEDS: polyethylene glycoL POWDER 17 GM (MIRALAX) PACK PO SCH ×2 (08:57→20:43)
[2021-02-01] MEDS: SENNA W/DOCUSATE (SENOKOT S) TABLET PO SCH ×2 (08:58→20:43)
[2021-02-01] MEDS ORDERED: NON-FORMULARY MEDICATION 1 EA EA (Nabumetone 500 MG) PO SCH (09:00)
[2021-02-01 12:00] VITALS: BP 108/70
[2021-02-01] MEDS: ALPRAZolam 0.25 MG (XANAX) TAB PO PRN ×2 (13:35→21:36)
--- NOTE | 2021-02-01 14:32 | Progress Note - Hospitalist ---
BOB SEYMOUR 02/01/21 1432: Subjective HPI/CC On Admission Date Seen by Provider: Feb 01, 2021 Time Seen by Provider: 10:15 CC: Right leg cellulitis HPI: This is a 45yoWF clinic Pt of [facility] who presented with right leg edema and swelling. Ultrasound showed no DVT but consistent with cellulitis. She had been diagnosed with cellulitis two days before, she did not get her prescription filled and she worsened. We will heplock her fluid, DC her telemetry and maintain Vanc and Zosyn and restart all of her home meds. Subjective/Events-last exam Today Mee is feeling much better. Reports decreased pain and swelling. Is able to ambulate and toilet adequately. Has no questions or concerns. Denies fevers, chills, SOB. Denies chest pain, palpitations. Denies diarrhea. Denies nausea, vomiting. Focused Exam Lactate Level 01/30/21 16:50: Lactic Acid Level 1.30 Objective Exam Vital Signs Vital Signs Date Time Temp Pulse Resp B/P (MAP) Pulse Ox O2 Delivery O2 Flow Rate FiO2 02/01/21 12:00 36.4 63 20 108/70 (83) 97 Room Air Capillary Refill : Less Than 3 Seconds General Appearance: No Apparent Distress, WD/WN Respiratory: Chest Non Tender, Lungs Clear, Normal Breath Sounds, No Accessory Muscle Use, No Respiratory Distress Cardiovascular: Regular Rate, Rhythm, No Edema, No Murmur, Normal Peripheral Pulses Gastrointestinal: Normal Bowel Sounds Extremity: Normal Capillary Refill, Other (Decreased erythema and tenderness of right leg. ) Results/Procedures Lab Laboratory Tests 02/01/21 05:30 Patient resulted labs reviewed. Assessment/Plan Assessment and Plan Assess & Plan/Chief Complaint Mee Freeman is a 45yo female with a past medical history of diabetesm asthma, COPD, ALIS, HTN, who was admitted 01/31 for right leg cellulitis Current medical problems include the following: R. 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 held -Continue insulin sliding scale COPD -No SECRETARY RECEPTIONIST meds or supp oxygen at baseline -Continue to follow ASHA CHRISTOPHRE DO 02/02/21 0543: Subjective Subjective/Events-last exam Right leg improved 1 more day of IV antibiotics required due to the severity of it Assessment/Plan Assessment and Plan Assess & Plan/Chief Complaint 1 more day of IV antibiotics Supervisory-Addendum Brief Verification & Attestation Participated in pt care: history, MDM, physical Personally performed: exam, history, MDM, supervision of care Care discussed with: Medical Student Procedures: n/a Results interpretation: Verified all documentation Verification and Attestation of Medical Student E/M Service A medical student performed and documented this service in my presence. I reviewed and verified all information documented by the medical student and made modifications to such information, when appropriate. I personally performed the physical exam and medical decision making. Asha Christopher, Feb 02, 2021,05:42 BOB SEYMOUR Feb 01, 2021 14:32 ASHA CHRISTOPHER DO Feb 02, 2021 05:43
[2021-02-01] MEDS: HYDROcodone/APAP 5 MG/325 MG (LORTAB) TAB PO PRN (15:13)
[2021-02-01 16:00] VITALS: BP 106/68
[2021-02-01 20:00] VITALS: BP 109/72
[2021-02-01] MEDS: ENOXAPARIN 40 MG/0.4 ML (LOVENOX) SYR SC SCH (20:37)
[2021-02-01] MEDS ORDERED: ZOLPIDEM 5 MG (AMBIEN) TAB PO SCH (21:00)
[2021-02-01] MEDS ORDERED: LEVOTHYROXINE 125 MCG (LEVOTHROID) TABLET PO SCH (21:00)
[2021-02-01] MEDS ORDERED: NON-FORMULARY MEDICATION 1 EA EA (Brexpiprazole (Rexulti) 2 MG) PO SCH (21:00)
[2021-02-01] MEDS ORDERED: lisINopril 5 MG (PRINIVIL) TABLET PO SCH (21:00)
[2021-02-01] MEDS ORDERED: SIMvastatin 10 MG (ZOCOR) TAB PO SCH (21:00)
[2021-02-01 23:30] VITALS: BP 111/70
[2021-02-02] MEDS: PIPERACILLIN/TAZO 4.5 GM/NS 100 ML IV SCH ×4 (00:13→09:01)
[2021-02-02 03:24] VITALS: BP 120/80
[2021-02-02 06:29] LABS: BASOPHILS # (AUTO) 0.1 10^3/uL (0.0-0.1); BASOPHILS % (AUTO) 1 % (0-10); EOSINOPHILS # (AUTO) 0.2 10^3/uL (0.0-0.3); EOSINOPHILS % (AUTO) 3 % (0-10); HEMATOCRIT 29 % (35-52); HEMOGLOBIN 9.3 g/dL (11.5-16.0); LYMPHOCYTES # (AUTO) 1.7 10^3/uL (1.0-4.0); LYMPHOCYTES % (AUTO) 22 % (12-44); MEAN CORPUSCULAR HEMOGLOBIN 29 pg (25-34); MEAN CORPUSCULAR HGB CONC 32 g/dL (32-36); MEAN CORPUSCULAR VOLUME 90 fL (80-99); MEAN PLATELET VOLUME 9.2 fL (9.0-12.2); MONOCYTES # (AUTO) 0.7 10^3/uL (0.0-1.0); MONOCYTES % (AUTO) 8 % (0-12); NEUTROPHILS # (AUTO) 5.2 10^3/uL (1.8-7.8); NEUTROPHILS % (AUTO) 66 % (42-75); PLATELET COUNT 324 10^3/uL (130-400); WHITE BLOOD COUNT 7.9 10^3/uL (4.3-11.0)
[2021-02-02 06:40] LABS: ALBUMIN 3.5 GM/DL (3.2-4.5); POTASSIUM 3.8 MMOL/L (3.6-5.0)
[2021-02-02 06:42] LABS: CALCIUM 9.1 MG/DL (8.5-10.1)
[2021-02-02 06:43] LABS: TOTAL PROTEIN 6.5 GM/DL (6.4-8.2)
[2021-02-02] MEDS: VANCOMYCIN INJECTION 1,750 MG in NS IV 500 ML 500 ML IV SCH (06:43)
[2021-02-02] MEDS: CATHETER FLUSH 10 ML SYR IV SCH (06:44)
[2021-02-02 06:45] LABS: BILIRUBIN,TOTAL 0.4 MG/DL (0.1-1.0)
[2021-02-02] MEDS: inSUlin ASPART (NovoLOG) 1 UNIT/0.01 ML (CHARGE PER UNIT) SC SCH (06:45)
[2021-02-02 06:46] LABS: CREATININE SERUM 0.77 MG/DL (0.60-1.30)
--- NOTE | 2021-02-02 07:31 | Progress Note - Surgery ---
DANISH SYKES 02/02/21 0731: Subjective Date Seen by a Provider: Feb 02, 2021 Time Seen by a Provider: 07:00 Subjective/Events-last exam Patient is doing very well this morning. She reports no more pain in her leg. Denies any nausea/vomiting, sweats/chills, palpitations or SOA. States she is ready to go home today. Focused Exam Lactate Level 01/30/21 16:50: Lactic Acid Level 1.30 Objective Exam Vital Signs Date Time Temp Pulse Resp B/P (MAP) Pulse Ox O2 Delivery O2 Flow Rate FiO2 02/02/21 03:24 36.2 62 18 120/80 (93) 96 Room Air 02/01/21 23:30 36.0 62 18 111/70 (84) 99 Room Air 02/01/21 20:28 Room Air 02/01/21 20:00 36.7 62 18 109/72 (84) 96 Room Air 02/01/21 16:00 36.7 52 20 106/68 (81) 96 Room Air 02/01/21 12:00 36.4 63 20 108/70 (83) 97 Room Air 02/01/21 08:00 36.5 68 16 122/77 (92) 98 Room Air 02/01/21 08:00 Room Air I & O 02/02/21 07:00 Intake Total 4705.0 ml Output Total 3000 ml Balance 1705.0 ml Capillary Refill : Less Than 3 Seconds General Appearance: No Apparent Distress, WD/WN HEENT: PERRL/EOMI, Pharynx Normal Neck: Full Range of Motion, Non Tender Respiratory: Chest Non Tender, No Accessory Muscle Use, No Respiratory Distress Cardiovascular: Regular Rate, Rhythm, No JVD Gastrointestinal: non tender, soft Extremity: Inflammation (less), Other (Erythema of anterior/medial part of lower right leg - improving) Neurologic/Psychiatric: Alert, Oriented x3, Normal Mood/Affect Skin: Normal Color, Warm/Dry Lymphatic: No Adenopathy Results Lab Laboratory Tests 02/01/21 11:08: Glucometer 99 02/01/21 16:43: Glucometer 101 02/01/21 20:47: Glucometer 97 02/02/21 06:10: White Blood Count 7.9, Red Blood Count 3.20L, Hemoglobin 9.3L, Hematocrit 29L, Mean Corpuscular Volume 90, Mean Corpuscular Hemoglobin 29, Mean Corpuscular Hemoglobin Concent 32, Red Cell Distribution Width 15.4H, Platelet Count 324, Mean Platelet Volume 9.2, Immature Granulocyte % (Auto) 1, Neutrophils (%) (Auto) 66, Lymphocytes (%) (Auto) 22, Monocytes (%) (Auto) 8, Eosinophils (%) (Auto) 3, Basophils (%) (Auto) 1, Neutrophils # (Auto) 5.2, Lymphocytes # (Auto) 1.7, Monocytes # (Auto) 0.7, Eosinophils # (Auto) 0.2, Basophils # (Auto) 0.1, Immature Granulocyte # (Auto) 0.0, Sodium Level 137, Potassium Level 3.8, Chloride Level 102, Carbon Dioxide Level 24, Anion Gap 11, Blood Urea Nitrogen 7, Creatinine 0.77, Estimat Glomerular Filtration Rate 81, BUN/Creatinine Ratio 9, Glucose Level 92, Calcium Level 9.1, Corrected Calcium 9.5, Total Bilirubin 0.4, Aspartate Amino Transf (AST/SGOT) 17, Alanine Aminotransferase (ALT/SGPT) 18, Alkaline Phosphatase 70, Total Protein 6.5, Albumin 3.5 Microbiology 01/30/21 Blood Culture - Preliminary, Resulted No growth Assessment/Plan Assessment/Plan Assessment/Plan RLE Cellulitis - mild and improving, failed outpatient therapy (due to inability to afford abx) Diabetes T2 Chronic low back pain continue antibiotics, right lower ext continues to improve. US revealed no signs of DVT. nothing to do surgically at this time likely home today NATALIE VIRAMONTES 02/02/21 1502: DANISH SYKES Feb 02, 2021 07:31 NATALIE VIRAMONTES Feb 02, 2021 15:02
[2021-02-02 08:00] VITALS: BP 116/73
[2021-02-02] MEDS: NICOTINE PATCH REMOVAL TP SCH (08:59)
[2021-02-02] MEDS: busPIRone 15 MG (BUSPAR) TABLET PO SCH (09:00)
[2021-02-02] MEDS: metFORMIN XR 500 MG (GLUCOPHAGE XR) TAB PO SCH (09:00)
[2021-02-02] MEDS: NICOTINE 21 MG (NICODERM) PATCH TD SCH (09:00)
[2021-02-02] MEDS: polyethylene glycoL POWDER 17 GM (MIRALAX) PACK PO SCH (09:01)
[2021-02-02] MEDS: SENNA W/DOCUSATE (SENOKOT S) TABLET PO SCH (09:01)
[2021-02-02] MEDS ORDERED: AMOX-358 PO (11:15)
--- NOTE | 2021-02-02 11:15 | Discharge Summary ---
Discharge Summary Hospital Course Was the Problem List Reviewed?: Yes Problems/Dx: (1) Cellulitis of right lower extremity without foot Status: Acute (2) Non-insulin dependent diabetes mellitus Status: Acute Hospital Course Date of Admission: Jan 30, 2021 at 17:40 Admission Diagnosis : [facility] of [facility]charge: 02/02/21 Discharge Diagnosis: Right lower extremity cellulitis failed oral antibiotics Hospital Course: BOB SEYMOUR 02/02/21 1238: Mee Freeman is a 45yo female with a past medical history of diabetes asthma, COPD, ALIS, HTN, who was admitted 01/31 for right leg cellulitis. On 01/27 patient reported fever (101.2), nause and vomiting. On 01/28 she noticed pain and swelling in her right leg, and subsequently went to the ER. She was discharged later that day and prescribed Omnicef, which the patient could not afford. She returned to the ER 01/31 for increased pain and swelling, and subsequently admitted inpatient. Admission labs were significant for elevated ESR 76, CRP 8, D-dimer 0.65. No SIRS criteria were met. Doppler US was negative for DVT. Surgery was consulted, but no intervention was indicated. She was started on vancomycin and zosyn. By 02/02 her leg had drastically improved and the pain resolved. She felt at her baseline. On 02/02 Ms. Freeman was discharged home with Augmentin. She had no questions nor concerns, and was satisfied with her care. Labs and Pending Lab Test: Laboratory Tests 02/01/21 16:43: Glucometer 101 02/01/21 20:47: Glucometer 97 02/02/21 06:10: White Blood Count 7.9, Red Blood Count 3.20L, Hemoglobin 9.3L, Hematocrit 29L, Mean Corpuscular Volume 90, Mean Corpuscular Hemoglobin 29, Mean Corpuscular Hemoglobin Concent 32, Red Cell Distribution Width 15.4H, Platelet Count 324, Mean Platelet Volume 9.2, Immature Granulocyte % (Auto) 1, Neutrophils (%) (Auto) 66, Lymphocytes (%) (Auto) 22, Monocytes (%) (Auto) 8, Eosinophils (%) (Auto) 3, Basophils (%) (Auto) 1, Neutrophils # (Auto) 5.2, Lymphocytes # (Auto) 1.7, Monocytes # (Auto) 0.7, Eosinophils # (Auto) 0.2, Basophils # (Auto) 0.1, Immature Granulocyte # (Auto) 0.0, Sodium Level 137, Potassium Level 3.8, Chloride Level 102, Carbon Dioxide Level 24, Anion Gap 11, Blood Urea Nitrogen 7, Creatinine 0.77, Estimat Glomerular Filtration Rate 81, BUN/Creatinine Ratio 9, Glucose Level 92, Calcium Level 9.1, Corrected Calcium 9.5, Total Bilirubin 0.4, Aspartate Amino Transf (AST/SGOT) 17, Alanine Aminotransferase (ALT/SGPT) 18, Alkaline Phosphatase 70, Total Protein 6.5, Albumin 3.5 Microbiology 01/30/21 Blood Culture - Preliminary, Resulted No growth Home Meds Active Augmentin 875-125 Tablet (Amoxicillin/Potassium Clav) 1 Each Tablet 1 Each PO BID Reported Buspirone HCl 30 Mg Tablet 30 Mg PO BID Ibuprofen 200 Mg Tablet 400-600 Mg PO Q8H PRN Levothyroxine Sodium 125 Mcg Tablet 125 Mcg PO HS Lisinopril 2.5 Mg Tablet 2.5 Mg PO HS Lovastatin 20 Mg Tablet 20 Mg PO HS Nabumetone 500 Mg Tablet 500 Mg PO BID Escitalopram Oxalate 20 Mg Tablet 20 Mg PO HS Lunesta (Eszopiclone) 2 Mg Tablet 2 Mg PO HS Proair Hfa (Albuterol Sulfate) 1 Puff Puff 2 Puff IH Q4H PRN Metformin HCl ER (Metformin HCl) 500 Mg Tab.er.24h 500 Mg PO BID Rexulti (Brexpiprazole) 2 Mg Tablet 2 Mg PO HS LAST FILLED 08-28-2020 #90/90 DAY SUPPLY Tizanidine HCl 4 Mg Tablet 4 Tab PO TID Assessment/Pt Instructions PCP in 1 week Discharge Planning: <30 minutes discharge planning Discharge Instructions Discharge Diet: No Restrictions Discharge Physical Examination Vital Signs Vital Signs Date Time Temp Pulse Resp B/P (MAP) Pulse Ox O2 Delivery O2 Flow Rate FiO2 02/02/21 10:23 90 Room Air 02/02/21 08:00 36.4 57 20 116/73 (87) General Appearance: No Apparent Distress, WD/WN Skin: Rash (Nearly resolved right lower extremity cellulitis) Allergies: Coded Allergies: methocarbamol (Unverified Allergy, Unknown, 03/02/20) fentanyl (Verified Adverse Reaction, Unknown, 03/02/20) Discharge Summary Date of Admission Jan 30, 2021 at 17:40 Date of Discharge Discharge Date: Feb 02, 2021 Admission Diagnosis Assessment: Right leg cellulitis failed p.o. medication Obesity Seizure disorder Hypertension Plan: Antibiotics Lovenox Discharge Diagnosis 1 more day of IV antibiotics (1) Cellulitis of right lower extremity without foot Status: Acute (2) Non-insulin dependent diabetes mellitus Status: Acute LARON CHRISTOPHER DO Feb 02, 2021 11:15
[2021-02-02 12:38] VITALS: BP 116/73
--- NOTE | 2021-02-02 12:38 | Progress Note ---
BOB SEYMOUR 02/02/21 1238: Progress Note Mee Freeman is a 45yo female with a past medical history of diabetes asthma, COPD, ALIS, HTN, who was admitted 01/31 for right leg cellulitis. On 01/27 patient reported fever (101.2), nause and vomiting. On 01/28 she noticed pain and swelling in her right leg, and subsequently went to the ER. She was discharged later that day and prescribed Omnicef, which the patient could not afford. She returned to the ER 01/31 for increased pain and swelling, and subsequently admitted inpatient. Admission labs were significant for elevated ESR 76, CRP 8, D-dimer 0.65. No SIRS criteria were met. Doppler US was negative for DVT. Surgery was consulted, but no intervention was indicated. She was started on vancomycin and zosyn. By 02/02 her leg had drastically improved and the pain resolved. She felt at her baseline. On 02/02 Ms. Freeman was discharged home with Augmentin. She had no questions nor concerns, and was satisfied with her care. ASHA CHRISTOPHER DO 02/03/21 0619: Supervisory-Addendum Brief Verification & Attestation Participated in pt care: history, MDM, physical Personally performed: exam, history, MDM, supervision of care Care discussed with: Medical Student Procedures: n/a Results interpretation: Verified all documentation Verification and Attestation of Medical Student E/M Service A medical student performed and documented this service in my presence. I reviewed and verified all information documented by the medical student and made modifications to such information, when appropriate. I personally performed the physical exam and medical decision making. Asha Christohper, Feb 03, 2021,06:19 BOB SEYMOUR Feb 02, 2021 12:38 ASHA CHRISTOPHER DO Feb 03, 2021 06:19
== END 2021-02-02 12:37 | disposition home or self-care (01) | DRG 603 ==
LOC: EDUNIT# 16:34 → ER 16:36 → 4TH 17:40
PROVIDERS: ADMIT Internal Medicine; ATTEND Internal Medicine
DX: L03.115 Cellulitis of right lower limb (principal); E11.9 Type 2 diabetes mellitus without complications; G40.909 Epilepsy, unspecified, not intractable, without status epilepticus; J44.9 Chronic obstructive pulmonary disease, unspecified; G47.33 Obstructive sleep apnea (adult) (pediatric); I10 Essential (primary) hypertension; E66.9 Obesity, unspecified; M54.5 Low back pain; F17.210 Nicotine dependence, cigarettes, uncomplicated; E78.00 Pure hypercholesterolemia, unspecified; K21.9 Gastro-esophageal reflux disease without esophagitis; F41.9 Anxiety disorder, unspecified; F32.9 Major depressive disorder, single episode, unspecified; Z79.84 Long term (current) use of oral hypoglycemic drugs; Z79.899 Other long term (current) drug therapy; Z88.5 Allergy status to narcotic agent; Z88.8 Allergy status to other drugs, medicaments and biological substances; Z79.890 Hormone replacement therapy; Z86.16 Personal history of COVID-19; Z86.14 Personal history of Methicillin resistant Staphylococcus aureus infection; Z91.19 Patient's noncompliance with other medical treatment and regimen; Z68.36 Body mass index [BMI] 36.0-36.9, adult
CPT/HCPCS: 36415; 80053; 80202; 80306; 81000; 82947; 83605; 83735; 84145; 84703; 85025; 85379; 85610; 85652; 85730; 86141; 87040; 93041; 94760; 96374; 96375

== ENCOUNTER 2021-11-03 04:06 | Emergency (ER) | payer SELFPAY ==
[~2021-11-03] VITALS: Ht 175.3 cm; Wt 103.4 kg
[~2021-11-03 04:06] MED LIST changes: +ACET-11; -ACET1TAB43; +BUSP30TA2 PO; +ESCI20TA39 PO; +ESZO2TAB4 PO; +IBUP-2473 PO; +LEVO125T6 PO; -LEVO500T80 PO; +LEVO500T81 PO; +TIZA-186 PO; -TIZA4TAB4 PO
[2021-11-03 04:15] VITALS: BP 109/70
[2021-11-03] MEDS ORDERED: AUGMENTIN 875 MG TAB (AMOXICILLIN/CLAVULANATE) PO STA (04:27)
[2021-11-03] MEDS ORDERED: TETANUS,DIPTH,PERTUSS P/F (BOOSTRIX) 0.5 ML VIAL IM ONE (04:30)
[2021-11-03] MEDS ORDERED: AMOX-358 PO (04:39)
--- NOTE | 2021-11-03 04:39 | ED Integumentary General ---
General Chief Complaint: Bite-Animal/Human/Insect Stated Complaint: L HAND DOG BITE Source: patient Exam Limitations: no limitations History of Present Illness Date Seen by Provider: Nov 03, 2021 Time Seen by Provider: 04:15 Initial Comments Patient is a 45-year-old female who presents to the emergency department with a chief complaint of wound to her left index finger after trying to separate her to [employer] dogs while they were fighting. Patient states both dogs are up-to-date on rabies vaccinations. She cannot recall her last tetanus shot. She has not cleaned the wound since the time of the injury. She complains of little numbness to the finger and decreased range of motion secondary to swelling All other review of systems reviewed and negative except as stated. Timing/Duration: this morning Severity: moderate Location: hands Possible Cause: other (Dog bite) Associated Symptoms: denies symptoms Allergies and Home Medications Allergies Coded Allergies: methocarbamol (Unverified Allergy, Unknown, 03/02/20) fentanyl (Verified Adverse Reaction, Unknown, 03/02/20) Patient Home Medication List Home Medication List Reviewed: Yes Albuterol Sulfate (Proair Hfa) 1 Puff Puff, 2 PUFF IH Q4H PRN for SHORTNESS OF BREATH, (Reported) Entered as Reported by: SUHA OLIVER on 01/31/21 1325 Amoxicillin/Potassium Clav (Augmentin 875-125 Tablet) 1 Each Tablet, 1 EACH PO BID Prescribed by: LARON CHRISTOPHER on 02/02/21 1115 Brexpiprazole (Rexulti) 2 Mg Tablet, 2 MG PO HS, (Reported) Entered as Reported by: JOSE R JAMES on 05/10/17 2105 Buspirone HCl (Buspirone HCl) 30 Mg Tablet, 30 MG PO BID, (Reported) Entered as Reported by: SUHA OLIVER on 01/31/21 1334 Escitalopram Oxalate (Escitalopram Oxalate) 20 Mg Tablet, 20 MG PO HS, (Reported) Entered as Reported by: SUHA OLIVER on 01/31/21 1325 Eszopiclone (Lunesta) 2 Mg Tablet, 2 MG PO HS, (Reported) Entered as Reported by: SUHA OLIVER on 01/31/21 1325 Ibuprofen (Ibuprofen) 200 Mg Tablet, 400-600 MG PO Q8H PRN for PAIN-MILD (1-4), (Reported) Entered as Reported by: SUHA OLIVER on 01/31/21 1325 Levothyroxine Sodium (Levothyroxine Sodium) 125 Mcg Tablet, 125 MCG PO HS, (Reported) Entered as Reported by: SUHA OLIVER on 01/31/21 1325 Lisinopril (Lisinopril) 2.5 Mg Tablet, 2.5 MG PO HS, (Reported) Entered as Reported by: SHUA OLIVER on 01/31/21 1325 Lovastatin (Lovastatin) 20 Mg Tablet, 20 MG PO HS, (Reported) Entered as Reported by: SUHA OLIVER on 01/31/21 1325 Metformin HCl (Metformin HCl ER) 500 Mg Tab.er.24h, 500 MG PO BID, (Reported) Entered as Reported by: JOSE R JAMES on 05/10/172104 Nabumetone (Nabumetone) 500 Mg Tablet, 500 MG PO BID, (Reported) Entered as Reported by: SUHA OLIVER on 01/31/21 132 Tizanidine HCl (Tizanidine HCl) 4 Mg Tablet, 4 TAB PO TID, (Reported) Entered as Reported by: JOSE R JAMES on 12/25/15 2247 Review of Systems Review of Systems Constitutional: see HPI Respiratory: no symptoms reported Cardiovascular: no symptoms reported Gastrointestinal: no symptoms reported Skin: other (Wound left index finger) Past Uqlzcrw-Ohecgg-Cbyhpm Hx Patient Social History Tobacco Use?: Yes Tobacco type used: Cigarettes Smoking Status: Current Everyday Smoker Smokeless Tobacco Frequency: Never a User Use of E-Cig and/or Vaping dev: No Use of E-Cig and/or Vaping Jean: Never a User Substance use?: Yes Substance type: Marijuana Substance frequency: Daily Alcohol Use?: No Pt feels they are or have been: No Immunizations Up To Date Tetanus Booster (TDap): Unknown Influenza Vaccine Up-to-Date: No; Not Current First/Initial COVID19 Vaccinat: 2020 Second COVID19 Vaccination Joshua: 2020 COVID19 Vaccine Greige Goods Marker: hubert Seasonal Allergies Seasonal Allergies: No Past Medical History Surgery/Hospitalization HX: no pertinent or within last year Surgeries: Yes (SEE BELOW) Gallbladder, Hysterectomy, Oophorectomy, Orthopedic, Tracheostomy Respiratory: Yes (R LUNG BX;BILAT CHEST TUBES-PNEUMONIA W/VENT W/ TRACH 1995;O2 AT 2L/NC ) Asthma, Pneumonia, Chronic Bronchitis, Sleep Apnea, COPD Currently Using CPAP: No Currently Using BIPAP: No Cardiac: Yes High Cholesterol, Hypertension Neurological: Yes (lumbar neural foraminal stenosis) Headaches /Migraines, Seizure Disorder Reproductive Disorders: Yes [employer] History: Hysterectomy, 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 No Pertinent Family Hx SOCIAL HISTORY: -SMOKES 1 PPD -ETOH--OCCASIONAL USE -DRUGS-DAILY MARIJUANA USE PSH: -RIGHT ARM FX/ORIF--RODS/SCREWS -BILATERAL CHEST TUBES AND TRACHEOSTOMY FOR PNEUMONIA -RIGHT LUNG BIOPSY -DENTAL SURGERY -SPINAL CORD STIMULATOR 2015 -HYSTERECTOMY/LEFT SALPINGO-OOPHORECTOMY -CHOLECYSTECTOMY -COLONOSCOPY 09/2015-NORMAL Physical Exam Vital Signs Capillary Refill : General Appearance: WD/WN, no apparent distress Cardiovascular: regular rate, rhythm Respiratory: no respiratory distress, no accessory muscle use Extremities: swelling, other (Decreased range of motion left index finger secondary to swelling) Skin: warm/dry, other (1/2 cm puncture/laceration to the lateral aspect of the proximal left index finger, no active bleeding) Progress/Results/Core Measures Results/Orders My Orders Orders - MYRA DONATO MD Amoxicillin/Clavulanate Tablet (Augmenti (11/03/21 04:27) Dipht,Pertuss(Acell),Tet Adult (Boostrix (11/03/21 04:30) Progress Progress Note : Time: 04:35 Progress Note Wound was anesthetized with approximately 1.5 cc of 1% plain lidocaine directly infiltrated into the wound. Wound was cleansed thoroughly with Betasept and saline. Clean dressing was applied. Patient was counseled on wound care management, she was given her first dose of Augmentin here in the department and a prescription was sent to apothecary on [address] for a total of 5 days. Tetanus shot was updated. Return precautions discussed Departure Impression Primary Impression: Dog bite of finger Qualified Codes: S61.259A - Open bite of unspecified finger without damage to nail, initial encounter; W54.0XXA - Bitten by dog, initial encounter Disposition: 01 HOME, SELF-CARE Condition: Stable Departure-Patient Inst. Decision time for Depature: 04:37 Referrals: [facility] (PCP/Family) Primary Care Physician Patient Instructions: Animal Bites (DC) Add. Discharge Instructions: Fingers can get infected rather quickly from dog bites. It is very important that you take Augmentin twice daily for a total of 5 days. Especially because you are a diabetic. Watch the wound closely for signs of infection such as increased redness, swelling, drainage of pus and fever. Return to the emergency department if any of the symptoms occur. [id number] Tylenol and or ibuprofen as needed for pain. Follow-up with [facility]. Scripts Amoxicillin/Potassium Clav (Augmentin 875-125 Tablet) 1 Each Tablet 1 EACH PO BID for 5 Days, #9 TAB Prov: MYRA DONATO MD 11/03/21 MYRA DONATO MD Nov 03, 2021 04:39
== END 2021-11-03 05:00 | disposition home or self-care (01) ==
LOC: EDUNIT# 04:06 → ER 04:09
DX: S61.211A Laceration without foreign body of left index finger without damage to nail, initial encounter (principal); F17.210 Nicotine dependence, cigarettes, uncomplicated; Z23 Encounter for immunization; W54.0XXA Bitten by dog, initial encounter
CPT/HCPCS: 90715; 99284

== ENCOUNTER 2021-11-28 21:23 | Emergency (ER) | payer SELFPAY ==
[~2021-11-28] VITALS: Ht 175 cm; Wt 100.0 kg
--- NOTE | 2021-11-28 21:44 | ED GI ---
General Chief Complaint: Abdominal/GI Problems Stated Complaint: ABDOMINAL PAIN Source of Information: Patient Exam Limitations: No Limitations (GAIL BAGLEY) History of Present Illness Date Seen by Provider: Nov 28, 2021 Time Seen by Provider: 21:42 Initial Comments Patient is a 45-year-old female presents ED with right-sided abdominal pain. Pain has been ongoing for the past month. Pain became more frequent yesterday and noted a sharp turning stabbing pain every hour. Pain became constant today. Denies nausea, vomiting, diarrhea. History of cholecystectomy and hysterectomy. Denies any urinary symptoms, fever, chills, chest pain, shortness of breath. Has been taking ibuprofen without much improvement of the pain. She reports normal bowel movements. Denies of any dark tarry stool. Pain is not associated with eating. (GAIL BAGLEY) Allergies and Home Medications Allergies Coded Allergies: methocarbamol (Unverified Allergy, Unknown, 03/02/20) fentanyl (Verified Adverse Reaction, Unknown, 03/02/20) Patient Home Medication List Home Medication List Reviewed: Yes (GAIL BAGLEY) Albuterol Sulfate (Proair Hfa) 1 Puff Puff, 2 PUFF IH Q4H PRN for SHORTNESS OF BREATH, (Reported) Entered as Reported by: SUHA OLIVER on 01/31/21 1325 Amoxicillin/Potassium Clav (Augmentin 875-125 Tablet) 1 Each Tablet, 1 EACH PO BID Prescribed by: LARON CHRISTOPHER on 02/02/21 1115 Amoxicillin/Potassium Clav (Augmentin 875-125 Tablet) 1 Each Tablet, 1 EACH PO BID Prescribed by: MYRA DONATO on 11/03/21 0439 Brexpiprazole (Rexulti) 2 Mg Tablet, 2 MG PO HS, (Reported) Entered as Reported by: JOSE R JAMES on 05/10/17 2105 Buspirone HCl (Buspirone HCl) 30 Mg Tablet, 30 MG PO BID, (Reported) Entered as Reported by: SUHA OLIVER on 01/31/21 1334 Cephalexin (Cephalexin) 500 Mg Tablet, 500 MG PO BID Prescribed by: SELENA STERN on 11/28/21 2243 Dicyclomine HCl (Dicyclomine HCl) 20 Mg Tablet, 20 MG PO QID Prescribed by: SELENA STERN on 11/28/212242 Escitalopram Oxalate (Escitalopram Oxalate) 20 Mg Tablet, 20 MG PO HS, (Reported) Entered as Reported by: SUHA OLIVER on 01/31/21 132 Eszopiclone (Lunesta) 2 Mg Tablet, 2 MG PO HS, (Reported) Entered as Reported by: SUHA OLIVER on 01/31/21 1325 Ibuprofen (Ibuprofen) 200 Mg Tablet, 400-600 MG PO Q8H PRN for PAIN-MILD (1-4), (Reported) Entered as Reported by: SUHA OLIVER on 01/31/21 1325 Levothyroxine Sodium (Levothyroxine Sodium) 125 Mcg Tablet, 125 MCG PO HS, (Reported) Entered as Reported by: SUHA OLIVER on 01/31/21 1325 Lisinopril (Lisinopril) 2.5 Mg Tablet, 2.5 MG PO HS, (Reported) Entered as Reported by: SUHA OLIVER on 01/31/21 1325 Lovastatin (Lovastatin) 20 Mg Tablet, 20 MG PO HS, (Reported) Entered as Reported by: SUHA OLIVER on 01/31/21 1325 Metformin HCl (Metformin HCl ER) 500 Mg Tab.er.24h, 500 MG PO BID, (Reported) Entered as Reported by: JOSE R JAMES on 05/10/172104 Nabumetone (Nabumetone) 500 Mg Tablet, 500 MG PO BID, (Reported) Entered as Reported by: SUHA OLIVER on 01/31/21 132 Tizanidine HCl (Tizanidine HCl) 4 Mg Tablet, 4 TAB PO TID, (Reported) Entered as Reported by: JOSE R JAMES on 12/25/152246 Discontinued Medications Cephalexin (Cephalexin) 500 Mg Tablet, 500 MG PO BID Prescribed by: SELENA STERN on 11/28/212238 Dicyclomine HCl (Dicyclomine HCl) 20 Mg Tablet, 20 MG PO QID Prescribed by: SELENA STERN on 11/28/212238 Review of Systems Review of Systems Constitutional: No chills, No diaphoresis, No malaise, No weakness Respiratory: Denies Cough, Denies SOA With Exertion Cardiovascular: Denies Chest Pain, Denies Edema Gastrointestinal: Abdominal Pain; Denies Diarrhea, Denies Difficulty Swallowing , Denies Vomiting Genitourinary: Denies Burning, Denies Discharge Musculoskeletal: No back pain, No joint pain Psychiatric/Neurological: Denies Anxiety (GAIL BAGLEY) All Other Systems Reviewed Negative Unless Noted: Yes (GAIL BAGLEY) Past Lxykwkd-Cfaoql-Uaxaza Hx Patient Social History Tobacco Use?: Yes Tobacco type used: Cigarettes Smoking Status: Current Everyday Smoker Use of E-Cig and/or Vaping dev: No Substance use?: Yes Substance type: Marijuana Substance frequency: Daily Alcohol Use?: No Pt feels they are or have been: No (GAIL BAGLEY) Immunizations Up To Date Tetanus Booster (TDap): Unknown Influenza Vaccine Up-to-Date: No; Not Current First/Initial COVID19 Vaccinat: 2020 Second COVID19 Vaccination Joshua: 2020 COVID19 Vaccine Stroke Belt 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 Operator: ANTOINETTE (GAIL BAGLEY) Seasonal Allergies Seasonal Allergies: No (GAIL BAGLEY) Past Medical History Surgery/Hospitalization HX: COPD HYSTERECTOMY Surgeries: Yes (SEE BELOW) Gallbladder, Hysterectomy, Oophorectomy, Orthopedic, Tracheostomy Respiratory: Yes (R LUNG BX;BILAT CHEST TUBES-PNEUMONIA W/VENT W/ TRACH 1995;O2 AT 2L/NC ) Asthma, Pneumonia, Chronic Bronchitis, Sleep Apnea, COPD Currently Using CPAP: No Currently Using BIPAP: No Cardiac: Yes High Cholesterol, Hypertension Neurological: Yes (lumbar neural foraminal stenosis) Headaches /Migraines, Seizure Disorder 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 No Pertinent Family Hx SOCIAL HISTORY: -SMOKES 1 PPD -ETOH--OCCASIONAL USE -DRUGS-DAILY MARIJUANA USE PSH: -RIGHT ARM FX/ORIF--RODS/SCREWS -BILATERAL CHEST TUBES AND TRACHEOSTOMY FOR PNEUMONIA -RIGHT LUNG BIOPSY -DENTAL SURGERY -SPINAL CORD STIMULATOR 2015 -HYSTERECTOMY/LEFT SALPINGO-OOPHORECTOMY -CHOLECYSTECTOMY -COLONOSCOPY 09/2015-NORMAL (GIAL BAGLEY) Physical Exam Vital Signs Vital Signs - First Documented 11/28/21 21:29 Temp 35.9 Pulse 67 Resp 18 B/P (MAP) 122/67 (85) Pulse Ox 96 O2 Delivery Room Air (EFRAIN CRUZ MD) Vital Signs Capillary Refill : (GAIL BAGLEY) Height/Weight/BMI Height: 5'9.00" Weight: 247lbs. 0.0oz. 112.077692ma; 33.00 BMI Method:Actual General Appearance: WD/WN, no apparent distress HEENT: PERRL/EOMI, normal ENT inspection, TMs normal, pharynx normal Neck: non-tender, full range of motion, supple Respiratory: chest non-tender, lungs clear, normal breath sounds, no respiratory distress, no accessory muscle use Cardiovascular: regular rate, rhythm, no edema, no gallop Gastrointestinal: normal bowel sounds, soft, no organomegaly, tenderness (right sided abd tenderness) Extremities: normal range of motion, non-tender, normal inspection, no pedal edema, no calf tenderness Back: normal inspection, no CVA tenderness, no vertebral tenderness Neurologic/Psychiatric: foam molder II-XII nml as tested, no motor/sensory deficits, alert, normal mood/affect, oriented x 3 Skin: normal color, warm/dry (GAIL BAGLEY) Progress/Results/Core Measures Results/Orders Lab Results Laboratory Tests Test 11/28/21 21:45 11/28/21 21:53 Range/Units Urine Color ORANGE Urine Clarity CLOUDY Urine pH 6.0 5-9 Urine Specific [place] >=1.030 1.016-1.022 Urine Protein NEGATIVE NEGATIVE Urine Glucose (UA) NEGATIVE NEGATIVE Urine Ketones NEGATIVE NEGATIVE Urine Nitrite NEGATIVE NEGATIVE Urine Bilirubin 1+ H NEGATIVE Urine Urobilinogen 1.0 < = 1.0 MG/DL Urine Leukocyte Esterase TRACE H NEGATIVE Urine RBC (Auto) NEGATIVE NEGATIVE Urine RBC NONE /HPF Urine WBC 5-10 H /HPF Urine Squamous Epithelial Cells 5-10 /HPF Urine Crystals NONE /LPF Urine Bacteria FEW H /HPF Urine Casts NONE /LPF Urine Mucus LARGE H /LPF Urine Culture Indicated YES Urine Test NEGATIVE NEGATIVE White Blood Count 11.2 H 4.3-11.0 10^3/uL Red Blood Count 3.82 3.80-5.11 10^6/uL Hemoglobin 11.5 11.5-16.0 g/dL Hematocrit 34 L 35-52 % Mean Corpuscular Volume 90 80-99 fL Mean Corpuscular Hemoglobin 30 25-34 pg Mean Corpuscular Hemoglobin Concent 33 32-36 g/dL Red Cell Distribution Width 14.5 10.0-14.5 % Platelet Count 385 130-400 10^3/uL Mean Platelet Volume 9.1 9.0-12.2 fL Immature Granulocyte % (Auto) 0 % Neutrophils (%) (Auto) 57 42-75 % Lymphocytes (%) (Auto) 34 12-44 % Monocytes (%) (Auto) 6 0-12 % Eosinophils (%) (Auto) 2 0-10 % Basophils (%) (Auto) 1 0-10 % Neutrophils # (Auto) 6.4 1.8-7.8 10^3/uL Lymphocytes # (Auto) 3.8 1.0-4.0 10^3/uL Monocytes # (Auto) 0.7 0.0-1.0 10^3/uL Eosinophils # (Auto) 0.2 0.0-0.3 10^3/uL Basophils # (Auto) 0.1 0.0-0.1 10^3/uL Immature Granulocyte # (Auto) 0.0 0.0-0.1 10^3/uL Sodium Level 137 135-145 MMOL/L Potassium Level 3.6 3.6-5.0 MMOL/L Chloride Level 103 98-107 MMOL/L Carbon Dioxide Level 22 21-32 MMOL/L Anion Gap 12 5-14 MMOL/L Blood Urea Nitrogen 8 7-18 MG/DL Creatinine 0.74 0.60-1.30 MG/DL Estimat Glomerular Filtration Rate 102 BUN/Creatinine Ratio 11 Glucose Level 96 70-105 MG/DL Calcium Level 9.2 8.5-10.1 MG/DL Corrected Calcium 9.0 8.5-10.1 MG/DL Total Bilirubin 0.6 0.1-1.0 MG/DL Aspartate Amino Transf (AST/SGOT) 19 5-34 U/L Alanine Aminotransferase (ALT/SGPT) 23 0-55 U/L Alkaline Phosphatase 83 40-136 U/L Total Protein 7.6 6.4-8.2 GM/DL Albumin 4.3 3.2-4.5 GM/DL Lipase 41 8-78 U/L (EFRAIN CRUZ MD) Medications Given in ED Current Medications Medications Dose Ordered Sig/Bridgette Route Start Time Stop Time Status Last Admin Dose Admin Ketorolac Tromethamine 30 mg ONCE ONCE IM 11/28/21 21:45 11/28/21 21:46 DC 11/28/21 22:04 30 MG (EFRAIN CRUZ MD) Vital Signs/I&O 11/28/21 21:29 Temp 35.9 Pulse 67 Resp 18 B/P (MAP) 122/67 (85) Pulse Ox 96 O2 Delivery Room Air (EFRAIN CRUZ MD) Departure Communication (PCP) Patient lab work shows slight elevated white blood count 11.2. She has had this continues pain over the past month worse for the past few days. No nausea, vomit, diarrhea. Afebrile. She has no right lower quadrant tenderness. History of cholecystectomy. Normal liver enzymes, pancreatic enzymes, kidney function. Abdominal x-ray negative for obstruction. phleboliths noted in the pelvic. Her pain appears to be more mid upper right-sided abdomen. Patient has no chest pain, shortness of breath or cough. Urinalysis was concerning for UTI. Will discharge with Keflex. Was given Toradol with improvement of pain. No evidence of nephrolithiasis noted. Patient does not appear in severe pain. Due to the length of symptoms with reassuring lab work with no peritoneal signs. Patient will be discharged with strict follow-up with primary care physician. If worsening pain may be reasonable to follow-up with primary care physician to discuss further imaging such as CT scan or return back to the ED. (GAIL BAGLEY) Impression Primary Impression: Abdominal pain Disposition: 01 HOME, SELF-CARE Condition: Stable Departure-Patient Inst. Decision time for Depature: 22:22 (GAIL BAGLEY) Referrals: [facility] (PCP/Family) Primary Care Physician Patient Instructions: Abdominal Pain, Adult ED Scripts Cephalexin (Cephalexin) 500 Mg Tablet 500 MG PO BID for 7 Days, #14 TAB Prov: GAIL BAGLEY 11/28/21 Dicyclomine HCl (Dicyclomine HCl) 20 Mg Tablet 20 MG PO QID, #16 TAB Prov: GAIL BAGLEY 11/28/21 PHYSICIAN ATTESTATION NOTE: I was present in the ER while STILL OPERATOR HELPER / PA saw the patient, but I was not involved in the care, exam, or management of the patient. (EFRAIN CRUZ MD) GAIL BAGLEY Nov 28, 2021 21:44 EFRAIN RCUZ MD Nov 28, 2021 23:18
[2021-11-28] MEDS ORDERED: KETOROLAC 30 MG/ML VIAL IM ONE (21:45)
[2021-11-28 22:01] LABS: CLARITY,URINE CLOUDY; COLOR,URINE ORANGE; GLUCOSE, URINE (UA) NEGATIVE (NEGATIVE); KETONES,URINE NEGATIVE (NEGATIVE); LEUKOCYTE ESTERASE ,URINE TRACE (NEGATIVE); NITRITE,URINE NEGATIVE (NEGATIVE); PROTEIN,URINE NEGATIVE (NEGATIVE)
[2021-11-28 22:01] LABS: BASOPHILS # (AUTO) 0.1 10^3/uL (0.0-0.1); BASOPHILS % (AUTO) 1 % (0-10); EOSINOPHILS # (AUTO) 0.2 10^3/uL (0.0-0.3); EOSINOPHILS % (AUTO) 2 % (0-10); HEMATOCRIT 34 % (35-52); HEMOGLOBIN 11.5 g/dL (11.5-16.0); LYMPHOCYTES # (AUTO) 3.8 10^3/uL (1.0-4.0); LYMPHOCYTES % (AUTO) 34 % (12-44); MEAN CORPUSCULAR HEMOGLOBIN 30 pg (25-34); MEAN CORPUSCULAR HGB CONC 33 g/dL (32-36); MEAN CORPUSCULAR VOLUME 90 fL (80-99); MEAN PLATELET VOLUME 9.1 fL (9.0-12.2); MONOCYTES # (AUTO) 0.7 10^3/uL (0.0-1.0); MONOCYTES % (AUTO) 6 % (0-12); NEUTROPHILS # (AUTO) 6.4 10^3/uL (1.8-7.8); NEUTROPHILS % (AUTO) 57 % (42-75); PLATELET COUNT 385 10^3/uL (130-400); WHITE BLOOD COUNT 11.2 10^3/uL (4.3-11.0)
[2021-11-28 22:13] LABS: ALBUMIN 4.3 GM/DL (3.2-4.5)
[2021-11-28 22:14] LABS: POTASSIUM 3.6 MMOL/L (3.6-5.0)
[2021-11-28 22:15] LABS: CALCIUM 9.2 MG/DL (8.5-10.1)
[2021-11-28 22:16] LABS: TOTAL PROTEIN 7.6 GM/DL (6.4-8.2)
[2021-11-28 22:18] LABS: BILIRUBIN,TOTAL 0.6 MG/DL (0.1-1.0)
[2021-11-28 22:20] LABS: CREATININE SERUM 0.74 MG/DL (0.60-1.30)
[2021-11-28 22:21] LABS: BACTERIA,URINE FEW /HPF; BILIRUBIN,URINE 1+ (NEGATIVE)
--- NOTE | 2021-11-28 22:29 | Diagnostic Imaging Report ---
Indication: Pain. Findings: Bowel gas pattern normal. No abnormal fecal loading. There are clips at the gallbladder fossa. There are pelvic phleboliths noted. No suspicious calcifications. Impression: No acute-appearing abnormality. Dictated by: Dictated on workstation # [id number]
[2021-11-28] MEDS ORDERED: CEPH500T PO ×2 (22:39→22:43)
[2021-11-28] MEDS ORDERED: DICY20TA PO ×2 (22:39→22:43)
[2021-11-28 22:50] VITALS: BP 123/65
== END 2021-11-28 22:50 | disposition home or self-care (01) ==
LOC: EDUNIT# 21:23 → ER 21:25
DX: R10.31 Right lower quadrant pain (principal); D72.829 Elevated white blood cell count, unspecified; E66.9 Obesity, unspecified; Z68.33 Body mass index [BMI] 33.0-33.9, adult; Z87.19 Personal history of other diseases of the digestive system; Z90.710 Acquired absence of both cervix and uterus; Z90.722 Acquired absence of ovaries, bilateral; Z32.02 Encounter for pregnancy test, result negative
CPT/HCPCS: 36415; 74018; 80053; 81000; 83690; 84703; 85025; 85027; 87088

== ENCOUNTER 2021-12-26 20:31 | Emergency (ER) | payer SELFPAY ==
[~2021-12-26] VITALS: Ht 175.2 cm; Wt 99.6 kg
[~2021-12-26 20:31] MED LIST changes: +CEPH500T PO; +DICY20TA PO
--- NOTE | 2021-12-26 20:51 | ED Back Pain ---
General Stated Complaint: BACK PAIN, LEG NUMBNESS Source of Information: Patient Exam Limitations: No Limitations History of Present Illness Date Seen by Provider: Dec 26, 2021 Time Seen by Provider: 20:49 Initial Comments Patient is a 46-year-old female who presents the ED low back pain with numbness and tingling bilateral lower legs. Patient states she has a history of low back pain. This pain became worse over the past hour. Sharp shooting pain radiating bilateral lower extremities. Pain is constant. She does take ibuprofen and a muscle relaxer daily. She states she has a history of spinal stenosis. She is scheduled for MRI next Friday. She has been having intermittent bowel and urine leakage over the past 4 to 5 months. She states the pain is more as a electrical shock descends down into her feet. She states she fell 2 months ago landing on her back but did not get seen. She reports marijuana use. Subtle changes in weight but no excessive weight loss or history of cancer, fever, vomiting, diarrhea, chest pain, shortness of breath. Allergies and Home Medications Allergies Coded Allergies: methocarbamol (Unverified Allergy, Unknown, 03/02/20) fentanyl (Verified Adverse Reaction, Unknown, 03/02/20) Patient Home Medication List Home Medication List Reviewed: Yes Albuterol Sulfate (Proair Hfa) 1 Puff Puff, 2 PUFF IH Q4H PRN for SHORTNESS OF BREATH, (Reported) Entered as Reported by: SUHA OLIVER on 01/31/21 1325 Amoxicillin/Potassium Clav (Augmentin 875-125 Tablet) 1 Each Tablet, 1 EACH PO BID Prescribed by: LARON CHRISTOPHER on 02/02/21 1115 Amoxicillin/Potassium Clav (Augmentin 875-125 Tablet) 1 Each Tablet, 1 EACH PO BID Prescribed by: MYRA DONATO on 11/03/21 0439 Brexpiprazole (Rexulti) 2 Mg Tablet, 2 MG PO HS, (Reported) Entered as Reported by: JOSE R JAMES on 05/10/17 2105 Buspirone HCl (Buspirone HCl) 30 Mg Tablet, 30 MG PO BID, (Reported) Entered as Reported by: SUHA OLIVER on 01/31/21 1334 Cephalexin (Cephalexin) 500 Mg Tablet, 500 MG PO BID Prescribed by: SELENA STERN on 11/28/212242 Dicyclomine HCl (Dicyclomine HCl) 20 Mg Tablet, 20 MG PO QID Prescribed by: SELENA STERN on 11/28/212242 Escitalopram Oxalate (Escitalopram Oxalate) 20 Mg Tablet, 20 MG PO HS, (Reported) Entered as Reported by: SUHA OLIVER on 01/31/21 132 Eszopiclone (Lunesta) 2 Mg Tablet, 2 MG PO HS, (Reported) Entered as Reported by: SUHA OLIVER on 01/31/21 132 Hydrocodone/Acetaminophen (Hydrocodone-Acetamin 5-325 mg) 5 Mg-325 Mg Tablet, 1 TAB PO Q4H PRN for PAIN-MODERATE (5-7) Prescribed by: SELENA STERN on 12/26/212212 Ibuprofen (Ibuprofen) 200 Mg Tablet, 400-600 MG PO Q8H PRN for PAIN-MILD (1-4), (Reported) Entered as Reported by: SUHA OLIVER on 01/31/21 132 Levothyroxine Sodium (Levothyroxine Sodium) 125 Mcg Tablet, 125 MCG PO HS, (Reported) Entered as Reported by: SUHA OLIVER on 01/31/21 132 Lisinopril (Lisinopril) 2.5 Mg Tablet, 2.5 MG PO HS, (Reported) Entered as Reported by: SUHA OLIVER on 01/31/21 132 Lovastatin (Lovastatin) 20 Mg Tablet, 20 MG PO HS, (Reported) Entered as Reported by: SUHA OLIVER on 01/31/21 132 Metformin HCl (Metformin HCl ER) 500 Mg Tab.er.24h, 500 MG PO BID, (Reported) Entered as Reported by: JOSE R JAMES on 05/10/172104 Methylprednisolone (Medrol Dose pack) 4 Mg Tab, 4 MG PO UD Prescribed by: SELENA STERN on 12/26/212212 Nabumetone (Nabumetone) 500 Mg Tablet, 500 MG PO BID, (Reported) Entered as Reported by: SUHA OLIVER on 01/31/21 132 Tizanidine HCl (Tizanidine HCl) 4 Mg Tablet, 4 TAB PO TID, (Reported) Entered as Reported by: JOSE R JAMES on 12/25/15 5626 Review of Systems Constitutional: No chills, No diaphoresis, No malaise, No weakness EENTM: No blurred vision, No double vision Respiratory: No cough, No dyspnea on exertion Cardiovascular: No chest pain Gastrointestinal: No abdominal pain, No diarrhea, No nausea, No vomiting Genitourinary: No decreased output, No discharge Musculoskeletal: back pain; No joint swelling, No muscle pain Skin: No change in color, No change in hair/nails All Other Systems Reviewed Negative Unless Noted: Yes Past Wxbswtc-Ldbqek-Fipfsz Hx Immunizations Up To Date Tetanus Booster (TDap): Unknown First/Initial COVID19 Vaccinat: 2020 Second COVID19 Vaccination Joshua: 2020 Seasonal Allergies Seasonal Allergies: No Past Medical History Surgery/Hospitalization HX: COPD HYSTERECTOMY Surgeries: Yes (SEE BELOW) Gallbladder, Hysterectomy, Oophorectomy, Orthopedic, Tracheostomy Respiratory: Yes (R LUNG BX;BILAT CHEST TUBES-PNEUMONIA W/VENT W/ TRACH 1995;O2 AT 2L/NC ) Asthma, Pneumonia, Chronic Bronchitis, Sleep Apnea, COPD Currently Using CPAP: No Currently Using BIPAP: No Cardiac: Yes High Cholesterol, Hypertension Neurological: Yes (lumbar neural foraminal stenosis) Headaches /Migraines, Seizure Disorder 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 No Pertinent Family Hx SOCIAL HISTORY: -SMOKES 1 PPD -ETOH--OCCASIONAL USE -DRUGS-DAILY MARIJUANA USE PSH: -RIGHT ARM FX/ORIF--RODS/SCREWS -BILATERAL CHEST TUBES AND TRACHEOSTOMY FOR PNEUMONIA -RIGHT LUNG BIOPSY -DENTAL SURGERY -SPINAL CORD STIMULATOR 2015 -HYSTERECTOMY/LEFT SALPINGO-OOPHORECTOMY -CHOLECYSTECTOMY -COLONOSCOPY 09/2015-NORMAL Physical Exam Vital Signs Vital Signs - First Documented 12/26/21 20:38 Temp 36.9 Pulse 71 Resp 18 B/P (MAP) 118/79 (92) Pulse Ox 99 O2 Delivery Room Air Capillary Refill : Height, Weight, BMI Height: 5'9.00" Weight: 247lbs. 0.0oz. 112.381966tg; 32.00 BMI Method:Actual General Appearance: No Apparent Distress, WD/WN HEENT: PERRL/EOMI, TMs Normal, Normal ENT Inspection, Pharynx Normal Neck: Full Range of Motion, Normal Inspection, Non Tender, Supple Cardiovascular: Regular Rate, Rhythm, No Edema, No Gallop, No JVD, No Murmur Respiratory: Chest Non Tender, Lungs Clear, Normal Breath Sounds, No Accessory Muscle Use, No Respiratory Distress Gastrointestinal: Normal Bowel Sounds, No Organomegaly, No Pulsatile Mass, Non Tender, Soft Back: Vertebral Tenderness (Lumbar midline tenderness) Extremity: Normal Capillary Refill, Normal Inspection, Normal Range of Motion, Non Tender Neurologic/Psychiatric: Alert, Oriented x3, No Motor/Sensory Deficits, Normal Mood/Affect, mushroom spawn maker II-XII Norm as Tested Skin: Normal Color, Warm/Dry Progress/Results/Core Measures Results/Orders My Orders Orders - GAIL BAGLEY Ct Lumbar Spine Wo (12/26/21 20:46) Hydrocodone/Apap 5/325 Tablet (Lortab 5 (12/26/21 21:00) Ketorolac Injection (Toradol Injection) (12/26/21 21:00) Orphenadrine Inj (Ed Only) (Norflex Inje (12/26/21 21:00) Medications Given in ED Current Medications Medications Dose Ordered Sig/Bridgette Route Start Time Stop Time Status Last Admin Dose Admin Acetaminophen/ Hydrocodone Bitart 1 ea ONCE ONCE PO 12/26/21 21:00 12/26/21 21:01 DC 12/26/21 21:04 1 EA Ketorolac Tromethamine 30 mg ONCE ONCE IM 12/26/21 21:00 12/26/21 21:01 DC 12/26/21 21:04 30 MG Orphenadrine Citrate 60 mg ONCE ONCE IM 12/26/21 21:00 12/26/21 21:01 DC 12/26/21 21:04 60 MG Vital Signs/I&O 12/26/21 12/26/21 20:38 22:20 Temp 36.9 Pulse 71 73 Resp 18 18 B/P (MAP) 118/79 (92) 121/74 Pulse Ox 99 97 O2 Delivery Room Air Room Air Departure Communication (PCP) Patient appears to have appropriate rectal tone. She currently wears depends secondary to bowel and urine incontinence over the past 4 to 5 months. She has a history of chronic low back pain for the past 7 years and had a stimulator placed 6 years ago and removed secondary to complications. Afebrile. Denies of any drug use besides THC. No significant weight loss. She does have normal sensation but she states she is slightly diminished. She does appear to have strength bilateral. CT scan of the lower back shows disc bulging and facet arthropathy resulting in moderate trefoil type spinal stenosis from L3-L4 through L5-S1. She was given pain medication with some improvement. Discussed this with Dr. Marin neurosurgeon at [facility] secondary to patient's complaints and imaging results. Does not appear to be cauda equina syndrome however concerning for the bowel and urine incontinence and her worsening symptoms. She felt like this was not emergency however patient is scheduled for MRI next weeks which she recommends pushing sooner rather than later. She states she will follow-up outpatient in the clinic and this was provided with to the patient. If any worsening symptoms such as loss of motor function, worsening pain to return back to ED. She agrees with this plan of action. Will discharge with pain medication. She felt better with this plan. She is able to ambulate but better improvement of pain in the back but does have some numbness and tingling into bilateral feet Impression Primary Impression: Back pain Additional Impression: Lumbar radiculopathy Disposition: 01 HOME, SELF-CARE Condition: Stable Departure-Patient Inst. Decision time for Depature: 22:12 Referrals: [facility] [place] (PCP/Family) Primary Care Physician Patient Instructions: Low Back Pain (DC) Scripts Hydrocodone/Acetaminophen (Hydrocodone-Acetamin 5-325 mg) 5 Mg-325 Mg Tablet 1 TAB PO Q4H PRN for PAIN-MODERATE (5-7), #8 TAB Prov: GAIL BAGLEY 12/26/21 Methylprednisolone (Medrol Dose pack) 4 Mg Tab 4 MG PO UD for 6 Days, #21 TAB as directed per dose pack Prov: GAIL BAGLEY 12/26/21 Work/School Note: Work Release Form Date Seen in the Emergency Department: Dec 26, 2021 Return to Work: Dec 29, 2021 GAIL BAGLEY Dec 26, 2021 20:51
[2021-12-26] MEDS ORDERED: HYDROcodone/APAP 5 MG/325 MG (LORTAB) TAB PO ONE (21:00)
[2021-12-26] MEDS ORDERED: KETOROLAC 30 MG/ML VIAL IM ONE (21:00)
[2021-12-26] MEDS ORDERED: ORPHENADRINE 60 MG/2 ML (NORFLEX) AMP (ED ONLY) IM ONE (21:00)
--- NOTE | 2021-12-26 21:45 | Diagnostic Imaging Report ---
PROCEDURE: CT lumbar spine without contrast. TECHNIQUE: Multiple contiguous axial images were obtained through the lumbar spine without the use of intravenous contrast. Sagittal and coronal reformations were then performed. Auto Exposure Controls were utilized during the CT exam to meet ALARA standards for radiation dose reduction. INDICATION: Fall with back pain. COMPARISON: 02/12/2018. FINDINGS: Lumbar spinal curvature and alignment are unremarkable. AP dimension of spinal canal is at the lower limits of normal, diffusely. This may be due to congenitally short pedicles. Vertebral body heights are maintained. There is no evidence of acute fracture. There is moderate degenerative facet arthropathy from the L3-L4 level through L5-S1. This does result in probable moderate trefoil type spinal stenosis at these levels. No paraspinous hematoma is seen. IMPRESSION: No acute fracture or malalignment is identified. 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 In addition, disc bulging and facet arthropathy results in moderate trefoil type spinal stenosis from L3-L4 through L5-S1. Dictated by: Dictated on workstation # [id number]
[2021-12-26] MEDS ORDERED: ACHD5005 PO (22:13)
[2021-12-26] MEDS ORDERED: NF-METHYLP PO (22:13)
[2021-12-26 22:20] VITALS: BP 121/74
== END 2021-12-26 22:20 | disposition home or self-care (01) ==
LOC: EDUNIT# 20:31 → ER 20:34
DX: M54.16 Radiculopathy, lumbar region (principal); M48.061 Spinal stenosis, lumbar region without neurogenic claudication; E66.9 Obesity, unspecified; Z68.32 Body mass index [BMI] 32.0-32.9, adult
CPT/HCPCS: 72131

== ENCOUNTER 2022-01-01 15:49 | Emergency (ER) | payer OTHER ==
[~2022-01-01] VITALS: Ht 175.2 cm; Wt 97.0 kg
[2022-01-01] MEDS ORDERED: ACHD5005 PO (17:21)
--- NOTE | 2022-01-01 17:22 | ED Back Pain ---
General Chief Complaint: Back Problems Stated Complaint: BACK PAIN Nursing Triage Note: PT TO RM 3 WITH CC OF LOWER BACK PAIN. PT REPORTS WAS HERE 12/26/21 FOR SAME CONCERN. HX OF BACK PAIN AND SPINAL DEGENERATION. PT STATES "BACK PAIN HAS PROGRESSIVLY GOTTEN WORSE." MRI DONE THIS AM. PT A&OX4 Source of Information: Patient Exam Limitations: No Limitations History of Present Illness Date Seen by Provider: Jan 01, 2022 Time Seen by Provider: 17:17 Initial Comments This is a well-appearing 46-year-old female who presented to the ER with complaints of lower back pain. States that she just had an MRI of her lower back and presented to the ER because she was having increasing pain. Allergies and Home Medications Allergies Coded Allergies: methocarbamol (Unverified Allergy, Unknown, 03/02/20) fentanyl (Verified Adverse Reaction, Unknown, 03/02/20) Patient Home Medication List Home Medication List Reviewed: Yes Albuterol Sulfate (Proair Hfa) 1 Puff Puff, 2 PUFF IH Q4H PRN for SHORTNESS OF BREATH, (Reported) Entered as Reported by: SUHA OLIVER on 01/31/21 1325 Amoxicillin/Potassium Clav (Augmentin 875-125 Tablet) 1 Each Tablet, 1 EACH PO BID Prescribed by: LARON CHRISTOPHER on 02/02/21 1115 Amoxicillin/Potassium Clav (Augmentin 875-125 Tablet) 1 Each Tablet, 1 EACH PO B ID Prescribed by: MYRA DONATO on 11/03/21 0439 Brexpiprazole (Rexulti) 2 Mg Tablet, 2 MG PO HS, (Reported) Entered as Reported by: JOSE R JAMES on 05/10/17 2105 Buspirone HCl (Buspirone HCl) 30 Mg Tablet, 30 MG PO BID, (Reported) Entered as Reported by: SUHA OLIVER on 01/31/21 1334 Cephalexin (Cephalexin) 500 Mg Tablet, 500 MG PO BID Prescribed by: SELENA STERN on 11/28/21 224 Dicyclomine HCl (Dicyclomine HCl) 20 Mg Tablet, 20 MG PO QID Prescribed by: SELENA STERN on 11/28/21 224 Escitalopram Oxalate (Escitalopram Oxalate) 20 Mg Tablet, 20 MG PO HS, (Reported) Entered as Reported by: SUHA OLIVER on 01/31/21 1325 Eszopiclone (Lunesta) 2 Mg Tablet, 2 MG PO HS, (Reported) Entered as Reported by: SUHA OLIVER on 01/31/21 1325 Hydrocodone/Acetaminophen (Hydrocodone-Acetamin 5-325 mg) 5 Mg-325 Mg Tablet, 1 TAB PO Q4H PRN for PAIN-MODERATE (5-7) Prescribed by: SELENA STERN on 12/26/212212 Hydrocodone/Acetaminophen (Hydrocodone-Acetamin 5-325 mg) 5 Mg-325 Mg Tablet, 1 TAB PO Q6H PRN for PAIN-MODERATE (5-7) Prescribed by: MARY WEST on 01/01/22 1722 Ibuprofen (Ibuprofen) 200 Mg Tablet, 400-600 MG PO Q8H PRN for PAIN-MILD (1-4), (Reported) Entered as Reported by: SUHA OLIVER on 01/31/21 1325 Levothyroxine Sodium (Levothyroxine Sodium) 125 Mcg Tablet, 125 MCG PO HS, (Reported) Entered as Reported by: SUHA OLIVER on 01/31/21 1325 Lisinopril (Lisinopril) 2.5 Mg Tablet, 2.5 MG PO HS, (Reported) Entered as Reported by: SUHA OLIVER on 01/31/21 1325 Lovastatin (Lovastatin) 20 Mg Tablet, 20 MG PO HS, (Reported) Entered as Reported by: SUHA OLIVER on 01/31/21 1325 Metformin HCl (Metformin HCl ER) 500 Mg Tab.er.24h, 500 MG PO BID, (Reported) Entered as Reported by: JOSE R JAMES on 05/10/172104 Methylprednisolone (Medrol Dose pack) 4 Mg Tab, 4 MG PO UD Prescribed by: SELENA STERN on 12/26/212212 Nabumetone (Nabumetone) 500 Mg Tablet, 500 MG PO BID, (Reported) Entered as Reported by: SUHA OLIVER on 01/31/21 132 Tizanidine HCl (Tizanidine HCl) 4 Mg Tablet, 4 TAB PO TID, (Reported) Entered as Reported by: JOSE R JAMES on 12/25/152246 Past Yssbqeq-Trsekc-Ulvowz Hx Patient Social History Tobacco Use?: Yes Tobacco type used: Cigarettes Smoking Status: Current Everyday Smoker Substance use?: Yes Substance type: Marijuana Substance frequency: Daily Alcohol Use?: No Pt feels they are or have been: No Immunizations Up To Date Tetanus Booster (TDap): Unknown First/Initial COVID19 Vaccinat: 2020 Second COVID19 Vaccination Joshua: 2020 Third COVID19 Vaccination Date: 2020 Seasonal Allergies Seasonal Allergies: No Past Medical History Surgery/Hospitalization HX: COPD HYSTERECTOMY Surgeries: Yes (SEE BELOW) Gallbladder, Hysterectomy, Oophorectomy, Orthopedic, Tracheostomy Respiratory: Yes (R LUNG BX;BILAT CHEST TUBES-PNEUMONIA W/VENT W/ TRACH 1995;O2 AT 2L/NC ) Asthma, Pneumonia, Chronic Bronchitis, Sleep Apnea, COPD Currently Using CPAP: No Currently Using BIPAP: No Cardiac: Yes High Cholesterol, Hypertension Neurological: Yes (lumbar neural foraminal stenosis) Headaches /Migraines, Seizure Disorder 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 No Pertinent Family Hx SOCIAL HISTORY: -SMOKES 1 PPD -ETOH--OCCASIONAL USE -DRUGS-DAILY MARIJUANA USE PSH: -RIGHT ARM FX/ORIF--RODS/SCREWS -BILATERAL CHEST TUBES AND TRACHEOSTOMY FOR PNEUMONIA -RIGHT LUNG BIOPSY -DENTAL SURGERY -SPINAL CORD STIMULATOR 2015 -HYSTERECTOMY/LEFT SALPINGO-OOPHORECTOMY -CHOLECYSTECTOMY -COLONOSCOPY 09/2015-NORMAL Physical Exam Vital Signs Vital Signs - First Documented 01/01/22 16:18 Temp 36.3 Pulse 78 Resp 16 B/P (MAP) 99/55 (70) Pulse Ox 97 O2 Delivery Room Air Capillary Refill : Less Than 3 Seconds Height, Weight, BMI Height: 5'9.00" Weight: 247lbs. 0.0oz. 112.249135zk; 31.00 BMI Method:Actual Progress/Results/Core Measures Results/Orders My Orders Orders - MARY WEST APRN Hydrocodone/Apap 5/325 Tablet (Lortab 5 (01/01/22 18:00) Vital Signs/I&O 01/01/22 01/01/22 16:18 17:56 Temp 36.3 Pulse 78 62 Resp 16 18 B/P (MAP) 99/55 (70) 124/74 Pulse Ox 97 98 O2 Delivery Room Air Room Air Blood Pressure Mean: 70 Departure Impression Primary Impression: Lumbar radiculopathy Disposition: HOME, SELF-CARE Condition: Stable Departure-Patient Inst. Decision time for Depature: 17:17 Referrals: [facility] (PCP/Family) Primary Care Physician Patient Instructions: Radiculopathy Add. Discharge Instructions: Plan: 1. Follow up with your primary care provider regarding results of MRI. 2. Take Hydrocodone as directed, do not take more than directed. 3. Wear binder to help provide support. Avoid excessive bending, twisting, pulling. 4. Return for any new, concerning, or worsening symptoms. All discharge instructions reviewed with patient and/or family. Voiced unde rstanding. Scripts Hydrocodone/Acetaminophen (Hydrocodone-Acetamin 5-325 mg) 5 Mg-325 Mg Tablet 1 TAB PO Q6H PRN for PAIN-MODERATE (5-7), #14 TAB 0 Refills Prov: MARY WEST APRN 01/01/22 MARY WEST APRN Jan 01, 2022 17:22
[2022-01-01 17:56] VITALS: BP 124/74
[2022-01-01] MEDS ORDERED: HYDROcodone/APAP 5 MG/325 MG (LORTAB) TAB PO ONE (18:00)
== END 2022-01-01 17:56 | disposition home or self-care (01) ==
LOC: EDUNIT# 15:49 → ER 15:50
DX: M54.16 Radiculopathy, lumbar region (principal); E66.9 Obesity, unspecified; F17.210 Nicotine dependence, cigarettes, uncomplicated; Z68.31 Body mass index [BMI] 31.0-31.9, adult; Z88.5 Allergy status to narcotic agent
CPT/HCPCS: 99283

== ENCOUNTER → 2022-01-01 | Outpatient (CLI) | payer OTHER ==
[~2022-01-01] MED LIST changes: +ACHD5005 PO; +NF-METHYLP PO
--- NOTE | 2022-01-01 11:12 | Diagnostic Imaging Report ---
PROCEDURE: MRI lumbar spine. TECHNIQUE: Multiplanar, multisequence MRI of the lumbar spine was performed without contrast. INDICATION: Lower back pain. History of indwelling and subsequently removed neurostimulator device. COMPARISON: 11/14/2015. FINDINGS: For the purposes of this exam, the last well-formed disc space is denoted the L5-S1 level. Static alignment of the lumbar spine is maintained. There is no significant misael or retrolisthesis. There is no evidence of jumped facets. Vertebral body heights are maintained. There is no acute fracture. Marrow signal is normal throughout. Intervertebral disc heights are fairly well-maintained. Visualized portions of the distal cord are unremarkable. Conus terminates at approximately the L1-L2 level. No abnormal intrathecal filling defects are seen. Pre and paravertebral soft tissue structures are unremarkable. Axial images demonstrate the following: T12-L1: There is no large disc bulge or focal protrusion. There is no significant spinal canal or neuroforaminal stenosis. L1-L2: There is minimal posterior disc bulge but no significant spinal canal or neuroforaminal stenosis. L2-L3: There is no large disc bulge or focal protrusion. There is bilateral facet arthropathy, right greater than left. As a result, there is mild narrowing of the right lateral recess and right neuroforamen. Spinal canal and left neuroforamen are unremarkable. L3-L4: There is a small left paracentric posterior disc protrusion superimposed on broad-based posterior disc bulge. There is also bilateral ligamentum flavum laxity and facet arthropathy. As a result, there is mild to moderate narrowing of the spinal canal and mild narrowing of the bilateral neural foramen. L4-L5: There is broad-based posterior disc bulge and bilateral ligamentum flavum laxity and facet arthropathy. As a result, there is mild to moderate stenosis of the spinal canal and mild narrowing of the bilateral neural foramen. L5-S1: There is no large disc bulge or focal protrusion. There is bilateral facet arthropathy and ligamentum flavum laxity. As a result, there is mild narrowing of the bilateral neural foramen. Spinal canal is unremarkable. IMPRESSION: 1. Mild to moderate multilevel degenerative changes of the lumbar spine as described above. 2. No acute fracture or dislocation. Dictated by: Dictated on workstation # [id number]
== END ==
LOC: RAD 12-14 09:30
PROVIDERS: ATTEND Pediatrics
DX: M47.816 Spondylosis without myelopathy or radiculopathy, lumbar region (principal); M48.061 Spinal stenosis, lumbar region without neurogenic claudication; M51.26 Other intervertebral disc displacement, lumbar region
CPT/HCPCS: 72148

== ENCOUNTER 2022-01-12 18:13 | Emergency (ER) | payer OTHER ==
[~2022-01-12] VITALS: Ht 175.2 cm; Wt 97.0 kg
[~2022-01-12 18:13] MED LIST changes: +LEVO-55 PO; -LEVO500T81 PO
--- NOTE | 2022-01-12 18:34 | ED Back Pain ---
General Chief Complaint: Back Problems Stated Complaint: LOW BACK PAIN Nursing Triage Note: C/O LOW BACK PAIN THAT IS STARTING IN HER MID LOW BACK AND WRAPPING AROUND HER HIPS IN THE FRONT. Source of Information: Patient, Old Records History of Present Illness Date Seen by Provider: Jan 12, 2022 Time Seen by Provider: 18:25 Initial Comments PT ARRIVES VIA POV FROM HOME C/O CHRONIC LOW BACK PAIN PAIN RADIATES DOWN BOTH LEGS CHRONICALLY, AND BOTH LEGS CHRONICALLY FEEL NUMB AND TINGLY--THIS IS NOT ANY DIFFERENT THAN NORMAL HAS CHRONIC URINARY AND OCCASIONAL BOWEL INCONTINENCE, GRADUALLY GETTING WORSE OVER THE LAST SEVERAL MONTHS--NOT ANY DIFFERENT TODAY PT HAD A SPINAL CORD STIMULATOR PLACED IN [address] CLARA MORLEY, THEN HAD IT REMOVED A YEAR LATER BY UNKNOWN DR CLARA LOPEZ PAIN IS NOW STARTING TO WRAP AROUND FROM HER LOWER BACK TO HER LOWER ABDOMEN NO PAIN ON URINATION PT WAS SEEN HERE 12/26/21 FOR THIS PROBLEM AND HAD CT SCAN OF LUMBAR SPINE, SHOWING DEGENERATIVE DISEASE AND WAS PRESCRIBED HYDROCODONE AND METHYLPREDNISOLONE PT HAD AN MRI 01/01/22 AND WAS SEEN HERE ON 01/01/22 FOR THIS PROBLEM--SHOWING DEGENERATIVE DISEASE, AND WAS PRESCRIBED HYDROCODONE PT DOES NOT MENTION ANY OF THESE MEDICATIONS TODAY. PT STATES SHE WAS ONLY PRESCRIBED IBUPROFEN 800 MG, AND IT IS NOT HELPING--LAST DOSE WAS AT 1400 TODAY PT HAS NOT ATTEMPTED TO FOLLOW UP WITH [facility] OR ANYONE SINCE THOSE ER VISITS AT ANY TIME, AND DOES NOT HAVE ANY UPCOMING APPOINTMENTS WITH ANYONE. Other Comments PCP: SARA CAMACHO Allergies and Home Medications Allergies Coded Allergies: methocarbamol (Unverified Allergy, Unknown, 03/02/20) fentanyl (Verified Adverse Reaction, Unknown, 03/02/20) Patient Home Medication List Albuterol Sulfate (Proair Hfa) 1 Puff Puff, 2 PUFF IH Q4H PRN for SHORTNESS OF BREATH, (Reported) Entered as Reported by: SUHA OLIVER on 01/31/21 1325 Amoxicillin/Potassium Clav (Augmentin 875-125 Tablet) 1 Each Tablet, 1 EACH PO BID Prescribed by: LARON CHRISTOPHER on 02/02/21 1115 Amoxicillin/Potassium Clav (Augmentin 875-125 Tablet) 1 Each Tablet, 1 EACH PO BID Prescribed by: MYRA DONATO on 11/03/21 0439 Brexpiprazole (Rexulti) 2 Mg Tablet, 2 MG PO HS, (Reported) Entered as Reported by: JOSE R JAMES on 05/10/172104 Buspirone HCl (Buspirone HCl) 30 Mg Tablet, 30 MG PO BID, (Reported) Entered as Reported by: SUHA OLIVER on 01/31/21 1334 Cephalexin (Cephalexin) 500 Mg Tablet, 500 MG PO BID Prescribed by: SELENA STERN on 11/28/21 224 Dicyclomine HCl (Dicyclomine HCl) 20 Mg Tablet, 20 MG PO QID Prescribed by: SELENA STERN on 11/28/21 224 Escitalopram Oxalate (Escitalopram Oxalate) 20 Mg Tablet, 20 MG PO HS, (Reported) Entered as Reported by: SUHA OLIVER on 01/31/21 132 Eszopiclone (Lunesta) 2 Mg Tablet, 2 MG PO HS, (Reported) Entered as Reported by: SUHA OLIVER on 01/31/21 1325 Hydrocodone/Acetaminophen (Hydrocodone-Acetamin 5-325 mg) 5 Mg-325 Mg Tablet, 1 TAB PO Q4H PRN for PAIN-MODERATE (5-7) Prescribed by: SELENA STERN on 12/26/21 2213 Hydrocodone/Acetaminophen (Hydrocodone-Acetamin 5-325 mg) 5 Mg-325 Mg Tablet, 1 TAB PO Q6H PRN for PAIN-MODERATE (5-7) Prescribed by: MARY WEST on 01/01/22 1722 Ibuprofen (Ibuprofen) 200 Mg Tablet, 400-600 MG PO Q8H PRN for PAIN-MILD (1-4), (Reported) Entered as Reported by: SUHA OLIVER on 01/31/21 1325 Levothyroxine Sodium (Levothyroxine Sodium) 125 Mcg Tablet, 125 MCG PO HS, (Reported) Entered as Reported by: SUHA OLIVER on 01/31/21 1325 Lisinopril (Lisinopril) 2.5 Mg Tablet, 2.5 MG PO HS, (Reported) Entered as Reported by: SUHA OLIVER on 01/31/21 1325 Lovastatin (Lovastatin) 20 Mg Tablet, 20 MG PO HS, (Reported) Entered as Reported by: SUHA OLIVER on 01/31/21 1325 Metformin HCl (Metformin HCl ER) 500 Mg Tab.er.24h, 500 MG PO BID, (Reported) Entered as Reported by: JOSE R JAMES on 05/10/172104 Methylprednisolone (Medrol Dose pack) 4 Mg Tab, 4 MG PO UD Prescribed by: SELENA STERN on 12/26/212212 Nabumetone (Nabumetone) 500 Mg Tablet, 500 MG PO BID, (Reported) Entered as Reported by: SUHA OLIVER on 01/31/21 1325 Tizanidine HCl (Tizanidine HCl) 4 Mg Tablet, 4 TAB PO TID, (Reported) Entered as Reported by: JOSE R JAMES on 12/25/15 2247 Review of Systems Constitutional: no symptoms reported; No fever Respiratory: no symptoms reported Cardiovascular: no symptoms reported Gastrointestinal: see HPI; No constipation, No diarrhea, No nausea, No vomiting Genitourinary: see HPI : No Control/STD Prophylaxis: Other (HYSTERECTOMY) Musculoskeletal: see HPI Skin: no symptoms reported; No rash Psychiatric/Neurological: See HPI Past Rayrwvs-Musxua-Sawarr Hx Patient Social History Tobacco Use?: Yes Tobacco type used: Cigarettes Smoking Status: Current Everyday Smoker Substance use?: Yes Substance type: Marijuana Immunizations Up To Date Tetanus Booster (TDap): Unknown First/Initial COVID19 Vaccinat: 2020 Second COVID19 Vaccination Joshua: 2020 Third COVID19 Vaccination Date: 2020 Seasonal Allergies Seasonal Allergies: No Past Medical History Surgery/Hospitalization HX: COPD HYSTERECTOMY Surgeries: Yes (SEE BELOW) Gallbladder, Hysterectomy, Oophorectomy, Orthopedic, Tracheostomy Respiratory: Yes (R LUNG BX;BILAT CHEST TUBES-PNEUMONIA W/VENT W/ TRACH 1995;O2 AT 2L/NC ) Asthma, Pneumonia, Chronic Bronchitis, Sleep Apnea, COPD Currently Using CPAP: No Currently Using BIPAP: No Cardiac: Yes High Cholesterol, Hypertension Neurological: Yes (lumbar neural foraminal stenosis) Headaches /Migraines, Seizure Disorder 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 No Pertinent Family Hx SOCIAL HISTORY: -SMOKES 1 PPD -ETOH--OCCASIONAL USE -DRUGS-DAILY MARIJUANA USE PSH: -RIGHT ARM FX/ORIF--RODS/SCREWS -BILATERAL CHEST TUBES AND TRACHEOSTOMY FOR PNEUMONIA -RIGHT LUNG BIOPSY -DENTAL SURGERY -SPINAL CORD STIMULATOR 2015 -HYSTERECTOMY/LEFT SALPINGO-OOPHORECTOMY -CHOLECYSTECTOMY -COLONOSCOPY 09/2015-NORMAL Physical Exam Vital Signs Vital Signs - First Documented 01/12/22 18:25 Temp 36.2 Pulse 82 Resp 16 B/P (MAP) 143/63 (89) Pulse Ox 95 Capillary Refill : Less Than 3 Seconds Height, Weight, BMI Height: 5'9.00" Weight: 247lbs. 0.0oz. 112.561210rk; 31.00 BMI Method:Actual General Appearance: No Apparent Distress, WD/WN, Obese, Other (REEKS OF CIGARETTES AND THC, AND MULTIPLE BURN HOLES IN HER CLOTHING; AMBULATES IN ON HER OWN) Neck: Normal Inspection Cardiovascular: Regular Rate, Rhythm, No Edema, No JVD, No Murmur Respiratory: Normal Breath Sounds, No Accessory Muscle Use, No Respiratory Distress Gastrointestinal: Soft, Tenderness (DIFFUSE LOWER ABDOMINAL TENDERENSS) Back: Decreased Range of Motion, Other (DIFFUSE BACK TENDERNESS) Extremity: Normal Capillary Refill, Normal Inspection, Normal Range of Motion, Non Tender, No Calf Tenderness, No Pedal Edema, Other (DTR'S +2/4 BILATERALLY) Neurologic/Psychiatric: Alert, Oriented x3, No Motor/Sensory Deficits, Normal Mood/Affect, case finisher II-XII Norm as Tested, Other Skin: Normal Color, Warm/Dry; No Rash; Other (BUT HAS MULTIPLE SORES/SCABBED WOUND ON ARMS, LEGS AND ABDOMEN--NO SIGNS OF SECONDARY INFECTION) Progress/Results/Core Measures Results/Orders Lab Results Laboratory Tests Test 01/12/22 18:32 Range/Units Urine Color YELLOW Urine Clarity SL CLOUDY Urine pH 5.5 5-9 Urine Specific [place] 1.015 L 1.016-1.022 Urine Protein NEGATIVE NEGATIVE Urine Glucose (UA) NEGATIVE NEGATIVE Urine Ketones NEGATIVE NEGATIVE Urine Nitrite NEGATIVE NEGATIVE Urine Bilirubin NEGATIVE NEGATIVE Urine Urobilinogen 0.2 < = 1.0 MG/DL Urine Leukocyte Esterase 1+ H NEGATIVE Urine RBC (Auto) NEGATIVE NEGATIVE Urine RBC NONE /HPF Urine WBC 10-25 H /HPF Urine Squamous Epithelial Cells 5-10 /HPF Urine Crystals NONE /LPF Urine Bacteria FEW H /HPF Urine Casts NONE /LPF Urine Mucus NEGATIVE /LPF Urine Trichomonas FEW H /HPF Urine Culture Indicated YES Urine Opiates Screen NEGATIVE NEGATIVE Urine Oxycodone Screen NEGATIVE NEGATIVE Urine Methadone Screen NEGATIVE NEGATIVE Urine Propoxyphene Screen NEGATIVE NEGATIVE Urine Barbiturates Screen NEGATIVE NEGATIVE Ur Tricyclic Antidepressants Screen NEGATIVE NEGATIVE Urine Phencyclidine Screen NEGATIVE NEGATIVE Urine Amphetamines Screen NEGATIVE NEGATIVE Urine Methamphetamines Screen NEGATIVE NEGATIVE Urine Benzodiazepines Screen NEGATIVE NEGATIVE Urine Cocaine Screen NEGATIVE NEGATIVE Urine Cannabinoids Screen POSITIVE H NEGATIVE My Orders Orders - VIDAL GALEANA DO Ua Culture If Indicated (01/12/22 18:26) Drug Screen Stat (Urine) (01/12/22 18:34) Urine Culture (01/12/22 18:32) Vital Signs/I&O 01/12/22 18:25 Temp 36.2 Pulse 82 Resp 16 B/P (MAP) 143/63 (89) Pulse Ox 95 Blood Pressure Mean: 89 Departure Impression Primary Impression: Urinary tract infection Additional Impression: Chronic back pain Disposition: 01 HOME, SELF-CARE Condition: Stable Departure-Patient Inst. Decision time for Depature: 19:12 Referrals: SUHA ROBLEDO DO (PCP/Family) Primary Care Physician Patient Instructions: Low Back Pain (DC), MANAGING YOUR CHRONIC PAIN, Urinary Tract Infection, Adult (DC) Add. Discharge Instructions: LOTS OF CLEAR LIQUIDS--NO COFFEE, POP OR TEA CONTINUE YOUR REGULAR MEDICATIONS PRESCRIBED, INCLUDING YOUR TIZANIDINE FOLLOW UP WITH [facility] IN 2-3 DAYS FOR FURTHER CARE All discharge instructions reviewed with patient and/or family. Voiced understanding. Scripts Ketorolac Tromethamine (Ketorolac Tromethamine) 10 Mg Tablet 10 MG PO Q6H for Pain, #15 TAB Prov: VIDAL GALEANA DO 01/12/22 Phenazopyridine HCl (Pyridium) 200 Mg Tablet 1 TAB PO TID, #15 TAB Prov: VIDAL GALEANA DO 01/12/22 Nitrofurantoin Monohyd/M-Cryst (Macrobid 100 mg Capsule) 100 Mg Capsule 1 TAB PO BID, #20 CAP Prov: VIDAL GALEANA DO 01/12/22 VIDAL GALEANA DO Jan 12, 2022 18:34
[2022-01-12 18:43] LABS: BILIRUBIN,URINE NEGATIVE (NEGATIVE); CLARITY,URINE SL CLOUDY; COLOR,URINE YELLOW; GLUCOSE, URINE (UA) NEGATIVE (NEGATIVE); KETONES,URINE NEGATIVE (NEGATIVE); LEUKOCYTE ESTERASE ,URINE 1+ (NEGATIVE); NITRITE,URINE NEGATIVE (NEGATIVE); PH,URINE 5.5 (5-9); PROTEIN,URINE NEGATIVE (NEGATIVE)
[2022-01-12 19:04] LABS: BACTERIA,URINE FEW /HPF
[2022-01-12 19:06] LABS: TRICHOMONAS,URINE FEW /HPF
[2022-01-12 19:11] LABS: AMPHETAMINE SCREEN, URINE NEGATIVE (NEGATIVE); BARBITURATE SCREEN URINE NEGATIVE (NEGATIVE); BENZODIAZEPINES SCREEN URINE NEGATIVE (NEGATIVE); CANNABINOID SCREEN, URINE POSITIVE (NEGATIVE); COCAINE SCREEN URINE NEGATIVE (NEGATIVE); METHADONE STAT NEGATIVE (NEGATIVE); OPIATE SCREEN URINE NEGATIVE (NEGATIVE); OXYCODONE STAT NEGATIVE (NEGATIVE); PROPOXYPHENE STAT NEGATIVE (NEGATIVE); TRICYCLIC ANTIDEPRESSANTS SCRE NEGATIVE (NEGATIVE)
[2022-01-12] MEDS ORDERED: RX-NITROFURANTOIN 100 MG (MACROBID) CAP PPK#2 PO STA (19:11)
[2022-01-12] MEDS ORDERED: KETO10TA PO (19:14)
[2022-01-12] MEDS ORDERED: NITR-65 PO (19:14)
[2022-01-12] MEDS ORDERED: PHEN-640 PO (19:14)
[2022-01-12] MEDS ORDERED: PHENAZOPYRIDINE 100 MG (PYRIDIUM) TABLET PO ONE (19:15)
[2022-01-12 19:42] VITALS: BP 113/59
== END 2022-01-12 19:42 | disposition home or self-care (01) ==
LOC: EDUNIT# 18:13 → ER 18:15
DX: N39.0 Urinary tract infection, site not specified (principal); G89.29 Other chronic pain; M54.50 Low back pain, unspecified; E66.9 Obesity, unspecified; F17.210 Nicotine dependence, cigarettes, uncomplicated; Z68.31 Body mass index [BMI] 31.0-31.9, adult; Z88.5 Allergy status to narcotic agent
CPT/HCPCS: 80306; 81000; 87088; 99283

== ENCOUNTER 2022-05-01 19:13 | Emergency (ER) | payer OTHER ==
[~2022-05-01] VITALS: Ht 175 cm; Wt 106.5 kg
[~2022-05-01 19:13] MED LIST changes: +ALBU8.5H6 IH; +KETO10TA PO; +PHEN-640 PO
--- NOTE | 2022-05-01 20:29 | ED Cough/URI ---
General Chief Complaint: Cough/Cold/Flu Symptoms Stated Complaint: CHEST HEAVINESS,COUGH,SOA Nursing Triage Note: PT AMB TO TRIAGE WITH C/O COUGH FOR TWO WEEKS. PT THINKS SHE HAS PNUMONIA Source: patient Exam Limitations: no limitations History of Present Illness Date Seen by Provider: May 01, 2022 Allergies and Home Medications Allergies Coded Allergies: methocarbamol (Unverified Allergy, Unknown, 03/02/20) fentanyl (Verified Adverse Reaction, Unknown, 03/02/20) Patient Home Medication List Albuterol Sulfate (Ventolin Hfa) 1 Puff Puff, 2 PUFF IH Q4H PRN for SHORTNESS OF BREATH, (Reported) Entered as Reported by: SUHA OLIVER on 01/31/21 1325 Albuterol Sulfate (Albuterol Sulfate) 2.5 Mg/3 Ml (0.083 %) Vial.neb, 2.5 MG INH Q4H PRN for WHEEZING Prescribed by: MARY WEST on 05/01/22 2119 Amoxicillin/Potassium Clav (Augmentin 875-125 Tablet) 1 Each Tablet, 1 EACH PO BID Prescribed by: LARON CHRISTOPHER on 02/02/21 1115 Amoxicillin/Potassium Clav (Augmentin 875-125 Tablet) 1 Each Tablet, 1 EACH PO BID Prescribed by: MYRA DONATO on 11/03/21 0439 Brexpiprazole (Rexulti) 2 Mg Tablet, 2 MG PO HS, (Reported) Entered as Reported by: JOSE R JAMES on 05/10/17 2105 Buspirone HCl (Buspirone HCl) 30 Mg Tablet, 30 MG PO BID, (Reported) Entered as Reported by: SUHA OLIVER on 01/31/21 1334 Cephalexin (Cephalexin) 500 Mg Tablet, 500 MG PO BID Prescribed by: SELENA STERN on 11/28/21 224 Dicyclomine HCl (Dicyclomine HCl) 20 Mg Tablet, 20 MG PO QID Prescribed by: SELENA STERN on 11/28/21 224 Escitalopram Oxalate (Escitalopram Oxalate) 20 Mg Tablet, 20 MG PO HS, (Reported) Entered as Reported by: SUHA OLIVER on 01/31/21 1325 Eszopiclone (Lunesta) 2 Mg Tablet, 2 MG PO HS, (Reported) Entered as Reported by: SUHA OLIVER on 01/31/21 1325 Hydrocodone/Acetaminophen (Hydrocodone-Acetamin 5-325 mg) 5 Mg-325 Mg Tablet, 1 TAB PO Q4H PRN for PAIN-MODERATE (5-7) Prescribed by: SELENA STERN on 12/26/212212 Hydrocodone/Acetaminophen (Hydrocodone-Acetamin 5-325 mg) 5 Mg-325 Mg Tablet, 1 TAB PO Q6H PRN for PAIN-MODERATE (5-7) Prescribed by: MARY WEST on 01/01/22 1722 Ibuprofen (Ibuprofen) 200 Mg Tablet, 400-600 MG PO Q8H PRN for PAIN-MILD (1-4), (Reported) Entered as Reported by: SUHA OLIVER on 01/31/21 132 Ketorolac Tromethamine (Ketorolac Tromethamine) 10 Mg Tablet, 10 MG PO Q6H Prescribed by: VIDAL GALEANA on 01/12/221913 Levothyroxine Sodium (Levothyroxine Sodium) 125 Mcg Tablet, 125 MCG PO HS, (R eported) Entered as Reported by: SUHA OLIVER on 01/31/21 132 Lisinopril (Lisinopril) 2.5 Mg Tablet, 2.5 MG PO HS, (Reported) Entered as Reported by: SUHA OLIVER on 01/31/21 132 Lovastatin (Lovastatin) 20 Mg Tablet, 20 MG PO HS, (Reported) Entered as Reported by: SUHA OLIVER on 01/31/21 132 Metformin HCl (Metformin HCl ER) 500 Mg Tab.er.24h, 500 MG PO BID, (Reported) Entered as Reported by: JOSE R JAMES on 05/10/172104 Methylprednisolone (Medrol Dose pack) 4 Mg Tab, 4 MG PO UD Prescribed by: SELENA STERN on 12/26/212212 Nabumetone (Nabumetone) 500 Mg Tablet, 500 MG PO BID, (Reported) Entered as Reported by: SUHA OLIVER on 01/31/21 132 Nitrofurantoin Monohyd/M-Cryst (Macrobid 100 mg Capsule) 100 Mg Capsule, 1 TAB PO BID Prescribed by: VIDAL GALEANA on 01/12/221913 Phenazopyridine HCl (Pyridium) 200 Mg Tablet, 1 TAB PO TID Prescribed by: VIDAL GALEANA on 01/12/221913 Tizanidine HCl (Tizanidine HCl) 4 Mg Tablet, 4 TAB PO TID, (Reported) Entered as Reported by: JOSE R JAMES on 12/25/15 0201 Past Zybccxh-Nlzymg-Adblkt Hx Patient Social History Tobacco Use?: Yes Substance use?: Yes Substance type: Marijuana Alcohol Use?: No Pt feels they are or have been: No Immunizations Up To Date Tetanus Booster (TDap): Unknown Influenza Vaccine Up-to-Date: No; Not Current First/Initial COVID19 Vaccinat: 2020 Second COVID19 Vaccination Joshua: 2020 Third COVID19 Vaccination Date: 2020 Seasonal Allergies Seasonal Allergies: No Past Medical History Surgery/Hospitalization HX: COPD, HLD, DM, HYPOTHYROID HYSTERECTOMY, PREVIOUS TRACH AND CHEST TUBE, ARM Surgeries: Yes (SEE BELOW) Gallbladder, Hysterectomy, Oophorectomy, Orthopedic, Tracheostomy Respiratory: Yes (R LUNG BX;BILAT CHEST TUBES-PNEUMONIA W/VENT W/ TRACH 1995;O2 AT 2L/NC ) Asthma, Pneumonia, Chronic Bronchitis, Sleep Apnea, COPD Currently Using CPAP: No Currently Using BIPAP: No Cardiac: Yes High Cholesterol, Hypertension Neurological: Yes (lumbar neural foraminal stenosis) Headaches /Migraines, Seizure Disorder 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 No Pertinent Family Hx SOCIAL HISTORY: -SMOKES 1 PPD -ETOH--OCCASIONAL USE -DRUGS-DAILY MARIJUANA USE PSH: -RIGHT ARM FX/ORIF--RODS/SCREWS -BILATERAL CHEST TUBES AND TRACHEOSTOMY FOR PNEUMONIA -RIGHT LUNG BIOPSY -DENTAL SURGERY -SPINAL CORD STIMULATOR 2015 -HYSTERECTOMY/LEFT SALPINGO-OOPHORECTOMY -CHOLECYSTECTOMY -COLONOSCOPY 09/2015-NORMAL Physical Exam Vital Signs - First Documented 12/21/22 12/21/22 19:33 19:40 Temp 36.9 Pulse 74 Resp 20 B/P (MAP) 94/62 (73) O2 Delivery Room Air Capillary Refill : Height: 5'9.00" Weight: 247lbs. 0.0oz. 112.961653vv; 34.00 BMI Method:Actual Progress/Results/Core Measures Suspected Sepsis SIRS Temperature: Pulse: 74 Respiratory Rate: 20 Blood Pressure 94 /62 Mean: 73 Results/Orders Lab Results Laboratory Tests Test 05/01/22 19:40 Range/Units Influenza Type A (RT-PCR) Not Detected Not Detecte Influenza Type B (RT-PCR) Not Detected Not Detecte SARS-CoV-2 RNA (RT-PCR) Not Detected Not Detecte My Orders Orders - MARY WEST DOUGHMAKER Covid 19 Inhouse Test (05/01/22 19:41) Influenza A And B By Pcr (05/01/22 19:41) Chest Pa/Lat (2 View) (05/01/22 20:25) Vital Signs/I&O 05/01/22 05/01/22 19:33 19:40 Temp 36.9 Pulse 74 Resp 20 B/P (MAP) 94/62 (73) O2 Delivery Room Air Capillary Refill : Blood Pressure Mean: 73 Departure Impression Primary Impression: Pneumonia Disposition: 01 HOME, SELF-CARE Condition: Improved Departure-Patient Inst. Decision time for Depature: 21:18 Referrals: SUHA ROBLEDO DO (PCP/Family) Primary Care Physician Patient Instructions: Acute Bronchitis, Adult (DC) Add. Discharge Instructions: Plan: 1. Follow-up with your primary care provider for persistent symptoms. 2. Use albuterol 2 puffs of your inhaler every 4 hours as needed or use your nebulizer every 4 hours as needed. 3. Make sure you are drinking plenty of fluids to stay hydrated, you can take [id number] cough medicine as directed per package. 4. Return to the ER for any new, concerning, worsening symptoms. All discharge instructions reviewed with patient and/or family. Voiced understanding. Scripts Doxycycline Hyclate (Doxycycline Hyclate) 100 Mg Tablet 100 MG PO BID for 10 Days, #20 TAB 0 Refills Prov: MARY WEST APRN 05/01/22 Albuterol Sulfate (Albuterol Sulfate) 2.5 Mg/3 Ml (0.083 %) Vial.neb 2.5 MG INH Q4H PRN for WHEEZING, #50 EA 0 Refills Prov: MARY WEST DOUGHMAKER 05/01/22 MARY WEST APRN May 01, 2022 20:28
[2022-05-01] MEDS ORDERED: ALBU2.5V4 INH (21:19)
--- NOTE | 2022-05-01 21:20 | Diagnostic Imaging Report ---
Chest PA/LAT (2 view) Indication: Cough. Comparison: 04/14/2019. Findings: Ill-defined nodular opacity in the right lung base. Otherwise, lungs are clear. No pleural effusion or pneumothorax. Normal heart size and mediastinal contours. Impression: Right basilar nodular airspace opacity is likely due to pneumonia. Advise followup PA and lateral chest radiographs in 4 weeks after appropriate medical management to ensure resolution. Dictated by: Dictated on workstation # [id number]
[2022-05-01] MEDS ORDERED: DOXY100T2 PO (21:23)
[2022-05-01 21:27] VITALS: BP 112/62
[2022-05-01] MEDS ORDERED: DOXYCYCLINE 100 MG (VIBRAMYCIN) TABLET PO ONE (21:30)
== END 2022-05-01 21:27 | disposition home or self-care (01) ==
LOC: EDUNIT# 19:13 → ER 19:15
DX: J18.9 Pneumonia, unspecified organism (principal); F17.210 Nicotine dependence, cigarettes, uncomplicated; E66.9 Obesity, unspecified; Z68.34 Body mass index [BMI] 34.0-34.9, adult; Z20.822 Contact with and (suspected) exposure to COVID-19
CPT/HCPCS: 71046; 87636

== ENCOUNTER 2022-07-14 17:42 | Emergency (ER) | payer OTHER ==
[~2022-07-14] VITALS: Ht 175.3 cm; Wt 106.5 kg
[~2022-07-14 17:42] MED LIST changes: +ALBU2.5V4 INH; +DOXY100T2 PO
--- NOTE | 2022-07-14 18:30 | ED Back Pain ---
General Chief Complaint: Back Problems Stated Complaint: RIGHT HIP PAIN Nursing Triage Note: PT AMB TO [facility] 6 WITH COMPLAINT OF RIGHT HIP PAIN THAT RADIATES DOWN LEG. HAS BEEN GOING ON FOR OVER A WEEK. SHE HAS NOT BEEN SEEN FOR PAIN, BUT DOES HAVE A PAIN MANAGEMENT APPT TOMORROW. TAKES TIZANIDINE DAILY, WITH NO RELIEF. History of Present Illness Date Seen by Provider: Jul 14, 2022 Time Seen by Provider: 18:10 Initial Comments 46 year old presents for chronic back pain, with radicular symptoms right leg. She has had multiple studies in the past and this is a longstanding problem. She sees Dr. Robledo at [facility] and a pain specialist in [place]. She has had 2 spinal injections so far with minimal to no improvement. She has appointments with both providers later this week. She denies any new injuries or complaints. She tried ibuprofen 800 mg with no improvement in her symptoms. She only has a muscle relaxant at home. She does not have a pain contract with either doctor. Location: Lumbar Spine, Paraspinous Muscles Timing/Duration: Getting Worse, Intermittent Severity: Moderate Pain/Injury Location: Back Associated Symptoms: muscle spasms; No numbness in legs/feet, No tingling in legs/feet, No sensory/motor loss; lower back pain; No loss of bladder control, No loss of bowel control Allergies and Home Medications Allergies Coded Allergies: methocarbamol (Unverified Allergy, Unknown, 03/02/20) acetaminophen (Verified Adverse Reaction, Unknown, nausea, 07/14/22) fentanyl (Verified Adverse Reaction, Unknown, 03/02/20) Patient Home Medication List Home Medication List Reviewed: Yes Albuterol Sulfate (Ventolin Hfa) 1 Puff Puff, 2 PUFF IH Q4H PRN for SHORTNESS OF BREATH, (Reported) Entered as Reported by: SUHA OLIVER on 01/31/21 1325 Albuterol Sulfate (Albuterol Sulfate) 2.5 Mg/3 Ml (0.083 %) Vial.neb, 2.5 MG INH Q4H PRN for WHEEZING Prescribed by: MARY WEST on 05/01/22 2119 Amoxicillin/Potassium Clav (Augmentin 875-125 Tablet) 1 Each Tablet, 1 EACH PO BID Prescribed by: LARON CHRISTOPHER on 02/02/21 1115 Amoxicillin/Potassium Clav (Augmentin 875-125 Tablet) 1 Each Tablet, 1 EACH PO BID Prescribed by: MYRA DONATO on 11/03/21 0439 Brexpiprazole (Rexulti) 2 Mg Tablet, 2 MG PO HS, (Reported) Entered as Reported by: JOSE R JAMES on 05/10/172104 Buspirone HCl (Buspirone HCl) 30 Mg Tablet, 30 MG PO BID, (Reported) Entered as Reported by: SUHA OLIVER on 01/31/21 1334 Cephalexin (Cephalexin) 500 Mg Tablet, 500 MG PO BID Prescribed by: SELENA STERN on 11/28/212242 Dicyclomine HCl (Dicyclomine HCl) 20 Mg Tablet, 20 MG PO QID Prescribed by: SELENA STERN on 11/28/212242 Doxycycline Hyclate (Doxycycline Hyclate) 100 Mg Tablet, 100 MG PO BID Prescribed by: MARY WEST on 05/01/222122 Escitalopram Oxalate (Escitalopram Oxalate) 20 Mg Tablet, 20 MG PO HS, (Reported) Entered as Reported by: SUHA OLIVER on 01/31/21 1325 Eszopiclone (Lunesta) 2 Mg Tablet, 2 MG PO HS, (Reported) Entered as Reported by: SUHA OLIVER on 01/31/21 1325 Hydrocodone/Acetaminophen (Hydrocodone-Acetamin 5-325 mg) 5 Mg-325 Mg Tablet, 1 TAB PO Q4H PRN for PAIN-MODERATE (5-7) Prescribed by: SELENA STERN on 12/26/21 2213 Hydrocodone/Acetaminophen (Hydrocodone-Acetamin 5-325 mg) 5 Mg-325 Mg Tablet, 1 TAB PO Q6H PRN for PAIN-MODERATE (5-7) Prescribed by: MARY WEST on 01/01/22 1722 Ibuprofen (Ibuprofen) 200 Mg Tablet, 400-600 MG PO Q8H PRN for PAIN-MILD (1-4), (Reported) Entered as Reported by: SUHA OLIVER on 01/31/21 1325 Ketorolac Tromethamine (Ketorolac Tromethamine) 10 Mg Tablet, 10 MG PO Q6H [place] [address] Levothyroxine Sodium (Levothyroxine Sodium) 125 Mcg Tablet, 125 MCG PO HS, (Reported) Entered as Reported by: SUHA OLIVER on 01/31/21 132 Lisinopril (Lisinopril) 2.5 Mg Tablet, 2.5 MG PO HS, (Reported) Entered as Reported by: SUHA OLIVER on 01/31/21 132 Lovastatin (Lovastatin) 20 Mg Tablet, 20 MG PO HS, (Reported) Entered as Reported by: SUHA OLIVER on 01/31/21 1325 Metformin HCl (Metformin HCl ER) 500 Mg Tab.er.24h, 500 MG PO BID, (Reported) Entered as Reported by: JOSE R JAMES on 05/10/172104 Methylprednisolone (Medrol Dose pack) 4 Mg Tab, 4 MG PO UD Prescribed by: SELENA STERN on 12/26/212212 Nabumetone (Nabumetone) 500 Mg Tablet, 500 MG PO BID, (Reported) Entered as Reported by: SUHA OLIVER on 01/31/21 132 Nitrofurantoin Monohyd/M-Cryst (Macrobid 100 mg Capsule) 100 Mg Capsule, 1 TAB PO BID Prescribed by: VIDAL GALEANA on 01/12/221913 Phenazopyridine HCl (Pyridium) 200 Mg Tablet, 1 TAB PO TID Prescribed by: VIDAL GALEANA on 01/12/221913 Tizanidine HCl (Tizanidine HCl) 4 Mg Tablet, 4 TAB PO TID, (Reported) Entered as Reported by: JOSE R JAMES on 12/25/157 Review of Systems Constitutional: no symptoms reported, see HPI Musculoskeletal: see HPI, back pain All Other Systems Reviewed Negative Unless Noted: Yes Past Icgeotu-Dapefy-Ijpunb Hx Patient Social History Tobacco Use?: Yes Tobacco type used: Cigarettes Smoking Status: Current Everyday Smoker Use of E-Cig and/or Vaping dev: No Substance use?: Yes Substance type: Marijuana Alcohol Use?: No Pt feels they are or have been: No Immunizations Up To Date Tetanus Booster (TDap): Unknown First/Initial COVID19 Vaccinat: 2020 Second COVID19 Vaccination Joshua: 2020 Third COVID19 Vaccination Date: 2020 Seasonal Allergies Seasonal Allergies: No Past Medical History Surgery/Hospitalization HX: COPD, HLD, DM, HYPOTHYROID HYSTERECTOMY, PREVIOUS TRACH AND CHEST TUBE, ARM Surgeries: Yes (SEE BELOW) Gallbladder, Hysterectomy, Oophorectomy, Orthopedic, Tracheostomy Respiratory: Yes (R LUNG BX;BILAT CHEST TUBES-PNEUMONIA W/VENT W/ TRACH 1995;O2 AT 2L/NC ) Asthma, Pneumonia, Chronic Bronchitis, Sleep Apnea, COPD Currently Using CPAP: No Currently Using BIPAP: No Cardiac: Yes High Cholesterol, Hypertension Neurological: Yes (lumbar neural foraminal stenosis) Headaches /Migraines, Seizure Disorder 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 No Pertinent Family Hx SOCIAL HISTORY: -SMOKES 1 PPD -ETOH--OCCASIONAL USE -DRUGS-DAILY MARIJUANA USE PSH: -RIGHT ARM FX/ORIF--RODS/SCREWS -BILATERAL CHEST TUBES AND TRACHEOSTOMY FOR PNEUMONIA -RIGHT LUNG BIOPSY -DENTAL SURGERY -SPINAL CORD STIMULATOR 2015 -HYSTERECTOMY/LEFT SALPINGO-OOPHORECTOMY -CHOLECYSTECTOMY -COLONOSCOPY 09/2015-NORMAL Physical Exam Vital Signs Vital Signs - First Documented 07/14/22 17:59 Pulse 73 Resp 16 B/P (MAP) 119/62 (81) Pulse Ox 97 O2 Delivery Room Air Capillary Refill : Less Than 3 Seconds Height, Weight, BMI Height: 5'9.00" Weight: 247lbs. 0.0oz. 112.397749hx; 34.00 BMI Method:Actual General Appearance: No Apparent Distress, WD/WN Cardiovascular: Regular Rate, Rhythm, No Edema, No Gallop, No Murmur, Normal Peripheral Pulses Respiratory: Chest Non Tender, Lungs Clear Back: Normal Inspection, Decreased Range of Motion (Secondary to pain); No Vertebral Tenderness; Other (Power V/V L4-S1. Positive SLR on right, neg on left. Ambulates with steady gait. ) Neurologic/Psychiatric: Alert, Oriented x3, No Motor/Sensory Deficits, Normal Mood/Affect Skin: Normal Color, Warm/Dry Progress/Results/Core Measures Results/Orders My Orders Orders - MARKUS VARGAS Rx-Tramadol Hcl (Rx-Ultram) (07/14/22 18:25) Tramadol Tablet (Ultram Tablet) (07/14/22 18:25) Vital Signs/I&O 07/14/22 17:59 Pulse 73 Resp 16 B/P (MAP) 119/62 (81) Pulse Ox 97 O2 Delivery Room Air Blood Pressure Mean: 81 Departure Impression Primary Impression: Lumbar radiculopathy Additional Impressions: Chronic back pain Qualified Codes: M54.41 - Lumbago with sciatica, right side; G89.29 - Other chronic pain Back pain Qualified Codes: M54.41 - Lumbago with sciatica, right side; G89.29 - Other chronic pain Disposition: 01 HOME, SELF-CARE Condition: Improved Departure-Patient Inst. Decision time for Depature: 18:15 Referrals: SUHA ROBLEDO DO (PCP/Family) Primary Care Physician Patient Instructions: Radiculopathy (DC), Low Back Pain (DC) Add. Discharge Instructions: Alternate heat and ice on your low back. Take ibuprofen 800 mg every 8 hours with food Use the tramadol every 6-8 hours for pain not relieved by the ibuprofen. Keep your scheduled appointments with the bridge painter helper and Dr. Robledo for this week. Activity as tolerated. Return to the emergency department for new, urgent healthcare problems. All discharge instructions reviewed with patient and/or family. Voiced understanding. Copy Copies To 1: SUHA ROBLEDO AMY ARNP Jul 14, 2022 18:30
[2022-07-14 18:37] VITALS: BP 119/62
== END 2022-07-14 18:37 | disposition home or self-care (01) ==
LOC: EDUNIT# 17:42 → ER 17:44
DX: M54.16 Radiculopathy, lumbar region (principal); G89.29 Other chronic pain; F17.210 Nicotine dependence, cigarettes, uncomplicated; E66.9 Obesity, unspecified; J18.9 Pneumonia, unspecified organism; Z99.81 Dependence on supplemental oxygen; Z93.0 Tracheostomy status; Z88.6 Allergy status to analgesic agent; Z68.34 Body mass index [BMI] 34.0-34.9, adult
CPT/HCPCS: 99283

== ENCOUNTER 2022-08-25 11:10 | Emergency (ER) | payer MEDICAID ==
[~2022-08-25] VITALS: Ht 175 cm; Wt 115.6 kg
[2022-08-25] MEDS ORDERED: ORPHENADRINE 60 MG/2 ML (NORFLEX) AMP (ED ONLY) IM ONE (11:45)
[2022-08-25] MEDS ORDERED: KETOROLAC 60 MG/2 ML VIAL IM ONE (11:45)
[2022-08-25] MEDS ORDERED: morphine INJ 10 MG/ML 1ML (SYR OR VIAL) IM STA (11:48)
--- NOTE | 2022-08-25 11:55 | ED Back Pain ---
General Chief Complaint: Back Problems Stated Complaint: BACK PAIN Nursing Triage Note: pt presents to ed with complaints of r lower back pain that radiates down r leg since . Source of Information: Patient Exam Limitations: No Limitations History of Present Illness Date Seen by Provider: Aug 25, 2022 Time Seen by Provider: 11:30 Initial Comments 46-year-old female presents the ED for complaints of chronic back pain. She states she has been dealing with chronic back pain for 15 years. She has a history of degenerative disease of the spine which was shown on CT and MRI which were completed in December 2021. She reports that starting the pain has become worse. She reports everything hurts, any movement hurts, she is unable to get comfortable. Reports she has tried heating pads, and her Lyrica and tizanidine which are not helping. She reports numbness and tingling in both of her legs which is chronic for the last 2 years, but she feels as though it is worse since . She reports that her entire right leg and upper left leg is numb and tingling. She denies any bowel or bladder incontinence. She is able to walk, but reports pain with walking. She has an appointment with a neuro spine doctor on 09/06 to discuss surgery options. Allergies and Home Medications Allergies Coded Allergies: methocarbamol (Unverified Allergy, Unknown, 03/02/20) acetaminophen (Verified Adverse Reaction, Unknown, nausea, 07/14/22) fentanyl (Verified Adverse Reaction, Unknown, 03/02/20) Patient Home Medication List Home Medication List Reviewed: Yes Albuterol Sulfate (Ventolin Hfa) 1 Puff Puff, 2 PUFF IH Q4H PRN for SHORTNESS OF BREATH, (Reported) Entered as Reported by: SUHA OLIVER on 01/31/21 1325 Albuterol Sulfate (Albuterol Sulfate) 2.5 Mg/3 Ml (0.083 %) Vial.neb, 2.5 MG INH Q4H PRN for WHEEZING Prescribed by: MARY WEST on 05/01/22 2119 Amoxicillin/Potassium Clav (Augmentin 875-125 Tablet) 1 Each Tablet, 1 EACH PO BID Prescribed by: LARON CHRISTOPHER on 02/02/21 1115 Amoxicillin/Potassium Clav (Augmentin 875-125 Tablet) 1 Each Tablet, 1 EACH PO BID Prescribed by: MYRA DONATO on 11/03/21 0439 Brexpiprazole (Rexulti) 2 Mg Tablet, 2 MG PO HS, (Reported) Entered as Reported by: JOSE R JAMES on 05/10/172104 Buspirone HCl (Buspirone HCl) 30 Mg Tablet, 30 MG PO BID, (Reported) Entered as Reported by: SUHA OLIVER on 01/31/21 1334 Cephalexin (Cephalexin) 500 Mg Tablet, 500 MG PO BID Prescribed by: SELENA STERN on 11/28/212242 Dicyclomine HCl (Dicyclomine HCl) 20 Mg Tablet, 20 MG PO QID Prescribed by: SELENA STERN on 11/28/212242 Doxycycline Hyclate (Doxycycline Hyclate) 100 Mg Tablet, 100 MG PO BID Prescribed by: MARY WEST on 05/01/222122 Escitalopram Oxalate (Escitalopram Oxalate) 20 Mg Tablet, 20 MG PO HS, (Reported) Entered as Reported by: SUHA OLIVER on 01/31/21 1325 Eszopiclone (Lunesta) 2 Mg Tablet, 2 MG PO HS, (Reported) Entered as Reported by: SUHA OLIVER on 01/31/21 1325 Hydrocodone/Acetaminophen (Hydrocodone-Acetamin 5-325 mg) 5 Mg-325 Mg Tablet, 1 TAB PO Q4H PRN for PAIN-MODERATE (5-7) Prescribed by: SELENA STERN on 12/26/21 2213 Hydrocodone/Acetaminophen (Hydrocodone-Acetamin 5-325 mg) 5 Mg-325 Mg Tablet, 1 TAB PO Q6H PRN for PAIN-MODERATE (5-7) Prescribed by: MARY WEST on 01/01/22 1722 Hydrocodone/Acetaminophen (Hydrocodone-Acetamin 5-325 mg) 5 Mg-325 Mg Tablet, 1 TAB PO Q4H PRN for PAIN-MODERATE (5-7) Prescribed by: Sada Dahl on 08/25/22 1242 Ibuprofen (Ibuprofen) 200 Mg Tablet, 400-600 MG PO Q8H PRN for PAIN-MILD (1-4), (Reported) Entered as Reported by: SUHA OLIVER on 01/31/21 1325 Ketorolac Tromethamine (Ketorolac Tromethamine) 10 Mg Tablet, 10 MG PO Q6H Prescribed by: VIDAL GALEANA on 01/12/221913 Levothyroxine Sodium (Levothyroxine Sodium) 125 Mcg Tablet, 125 MCG PO HS, (Reported) Entered as Reported by: SUHA OLIVER on 01/31/21 132 Lisinopril (Lisinopril) 2.5 Mg Tablet, 2.5 MG PO HS, (Reported) Entered as Reported by: SUHA OLIVER on 01/31/21 132 Lovastatin (Lovastatin) 20 Mg Tablet, 20 MG PO HS, (Reported) Entered as Reported by: SUHA OLIVER on 01/31/21 132 Metformin HCl (Metformin HCl ER) 500 Mg Tab.er.24h, 500 MG PO BID, (Reported) Entered as Reported by: JOSE R JAMES on 05/10/172104 Methylprednisolone (Medrol Dose pack) 4 Mg Tab, 4 MG PO UD Prescribed by: SELENA STERN on 12/26/21 221 Methylprednisolone (Methylprednisolone Dose Pack) 4 Mg Tab.ds.pk, 4 MG PO UD Prescribed by: Sada Dahl on 08/25/22 1241 Nabumetone (Nabumetone) 500 Mg Tablet, 500 MG PO BID, (Reported) Entered as Reported by: SUHA OLIVER on 01/31/21 132 Nitrofurantoin Monohyd/M-Cryst (Macrobid 100 mg Capsule) 100 Mg Capsule, 1 TAB PO BID Prescribed by: VIDAL GALEANA on 01/12/221913 Phenazopyridine HCl (Pyridium) 200 Mg Tablet, 1 TAB PO TID Prescribed by: VIDAL GALEANA on 01/12/221913 Tizanidine HCl (Tizanidine HCl) 4 Mg Tablet, 4 TAB PO TID, (Reported) Entered as Reported by: JOSE R JAMES on 12/25/157 Review of Systems Constitutional: no symptoms reported Musculoskeletal: back pain, other (Numbness and tingling in bilateral legs) Past Ndbxylu-Rgryky-Rdazfc Hx Patient Social History Tobacco Use?: Yes Tobacco type used: Cigarettes Smoking Status: Current Everyday Smoker Substance use?: Yes Substance type: Marijuana Alcohol Use?: No Pt feels they are or have been: No Immunizations Up To Date Tetanus Booster (TDap): Unknown First/Initial COVID19 Vaccinat: 2020 Second COVID19 Vaccination Joshua: 2020 Third COVID19 Vaccination Date: 2020 Seasonal Allergies Seasonal Allergies: No Past Medical History Surgery/Hospitalization HX: COPD, HLD, DM, HYPOTHYROID HYSTERECTOMY, PREVIOUS TRACH AND CHEST TUBE, ARM Surgeries: Yes (SEE BELOW) Gallbladder, Hysterectomy, Oophorectomy, Orthopedic, Tracheostomy Respiratory: Yes (R LUNG BX;BILAT CHEST TUBES-PNEUMONIA W/VENT W/ TRACH 1995;O2 AT 2L/NC ) Asthma, Pneumonia, Chronic Bronchitis, Sleep Apnea, COPD Currently Using CPAP: No Currently Using BIPAP: No Cardiac: Yes High Cholesterol, Hypertension Neurological: Yes (lumbar neural foraminal stenosis) Headaches /Migraines, Seizure Disorder Reproductive Disorders: Yes RN WOUND CARE History: Hysterectomy, 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 No Pertinent Family Hx SOCIAL HISTORY: -SMOKES 1 PPD -ETOH--OCCASIONAL USE -DRUGS-DAILY MARIJUANA USE PSH: -RIGHT ARM FX/ORIF--RODS/SCREWS -BILATERAL CHEST TUBES AND TRACHEOSTOMY FOR PNEUMONIA -RIGHT LUNG BIOPSY -DENTAL SURGERY -SPINAL CORD STIMULATOR 2015 -HYSTERECTOMY/LEFT SALPINGO-OOPHORECTOMY -CHOLECYSTECTOMY -COLONOSCOPY 09/2015-NORMAL Physical Exam Vital Signs Vital Signs - First Documented 08/25/22 11:32 Temp 36.2 Pulse 69 Resp 18 B/P (MAP) 111/66 (81) Pulse Ox 96 Capillary Refill : Less Than 3 Seconds Height, Weight, BMI Height: 5'9.00" Weight: 247lbs. 0.0oz. 112.118360ys; 37.00 BMI Method:Actual General Appearance: No Apparent Distress, WD/WN Neck: Normal Inspection, Supple Cardiovascular: Regular Rate, Rhythm, No Edema, No Gallop, No JVD, No Murmur Respiratory: Lungs Clear, Normal Breath Sounds, No Accessory Muscle Use, No Respiratory Distress Back: Vertebral Tenderness, Other (Muscle tenderness bilateral lower back, worse on right) Extremity: Normal Inspection Neurologic/Psychiatric: Alert, Normal Mood/Affect Skin: Normal Color, Warm/Dry Progress/Results/Core Measures Results/Orders My Orders Orders - SADA DAHL APRN Ketorolac Injection (Toradol Injection) (08/25/22 11:45) Orphenadrine Inj (Ed Only) (Norflex Inje (08/25/22 11:45) Dexamethasone Injection (Decadron Inje (08/25/22 11:45) Morphine Injection (Morphine Injection (08/25/22 11:48) Medications Given in ED Current Medications Medications Dose Ordered Sig/Bridgette Route Start Time Stop Time Status Last Admin Dose Admin Dexamethasone Sodium Phosphate 8 mg ONCE ONCE IM 08/25/22 11:45 08/25/22 11:46 DC 08/25/22 12:05 8 MG Ketorolac Tromethamine 30 mg ONCE ONCE IM 08/25/22 11:45 08/25/22 11:46 DC 08/25/22 12:05 30 MG Orphenadrine Citrate 60 mg ONCE ONCE IM 08/25/22 11:45 08/25/22 11:46 DC 08/25/22 12:05 60 MG Vital Signs/I&O 08/25/22 08/25/22 11:32 12:47 Temp 36.2 36.2 Pulse 69 69 Resp 18 18 B/P (MAP) 111/66 (81) 111/66 Pulse Ox 96 96 Blood Pressure Mean: 81 Progress Progress Note : Time: 11:55 Progress Note Patient seen and evaluated, resting comfortably in recliner, no acute distress. Based on exam and symptoms, will order medications to try to improve symptoms. 1237 patient reports she is feeling better. She states she would like to go home. We will discharge her with a short course of pain medication and Medrol Dosepak. Discharge instructions and return precautions provided. Departure Impression Primary Impression: Back pain Disposition: HOME, SELF-CARE Condition: Stable Departure-Patient Inst. Decision time for Depature: 12:37 Referrals: SUHA ROBLEDO V DO (PCP/Family) Primary Care Physician Patient Instructions: Low Back Pain (DC) Add. Discharge Instructions: Take [place] as needed for pain, only take when needed, because it can cause con stipation. Take the Medrol Dosepak as prescribed. You may also take 800 mg of ibuprofen every 8 hours with food as needed for pa in. Call Dr. Robledo tomorrow to schedule a follow-up appointment for this week. Return for severe pain, inability to walk, urinary or bowel incontinence or retention, or any other new, concerning, or worsening symptoms. All discharge instructions reviewed with patient and/or family. Voiced understanding. Scripts Hydrocodone/Acetaminophen (Hydrocodone-Acetamin 5-325 mg) 5 Mg-325 Mg Tablet 1 TAB PO Q4H PRN for PAIN-MODERATE (5-7), #15 TAB 0 Refills Prov: SADA DAHL APRN 08/25/22 Methylprednisolone (Methylprednisolone Dose Pack) 4 Mg Tab.ds.pk 4 MG PO UD for 6 Days, #21 PKG 0 Refills PER DOSE PACK INSTRUCTIONS Prov: SADA DAHL APRN 08/25/22 SADA DAHL APRN Aug 25, 2022 11:55
[2022-08-25] MEDS ORDERED: METH4TAB10 PO (12:41)
[2022-08-25] MEDS ORDERED: ACHD5005 PO (12:41)
[2022-08-25 12:47] VITALS: BP 111/66
== END 2022-08-25 12:47 | disposition home or self-care (01) ==
LOC: EDUNIT# 11:10 → ER 11:13
DX: M54.50 Low back pain, unspecified (principal); F17.210 Nicotine dependence, cigarettes, uncomplicated; J44.9 Chronic obstructive pulmonary disease, unspecified; Z99.81 Dependence on supplemental oxygen; Z87.39 Personal history of other diseases of the musculoskeletal system and connective tissue; Z88.5 Allergy status to narcotic agent; Z88.6 Allergy status to analgesic agent
CPT/HCPCS: 99284

== ENCOUNTER → 2022-10-01 | Outpatient (CLI) | payer MEDICAID ==
[~2022-10-01] MED LIST changes: -D-ME473S11 PO; +METH4TAB10 PO; +PROM473S15 PO
--- NOTE | 2022-10-01 17:56 | Diagnostic Imaging Report ---
PROCEDURE: MRI lumbar spine. TECHNIQUE: Multiplanar, multisequence MRI of the lumbar spine was performed without contrast. INDICATION: Low back pain, nerve root compression. COMPARISON: 01/01/2022. FINDINGS: The last well-formed disc space will be labeled L5-S1 for the purposes of this examination. Alignment is normal with no spondylolisthesis. Vertebral body heights are preserved. Disc heights are generally well preserved, although there is decreased T2 signal in some of the lower lumbar spine discs. The conus terminates in appropriate position. Soft tissues about the lumbar spine demonstrate no acute abnormality. T12-L1: No significant disc bulge. No spinal canal or foraminal stenosis. L1-L2: Mild disc bulge and facet arthropathy with ligamentous infolding. No spinal canal stenosis. No foraminal stenosis. L2-L3: Mild disc bulge with facet arthropathy and ligamentous infolding. Mild spinal canal narrowing. Mild right foraminal narrowing. No left foraminal stenosis. L3-L4: Diffuse disc bulge with facet arthropathy and ligamentous infolding. [id number] spinal canal stenosis. Mild bilateral foraminal narrowing. L4-L5: Diffuse disc bulge with facet arthropathy and ligamentous infolding. Moderate spinal canal stenosis. Moderate right and mild left foraminal stenosis. L5-S1: Diffuse disc bulge with facet arthropathy and ligamentous infolding. Mild spinal canal narrowing. Mild bilateral foraminal narrowing. IMPRESSION: 1. Degenerative changes throughout the lumbar spine, as described above. There is moderate spinal canal stenosis at L4-L5. 2. Moderate right foraminal stenosis at L4-L5. Dictated by: Dictated on workstation # [id number]
== END ==
LOC: RAD 13:31
PROVIDERS: ATTEND Pediatrics
DX: M47.27 Other spondylosis with radiculopathy, lumbosacral region (principal); M48.07 Spinal stenosis, lumbosacral region; M51.17 Intervertebral disc disorders with radiculopathy, lumbosacral region
CPT/HCPCS: 72148

== ENCOUNTER 2022-11-20 18:00 | Emergency (ER) | payer MEDICAID ==
[~2022-11-20] VITALS: Ht 175 cm; Wt 123.0 kg
[2022-11-20 18:55] LABS: MONOCYTES # (AUTO) 0.6 10^3/uL (0.0-1.0)
--- NOTE | 2022-11-20 18:55 | ED Lower Extremity ---
General Chief Complaint: Lower Extremity Stated Complaint: BILAT SWELLING LEGS/FEET Nursing Triage Note: PT STATES SWELLING IN BOTH LEGS AND DECREASED URINE OUTPUT SINCE FRIDAY Source: patient Exam Limitations: no limitations History of Present Illness Date Seen by Provider: Nov 20, 2022 Time Seen by Provider: 18:10 Initial Comments 46-year-old female with past medical history of type 2 diabetes, hypothyroidism, hyperlipidemia coming in due to lower extremity swelling. Is been going on for several days, worsening, she is unclear if its worse in the night or better in the morning. Denies any redness or pain associated with it. Denies any chest pain, shortness of breath, prior history of DVT or PE, recent surgery, recent long travel, or any other concerns. She does not take any calcium channel blockers. Otherwise denying any other acute complaints other than she states she has been urinating slightly less but drinking less fluids. She had a urinalysis done on Friday reportedly at the urgent care which was negative for infection. Allergies and Home Medications Allergies Coded Allergies: methocarbamol (Unverified Allergy, Unknown, 03/02/20) acetaminophen (Verified Adverse Reaction, Unknown, nausea, 07/14/22) fentanyl (Verified Adverse Reaction, Unknown, 03/02/20) Patient Home Medication List Home Medication List Reviewed: Yes Albuterol Sulfate (Ventolin Hfa) 1 Puff Puff, 2 PUFF IH Q4H PRN for SHORTNESS OF BREATH, (Reported) Entered as Reported by: SUHA OLIVER on 01/31/21 1325 Albuterol Sulfate (Albuterol Sulfate) 2.5 Mg/3 Ml (0.083 %) Vial.neb, 2.5 MG INH Q4H PRN for WHEEZING Prescribed by: MARY WEST on 05/01/22 211 Amoxicillin/Potassium Clav (Augmentin 875-125 Tablet) 1 Each Tablet, 1 EACH PO BID Prescribed by: LARON CHRISTOPHER on 02/02/21 1115 Amoxicillin/Potassium Clav (Augmentin 875-125 Tablet) 1 Each Tablet, 1 EACH PO BID Prescribed by: MYRA DONATO on 11/03/21 0439 Brexpiprazole (Rexulti) 2 Mg Tablet, 2 MG PO HS, (Reported) Entered as Reported by: JOSE R JAMES on 05/10/17 2105 Buspirone HCl (Buspirone HCl) 30 Mg Tablet, 30 MG PO BID, (Reported) Entered as Reported by: SUHA OLIVER on 01/31/21 1334 Cephalexin (Cephalexin) 500 Mg Tablet, 500 MG PO BID Prescribed by: SELENA STERN on 11/28/21 224 Dicyclomine HCl (Dicyclomine HCl) 20 Mg Tablet, 20 MG PO QID Prescribed by: SELENA STERN on 11/28/21 224 Doxycycline Hyclate (Doxycycline Hyclate) 100 Mg Tablet, 100 MG PO BID Prescribed by: MARY WEST on 05/01/222122 Escitalopram Oxalate (Escitalopram Oxalate) 20 Mg Tablet, 20 MG PO HS, (Reported) Entered as Reported by: SUHA OLIVER on 01/31/21 132 Eszopiclone (Lunesta) 2 Mg Tablet, 2 MG PO HS, (Reported) Entered as Reported by: SUHA OLIVER on 01/31/21 1325 Hydrocodone/Acetaminophen (Hydrocodone-Acetamin 5-325 mg) 5 Mg-325 Mg Tablet, 1 TAB PO Q4H PRN for PAIN-MODERATE (5-7) Prescribed by: SELENA STERN on 12/26/21 2213 Hydrocodone/Acetaminophen (Hydrocodone-Acetamin 5-325 mg) 5 Mg-325 Mg Tablet, 1 TAB PO Q6H PRN for PAIN-MODERATE (5-7) Prescribed by: MARY WEST on 01/01/22 1722 Hydrocodone/Acetaminophen (Hydrocodone-Acetamin 5-325 mg) 5 Mg-325 Mg Tablet, 1 TAB PO Q4H PRN for PAIN-MODERATE (5-7) Prescribed by: Sada Dowd on 08/25/22 1242 Ibuprofen (Ibuprofen) 200 Mg Tablet, 400-600 MG PO Q8H PRN for PAIN-MILD (1-4), (Reported) Entered as Reported by: SUHA OLIVER on 01/31/21 1325 Ketorolac Tromethamine (Ketorolac Tromethamine) 10 Mg Tablet, 10 MG PO Q6H Prescribed by: VIDAL GALEANA on 01/12/22 191 Levothyroxine Sodium (Levothyroxine Sodium) 125 Mcg Tablet, 125 MCG PO HS, (R eported) Entered as Reported by: SUHA OLIVER on 01/31/21 1325 Lisinopril (Lisinopril) 2.5 Mg Tablet, 2.5 MG PO HS, (Reported) Entered as Reported by: SUHA OLIVER on 01/31/21 1325 Lovastatin (Lovastatin) 20 Mg Tablet, 20 MG PO HS, (Reported) Entered as Reported by: SUHA OLIVER on 01/31/21 1325 Metformin HCl (Metformin HCl ER) 500 Mg Tab.er.24h, 500 MG PO BID, (Reported) Entered as Reported by: JOSE R JAMES on 05/10/172104 Methylprednisolone (Medrol Dose pack) 4 Mg Tab, 4 MG PO UD Prescribed by: SELENA STERN on 12/26/212212 Methylprednisolone (Methylprednisolone Dose Pack) 4 Mg Tab.ds.pk, 4 MG PO UD Prescribed by: Sada Dowd on 08/25/22 1241 Nabumetone (Nabumetone) 500 Mg Tablet, 500 MG PO BID, (Reported) Entered as Reported by: SUHA OLIVER on 01/31/21 132 Nitrofurantoin Monohyd/M-Cryst (Macrobid 100 mg Capsule) 100 Mg Capsule, 1 TAB PO BID Prescribed by: VIDAL GALEANA on 01/12/221913 Phenazopyridine HCl (Pyridium) 200 Mg Tablet, 1 TAB PO TID Prescribed by: VDIAL GALEANA on 01/12/221913 Tizanidine HCl (Tizanidine HCl) 4 Mg Tablet, 4 TAB PO TID, (Reported) Entered as Reported by: JOSE R JAMES on 12/25/15 2247 Review of Systems Constitutional: No fever EENTM: no symptoms reported Respiratory: no symptoms reported Cardiovascular: no symptoms reported Gastrointestinal: no symptoms reported Genitourinary: see HPI Musculoskeletal: see HPI Skin: no symptoms reported Psychiatric/Neurological: No Symptoms Reported Past Kzbnfqa-Koyzss-Dzykcz Hx Patient Social History Tobacco Use?: Yes Tobacco type used: Cigarettes Smoking Status: Current Everyday Smoker Substance use?: Yes Substance type: Marijuana Alcohol Use?: No Immunizations Up To Date Tetanus Booster (TDap): Unknown First/Initial COVID19 Vaccinat: 2020 Second COVID19 Vaccination Joshua: 2020 Third COVID19 Vaccination Date: 2020 Seasonal Allergies Seasonal Allergies: No Past Medical History Surgery/Hospitalization HX: COPD, HLD, DM, HYPOTHYROID HYSTERECTOMY, PREVIOUS TRACH AND CHEST TUBE, ARM Surgeries: Yes (SEE BELOW) Gallbladder, Hysterectomy, Oophorectomy, Orthopedic, Tracheostomy Respiratory: Yes (R LUNG BX;BILAT CHEST TUBES-PNEUMONIA W/VENT W/ TRACH 1995;O2 AT 2L/NC ) Asthma, Pneumonia, Chronic Bronchitis, Sleep Apnea, COPD Currently Using CPAP: No Currently Using BIPAP: No Cardiac: Yes High Cholesterol, Hypertension Neurological: Yes (lumbar neural foraminal stenosis) Headaches /Migraines, Seizure Disorder 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 No Pertinent Family Hx SOCIAL HISTORY: -SMOKES 1 PPD -ETOH--OCCASIONAL USE -DRUGS-DAILY MARIJUANA USE PSH: -RIGHT ARM FX/ORIF--RODS/SCREWS -BILATERAL CHEST TUBES AND TRACHEOSTOMY FOR PNEUMONIA -RIGHT LUNG BIOPSY -DENTAL SURGERY -SPINAL CORD STIMULATOR 2015 -HYSTERECTOMY/LEFT SALPINGO-OOPHORECTOMY -CHOLECYSTECTOMY -COLONOSCOPY 09/2015-NORMAL Physical Exam Vital Signs Vital Signs - First Documented 11/20/22 18:18 Temp 36.8 Pulse 81 Resp 20 B/P (MAP) 104/60 (75) Pulse Ox 95 O2 Delivery Room Air Capillary Refill : Less Than 3 Seconds Height, Weight, BMI Height: 5'9.00" Weight: 247lbs. 0.0oz. 112.919345oh; 40.00 BMI Method:Actual General Appearance: WD/WN, no apparent distress HEENT: PERRL/EOMI, normal ENT inspection, pharynx normal Neck: non-tender, full range of motion, supple, normal inspection Cardiovascular: regular rate, rhythm, no murmur Respiratory: chest non-tender, lungs clear, normal breath sounds, no respiratory distress, no accessory muscle use Gastrointestinal: normal bowel sounds, non tender, soft; No distended, No guarding, No rebound Legs: bilateral leg other (Mild bilateral lower extremity swelling that is equal with no redness, no pain with calf squeeze, neurovascularly intact otherwise) Neurologic/Psychiatric: no motor/sensory deficits, alert, normal mood/affect Skin: normal color, warm/dry Progress/Results/Core Measures Results/Orders Lab Results Laboratory Tests Test 11/20/22 18:20 11/20/22 19:20 Range/Units White Blood Count 8.8 4.3-11.0 10^3/uL Red Blood Count 4.07 3.80-5.11 10^6/uL Hemoglobin 12.2 11.5-16.0 g/dL Hematocrit 38 35-52 % Mean Corpuscular Volume 92 80-99 fL Mean Corpuscular Hemoglobin 30 25-34 pg Mean Corpuscular Hemoglobin Concent 33 32-36 g/dL Red Cell Distribution Width 17.1 H 10.0-14.5 % Platelet Count 302 130-400 10^3/uL Mean Platelet Volume 10.5 9.0-12.2 fL Immature Granulocyte % (Auto) 1 % Neutrophils (%) (Auto) 53 42-75 % Lymphocytes (%) (Auto) 35 12-44 % Monocytes (%) (Auto) 7 0-12 % Eosinophils (%) (Auto) 4 0-10 % Basophils (%) (Auto) 1 0-10 % Neutrophils # (Auto) 4.7 1.8-7.8 10^3/uL Lymphocytes # (Auto) 3.1 1.0-4.0 10^3/uL Monocytes # (Auto) 0.6 0.0-1.0 10^3/uL Eosinophils # (Auto) 0.4 H 0.0-0.3 10^3/uL Basophils # (Auto) 0.1 0.0-0.1 10^3/uL Immature Granulocyte # (Auto) 0.0 0.0-0.1 10^3/uL Percent Immature Platelet Fraction 5.8 0.0-7.6 % Sodium Level 141 135-145 MMOL/L Potassium Level 4.0 3.6-5.0 MMOL/L Chloride Level 106 98-107 MMOL/L Carbon Dioxide Level 21 21-32 MMOL/L Anion Gap 14 5-14 MMOL/L Blood Urea Nitrogen 6 L 7-18 MG/DL Creatinine 0.78 0.60-1.30 MG/DL Estimat Glomerular Filtration Rate 95 BUN/Creatinine Ratio 8 Glucose Level 79 70-105 MG/DL Calcium Level 9.5 8.5-10.1 MG/DL Corrected Calcium 9.3 8.5-10.1 MG/DL Total Bilirubin 0.4 0.1-1.0 MG/DL Aspartate Amino Transf (AST/SGOT) 27 5-34 U/L Alanine Aminotransferase (ALT/SGPT) 36 0-55 U/L Alkaline Phosphatase 75 40-136 U/L B-Type Natriuretic Peptide 32.2 <100.0 PG/ML Total Protein 7.5 6.4-8.2 GM/DL Albumin 4.3 3.2-4.5 GM/DL Urine Color YELLOW Urine Clarity SL CLOUDY Urine pH 6.0 5-9 Urine Specific [place] 1.020 1.016-1.022 Urine Protein NEGATIVE NEGATIVE Urine Glucose (UA) NEGATIVE NEGATIVE Urine Ketones NEGATIVE NEGATIVE Urine Nitrite NEGATIVE NEGATIVE Urine Bilirubin NEGATIVE NEGATIVE Urine Urobilinogen 0.2 < = 1.0 MG/DL Urine Leukocyte Esterase NEGATIVE NEGATIVE Urine RBC (Auto) NEGATIVE NEGATIVE Urine RBC NONE /HPF Urine WBC NONE /HPF Urine Squamous Epithelial Cells 5-10 /HPF Urine Crystals NONE /LPF Urine Bacteria MODERATE H /HPF Urine Casts NONE /LPF Urine Mucus MODERATE H /LPF Urine Culture Indicated YES My Orders Orders - GAIL JEONG MD [facility] [place] (11/20/22 18:46) Cbc With Automated Diff (11/20/22 18:46) Comprehensive Metabolic Panel (11/20/22 18:46) Ua Culture If Indicated (11/20/22 18:46) Chest 1 View, Ap/Pa Only (11/20/22 18:47) Urine Culture (11/20/22 19:20) Vital Signs/I&O 11/20/22 18:18 Temp 36.8 Pulse 81 Resp 20 B/P (MAP) 104/60 (75) Pulse Ox 95 O2 Delivery Room Air Blood Pressure Mean: 75 Progress Progress Note : Progress Note 46-year-old female with above history coming in due to bilateral lower extremity swelling. ABCs were intact and vitals are stable on presentation. The edema is mild bilaterally, equal, no redness, no clinical signs of a DVT or cellulitis. She denies any chest pain or shortness of breath associated with it. Lung sounds are clear, normal oxygen saturation, very unlikely that she has pulmonary edema as well. An IV was placed and basic labs were obtained and were significant for normal kidney function, normal hemoglobin, unremarkable BNP. Chest x-ray on my interpretation with no pulmonary edema, heart size appears stable from prior and although radiology read as borderline, it is on a portable machine which will make it slightly larger. I did a [id number] ultrasound, she has no pericardial effusion, normal ejection fraction, no clinical signs of right heart strain, no obvious DVT in t he popliteal region, and her urinary bladder was completely emptied after urination with no postvoid residual that significant. I believe the patient is otherwise stable for discharge with outpatient follow-up. This could be medication related versus dependent edema. I will have her follow-up with her PCP. Of note, the urinalysis did have a little bit of bacteria, but no nitrites, no white blood cells, no leukocyte esterase, she is not having any significant dysuria, so would not empirically treat at this point, she grew out a significantly pathogenic bacteria on culture. Diagnostic Imaging Diagonstic Imaging: Xray (chest) Comments NAME: [facility] REC#: [id number] PT STATUS: REG ER : 1975 PHYSICIAN: GAIL JEONG MD ADMIT DATE: 11/20/22/ER Signed Date of Exam:11/20/22 CHEST 1 VIEW, AP/PA ONLY Indication: Swelling in lower extremities. Frontal chest obtained at 7:13 p.m. Heart is borderline in size. There is minimal central vascular prominence without lisandra edema. There is some mild infiltrate versus atelectasis in the right medial base. Lungs are otherwise clear. There is no pneumothorax or pleural fluid. IMPRESSION: Borderline heart size with mild central vascular prominence. No lisandra edema or pleural fluid. Mild infiltrate versus atelectasis in the right medial base. Dictated by: Dictated on workstation # [id number] Dict: 11/20/221912 Trans: 11/20/221914 CV [id number] Interpreted by: MILAD PINTO MD Electronically signed by: MILAD PINOT MD 11/20/221914 Departure Impression Primary Impression: Bilateral lower extremity edema Disposition: 01 HOME, SELF-CARE Condition: Stable Departure-Patient Inst. Decision time for Depature: 20:10 Referrals: SUHA ROBLEDO DO (PCP/Family) Primary Care Physician Patient Instructions: Dependent Edema (DC) Add. Discharge Instructions: The swelling in your legs is most likely what we call "dependent edema". This means that the swelling is just increasing with gravity has a pulse fluid down your legs. Please elevate your legs on a few extra pillows at nighttime and follow back up with your primary care physician within the next week or so. They may want to do further investigation if it is not improving or if it is getting worse. Present back to the ER if you have severe chest pain or severe shortness of breath associated with this. Also if you notice 1 leg is much more swollen, red, and painful compared to the other, we would want you to be evaluated right away. Work/School Note: Work Release Form Date Seen in the Emergency Department: Nov 20, 2022 Return to Work: Nov 21, 2022 Restrictions: No Restrictions GAIL JEONG MD Nov 20, 2022 18:55
[2022-11-20 18:57] LABS: BASOPHILS # (AUTO) 0.1 10^3/uL (0.0-0.1); BASOPHILS % (AUTO) 1 % (0-10); EOSINOPHILS # (AUTO) 0.4 10^3/uL (0.0-0.3); EOSINOPHILS % (AUTO) 4 % (0-10); HEMATOCRIT 38 % (35-52); HEMOGLOBIN 12.2 g/dL (11.5-16.0); LYMPHOCYTES # (AUTO) 3.1 10^3/uL (1.0-4.0); LYMPHOCYTES % (AUTO) 35 % (12-44); MEAN CORPUSCULAR HEMOGLOBIN 30 pg (25-34); MEAN CORPUSCULAR HGB CONC 33 g/dL (32-36); MEAN CORPUSCULAR VOLUME 92 fL (80-99); MEAN PLATELET VOLUME 10.5 fL (9.0-12.2); MONOCYTES % (AUTO) 7 % (0-12); NEUTROPHILS # (AUTO) 4.7 10^3/uL (1.8-7.8); NEUTROPHILS % (AUTO) 53 % (42-75); PLATELET COUNT 302 10^3/uL (130-400); WHITE BLOOD COUNT 8.8 10^3/uL (4.3-11.0)
[2022-11-20 19:08] LABS: ALBUMIN 4.3 GM/DL (3.2-4.5); BILIRUBIN,TOTAL 0.4 MG/DL (0.1-1.0); CALCIUM 9.5 MG/DL (8.5-10.1); CREATININE SERUM 0.78 MG/DL (0.60-1.30); TOTAL PROTEIN 7.5 GM/DL (6.4-8.2)
--- NOTE | 2022-11-20 19:14 | Diagnostic Imaging Report ---
Indication: Swelling in lower extremities. Frontal chest obtained at 7:13 p.m. Heart is borderline in size. There is minimal central vascular prominence without lisandra edema. There is some mild infiltrate versus atelectasis in the right medial base. Lungs are otherwise clear. There is no pneumothorax or pleural fluid. IMPRESSION: Borderline heart size with mild central vascular prominence. No lisandra edema or pleural fluid. Mild infiltrate versus atelectasis in the right medial base. Dictated by: Dictated on workstation # [id number]
[2022-11-20 19:58] LABS: BILIRUBIN,URINE NEGATIVE (NEGATIVE); CLARITY,URINE SL CLOUDY; COLOR,URINE YELLOW; GLUCOSE, URINE (UA) NEGATIVE (NEGATIVE); KETONES,URINE NEGATIVE (NEGATIVE); LEUKOCYTE ESTERASE ,URINE NEGATIVE (NEGATIVE); NITRITE,URINE NEGATIVE (NEGATIVE); PROTEIN,URINE NEGATIVE (NEGATIVE)
[2022-11-20 19:59] LABS: BACTERIA,URINE MODERATE /HPF
[2022-11-20 20:10] VITALS: BP 122/69
== END 2022-11-20 20:10 | disposition home or self-care (01) ==
LOC: EDUNIT# 18:00 → ER 18:00
DX: R60.0 Localized edema (principal); E66.9 Obesity, unspecified; F17.210 Nicotine dependence, cigarettes, uncomplicated; Z68.41 Body mass index [BMI] 40.0-44.9, adult
CPT/HCPCS: 36415; 71045; 80053; 81000; 83880; 85025; 87088